=== PATIENT | female | born 1960 | race Caucasian/White ===

== ENCOUNTER 2022-08-26 08:39 | Day surgery (SDC) | payer MEDICARE, MEDICAID, SELFPAY ==
--- NOTE | 2022-08-26 | OP_ITS ---
OPERATION DATE: ??08/26/2022 ADDENDUM:? Please add to the end of the report:? Follow up colonoscopy should be in five years due to family history of colon cancer. ALEKSANDRA
[2022-08-26 08:59] LABS: Glucometer 201 mg/dL (74-106)
[2022-08-26 09:16] VITALS: BP 164/90; PULSE 85; RESP 16; TEMP 35.9; O2SAT 95; BMI 49.4
--- NOTE | 2022-08-26 09:24 | PC.NURSE ---
wears hearing aids
[2022-08-26] MEDS: LACTATED RINGER'S SOLUTION 1,000 ML 50 ML IV (09:30)
[2022-08-26 12:05] VITALS: BP 147/95; PULSE 77; RESP 16; TEMP 36.4; O2SAT 96
--- NOTE | 2022-08-26 12:06 | OP_ITS ---
OPERATION DATE: ??08/26/2022 PREOPERATIVE DIAGNOSIS:? Colorectal screening. POSTOPERATIVE DIAGNOSIS:? Sigmoid diverticulosis. PROCEDURE:? Colonoscopy to cecum. SURGEON:? Job Joyce M.D. ANESTHESIA: ?Monitored anesthesia care. ESTIMATED BLOOD LOSS:? Less than 1 mL. INDICATIONS AND CONSENT:? Patient is a 62-year-old female with a family history of colon cancer, presents for screening colonoscopy, last was in 2017.? Indications, risks, benefits, alternatives of proceeding with colonoscopy were explained extensively to the patient, including the risks of bleeding, colon perforation or anesthetic complications.? All of her questions were answered.? Informed consent was obtained. PROCEDURE:? Patient brought to the operating room, placed in the left lateral decubitus position.? Monitored anesthesia care was provided.? Rectal exam was performed which showed no masses or blood.? The scope was inserted into the anal canal.? Under direct visualization was advanced.? With the aid of abdominal compression, it was advanced to the cecum where cecal markings were clearly identified.? There was noted to be a good prep.? Upon withdrawal of the scope, mucosal surfaces were carefully examined.? There were no mass lesions or polyps.? No inflammatory changes or ulcerations.? There was moderate to severe sigmoid diverticulosis with redundancy and spasm of the colon.? The scope was retroflexed in the anal canal.? There were noted to be some prominent rectal veins.? No significant hemorrhoidal disease.? Scope was then withdrawn.? Patient tolerated procedure well, was sent to recovery room in good condition. CC:? Gianfranco Baker M.D. MTDRobert
[2022-08-26 12:20] VITALS: BP 155/88; PULSE 83; RESP 16; O2SAT 95
[2022-08-26 12:35] VITALS: BP 150/84; PULSE 84; RESP 16; O2SAT 96
== END 2022-08-26 12:45 | disposition home or self-care (01) ==
PROVIDERS: PCP Family Medicine; Visit Provider Surgery
PROC: (CPT 45378; principal; 2022-08-26 09:40)
DX: Z12.11 Encounter for screening for malignant neoplasm of colon (principal); K57.30 Diverticulosis of large intestine without perforation or abscess without bleeding; Z80.0 Family history of malignant neoplasm of digestive organs; Q43.8 Other specified congenital malformations of intestine; K58.9 Irritable bowel syndrome, unspecified; I87.8 Other specified disorders of veins; J44.9 Chronic obstructive pulmonary disease, unspecified; E11.22 Type 2 diabetes mellitus with diabetic chronic kidney disease; I12.9 Hypertensive chronic kidney disease with stage 1 through stage 4 chronic kidney disease, or unspecified chronic kidney disease; N18.9 Chronic kidney disease, unspecified; F32.A Depression, unspecified; H91.90 Unspecified hearing loss, unspecified ear; E78.5 Hyperlipidemia, unspecified; G47.33 Obstructive sleep apnea (adult) (pediatric); G62.9 Polyneuropathy, unspecified; Z87.891 Personal history of nicotine dependence; Z95.1 Presence of aortocoronary bypass graft; Z90.49 Acquired absence of other specified parts of digestive tract; Z90.710 Acquired absence of both cervix and uterus; Z79.82 Long term (current) use of aspirin; Z79.899 Other long term (current) drug therapy; Z79.4 Long term (current) use of insulin
CPT/HCPCS: 45378; 36415; 82948; J2704

== ENCOUNTER 2022-10-09 21:17 | Emergency (ER) | payer MEDICARE, MEDICAID, SELFPAY ==
[2022-10-09 21:22] VITALS: BP 158/93; PULSE 82; RESP 16; TEMP 36.7; O2SAT 95; BMI 34.7
--- NOTE | 2022-10-09 21:44 | CT_ITS ---
[address] [address] Patient Name: PATO HAN MRN: [id number] date: 1960 Sex: F Assigned Patient Location: ER Current Patient Location: .[facility] Accession/Order Number: [id number] Exam Date: 10/09/2022 21:56 Report Date: 10/09/2022 22:27 At the request of: INÉS SHULTZ Procedure: CT chest wo con EXAM: CT chest wo con TECHNIQUE: Axial CT images were obtained of the chest without intravenous contrast administration. Sagittal and coronal reformatted images were also obtained. Dose reduction techniques were achieved by using automated exposure control and/or adjustment of mA and/or kV according to patient size and/or use of iterative reconstruction technique. HISTORY: trauma COMPARISON: 07/28/2022 FINDINGS: Neck and Axilla: No lower neck or axillary lymphadenopathy. Mediastinum and Brigid: No hilar or mediastinal lymphadenopathy. The esophagus is grossly unremarkable without dilatation or gross mass lesion. Heart and Major Vessels: Coronary calcification. No pericardial effusion. The aorta and central pulmonary arteries are unremarkable for size. Lung Lowe: The lungs are clear of acute infiltrate or mass. Pleural Spaces: No significant pleural effusion. No pneumothorax. Upper Abdomen: No acute abnormality identified. Chest Wall: Moderate degenerative endplate changes in the mid to lower thoracic spine. Mild deformity of the right fifth rib anterior laterally could represent an acute fracture. Multiple old healed left rib fractures. Mild deformity of left sixth rib anteriorly questionable for an acute fracture. CT/CT chest wo con IMPRESSION: Question nonspecific fracture of the right fifth rib. Question undisplaced fracture of left sixth rib. No additional acute traumatic injury. Electronically authenticated by: MARIO FELDMAN Date: 10/09/2022 22:27
[2022-10-09] MEDS: KETOROLAC TROMETHAMINE 30 MG/ML VIAL 15 MG IM (22:30)
[2022-10-09] MEDS: TRAMADOL HCL 50 MG TABLET PO (23:37)
--- NOTE | 2022-10-09 23:56 | ED.GENADUL1 ---
HPI - General Adult General Chief complaint: Extremity Injury, Upper Stated complaint: FALL, UPPER EXTREMITY, CHEST PAIN Time Seen by Provider: 10/09/22 21:41 Source: patient Mode of arrival: walk-in History of Present Illness HPI narrative: The patient presenting with right-sided chest wall pain that started after she fell down few days ago and hit the right side of her chest wall with dog door, the patient mentioned that there was no dizziness no other injuries no head injury and she has been compliant for right-sided chest wall pain that comes whenever she take a deep breath or move her right arm No other complaints the patient mentioned that she have a old history of falling and she had at that time multiple rib fracture Related Data Home Medications Medication Instructions Recorded Confirmed Colace PRN constipation 08/17/22 aspirin 81 mg tablet,delayed 81 mg PO DAILY 08/17/22 08/17/22 release (Adult Aspirin Regimen) atorvastatin 80 mg tablet 80 mg PO DAILY 08/17/22 08/17/22 bupropion HCl 150 mg tablet,12 hr 150 mg PO DAILY 08/17/22 08/17/22 sustained-release (Wellbutrin SR) carvedilol 25 mg tablet (Coreg) 25 mg PO BID 08/17/22 08/17/22 duloxetine 60 mg capsule,delayed 60 mg PO DAILY 08/17/22 08/17/22 release (Cymbalta) gabapentin 400 mg capsule 400 mg PO TID 08/17/22 08/17/22 glimepiride 4 mg tablet 4 mg PO BID 08/17/22 08/17/22 insulin glargine 100 unit/mL 27 unit subcut BID 08/17/22 08/17/22 subcutaneous solution (Lantus U-100 Insulin) isosorbide mononitrate 30 mg 30 mg PO QAM 08/17/22 08/17/22 tablet,extended release 24 hr multivitamin with minerals-iron ml PO 08/17/22 fumarate 9 mg iron/15 mL oral liquid (Complete Multivitamin-Multimineral) sitagliptin phosphate 50 1 tab PO BID 08/17/22 08/17/22 mg-metformin 1,000 mg tablet (Janumet) amlodipine 5 mg tablet (Norvasc) 5 mg PO DAILY 08/26/22 08/26/22 Previous Rx's Medication Instructions Recorded meloxicam 15 mg tablet 15 mg PO DAILY PRN pain #10 tabs 10/09/22 tramadol 50 mg tablet 50 mg PO Q8H PRN pain 2 days #6 10/09/22 tabs Allergies Allergy/AdvReac Type Severity Reaction Status Date / Time No Known Drug Allergies Allergy Unverified 08/17/22 13:54 Review of Systems ROS Status of ROS 10 or more systems reviewed and unremarkable except as noted in history and below [facility] Medical History (Updated 10/09/22 @ 23:10 by Roseann Castano MD) Surgical History (Updated 08/17/22 @ 14:09 by Joana Wisdom, RN) Family History (Updated 08/17/22 @ 14:11 by Joana Wisdom, MYRNA) Brother Family history of hypertension Asthma Colon cancer Prostate cancer Father Family history of hypertension Family history of myocardial infarction Mother Family history of hypertension Asthma Social History (Updated 08/26/22 @ 09:07 by Sandy Nguyen) Within the past year, how often did you have a drink containing alcohol: never Score interpretation: A score less than 3 is consistent with normal alcohol consumption. Smoking status: Former smoker What tobacco products do you use: cigarettes Pack-years instructions: Please document either packs per day or cigarettes per day in order for pack years to calculate correctly. If using both packs per day and cigarettes per day, please make sure that they denote the same thing. If they differ, pack-years will calculate based on packs per day. Packs Per Day Cigarettes Per Day 1/4 of a pack 5 1/2 a pack 10 3/4 of a pack 15 1 pack 20 1.5 pack 30 2 packs 40 2.5 packs 50 3 packs 60 Packs per day: 1 Cigarettes per day: 20 Smoking quit date/years: >15 years ago Exam Narrative Exam Narrative: Nurses notes and vital signs reviewed and patient is not hypoxic. General: Well-appearing and in no apparent distress. Skin: Warm, dry, no pallor noted. No rash. Head: Normocephalic, atraumatic. Neck: Supple, non-tender. Eye: Pupils are equal, round and EOMI. No scleral icterus. Ears, Nose, Mouth, and Throat: TM are clear, no nasal mucosal hypertrophy. Oral mucosa is moist, no posterior oropharynx erythema, uvula is mid-line Cardiovascular: Regular Rate and Rhythm without murmur, gallop or rub. Respiratory: No accessory muscle use or respiratory distress. Lungs are clear to auscultation, no wheezing, rales or rhonchi Chest Wall: Tenderness upon palpation of the midaxillary line on the right side just below the armpit no ecchymosis Back: No midline thoracic or lumbar vertebral tenderness. No CVA tenderness Musculoskeletal: normal ROM, no calf or popliteal tenderness, no lower extremity edema/swelling GI: Abdomen is soft, non-distended. Normal bowel sounds. No masses appreciated. No tenderness to palpation. No rebound, guarding, or rigidity noted. Neurological: A&O x4. No cranial nerve dysfunction observed. No truncal ataxia. Moves all extremities. Sensation intact. Psychiatric: Cooperative and interactive. Normal mood and affect. Constitutional Vital Signs, click to edit/add: Last Vital Signs Temp 98.1 F 10/09/22 21:22 Pulse 82 10/09/22 21:22 Resp 16 10/09/22 21:22 BP 158/93 H 10/09/22 21:22 Pulse Ox 95 10/09/22 21:22 O2 Del Method Room Air 10/09/22 21:22 Course Vital Signs Vital signs: Vital Signs Temperature 98.1 F 10/09/22 21:22 Pulse Rate 82 10/09/22 21:22 Respiratory Rate 16 10/09/22 21:22 Blood Pressure 158/93 H 10/09/22 21:22 Pulse Oximetry 95 10/09/22 21:22 Oxygen Delivery Method Room Air 10/09/22 21:22 Temperature 98.1 F 10/09/22 21:22 Pulse Rate 82 10/09/22 21:22 Respiratory Rate 16 10/09/22 21:22 Blood Pressure 158/93 H 10/09/22 21:22 Pulse Oximetry 95 10/09/22 21:22 Oxygen Delivery Method Room Air 10/09/22 21:22 Medical Decision Making MDM Narrative Medical decision making narrative: CT of the chest wall shows that the patient have possible fourth rib fracture nondisplaced on the right side over the patient have history of fall and she had multiple old healing fractures The patient will be treated supportively with tramadol and Mobic She is also to use her incentive spirometer that she have at home and she was instructed about monitoring her symptoms for any fever or cough she is to come back to the ER The patient is to follow up with primary care physician in next 2-3 days or to return to the emergency department should any of the signs or symptoms worsen or new symptoms develop. The patient agrees with the following Diagnosis and Treatment plan and the patient will be discharged home. Discharge Plan Discharge Chief Complaint: Extremity Injury, Upper Clinical Impression: Closed rib fracture, Contusion of rib Patient Disposition: Home, Self-Care Time of Disposition Decision: 23:08 Condition: Good Mode of Transportation: Private Vehicle Prescriptions / Home Meds: New meloxicam 15 mg tablet 15 mg PO DAILY PRN (Reason: pain) Qty: 10 0RF tramadol 50 mg tablet 50 mg PO Q8H PRN (Reason: pain) 2 Days Qty: 6 0RF No Action glimepiride 4 mg tablet 4 mg PO BID isosorbide mononitrate 30 mg tablet extended release 24 hr 30 mg PO QAM aspirin [Adult Aspirin Regimen] 81 mg tablet,delayed release (DR/EC) 81 mg PO DAILY atorvastatin 80 mg tablet 80 mg PO DAILY carvedilol [Coreg] 25 mg tablet 25 mg PO BID Rx Instructions: must administer with a meal/food Colace PRN (Reason: constipation) duloxetine [Cymbalta] 60 mg capsule,delayed release(DR/EC) 60 mg PO DAILY gabapentin 400 mg capsule 400 mg PO TID Janumet 50-1,000 mg tablet 1 tab PO BID insulin glargine [Lantus U-100 Insulin] 100 unit/mL solution 27 unit subcut BID Complete Multivitamin-Mineral 9 mg iron/15 mL liquid PO bupropion HCl [Wellbutrin SR] 150 mg tablet sustained-release 12 hr 150 mg PO DAILY amlodipine [Norvasc] 5 mg tablet 5 mg PO DAILY Instructions: Rib Fracture (ED) Stand Alone Forms: Portal Instructions Referrals: MARIAM LAU [Primary Care Provider] - 1 week Discharge Date/Time: 10/09/22 23:47
== END 2022-10-09 23:47 | disposition home or self-care (01) ==
PROVIDERS: Emergency Provider Emergency Medicine; PCP Family Medicine
DX: S22.31XA Fracture of one rib, right side, initial encounter for closed fracture (principal); S20.211A Contusion of right front wall of thorax, initial encounter; Z79.82 Long term (current) use of aspirin; Z79.899 Other long term (current) drug therapy; Z79.4 Long term (current) use of insulin; Z87.891 Personal history of nicotine dependence; W19.XXXA Unspecified fall, initial encounter
CPT/HCPCS: 71250; 96372; 99284

== ENCOUNTER 2022-12-05 14:05 | Emergency (ER) | payer MEDICARE, MEDICAID, SELFPAY ==
[2022-12-05 14:09] VITALS: BP 143/75; PULSE 81; RESP 20; O2SAT 95; BMI 35.3
[2022-12-05 14:22] LABS: Glucometer 66 mg/dL (74-106)
--- NOTE | 2022-12-05 14:29 | ECG_ITS ---
[facility] Test Date: 2022-12-05 Pat Name: PATO HAN Department: Room: - Gender: Female Ct Scan Tech: : 1960 Requested By: MARIAM LAU Order Number: [id number] Reading MD: SHANICE SELLERS Measurements Intervals [place] Rate: 75 P: 43 [place]: 192 QRS: 53 QRSD: 80 T: 72 QT: 372 QTc: 400 Interpretive Statements 1100 Sinus rhythm 9110 normal ECG No previous ECG available for comparison Electronically Signed On 12-06-2022 18:57:47 EDT by SHANICE SELLERS
--- NOTE | 2022-12-05 14:30 | ED.GENADUL1 ---
HPI - General Adult General Chief complaint: Weakness Stated complaint: LOW BLOOD SUGAR/WEAKNESS Time Seen by Provider: 12/05/22 14:23 Source: patient and family Mode of arrival: Wheelchair History of Present Illness HPI narrative: 62-year-old female presents for low blood sugar. She was weak and nauseous. The patient and her family state that she could not is taking more of her medication and she supposed to because it's inappropriate filled syringe and her pills are in a bubble pack. No dysuria hematuria or fever. She was fine yesterday. Related Data Home Medications Medication Instructions Recorded Confirmed Colace PRN constipation 08/17/22 aspirin 81 mg tablet,delayed 81 mg PO DAILY 08/17/22 08/17/22 release (Adult Aspirin Regimen) atorvastatin 80 mg tablet 80 mg PO DAILY 08/17/22 08/17/22 bupropion HCl 150 mg tablet,12 hr 150 mg PO DAILY 08/17/22 08/17/22 sustained-release (Wellbutrin SR) carvedilol 25 mg tablet (Coreg) 25 mg PO BID 08/17/22 08/17/22 duloxetine 60 mg capsule,delayed 60 mg PO DAILY 08/17/22 08/17/22 release (Cymbalta) gabapentin 400 mg capsule 400 mg PO TID 08/17/22 08/17/22 glimepiride 4 mg tablet 4 mg PO BID 08/17/22 08/17/22 insulin glargine 100 unit/mL 27 unit subcut BID 08/17/22 08/17/22 subcutaneous solution (Lantus U-100 Insulin) isosorbide mononitrate 30 mg 30 mg PO QAM 08/17/22 08/17/22 tablet,extended release 24 hr multivitamin with minerals-iron ml PO 08/17/22 fumarate 9 mg iron/15 mL oral liquid (Complete Multivitamin-Multimineral) sitagliptin phosphate 50 1 tab PO BID 08/17/22 08/17/22 mg-metformin 1,000 mg tablet (Janumet) amlodipine 5 mg tablet (Norvasc) 5 mg PO DAILY 08/26/22 08/26/22 Previous Rx's Medication Instructions Recorded meloxicam 15 mg tablet 15 mg PO DAILY PRN pain #10 tabs 10/09/22 tramadol 50 mg tablet 50 mg PO Q8H PRN pain 2 days #6 10/09/22 tabs Allergies Allergy/AdvReac Type Severity Reaction Status Date / Time No Known Drug Allergies Allergy Unverified 08/17/22 13:54 Review of Systems ROS Narrative A ten point review of systems is negative except as noted above. [facility] Medical History (Updated 12/05/22 @ 16:50 by Julian Severino MD) Surgical History (Updated 08/17/22 @ 14:09 by Joana Wisdom, RN) Family History (Updated 08/17/22 @ 14:11 by Joana Wisdom RN) Brother Family history of hypertension Asthma Colon cancer Prostate cancer Father Family history of hypertension Family history of myocardial infarction Mother Family history of hypertension Asthma Social History (Updated 08/26/22 @ 09:07 by Sandy Nguyen) Within the past year, how often did you have a drink containing alcohol: never Score interpretation: A score less than 3 is consistent with normal alcohol consumption. Smoking status: Former smoker What tobacco products do you use: cigarettes Pack-years instructions: Please document either packs per day or cigarettes per day in order for pack years to calculate correctly. If using both packs per day and cigarettes per day, please make sure that they denote the same thing. If they differ, pack-years will calculate based on packs per day. Packs Per Day Cigarettes Per Day 1/4 of a pack 5 1/2 a pack 10 3/4 of a pack 15 1 pack 20 1.5 pack 30 2 packs 40 2.5 packs 50 3 packs 60 Packs per day: 1 Cigarettes per day: 20 Smoking quit date/years: >15 years ago Exam Narrative Exam Narrative: Nurses note and vital signs reviewed and patient is not hypoxic. General: The patient appears well and in no apparent distress. Patient is resting comfortably on cart. Skin: Warm, dry, no pallor noted. There is no rash noted. Head: Normocephalic, atraumatic Eye: Normal conjunctiva, no drainage Ears, Nose, Mouth, and Throat: oral mucosa is moist. Nares patent. Cardiovascular: Regular Rate and Rhythm Respiratory: Patient is in no distress, no accessory muscle use, lungs are clear to auscultation, no wheezing, rales or rhonchi Back: non-tender GI: soft and nontender Musculoskeletal: The patient has no evidence of calf tenderness, no pitting edema, symmetrical pulses noted bilaterally Neurological: A&O x4, normal speech Psychiatric: Cooperative Constitutional Vital Signs, click to edit/add: Last Vital Signs Pulse 81 12/05/22 14:09 Resp 20 12/05/22 14:09 BP 143/75 H 12/05/22 14:09 Pulse Ox 95 12/05/22 14:09 O2 Del Method Room Air 12/05/22 14:09 Course Vital Signs Vital signs: Vital Signs Pulse Rate 81 12/05/22 14:09 Respiratory Rate 20 12/05/22 14:09 Blood Pressure 143/75 H 12/05/22 14:09 Pulse Oximetry 95 12/05/22 14:09 Oxygen Delivery Method Room Air 12/05/22 14:09 Pulse Rate 81 12/05/22 14:09 Respiratory Rate 20 12/05/22 14:09 Blood Pressure 143/75 H 12/05/22 14:09 Pulse Oximetry 95 12/05/22 14:09 Oxygen Delivery Method Room Air 12/05/22 14:09 Medical Decision Making MDM Narrative Medical decision making narrative: the patient's blood sugar has normalized here and her workup is negative. She'll be discharged home. She has an appointment with her new physician in a few days and she'll keep that appointment. Treatment diagnosis and follow-up were discussed with the patient. Differential Diagnosis Differential Diagnosis: hypoglycemia, accidental overmedication Lab Data Lab results reviewed: Yes I reviewed the patient's lab results Labs: Lab Results 12/05/22 12/05/22 12/05/22 Range/Units 14:11 14:20 14:38 WBC 11.1 H (4.0-11.0) 10^3/uL RBC 4.67 (4.20-5.40) 10^6/uL Hgb 12.0 (12.0-16.0) g/dL Hct 37.5 (36.0-48.0) % MCV 80.3 L (81.0-99.0) fL MCH 25.7 L (26.7-34.0) pg MCHC 32.0 (29.9-35.2) g/dL RDW 14.5 (11.0-15.0) % Plt Count 285 (150-450) 10^3/uL MPV 8.6 L (9.5-13.5) fL Neut % (Auto) 58.8 (43.0-75.0) % Lymph % (Auto) 27.5 (20.5-60.0) % [place] % (Auto) 9.3 (1.7-12.0) % Eos % (Auto) 3.2 (0.9-7.0) % Baso % (Auto) 0.8 (0.2-2.0) % Neut # (Auto) 6.5 (1.4-6.5) 10^3/uL Lymph # (Auto) 3.1 (1.2-3.8) 10^3/uL [place] # (Auto) 1.0 H (0.3-0.8) 10^3/uL Eos # (Auto) 0.4 (0.0-0.7) 10^3/uL Baso # (Auto) 0.1 (0.0-0.1) 10^3/uL Abs Immat Gran (auto) 0.04 H (0.00-0.03) 10^3/uL Imm/Tot Granulo (auto) 0.4 (0.0-0.5) % Sodium 143 (136-145) mmol/L Potassium 3.9 (3.5-5.1) mmol/L Chloride 108 H (98-107) mmol/L Carbon Dioxide 25.5 (21.0-32.0) mmol/L Anion Gap 13.4 BUN 17.0 (7.0-18.0) mg/dL Creatinine 1.16 H (0.55-1.02) mg/dL Est GFR ( Amer) 57 L (>=60) Est GFR (Non-Af Amer) 47 L (>=60) BUN/Creatinine Ratio 14.7 Glucose 69 L (74-106) mg/dL Calcium 9.4 (8.5-10.1) mg/dL Urine Color Yellow (YELLOW) Urine Clarity Clear (CLEAR) Urine pH 5.5 (5.0-9.0) Ur Specific [place] >=1.030 A (1.005-1.025) Urine Protein 100 A (NEG/TRACE) mg/dL Urine Glucose (UA) 100 A (NEGATIVE) mg/dL Urine Ketones Trace A (NEGATIVE) mg/dL Urine Occult Blood Negative (NEGATIVE) Urine Nitrite Negative (NEGATIVE) Urine Bilirubin Negative (NEGATIVE) Urine Urobilinogen 0.2 (0.2-1.0) EU/dL Ur Leukocyte Esterase Negative (NEGATIVE) Urine RBC None seen (0-2) #/HPF Urine WBC None seen (NONE SEEN) #/HPF Ur Squamous Epith Cells Few A (NONE/RARE) #/LPF Urine Crystals Seen A (None Seen) #/HPF Calcium Oxalate Crystal Rare Urine Bacteria None seen (NONE SEEN) #/HPF Urine Casts Seen A (NONE SEEN) #/LPF Hyaline Casts Few Urine Mucus None seen (NONE SEEN) Ur Culture Indicated? No POC Glucose 66 L (74-106) mg/dL 12/05/22 Range/Units 14:46 WBC (4.0-11.0) 10^3/uL RBC (4.20-5.40) 10^6/uL Hgb (12.0-16.0) g/dL Hct (36.0-48.0) % MCV (81.0-99.0) fL MCH (26.7-34.0) pg MCHC (29.9-35.2) g/dL RDW (11.0-15.0) % Plt Count (150-450) 10^3/uL MPV (9.5-13.5) fL Neut % (Auto) (43.0-75.0) % Lymph % (Auto) (20.5-60.0) % [place] % (Auto) (1.7-12.0) % Eos % (Auto) (0.9-7.0) % Baso % (Auto) (0.2-2.0) % Neut # (Auto) (1.4-6.5) 10^3/uL Lymph # (Auto) (1.2-3.8) 10^3/uL [place] # (Auto) (0.3-0.8) 10^3/uL Eos # (Auto) (0.0-0.7) 10^3/uL Baso # (Auto) (0.0-0.1) 10^3/uL Abs Immat Gran (auto) (0.00-0.03) 10^3/uL Imm/Tot Granulo (auto) (0.0-0.5) % Sodium (136-145) mmol/L Potassium (3.5-5.1) mmol/L Chloride (98-107) mmol/L Carbon Dioxide (21.0-32.0) mmol/L Anion Gap BUN (7.0-18.0) mg/dL Creatinine (0.55-1.02) mg/dL Est GFR ( Amer) (>=60) Est GFR (Non-Af Amer) (>=60) BUN/Creatinine Ratio Glucose (74-106) mg/dL Calcium (8.5-10.1) mg/dL Urine Color (YELLOW) Urine Clarity (CLEAR) Urine pH (5.0-9.0) Ur Specific [place] (1.005-1.025) Urine Protein (NEG/TRACE) mg/dL Urine Glucose (UA) (NEGATIVE) mg/dL Urine Ketones (NEGATIVE) mg/dL Urine Occult Blood (NEGATIVE) Urine Nitrite (NEGATIVE) Urine Bilirubin (NEGATIVE) Urine Urobilinogen (0.2-1.0) EU/dL Ur Leukocyte Esterase (NEGATIVE) Urine RBC (0-2) #/HPF Urine WBC (NONE SEEN) #/HPF Ur Squamous Epith Cells (NONE/RARE) #/LPF Urine Crystals (None Seen) #/HPF Calcium Oxalate Crystal Urine Bacteria (NONE SEEN) #/HPF Urine Casts (NONE SEEN) #/LPF Hyaline Casts Urine Mucus (NONE SEEN) Ur Culture Indicated? POC Glucose 179 H (74-106) mg/dL ECG Data Attestation: I personally reviewed and interpreted this ECG as follows: (EKG on my interpretation shows normal sinus rhythm with rate of seventy-five and no acute changes) Discharge Plan Discharge Chief Complaint: Weakness Clinical Impression: Hypoglycemia associated with diabetes Patient Disposition: Home, Self-Care Time of Disposition Decision: 16:48 Condition: Good Mode of Transportation: Private Vehicle Prescriptions / Home Meds: No Action meloxicam 15 mg tablet 15 mg PO DAILY PRN (Reason: pain) Qty: 10 0RF tramadol 50 mg tablet 50 mg PO Q8H PRN (Reason: pain) 2 Days Qty: 6 0RF glimepiride 4 mg tablet 4 mg PO BID isosorbide mononitrate 30 mg tablet extended release 24 hr 30 mg PO QAM aspirin [Adult Aspirin Regimen] 81 mg tablet,delayed release (DR/EC) 81 mg PO DAILY atorvastatin 80 mg tablet 80 mg PO DAILY carvedilol [Coreg] 25 mg tablet 25 mg PO BID Rx Instructions: must administer with a meal/food Colace PRN (Reason: constipation) duloxetine [Cymbalta] 60 mg capsule,delayed release(DR/EC) 60 mg PO DAILY gabapentin 400 mg capsule 400 mg PO TID Janumet 50-1,000 mg tablet 1 tab PO BID insulin glargine [Lantus U-100 Insulin] 100 unit/mL solution 27 unit subcut BID Complete Multivitamin-Mineral 9 mg iron/15 mL liquid PO bupropion HCl [Wellbutrin SR] 150 mg tablet sustained-release 12 hr 150 mg PO DAILY amlodipine [Norvasc] 5 mg tablet 5 mg PO DAILY Instructions: Hypoglycemia in a Person with Diabetes (ED) Stand Alone Forms: Portal Instructions Referrals: MARIAM LAU [Primary Care Provider] - 1 week
--- NOTE | 2022-12-05 14:33 | PC.NURSE ---
pt took her BS this morning, it was 175. Took her usual 30 units of regular insulin. shortly after felt weak, dizzy and nauseous. checked BS on dexcom and was 53 -- pt did eat PB crackers and a burrito. BS 66 upon arrival to er
[2022-12-05 14:34] LABS: Basophils Absolute Auto 0.1 10^3/uL (0.0-0.1); Basophils Percent Auto 0.8 % (0.2-2.0); Eosinophils Absolute Auto 0.4 10^3/uL (0.0-0.7); Eosinophils Percent Auto 3.2 % (0.9-7.0); Hematocrit 37.5 % (36.0-48.0); Immature Granulocytes Abs Auto 0.04 10^3/uL (0.00-0.03); Immature Granulocytes Pct Auto 0.4 % (0.0-0.5); Lymphocytes Absolute Auto 3.1 10^3/uL (1.2-3.8); Lymphocytes Percent Auto 27.5 % (20.5-60.0); Mean Corpuscular Hemoglobin 25.7 pg (26.7-34.0); Mean Corpuscular Volume 80.3 fL (81.0-99.0); Mean Platelet Volume 8.6 fL (9.5-13.5); Monocytes Percent Auto 9.3 % (1.7-12.0); Neutrophils Absolute Auto 6.5 10^3/uL (1.4-6.5); Neutrophils Percent Auto 58.8 % (43.0-75.0); Platelet Count 285 10^3/uL (150-450); Red Blood Count 4.67 10^6/uL (4.20-5.40); Red Cell Distribution Width 14.5 % (11.0-15.0); White Blood Count 11.1 10^3/uL (4.0-11.0)
[2022-12-05 14:38] LABS: Anion Gap 13.4; BUN Creatinine Ratio 14.7; Calcium 9.4 mg/dL (8.5-10.1); Carbon Dioxide 25.5 mmol/L (21.0-32.0); Chloride 108 mmol/L (98-107); Estimated GFR (African America 57 (>=60); Estimated GFR (Non-African Ame 47 (>=60); Glucose 69 mg/dL (74-106); Potassium 3.9 mmol/L (3.5-5.1); Sodium 143 mmol/L (136-145)
[2022-12-05 14:54] LABS: Glucometer 179 mg/dL (74-106)
[2022-12-05] MEDS: ONDANSETRON PF 4 MG/2 ML VIAL IV (15:03)
[2022-12-05 16:37] LABS: Bilirubin Urine NEGATIVE (NEGATIVE); Blood Urine NEGATIVE (NEGATIVE); Clarity Urine CLEAR (CLEAR); Color Urine YELLOW (YELLOW); Glucose Urine UA 100 mg/dL (NEGATIVE); Ketones Urine TRACE mg/dL (NEGATIVE); Leukocyte Esterase Urine NEGATIVE (NEGATIVE); Nitrite Urine NEGATIVE (NEGATIVE); Protein Urine 100 mg/dL (NEG/TRACE); Specific Gravity Urine >=1.030 (1.005-1.025); Urobilinogen Urine 0.2 EU/dL (0.2-1.0); pH Urine 5.5 (5.0-9.0)
[2022-12-05 16:40] LABS: Bacteria Urine NONE SEEN #/HPF (NONE SEEN); Calcium Oxalate Crystals Urine RARE; Cast Seen? SEEN #/LPF (NONE SEEN); Crystals Seen? Seen #/HPF (None Seen); Hyaline Casts Urine FEW; Mucus Urine NONE SEEN (NONE SEEN); RBC Urine NONE SEEN #/HPF (0-2); Squamous Epithelial Cell Urine FEW #/LPF (NONE/RARE); WBC Urine NONE SEEN #/HPF (NONE SEEN)
[2022-12-05 16:41] LABS: Urine Culture Indicated NO
== END 2022-12-05 17:02 | disposition home or self-care (01) ==
PROVIDERS: Emergency Provider Emergency Medicine; PCP Family Medicine
DX: E11.649 Type 2 diabetes mellitus with hypoglycemia without coma (principal); Z87.891 Personal history of nicotine dependence; Z79.82 Long term (current) use of aspirin; Z79.899 Other long term (current) drug therapy; Z79.4 Long term (current) use of insulin
CPT/HCPCS: 36415; 80048; 81001; 85025; 93005; 96374; 99285

== ENCOUNTER 2023-02-11 11:14 | Outpatient (OUT) | payer MEDICARE, MEDICAID, SELFPAY ==
--- NOTE | 2023-02-11 11:16 | MM_ITS ---
Patient Name: PATO HAN MR#: [id number] : 1960 Exam Date: 02/11/2023 Ordering Doctor: DR. SUSANNAH CLEMENT . RADIOLOGY REPORT PROCEDURE: MM TOMOSYNTHESIS SCREENING BI COMPARISON: MG MAMM SCREEN 3D NELDA CAD, 10/10/2021. MG MAMM SCREEN 3D NELDA CAD, 10/07/2020. MG MAMM SCREEN NELDA W CAD, 04/10/2019. MG MAMM NELDA SCRN W CAD DIG, 04/01/2007. INDICATIONS: Screening Calculator Name NCI Breast Cancer Risk Assessment Tool 5 Year Breast Cancer Risk 1.40% Lifetime Breast Cancer Risk 5.80% Personal Breast Cancer No Personal Ovarian Cancer No Treatments None Family Cancers Grandmother-maternal with liver cancer at age 69; Grandmother-paternal with colon cancer at age 72; Aunt-maternal with breast cancer at age 50; Aunt-maternal with breast cancer at age 63; Uncle-maternal with colon cancer at age 59. LOCATION: [facility] BREAST COMPOSITION: Scattered areas fibroglandular density. FINDINGS: DIAGNOSTIC CATEGORY 1--NEGATIVE. RIGHT BREAST: No significant suspicious finding. No significant change has occurred. LEFT BREAST: No significant suspicious finding. No significant change has occurred. RECOMMENDATIONS: ROUTINE MAMMOGRAM AND CLINICAL EVALUATION IN 12 MONTHS. PLEASE NOTE: A NORMAL MAMMOGRAM DOES NOT EXCLUDE THE POSSIBILITY OF BREAST CANCER. A CLINICALLY SUSPICIOUS PALPABLE LUMP SHOULD BE BIOPSIED. Dictated by: Mauro Danielle M.D. on 02/12/2023 at 13:33 Approved by: Mauro Danielle M.D. on 02/12/2023 at 13:40
== END 2023-02-11 11:15 | disposition home or self-care (01) ==
LOC: MAMMO 11:14
PROVIDERS: PCP Family Medicine; Visit Provider Family Medicine
DX: Z12.31 Encounter for screening mammogram for malignant neoplasm of breast (principal); Z80.8 Family history of malignant neoplasm of other organs or systems; Z80.0 Family history of malignant neoplasm of digestive organs; Z80.3 Family history of malignant neoplasm of breast
CPT/HCPCS: 77063; 77067

== ENCOUNTER 2023-06-02 07:41 | Outpatient (OUT) | payer MEDICARE, MEDICAID, SELFPAY ==
--- OUTSIDE RECORDS SUMMARY | 2023-06-02 07:44 | XMS_ITS | CCD ---
Demographics Address [address] [place] [address] Preferred Language en Marital Status Voodoo Affiliation Unknown Race White Ethnic Group or Author Organization [facility] Care Team Providers Care Fisher Purse Seine Name Role Phone PHYSICIAN, DEFAULT Admitting Unavailable PHYSICIAN, DEFAULT Attending Unavailable James Live Admitting Unavailable ANDREI TSE Referring Unavailable NORTH BILLERICA, GIANFRANCO Primary Care Unavailable CATE RAMIRZE Attending Unavailable FELIPE HUGO Admitting Unavailable NORTH BILLERICA, GIANFRANCO Referring Unavailable SID, GIANFRANCO Primary Care Unavailable Karen Ruvalcaba Attending Unavailable NM Procedure Practitioner Unavailab le Bernardo, Karen Surgeon Unavailable NM Procedure Practitioner Unavailab le UNKNOWN, PROVIDER Surgeon Unavailable NM Procedure Practitioner Unavailab le OANH, WANG R Surgeon Unavailable NM Procedure Practitioner Unavailab PHILIPPE Infante Surgeon Unavailable RAJINDER MOHAMUD Admitting Unavailable POCATELLO, DR ART June Consulting Unavailable NORTH BILLERICA, DR BECERRA Primary Care Unavailable RAJINDER MOHAMUD Attending Unavailable RAJINDER MOHAMUD Consulting Unavailable IDALIA, DR LUIS Santa Admitting Unavailabl e SID, DR BECERRA Primary Care Unavailable IDALIA, DR LUIS Santa Attending Unavailabl e IDALIA, DR LUIS Santa Consulting Unavailabl e Paolo Reyna Consulting Unavailable UNLSAVITA Glass Consulting Unavailable NORTH BILLERICA, DR BECERRA Attending Unavailable NORTH BILLERICA, DR BECERRA Admitting Unavailable NORTH BILLERICA, DR BECERRA Consulting Unavailable NORTH BILLERICA, DR BECERRA Primary Care Unavailable ROMAN, DR ISI Barajas Consulting Unavailable NORTH BILLERICA, DR BECERRA Admitting Unavailable NORTH BILLERICA, DR BECERRA Attending Unavailable NORTH BILLERICA, DR BECERRA Consulting Unavailable NORTH BILLERICA, DR BECERRA Primary Care Unavailable NORTH BILLERICA, DR BECERRA Admitting Unavailable NORTH BILLERICA, DR BECERRA Attending Unavailable NORTH BILLERICA, DR BECERRA Consulting Unavailable NORTH BILLERICA, DR BECERRA Primary Care Unavailable MARTINE MCINTOSH Attending Unavailable Dandre Burger Primary Care Physician Gianfranco Lau MD Primary Care Provider Job MOORE Referring Unavailable Job MOORE Attending Unavailable Dandre Burger Attending Unavailable Dandre Burger Attending Unavailable Dandre Bugrer Attending Unavailable Dandre Burger Attending Unavailable Dandre Burger Attending Unavailable Dandre Burger Attending Unavailable Dandre Burger Attending Unavailable Dandre Burger Admitting Unavailable Dandre Burger Admitting Unavailable Dandre Burger Attending Unavailable Ivett Rios Admitting Unavailable Ivett Rios Attending Unavailable GIANFRANCO LAU P Referring Unavailable NILLJob R Attending Unavailable GIANFRANCO LAU Referring Unavailable NILLJob Attending Unavailable SEAN VALIENTE Attending Unavailable SEAN VALIENTE Attending Unavailable Allergies Allergy Classification Reported Allergen(s) Allergy Type Date of Onset Reaction(s) Facility (1 source) No Known Medication Allergies; Translations: [No Known Medication Allergies] Propensity to adverse reactions (disorder) [facility] Repository Medications Current Medications Medication Drug Class(es) Dates Sig (Normalized) Sig (Original) amLODIPine 5 mg oral tablet (3 sources) Dihydropyridine Calcium Channel Connor Start: 07-31-2022 take 1 tablet by mouth once daily amLODIPine 5 mg Tab 5 mg = 1 tab(s), Oral, Daily, Refills(s) 0 Start Date: 07/31/22 Status: Ordered aspirin 81 mg delayed release oral tablet (3 sources) Platelet Aggregation Inhibitor, Nonsteroidal Anti-inflammatory Drug Start: 07-31-2022 take 1 tablet by mouth once daily aspirin 81 mg Oral EC Tab 81 mg = 1 tab(s), Oral, Daily, Refills(s) 0 Start Date: 07/31/22 Status: Ordered atorvastatin 80 mg oral tablet (3 sources) HMG-CoA Reductase Inhibitor Start: 07-31-2022 take 1 tablet by mouth once daily atorvastatin 80 mg Tab 80 mg = 1 tab(s), Oral, Daily, Refills(s) 0 Start Date: 07/31/22 Status: Ordered 12 hr buPROPion hydrochloride 150 mg extended release oral tablet (3 sources) Aminoketone Start: 07-31-2022 take 1 tablet by mouth once daily Wellbutrin SR 150 mg Tab-ER 150 mg = 1 tab(s), Oral, Daily, Refills(s) 0 Start Date: 07/31/22 Status: Ordered carvedilol 25 mg oral tablet (3 sources) alpha-Adrenergic Connor, beta-Adrenergic Connor Start: 07-31-2022 carvedilol 25 mg Tab 37.5 mg = 1.5 tab(s), Oral, BID, Refills(s) 0 Start Date: 07/31/22 Status: Ordered Start: 07-31-2022 take 1 tablet by alejandro twice daily carvedilol 25 mg Tab 25 mg = 1 tab(s), Oral, BID, Refills(s) 0 Start Date: 07/31/22 Status: Ordered docusate sodium 100 mg oral capsule (3 sources) Start: 07-31-2022 take 1 capsule by mouth once daily as needed for constipation Colace 100 mg Cap 100 mg = 1 cap(s), Oral, Daily, PRN for constipation, Refills(s) 0 Start Date: 07/31/22 Status: Ordered 0.5 ml dulaglutide 3 mg/ml auto-injector (3 sources) GLP-1 Receptor Agonist Start: 04-21-2023 inject 1.5 mg by subcutaneous injection every week Trulicity Pen 1.5 mg/0.5 mL subcutaneous solution 1.5 mg, SubCutaneous, qWeek, # 12 EA, Refills(s) 0, Pharmacy: [facility] #[id number], 157.5, cm, 04/05/23 7:03:00 EST, Height/Length Dosing, 88.1, kg, 04/05/23 7:03:00 EST, Weight Dosing Start Date: 04/21/23 Status: Ordered Start: 03-22-2023 inject 0.75 mg by lizarraga bcutaneous injection every week Trulicity Pen 0.75 mg/0.5 mL subcutaneous solution See Instructions, inject 0.75 milligrams subcutaneously every week, # 2 mL, Refills(s) 0, Pharmacy: [facility] #[id number], 157.5, cm, 12/14/22 6:58:00 EDT, Height/Length Dosing, 88.4, kg, 12/14/22 6:58:00 EDT, Weight Dosing Start Date: 03/22/23 Status: Ordered Start: 12-14-2022 inject 0.75 mg by lizarraga bcutaneous injection every week Trulicity Pen 0.75 mg/0.5 mL subcutaneous solution 0.75 mg, SubCutaneous, qWeek, # 4 EA, Refills(s) 0, Pharmacy: [facility] #[id number], 157.5, cm, 12/14/22 6:58:00 EDT, Height/Length Dosing, 88.4, kg, 12/14/22 6:58:00 EDT, Weight Dosing Start Date: 12/14/22 Status: Ordered duloxetine 60 mg Cap-DR (3 sources) Start: 07-31-2022 take 1 capsule by mouth once daily duloxetine 60 mg Cap-DR = 1 cap(s), Oral, Daily, Refills(s) 0 Start Date: 07/31/22 Status: Ordered gabapentin 400 mg oral capsule (3 sources) Anti-epileptic Agent Start: 12-28-2022 take 1 capsule by mouth three times daily gabapentin 400 mg Cap 400 mg = 1 cap(s), Oral, TID, # 270 cap(s), Refills(s) 0, Pharmacy: [facility] #[id number], 157.5, cm, 12/14/22 6:58:00 EDT, Height/Length Dosing, 88.4, kg, 12/14/22 6:58:00 EDT, Weight Dosing Start Date: 12/28/22 Status: Ordered Start: 07-22-2022 take 1 capsule by [facility] three times daily gabapentin 400 mg Cap 400 mg = 1 cap(s), Oral, TID, Refills(s) 0 Start Date: 07/22/22 Status: Ordered glimepiride 4 mg oral tablet (3 sources) Sulfonylurea Start: 07-22-2022 take 1 tablet by mouth twice daily Amaryl 4 mg Tab 4 mg = 1 tab(s), Oral, BID, Refills(s) 0 Start Date: 07/22/22 Status: Ordered insulin glargine 100 unt/ml injectable solution (3 sources) Insulin Analog Start: 07-22-2022 inject 30 [IU] by subcutaneous injection twice daily Lantus 100 units/mL Injection-Insulin See Instructions, 30 unit(s) SubCutaneous BID, Refills(s) 0 Start Date: 07/22/22 Status: Ordered Start: 07-22-2022 inject 27 [IU] by lizarraga bcutaneous injection twice daily Lantus 100 units/mL Injection-Insulin 27 unit(s), SubCutaneous, BID, Refills(s) 0 Start Date: 07/22/22 Status: Ordered 24 hr isosorbide mononitrate 30 mg extended release oral tablet (3 sources) Nitrate Vasodilator Start: 12-14-2022 take 1 tablet by mouth once daily isosorbide mononitrate 30 mg ER Tab 30 mg = 1 tab(s), Oral, Daily, Refills(s) 0 Start Date: 12/14/22 Status: Ordered metFORMIN hydrochloride 1000 mg / SITagliptin 50 mg oral tablet (3 sources) Biguanide, Dipeptidyl Peptidase 4 Inhibitor Start: 07-22-2022 take 1 tablet by mouth twice daily Janumet 50 mg/1000 mg oral tablet 1 tab(s), Oral, BID, Refill(s) 0 Start Date: 07/22/22 Status: Ordered methylPREDNISolone 4 mg oral tablet (1 source) Corticosteroid Start: 12-14-2022 End: 12-20-2022 Medrol Dosepack 4 mg Tab = 1 packet(s), Oral, As Directed, as directed on package labeling, X 6 day(s), # 21 tab(s), Refills(s) 0, Pharmacy: [facility] #[id number], 157.5, cm, 12/14/22 6:58:00 EDT, Height/Length Dosing, 88.4, kg, 12/14/22 6:58:00 EDT, Weight Dosing Start Date: 12/14/22 Stop Date: 12/20/22 Status: Ordered Multi Vitamins oral tablet (3 sources) Start: 07-31-2022 take 1 tablet by mouth once daily Multi Vitamins oral tablet 1 tab(s), Oral, Daily, Refill(s) 0 Start Date: 07/31/22 Status: Ordered Problems Active Problems Problem Classification Problem Date Documented Date Episodic/Chronic Calculus of urinary tract (1 source) Personal history of urinary calculi; Translations: [PERSONAL HISTORY OF URINARY CALCULI] Onset: 04-25-2018 Episodic Cancer; other and unspecified primary (1 source) Personal history of malignant neoplasm of soft tissue; Translations: [PERSONAL HISTORY OF MALIGNANT NEOPLASM OF SOFT TISSUE] Onset: 04-25-2018 Episodic Cardiac dysrhythmias (1 source) Tachycardia, unspecified; Translations: [TACHYCARDIA, UNSPECIFIED] Onset: 04-25-2018 Episodic Chronic kidney disease (4 sources) Chronic kidney disease, unspecified; Translations: [Chronic kidney disease] Onset: 10-16-2021 07-22-2022 Chronic Chronic obstructive pulmonary disease and bronchiectasis (4 sources) Chronic obstructive pulmonary disease, unspecified; Translations: [Chronic obstructive lung disease] Onset: 04-25-2018 07-22-2022 Chronic Coagulation and hemorrhagic disorders (1 source) Thrombocytopenia, unspecified; Translations: [THROMBOCYTOPENIA, UNSPECIFIED] Onset: 04-25-2018 Chronic Coronary atherosclerosis and other heart disease (9 sources) Atherosclerotic heart disease of [place] coronary artery with unstable angina pectoris; Translations: [Preinfarction syndrome] Onset: 03-20-2018 Chronic Coronary atherosclerosis and other heart disease (2 sources) Presence of aortocoronary bypass graft; Translations: [Presence of aortocoronary bypass graft] Onset: 06-11-2022 Episodic Deficiency and other anemia (1 source) Iron deficiency anemia secondary to blood loss (chronic); Translations: [IRON DEFICIENCY ANEMIA SECONDARY TO BLOOD LOSS (CHRONIC)] Onset: 04-25-2018 Chronic Diabetes mellitus with complications (6 sources) Type 2 diabetes mellitus with diabetic chronic kidney disease; Translations: [Disorder of kidney due to diabetes mellitus] Onset: 10-10-2021 Chronic Diabetes mellitus with complications (1 source) Type 2 diabetes mellitus with diabetic polyneuropathy; Translations: [TYPE 2 DIABETES MELLITUS WITH DIABETIC POLYNEUROPATHY] Onset: 03-20-2018 Diabetes mellitus without complication (7 sources) Type 2 diabetes mellitus without complications; Translations: [Diabetes mellitus] Onset: 07-20-2022 Chronic Comment on above: linked DM with HLD p er outpatient CDI policy. Disorders of lipid metabolism (4 sources) Hyperlipidemia, unspecified; Translations: [Hyperlipidemia] Onset: 04-25-2018 07-22-2022 Chronic Essential hypertension (6 sources) Essential (primary) hypertension; Translations: [Essential hypertension] Onset: 03-20-2018 Chronic Fluid and electrolyte disorders (1 source) Acidosis; Translations: [ACIDOSIS] Onset: 03-20-2018 Episodic Headache; including migraine (2 sources) Headache 12-28-2022 Episodic Mood disorders (3 sources) Depressive disorder 07-22-2022 Chronic Noninfectious gastroenteritis (1 source) Noninfective gastroenteritis and colitis, unspecified; Translations: [NONINFECTIVE GASTROENTERITIS AND COLITIS, UNSPECIFIED] Onset: 03-20-2018 Episodic Nonspecific chest pain (5 sources) Chest pain, unspecified; Translations: [Other chest pain] Onset: 09-10-2021 Episodic Other aftercare (2 sources) jail (current) use of aspirin; Translations: [SENIOR CARE (CURRENT) USE OF ASPIRIN] Onset: 03-20-2018 Episodic Other aftercare (1 source) Other nursing home (current) drug therapy; Translations: [OTH MUTUAL FUND MANAGER CURRENT DRUG THERAPY] Onset: 07-29-2022 Episodic Other aftercare (1 source) computer terminal operator (current) use of insulin; Translations: [SENIOR CARE CURRENT USE OF INSULIN] Onset: 07-29-2022 Episodic Other aftercare (1 source) computer terminal operator (current) use of oral hypoglycemic drugs; Translations: [MUTUAL FUND MANAGER (CURRENT) USE OF ORAL HYPOGLYCEMIC DRUGS] Onset: 04-25-2018 Other ear and sense organ disorders (3 sources) Hearing loss 07-22-2022 Chronic Other ear and sense organ disorders (2 sources) Sensorineural hearing loss, bilateral; Translations: [Sensorineural hearing loss, bilateral] 04-21-2023 Chronic Other fractures (1 source) Multiple fractures of ribs, left side, subsequent encounter for fracture with routine healing; Translations: [MULTIPLE FX OF RIBS, LEFT SIDE, SUBS FOR FX W ROUTN HEAL] Onset: 03-20-2018 Episodic Other hematologic conditions (2 sources) Microcytosis 12-28-2022 Episodic Other lower respiratory disease (1 source) Hypoxemia; Translations: [HYPOXEMIA] Onset: 04-25-2018 Episodic Other nervous system disorders (3 sources) Polyneuropathy 07-22-2022 Chronic Other nutritional; endocrine; and metabolic disorders (3 sources) Body mass index 30+ - obesity 07-31-2022 Chronic Pneumonia (except that caused by tuberculosis or sexually transmitted disease) (1 source) Pneumonia, unspecified organism; Translations: [PNEUMONIA, UNSPECIFIED ORGANISM] Onset: 03-20-2018 Episodic Residual codes; unclassified (1 source) Obstructive sleep apnea (adult) (pediatric); Translations: [OBSTRUCTIVE SLEEP APNEA (ADULT) (PEDIATRIC)] Onset: 04-25-2018 Chronic Residual codes; unclassified (3 sources) Obstructive sleep apnea syndrome 07-22-2022 Chronic Residual codes; unclassified (1 source) Acquired absence of other specified parts of digestive tract; Translations: [ACQUIRED ABSENCE OF OTHER SPECIFIED PARTS OF DIGESTIVE TRACT] Onset: 04-25-2018 Episodic Residual codes; unclassified (1 source) Acquired absence of both cervix and uterus; Translations: [ACQUIRED ABSENCE OF BOTH CERVIX AND UTERUS] Onset: 04-25-2018 Episodic Residual codes; unclassified (1 source) Family history of ischemic heart disease and other diseases of the circulatory system; Translations: [FAMILY HX OF ISCHEM HEART DIS AND OTH DIS OF THE CIRC SYS] Onset: 04-25-2018 Episodic Residual codes; unclassified (3 sources) Family history of cancer of colon 07-31-2022 Episodic Retinal detachments; defects; vascular occlusion; and retinopathy (3 sources) 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 Septicemia (except in labor) (1 source) Sepsis Onset: 03-20-2018 Episodic Septicemia (except in labor) (3 sources) Sepsis, unspecified organism; Translations: [SEPSIS, UNSPECIFIED ORGANISM] Onset: 03-20-2018 Spondylosis; intervertebral disc disorders; other back problems (3 sources) Backache 12-14-2022 Episodic Substance-related disorders (6 sources) Nicotine dependence, cigarettes, uncomplicated; Translations: [Smoker] Onset: 04-25-2018 07-22-2022 Chronic Unclassified (3 sources) Patient encounter status 07-31-2022 Unclassified (2 sources) Long-term current use of insulin 12-24-2022 Comment on above: Current Medication L ist includes Lantus. added per outpatient CDI policy. Past or Other Problems Problem Classification Problem Date Documented Da te Episodic/Chronic Other screening for suspected conditions (not mental disorders or infectious disease) (1 source) Encounter for screening mammogram for malignant neoplasm of breast; Translations: [ENC SCR MAMMO MALIG NEOPLASM BREAST] Onset: 10-16-2021 Episodic Residual codes; unclassified (1 source) Family history of malignant neoplasm of breast; Translations: [FAMILY HX MALIG NEOPLASM OF BREAST] Onset: 10-16-2021 Episodic Residual codes; unclassified (1 source) Family history of malignant neoplasm of digestive organs; Translations: [FAM HX MALIG NEOPLASM DIGESTIV ORGN] Onset: 10-16-2021 Episodic Results Test Name Value Interpretation Reference Range Facil ity .Interpretation:on 4 HCV Ab IA Ql Comment Invalid Interpretation Code [facility] Comment on above: Result Comment: Not infected with HCV unless early or acute infection is suspected (which may be delayed in an immunocompromised individual), or other evidence exists to indicate HCV infection. Performed at: [facility] [id number] PhD Momarciakeenan Meyers Performed By: #### 2 [id number] ####[facility] [id number] [place] [address] HCV Antibody RFX to Quant PC Ian 05-07-2023 HCV IgG IA Ql Non-Reactive Invalid Interpretation Code Non Reactive [facility] Comment on above: Result Comment: Perf ormed at: [facility] [address] [place], [place] [id number] PhD Ana Meyers Performed By: #### 2 [id number] ####[facility] [id number] [place] [address] Family Medicine Office/Clini c Noteon 05-06-2023 Family Medicine Office/Clinic Note Chief Complaint Subsequent Medicare Wellness Visit Review of Systems PHQ Score Initial Depression Screen Score: 2 SCORE Physical Exam Vitals & Measurements HR: 77(Peripheral) BP: 142/90 SpO2: 97% HT: 160 cm HT: 63 in WT: 87.1 kg WT: 191.62 lb BMI: 34.02 Assessment/Plan 1. Annual visit for general adult medical examination with abnormal findings (Z00.01: Encounter for general adult medical examination with abnormal findings) The patient was given a customized and personalized print out of all the current AHRQ USPSTF?s recommendations for preventative services and all current CDC recommended immunizations, relevant risk recommendations and the following patient brochures were given. Reviewed Medicare preventative services checklist. CDC-Falls Prevention and home safety screening reviewed. Patient denies any falls in last 12 months, voices no worry about falling, exhibits no problems with sitting and standing. Pt voices understanding with keeping walk way area free of clutter to prevent tripping and/or falling. [place] Advance Directives reviewed, forms provided to patient. Patient denies any problems with ADL?s and Instrumental ADL?s. Cognitive screening completed with memory and clock face drawing. Immunization Record reviewed with the patient. COVID vaccines have been administered, immunization record is up to date. Allergies and medications reviewed and up to date. Patient denies concerns with taking medication as prescribed, reviewed OTC medications with patient, medication list up to date. Blood tests were reviewed: Discussed what tests need to be updated. Labs were ordered, will have completed prior to next PCP visit. Will have labs completed with [facility]. Colonoscopy up to date, due for repeat 08/27/2027. DEXA scan ordered. Mammogram up to date, 02/11/2023. Reviewed concerns with bladder control over past 6 months with no concerns. Reviewed pain symptoms with patient: patient denies pain symptoms Reviewed all outside providers that patient follows. Last visit summary notes available in chart and/or have been requested. Follow up scheduled, 07/05/2023 AWV has been scheduled, 05/05/2024 Abnormal findings with elevated BP, serial assessment completed and documented. Patient has POV 07/05/2023 instructed patient to monitor BP and bring log to POV. Educated patient on how to properly check BP. DASH diet reviewed, handout provided. HTN stoplight reviewed with BP goal to be <140/90. Reviewed different factors that can alter blood pressure readings. Education handout provided with s/s to monitor for and report to provider. 2. Other problems related to lifestyle (Z72.89: Other problems related to lifestyle) Information provided and discussed with CDC recommendation that everyone born from [birth year]30-5317 get tested for Hepatitis C. This is also referred to as baby boomers and are 5 times more likely to be at risk. Transmission of Hepatitis C was at its highest. Medicare does cover a once in a lifetime testing if a patient is non-symptomatic. Blood work has been ordered, will review results with PCP. 3. Ovarian failure (E28.39: Other primary ovarian failure) Reviewed recommended bone mineral density testing for women who are 65 years of age or older. Educational handout for Bone Health reviewed and provided to the patient during today's Medicare Wellness visit. Medicare recommends testing every 5 years if results are WNL and every 2 years if results shows low bone mass. This is a deterioration of bone structure and can increase the risk of a fracture with falls. Eating a well-balanced diet with plenty of Calcium and Vitamin D will help to protect your bones. Daily weight-bearing physical activity can help build strong bones, improve bone amounts, and may reduce the risk of weakening of bones (Osteoporosis) later in life. Dexa scan ordered, faxed to [facility]. 4. Coronary artery disease (I25.10: Atherosclerotic heart disease of ham[place] coronary artery without angina pectoris) Patient follows up with Disciplinary Hearing Officer, Dr. Mcintosh every 12 months. Last visit summary notes are available in chart and have been reviewed. Denies concerns with SOB, chest pain or tightness. Taking medications daily as directed. Reviewed Cardiac nutritional recommendations with handout provided. Patient voices understanding with signs and symptoms to monitor for and report to provider. 5. Depression (F32.A: Depression, unspecified) Patient taking Cymbalta daily, voices medication is effective. Follows up with PCP with medication management and symptom control. PHQ-9 risk assessment completed with negative findings. Total risk score 2. Patient denies any suicidal ideations at this time. Reviewed additional signs/symptoms to monitor for and report to provider. 6. Hearing loss (H91.90: Unspecified hearing loss, unspecified ear) Patient wears hearing aids, states effective. Follows with [facility]. 7. Type 2 diabetes mellitus with hyperlipidemia (E11.69: Type 2 diabetes mellitus (more content not included)... [facility] Comment on above: Result Comment: Elec tronically Signed By: Ivett Byrnes\.br\Date and Time Signed: 05/06/23 10:34 EST\.br\Electronically Co-Signed By: Asad Son\.br\Date and Time Co-Signed: 05/05/23 14:21 EST Physician Referralon 024 Physician Referral [id number]. 00TIFF [facility] Screenson 05-06-2023 Screens [id number] 20 [id number] 0TIFF [facility] Ambulatory Visit Summaryon 0 05-05-2023 Ambulatory Visit Summary PATO CORRAL :1960 Visit Date:05/05/2023 Ambulatory Visit Instructions Your Diagnosis Annual visit for general adult medical examination with abnormal findings Other problems related to lifestyle Ovarian failure Coronary artery disease Depression Hearing loss Type 2 diabetes mellitus with hyperlipidemia Class 1 obesity due to excess calories in adult BMI 34.0-34.9,adult Tests Performed BD Bone Density DEXA -- Results Pending -- Please visit your patient portal for your results or contact your primary care physician. Your Care Team Attending Physician - Dandre Burger MD. Primary Care Physician - Dandre Burger MD This Is Your Medications List amlodipine (amLODIPine 5 mg Tab) aspirin (aspirin 81 mg Oral EC Tab) atorvastatin (atorvastatin 80 mg Tab) buPROPion (Wellbutrin SR 150 mg Tab-ER) carvedilol (carvedilol 25 mg Tab) docusate (Colace 100 mg Cap) dulaglutide (Trulicity Pen 1.5 mg/0.5 mL subcutaneous solution) duloxetine (duloxetine 60 mg Cap-DR) gabapentin (gabapentin 400 mg Cap) glimepiride (Amaryl 4 mg Tab) insulin glargine (Lantus 100 units/mL Injection-Insulin) isosorbide mononitrate (isosorbide mononitrate 30 mg ER Tab) levothyroxine (levothyroxine 88 mcg (0.088 mg) Tab) metformin-sitagliptin (Janumet 50 mg/1000 mg oral tablet) multivitamin (Multi Vitamins oral tablet) Procedures Performed Colonoscopy (05/04/2016), CABG x 4 - Coronary artery bypass grafts x 4, Carpal tunnel release, section, section, section, Cholecystectomy, Excision of lipoma of back, Vaginal total hysterectomy. Discharge Vitals Heart Rate (Peripheral) 77 Blood Pressure 142/90 Height 63 in Height 160 cm Weight 191.62 lb Weight 87.1 kg BMI 34.02 What to do next Scheduled Follow-Up Appointments Wednesday 9:15 AM EDT With: Dandre Burger MD Where: [facility] Invalid Interpretation Code [address] [place] [address]- \.br\ Someone Will Contact You Regarding These Appointments\.br \ [facility] External Ambulatory Referral, Patient choice/referral by family/friend, Diabetic Education, patient wants to complete at [facility], 05/05/23 12:35:00 EST, Type 2 diabetes mellitus with hyperlipidemia [facility] Ambulatory Visit Summary ELLISPATO :1960 Visit Date:05/05/2023 Ambulatory Visit Instructions Your Diagnosis Annual visit for general adult medical examination with abnormal findings Other problems related to lifestyle Ovarian failure Coronary artery disease Depression Hearing loss Type 2 diabetes mellitus with hyperlipidemia Class 1 obesity due to excess calories in adult BMI 34.0-34.9,adult Your Care Team Attending Physician - Dandre Burger MD Primary Care Physician - aDndre Burger MD This Is Your Medications List amlodipine (amLODIPine 5 mg Tab) aspirin (aspirin 81 mg Oral EC Tab) atorvastatin (atorvastatin 80 mg Tab) buPROPion (Wellbutrin SR 150 mg Tab-ER) carvedilol (carvedilol 25 mg Tab) docusate (Colace 100 mg Cap) dulaglutide (Trulicity Pen 1.5 mg/0.5 mL subcutaneous solution) duloxetine (duloxetine 60 mg Cap-DR) gabapentin (gabapentin 400 mg Cap) glimepiride (Amaryl 4 mg Tab) insulin glargine (Lantus 100 units/mL Injection-Insulin) isosorbide mononitrate (isosorbide mononitrate 30 mg ER Tab) levothyroxine (levothyroxine 88 mcg (0.088 mg) Tab) metformin-sitagliptin (Janumet 50 mg/1000 mg oral tablet) multivitamin (Multi Vitamins oral tablet) Procedures Performed Colonoscopy (05/04/2016), CABG x 4 - Coronary artery bypass grafts x 4, Carpal tunnel release, section, section, section, Cholecystectomy, Excision of lipoma of back, Vaginal total hysterectomy. What to do next Scheduled Follow-Up Appointments Wednesday 9:15 AM EDT With: Dandre Burger MD Where: [facility] Patient Educationon 05-05-19 Patient Education Caregiving Fall Prevention in the Home, Adult Falls can cause injuries and affect people of all ages. There are many simple things that you can do to make your home safe and to help prevent falls. Ask for help when making these changes, if needed. What actions can I take to prevent falls? General instructions ? Use good lighting in all rooms. Replace any light bulbs that burn out, turn on lights if it is dark, and use night-lights. ? Place frequently used items in [id number] places. Lower the shelves around your home if necessary. ? Set up furniture so that there are clear paths around it. Avoid moving your furniture around. ? Remove throw rugs and other tripping hazards from the floor. ? Avoid walking on wet floors. ? Fix any uneven floor surfaces. ? Add color or contrast paint or tape to grab bars and handrails in your home. Place contrasting color strips on the first and last steps of staircases. ? When you use a stepladder, make sure that it is completely opened and that the sides and supports are firmly locked. Have someone hold the ladder while you are using it. Do not climb a closed stepladder. ? Know where your pets are when moving through your home. What can I do in the bathroom? ? Keep the floor dry. Immediately clean up any water that is on the floor. ? Remove soap buildup in the tub or shower regularly. ? Use nonskid mats or decals on the floor of the tub or shower. ? Attach bath mats securely with double-sided, nonslip rug tape. ? If you need to sit down while you are in the shower, use a plastic, nonslip stool. ? Install grab bars by the toilet and in the tub and shower. Do not use towel bars as grab bars. What can I do in the bedroom? ? Make sure that a bedside light is easy to reach. ? Do not use oversized bedding that reaches the floor. ? Have a firm chair that has side arms to use for getting dressed. What can I do in the kitchen? ? Clean up any spills right away. ? If you need to reach for something above you, use a sturdy step stool that has a grab bar. ? Keep electrical cables out of the way. ? Do not use floor albanian or wax that makes floors slippery. If you must use wax, make sure that it is non-skid floor wax. What can I do with my stairs? ? Do not leave any items on the stairs. ? Make sure that you have a light switch at the top and the bottom of the stairs. Have them installed if you do not have them. ? Make sure that there are handrails on both sides of the stairs. Fix handrails that are broken or loose. Make sure that handrails are as long as the staircases. ? Install non-slip stair treads on all stairs in your home. ? Avoid having throw rugs at the top or bottom of stairs, or secure the rugs with carpet tape to prevent them from moving. ? Choose a carpet design that does not hide the edge of steps on the stairs. ? Check any carpeting to make sure that it is firmly attached to the stairs. Fix any carpet that is loose or worn. What can I do on the outside of my home? ? Use bright outdoor lighting. ? Regularly repair the edges of walkways and driveways and fix any cracks. ? Remove high doorway thresholds. ? Trim any shrubbery on the main path into your home. ? Regularly check that handrails are securely fastened and in good repair. Both sides of all steps should have handrails. ? Install guardrails along the edges of any raised decks or porches. ? Clear walkways of debris and clutter, including tools and rocks. ? Have leaves, snow, and ice cleared regularly. ? Use sand or salt on walkways during winter months. ? In the garage, clean up any spills right away, including grease or oil spills. What other actions can I take? ? Wear closed-toe shoes that fit well and support your feet. Wear shoes that have rubber soles or low heels. ? Use mobility aids as needed, such as canes, walkers, scooters, and crutches. ? Review your medicines with your health care provider. Some medicines can cause dizziness or changes in blood pressure, which increase your risk of falling. Talk with your health care provider about other ways that you can decrease your risk of falls. This may include working with a physical therapist or process trainer to improve your strength, balance, and endurance. Where to find more information ? Centers for Disease Control and Prevention, [place]: www.cdc.gov ? National [place] on Aging: www.jeison.nih.gov Contact a health care provider if: ? You are afraid of falling at home. ? You feel weak, drowsy, or dizzy at home. ? You fall at home. Summary ? There are many simple things that you can do to make your home safe and to help prevent falls. ? Ways to make your home safe include removing tripping hazards and installing grab bars in the bathroom. ? Ask for help when making these changes in your home. This information is not intended to replace advice given to you by your health ca (more content not included)... [facility] Physician Orderon 04-19-2023 Physician Order [id number]#[id number] 0TIFF [facility] Pre-Certification Formon Pre-Certification Form [id number] 0TIFF [facility] Ambulatory Visit Summaryon 0 04-05-2023 Ambulatory Visit Summary PATO CORRLA :1960 Visit Date:04/05/2023 Ambulatory Visit Instructions Your Diagnosis Type 2 diabetes mellitus with hyperlipidemia Chronic obstructive pulmonary disease Long-term insulin use Hyperlipidemia, unspecified BMI 35.0-35.9,adult Class 1 obesity due to excess calories in adult Smoker Back pain Depression Cigarette nicotine dependence Your Care Team Attending Physician - Dandre Burger MD Primary Care Physician - Dandre Burger MD. This Is Your Medications List amlodipine (amLODIPine 5 mg Tab) aspirin (aspirin 81 mg Oral EC Tab) atorvastatin (atorvastatin 80 mg Tab) buPROPion (Wellbutrin SR 150 mg Tab-ER) carvedilol (carvedilol 25 mg Tab) docusate (Colace 100 mg Cap) dulaglutide (Trulicity Pen 0.75 mg/0.5 mL subcutaneous solution) duloxetine (duloxetine 60 mg Cap-DR) gabapentin (gabapentin 400 mg Cap) glimepiride (Amaryl 4 mg Tab) insulin glargine (Lantus 100 units/mL Injection-Insulin) isosorbide mononitrate (isosorbide mononitrate 30 mg ER Tab) metformin-sitagliptin (Janumet 50 mg/1000 mg oral tablet) multivitamin (Multi Vitamins oral tablet) Procedures Performed Colonoscopy (05/04/2016), CABG x 4 - Coronary artery bypass grafts x 4, Carpal tunnel release, section, section, section, Cholecystectomy, Excision of lipoma of back, Vaginal total hysterectomy. Discharge Vitals Temperature (Temporal Artery) 36.6 ?C Heart Rate (Peripheral) 74 Respiratory Rate 16 Blood Pressure 138/82 Height 157.5 cm Height 62 in Weight 88.1 kg Weight 193.82 lb BMI 35.52 What to do next Scheduled Follow-Up Appointments Wednesday 11:00 AM EST With: Where: [facility] Normal [address] [id number]- \.br\ You Need to Complete the Following\.br\ CT Chest, Low Dose Screening, 04/05/23, Routine, Order for future visit, Transport Mode: Ambulatory, Reason: Screening, Yes, Yes, Yes, 1, 30, Yes, 0, [id number], No, Cigarette nicotine dependence, pp_set_radiology _subspecialty, Not Required, [facility]\.br\ Medications\.br\ What How Much When Instructions\.br \ Unchanged amlodipine (amLODIPine 5 mg Tab) 1 Tablets By Mouth Every day\.br\ Unchanged aspirin (aspirin 81 mg Oral EC Tab) 1 Tablets By Mouth Every day\.br\ Unchanged atorvastatin (atorvastatin 80 mg Tab) 1 Tablets By Mouth Every day\.br\ Unchanged buPROPion (Wellbutrin SR 150 mg Tab-ER) 1 Tablets By Mouth Every day\.br\ Unchanged carvedilol (carvedilol 25 mg Tab) 1 Tablets By Mouth 2 times a day\.br\ Unchanged docusate (Colace 100 mg Cap) 1 Capsules By Mouth Every day as needed for for constipation\.br \ Unchanged dulaglutide (Trulicity Pen 0.75 mg/ 0.5 mL subcutaneous solution) See instructions inject 0.75 milligrams subcutaneously every week \.br\ Unchanged duloxetine (duloxetine 60 mg Cap-DR) 1 Capsules By Mouth Every day\.br\ Unchanged gabapentin (gabapentin 400 mg Cap) 1 Capsules By Mouth 3 times a day\.br\ Unchanged glimepiride (Amaryl 4 mg Tab) 1 Tablets By Mouth 2 times a day\.br\ Unchanged insulin glargine (Lantus 100 units/ mL Injection-Insuli n) See instructions 30 unit(s) SubCutaneous BID \.br\ Unchanged isosorbide mononitrate (isosorbide mononitrate 30 mg ER Tab) 1 Tablets By Mouth Every day\.br\ Unchanged metformin-sitagl iptin (Janumet 50 mg/ 1000 mg oral tablet) 1 Tablets By Mouth 2 times a day\.br\ Unchanged multivitamin (Multi Vitamins oral tablet) 1 Tablets By Mouth Every day\.br\ Allergies\.br\ No Known Medication Allergies\.br\ Problems\.br\ Ongoing - Any problem that you are currently receiving treatment for.\.br\ Back pain\.br\ BMI 36.0-36.9,adult\ .br\ Chronic obstructive pulmonary disease\.br\ Cigarette nicotine dependence\.br\ CKD (chronic kidney disease)\.br\ Coronary artery disease\.br\ Depression\.br\ Diabetic nephropathy\.br\ Essential hypertension\.br \ Family history of colon cancer\.br\ CHRISTENSEN (headache)\.br\ Hearing loss\.br\ Hyperlipidemia\. br\ Long-term insulin use\.br\ Microcytosis\.br \ KELLY (obstructive sleep apnea)\.br\ Polyneuropathy\. br\ Retinopathy\.br\ S/P CABG x 3\.br\ Screening for malignant neoplasm of colon\.br\ Smoker\.br\ Type 2 diabetes mellitus with hyperlipidemia\. br\ Patient Survey\.br\ You may receive a survey via text or e-mail asking about your office visit. Please share your experience with us by completing your survey. We appreciate your feedback and thank you for choosing us for your care.\.br\ Education Materials\.br\ BMI for Adults\.br\ What is BMI?\.br\ Body mass index (BMI) is a number that is calculated from a person's weight and height. BMI can help estimate how much of a person's weight is composed of fat. BMI does not measure body fat directly. Rather, it is an alternative to procedures that directly measure body fat, which can be difficult and expensive.\.br\ BMI can help identify people who may be at higher risk for certain medical problems.\.br\ What are BMI measurements used for?\.br\ BMI is used as a screening tool to identify possible weight problems. It helps determine whether a person is obese, overweight, a healthy weight, or underweight.\.br \ BMI is useful for:\.br\ ? \.br\ Identifying a weight problem that may be related to a medical condition or may increase the risk for medical problems.\.br\ ? \.br\ Promoting changes, such as changes in diet and exercise, to help reach a healthy weight. BMI screening can be repeated to see if these changes are working.\.br\ How is BMI calculated?\.br\ BMI involves measuring your weight in relation to your height. Both height and weight are measured, and the BMI is calculated from those numbers. This can be done either in Maltese ([place] or metric measurements. Note that charts and online BMI calculators are available to help you find your BMI quickly and easily without having to do these calculations yourself.\.br\ To calculate your BMI in Maltese ([place] measurements:\.b r\ \.br\ 1. \.br\ Measure your weight in pounds (lb).\.br\ 2. \.br\ Multiply the number of pounds by 703.\.br\ ? \.br\ For example, for a person who weighs 180 lb, multiply that number by 703, which equals 126,540.\.br\ 3. \.br\ Measure your height in inches. Then multiply that number by itself to get a measurement called inches squared. \.br\ ? \.br\ For example, for a person who is 70 inches tall, the inches squared measurement is 70 inches x 70 inches, which equals 4,900 inches squared.\.br\ 4. \.br\ Divide the total from step 2 (number of lb x 703) by the total from step 3 (inches squared): 126,540 ? 4,900 = 25.8. This is your BMI.\.br\ To calculate your BMI in metric measurements:\.b r\ 1. \.br\ Measure your weight in kilograms (kg).\.br\ 2. \.br\ Measure your height in meters (m). Then multiply that number by itself to get a measurement called meters squared. \.br\ ? \.br\ For example, for a person who is 1.75 m tall, the meters squared measurement is 1.75 m x 1.75 m, which is equal to 3.1 meters squared.\.br\ 3. \.br\ Divide the number of kilograms (your weight) by the meters squared number. In this example: 70 ? 3.1 = 22.6. This is your BMI.\.br\ What do the results mean?\.br\ BMI charts are used to identify whether you are underweight, normal weight, overweight, or obese. The following guidelines will be used:\.br\ ? \.br\ Underweight: BMI less than 18.5.\.br\ ? \.br\ Normal weight: BMI between 18.5 and 24.9.\.br\ ? \.br\ Overweight: BMI between 25 and 29.9.\.br\ ? \.br\ Obese: BMI of 30 or above.\.br\ Keep these notes in mind:\.br\ ? \.br\ Weight includes both fat and muscle, so someone with a muscular build, such as an athlete, may have a BMI that is higher than 24.9. In cases like these, BMI is not an accurate measure of body fat.\.br\ ? \.br\ To determine if excess body fat is the cause of a BMI of 25 or higher, further assessments may need to be done by a health care provider.\.br\ ? \.br\ BMI is usually interpreted in the same way for men and women.\.br\ Where to find more information\.br\ For more information about BMI, including tools to quickly calculate your BMI, go to these websites:\.br\ ? \.br\ Centers for Disease Control and Prevention: www.cdc.gov\.br\ ? \.br\ [place] [employer] Association: www.heart.org\.b r\ ? \.br\ National Heart, Lung, and Blood [place]: www.nhlbi.nih.go v\.br\ Summary\.br\ ? \.br\ Body mass index (BMI) is a number that is calculated from a person's weight and height.\.br\ ? \.br\ BMI may help estimate how much of a person's weight is composed of fat. BMI can help identify those who may be at higher risk for certain medical problems.\.br\ ? \.br\ BMI can be measured using Maltese measurements or metric measurements.\.b r\ ? \.br\ BMI charts are used to identify whether you are underweight, normal weight, overweight, or obese.\.br\ This information is not intended to replace advice given to you by your health care provider. Make sure you discuss any questions you have with your health care provider.\.br\ Document Revised: 11/22/2019 Document Reviewed: 09/29/2019 [employer] Patient Education ? 2022 [employer].br\ \.br\ [facility] CHEMISTRYOrdered By: Marcos Tse on 04-05-2023 HbA1c (Bld) [Mass fraction] 7.2 % High <=5.9% [facility] [employer] Family Medicine Office/Clini c Noteon 04-05-2023 Family Medicine Office/Clinic Note HPI Staff Pato is a 62 year old female presenting for 3 month follow up dm Do you have any of the following symptoms? Foot Exam: never Eye Exam: due, took her eye dr away from her due to insurance Last A1C: Hgb A1C %: 9 % High (12/14/22 07:42:00) Statin: atorvastatin 80mg flu: UTD 12/28/22 questions/concerns: none History of Present Illness The patient presents for evaluation of multiple medical concerns. Her blood sugars have been fluctuating. It was 129 this morning. It was 98 when she got up. It always goes up after her shower. Her blood sugars were 129, 98, 99, 120, 147, 154, 109, 124, 188, 72, 74, and 68. Her blood sugar will go up to 204. It depends on what she eats. Her blood sugars are usually low when she falls asleep in the chair during the day. She is on Trulicity. Her COPD is doing fine. She is not sure if she has it. She has no concerns with her depression. She deals with it along with her mother. Her mother is the source of her food problems. She is still smoking 6 to 8 cigarettes a day. She has been smoking for over 30 years. She has not had her lung cancer screening yet. Review of Systems PHQ Score Initial Depression Screen Score: 0 SCORE Physical Exam Vitals & Measurements T: 36.6 ?C(Temporal Artery) HR: 74(Peripheral) RR: 16 BP: 138/82 SpO2: 98% HT: 62 in HT: 157.5 cm WT: 88.1 kg WT: 193.82 lb BMI: 35.52 General: alert, no acute distress, Morbidly Obese ENMT: oral mucosa moist, Cardiovascular: regular rate and rhythm, normal peripheral perfusion Respiratory: Lungs CTA, respirations non labored Extremities: no deformity, no trauma Neurological: oriented x 4, LOC appropriate for age, CN II-XII intact, motor strength equal & normal bilaterally, speech normal Abdomen: Soft, Nontender, Non-distended, + Bs Assessment/Plan 1. Type 2 diabetes mellitus with hyperlipidemia (E11.69: Type 2 diabetes mellitus with other specified complication) - Will increase the trulicity. - Will check A1c today. - Follow up in 3 months Ordered: Body Mass Index (BMI) documented 3008F Current tobacco smoker 1034F Depression Screening Negative 3352F HgbA1c Influenza immunization administered or previously received 4274F Most recent diastolic blood pressure 80-89 mm Hg 3079F Systolic BP 130-139 mm Hg (Most Recent) 3075F 2. Chronic obstructive pulmonary disease (J44.9: Chronic obstructive pulmonary disease, unspecified) - Stable - No issues at all Ordered: Body Mass Index (BMI) documented 3008F Current tobacco smoker 1034F Depression Screening Negative 3352F HgbA1c Influenza immunization administered or previously received 4274F Most recent diastolic blood pressure 80-89 mm Hg 3079F Systolic BP 130-139 mm Hg (Most Recent) 3075F 3. Long-term insulin use (Z79.4: jail (current) use of insulin) - As per number 1 Ordered: Body Mass Index (BMI) documented 3008F Current tobacco smoker 1034F Depression Screening Negative 3352F HgbA1c Influenza immunization administered or previously received 4274F Most recent diastolic blood pressure 80-89 mm Hg 3079F Systolic BP 130-139 mm Hg (Most Recent) 3075F 4. Hyperlipidemia, unspecified (E78.5: Hyperlipidemia, unspecified) - Continue on a statin Ordered: Body Mass Index (BMI) documented 3008F Current tobacco smoker 1034F Depression Screening Negative 3352F HgbA1c Influenza immunization administered or previously received 4274F Most recent diastolic blood pressure 80-89 mm Hg 3079F Systolic BP 130-139 mm Hg (Most Recent) 3075F 5. BMI 35.0-35.9,adult (Z68.35: Body mass index [BMI] 35.0-35.9, adult) - BMI education given Ordered: Body Mass Index (BMI) documented 3008F Current tobacco smoker 1034F Depression Screening Negative 3352F HgbA1c Influenza immunization administered or previously received 4274F Most recent diastolic blood pressure 80-89 mm Hg 3079F Systolic BP 130-139 mm Hg (Most Recent) 3075F 6. Class 1 obesity due to excess calories in adult (E66.09: Other obesity due to excess calories) - Diet and exercise advised Ordered: Body Mass Index (BMI) documented 3008F Current tobacco smoker 1034F Depression Screening Negative 3352F HgbA1c Influenza immunization administered or previously received 4274F Most recent diastolic blood pressure 80-89 mm Hg 3079F Systolic BP 130-139 mm Hg (Most Recent) 3075F 7. Smoker (F17.200: Nicotine dependence, unspecified, uncomplicated) - Please stop smoking. - If you need help, please let us know. Ordered: Body Mass Index (BMI) documented 3008F Current tobacco smoker 1034F Depression Screening Negative 3352F HgbA1c Influenza immunization administered or previously received 4274F Most recent diastolic blood pressure 80-89 mm Hg 3079F Systolic BP 130-139 mm Hg (Most Recent) 3075F 8. Back pain (M54.9: Dorsalgia, unspecified) - Will refill the gabapentin Ordered: HgbA1c 9. Depression (F32.A: Depression, unspecified) - C (more content not included)... Normal [facility] Comment on above: Result Comment: Elec tronically Signed By: Tao GTZ, Dandre Taylor\.br\Date and Time Signed: 04/05/23 07:22 EST [id number] 04-05-2023 HbA1c (Bld) [Mass fraction] 7.2 % High <=5.9 [facility] Comment on above: Performed By: #### [id number] ####[facility] [id number] [place] [address] Insurance Correspondenceon 0 04-05-2023 Insurance Correspondence [id number] 0TIFF Normal [facility] Patient Educationon 04-05-19 Patient Education Nutrition BMI for Adults What is BMI? Body mass index (BMI) is a number that is calculated from a person's weight and height. BMI can help estimate how much of a person's weight is composed of fat. BMI does not measure body fat directly. Rather, it is an alternative to procedures that directly measure body fat, which can be difficult and expensive. BMI can help identify people who may be at higher risk for certain medical problems. What are BMI measurements used for? BMI is used as a screening tool to identify possible weight problems. It helps determine whether a person is obese, overweight, a healthy weight, or underweight. BMI is useful for: ? Identifying a weight problem that may be related to a medical condition or may increase the risk for medical problems. ? Promoting changes, such as changes in diet and exercise, to help reach a healthy weight. BMI screening can be repeated to see if these changes are working. How is BMI calculated? BMI involves measuring your weight in relation to your height. Both height and weight are measured, and the BMI is calculated from those numbers. This can be done either in [place]ese ([place] or metric measurements. Note that charts and online BMI calculators are available to help you find your BMI quickly and easily without having to do these calculations yourself. To calculate your BMI in M[place]ese ([place] measurements: 1. Measure your weight in pounds (lb). 2. Multiply the number of pounds by 703. ? For example, for a person who weighs 180 lb, multiply that number by 703, which equals 126,540. 3. Measure your height in inches. Then multiply that number by itself to get a measurement called inches squared. ? For example, for a person who is 70 inches tall, the inches squared measurement is 70 inches x 70 inches, which equals 4,900 inches squared. 4. Divide the total from step 2 (number of lb x 703) by the total from step 3 (inches squared): 126,540 ? 4,900 = 25.8. This is your BMI. To calculate your BMI in metric measurements: 1. Measure your weight in kilograms (kg). 2. Measure your height in meters (m). Then multiply that number by itself to get a measurement called meters squared. ? For example, for a person who is 1.75 m tall, the meters squared measurement is 1.75 m x 1.75 m, which is equal to 3.1 meters squared. 3. Divide the number of kilograms (your weight) by the meters squared number. In this example: 70 ? 3.1 = 22.6. This is your BMI. What do the results mean? BMI charts are used to identify whether you are underweight, normal weight, overweight, or obese. The following guidelines will be used: ? Underweight: BMI less than 18.5. ? Normal weight: BMI between 18.5 and 24.9. ? Overweight: BMI between 25 and 29.9. ? Obese: BMI of 30 or above. Keep these notes in mind: ? Weight includes both fat and muscle, so someone with a muscular build, such as an athlete, may have a BMI that is higher than 24.9. In cases like these, BMI is not an accurate measure of body fat. ? To determine if excess body fat is the cause of a BMI of 25 or higher, further assessments may need to be done by a health care provider. ? BMI is usually interpreted in the same way for men and women. Where to find more information For more information about BMI, including tools to quickly calculate your BMI, go to these websites: ? Centers for Disease Control and Prevention: www.cdc.gov ? [place] [employer]: www.heart.org ? National Heart, Lung, and Blood [place]: www.nhlbi.nih.gov Summary ? Body mass index (BMI) is a number that is calculated from a person's weight and height. ? BMI may help estimate how much of a person's weight is composed of fat. BMI can help identify those who may be at higher risk for certain medical problems. ? BMI can be measured using Maltese measurements or metric measurements. ? BMI charts are used to identify whether you are underweight, normal weight, overweight, or obese. This information is not intended to replace advice given to you by your health care provider. Make sure you discuss any questions you have with your health care provider. Document Revised: 11/22/2019 Document Reviewed: 09/29/2019 [employer] Patient Education ? 2022 [employer] [facility] Outside Mammographyon 2022 Outside Mammography [id number]#1.0 0TIFF [facility] Consent for Flu Vaccineon Consent for Flu Vaccine [id number]#1.0 0TIFF Normal [facility] Medication Consenton 023 Medication Consent [id number]#1.0 0TIFF Normal [facility] Transfer Inon 12-29-2022 Transfer In [id number]#1.0 0TIFF Normal [facility] Family Medicine Office/Clini c Noteon 12-28-2022 Family Medicine Office/Clinic Note HPI Staff Pato is a 62 year old female presenting for 2 week follow up labs some abnormal values Recent medrol dosepak for back pain flu: will take today questions/concerns: pain in top right side of head happening every day 5-8 pm same time, takes tylenol sometimes it goes away sometimes it doesn't Needs her gabapentin refilled, first time with you ( previous Dr Lau) have consent ready to sign Urine drug screen all negative History of Present Illness Patient presents for follow-up on lab work. Patient was found to be microcytosis and to have an elevated A1c. Patient brought in her Trulicity today to be shown how to do an injection. Patient's only other concern is a headache that she gets every day. Patient states she has been treating it with NSAIDs. No other concerns today. Physical Exam General: alert, no acute distress ENMT: oral mucosa moist, Cardiovascular: regular rate and rhythm, normal peripheral perfusion Respiratory: Lungs CTA, respirations non labored Extremities: no deformity, no trauma Neurological: oriented x 4, LOC appropriate for age, CN II-XII intact, motor strength equal & normal bilaterally, speech normal Abdomen: Soft, Nontender, Non-distended, + BS Assessment/Plan 1. Back pain (M54.9: Dorsalgia, unspecified) - Will refill the gabapentin - [facility] signed - Oarrs reviewed Ordered: influenza virus vaccine, inactivated, 0.5 mL, Injection, IntraMuscular, Once, Stop date 12/28/22 15:00:00 EDT, Routine, Start date 12/28/22 15:00:00 EDT Drug Screen POC 79257 2. Type 2 diabetes mellitus with hyperlipidemia (E11.69: Type 2 diabetes mellitus with other specified complication) - Start [facility] - Will follow up in 3 months - Precautions discussed in detail. Ordered: influenza virus vaccine, inactivated, 0.5 mL, Injection, IntraMuscular, Once, Stop date 12/28/22 15:00:00 EDT, Routine, Start date 12/28/22 15:00:00 EDT Drug Screen POC 93200 3. Hyperlipidemia (E78.5: Hyperlipidemia, unspecified) - Continue on a statin Ordered: influenza virus vaccine, inactivated, 0.5 mL, Injection, IntraMuscular, Once, Stop date 12/28/22 15:00:00 EDT, Routine, Start date 12/28/22 15:00:00 EDT Drug Screen POC 32517 4. Long-term insulin use (Z79.4: jail (current) use of insulin) - Continue insulin as discussed Ordered: influenza virus vaccine, inactivated, 0.5 mL, Injection, IntraMuscular, Once, Stop date 12/28/22 15:00:00 EDT, Routine, Start date 12/28/22 15:00:00 EDT Drug Screen POC 19445 5. BMI 35.0-35.9,adult (Z68.35: Body mass index [BMI] 35.0-35.9, adult) - BMI education given Ordered: influenza virus vaccine, inactivated, 0.5 mL, Injection, IntraMuscular, Once, Stop date 12/28/22 15:00:00 EDT, Routine, Start date 12/28/22 15:00:00 EDT Drug Screen POC 56571 6. Class 1 obesity due to excess calories in adult (E66.09: Other obesity due to excess calories) - Diet and exercise advised. 7. CHRISTENSEN (headache) (R51.9: Headache, unspecified) - Advised to stop motrin 8. 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 Admin Charge 29101 Follow-up No qualifying data available Problem List/Past Medical History Ongoing Back pain BMI 36.0-36.9,adult Chronic obstructive pulmonary disease CKD (chronic kidney disease) Coronary artery disease Depression Diabetic nephropathy Essential hypertension Family history of colon cancer CHRISTENSEN (headache) Hearing loss Hyperlipidemia Long-term insulin use Microcytosis KELLY (obstructive sleep apnea) Polyneuropathy Retinopathy S/P CABG x 3 Screening for malignant neoplasm of colon Smoker Type 2 diabetes mellitus with hyperlipidemia Historical No qualifying data Procedure/Surgical History Colonoscopy (05/04/2016), CABG x 4 - Coronary artery bypass grafts x 4, Carpal tunnel release, section, section, section, Cholecystectomy, Excision of lipoma of back, Vaginal total hysterectomy. Medications Amaryl 4 mg Tab, 4 mg= 1 tab(s), Oral, BID amLODIPine 5 mg Tab, 5 mg= 1 tab(s), Oral, Daily aspirin 81 mg Oral EC Tab, 81 mg= 1 tab(s), Oral, Daily atorvastatin 80 mg Tab, 80 mg= 1 tab(s), Oral, Daily carvedilol 25 mg Tab, 25 mg= 1 tab(s), Oral, BID Colace 100 mg Cap, 100 mg= 1 cap(s), Oral, Daily, PRN duloxetine 60 mg Cap-DR, 1 cap(s), Oral, Daily gabapentin 400 mg Cap, 400 mg= 1 cap(s), Oral, TID isosorbide mononitrate 30 mg ER Tab, 30 mg= 1 tab(s), Oral, Daily Janumet 50 mg/1000 mg oral tablet, 1 tab(s), Oral, BID Lantus 100 units/mL Injection-Insulin, 27 unit(s), SubCutaneous, BID Multi Vitamins oral tablet, 1 tab(s), Oral, Daily Trulicity Pen 0.75 mg/0.5 mL subcutaneous solution, 0.75 mg, SubCutaneous, qWeek Wellbutrin SR 150 mg Tab-ER, 150 mg= 1 tab(s), Oral, Daily Allergies No Known Medication Allergies Social Hist (more content not included)... Normal [facility] Comment on above: Result Comment: Elec tronically Signed By: Dandre Burger MD\.br\Date and Time Signed: 12/28/22 14:48 EDT Pre-Visit Planningon 023 Pre-Visit Planning - From: Krupa Olivera To: Dandre Burger MD; Sent: 12/24/2022 15:29:10 EDT Subject: Pre-Visit Planning Due Date/Time: 12/24/2022 15:29:00 EDT Caller Name: PATO CORRAL; Caller Number: H , Tx Dr. Burger. During a pre-visit planning chart review, I noted the following documentation in the medical record: Current Problem List: Depression, unspecified. Current Medication List: bupropion and duloxetine. PHQ-9 Score: =15 on 12/14/2022. Based on your medical judgment, can you please clarify which, if any, of the following conditions are present? I can update the Chronic Problem List with your response if you would like. Major Depressive Disorder, Single Episode ? Major depressive disorder, single episode, mild ? Major depressive disorder, single episode, moderate ? Major depressive disorder, single episode, severe without mention of psychotic behavior ? Major depressive disorder, single episode, severe specified as with psychotic behavior ? Major depressive disorder, single episode, in partial remission ? Major depressive disorder, single episode in full remission Major Depressive Disorder, Recurrent ? Major depressive disorder, recurrent, mild ? Major depressive disorder, recurrent, moderate ? Major depressive disorder, recurrent, severe without mention of psychotic behavior ? Major depressive disorder, recurrent, severe specified as with psychotic behavior ? Major depressive disorder, recurrent, in partial remission ? Major depressive disorder, recurrent, in full remission -Other (Please Specify): In responding to this request, please exercise your independent professional judgement. The fact that a question is asked does not imply that any particular answer is desired or expected. If you have any questions, please feel free to contact me at extension [phone]. Thank you! Krupa Olivera LPN From: Tao GTZ, Dandre Taylor To: Krupa Olivera; Sent: 12/28/2022 12:36:30 EDT Subject: RE: Pre-Visit Planning Caller Name: PATO CORRAL; Caller Number: H , Lets see how she is doing today. Normal [address] [place] [address] Ambulatory Visit Summaryon 1 Ambulatory Visit Summary PATO CORRAL :1960 Visit Date:12/14/2022 Ambulatory Visit Instructions Your Diagnosis CKD (chronic kidney disease) Chronic obstructive pulmonary disease Diabetes Essential hypertension Depression BMI 35.0-35.9,adult Class 1 obesity due to excess calories in adult Coronary artery disease S/P CABG x 3 Back pain Smoker Your Care Team Attending Physician - Dandre Burger MD Primary Care Physician - Dandre Burger MD This Is Your Medications List dulaglutide (Trulicity Pen 0.75 mg/0.5 mL subcutaneous solution) methylPREDNISolone (Medrol Dosepack 4 mg Tab) Contact prescribing physician if questions or concerns amlodipine (amLODIPine 5 mg Tab) aspirin (aspirin 81 mg Oral EC Tab) atorvastatin (atorvastatin 80 mg Tab) buPROPion (Wellbutrin SR 150 mg Tab-ER) carvedilol (carvedilol 25 mg Tab) docusate (Colace 100 mg Cap) duloxetine (duloxetine 60 mg Cap-DR) gabapentin (gabapentin 400 mg Cap) glimepiride (Amaryl 4 mg Tab) insulin glargine (Lantus 100 units/mL Injection-Insulin) isosorbide mononitrate (isosorbide mononitrate 30 mg ER Tab) metformin-sitagliptin (Janumet 50 mg/1000 mg oral tablet) multivitamin (Multi Vitamins oral tablet) Procedures Performed Colonoscopy (05/04/2016), CABG x 4 - Coronary artery bypass grafts x 4, Carpal tunnel release, section, section, section, Cholecystectomy, Excision of lipoma of back, Vaginal total hysterectomy. Discharge Vitals Temperature (Oral) 36.5 ?C Heart Rate (Peripheral) 86 Respiratory Rate 14 Blood Pressure 124/72 Height 157.48 cm Height 62 in Weight 88.4 kg Weight 194.48 lb BMI 35.65 What to do next Scheduled Follow-Up Appointments Wednesday 7:40 AM EDT With: Dandre Burger MD Where: [facility] Normal [facility] Auto Diffon 12-14-2022 Basophils/100 WBC (Bld) 0.6 % Normal 0.0-2.0 [facility] Comment on above: Order Comment: Order Added by Discern Expert. Performed By: #### 2 043238, 4159423, 3803000, 72159457, 7952743, 31703182, 085442568 ####[address] [place] [address] Basophils/Leukocyte s Auto (Bld) [Pure # fraction] 0.1 E9/L Normal 0.0-0.2 [facility] Comment on above: Order Comment: Order Added by Discern Expert. Performed By: #### 2 879793, 8609382, 9401116, 74768304, 2918642, 59700733, 049756916 ####[address] [place] [address] Eosinophils/100 WBC (Bld) 3.2 % Normal 0.0-8.0 [facility] Comment on above: Order Comment: Order Added by Discern Expert. Performed By: #### 2 846513, 7991545, 8082709, 19085854, 2371986, 65196107, 739048896 ####[address] [address] Eosinophils/Leukocy kaleb Auto (Bld) [Pure # fraction] 0.3 E9/L Normal 0.0-0.5 [facility] Comment on above: Order Comment: Order Added by Discern Expert. Performed By: #### 2 433679, 1740270, 7227717, 34332196, 6436187, 90089127, 032115004 ####[address] [address] Lymphocytes/100 WBC (Bld) 28.8 % Normal 14.0-50.0 [facility] Comment on above: Order Comment: Order Added by Discern Expert. Performed By: #### 2 697889, 5250140, 8027531, 37494312, 1482215, 70307420, 063384883 ####[address] [address] Lymphocytes/Leukocy kaleb Auto (Bld) [Pure # fraction] 2.8 E9/L Normal 1.0-4.0 [facility] Comment on above: Order Comment: Order Added by Discern Expert. Performed By: #### 2 826482, 2276956, 1059295, 09043492, 0925502, 84990434, 076217299 ####[address] [place] [address] Monocytes/100 WBC (Bld) 7.4 % Normal 4.0-14.0 [facility] Comment on above: Order Comment: Order Added by Discern Expert. Performed By: #### 2 911896, 1658229, 5903773, 97778362, 2510629, 93716474, 595997227 ####[address] [address] Monocytes/Leukocyte s Auto (Bld) [Pure # fraction] 0.7 E9/L Normal 0.2-1.0 [facility] Comment on above: Order Comment: Order Added by Discern Expert. Performed By: #### 2 223280, 7004213, 4728209, 65516921, 9273146, 38297381, 313980892 ####[address] [address] Neutrophils/100 WBC (Bld) 60.0 % Normal 36.0-75.0 [facility] Comment on above: Order Comment: Order Added by Discern Expert. Performed By: #### 2 607799, 1268559, 4131198, 57031818, 8161927, 85515922, 441304569 ####[address] [address] Neutrophils/Leukocy kaleb Auto (Bld) [Pure # fraction] 5.9 E9/L Normal 2.0-7.5 [facility] Comment on above: Order Comment: Order Added by Discern Expert. Performed By: #### 2 417720, 4758883, 2781632, 22293542, 0955657, 40642773, 436367368 ####[address] [address] CBC w/ Auto Diffon 3 Erythrocyte distribution width (RBC) [Ratio] 15.8 % High 10.9-14.2 [facility] Comment on above: Performed By: #### 2 446891, 1811717, 7354646, 31862272, 6215684, 60252094, 932999518 ####[facility] [address] [place] [address] Hematocrit (Bld) [Volume fraction] 37.6 % Normal 34.0-46.0 [facility] Comment on above: Performed By: #### 2 805449, 4769265, 8091353, 33939997, 9426530, 49413557, 505587175 ####[address] [address] Hemoglobin (Bld) [Mass/Vol] 12.1 g/dL Normal 12.0-16.0 [facility] Comment on above: Performed By: #### 2 536094, 4294456, 6807224, 04046460, 2276976, 50411416, 795772053 ####[address] [address] MCH (RBC) [Entitic mass] 25.7 pg Low 27.0-34.0 [facility] Comment on above: Performed By: #### 2 906746, 5646986, 8362563, 04874314, 7213069, 50662869, 541128330 ####[address] [address] MCHC (RBC) [Mass/Vol] 32.3 g/dL Normal 31.4-36.0 [facility] Comment on above: Performed By: #### 2 272225, 4634806, 0062296, 80243590, 0239924, 17359551, 042531304 ####[address] [address] MCV (RBC) [Entitic vol] 79.6 fL Low 80.0-100.0 [facility] Comment on above: Performed By: #### 2 064061, 8474711, 4396603, 20904494, 5130150, 17428927, 051425083 ####[address] [address] Platelet mean volume (Bld) [Entitic vol] 7.2 fL Normal 6.4-10.8 [facility] Comment on above: Performed By: #### 2 066083, 5044183, 8370637, 23215180, 3774875, 00300950, 193270494 ####[facility] [address] [place] [address] Platelets (Bld) [#/Vol] 281.0 E9/L Normal 150.0-500.0 [facility] Comment on above: Performed By: #### 2 579373, 7093021, 9958143, 80198648, 2390999, 27374548, 127508153 ####[facility] [address] [place] [address] RBC (Bld) [#/Vol] 4.7 E12/L Normal 4.3-5.9 [facility] Comment on above: Performed By: #### 2 358708, 6415258, 4050053, 05246630, 4145965, 66801452, 096643903 ####[facility] [address] [place] [address] WBC corrected for nucl RBC Auto (Bld) [#/Vol] 9.8 E9/L Normal 4.0-11.0 [facility] Comment on above: Performed By: #### 2 456278, 7428104, 9311762, 11895624, 4551778, 46839286, 279527335 ####[facility] [address] [place] [address] CHEMISTRYOrdered By: Edwin bundy on 12-14-2022 Albumin DL <= 20 mg/L (U) [Mass/Vol] 61.6 microgram/mL High 0.0 - 19.0 mcg/mL [facility] Albumin Elph (U) [Mass fraction] 86.6 mg/dL Invalid Interpretation Code [facility] Comment on above: Interpretive Data: T he reference range and other method performance specifications have not been established for this test; results should be integrated into the clinical context for interpretation. Creatinine (U) [Mass/Vol] 214.9 mg/dL Invalid Interpretation Code [facility] Comment on above: Interpretive Data: T he reference range and other method performance specifications have not been established for this test; results should be integrated into the clinical context for interpretation. U Prot/Creat Ratio 403.00 mg/gm Cr High 0.00 - 200.00 mg/gm Cr [facility] CHEMISTRYOrdered By: SYSTEM SYSTEM on 12-14-2022 Albumin [Mass/Vol] 3.6 g/dL Normal 3.3 - 5.0 gm/dL F [facility] Albumin/Globulin [Mass ratio] 1.0 {ratio} Low 1.1 - 2.2 [facility] ALP [Catalytic activity/Vol] 81 [iU]/d Normal 21 - 98 Int._Unit/L [facility] ALT No additional P-5'-P [Catalytic activity/Vol] 28 [iU]/d Normal 6 - 46 Int._Unit/L [facility] Anion gap [Moles/Vol] 11 mmol/L Normal 6 - 16 mEq/L [facility] AST [Catalytic activity/Vol] 25 [iU]/d Normal 5 - 43 Int._Unit/L [facility] Bilirubin [Mass/Vol] 0.3 mg/dL Normal 0.0 - 1.1 mg/dL [facility] Calcium [Mass/Vol] 9.2 mg/dL Normal 8.9 - 11.1 mg/dL [facility] Chloride [Moles/Vol] 110 mmol/L Normal 101 - 111 mmol/L [facility] Cholesterol [Mass/Vol] 96 mg/dL Low 120 - 200 mg/dL [facility] Cholesterol in HDL [Mass/Vol] 36 mg/dL Invalid Interpretation Code [facility] Comment on above: Interpretive Data: H DL > or equal to 60 mg/dL: Low cardiovascular risk HDL < 40 mg/dL : High cardiovascular risk Cholesterol in LDL [Mass/Vol] 30 mg/dL Normal <=129mg/dL [facility] Cholesterol in VLDL [Mass/Vol] 47 mg/dL High 7 - 40 mg/dL [facility] CO2 [Moles/Vol] 23 mmol/L Normal 21 - 31 mmol/L [facility] Creatinine [Mass/Vol] 1.4 mg/dL High 0.5 - 1.3 mg/dL [facility] GFR/1.73 sq M.predicted among non-blacks MDRD (S/P/Bld) [Vol rate/Area] 42 mL/min/1.73 m2 Low >=59mL/min/1.73 m2 [facility] Chem S Comment on above: Interpretive Data: C hronic kidney disease could be indicated at eGFR's of less than 60 mL/min/1.73m2. Kidney failure is indicated at less than 15 mL/min/1.73m2. Globulin (S) [Mass/Vol] 3.6 g/dL Normal 1.4 - 4.0 gm/dL [facility] Glucose [Mass/Vol] 167 mg/dL Normal 55 - 199 mg/dL [facility] Comment on above: Interpretive Data: I f this glucose result represents a fasting glucose, interpretation should refer to the following reference range: 55-99 mg/dL Potassium [Moles/Vol] 4.7 mmol/L Normal 3.5 - 5.3 mmol/L [facility] Protein [Mass/Vol] 7.2 g/dL Normal 6.0 - 7.8 gm/dL [facility] Remisol Sodium [Moles/Vol] 139 mmol/L Normal 135 - 145 mmol/L [facility] Triglyceride [Mass/Vol] 233 mg/dL High <=149mg/dL [facility] TSH Qn 3.07 m[IU]/L Normal 0.34 - 5.60 mcIU/mL [facility] Urea nitrogen [Mass/Vol] 22 mg/dL High 5 - 21 mg/dL [facility] Urea nitrogen/Creatinine [Mass ratio] 16 mg/mg Normal 10 - 20 [facility] CHEMISTRYOrdered By: Leigh Magana on 12-14-2022 HbA1c (Bld) [Mass fraction] 9.0 % High <=5.9% [facility] ChemAutoSS CMPon 12-14-2022 Albumin [Mass/Vol] 3.6 g/dL Normal 3.3-5.0 [facility] Comment on above: Performed By: #### 2 479258, 7208839, 7393692, 49546329, 2547849, 82671921, 268648231 ####[facility] [address] [place] [address] Albumin/Globulin (S) [Mass conc ratio] 1.0 Low 1.1-2.2 [facility] Comment on above: Performed By: #### 2 574140, 5085382, 6720288, 67144313, 8385291, 18616399, 569358673 ####[facility] [address] [place] [address] ALP [Catalytic activity/Vol] 81 Int._Unit/L Normal 21-98 [facility] Comment on above: Performed By: #### 2 684656, 9293085, 1803023, 19699877, 8779777, 18149236, 362368870 ####[facility] [address] [place] [address] ALT No additional P-5'-P [Catalytic activity/Vol] 28 Int._Unit/L Normal 6-46 [facility] Comment on above: Performed By: #### 2 165189, 6780437, 0932859, 35651105, 4100024, 43944908, 793033455 ####[facility] [address] [place] [address] Anion gap [Moles/Vol] 11 mmol/L Normal 6-16 [facility] Comment on above: Performed By: #### 2 013378, 0622290, 3585857, 71570079, 4509465, 30213861, 408396720 ####[facility] [address] [place] [address] AST [Catalytic activity/Vol] 25 Int._Unit/L Normal 5-43 [facility] Comment on above: Performed By: #### 2 147841, 9034264, 4993562, 10261670, 7605030, 97618080, 634631044 ####[facility] [address] [place] [address] Bilirubin [Mass/Vol] 0.3 mg/dL Normal 0.0-1.1 [facility] Comment on above: Performed By: #### 2 010081, 2167122, 8760051, 02658982, 8127258, 32115535, 474867301 ####[facility] [address] [place] [address] Calcium [Mass/Vol] 9.2 mg/dL Normal 8.9-11.1 [facility] Comment on above: Performed By: #### 2 018744, 7715834, 1480332, 26945668, 4760888, 93274152, 468036854 ####[facility] [address] [place] [address] Chloride [Moles/Vol] 110 mmol/L Normal 101-111 [facility] Comment on above: Performed By: #### 2 542938, 5521639, 8242836, 26915382, 4840943, 24203155, 909706986 ####[facility] [address] [place] [address] CO2 [Moles/Vol] 23 mmol/L Normal 21-31 [facility] Comment on above: Performed By: #### 2 801133, 2478569, 9574444, 18142031, 9954323, 07518860, 134251605 ####[facility] [address] [place] [address] Creatinine [Mass/Vol] 1.4 mg/dL High 0.5-1.3 [facility] Comment on above: Performed By: #### 2 606064, 1167670, 4976745, 70985623, 1749813, 51521665, 270996654 ####[facility] [address] [place] [address] Globulin (S) [Mass/Vol] 3.6 g/dL Normal 1.4-4.0 [facility] Comment on above: Performed By: #### 2 943875, 6980548, 5530108, 12797086, 3189040, 09841403, 576306276 ####[facility] [address] [place] [address] Glucose [Mass/Vol] 167 mg/dL Normal 55-199 [facility] Comment on above: Result Comment: If t his glucose result represents a fasting glucose, interpretation should refer to the following reference range: 55-99 mg/dL Performed By: #### 2 382205, 2781291, 5191258, 47307098, 2030000, 86327366, 518748177 ####[facility] [address] [place] [address] Potassium [Moles/Vol] 4.7 mmol/L Normal 3.5-5.3 [facility] Comment on above: Performed By: #### 2 268738, 1505000, 8681371, 74760580, 5090855, 07517969, 784421621 ####[facility] [address] [place] [address] Protein [Mass/Vol] 7.2 g/dL Normal 6.0-7.8 [facility] Comment on above: Performed By: #### 2 722859, 2164620, 7673725, 04855659, 2840888, 78780590, 360869214 ####[facility] [address] [place] [address] Sodium [Moles/Vol] 139 mmol/L Normal 135-145 [facility] Comment on above: Performed By: #### 2 395667, 8993363, 1759569, 74296127, 1164876, 49802491, 451391187 ####[facility] [address] [place] [address] Urea nitrogen [Mass/Vol] 22 mg/dL High 5-21 [facility] Comment on above: Performed By: #### 2 515008, 0924829, 6344935, 04359294, 3146639, 52844624, 986850143 ####[facility] [facility] [address] [place] [address] Urea nitrogen/Creatinine [Mass ratio] 16 No Units Normal 10-20 [facility] Comment on above: Performed By: #### 2 [id number], [id number], 8334058, [id number], 7457722, [id number], [id number] ####[facility] [address] [place] [address] Family Medicine Office/Clini c Noteon 12-14-2022 Family Medicine Office/Clinic Note HPI Staff Pato is a 62 year old female presenting to establish care Establish Care: History:CKD,COPD,DM,HT N,Depression Last provider: House Any recent labs: none Health Maintenance UTD: Colonoscopy: 08/26/22 normal Mammogram: due Pelvic/Pap: none for years covid: UTD flu: refused phq9-15 Acute: Current issues/complaints: lower back is hurting worried about a kidney stone, she's had in the past. no blood in her urine History of Present Illness Patient presents establish care with me today. Patient has a past medical history of chronic kidney disease uncontrolled type 2 diabetes hypertension depression coronary artery disease status post CABG x3. Patient's only complaint today is left lower back pain. Back pain is intermittent for the last 2 weeks. Progressively worsening. Hurts more from sitting to standing. No improvement with OTCs. Patient has had volatile blood sugars. Patient states recently she was in the hospital for blood sugar in the 50s. But patient can have blood sugars in the 300s. Patient has a diagnosis of COPD on the chart however patient states she has never been formally diagnosed. Patient has no shortness of breath today. Review of Systems PHQ Score Initial Depression Screen Score: 4 Detailed Depression Screen Score: 11 Total Depression Screen Score: 15 Physical Exam Vitals & Measurements T: 36.5 ?C(Oral) HR: 86(Peripheral) RR: 14 BP: 124/72 SpO2: 96% HT: 62 in HT: 157.48 cm WT: 88.4 kg WT: 194.48 lb BMI: 35.65 General: alert, no acute distress ENMT: oral mucosa moist, Cardiovascular: regular rate and rhythm, normal peripheral perfusion Respiratory: Lungs CTA, respirations non labored Extremities: no deformity, no trauma Neurological: oriented x 4, LOC appropriate for age, CN II-XII intact, motor strength equal & normal bilaterally, speech normal Abdomen: Soft, Nontender, Non-distended, + BS Back is point tender to palpation in the left lower lumbar region. Paraspinally. Assessment/Plan 1. CKD (chronic kidney disease) (N18.9: Chronic kidney disease, unspecified) At this time I am unsure which type of his CKD the patient has. Labs have been ordered. We will follow-up in 2 weeks. Ordered: methylPREDNISolone, = 1 packet(s), Oral, As Directed, as directed on package labeling, X 6 day(s), # 21 tab(s), Refills(s) 0, Pharmacy: [facility] #[id number], 157.5, cm, 12/14/22 6:58:00 EDT, Height/Length Dosing, 88.4, kg, 12/14/22 6:58:00 EDT, Weight Dosing Body Mass Index (BMI) documented 3008F CBC w/ Auto Diff Comprehensive Metabolic Panel Current tobacco smoker 1034F Depression Screening Positive 3354F HgbA1c Influenza immunization status assessed 1030F Lipid Panel Microalbumin Level Urine Most recent diastolic blood pressure <80 mm Hg 3078F Systolic BP <130 mm Hg (Most Recent) 3074F TSH With T4fr Reflex U Protein/Creat Ratio 2. Chronic obstructive pulmonary disease (J44.9: Chronic obstructive pulmonary disease, unspecified) Patient was diagnosed with COPD based on being short of breath during her CABG and history of smoking. We will do PFTs if the patient becomes short of breath again. Ordered: methylPREDNISolone, = 1 packet(s), Oral, As Directed, as directed on package labeling, X 6 day(s), # 21 tab(s), Refills(s) 0, Pharmacy: [facility] #[id number], 157.5, cm, 12/14/22 6:58:00 EDT, Height/Length Dosing, 88.4, kg, 12/14/22 6:58:00 EDT, Weight Dosing Body Mass Index (BMI) documented 3008F CBC w/ Auto Diff Comprehensive Metabolic Panel Current tobacco smoker 1034F Depression Screening Positive 3354F HgbA1c Influenza immunization status assessed 1030F Lipid Panel Microalbumin Level Urine Most recent diastolic blood pressure <80 mm Hg 3078F Systolic BP <130 mm Hg (Most Recent) 3074F TSH With T4fr Reflex U Protein/Creat Ratio 3. Diabetes (E11.9: Type 2 diabetes mellitus without complications) Last A1c patient reports is a 9. We will order lab work today. We will start Trulicity. Given the low on Lantus we will eventually drop the Lantus down while increasing Trulicity. But because we are using steroids for the back pain we will have the patient continue on Lantus 30 twice daily and keep us informed where she is at. Ordered: methylPREDNISolone, = 1 packet(s), Oral, As Directed, as directed on package labeling, X 6 day(s), # 21 tab(s), Refills(s) 0, Pharmacy: [facility] #[id number], 157.5, cm, 12/14/22 6:58:00 EDT, Height/Length Dosing, 88.4, kg, 12/14/22 6:58:00 EDT, Weight Dosing Body Mass Index (BMI) documented 3008F CBC w/ Auto Diff Comprehensive Metabolic Panel Current tobacco smoker 1034F Depression Screening Positive 3354F HgbA1c Influenza immunization status assessed 1030F Lipid Panel Microalbumin Level Urine Most recent diastolic blood pressure <80 mm Hg 3078F Systolic BP <130 mm Hg (Most Recent) 3074F TSH With T4fr Reflex U Protein/Creat Ratio 4. Essential hypertension (I10: Essential (primary) hypertension) At goal today. Continue on m (more content not included)... Normal [facility] Comment on above: Result Comment: Elec tronically Signed By: Tao GTZ, Dandre Taylor\.br\Date and Time Signed: 12/14/22 07:45 EDT HEMATOLOGYOrdered By: SYSTEM SYSTEM on 12-14-2022 Basophils/100 WBC (Bld) 0.6 % Normal 0.0 - 2.0 % [facility] HemeAutoSS Basophils/Leukocyte s Auto (Bld) [Pure # fraction] 0.1 E9/L Normal 0.0 - 0.2 E9/L [facility]eAutoSS Eosinophils/100 WBC (Bld) 3.2 % Normal 0.0 - 8.0 % [facility] HemeAutoSS Eosinophils/Leukocy kaleb Auto (Bld) [Pure # fraction] 0.3 E9/L Normal 0.0 - 0.5 E9/L [facility]eAutoSS Lymphocytes/100 WBC (Bld) 28.8 % Normal 14.0 - 50.0 % [facility] HemeAutoSS Lymphocytes/Leukocy kaleb Auto (Bld) [Pure # fraction] 2.8 E9/L Normal 1.0 - 4.0 E9/L [facility]eAutoSS Monocytes/100 WBC (Bld) 7.4 % Normal 4.0 - 14.0 % [facility] HemeAutoSS Monocytes/Leukocyte s Auto (Bld) [Pure # fraction] 0.7 E9/L Normal 0.2 - 1.0 E9/L [facility] HemeAutoSS Neutrophils/100 WBC (Bld) 60.0 % Normal 36.0 - 75.0 % [facility]eAutoSS Neutrophils/Leukocy kaleb Auto (Bld) [Pure # fraction] 5.9 E9/L Normal 2.0 - 7.5 E9/L [facility] HemeAutoSS HEMATOLOGYOrdered By: Lizbet Almeida on 12-14-2022 Erythrocyte distribution width (RBC) [Ratio] 15.8 % High 10.9 - 14.2 % [facility] Hematocrit (Bld) [Volume fraction] 37.6 % Normal 34.0 - 46.0 % [facility] Hemoglobin (Bld) [Mass/Vol] 12.1 g/dL Normal 12.0 - 16.0 gm/dL [facility] MCH (RBC) [Entitic mass] 25.7 pg Low 27.0 - 34.0 pg [facility] MCHC (RBC) [Mass/Vol] 32.3 g/dL Normal 31.4 - 36.0 gm/dL [facility] MCV (RBC) [Entitic vol] 79.6 fL Low 80.0 - 100.0 fL [facility] Platelet mean volume (Bld) [Entitic vol] 7.2 fL Normal 6.4 - 10.8 fL [facility] Platelets (Bld) [#/Vol] 281.0 E9/L Normal 150.0 - 500.0 E9/L [facility] RBC (Bld) [#/Vol] 4.7 E12/L Normal 4.3 - 5.9 E12/L [facility] WBC corrected for nucl RBC Auto (Bld) [#/Vol] 9.8 E9/L Normal 4.0 - 11.0 E9/L [facility] ZoqT1xhc 12-14-2022 HbA1c (Bld) [Mass fraction] 9.0 % High <=5.9 [facility] Comment on above: Performed By: #### 2 399160, 3004254, 8421470, 33694950, 0737585, 87650289, [id number] ####[facility] [address] [place] [address] Lipid Panelon 12-14-2022 Cholesterol [Mass/Vol] 96 mg/dL Low 120-200 [facility] Comment on above: Performed By: #### 2 872964, 6747775, 9239624, 03847463, 8548729, 76527661, [id number] ####[facility] [address] [place] [address] Cholesterol in HDL [Mass/Vol] 36 mg/dL Invalid Interpretation Code [facility] Comment on above: Result Comment: HDL > or equal to 60 mg/dL: Low cardiovascular risk HDL < 40 mg/dL : High cardiovascular risk Performed By: #### 2 640449, 0423556, 4066668, 29877901, 0563365, 75611492, [id number] ####[facility] [address] [place] [address] Cholesterol in LDL [Mass/Vol] 30 mg/dL Normal <=129 [facility] Comment on above: Performed By: #### 2 805766, 4954858, 7264361, 35043309, 8214804, 99967347, [id number] ####[facility] [address] [place] [address] Cholesterol in VLDL [Mass/Vol] 47 mg/dL High 7-40 [facility] Comment on above: Performed By: #### 2 208931, 5513004, 9756998, 90629010, 9028400, 75511247, 915349616 ####[facility] [address] [facility] [place] [address] Triglyceride [Mass/Vol] 233 mg/dL High <=149 [facility] Comment on above: Performed By: #### 2 822248, 5048239, 3611272, 52622363, 3611470, 05166733, [id number] ####[facility] [address] [place] [address] Patient Educationon 12-15-19 Patient Education Nutrition BMI for Adults What is BMI? Body mass index (BMI) is a number that is calculated from a person's weight and height. BMI can help estimate how much of a person's weight is composed of fat. BMI does not measure body fat directly. Rather, it is an alternative to procedures that directly measure body fat, which can be difficult and expensive. BMI can help identify people who may be at higher risk for certain medical problems. What are BMI measurements used for? BMI is used as a screening tool to identify possible weight problems. It helps determine whether a person is obese, overweight, a healthy weight, or underweight. BMI is useful for: ? Identifying a weight problem that may be related to a medical condition or may increase the risk for medical problems. ? Promoting changes, such as changes in diet and exercise, to help reach a healthy weight. BMI screening can be repeated to see if these changes are working. How is BMI calculated? BMI involves measuring your weight in relation to your height. Both height and weight are measured, and the BMI is calculated from those numbers. This can be done either in Maltese ([place] or metric measurements. Note that charts and online BMI calculators are available to help you find your BMI quickly and easily without having to do these calculations yourself. To calculate your BMI in Maltese ([place] measurements: 1. Measure your weight in pounds (lb). 2. Multiply the number of pounds by 703. ? For example, for a person who weighs 180 lb, multiply that number by 703, which equals 126,540. 3. Measure your height in inches. Then multiply that number by itself to get a measurement called inches squared. ? For example, for a person who is 70 inches tall, the inches squared measurement is 70 inches x 70 inches, which equals 4,900 inches squared. 4. Divide the total from step 2 (number of lb x 703) by the total from step 3 (inches squared): 126,540 ? 4,900 = 25.8. This is your BMI. To calculate your BMI in metric measurements: 1. Measure your weight in kilograms (kg). 2. Measure your height in meters (m). Then multiply that number by itself to get a measurement called meters squared. ? For example, for a person who is 1.75 m tall, the meters squared measurement is 1.75 m x 1.75 m, which is equal to 3.1 meters squared. 3. Divide the number of kilograms (your weight) by the meters squared number. In this example: 70 ? 3.1 = 22.6. This is your BMI. What do the results mean? BMI charts are used to identify whether you are underweight, normal weight, overweight, or obese. The following guidelines will be used: ? Underweight: BMI less than 18.5. ? Normal weight: BMI between 18.5 and 24.9. ? Overweight: BMI between 25 and 29.9. ? Obese: BMI of 30 or above. Keep these notes in mind: ? Weight includes both fat and muscle, so someone with a muscular build, such as an athlete, may have a BMI that is higher than 24.9. In cases like these, BMI is not an accurate measure of body fat. ? To determine if excess body fat is the cause of a BMI of 25 or higher, further assessments may need to be done by a health care provider. ? BMI is usually interpreted in the same way for men and women. Where to find more information For more information about BMI, including tools to quickly calculate your BMI, go to these websites: ? Centers for Disease Control and Prevention: www.cdc.gov ? [place] [employer]: www.heart.org ? National Heart, Lung, and Blood [place]: www.nhlbi.nih.gov Summary ? Body mass index (BMI) is a number that is calculated from a person's weight and height. ? BMI may help estimate how much of a person's weight is composed of fat. BMI can help identify those who may be at higher risk for certain medical problems. ? BMI can be measured using Maltese measurements or metric measurements. ? BMI charts are used to identify whether you are underweight, normal weight, overweight, or obese. This information is not intended to replace advice given to you by your health care provider. Make sure you discuss any questions you have with your health care provider. Document Revised: 11/22/2019 Document Reviewed: 09/29/2019 [employer] Patient Education ? 2022 [employer] Normal [facility] TSH With T4fr Reflexon 12-14 TSH Qn 3.07 m[IU]/L Normal 0.34-5.60 [facility] Comment on above: Performed By: #### 2 919795, 7898068, 8352032, 01235354, 2010165, 27564152, [id number] ####[facility] [address] [place] [address] U Microalbon 12-14-2022 Albumin DL <= 20 mg/L (U) [Mass/Vol] 61.6 microgram/mL High 0.0-19.0 [facility] Comment on above: Performed By: #### 1 3966084, [id number] ####[facility] [address] [place] [address] U Protein/Creat Ratioon Albumin Elph (U) [Mass fraction] 86.6 mg/dL Invalid Interpretation Code [facility] Comment on above: Result Comment: The reference range and other method performance specifications have not been established for this test; results should be integrated into the clinical context for interpretation. Performed By: #### 1 0040184, [id number] ####[address] [address] Creatinine (U) [Mass/Vol] 214.9 mg/dL Invalid Interpretation Code [facility] Comment on above: Result Comment: The reference range and other method performance specifications have not been established for this test; results should be integrated into the clinical context for interpretation. Performed By: #### 1 3096468, [id number] ####[address] [address] U Prot/Creat Ratio 403.00 mg/gm Cr High .00-200.00 [facility] Comment on above: Performed By: #### 1 2876608, [id number] ####[address] [address] eGFRon 12-14-2022 GFR/1.73 sq M.predicted among non-blacks MDRD (S/P/Bld) [Vol rate/Area] 42 mL/min/1.73 m2 Low >=59 [facility] Comment on above: Order Comment: Order added by Discern Expert. Result Comment: Detective Bureau Chief riley kidney disease could be indicated at eGFR's of less than 60 mL/min/1.73m2. Kidney failure is indicated at less than 15 mL/min/1.73m2. Performed By: #### 2 637307, 9122151, 7412626, 49243673, 0079932, 38654755, 896753567 ####[facility] [address] [place] [address] Auth for Release of Medical Recordson 12-03-2022 Auth for Release of Medical Records [id number]#1.0 0CD:127 Normal [facility] Office Visiton 09-29-2022 Follow-up visit [id number] Pato Corral 1960 F Date Provider Department Center 09/29/2022 Rae-MARTINE [facility]INTOS[facility] No family history on file Level of Service:59114 NM OFFICE/OUTPATIENT ESTABLISHED LOW MDM 20-29 MIN Reason for Visit and Comments: Follow-up [080910] - 1 YEAR FOLLOW UP Normal [facility] Operative Reporton Operative Report [id number] 0CD:127 Normal [facility] Outside Colonoscopyon 2022 Outside Colonoscopy [id number]#1.0 0CD:127 Normal [facility] Outside Colonoscopy [id number]#1.00 CD:127 Normal [facility] Reminderson 08-31-2022 Reminders - From: Tammi Mejia LPN To: GSN - Clinical; Sent: 08/31/2022 09:32:45 EDT Show up: 07/27/2027 07:00:00 EDT Subject: colonoscopy recall Due Date/Time: 08/27/2027 07:00:00 EDT Reminder/Recall Patient due for colonoscopy 08/27/2027 due to family history of colon cancer. Normal [facility] Lab Reportson 08-26-2022 Lab Reports [id number]#1. 00CD:127 Normal [facility] Consent for Procedure/Surger yon 08-03-2022 Consent for Procedure/Surgery [id number]#1.0 0CD:127 Normal [facility] Facesheeton 08-03-2022 Facesheet [id number]#1.0 0CD:127 Normal [facility] Ambulatory Visit Summaryon 0 07-31-2022 Ambulatory Visit Summary PATO CORRAL :1960 Visit Date:07/31/2022 Ambulatory Visit Instructions Your Diagnosis Screening for malignant neoplasm of colon Family history of colon cancer Your Care Team Attending Physician - Job MOORE MD Primary Care Physician - Gianfranco Lua DO Referring Physician - Gianfranco Lau DO This Is Your Medications List Contact prescribing physician if questions or concerns amlodipine (amLODIPine 5 mg Tab) aspirin (aspirin 81 mg Oral EC Tab) atorvastatin (atorvastatin 80 mg Tab) buPROPion (Wellbutrin SR 150 mg Tab-ER) carvedilol (carvedilol 25 mg Tab) clonazepam (ClonazePAM 0.5 mg Tab) docusate (Colace 100 mg Cap) donepezil (Aricept 5 mg Tab) duloxetine (duloxetine 60 mg Cap-DR) gabapentin (gabapentin 400 mg Cap) glimepiride (Amaryl 4 mg Tab) insulin glargine (Lantus 100 units/mL Injection-Insulin) metformin-sitagliptin (Janumet 50 mg/1000 mg oral tablet) multivitamin (Multi Vitamins oral tablet) Procedures Performed Colonoscopy (05/04/2016), CABG x 4 - Coronary artery bypass grafts x 4, Carpal tunnel release, section, section, section, Cholecystectomy, Excision of lipoma of back, Vaginal total hysterectomy. Discharge Vitals Heart Rate (Peripheral) 80 Respiratory Rate 16 Blood Pressure 128/84 Height 157.48 cm Height 62 in Weight 89.5 kg Weight 196.9 lb BMI 36.09 Medications What How Much When Instructions Unchanged amlodipine (amLODIPine 5 mg Tab) 1 Tablets By Mouth Every day Contact prescribing physician if questions or concerns Unchanged aspirin (aspirin 81 mg Oral EC Tab) 1 Tablets By Mouth Every day Contact prescribing physician if questions or concerns Unchanged atorvastatin (atorvastatin 80 mg Tab) 1 Tablets By Mouth Every day Contact prescribing physician if questions or concerns Unchanged buPROPion (Wellbutrin SR 150 mg Tab-ER) 1 Tablets By Mouth Every day Contact prescribing physician if questions or concerns Unchanged carvedilol (carvedilol 25 mg Tab) 1 Tablets By Mouth 2 times a day Contact prescribing physician if questions or concerns Unchanged clonazepam (ClonazePAM 0.5 mg Tab) 1 Tablets By Mouth Once a day (at bedtime) Contact prescribing physician if questions or concerns Unchanged docusate (Colace 100 mg Cap) 1 Capsules By Mouth Every day as needed for for constipation Contact prescribing physician if questions or concerns Unchanged donepezil (Aricept 5 mg Tab) 1 Tablets By Mouth 2 times a day Contact prescribing physician if questions or concerns Unchanged duloxetine (duloxetine 60 mg Cap-DR) 1 Capsules By Mouth Every day Contact prescribing physician if questions or concerns Unchanged gabapentin (gabapentin 400 mg Cap) 1 Capsules By Mouth 3 times a day Contact prescribing physician if questions or concerns Unchanged glimepiride (Amaryl 4 mg Tab) 1 Tablets By Mouth 2 times a day Contact prescribing physician if questions or concerns Unchanged insulin glargine (Lantus 100 units/ mL Injection-Insulin) 27 Units Subcutaneous 2 times a day Contact prescribing physician if questions or concerns Unchanged metformin-sitagliptin (Janumet 50 mg/ 1000 mg oral tablet) 1 Tablets By Mouth 2 times a day Contact prescribing physician if questions or concerns Unchanged multivitamin (Multi Vitamins oral tablet) 1 Tablets By Mouth Every day Contact prescribing physician if questions or concerns Allergies No Known Allergies No Known Medication Allergies Problems Ongoing - Any problem that you are currently receiving treatment for. BMI 36.0-36.9,adult Chronic obstructive pulmonary disease CKD (chronic kidney disease) Depression Diabetes Essential hypertension Family history of colon cancer Hearing loss Hyperlipidemia KELLY (obstructive sleep apnea) Polyneuropathy Retinopathy Screening for malignant neoplasm of colon Smoker Viola [facility] Pre-Certification Formon Pre-Certification Form [id number]. 00CD:127 Normal [facility] CBC AUTO DIFFon 07-28-2022 BASO # 0.1 103/ul Normal 0.0-0.1 [facility] Comment on above: Performed By: #### C BC ####[facility] [address] [place] [address]Dr. Tremayne Harrison Basophils/100 WBC (Bld) 0.6 % Normal 0.2-2.0 [facility] Comment on above: Performed By: #### C BC ####[facility] [address] [place], [place] [address]Dr. Tremayne Harrison EO # 0.3 103/ul Normal 0.0-0.7 [facility] Comment on above: Performed By: #### C BC ####[facility] [address] [place], [place] [address]Dr. Tremayne Harrison Eosinophils/100 WBC (Bld) 3.9 % Normal 0.9-7.0 [facility] Comment on above: Performed By: #### C BC ####[facility] [address] [place], [place] [address]Dr. Princessniki Harrison Erythrocyte distribution width (RBC) [Ratio] 14.6 % Normal 11.0-15.0 [facility] Comment on above: Performed By: #### C BC ####[facility] [address] [place] [address]Dr. Princessniki Hrarison Hematocrit (Bld) [Volume fraction] 38.8 % Normal 36.0-48.0 [facility] Comment on above: Performed By: #### C BC ####[facility] [address] [place] [address]Dr. Tremayne Harrison Hemoglobin (Bld) [Mass/Vol] 12.1 g/dL Normal 12.0-16.0 [facility] Comment on above: Performed By: #### C BC ####[facility] [address] [place], [place] [address]Dr. Tremayne Harrison IG # 0.02 10e3/ul Normal 0.00-0.03 [facility] Comment on above: Performed By: #### C BC ####[facility] [address] [place] [address]Dr. Tremayne Harrison IG % 0.2 % Normal 0.0-0.5 [facility] Comment on above: Performed By: #### C BC ####[facility] [address] [place] [address]Dr. Tremayne Harrison LYMPH # 2.8 103/ul Normal 1.2-3.8 [facility] Comment on above: Performed By: #### C BC ####[facility] [address] [place] [address]Dr. Tremayne Harrison Lymphocytes/100 WBC (Bld) 31.6 % Normal 20.5-60.0 [facility] Comment on above: Performed By: #### C BC ####[facility] [address] [place] [address]Dr. Tremayne Harrison MANUAL DIFF REQ NO Normal [facility] Comment on above: Performed By: #### C BC ####[facility] [address] [place] [address]Dr. Tremayne Harrison MCH (RBC) [Entitic mass] 25.2 pg Critically low 26.7-34.0 [facility] Comment on above: Performed By: #### C BC ####[facility] [address] [place] [address]Dr. Tremayne Harrison MCHC (RBC) [Mass/Vol] 31.2 g/dL Normal 29.9-35.2 [facility] Comment on above: Performed By: #### C BC ####[facility] [address] [place] [address]Dr. Tremayne Harrison MCV (RBC) [Entitic vol] 80.7 fL Critically low 81.0-99.0 [facility] Comment on above: Performed By: #### C BC ####[facility] [address] [place] [address]Dr. Tremayne Harrison MONO # 0.8 103/ul Normal 0.3-0.8 [facility] Comment on above: Performed By: #### C BC ####[facility] [address] [place] [address]Dr. Tremayne Harrison Monocytes/100 WBC (Bld) 8.5 % Normal 1.7-12.0 [facility] [facility] [place] Comment on above: Performed By: #### C BC ####[facility] [place] [id number] [id number]. Tremayne Harrison NEUT # 4.9 103/ul Normal 1.4-6.5 [facility] [place] Comment on above: Performed By: #### C BC ####[facility] [place] [id number] [id number]. Tremayne Harrison Neutrophils/100 WBC (Bld) 55.2 % Normal 43.0-75.0 [facility] [place] Comment on above: Performed By: #### C BC ####[facility] [place] [id number] [id number]. Tremayne Harrison Platelet mean volume (Bld) [Entitic vol] 8.5 fL Critically low 9.5-13.5 [facility] Comment on above: Performed By: #### C BC ####[facility] [place] [id number] [id number]. Tremayne Harrison PLT 273 103/ul Normal 150-450 [facility] [place] Comment on above: Performed By: #### C BC ####[facility] [place] [id number] [id number]. Tremayne Harrison RBC 4.81 106/ul Normal 4.20-5.40 [facility] [place] Comment on above: Performed By: #### C BC ####[facility] [place] [id number] [id number]. Tremayne Harrison WBC 8.8 103/ul Normal 4.0-11.0 [facility] [place] Comment on above: Performed By: #### C BC ####[facility] [place] [id number] [place], [place] [id number]. Tremayne Harrison CT CHEST W CONon 07-28-2022 CT CHEST W CON EXAMINATION: CT CHES T W CON HISTORY: Chest pain. COMPARISON: XR 07/28/2022, CT abdomen 05/24/2021. TECHNIQUE: Helical axial CT images of the chest were obtained without the administration of IV contrast. Dose reduction techniques were achieved by using automated exposure control and/or adjustment of mA and/or kV according to patient size and/or use of iterative reconstruction technique. FINDINGS: VASCULATURE: The main pulmonary artery is mildly dilated, 3 cm in diameter, suspicious for pulmonary hypertension. Mild atherosclerotic calcifications of the thoracic aorta are seen. HEART/PERICARDIUM: The heart is mildly enlarged. No pericardial effusion. Median sternotomy wires and mediastinal surgical clips consistent with CABG. MEDIASTINAL/HILAR LYMPH NODES: Within the limitations of lack of IV contrast, no lymphadenopathy are identified. ESOPHAGUS: Normal as visualized. PLEURAL CAVITY: No pleural effusion or pneumothorax. LUNGS/AIRWAYS: No areas of consolidation is seen. There are no suspicious nodule or mass. There are scarring in left upper right middle and bilateral lower lobes. Mild subpleural fibrosis is seen in bilateral posterior lower lobes. The central airways are patent. CHEST WALL/AXILLA/LOWER NECK: There are a few tiny low-attenuation areas in bilateral thyroid gland. VISUALIZED UPPER ABDOMEN: No acute abnormality. There is a subcentimeter peripherally enhancing lesion in the left anterior liver, too small to characterize and not visualized on previous studies. BONES: No acute process..There is accentuation of thoracic kyphosis and moderate to severe degenerative changes of mid lower thoracic spine with large bridging osteophytes. IMPRESSION: No CT evidence of pneumonia. Mild cardiomegaly. Mildly dilated main pulmonary artery, suspicious for pulmonary hypertension. Incidental tiny low-attenuation areas in bilateral thyroid gland, suspicious for nodules. Ultrasound of thyroid is recommended for further evaluation. A small peripherally enhancing lesion in left liver, too small to characterize, which is most likely a hemangioma. However, the lesion is not visualized on previous CT abdomen and CTA chest studies. Ultrasound of liver is recommended. Electronically authenticated by: [facility] Date: 2022-07-28 17:05 Normal [facility] D-DIMERon 07-28-2022 D-DIMER 0.37 mg/L FEU Normal <=0.59 [facility] Comment on above: Performed By: #### D DIM #### [facility] [place] [facility] [address] [address] [address] Treamyne Harrison D-DIMER COMMENTS SEE BELOW Normal [facility] Comment on above: Result Comment: Incr eases in D-Dimer concentration observed with thromboembolic events can be variable due to localization, size, and age of the thrombus. Therefore, a thromboembolic event cannot be diagnosed with certainty on the basis of the reference range. D-Dimers may also be elevated for a variety of disorders including: advanced age, , coronary disease, cancer, liver disease, infection, inflammation, hematoma, DIC, trauma, post-surgery, diabetes, thrombolytic or anticoagulant therapy, stress, and generalized hospitalization. Performed By: #### D DIM #### [facility] [place] [facility] [address] [place] [address] Dr. Tremayne Harrison PROF 14(COMP METB)on 023 Albumin [Mass/Vol] 3.2 g/dL Critically low 3.4-5.0 Th [facility] Comment on above: Performed By: #### C MP, HSTROPN #### [facility] [place] [facility] [address] [place] [address] Dr. Tremayne Harrison Albumin/Globulin [Mass ratio] 0.8 {ratio} Normal [facility] Comment on above: Performed By: #### C MP, HSTROPN #### [facility] [place] [facility] [address] [place] [address] Dr. Tremayne Harrison ALP [Catalytic activity/Vol] 98 U/L Normal 46-116 [facility] Comment on above: Performed By: #### C MP, HSTROPN #### [facility] [place] [facility] [address] [place] [address] Dr. Tremayne Harrison ALT [Catalytic activity/Vol] 38 U/L Normal 14-59 [facility] Comment on above: Performed By: #### C MP, HSTROPN #### [facility] [place] [facility] [address] [place] [address] Dr. Tremayne Harrison Anion gap [Moles/Vol] 12.2 mmol/L Normal [facility] Comment on above: Performed By: #### C MP, HSTROPN #### [facility] [place] [facility] [address] [place] [address] Dr. Tremayne Harrison AST [Catalytic activity/Vol] 19 U/L Normal 15-37 [facility] Comment on above: Performed By: #### C MP, HSTROPN #### [facility] [place] [facility] [address] [place] [address] Dr. Tremayne Harrison Bilirubin [Mass/Vol] 0.5 mg/dL Normal 0.2-1.0 [facility] Comment on above: Performed By: #### C MP, HSTROPN #### [facility] [place] [facility] [address] [place] [address] Dr. Tremayne Harrison Calcium [Mass/Vol] 9.6 mg/dL Normal 8.5-10.1 [facility] Comment on above: Performed By: #### C MP, HSTROPN #### [facility] [place] [facility] [address] [place] [address] Dr. Tremayne Harrison Chloride [Moles/Vol] 106 mmol/L Normal 98-107 [facility] Comment on above: Performed By: #### C MP, HSTROPN #### [facility] [place] [facility] [address] [place] [address] Dr. Tremyane Harrison CO2 [Moles/Vol] 27.5 mmol/L Normal 21.0-32.0 [facility] Comment on above: Performed By: #### C MP, HSTROPN #### [facility] [place] [facility] [address] [place] [address] Dr. Tremayne Harrison Creatinine [Mass/Vol] 1.15 mg/dL Critically high 0.55-1.02 [facility] Comment on above: Performed By: #### C MP, HSTROPN #### [facility] [place] [facility] [address] [place] [address] Dr. Tremayne Harrison EGFR-AF THAI 58 mL/min/1.73m2 Critically low >=60 [facility] [place] Comment on above: Performed By: #### C MP, HSTROPN #### [facility] [place] [facility] [address] [place] [address] Dr. Tremayne Harrison EGFR-NON AF THAI 48 mL/min/1.73m2 Critically low >=60 [facility] Comment on above: Performed By: #### C MP, HSTROPN #### [facility] [place] [facility] [address] [place] [address] Dr. Tremayne Harrison Globulin (S) [Mass/Vol] 4.1 g/dL Normal [facility] Comment on above: Performed By: #### C MP, HSTROPN #### [facility] [place] [facility] [address] [address] [address] Tremayne Harrison Glucose [Mass/Vol] 145 mg/dL Critically high 74-106 T [facility] Comment on above: Performed By: #### C MP, HSTROPN #### [facility] [place] [facility] [address] [place] [address] Dr. Tremayne Harrison Potassium [Moles/Vol] 4.7 mmol/L Normal 3.5-5.1 [facility] Comment on above: Performed By: #### C MP, HSTROPN #### [facility] [place] [facility] [address] [place] [address] Dr. Tremayne Harrison Protein [Mass/Vol] 7.3 g/dL Normal 6.4-8.2 [facility] Comment on above: Performed By: #### C MP, HSTROPN #### [facility] [place] [facility] [address] [place] [address] Dr. Tremayne Harrison Sodium [Moles/Vol] 141 mmol/L Normal 136-145 [facility] Comment on above: Performed By: #### C MP, HSTROPN #### [facility] [place] [facility] [address] [place] [address] Dr. Tremayne Harrison Urea nitrogen [Mass/Vol] 15.0 mg/dL Normal 7.0-18.0 [facility] Comment on above: Performed By: #### C MP, HSTROPN #### [facility] [place] [facility] [address] [place] [address] Dr. Tremayne Harrison Urea nitrogen/Creatinine [Mass ratio] 13.0 mg/mg Normal [facility] Comment on above: Performed By: #### C MP, HSTROPN #### [facility] [place] [facility] [address] [place] [address] Dr. Tremayne Harrison TROPONIN, HIGH SENSITIVITYon 07-28-2022 HSTROP 10.9 pg/mL Normal 4.0-51.3 The [facility] [place] Comment on above: Result Comment: CUT- OFF POINTS HAVE BEEN ESTABLISHED BASED ON THE FOURTH UNIVERSAL DEFINITIONS OF MYOCARDIAL INFARCTION. THE UPPER REFERENCE LIMIT (URL) OF TROPONIN, DEFINED THE 99TH PERCENTILE OF cTnI DISTRIBUTION IN A REFERENCE POPULATION, HAS BEEN CONFIRMED THE DECISION THRESHOLD FOR [place] DIAGNOSIS. Performed By: #### C VONDA ORTIZTROPJaron #### [facility] [place] [facility] [address] [address] [address] Tremayne Harrison XR CHEST 1 Von 07-28-2022 XR CHEST 1 V EXAM: XR CHEST 1 V a t 1436 hours HISTORY: CHEST PAIN, UNSPECIFIED COMPARISON: 07/28/2019 TECHNIQUE: AP upright portable chest x-ray FINDINGS: The heart is borderline enlarged. Multiple sternal wire sutures and mediastinal clips are present. No acute infiltrate, effusion or pneumothorax is identified. The osseous structures are grossly intact. IMPRESSION: Borderline cardiac enlargement without evidence of cardiac decompensation. No focal infiltrate is identified. The overall appearance of the chest is essentially unchanged. Electronically authenticated by: PAOLO REYNA Date: 2022-07-28 15:13 Normal [facility] [place] GLYCOHEMOGLOBIN A1Con 2022 ADA RECOMMENDATION SEE BELOW Normal [facility] Comment on above: Result Comment: ADA RECOMMENDED LIMIT 4.0 - 6.0 ADA THERAPEUTIC TARGET < 7.0 ACTION SUGGESTED > 7.0 Performed By: #### A 1C #### [facility] [place] [facility] [address] [place] [address] Dr. Tremayne Harrison Glucose [Mass/Vol] 177 mg/dL Normal [facility] Comment on above: Performed By: #### A 1C #### [facility] [place] [facility] [address] [address] [address] Tremayne Harrison HbA1c (Bld) [Mass fraction] 7.8 % Critically high 4.5-6.2 [facility] Comment on above: Performed By: #### A 1C #### [facility] [place] [facility] [address] [place] [address] Dr. Tremayne Harrison Provider Letteron 07-15-2022 Provider Letter July 15, 2022 [address] [place] [address] PATO CORRAL 1960 Dear Pato , We have been trying to reach you with no success. It is important that you return our call regarding your referral from Dr. Llanos upon receiving this letter. Also, at the time of your call, please provide us with your current information. Thank you for your prompt attention to this matter. Sincerely, General Surgery [phone] Normal [facility] Patient Correspondenceon Patient Correspondence [id number] 0CD:127 Normal [facility] Physician Referralon 023 Physician Referral [id number] CD:127 Normal [facility] GLYCOHEMOGLOBIN A1Con 2022 ADA RECOMMENDATION SEE BELOW Normal [facility] Comment on above: Result Comment: ADA RECOMMENDED LIMIT 4.0 - 6.0 ADA THERAPEUTIC TARGET < 7.0 ACTION SUGGESTED > 7.0 Performed By: #### A 1C #### [facility] [place] [facility] [address] [address] [address] Tremayne Harrison Glucose [Mass/Vol] 214 mg/dL Normal [facility] Comment on above: Performed By: #### A 1C #### [facility] [place] [facility] [address] [address] [address] Tremayne Harrison HbA1c (Bld) [Mass fraction] 9.1 % Critically high 4.5-6.2 [facility] Comment on above: Performed By: #### A 1C #### [facility] [place] [facility] [address] [address] [address] Tremayne Harrison GLYCOHEMOGLOBIN A1Con 2021 ADA RECOMMENDATION SEE BELOW Normal [facility] Comment on above: Result Comment: ADA RECOMMENDED LIMIT 4.0 - 6.0 ADA THERAPEUTIC TARGET < 7.0 ACTION SUGGESTED > 7.0 Performed By: #### A 1C #### [facility] [place] [facility] [address] [place] [address] Dr. Tremayne Harrison Glucose [Mass/Vol] 223 mg/dL Normal [facility] Comment on above: Performed By: #### A 1C #### [facility] [place] [facility] [address] [address] [address] Tremayne Harrison HbA1c (Bld) [Mass fraction] 9.4 % Critically high 4.5-6.2 [facility] Comment on above: Performed By: #### A 1C #### [facility] [place] [facility] [address] [address] [address] Tremayne Harrison MG MAMM SCREEN 3D NELDA CADon 10-10-2021 MG MAMM SCREEN 3D NELDA CAD Patient: PATO CORRAL Exam Date: 10/10/2021 : 1960 Gender:F Ordering : DR GIANFRANCO LAU DHiral Admission #: [id number] Family : Order #: [id number] CLICK HERE TO VIEW EXAM RADIOLOGY REPORT PROCEDURE: MAMMOGRAM SCREENING 3D BILATERAL CAD COMPARISON: MG MAMM SCREEN 3D NELDA CAD, 10/07/2020. MG MAMM SCREEN NELDA W CAD, 04/10/2019. INDICATIONS: Screening mammography Calculator Name NCI Breast Cancer Risk Assessment Tool 5 Year Breast Cancer Risk 1.40% Lifetime Breast Cancer Risk 6.00% Personal Breast Cancer No Personal Ovarian Cancer No Treatments None Family Cancers Grandmother-maternal with liver cancer at age 69; Grandmother-paternal with colon cancer at age 72; Aunt-maternal with breast cancer at age 50; Aunt-maternal with breast cancer at age 63; Uncle-maternal with colon cancer at age 59. LOCATION: The [facility] [place] BREAST COMPOSITION: Scattered areas fibroglandular density. FINDINGS: DIAGNOSTIC CATEGORY 1--NEGATIVE. RIGHT BREAST: No significant suspicious finding. No significant change has occurred. LEFT BREAST: No significant suspicious finding. No significant change has occurred. RECOMMENDATIONS: ROUTINE MAMMOGRAM AND CLINICAL EVALUATION IN 12 MONTHS. PLEASE NOTE: A NORMAL MAMMOGRAM DOES NOT EXCLUDE THE POSSIBILITY OF BREAST CANCER. A CLINICALLY SUSPICIOUS PALPABLE LUMP SHOULD BE BIOPSIED. Dictated by: Isi Danielle M.D. on 10/10/2021 at 11:12 Approved by: Isi Danielle M.D. on 10/10/2021 at 11:14 Normal [facility] [place] MICROALBUMIN, RAND URon 07-2 mALB 23.1 mg/L Normal <=30.0 [facility] [place] Comment on above: Performed By: #### M ALBR ####[facility] [place] [id number] [place], [place] [address]. Tremayne Harrison PROF 14(COMP METB)on 022 Albumin [Mass/Vol] 3.2 g/dL Critically low 3.4-5.0 Th e [facility] [place] Comment on above: Performed By: #### C MP #### [facility] [place] [facility] [address] [address] [address] Tremayne Harrison Albumin/Globulin [Mass ratio] 0.9 {ratio} Normal [facility] Comment on above: Performed By: #### C MP #### [facility] [place] [facility] [address] [address] [address] Tremayne Harrison ALP [Catalytic activity/Vol] 103 U/L Normal 46-116 [facility] Comment on above: Performed By: #### C MP #### [facility] [place] [facility] [address] [address] [address] Tremayne Harrison ALT [Catalytic activity/Vol] 36 U/L Normal 14-59 [facility] Comment on above: Performed By: #### C MP #### [facility] [place] [facility] [address] [address] [address] Tremayne Harrison Anion gap [Moles/Vol] 11.8 mmol/L Normal [facility] Comment on above: Performed By: #### C MP #### [facility] [place] [facility] [address] [address] [address] Tremayne Harrison AST [Catalytic activity/Vol] 18 U/L Normal 15-37 [facility] Comment on above: Performed By: #### C MP #### [facility] [place] [facility] [address] [address] [address] Tremayne Harrison Bilirubin [Mass/Vol] 0.3 mg/dL Normal 0.2-1.0 [facility] Comment on above: Performed By: #### C MP #### [facility] [place] [facility] [address] [address] [address] Tremayne Harrison Calcium [Mass/Vol] 8.7 mg/dL Normal 8.5-10.1 [facility] Comment on above: Performed By: #### C MP #### [facility] [place] [facility] [address] [address] [address] Tremayne Harrison Chloride [Moles/Vol] 106 mmol/L Normal 98-107 [facility] Comment on above: Performed By: #### C MP #### [facility] [place] [facility] [address] [address] [address] Tremayne Harrison CO2 [Moles/Vol] 25.6 mmol/L Normal 21.0-32.0 [facility] Comment on above: Performed By: #### C MP #### [facility] [place] [facility] [address] [address] [address] Tremayne Harrison Creatinine [Mass/Vol] 1.09 mg/dL Critically high 0.55-1.02 [facility] Comment on above: Performed By: #### C MP #### [facility] [place] [facility] [address] [address] [address] Tremayne Harrison EGFR-AF THAI >60 Normal >=60 [facility] Comment on above: Performed By: #### C MP #### [facility] [place] [facility] [address] [address] [address] Tremayne Harrison EGFR-NON AF THAI 51 mL/min/1.73m2 Critically low >=60 [facility] Comment on above: Performed By: #### C MP #### [facility] [place] [facility] [address] [address] [address] Treamyne Harrison Globulin (S) [Mass/Vol] 3.6 g/dL Normal [facility] Comment on above: Performed By: #### C MP #### [facility] [place] [facility] [address] [address] [address] Tremayne Harrison Glucose [Mass/Vol] 210 mg/dL Critically high 74-106 [facility] Comment on above: Performed By: #### C MP #### [facility] [place] [facility] [address] [address] [address] Tremayne Harrison Potassium [Moles/Vol] 4.4 mmol/L Normal 3.5-5.1 [facility] Comment on above: Performed By: #### C MP #### [facility] [place] [facility] [address] [address] [address] Tremayne Harrison Protein [Mass/Vol] 6.8 g/dL Normal 6.4-8.2 [facility] Comment on above: Performed By: #### C MP #### [facility] [place] [facility] [address] [address] [address] Tremayne Harrison Sodium [Moles/Vol] 139 mmol/L Normal 136-145 [facility] Comment on above: Performed By: #### C MP #### [facility] [place] [facility] [address] [address] [address] Tremayne Harrison Urea nitrogen [Mass/Vol] 15.0 mg/dL Normal 7.0-18.0 [facility] Comment on above: Performed By: #### C MP #### [facility] [place] [facility] [address] [place] [address] Dr. Tremayne Harrison Urea nitrogen/Creatinine [Mass ratio] 13.8 mg/mg Normal [facility] Comment on above: Performed By: #### C MP #### [facility] [place] [facility] [address] [place] [address] Dr. Tremayne Harrison CARDIAC STRESS TESTon 2021 CARDIAC STRESS TEST The [place], [place] NAME: PATO CORRAL DATE OF : MEDICAL REC#: [id number] INFORMATICS COORDINATOR: [address] [facility] DATE: 08/18/2021 09:35:00 CLIENT TECHNOLOGIES SPECIALIST DATE: 08/18/2021 19:00 DICTATING PHYSICIAN: MARTINE MCINTOSH DICTATION DATE: 08/18/2021 12:00 CARDIAC STRESS TEST Requesting Physician: Procedure Date:08/18/2021 LEXISCAN STRESS TEST WITH MYOCARDIAL PERFUSION IMAGING Informed consent was obtained. Vital signs were obtained. Baseline ECG was obtained. The patient had an intravenous line secured. Initially, the patient exercised on the treadmill for a total of 1.53 minutes into stage 1 of the Tom protocol. However, the test had to be switched to a Lexiscan stress test due to the patient's inability to continue exercising on the treadmill and lack of reaching target heart rate. The patient was placed back on the bed and ECG was obtained. Lexiscan 0.4 mg was infused intravenously. Serial electrocardiographic monitoring was performed. The patient then went on to obtain myocardial perfusion images performed. Baseline heart rate was 67 BPM with maximal heart rate of 100 BPM, representing 63% of the maximal age predicted heart rate. Resting blood pressure was 146/96 and the maximum blood pressure was 180/100. Baseline ECG showed sinus rhythm with no ischemic changes. ECG during treadmill exercise portion of the test showed sinus rhythm with occasional PACs and sinus tachycardia with no ischemic changes. EKG following infusion of Lexiscan showed sinus rhythm with no ischemic changes and occasional PVCs. IMPRESSION: 1. Negative combination treadmill (submaximal exercise) and Lexiscan stress test for stress induced ischemic ECG changes. 2. Uncontrolled resting hypertension. 3. Myocardial perfusion images will be reported separately. Electronically Authenticated and Edited by: Martine Mcintosh MD on 08/24/2021 10:13 AM EDT IFC Signed and Approved by: DR MARTINE MCINTOSH 08/24/2021 10:13:00 Normal [facility] NM STRESS/REST MULTIon 08-18 NM STRESS/REST MULTI Patient: PATO CORRAL Exam Date: 08/18/2021 : 1960 Gender:F Ordering : RAJINDER MOHAMUD Admission #: [id number] Family : Order #: [id number] CLICK HERE TO VIEW EXAM RADIOLOGY REPORT PROCEDURE: RADIONUCLIDE IMAGING STRESS/REST MULTI COMPARISON: None. INDICATIONS: Coronary atherosclerosis TECHNIQUE: Exam Description: Stress/Rest one day protocol gated SPECT Rest Imagin.1 mCi Tc-99m Cardiolite IV on 08/18/2021 Stress Imaging 30.4 mCi Tc-99m Cardiolite IV on 08/18/2021 Exercise Protocol: 0.4 mg Lexiscan given IV Heart Rate (bpm): Rest: 67 Max: 100 PMHR: 63 Blood Pressure: Rest: 146/96 Max: 180/100 Symptoms: Rest and peak stress ECG findings were normal and the exercise portion of the study was normal per attending physician Dr. Mcintosh . For more details please see separate cardiac stress test report. FINDINGS: QUALITY OF STUDY: PERFUSION DEFECT: LOCATION: Basal anterior. Mid-anterior. SIZE: Small (1-2 segments). SEVERITY: Mild. TYPE: Persistent. WALL MOTION: Normal. LV SIZE: Normal. 59 mL. TID / TCD: None; 0.7 LVEF: Normal. Calculated EF 71%. SUMMARY: Myocardial perfusion imaging study has ABNORMAL findings. CONCLUSION: 1. Fixed defect in the anterior wall likely representing breast attenuation artifact 2. No reversible ischemia 3. Normal exercise test Dictated by: Art Cross MD on 08/18/2021 at 14:34 Approved by: Art Cross MD on 08/18/2021 at 14:36 Normal [facility] [place] Pulmonary Functionon 019 Pulmonary Function MR #: [id number] [facility] PT. Name: Pato Corral Date: 04/25/2018 Date of : 1960 Patient Type: I Pulmonary Function INTERPRETATION INDICATION: This is a 57-year-old female with a BMI of 32.7, who has a 25-pack year history of smoking, is currently smoking, and a question of dyspnea after any exertion. This is for preop evaluation. LUNG MECHANICS: Spirometry: There is a normal FEV1, normal FVC, and normal ratio. Normal expiratory flow volume loop. MVV is exactly what is expected for the degree of obstruction noted above and is normal. LUNG VOLUMES: Body box technique: Total lung capacity is normal. RV is normal. Slow vital capacity is normal, as is inspiratory capacity. Overall, normal. Diffusing capacity of lung for carbon monoxide. DLCO is mildly reduced with a normal alveolar volume and normal correction. Arterial blood gas on room air, pH and pCO2 are both normal. Normal ventilation. Oxygenation is adequate, but there is roughly double expected for age AA gradient. OVERALL IMPRESSION: Normal spirometry and lung volumes, with isolated decrease in diffusion capacity to a mild degree. This may be related to body habitus/obesity, but may also be related to pulmonary vascular occlusive disease, pulmonary hypertension (for example from nocturnal hypoxia) or congestive heart failure. The patient's risk for surgery would be that she would have increased need for oxygen requirement postoperatively. If this is a thoracotomy, approximately 25% of the FEV1 and FVC would be expected to be reduced postoperatively for 6-8 weeks. This is before accounting for lobectomy or otherwise. Electronically Signed by: Tierra Corral M.D. 05/16/2018 12:59 P Tierra Corral M.D. [facility] Date Dict: 05/13/2018/05:50 P/Tierra Corral M.D. Date Trans: 05/14/2018 04:38 A/emily [id number] cc: Gianfranco Lau D.O. [facility] [id number] Normal [facility] POC GLUCOSE LABon 05-03-2018 Glucose mass conc 223 mg/dL High 70-100 [facility] Comment on above: Performed By: #### 5 0103 #### [facility] [address] [place] [address], [place] Glucose mass conc 261 mg/dL High 70-100 [facility] Comment on above: Order Comment: No: D o not add to previous draw Performed By: #### 5 0103 #### [facility] [address] [place] [address], [place] Glucose mass conc 162 mg/dL High 70-100 [facility] Comment on above: Performed By: #### 5 0103 #### [facility] [address] [place] [address], [place] BASIC METABOLIC PANELon 04-15 Calcium mass conc 8.0 mg/dL Low 8.6-10.3 [facility] Comment on above: Order Comment: No: D o not add to previous draw Performed By: #### 5 0103 #### [facility] [address] [place] [address], [place] Chloride molar conc 100 mmol/L Normal 98-107 [facility] Comment on above: Order Comment: No: D o not add to previous draw Performed By: #### 5 0103 #### [facility] [address] [place] [address], [place] CO2 molar conc 29 mmol/L Normal 21-31 [facility] Comment on above: Order Comment: No: D o not add to previous draw Performed By: #### 5 0103 #### [facility] [address] [place] [address], [facility] Creatinine mass conc 0.74 mg/dL Normal 0.60-1.20 [facility] Comment on above: Order Comment: No: D o not add to previous draw Performed By: #### 5 0103 #### [facility] [address] [place] [address], [place] GFR/1.73 sq M predicted among blacks MDRD vol rate/area (S/P/Bld) mL/min/{1.73_m2} Normal >60 [facility] Comment on above: Order Comment: No: D o not add to previous draw Performed By: #### 5 0103 #### [facility] [address] [place] [address], [facility] GFR/1.73 sq M predicted among non-blacks MDRD vol rate/area (S/P/Bld) mL/min/{1.73_m2} Normal >60 [facility] Comment on above: Order Comment: No: D o not add to previous draw Performed By: #### 5 0103 #### [facility] [address] [place] [address], [place] Glucose mass conc 157 mg/dL High 70-100 [facility] Comment on above: Order Comment: No: D o not add to previous draw Performed By: #### 5 0103 #### [facility] [address] [place] [address], [place] Potassium molar conc 3.6 mmol/L Normal 3.5-5.1 [facility] Comment on above: Order Comment: No: D o not add to previous draw Performed By: #### 5 0103 #### [facility] [address] [place] [address], [place] Sodium molar conc 135 mmol/L Low 136-145 [facility] Comment on above: Order Comment: No: D o not add to previous draw Performed By: #### 5 0103 #### [facility] [address] [place] [address], [facility] Urea nitrogen mass conc 15 mg/dL Normal 7-25 [facility] Comment on above: Order Comment: No: D o not add to previous draw Performed By: #### 5 0103 #### [facility] [address] [facility] [place] [address] CBC COMPLETE BLOOD COUNTon 0 - Erythrocyte distribution width Ratio (RBC) 15.1 % High 11.5-15.0 [facility] Comment on above: Order Comment: No: D o not add to previous draw Performed By: #### 5 0103 #### [facility] [address] [facility] Hematocrit Volume Fraction (Bld) 23.7 % Low 36.0-45.0 [facility] Comment on above: Order Comment: No: D o not add to previous draw Performed By: #### 5 0103 #### [facility] [address] [facility]. [address] Hemoglobin mass conc (Bld) 8.0 g/dL Low 12.0-15.0 [facility] Comment on above: Order Comment: No: D o not add to previous draw Performed By: #### 5 0103 #### [facility] [address] [facility] [place] [address], [facility] MCH Entitic mass (RBC) 27.6 pg Normal 27.0-33.0 [facility] Comment on above: Order Comment: No: D o not add to previous draw Performed By: #### 5 0103 #### [facility] [address] [place] [address], [facility] MCHC mass conc (RBC) 33.8 g/dL Normal 32.0-35.0 [facility] Comment on above: Order Comment: No: D o not add to previous draw Performed By: #### 5 0103 #### [facility] [address] [place] [address], [facility] MCV Entitic volume (RBC) 81.7 fL Low 82.0-98.0 [facility] Comment on above: Order Comment: No: D o not add to previous draw Performed By: #### 5 0103 #### [facility] [address] [place] [address], [facility] Nucleated RBC/100 WBC Ratio (Bld) 0 % Normal 0-0 [facility] Comment on above: Order Comment: No: D o not add to previous draw Performed By: #### 5 0103 #### [facility] [address] [place] [address], [facility] PLAT CNT 151 10*3/uL Normal 150-400 [facility] Comment on above: Order Comment: No: D o not add to previous draw Performed By: #### 5 0103 #### [facility] [address] [place] [address], [facility] RBC #/vol (Bld) 2.90 10*6/uL Low 3.80-5.00 [facility] Comment on above: Order Comment: No: D o not add to previous draw Performed By: #### 5 0103 #### [facility] [address] [place] [address], [facility] WBC #/vol (Bld) 10.78 10*3/uL High 4.00-10.60 [facility] Comment on above: Order Comment: No: D o not add to previous draw Performed By: #### 5 0103 #### [facility] [address] [place] [address], [facility] MAGNESIUM BLOODon 05-02-2018 Magnesium mass conc 1.6 mg/dL Low 1.9-2.7 [facility] Comment on above: Order Comment: No: D o not add to previous draw Performed By: #### 5 3 #### [facility] [address] [facility] [place] [address], [place] POC GLUCOSE LABon 05-02-2018 Glucose mass conc 172 mg/dL High 70-100 [facility] Comment on above: Performed By: #### 5 0103 #### [facility] [address] [facility] [place] [address], [place] Glucose mass conc 203 mg/dL High 70-100 [facility] Comment on above: Performed By: #### 5 0103 #### [facility] [address] [facility] [place] [address], [place] Glucose mass conc 216 mg/dL High 70-100 [facility] Comment on above: Performed By: #### 5 0103 #### [facility] [address] [facility] [place] [address], [facility] Glucose mass conc 160 mg/dL High 70-100 [facility] Comment on above: Performed By: #### 5 0103 #### [facility] [address] [facility] [place] [address], [place] Glucose mass conc 105 mg/dL High 70-100 [facility] Comment on above: Performed By: #### 5 0103 #### [facility] [address] [place] [address], [facility] PORTABLE CHEST 1 VIEWon 04-15 PORTABLE CHEST 1 VIEW [facility] Department of Radiology [address] [place] [id number] ======== Patient Name: PATO CORRAL : 1960 Sex: F Age: Race: White Pt. Location: [id number] Patient Status: I Ordered Date: 05/02/2018 5:00:00 AM Completed Date: 05/02/2018 06:43 AM Requesting Provider: KAREN RUVALCABA Attending Provider: KAREN RUVALCABA Report Copy To: Signs & Symptoms: Post CABG History: Patient history not available Comments: R/O Atelectasis Exam: PORTABLE CHEST 1 VIEW ======== PORTABLE CHEST 1 VIEW 05/02/2018 6:43 AM EST SIGNS AND SYMPTOMS: Post CABG TECHNOLOGIST COMMENTS: shortness of breath QUESTION FOR THE RADIOLOGIST: R/O Atelectasis PROTOCOL: AP(PA) view was obtained. COMPARISON: The way FINDINGS: Heart is enlarged accentuated by AP technique and poor respiratory effort once again. There is lingular atelectasis. Remaining lung leung are clear. IMPRESSION: Left lingular atelectasis, unchanged. Electronically signed by:Antwon Groves. Transcribed by: [email or web address], User Resident: Electronically Signed by: ANTWON GROVES @ 05/02/2018 06:59 AM Normal [facility] Comment on above: Order Comment: No: D o not add to previous draw BASIC METABOLIC PANELon 04-15 Calcium mass conc 8.0 mg/dL Low 8.6-10.3 [facility] Comment on above: Order Comment: No: D o not add to previous draw Performed By: #### 5 0103 #### [facility] [address] [place] [address], [place] Chloride molar conc 103 mmol/L Normal 98-107 [facility] Comment on above: Order Comment: No: D o not add to previous draw Performed By: #### 5 0103 #### [facility] [address] [place] [address], [place] CO2 molar conc 27 mmol/L Normal 21-31 [facility] Comment on above: Order Comment: No: D o not add to previous draw Performed By: #### 5 0103 #### [facility] [address] [place] [address], [facility] Creatinine mass conc 0.84 mg/dL Normal 0.60-1.20 [facility] Comment on above: Order Comment: No: D o not add to previous draw Performed By: #### 5 0103 #### [facility] [address] [place] [address], [facility] GFR/1.73 sq M predicted among blacks MDRD vol rate/area (S/P/Bld) mL/min/{1.73_m2} Normal >60 [facility] Comment on above: Order Comment: No: D o not add to previous draw Performed By: #### 5 0103 #### [facility] [address] [place] [address], [facility] GFR/1.73 sq M predicted among non-blacks MDRD vol rate/area (S/P/Bld) mL/min/{1.73_m2} Normal >60 [facility] Comment on above: Order Comment: No: D o not add to previous draw Performed By: #### 5 0103 #### [facility] [address] [place] [address], [facility] Glucose mass conc 159 mg/dL High 70-100 [facility] Comment on above: Order Comment: No: D o not add to previous draw Performed By: #### 5 0103 #### [facility] [address] [place] [address], [place] Potassium molar conc 4.2 mmol/L Normal 3.5-5.1 [facility] Comment on above: Order Comment: No: D o not add to previous draw Performed By: #### 5 0103 #### [facility] [address] [place] [address], [place] Sodium molar conc 135 mmol/L Low 136-145 [facility] Comment on above: Order Comment: No: D o not add to previous draw Performed By: #### 5 0103 #### [facility] [address] [place] [address], [facility] Urea nitrogen mass conc 18 mg/dL Normal 7-25 [facility] Comment on above: Order Comment: No: D o not add to previous draw Performed By: #### 5 0103 #### [facility] [address] [facility]. [address] CBC COMPLETE BLOOD COUNTon 0 - Erythrocyte distribution width Ratio (RBC) 15.4 % High 11.5-15.0 [facility] Comment on above: Order Comment: No: D o not add to previous draw Performed By: #### 5 0103 #### [facility] [address] [facility] [address] Hematocrit Volume Fraction (Bld) 21.5 % Low 36.0-45.0 [facility] Comment on above: Order Comment: No: D o not add to previous draw Performed By: #### 5 0103 #### [facility] [address] [facility] [place] [address], [facility] Hemoglobin mass conc (Bld) 7.1 g/dL Low 12.0-15.0 [facility] Comment on above: Order Comment: No: D o not add to previous draw Performed By: #### 5 0103 #### [facility] [address] [place] [address], [facility] MCH Entitic mass (RBC) 27.7 pg Normal 27.0-33.0 [facility] Comment on above: Order Comment: No: D o not add to previous draw Performed By: #### 5 0103 #### [facility] [address] [place] [address], [facility] MCHC mass conc (RBC) 33.0 g/dL Normal 32.0-35.0 [facility] Comment on above: Order Comment: No: D o not add to previous draw Performed By: #### 5 0103 #### [facility] [address] MCV Entitic volume (RBC) 84.0 fL Normal 82.0-98.0 [facility] Comment on above: Order Comment: No: D o not add to previous draw Performed By: #### 5 0103 #### [facility] [address] Nucleated RBC/100 WBC Ratio (Bld) 0 % Normal 0-0 [facility] Comment on above: Order Comment: No: D o not add to previous draw Performed By: #### 5 0103 #### [facility] [address] PLAT CNT 102 10*3/uL Low 150-400 [facility] Comment on above: Order Comment: No: D o not add to previous draw Performed By: #### 5 0103 #### [facility] [address] [facility]. [address] RBC #/vol (Bld) 2.56 10*6/uL Low 3.80-5.00 [facility] Comment on above: Order Comment: No: D o not add to previous draw Performed By: #### 5 0103 #### [facility] [address] [place] [address], [facility] WBC #/vol (Bld) 11.57 10*3/uL High 4.00-10.60 [facility] Comment on above: Order Comment: No: D o not add to previous draw Performed By: #### 5 0103 #### [facility] [address] [place] [address], [facility] HEMOGLOBINon 05-01-2018 Hemoglobin mass conc (Bld) 7.3 g/dL Low 12.0-15.0 [facility] Comment on above: Order Comment: No: D o not add to previous draw Performed By: #### 5 0103 #### [facility] [address] [place] [address], [facility] POC GLUCOSE LABon 05-01-2018 Glucose mass conc 253 mg/dL High 70-100 [facility] Comment on above: Performed By: #### 5 0103 #### [facility] [address] [place] [address], [facility] Glucose mass conc 180 mg/dL High 70-100 [facility] Comment on above: Performed By: #### 5 0103 #### [facility] [address] [place] [address], [facility] Glucose mass conc 238 mg/dL High 70-100 [facility] Comment on above: Performed By: #### 5 0103 #### [facility] [address] [place] [address], [facility] Glucose mass conc 161 mg/dL High 70-100 [facility] Comment on above: Performed By: #### 5 0103 #### [facility] [address] [place] [address], [facility] PORTABLE CHEST 1 VIEWon 04-15 PORTABLE CHEST 1 VIEW [facility] Department of Radiology [address] [place] [phone] ======== Patient Name: PATO CORRAL : 1960 Sex: F Age: Race: White Pt. Location: [id number] Patient Status: I Ordered Date: 05/01/2018 5:00:00 AM Completed Date: 05/01/2018 05:25 AM Requesting Provider: KAREN RUVALCABA Attending Provider: KAREN RUVALCABA Report Copy To: Signs & Symptoms: Post OP History: Patient history not available Comments: R/O Atelectasis Exam: PORTABLE CHEST 1 VIEW ======== PORTABLE CHEST 1 VIEW 05/01/2018 5:25 AM EST SIGNS AND SYMPTOMS: Post OP TECHNOLOGIST COMMENTS: shortness of breath , post op CABG QUESTION FOR THE RADIOLOGIST: R/O Atelectasis PROTOCOL: AP(PA) view was obtained. COMPARISON: Chest radiograph from earlier 2018, April 29, 2018. FINDINGS: Stable postsurgical changes to the chest. The cardiomediastinal silhouette is enlarged and unchanged. Perihilar pulmonary vascular congestion. No pleural effusion. No pneumothorax. Perihilar hazy opacities. Interval improvement of left lower lung aeration. IMPRESSION: Perihilar pulmonary opacities which may represent edema. Interval improvement of aeration of the left lower lung. Stable postsurgical changes to the chest. Approved by:Macario Patel on 05/01/2018 5:58 AM EST. I, Jerry Charles, have reviewed the images and report and concur with these findings. Electronically signed by:Jerry Charles. Transcribed by: [email or web address], User Resident: MACARIO PATEL Electronically Signed by: JERRY CHARLES @ 05/01/2018 01:37 PM I personally read this/these film(s) with this resident Normal [facility] Comment on above: Order Comment: No: D o not add to previous draw RBC'S 1 UNITon 05-01-2018 CROSSMATCH INTERP 1 COMP Normal [facility] Comment on above: Performed By: #### 5 0103 #### [facility] [address] [place] [address], [facility] Protein mass conc 685 g/dL Normal [facility] Comment on above: Performed By: #### 5 0103 #### [facility] [address] [place] [address], [facility] Protein mass conc PT Normal [facility] Comment on above: Result Comment: Resu lt changed by IF on 05/01/2018 10:28. The previous value was XM. Result changed by IF on 05/02/2018 00:30. The previous value was IS. Performed By: #### 5 0103 #### [facility] [address] [place] [address], [facility] UNIT ABO 1 O Normal [facility] Comment on above: Performed By: #### 5 0103 #### [facility] [address] [place] [address], [facility] UNIT ID 1 [id number] Normal [facility] Comment on above: Performed By: #### 5 0103 #### [facility] [address] [place] [address], [facility] UNIT RH 1 Positive Normal [facility] Comment on above: Performed By: #### 5 0103 #### [facility] [address] [place] [address], [facility] TYPE AND SCREENon 05-01-2018 ABO INTERPRETATION O Normal [facility] Comment on above: Performed By: #### 5 0103 #### [facility] [address] [place] [address], [facility] RH INTERPRETATION Positive Normal [facility] Comment on above: Performed By: #### 5 0103 #### [facility] [address] [place] [address], [facility] BASIC METABOLIC PANELon 04-15 Calcium mass conc 8.2 mg/dL Low 8.6-10.3 [facility] Comment on above: Order Comment: No: D o not add to previous draw Performed By: #### 5 0103 #### [facility] [address] [place] [address], [facility] Chloride molar conc 110 mmol/L High 98-107 [facility] Comment on above: Order Comment: No: D o not add to previous draw Performed By: #### 5 0103 #### [facility] [address] [place] [address], [facility] CO2 molar conc 26 mmol/L Normal 21-31 [facility] Comment on above: Order Comment: No: D o not add to previous draw Performed By: #### 5 0103 #### [facility] [address] [place] [address], [facility] Creatinine mass conc 0.76 mg/dL Normal 0.60-1.20 [facility] Comment on above: Order Comment: No: D o not add to previous draw Performed By: #### 5 0103 #### [facility] [address] [place] [address], [place] GFR/1.73 sq M predicted among blacks MDRD vol rate/area (S/P/Bld) mL/min/{1.73_m2} Normal >60 [facility] Comment on above: Order Comment: No: D o not add to previous draw Performed By: #### 5 0103 #### [facility] [address] [place] [address], [facility] GFR/1.73 sq M predicted among non-blacks MDRD vol rate/area (S/P/Bld) mL/min/{1.73_m2} Normal >60 [facility] Comment on above: Order Comment: No: D o not add to previous draw Performed By: #### 5 0103 #### [facility] [address] [place] [address], [place] Glucose mass conc 108 mg/dL High 70-100 [facility] Comment on above: Order Comment: No: D o not add to previous draw Performed By: #### 5 0103 #### [facility] [address] [place] [address], [place] Potassium molar conc 4.5 mmol/L Normal 3.5-5.1 [facility] Comment on above: Order Comment: No: D o not add to previous draw Performed By: #### 5 0103 #### [facility] [address] Sodium molar conc 140 mmol/L Normal 136-145 [facility] Comment on above: Order Comment: No: D o not add to previous draw Performed By: #### 5 0103 #### [facility] [address] [facility]. [address] Urea nitrogen mass conc 16 mg/dL Normal 7-25 [facility] Comment on above: Order Comment: No: D o not add to previous draw Performed By: #### 5 0103 #### [facility] [address] CBC COMPLETE BLOOD COUNTon 0 - Erythrocyte distribution width Ratio (RBC) 15.8 % High 11.5-15.0 [facility] [facility] Comment on above: Order Comment: No: D o not add to previous draw Performed By: #### 5 3 #### [facility] [address] [facility] Hematocrit Volume Fraction (Bld) 24.5 % Low 36.0-45.0 [facility] Comment on above: Order Comment: No: D o not add to previous draw Performed By: #### 5 0103 #### [facility] [address] [facility]. [address] Hemoglobin mass conc (Bld) 8.0 g/dL Low 12.0-15.0 [facility] Comment on above: Order Comment: No: D o not add to previous draw Performed By: #### 5 0103 #### [facility] [address] [place] [address], [facility] IMM PLATELET FRAC 1.6 % Normal 0.8-6.3 [facility] Comment on above: Order Comment: No: D o not add to previous draw Performed By: #### 5 0103 #### [facility] [address] MCH Entitic mass (RBC) 27.8 pg Normal 27.0-33.0 [facility] Comment on above: Order Comment: No: D o not add to previous draw Performed By: #### 5 0103 #### [facility] [address] [place] [address], [facility] MCHC mass conc (RBC) 32.7 g/dL Normal 32.0-35.0 [facility] Comment on above: Order Comment: No: D o not add to previous draw Performed By: #### 5 3 #### [facility] [address] MCV Entitic volume (RBC) 85.1 fL Normal 82.0-98.0 [facility] Comment on above: Order Comment: No: D o not add to previous draw Performed By: #### 5 3 #### [facility] [address] Nucleated RBC/100 WBC Ratio (Bld) 0 % Normal 0-0 [facility] Comment on above: Order Comment: No: D o not add to previous draw Performed By: #### 5 3 #### [facility] [address] [facility] [place] [address], [facility] PLAT CNT 98 10*3/uL Low 150-400 [facility] Comment on above: Order Comment: No: D o not add to previous draw Performed By: #### 5 3 #### [facility] [address] [address], [facility] RBC #/vol (Bld) 2.88 10*6/uL Low 3.80-5.00 [facility] Comment on above: Order Comment: No: D o not add to previous draw Performed By: #### 5 3 #### [facility] [address] [facility] [place] [address], [facility] WBC #/vol (Bld) 14.45 10*3/uL High 4.00-10.60 [facility] Comment on above: Order Comment: No: D o not add to previous draw Performed By: #### 5 0103 #### [facility] [address] [place] [address], [facility] MAGNESIUM BLOODon 04-30-2018 Magnesium mass conc 2.2 mg/dL Normal 1.9-2.7 [facility] Comment on above: Performed By: #### 5 0103 #### [facility] [address] [facility] [place] [address], [facility] POC GLUCOSE LABon 04-30-2018 Glucose mass conc 135 mg/dL High 70-100 [facility] Comment on above: Performed By: #### 5 0103 #### [facility] [address] [place] [address], [facility] Glucose mass conc 201 mg/dL High 70-100 [facility] Comment on above: Performed By: #### 5 0103 #### [facility] [address] [facility] [place] [address], [facility] Glucose mass conc 224 mg/dL High 70-100 [facility] Comment on above: Performed By: #### 5 0103 #### [facility] [address] [place] [address], [facility] Glucose mass conc 134 mg/dL High 70-100 [facility] Comment on above: Performed By: #### 5 0103 #### [facility] [address] [place] [address], [place] Glucose mass conc 113 mg/dL High 70-100 [facility] Comment on above: Performed By: #### 5 0103 #### [facility] [address] [place] [address], [facility] Glucose mass conc 96 mg/dL Normal 70-100 [facility] Comment on above: Performed By: #### 5 0103 #### [facility] [address] [facility] [place] [address], [facility] Glucose mass conc 111 mg/dL High 70-100 [facility] Comment on above: Performed By: #### 5 0103 #### [facility] [address] [facility] [place] [address], [facility] Glucose mass conc 114 mg/dL High 70-100 [facility] Comment on above: Performed By: #### 5 0103 #### [facility] [address] [facility] [place] [address], [facility] Glucose mass conc 137 mg/dL High 70-100 [facility] Comment on above: Performed By: #### 5 0103 #### [facility] [address] [place] [address], [facility] PORTABLE CHEST 1 VIEWon 04-15 PORTABLE CHEST 1 VIEW [facility] Department of Radiology [address] [place] [id number] ======== Patient Name: PATO CORRAL : 1960 Sex: F Age: Race: White Pt. Location: [id number] Patient Status: I Ordered Date: 04/30/2018 5:00:00 AM Completed Date: 04/30/2018 06:24 AM Requesting Provider: KAREN RUVALCABA Attending Provider: FELIPE HUGO Report Copy To: Signs & Symptoms: Post CABG History: Patient history not available Comments: R/O Atelectasis, cbc Exam: PORTABLE CHEST 1 VIEW ======== PORTABLE CHEST 1 VIEW 04/30/2018 6:24 AM EST SIGNS AND SYMPTOMS: Post CABG TECHNOLOGIST COMMENTS: Post CABG. pt. is SOB QUESTION FOR THE RADIOLOGIST: R/O Atelectasis, cbc PROTOCOL: AP(PA) view was obtained. COMPARISON: Chest radiograph April 29, 2018 FINDINGS: Cardiomediastinal silhouette appears slightly enlarged from prior study with increase in pulmonary vasculature. Trachea is midline. Sternotomy wires are intact. Interval removal of right-sided IJ Andover-Jen catheter. No significant change in positioning of bilateral chest tubes. Progression of left lower lobe airspace disease with trace bilateral pleural effusions no pneumothorax. IMPRESSION: * Progression of left lower lobe airspace disease, concerning for developing pneumonia and/or worsening atelectasis. Similar area in the right upper lobe/hilum which could represent worsening pulmonary vasculature or small pneumonia. * Cardiomediastinal silhouette appears slightly enlarged from prior study with increase in pulmonary vasculature. * Interval removal of right-sided Andover-Jen catheter from prior study. Approved by:Rudy Quiñones on 04/30/2018 1:14 PM EST. I, Jerry Charles, have reviewed the images and report and concur with these findings. Electronically signed by:Jerry Charles. Transcribed by: [email or web address], User Resident: RUDY [email or web address] Electronically Signed by: JERRY CHARLES @ 04/30/2018 01:32 PM I personally read this/these film(s) with this resident Normal [facility] Comment on above: Order Comment: No: D o not add to previous draw ARTERIAL BLOOD GAS WITH ICAo n 04-29-2018 BASE EXCESS -1 mmol/L Normal -2-2 [facility] Comment on above: Performed By: #### 5 0103 #### [facility] [address] [place] [address], [facility] [employer] [place] Normal [facility] Comment on above: Performed By: #### 5 0103 #### [facility] [address] [place] [address], [facility] HCO3 molar conc (Bld) 25 mmol/L Normal 23-27 [facility] Comment on above: Performed By: #### 5 0103 #### [facility] [address] [place] [address], [facility] IONIZED CALCIUM 1.23 mmol/L Normal 1.13-1.32 [facility] Comment on above: Performed By: #### 5 0103 #### [facility] [address] [place] [address], [facility] LPM 4.0 LPM Normal 0.5-20.0 [facility] Comment on above: Performed By: #### 5 0103 #### [facility] [address] [place] [address], [facility] Oxygen ppres (Bld) 85 mm[Hg] Normal 75-100 [facility] Comment on above: Performed By: #### 5 0103 #### [facility] [address] [place] [address], [facility] Oxygen saturation in Blood 96.2 % Normal 94.0-97.0 [facility] Comment on above: Performed By: #### 5 3 #### [facility] [address] [place] [address], [facility] PCO2 48 mmHg High 35-45 [facility] Comment on above: Performed By: #### 5 0103 #### [facility] [address] [place] [address], [place] pH (Bld) 7.33 [pH] Low 7.35-7.45 [facility] Comment on above: Performed By: #### 5 3 #### [facility] [address] [place] [address], [place] BASE EXCESS -2 mmol/L Normal -2-2 [facility] Comment on above: Performed By: #### 5 3 #### [facility] [address] [place] [address], [facility] [employer] MV Normal [facility] Comment on above: Performed By: #### 102 #### [facility] [address] [place] [address], [place] FIO2 40 % Normal 21-100 [facility] Comment on above: Performed By: #### 5 102 #### [facility] [address] [place] [address], [facility] HCO3 molar conc (Bld) 24 mmol/L Normal 23-27 [facility] Comment on above: Performed By: #### 102 #### [facility] [address] [place] [address], [facility] IONIZED CALCIUM 1.18 mmol/L Normal 1.13-1.32 [facility] Comment on above: Performed By: #### 102 #### [facility] [address] [place] [address], [place] MIN VOLUME 7.6 Normal [facility] Comment on above: Performed By: #### 102 #### [facility] [address] [place] [address], [facility] MODALITY SPONT Normal [facility] Comment on above: Performed By: #### 102 #### [facility] [address] [place] [address], [facility] Oxygen ppres (Bld) 95 mm[Hg] Normal 75-100 [facility] Comment on above: Performed By: #### 102 #### [facility] [address] [place] [address], [facility] Oxygen saturation in Blood 95.2 % Normal 94.0-97.0 [facility] Comment on above: Performed By: #### 102 #### [facility] [address] [place] [address], [facility] PCO2 44 mmHg Normal 35-45 [facility] Comment on above: Performed By: #### 5 0103 #### [facility] [address] [place] [address], [facility] PEEP 8.0 CMH20 Normal [facility] Comment on above: Performed By: #### 5 0103 #### [facility] [address] [place] [address], [place] pH (Bld) 7.34 [pH] Low 7.35-7.45 [facility] Comment on above: Performed By: #### 5 0103 #### [facility] [address] [place] [address], [facility] PRESSURE SUPPORT 10 Normal [facility] Comment on above: Performed By: #### 5 0103 #### [facility] [address] [place] [address], [facility] BASIC METABOLIC PANELon - Calcium mass conc 7.8 mg/dL Low 8.6-10.3 [facility] Comment on above: Order Comment: No: D o not add to previous draw Performed By: #### 5 0103 #### [facility] [address] [place] [address], [facility] Chloride molar conc 118 mmol/L High 98-107 [facility] Comment on above: Order Comment: No: D o not add to previous draw Performed By: #### 5 0103 #### [facility] [address] [place] [address], [facility] CO2 molar conc 26 mmol/L Normal 21-31 [facility] Comment on above: Order Comment: No: D o not add to previous draw Performed By: #### 5 0103 #### [facility] [address] [place] [address], [facility] Creatinine mass conc 0.92 mg/dL Normal 0.60-1.20 [facility] Comment on above: Order Comment: No: D o not add to previous draw Performed By: #### 5 0103 #### [facility] [address] [place] [address], [place] GFR/1.73 sq M predicted among blacks MDRD vol rate/area (S/P/Bld) mL/min/{1.73_m2} Normal >60 [facility] Comment on above: Order Comment: No: D o not add to previous draw Performed By: #### 5 0103 #### [facility] [address] [place] [address], [place] GFR/1.73 sq M predicted among non-blacks MDRD vol rate/area (S/P/Bld) mL/min/{1.73_m2} Normal >60 [facility] Comment on above: Order Comment: No: D o not add to previous draw Performed By: #### 5 0103 #### [facility] [address] [place] [address], [place] Glucose mass conc 101 mg/dL High 70-100 [facility] Comment on above: Order Comment: No: D o not add to previous draw Performed By: #### 5 0103 #### [facility] [address] [place] [address], [place] Potassium molar conc 4.1 mmol/L Normal 3.5-5.1 [facility] Comment on above: Order Comment: No: D o not add to previous draw Performed By: #### 5 0103 #### [facility] [address] [place] [address], [place] Sodium molar conc 149 mmol/L High 136-145 [facility] Comment on above: Order Comment: No: D o not add to previous draw Performed By: #### 5 0103 #### [facility] [address] [place] [address], [place] Urea nitrogen mass conc 19 mg/dL Normal 7-25 [facility] Comment on above: Order Comment: No: D o not add to previous draw Performed By: #### 5 0103 #### [facility] [address] [place] [address], [facility] CARDIAC MAGNESIUM BLOODon Magnesium mass conc 2.0 mg/dL Normal 1.9-2.7 [facility] Comment on above: Performed By: #### 5 0103 #### [facility] [address] [place] [address], [facility] CBC COMPLETE BLOOD COUNTon 0 04-29-2018 Erythrocyte distribution width Ratio (RBC) 15.6 % High 11.5-15.0 [facility] Comment on above: Order Comment: No: D o not add to previous draw Performed By: #### 5 0103 #### [facility] [address] Hematocrit Volume Fraction (Bld) 23.3 % Low 36.0-45.0 [facility] Comment on above: Order Comment: No: D o not add to previous draw Performed By: #### 5 0103 #### [facility] [address] Hemoglobin mass conc (Bld) 7.9 g/dL Low 12.0-15.0 [facility] Comment on above: Order Comment: No: D o not add to previous draw Performed By: #### 5 0103 #### [facility] [address] [place] [address], [facility] MCH Entitic mass (RBC) 27.4 pg Normal 27.0-33.0 [facility] Comment on above: Order Comment: No: D o not add to previous draw Performed By: #### 5 0103 #### [facility] [address] [place] [address], [facility] MCHC mass conc (RBC) 33.9 g/dL Normal 32.0-35.0 [facility] Comment on above: Order Comment: No: D o not add to previous draw Performed By: #### 5 0103 #### [facility] [address] [place] [address], [facility] MCV Entitic volume (RBC) 80.9 fL Low 82.0-98.0 [facility] Comment on above: Order Comment: No: D o not add to previous draw Performed By: #### 5 0103 #### [facility] [address] [place] [address], [facility] Nucleated RBC/100 WBC Ratio (Bld) 0 % Normal 0-0 [facility] Comment on above: Order Comment: No: D o not add to previous draw Performed By: #### 5 0103 #### [facility] [address] [facility] [place] [address], [facility] PLAT CNT 126 10*3/uL Low 150-400 [facility] Comment on above: Order Comment: No: D o not add to previous draw Performed By: #### 5 0103 #### [facility] [address] [facility] [place] [address], [facility] RBC #/vol (Bld) 2.88 10*6/uL Low 3.80-5.00 [facility] Comment on above: Order Comment: No: D o not add to previous draw Performed By: #### 5 0103 #### [facility] [address] [place] [address], [facility] WBC #/vol (Bld) 10.49 10*3/uL Normal 4.00-10.60 [facility] Comment on above: Order Comment: No: D o not add to previous draw Performed By: #### 5 0103 #### [facility] [address] [facility] [place] [address], [facility] COOXIMETRYon 04-29-2018 COHB 2 % Normal [facility] Comment on above: Performed By: #### 5 0103 #### [facility] [address] [place] [address], [facility] METHB 1 % Normal [facility] Comment on above: Performed By: #### 5 0103 #### [facility] [address] Oxygen saturation in Blood 58.9 % Low 60.0-80.0 [facility] Comment on above: Performed By: #### 5 0103 #### [facility] [address] [place] [address], [facility] THB 7.9 g/dL Low 12.0-15.0 [facility] Comment on above: Performed By: #### 5 0103 #### [facility] [address] HEMOGLOBINon 04-29-2018 Hemoglobin mass conc (Bld) 8.8 g/dL Low 12.0-15.0 [facility] Comment on above: Order Comment: No: D o not add to previous draw Performed By: #### 5 0103 #### [facility] [address] MAGNESIUM BLOODon 04-29-2018 Magnesium mass conc 2.3 mg/dL Normal 1.9-2.7 [facility] Comment on above: Performed By: #### 5 0103 #### [facility] [address] Operative Reporton 9 Operative Report MR#: [id number] I [facility] Pt. Name: Pato Corral Room #: [id number] Discharge Date: Birthdate: 1960 OPERATIVE REPORT DATE OF SURGERY: 04/28/2018 SURGEON: Karen Ruvalcaba MD ASSISTANTS: 1. Neeraj Jimenes MD, resident. 2. MICHELLE Hernandez. ANESTHESIOLOGIST: Dr. Miranda. ANESTHESIA: General anesthesia with single-lumen endotracheal tube. PREOPERATIVE DIAGNOSES: 1. Multivessel coronary artery disease. 2. Unstable angina. 3. Diabetes mellitus. 4. Hypertension. 5. Tobacco abuse. POSTOPERATIVE DIAGNOSES: 1. Multivessel coronary artery disease. 2. Unstable angina. 3. Diabetes mellitus. 4. Hypertension. 5. Tobacco abuse. OPERATIONS PERFORMED: 1. Sternotomy. 2. Endoscopic harvest of left greater saphenous vein and preparation for anastomosis. 3. Left internal thoracic artery takedown and preparation for anastomosis. 4. Establishment of temporary hypothermic extracorporeal circulation. 5. Blood cardioplegic arrest of the heart and protection of the myocardium. 6. Coronary artery bypass grafting x4 with grafting of the left internal thoracic artery to the distal left anterior descending coronary artery. 7. Saphenous vein graft into the 1st marginal branch of the circumflex coronary artery. 8. Saphenous vein graft into the posterior descending coronary artery. 9. Saphenous vein graft into the distal right coronary artery. 10. Closure of sternotomy. 11. A transesophageal echocardiogram performed by the anesthesia staff. INDICATION FOR OPERATION: This is a 57-year-old lady, who has been having intermittent chest pain on exertion. She had a stress test and during the stress test she developed chest pain. She subsequently had a cardiac catheterization performed and this showed 85% stenosis of the proximal right coronary artery, 95% stenosis of the posterior descending coronary artery, and 50% stenosis of the left main coronary artery, 90% stenosis of the proximal LAD, 50% stenosis of the circumflex coronary artery, and 99% stenosis of the obtuse marginal branch. She had an echocardiogram which showed ejection fraction of 60% with no significant valvular abnormalities. She was referred for consideration of myocardial revascularization but with coronary artery bypass grafting. The patient was evaluated and was found to be an acceptable candidate for CABG operation, and informed consent was obtained. COMPLICATIONS: None. DRAINS: Four 19-Chilean Jluis drains with 1 in the left pleural space, 1 in the right pleural space, and 2 in the mediastinum. 10F MARCELA drain to left thigh. PACING WIRES: 1 bipolar ventricular epicardial pacing wire, 1 right atrial pacing wire, and 1 ground wire. SPECIMENS: None. COMPLICATIONS: None. FINDINGS: There was preserved global systolic ventricular function. The left internal thoracic artery was of adequate size and caliber, and had a good flow. The left greater saphenous vein was slightly on the smaller size, but was satisfactory. The LAD was a 1.75 mm vessel and had areas of eccentric plaque. The marginal branch of the circumflex coronary artery was a 1.75 mm vessel and also had areas of eccentric plaque. The distal right coronary artery was a 2 mm vessel and had areas of eccentric plaque. The posterior descending coronary artery was a 1.25 mm vessel and had areas of eccentric plaque. The patient was easily from cardiopulmonary bypass. The intraoperative TRINIDAD at the conclusion of the procedure showed preserved global systolic ventricular function. OPERATIVE PROCEDURE: The patient was brought to the operating room, was placed on the operating table in supine position. Proper patient identification was performed. Monitoring lines including radial arterial line, right internal jugular Andover-Jen catheter, and Strickland catheter were placed. General anesthesia was induced by the Anesthesia staff with single-lumen endotracheal tube in place. Prophylactic intravenous antibiotic was administered. The patient was then prepped and draped in routine fashion. A time-out was observed. Endoscopic harvest of the left greater saphenous vein was then performed and the vein subsequently prepared for anastomosis. Simultaneously, a median sternotomy was performed. The left internal thoracic artery was then dissected off the left chest wall using cautery technique. Of note is that the left lung on its anterolateral aspect had adhesions, which was in a generalized distribution. 5000 units of heparin was then administered intravenously and after allowing adequate time for its circulation, the distal end of the mammary artery was then clamped and the mammary artery divided. The stump was ligated with silk suture. The mammary artery was of adequate size and caliber, and had a good flow. The pericardium was then incised longitudinally in the midline and a pericardial well was established. Full dose heparin was then administered intravenously. The ascending aorta was then cannulated and a dual stage venous cannula placed in the right atrium. Antegrade aortic cardioplegia cannula was also placed. After ensuring adequate ACT, cardiopulmonary bypass was then commenced. The ascending aorta was then cross clamped and cold blood cardioplegia was then administered antegrade achieving complete cardiac standstill. Throughout the procedure, intermittent aliquots of cardioplegia were administered both antegrade and down the vein grafts. The heart was then positioned and a 5 mm arteriotomy was then made in the 1st marginal branch of the circumflex coronary artery and 1st segment of the long saphenous vein was then constructed in an end-to-side fashion with running 7-0 Prolene suture. An aortotomy was then made on the ascending aorta with a 4 mm punch and the proximal anastomosis of the vein graft was then constructed with running 6-0 Prolene suture. The heart was then repositioned and a 5 mm arteriotomy was then made in the posterior descending coronary artery and the 2nd segment of the long saphenous vein was then constructed in an end-to-side fashion with running 7-0 Prolene suture. The heart was then repositioned and a 5 mm arteriotomy was then made in the distal right coronary artery and the 3rd segment of the long saphenous vein was then constructed in an end-to-side fashion with running 7-0 Prolene suture. An aortotomy was then made on the ascending aorta with a 4 mm punch and the proximal anastomosis of the vein graft to the distal right coronary artery was then constructed in an end-to-side fashion with running 6-0 Prolene suture. A longitudinal venotomy was then made on the vein graft to the distal right coronary artery and the proximal end of the vein graft to the PDA was then constructed in an end-to-side fashion to the venotomy on the vein graft to the distal right coronary artery. The heart was then repositioned. The left internal thoracic artery was then fashioned and tailored, and a 5 mm arteriotomy was then made in the distal LAD and the left internal thoracic artery was then constructed to the LAD in an end-to-side fashion with running 7-0 Prolene suture. The mammary pedicle was secured to the epicardium with interrupted 6-0 Prolene suture. Warm blood was then administered antegrade and the aortic cross-clamp was then removed. The vein grafts were de-aired and the heart was initially in fine ventricular fibrillation and the heart was defibrillated with 20 joules of energy with resumption of spontaneous cardiac action in sinus rhythm with rates in the low 70s per minute. Epicardial pacing wires were led from the right ventricle and from the right atrium and brought out and secured to the skin with silk suture. A ground wire was also placed. Atrioventricular pacing was then commenced at a rate of 80 per minute. Ventilation was then initiated and the patient was then weaned from cardiopulmonary bypass. Intraoperative TRINIDAD showed preserved global systolic ventricular function. All the cannulas and catheters were then removed. Hemostasis was checked and was secured. Four 19-Chilean Jluis drains were then brought into the field, 1 placed in the left pleural space, 1 in the right pleural space, and 2 in the mediastinum, and they were brought out through separate stab incisions and secured to the chest wall with silk sutures. The sternum was then closed with combination of interrupted and [id number] stainless steel wires. The soft tissues were then approximated in anatomic layers with absorbable sutures and the subcuticular absorbable sutures was then placed to close the skin. Sterile dressings were then applied in the leg incision. The left upper thigh vein harvest incision which had been extended for about 3 cm for hematoma evacuation and bleeding control was then explored, was irrigated out. Hemostasis was then checked and was secured, and a 10-Chilean Jluis drain was then placed in the thigh region of the subcutaneous tunnel, was then brought out through separate stab incisions and secured to the chest wall. The wounds in the left lower extremity at the sites of the saphenous vein harvest were then closed in layers with absorbable sutures. A Kerlix wrap as well as an Nestor wrap was then placed circumferentially on the left lower extremity. The patient was then transferred in stable condition on small doses of inotropes on ventilator support to the CICU. Instrument and sponge counts were correct x2. Electronically Signed by: Karen Ruvalcaba MD 05/08/2018 10:07 A Karen Ruvalcaba MD Date Dict: 04/28/2018/09:03 P/Karen Ruvalcaba MD Date Trans: 04/29/2018 05:36 A/emily [id number] cc: Gianfranco Lau D.O. [address] [facility] Nicolas bakari [facility] [address] Normal [facility] POC GLUCOSE LABon 04-29-2018 Glucose mass conc 129 mg/dL High 70-100 [facility] Comment on above: Performed By: #### 5 3 #### [facility] [address] [place] [address], [place] Glucose mass conc 190 mg/dL High 70-100 [facility] Comment on above: Performed By: #### 5 3 #### [facility] [address] [place] [address], [place] Glucose mass conc 107 mg/dL High 70-100 [facility] Comment on above: Performed By: #### 5 0103 #### [facility] [address] [place] [address], [place] Glucose mass conc 94 mg/dL Normal 70-100 [facility] Comment on above: Performed By: #### 5 0103 #### [facility] [address] [place] [address], [place] Glucose mass conc 143 mg/dL High 70-100 [facility] Comment on above: Performed By: #### 5 0103 #### [facility] [address] [place] [address], [place] Glucose mass conc 136 mg/dL High 70-100 [facility] Comment on above: Performed By: #### 0103 #### [facility] [address] [place] [address], [place] Glucose mass conc 182 mg/dL High 70-100 [facility] Comment on above: Performed By: #### 0103 #### [facility] [address] [place] [address], [place] Glucose mass conc 97 mg/dL Normal 70-100 [facility] Comment on above: Performed By: #### 5 0103 #### [facility] [address] [place] [address], [place] Glucose mass conc 110 mg/dL High 70-100 [facility] Comment on above: Performed By: #### 5 0103 #### [facility] [address] [place] [address], [place] Glucose mass conc 105 mg/dL High 70-100 [facility] Comment on above: Performed By: #### 5 0103 #### [facility] [address] [place] [address], [place] Glucose mass conc 122 mg/dL High 70-100 [facility] Comment on above: Performed By: #### 5 3 #### [facility] [address] [place] [address], [place] Glucose mass conc 141 mg/dL High 70-100 [facility] Comment on above: Performed By: #### 5 0103 #### [facility] [address] [place] [address], [facility] Glucose mass conc 165 mg/dL High 70-100 [facility] Comment on above: Performed By: #### 5 0103 #### [facility] [address] [place] [address], [facility] Glucose mass conc 189 mg/dL High 70-100 [facility] Comment on above: Performed By: #### 5 0103 #### [facility] [address] [place] [address], [facility] Glucose mass conc 173 mg/dL High 70-100 [facility] Comment on above: Performed By: #### 5 0103 #### [facility] [address] [place] [address], [facility] PORTABLE CHEST 1 VIEWon 04-15 PORTABLE CHEST 1 VIEW [facility] Department of Radiology [address] [place] [address] ======== Patient Name: PATO CORRAL : 1960 Sex: F Age: Race: White Pt. Location: [id number] Patient Status: I Ordered Date: 04/29/2018 5:00:00 AM Completed Date: 04/29/2018 05:48 AM Requesting Provider: KAREN RUVALCABA Attending Provider: FELIPE HUGO Report Copy To: Signs & Symptoms: Post CABG History: Patient history not available Comments: R/O Atelectasis Exam: PORTABLE CHEST 1 VIEW ======== PORTABLE CHEST 1 VIEW 04/29/2018 5:48 AM EST SIGNS AND SYMPTOMS: Post CABG TECHNOLOGIST COMMENTS: Post CABG 04/28/18 r/o atelectasis per ordering physician QUESTION FOR THE RADIOLOGIST: R/O Atelectasis PROTOCOL: AP(PA) view was obtained. COMPARISON: April 28, 2018. FINDINGS: There is present. For complication crowding of the pulmonary vessels. Interval removal ET and NG tube. Stable positioning of bilateral nasopharynx. Right-sided IJ [place]-Jen with the tip in the main pulmonary outflow tract. The trachea is midline and the cardiomediastinal silhouette is within normal limits. No pneumothorax or subdiaphragmatic free air. Left lower lobe airspace disease. IMPRESSION: * Low lung volumes with left lower lobe atelectasis. Cannot exclude developing pneumonia. * Stable positioning of lines and tubes. Approved by:Babs Gamez on 04/29/2018 8:19 AM EST. I, Jerry Charles, have reviewed the images and report and concur with these findings. Electronically signed by:Jerry Charles. Transcribed by: [email or web address], User Resident: [email or web address] Electronically Signed by: JERRY CHARLES @ 04/29/2018 03:04 PM I personally read this/these film(s) with this resident Normal [facility] Comment on above: Order Comment: No: D o not add to previous draw POTASSIUM BLOODon 04-29-2018 Potassium molar conc 3.9 mmol/L Normal 3.5-5.1 [facility] Comment on above: Order Comment: No: D o not add to previous draw Performed By: #### 5 0103 #### [facility] [address] [place] [address], [facility] PROTHROMBIN TIMEon 9 INR Coag RelTime (PPP) 1.30 {INR} High 0.91-1.16 [facility] Comment on above: Order Comment: No: D o not add to previous draw Result Comment: ACCC P RECOMMENDED INR FOR WARFARIN THERAPY ------ ------- CONDITION INR PROPHYLAXIS OF VENOUS THROMBOSIS 2-3 (HIGH-RISK SURGERY) TREATMENT OF VENOUS THROMBOSIS 2-3 TREATMENT OF PULMONARY EMBOLISM 2-3 PREVENTION OF SYSTEMIC EMBOLISM: 2-3 ACUTE MYOCARDIAL INFARCTION TISSUE HEART VALVES VALVULAR HEART DISEASE ATRIAL FIBRILLATION RECURRENT SYSTEMIC EMBOLISM MECHANICAL HEART VALVE 2.5-3.5 FROM: ORAL ANTICOAGULANTS. MECHANISM OF ACTION, CLINICAL EFFECTIVENESS, AND OPTIMAL THERAPEUTIC RANGE. CHEST 1995;108:231S-246S. Performed By: #### 5 0103 #### [facility] [address] Prothrombin time (PT) Coag time (PPP) 16.2 s High 12.3-14.8 [facility] Comment on above: Order Comment: No: D o not add to previous draw Result Comment: ALL RESULTS MUST BE INTERPRETED WITH RESPECT TO BLOOD DRAWING ARTIFACT OR DILUTION ERROR OF ANTICOAGULANT AT THE TIME OF SAMPLING. Performed By: #### 5 0103 #### [facility] [address] [place] [id number], [facility] ACTIVATED CLOTTING TIMEon ACTIVATED CLOTTING TIME 121 sec Normal 82-152 [facility] Comment on above: Performed By: #### 3 1018 #### [facility] [address] [place] [address], [place] ACTIVATED CLOTTING TIME 418 sec High 82-152 [facility] Comment on above: Performed By: #### 8 5499 #### [facility] [address] [place] [address], [place] ACTIVATED CLOTTING TIME 455 sec High 82-152 [facility] Comment on above: Performed By: #### 8 5499 #### [facility] [address] [place] [address], [place] ACTIVATED CLOTTING TIME 467 sec High 82-152 [facility] Comment on above: Performed By: #### 3 1488 #### [facility] [address] [place] [address], [place] ACTIVATED CLOTTING TIME 485 sec High 82-152 [facility] Comment on above: Performed By: #### 3 1488 #### [facility] [address] [place] [address], [place] ACTIVATED CLOTTING TIME 424 sec High 82-152 [facility] Comment on above: Performed By: #### 3 1488 #### [facility] [address] [place] [address], [place] ACTIVATED CLOTTING TIME 508 sec High 82-152 [facility] Comment on above: Performed By: #### 3 1488 #### [facility] [address] [place] [address], [place] ACTIVATED CLOTTING TIME 537 sec High 82-152 [facility] Comment on above: Performed By: #### 8 5123 #### [facility] [address] [place] [address], [place] ACTIVATED CLOTTING TIME 418 sec High 82-152 [facility] Comment on above: Performed By: #### 8 5123 #### [facility] [address] [place] [address], [place] ACTIVATED CLOTTING TIME 537 sec High 82-152 [facility] Comment on above: Performed By: #### 8 5123 #### [facility] [address] [place] [address], [place] ACTIVATED CLOTTING TIME 412 sec High 82-152 [facility] Comment on above: Performed By: #### 8 5123 #### [facility] [address] [place] [address], [facility] ACTIVATED CLOTTING TIME 473 sec High 82-152 [facility] Comment on above: Performed By: #### 8 5123 #### [facility] [address] [place] [address], [facility] ACTIVATED CLOTTING TIME 437 sec High 82-152 [facility] Comment on above: Performed By: #### 8 5123 #### [facility] [address] [place] [address], [facility] ACTIVATED CLOTTING TIME 126 sec Normal 82-152 [facility] Comment on above: Performed By: #### 3 1488 #### [facility] [address] [place] [address], [facility] APTTon 04-28-2018 aPTT Coag time (Bld) 36.9 s High 25.0-35.0 [facility] Comment on above: Result Comment: ALL RESULTS MUST BE INTERPRETED WITH RESPECT TO BLOOD DRAWING ARTIFACT OR DILUTION ERROR OF ANTICOAGULANT AT THE TIME OF SAMPLING. THE APTT SHOULD NOT BE USED TO MONITOR UNFRACTIONATED HEPARIN THERAPY, THIS LABORATORY NO LONGER HAS AN ESTABLISHED THERAPEUTIC RANGE BASED ON THE APTT. IT IS RECOMMENDED THAT THE [facility] - HEPARIN ASSAY (ANTI-XA ACTIVITY) BE USED FOR THIS PURPOSE. Performed By: #### 5 0103 #### [facility] [address] [place] [address], [facility] ARTERIAL BLOOD GAS W/COOXon 04-28-2018 BASE EXCESS -6 mmol/L Low -2-2 [facility] Comment on above: Performed By: #### 3 1018 #### [facility] [address] [facility] [place] [address], [facility] COHB 2 % High 0-1 [facility] Comment on above: Performed By: #### 3 1018 #### [facility] [address] [place] [address], [facility] DELIVERY SYSTEMS VENT Normal [facility] Comment on above: Performed By: #### 3 1018 #### [facility] [address] [place] [address], [facility] FIO2 50 % Normal 21-100 [facility] Comment on above: Performed By: #### 3 1018 #### [facility] [address] [place] [address], [facility] HCO3 molar conc (Bld) 21 mmol/L Low 23-27 [facility] Comment on above: Performed By: #### 3 1018 #### [facility] [address] [place] [address], [facility] METHB 0.6 % Normal 0.0-1.5 [facility] Comment on above: Performed By: #### 3 1018 #### [facility] [address] [place] [address], [facility] MIN VOLUME 7.0 Normal [facility] Comment on above: Performed By: #### 3 1018 #### [facility] [address] [place] [address], [facility] MODALITY SIMV Normal [facility] Comment on above: Performed By: #### 3 1018 #### [facility] [address] [place] [address], [facility] Oxygen ppres (Bld) 82 mm[Hg] Normal 75-100 [facility] Comment on above: Performed By: #### 3 1018 #### [facility] [address] [place] [address], [facility] Oxygen saturation in Blood 93.6 % Low 94.0-97.0 [facility] Comment on above: Performed By: #### 3 1018 #### [facility] [address] [place] [address], [facility] PCO2 48 mmHg High 35-45 [facility] Comment on above: Performed By: #### 3 1018 #### [facility] [address] [place] [address], [facility] PEEP 8.0 CMH20 Normal [facility] Comment on above: Performed By: #### 3 1018 #### [facility] [address] [place] [address], [place] pH (Bld) 7.25 [pH] Low 7.35-7.45 [facility] Comment on above: Performed By: #### 3 1018 #### [facility] [address] [place] [address], [facility] PRESSURE SUPPORT 5 Normal [facility] Comment on above: Performed By: #### 3 1018 #### [facility] [address] [place] [address], [facility] THB 12.0 g/dL Normal 12.0-15.0 [facility] Comment on above: Performed By: #### 3 1018 #### [facility] [address] [place] [address], [facility] TIDAL VOLUME (VT) CC 500 Normal [facility] Comment on above: Performed By: #### 3 1018 #### [facility] [address] [place] [address], [facility] ARTERIAL BLOOD GAS WITH ICAo n 04-28-2018 BASE EXCESS -2 mmol/L Normal -2-2 [facility] Comment on above: Performed By: #### 5 0103 #### [facility] [address] [place] [address], [facility] DELIVERY SYSTEMS MV Normal [facility] Comment on above: Performed By: #### 5 0103 #### [facility] [address] [place] [address], [place] FIO2 40 % Normal 21-100 [facility] Comment on above: Performed By: #### 5 0103 #### [facility] [address] [place] [address], [place] HCO3 molar conc (Bld) 24 mmol/L Normal 23-27 [facility] Comment on above: Performed By: #### 5 0103 #### [facility] [address] [facility] [place] [address], [facility] IONIZED CALCIUM 1.14 mmol/L Normal 1.13-1.32 [facility] Comment on above: Performed By: #### 5 0103 #### [facility] [address] [place] [address], [facility] MIN VOLUME 7.1 Normal [facility] Comment on above: Performed By: #### 5 3 #### [facility] [address] [place] [place] [address], [facility] MODALITY SIMV Normal [facility] Comment on above: Performed By: #### 3 #### [facility] [address] [facility] [place], [place] [id number] [place] [address] Oxygen ppres (Bld) 87 mm[Hg] Normal 75-100 [facility] Comment on above: Performed By: #### 5 3 #### [facility] [address] [facility]. [address] Oxygen saturation in Blood 94.8 % Normal 94.0-97.0 [facility] Comment on above: Performed By: #### 5 3 #### [facility] [address] [place] [place] [address], [facility] PCO2 44 mmHg Normal 35-45 [facility] Comment on above: Performed By: #### 3 #### [facility] [address] [place] [place] [address], [facility] PEEP 8.0 CMH20 Normal [facility] Comment on above: Performed By: #### 102 #### [facility] [address] [place] [address], [facility] PF RATIO 218 mmHg Normal 50-400 [facility] Comment on above: Performed By: #### 5 0103 #### [facility] [address] [place] [address], [facility] pH (Bld) 7.34 [pH] Low 7.35-7.45 [facility] Comment on above: Performed By: #### 5 0103 #### [facility] [address] [place] [address], [facility] PRESSURE SUPPORT 5 Normal [facility] Comment on above: Performed By: #### 5 0103 #### [facility] [address] [place] [address], [facility] TIDAL VOLUME (VT) CC 500 Normal [facility] Comment on above: Performed By: #### 5 0103 #### [facility] [address] [place] [address], [facility] BASE EXCESS -4 mmol/L Low -2-2 [facility] Comment on above: Order Comment: No: D o not add to previous draw Performed By: #### 5 0103 #### [facility] [address] [place] [address], [facility] DELIVERY SYSTEMS MV Normal [facility] Comment on above: Order Comment: No: D o not add to previous draw Performed By: #### 5 0103 #### [facility] [address] [place] [address], [facility] FIO2 50 % Normal 21-100 [facility] Comment on above: Order Comment: No: D o not add to previous draw Performed By: #### 5 0103 #### [facility] [address] [place] [address], [facility] HCO3 molar conc (Bld) 22 mmol/L Low 23-27 [facility] Comment on above: Order Comment: No: D o not add to previous draw Performed By: #### 5 0103 #### [facility] [address] [place] [address], [facility] IONIZED CALCIUM 1.15 mmol/L Normal 1.13-1.32 [facility] Comment on above: Order Comment: No: D o not add to previous draw Performed By: #### 5 0103 #### [facility] [address] [place] [address], [place] MIN VOLUME 7.1 Normal [facility] Comment on above: Order Comment: No: D o not add to previous draw Performed By: #### 5 0103 #### [facility] [address] [place] [address], [place] MODALITY SIMV Normal [facility] Comment on above: Order Comment: No: D o not add to previous draw Performed By: #### 5 0103 #### [facility] [address] [place] [address], [facility] Oxygen ppres (Bld) 107 mm[Hg] Critically high 75-100 T [facility] Comment on above: Order Comment: No: D o not add to previous draw Performed By: #### 5 0103 #### [facility] [address] [place] [address], [facility] Oxygen saturation in Blood 94.9 % Normal 94.0-97.0 [facility] Comment on above: Order Comment: No: D o not add to previous draw Performed By: #### 5 0103 #### [facility] [address] [place] [address], [place] PCO2 42 mmHg Normal 35-45 [facility] Comment on above: Order Comment: No: D o not add to previous draw Performed By: #### 5 0103 #### [facility] [address] [place] [address], [place] PEEP 8.0 CMH20 Normal [facility] Comment on above: Order Comment: No: D o not add to previous draw Performed By: #### 5 0103 #### [facility] [address] [place] [address], [facility] pH (Bld) 7.33 [pH] Low 7.35-7.45 [facility] Comment on above: Order Comment: No: D o not add to previous draw Performed By: #### 5 0103 #### [facility] [address] [place] [address], [place] PRESSURE SUPPORT 5 Normal [facility] Comment on above: Order Comment: No: D o not add to previous draw Performed By: #### 5 0103 #### [facility] [address] [place] [address], [facility] TIDAL VOLUME (VT) CC 500 Normal [facility] Comment on above: Order Comment: No: D o not add to previous draw Performed By: #### 5 0103 #### [facility] [address] [place] [address], [facility] BASIC METABOLIC PANELon 04-15 Calcium mass conc 8.0 mg/dL Low 8.6-10.3 [facility] Comment on above: Order Comment: No: D o not add to previous draw Performed By: #### 5 0103 #### [facility] [address] [place] [address], [facility] Creatinine mass conc 0.91 mg/dL Normal 0.60-1.20 [facility] Comment on above: Order Comment: No: D o not add to previous draw Performed By: #### 5 0103 #### [facility] [address] [place] [address], [place] Urea nitrogen mass conc 16 mg/dL Normal 7-25 [facility] Comment on above: Order Comment: No: D o not add to previous draw Performed By: #### 5 0103 #### [facility] [address] [place] [address], [place] Potassium molar conc 4.6 mmol/L Normal 3.5-4.9 [facility] Comment on above: Order Comment: No: D o not add to previous draw Performed By: #### 5 0103 #### [facility] [address] [place] [address], [place] Performed By: #### 3 1018 #### [facility] [address] [place] [address], [place] Performed By: #### 8 5499 #### [facility] [address] [place] [address], [place] Calcium mass conc 6.1 mg/dL Low 8.6-10.3 [facility] Comment on above: Order Comment: No: D o not add to previous draw Performed By: #### 3 1488 #### [facility] [address] [place] [address], [place] Chloride molar conc 114 mmol/L High 98-107 [facility] Comment on above: Order Comment: No: D o not add to previous draw Performed By: #### 5 0103 #### [facility] [address] [place] [address], [place] Performed By: #### 3 1488 #### [facility] [address] [place] [address], [place] CO2 molar conc 22 mmol/L Normal 21-31 [facility] Comment on above: Order Comment: No: D o not add to previous draw Performed By: #### 5 0103 #### [facility] [address] [place] [address], [place] Performed By: #### 3 1488 #### [facility] [address] [place] [address], [place] Creatinine mass conc 0.90 mg/dL Normal 0.60-1.20 [facility] Comment on above: Order Comment: No: D o not add to previous draw Performed By: #### 3 1488 #### [facility] [address] [place] [address], [place] GFR/1.73 sq M predicted among blacks MDRD vol rate/area (S/P/Bld) mL/min/{1.73_m2} Normal >60 [facility] Comment on above: Order Comment: No: D o not add to previous draw Performed By: #### 5 0103 #### [facility] [address] [place] [address], [place] Performed By: #### 3 1488 #### [facility] [address] [place] [address], [place] GFR/1.73 sq M predicted among non-blacks MDRD vol rate/area (S/P/Bld) mL/min/{1.73_m2} Normal >60 [facility] Comment on above: Order Comment: No: D o not add to previous draw Performed By: #### 5 0103 #### [facility] [address] [place] [address], [place] Performed By: #### 3 1488 #### [facility] [address] [place] [address], [place] Glucose mass conc 169 mg/dL High 70-100 [facility] Comment on above: Order Comment: No: D o not add to previous draw Performed By: #### 3 1488 #### [facility] [address] [place] [address], [place] Potassium molar conc 5.1 mmol/L Normal 3.5-5.1 [facility] Comment on above: Order Comment: No: D o not add to previous draw Performed By: #### 3 1488 #### [facility] [address] [place] [address], [place] Sodium molar conc 140 mmol/L Normal 136-145 [facility] Comment on above: Order Comment: No: D o not add to previous draw Performed By: #### 3 1488 #### [facility] [address] [place] [address], [place] Urea nitrogen mass conc 15 mg/dL Normal 7-25 [facility] Comment on above: Order Comment: No: D o not add to previous draw Performed By: #### 3 1488 #### [facility] [address] [place] [address], [facility] Sodium molar conc 141 mmol/L Normal 138-146 [facility] Comment on above: Order Comment: No: D o not add to previous draw Performed By: #### 5 0103 #### [facility] [address] [place] [address], [facility] Performed By: #### 8 5499 #### [facility] [address] [place] [address], [facility] Glucose mass conc 177 mg/dL High 70-105 [facility] Comment on above: Order Comment: No: D o not add to previous draw Performed By: #### 5 0103 #### [facility] [address] [place] [address], [facility] Performed By: #### 8 5499 #### [facility] [address] [place] [address], [facility] CBC COMPLETE BLOOD COUNTon 0 - Erythrocyte distribution width Ratio (RBC) 15.5 % High 11.5-15.0 [facility] Comment on above: Order Comment: on ar rival to CVUNo: Do not add to previous draw Performed By: #### 3 1018 #### [facility] [address] [place] [address], [facility] Hematocrit Volume Fraction (Bld) 37.3 % Normal 36.0-45.0 [facility] Comment on above: Order Comment: on ar rival to CVUNo: Do not add to previous draw Performed By: #### 3 1018 #### [facility] [address] [place] [address], [facility] Hemoglobin mass conc (Bld) 12.3 g/dL Normal 12.0-15.0 [facility] Comment on above: Order Comment: on ar rival to CVUNo: Do not add to previous draw Performed By: #### 3 1018 #### [facility] [address] MCH Entitic mass (RBC) 27.0 pg Normal 27.0-33.0 [facility] Comment on above: Order Comment: on ar rival to CVUNo: Do not add to previous draw Performed By: #### 3 1018 #### [facility] [address] MCHC mass conc (RBC) 33.0 g/dL Normal 32.0-35.0 [facility] Comment on above: Order Comment: on ar rival to CVUNo: Do not add to previous draw Performed By: #### 3 1018 #### [facility] [address] MCV Entitic volume (RBC) 82.0 fL Normal 82.0-98.0 [facility] Comment on above: Order Comment: on ar rival to CVUNo: Do not add to previous draw Performed By: #### 3 1018 #### [facility] [address] [place] [address], [facility] PLAT CNT 137 10*3/uL Low 150-400 [facility] Comment on above: Order Comment: on ar rival to CVUNo: Do not add to previous draw Performed By: #### 3 1018 #### [facility] [address] RBC #/vol (Bld) 4.55 10*6/uL Normal 3.80-5.00 [facility] Comment on above: Order Comment: on ar rival to CVUNo: Do not add to previous draw Performed By: #### 3 1018 #### [facility] [address] [place] [address], [facility] WBC #/vol (Bld) 16.06 10*3/uL High 4.00-10.60 [facility] Comment on above: Order Comment: on ar rival to CVUNo: Do not add to previous draw Performed By: #### 3 1018 #### [facility] [address] [place] [address], [facility] Erythrocyte distribution width Ratio (RBC) 15.8 % High 11.5-15.0 [facility] Comment on above: Performed By: #### 3 1018 #### [facility] [address] [place] [address], [facility] Hematocrit Volume Fraction (Bld) 26.4 % Low 36.0-45.0 [facility] Comment on above: Performed By: #### 3 1018 #### [facility] [address] [place] [address], [facility] Hemoglobin mass conc (Bld) 8.9 g/dL Low 12.0-15.0 [facility] Comment on above: Performed By: #### 3 1018 #### [facility] [address] [place] [address], [facility] MCH Entitic mass (RBC) 27.7 pg Normal 27.0-33.0 [facility] Comment on above: Performed By: #### 3 1018 #### [facility] [address] [place] [address], [facility] MCHC mass conc (RBC) 33.7 g/dL Normal 32.0-35.0 [facility] Comment on above: Performed By: #### 3 1018 #### [facility] [address] [place] [address], [facility] MCV Entitic volume (RBC) 82.2 fL Normal 82.0-98.0 [facility] Comment on above: Performed By: #### 3 1018 #### [facility] [address] [place] [address], [facility] Nucleated RBC/100 WBC Ratio (Bld) 0 % Normal 0-0 [facility] Comment on above: Order Comment: on ar rival to CVUNo: Do not add to previous draw Performed By: #### 3 1018 #### [facility] [address] [place] [place] [address], [facility] PLAT CNT 107 10*3/uL Low 150-400 [facility] Comment on above: Performed By: #### 3 1018 #### [facility] [address] [place] [address], [facility] RBC #/vol (Bld) 3.21 10*6/uL Low 3.80-5.00 [facility] Comment on above: Performed By: #### 3 1018 #### [facility] [address] [place] [id number], [facility] WBC #/vol (Bld) 12.82 10*3/uL High 4.00-10.60 [facility] Comment on above: Performed By: #### 3 1018 #### [facility] [address] [place] [address], [facility] MAGNESIUM BLOODon 04-28-2018 Magnesium mass conc 2.8 mg/dL High 1.9-2.7 [facility] Comment on above: Order Comment: No: D o not add to previous draw Performed By: #### 5 0103 #### [facility] [address] [place] [id number], [facility] Magnesium mass conc 3.1 mg/dL High 1.9-2.7 [facility] Comment on above: Performed By: #### 3 1488 #### [facility] [address] [place] [address], [facility] PERFUSION BLOOD PANELon 04-15 BASE EXCESS -6.0 mmol/L Low -2.0-3.0 [facility] Comment on above: Performed By: #### 3 1018 #### [facility] [address] [place] [id number], [facility] Glucose mass conc 141 mg/dL High 70-105 [facility] Comment on above: Performed By: #### 3 1018 #### [facility] [address] [place] [address], [facility] Hematocrit Volume Fraction (Bld) 31 % Low 38-51 [facility] Comment on above: Performed By: #### 3 1018 #### [facility] [address] [place] [address], [facility] Hemoglobin mass conc (Bld) 10.5 g/dL Low 12.0-17.0 [facility] Comment on above: Performed By: #### 3 1018 #### [facility] [address] [facility] [place] [address], [facility] IONIZED CALCIUM 1.10 mmol/L Low 1.12-1.32 [facility] Comment on above: Performed By: #### 3 1018 #### [facility] [address] [facility] [place] [address], [facility] Oxygen ppres (Bld) 194.0 mm[Hg] High 80.0-105.0 [facility] Comment on above: Performed By: #### 3 1018 #### [facility] [address] [facility] [place] [address], [facility] PCO2 38.8 mmHg Normal 35.0-45.0 [facility] Comment on above: Performed By: #### 3 1018 #### [facility] [address] [facility] [place] [address], [facility] pH (Bld) 7.32 [pH] Low 7.35-7.45 [facility] Comment on above: Performed By: #### 3 1018 #### [facility] [address] [place] [address], [facility] Potassium molar conc 4.3 mmol/L Normal 3.5-4.9 [facility] Comment on above: Performed By: #### 3 1018 #### [facility] [address] [place] [address], [facility] Sodium molar conc 144 mmol/L Normal 138-146 [facility] Comment on above: Performed By: #### 3 1018 #### [facility] [address] [place] [address], [facility] BASE EXCESS -15.0 mmol/L Low -2.0-3.0 [facility] Comment on above: Performed By: #### 3 1018 #### [facility] [address] [place] [address], [facility] Glucose mass conc 114 mg/dL High 70-105 [facility] Comment on above: Performed By: #### 3 1018 #### [facility] [address] [place] [address], [facility] Hematocrit Volume Fraction (Bld) 19 % Low 38-51 [facility] Comment on above: Performed By: #### 3 1018 #### [facility] [address] [place] [address], [facility] Hemoglobin mass conc (Bld) 6.5 g/dL Low 12.0-17.0 [facility] Comment on above: Performed By: #### 3 1018 #### [facility] [address] [place] [address], [facility] IONIZED CALCIUM 0.74 mmol/L Critically low 1.12-1.32 [facility] Comment on above: Performed By: #### 3 1018 #### [facility] [address] [place] [address], [facility] Oxygen ppres (Bld) 35.0 mm[Hg] Normal [facility] Comment on above: Performed By: #### 3 1018 #### [facility] [address] [place] [address], [facility] PCO2 23.7 mmHg Low 41.0-51.0 [facility] Comment on above: Performed By: #### 3 1018 #### [facility] [address] [place] [address], [facility] pH (Bld) 7.27 [pH] Low 7.31-7.41 [facility] Comment on above: Performed By: #### 3 1018 #### [facility] [address] [place] [address], [facility] Potassium molar conc 2.3 mmol/L Critically low 3.5-4.9 [facility] Comment on above: Performed By: #### 3 1018 #### [facility] [address] [place] [address], [facility] Sodium molar conc 151 mmol/L High 138-146 [facility] Comment on above: Performed By: #### 3 1018 #### [facility] [address] [place] [address], [facility] BASE EXCESS -5.0 mmol/L Low -2.0-3.0 [facility] Comment on above: Performed By: #### 3 1018 #### [facility] [address] [place] [address], [facility] Glucose mass conc 150 mg/dL High 70-105 [facility] Comment on above: Performed By: #### 3 1018 #### [facility] [address] [place] [address], [facility] Hematocrit Volume Fraction (Bld) 27 % Low 38-51 [facility] Comment on above: Performed By: #### 3 1018 #### [facility] [address] [place] [address], [facility] Hemoglobin mass conc (Bld) 9.2 g/dL Low 12.0-17.0 [facility] Comment on above: Performed By: #### 3 1018 #### [facility] [address] [place] [address], [facility] IONIZED CALCIUM 1.17 mmol/L Normal 1.12-1.32 [facility] Comment on above: Performed By: #### 3 1018 #### [facility] [address] [place] [address], [facility] Oxygen ppres (Bld) 25.0 mm[Hg] Normal [facility] Comment on above: Performed By: #### 3 1018 #### [facility] [address] [place] [address], [facility] PCO2 48.3 mmHg Normal 41.0-51.0 [facility] Comment on above: Performed By: #### 3 1018 #### [facility] [address] [facility] [place] [address], [facility] pH (Bld) 7.26 [pH] Low 7.31-7.41 [facility] Comment on above: Performed By: #### 3 1018 #### [facility] [address] [facility] [place] [address], [facility] Sodium molar conc 143 mmol/L Normal 138-146 [facility] Comment on above: Performed By: #### 3 1018 #### [facility] [address] [facility] [place] [address], [facility] BASE EXCESS -3.0 mmol/L Low -2.0-3.0 [facility] Comment on above: Performed By: #### 8 5499 #### [facility] [address] [place] [address], [facility] Glucose mass conc 151 mg/dL High 70-105 [facility] Comment on above: Performed By: #### 8 5499 #### [facility] [address] [facility] [place] [address], [facility] Hematocrit Volume Fraction (Bld) 22 % Low 38-51 [facility] Comment on above: Performed By: #### 8 5499 #### [facility] [address] [facility] [place] [address], [place] Hemoglobin mass conc (Bld) 7.5 g/dL Low 12.0-17.0 [facility] Comment on above: Performed By: #### 8 5499 #### [facility] [address] [facility] [place] [place] [address], [facility] IONIZED CALCIUM 1.22 mmol/L Normal 1.12-1.32 [facility] Comment on above: Performed By: #### 8 5499 #### [facility] [address] [place] [address], [facility] Oxygen ppres (Bld) 252.0 mm[Hg] High 80.0-105.0 [facility] Comment on above: Performed By: #### 8 5499 #### [facility] [address] [facility] [place] [address], [facility] PCO2 41.0 mmHg Normal 35.0-45.0 [facility] Comment on above: Performed By: #### 8 5499 #### [facility] [address] [facility] [place] [address], [facility] pH (Bld) 7.35 [pH] Normal 7.35-7.45 [facility] Comment on above: Performed By: #### 8 5499 #### [facility] [address] [facility] [place] [address], [facility] Potassium molar conc 4.5 mmol/L Normal 3.5-4.9 [facility] Comment on above: Performed By: #### 8 5499 #### [facility] [address] [place] [address], [facility] Sodium molar conc 143 mmol/L Normal 138-146 [facility] Comment on above: Performed By: #### 8 5499 #### [facility] [address] [place] [address], [facility] BASE EXCESS -4.0 mmol/L Low -2.0-3.0 [facility] Comment on above: Performed By: #### 3 1018 #### [facility] [address] [place] [address], [place] Glucose mass conc 144 mg/dL High 70-105 [facility] Comment on above: Performed By: #### 3 1018 #### [facility] [address] [place] [address], [place] Hematocrit Volume Fraction (Bld) 21 % Low 38-51 [facility] Comment on above: Performed By: #### 3 1018 #### [facility] [address] [place] [address], [facility] Hemoglobin mass conc (Bld) 7.1 g/dL Low 12.0-17.0 [facility] Comment on above: Performed By: #### 3 1018 #### [facility] [address] [place] [address], [place] IONIZED CALCIUM 1.24 mmol/L Normal 1.12-1.32 [facility] Comment on above: Performed By: #### 3 1018 #### [facility] [address] [place] [address], [facility] Oxygen ppres (Bld) 25.0 mm[Hg] Normal [facility] Comment on above: Performed By: #### 3 1018 #### [facility] [address] [place] [address], [place] PCO2 49.9 mmHg Normal 41.0-51.0 [facility] Comment on above: Performed By: #### 3 1018 #### [facility] [address] [place] [address], [place] pH (Bld) 7.26 [pH] Low 7.31-7.41 [facility] Comment on above: Performed By: #### 3 1018 #### [facility] [address] [place] [address], [place] Potassium molar conc 4.8 mmol/L Normal 3.5-4.9 [facility] Comment on above: Performed By: #### 3 1018 #### [facility] [address] [place] [address], [facility] Sodium molar conc 142 mmol/L Normal 138-146 [facility] Comment on above: Performed By: #### 3 1018 #### [facility] [address] [place] [address], [facility] BASE EXCESS -1.0 mmol/L Normal -2.0-3.0 [facility] Comment on above: Performed By: #### 3 1018 #### [facility] [address] [place] [address], [facility] Glucose mass conc 159 mg/dL High 70-105 [facility] Comment on above: Performed By: #### 3 1018 #### [facility] [address] [place], [place] [id number] [place] [address] Hematocrit Volume Fraction (Bld) 22 % Low 38-51 [facility] Comment on above: Performed By: #### 3 1018 #### [facility] [address] [place] [address], [facility] Hemoglobin mass conc (Bld) 7.5 g/dL Low 12.0-17.0 [facility] Comment on above: Performed By: #### 3 1018 #### [facility] [address] [place] [address], [facility] IONIZED CALCIUM 1.46 mmol/L High 1.12-1.32 [facility] Comment on above: Performed By: #### 3 1018 #### [facility] [address] [place] [address], [facility] Oxygen ppres (Bld) 419.0 mm[Hg] High 80.0-105.0 [facility] Comment on above: Performed By: #### 3 1018 #### [facility] [address] [place] [address], [place] PCO2 45.5 mmHg High 35.0-45.0 [facility] Comment on above: Performed By: #### 3 1018 #### [facility] [address] [place] [address], [facility] pH (Bld) 7.34 [pH] Low 7.35-7.45 [facility] Comment on above: Performed By: #### 3 1018 #### [facility] [address] [place] [address], [facility] Potassium molar conc 4.8 mmol/L Normal 3.5-4.9 [facility] Comment on above: Performed By: #### 3 1018 #### [facility] [address] [facility] [place] [address], [facility] Sodium molar conc 139 mmol/L Normal 138-146 [facility] Comment on above: Performed By: #### 3 1018 #### [facility] [address] [facility] [place] [address], [facility] BASE EXCESS 1.0 mmol/L Normal -2.0-3.0 [facility] Comment on above: Performed By: #### 8 5499 #### [facility] [address] [facility] [place] [address], [facility] Glucose mass conc 148 mg/dL High 70-105 [facility] Comment on above: Performed By: #### 8 [id number] #### [facility] [address] [facility]. [address] Hematocrit Volume Fraction (Bld) 20 % Low 38-51 [facility] Comment on above: Performed By: #### 8 5499 #### [facility] [address] [facility] [place] [address], [facility] Hemoglobin mass conc (Bld) 6.8 g/dL Low 12.0-17.0 [facility] Comment on above: Performed By: #### 8 5499 #### [facility] [address] [facility] [place] [address], [facility] IONIZED CALCIUM 0.92 mmol/L Low 1.12-1.32 [facility] Comment on above: Performed By: #### 8 5499 #### [facility] [address] [place] [address], [facility] Oxygen ppres (Bld) 451.0 mm[Hg] High 80.0-105.0 [facility] Comment on above: Performed By: #### 8 5499 #### [facility] [address] [facility] [place] [address], [facility] PCO2 40.7 mmHg Normal 35.0-45.0 [facility] Comment on above: Performed By: #### 8 5499 #### [facility] [address] [place] [address], [facility] pH (Bld) 7.41 [pH] Normal 7.35-7.45 [facility] Comment on above: Performed By: #### 8 5499 #### [facility] [address] [facility] [place] [address], [facility] Potassium molar conc 4.9 mmol/L Normal 3.5-4.9 [facility] Comment on above: Performed By: #### 8 5499 #### [facility] [address] [facility] [place] [address], [facility] Sodium molar conc 140 mmol/L Normal 138-146 [facility] Comment on above: Performed By: #### 8 5499 #### [facility] [address] [facility] [place] [address], [facility] BASE EXCESS -3.0 mmol/L Low -2.0-3.0 [facility] Comment on above: Performed By: #### 8 5499 #### [facility] [address] [place] [address], [facility] Glucose mass conc 174 mg/dL High 70-105 [facility] Comment on above: Performed By: #### 8 5499 #### [facility] [address] [place] [address], [facility] Hematocrit Volume Fraction (Bld) 23 % Low 38-51 [facility] Comment on above: Performed By: #### 8 5499 #### [facility] [address] [place] [address], [facility] Hemoglobin mass conc (Bld) 7.8 g/dL Low 12.0-17.0 [facility] Comment on above: Performed By: #### 8 5499 #### [facility] [address] [facility] [place] [address], [facility] IONIZED CALCIUM 0.99 mmol/L Low 1.12-1.32 [facility] Comment on above: Performed By: #### 8 5499 #### [facility] [address] [place], [place] [id number] [place] [address] Oxygen ppres (Bld) 533.0 mm[Hg] High 80.0-105.0 [facility] Comment on above: Performed By: #### 8 5499 #### [facility] [address] [facility] [place] [address], [facility] PCO2 48.6 mmHg High 35.0-45.0 [facility] Comment on above: Performed By: #### 8 5499 #### [facility] [address] [place] [address], [facility] pH (Bld) 7.29 [pH] Low 7.35-7.45 [facility] Comment on above: Performed By: #### 8 5499 #### [facility] [address] [place] [id number], [facility] Sodium molar conc 140 mmol/L Normal 138-146 [facility] Comment on above: Performed By: #### 8 5499 #### [facility] [address] [place] [address], [facility] BASE EXCESS -1.0 mmol/L Normal -2.0-3.0 [facility] Comment on above: Performed By: #### 8 5499 #### [facility] [address] Glucose mass conc 144 mg/dL High 70-105 [facility] Comment on above: Performed By: #### 8 5499 #### [facility] [address] Hematocrit Volume Fraction (Bld) 20 % Low 38-51 [facility] Comment on above: Performed By: #### 8 5499 #### [facility] [address] [facility]. [address] Hemoglobin mass conc (Bld) 6.8 g/dL Low 12.0-17.0 [facility] Comment on above: Performed By: #### 8 5499 #### [facility] [address] [facility]. [address] IONIZED CALCIUM 0.97 mmol/L Low 1.12-1.32 [facility] Comment on above: Performed By: #### 8 5499 #### [facility] [address] [facility]. [address] Oxygen ppres (Bld) 474.0 mm[Hg] High 80.0-105.0 [facility] Comment on above: Performed By: #### 8 5499 #### [facility] [address] [facility]. [address] PCO2 39.4 mmHg Normal 35.0-45.0 [facility] Comment on above: Performed By: #### 8 5499 #### [facility] [address] [facility]. [address] pH (Bld) 7.39 [pH] Normal 7.35-7.45 [facility] Comment on above: Performed By: #### 8 5499 #### [facility] [address] [place] [address], [facility] Potassium molar conc 5.0 mmol/L High 3.5-4.9 [facility] Comment on above: Performed By: #### 8 5499 #### [facility] [address] [place] [address], [facility] Sodium molar conc 138 mmol/L Normal 138-146 [facility] Comment on above: Performed By: #### 8 5499 #### [facility] [address] [facility] [place] [address], [facility] BASE EXCESS -1.0 mmol/L Normal -2.0-3.0 [facility] Comment on above: Performed By: #### 8 5499 #### [facility] [address] [facility] [place] [address], [facility] Glucose mass conc 151 mg/dL High 70-105 [facility] Comment on above: Performed By: #### 8 5499 #### [facility] [address] [facility] [place], [place] [id number] [place] [address] Hematocrit Volume Fraction (Bld) 20 % Low 38-51 [facility] Comment on above: Performed By: #### 8 5499 #### [facility] [address] [facility] [place] [address], [facility] Hemoglobin mass conc (Bld) 6.8 g/dL Low 12.0-17.0 [facility] Comment on above: Performed By: #### 8 5499 #### [facility] [address] [facility] [place] [address], [facility] IONIZED CALCIUM 1.05 mmol/L Low 1.12-1.32 [facility] Comment on above: Performed By: #### 8 5499 #### [facility] [address] [place] [address], [facility] Oxygen ppres (Bld) 480.0 mm[Hg] High 80.0-105.0 [facility] Comment on above: Performed By: #### 8 5499 #### [facility] [address] [place] [address], [facility] PCO2 43.9 mmHg Normal 35.0-45.0 [facility] Comment on above: Performed By: #### 8 5499 #### [facility] [address] [place] [address], [facility] pH (Bld) 7.36 [pH] Normal 7.35-7.45 [facility] Comment on above: Performed By: #### 8 5499 #### [facility] [address] [place] [address], [facility] Potassium molar conc 3.7 mmol/L Normal 3.5-4.9 [facility] Comment on above: Performed By: #### 8 5499 #### [facility] [address] [place] [address], [facility] BASE EXCESS -2.0 mmol/L Normal -2.0-3.0 [facility] Comment on above: Performed By: #### 8 5499 #### [facility] [address] [place] [address], [facility] Glucose mass conc 156 mg/dL High 70-105 [facility] Comment on above: Performed By: #### 8 5499 #### [facility] [address] [place] [address], [facility] Hematocrit Volume Fraction (Bld) 17 % Low 38-51 [facility] Comment on above: Performed By: #### 8 5499 #### [facility] [address] [place] [address], [facility] Hemoglobin mass conc (Bld) 5.8 g/dL Critically low 12.0-17.0 [facility] Comment on above: Performed By: #### 8 5499 #### [facility] [address] [place] [address], [facility] IONIZED CALCIUM 0.95 mmol/L Low 1.12-1.32 [facility] Comment on above: Performed By: #### 8 5499 #### [facility] [address] Oxygen ppres (Bld) 482.0 mm[Hg] High 80.0-105.0 [facility] Comment on above: Performed By: #### 8 5499 #### [facility] [address] [place] [place] [address], [facility] PCO2 42.4 mmHg Normal 35.0-45.0 [facility] Comment on above: Performed By: #### 8 5499 #### [facility] [address] [facility]. [address] pH (Bld) 7.35 [pH] Normal 7.35-7.45 [facility] Comment on above: Performed By: #### 8 5499 #### [facility] [address] [facility]. [address] Potassium molar conc 4.5 mmol/L Normal 3.5-4.9 [facility] Comment on above: Performed By: #### 8 5499 #### [facility] [address] [place] [place] [address], [facility] Sodium molar conc 139 mmol/L Normal 138-146 [facility] Comment on above: Performed By: #### 8 5499 #### [facility] [address] [facility]. [address] BASE EXCESS -6.0 mmol/L Low -2.0-3.0 [facility] Comment on above: Performed By: #### 8 5499 #### [facility] [address] [place] [place] [address], [facility] Glucose mass conc 181 mg/dL High 70-105 [facility] Comment on above: Performed By: #### 8 5499 #### [facility] [address] [facility] [place] [place] [address], [facility] Hematocrit Volume Fraction (Bld) 22 % Low 38-51 [facility] Comment on above: Performed By: #### 8 5499 #### [facility] [address] [place] [address], [facility] Hemoglobin mass conc (Bld) 7.5 g/dL Low 12.0-17.0 [facility] Comment on above: Performed By: #### 8 5499 #### [facility] [address] [place] [address], [facility] IONIZED CALCIUM 1.14 mmol/L Normal 1.12-1.32 [facility] Comment on above: Performed By: #### 8 5499 #### [facility] [address] [place] [address], [facility] Oxygen ppres (Bld) 31.0 mm[Hg] Normal [facility] Comment on above: Performed By: #### 8 5499 #### [facility] [address] [place] [address], [facility] PCO2 49.4 mmHg Normal 41.0-51.0 [facility] Comment on above: Performed By: #### 8 5499 #### [facility] [address] [place] [address], [facility] pH (Bld) 7.24 [pH] Low 7.31-7.41 [facility] Comment on above: Performed By: #### 8 5499 #### [facility] [address] [place] [address], [facility] Sodium molar conc 142 mmol/L Normal 138-146 [facility] Comment on above: Performed By: #### 8 5499 #### [facility] [address] [place] [address], [facility] BASE EXCESS -5.0 mmol/L Low -2.0-3.0 [facility] Comment on above: Performed By: #### 8 5499 #### [facility] [address] [place] [address], [facility] Hematocrit Volume Fraction (Bld) 23 % Low 38-51 [facility] Comment on above: Performed By: #### 8 5499 #### [facility] [address] [place] [address], [facility] Hemoglobin mass conc (Bld) 7.8 g/dL Low 12.0-17.0 [facility] Comment on above: Performed By: #### 8 5499 #### [facility] [address] [facility] [place] [address], [facility] IONIZED CALCIUM 1.14 mmol/L Normal 1.12-1.32 [facility] Comment on above: Performed By: #### 8 5499 #### [facility] [address] [place] [address], [facility] Oxygen ppres (Bld) 326.0 mm[Hg] High 80.0-105.0 [facility] Comment on above: Performed By: #### 8 5499 #### [facility] [address] [facility] [place] [address], [facility] PCO2 39.6 mmHg Normal 35.0-45.0 [facility] Comment on above: Performed By: #### 8 5499 #### [facility] [address] [place] [address], [facility] pH (Bld) 7.33 [pH] Low 7.35-7.45 [facility] Comment on above: Performed By: #### 8 5499 #### [facility] [address] [place] [id number], [facility] Potassium molar conc 4.7 mmol/L Normal 3.5-4.9 [facility] Comment on above: Performed By: #### 8 5499 #### [facility] [address] [place] [address], [facility] Sodium molar conc 140 mmol/L Normal 138-146 [facility] Comment on above: Performed By: #### 8 5499 #### [facility] [address] BASE EXCESS -4.0 mmol/L Low -2.0-3.0 [facility] Comment on above: Performed By: #### 3 1488 #### [facility] [address] [facility]. [address] Glucose mass conc 161 mg/dL High 70-105 [facility] Comment on above: Performed By: #### 3 1488 #### [facility] [address] Hematocrit Volume Fraction (Bld) 30 % Low 38-51 [facility] Comment on above: Performed By: #### 3 1488 #### [facility] [address] [facility]. [address] Hemoglobin mass conc (Bld) 10.2 g/dL Low 12.0-17.0 [facility] Comment on above: Performed By: #### 3 1488 #### [facility] [address] IONIZED CALCIUM 1.19 mmol/L Normal 1.12-1.32 [facility] Comment on above: Performed By: #### 3 1488 #### [facility] [address] Oxygen ppres (Bld) 250.0 mm[Hg] High 80.0-105.0 [facility] Comment on above: Performed By: #### 3 1488 #### [facility] [address] PCO2 47.1 mmHg High 35.0-45.0 [facility] Comment on above: Performed By: #### 3 1488 #### [facility] [address] [place] [address], [facility] pH (Bld) 7.29 [pH] Low 7.35-7.45 [facility] Comment on above: Performed By: #### 3 1488 #### [facility] [address] [place] [address], [facility] Potassium molar conc 4.5 mmol/L Normal 3.5-4.9 [facility] Comment on above: Performed By: #### 3 1488 #### [facility] [address] [place] [address], [facility] Sodium molar conc 139 mmol/L Normal 138-146 [facility] Comment on above: Performed By: #### 3 1488 #### [facility] [address] [place] [address], [facility] BASE EXCESS -4.0 mmol/L Low -2.0-3.0 [facility] Comment on above: Performed By: #### 8 5123 #### [facility] [address] [place] [address], [facility] Glucose mass conc 206 mg/dL High 70-105 [facility] Comment on above: Performed By: #### 8 5123 #### [facility] [address] [place] [address], [facility] Hematocrit Volume Fraction (Bld) 32 % Low 38-51 [facility] Comment on above: Performed By: #### 8 5123 #### [facility] [address] [place] [address], [facility] Hemoglobin mass conc (Bld) 10.9 g/dL Low 12.0-17.0 [facility] Comment on above: Performed By: #### 8 5123 #### [facility] [address] [place] [address], [facility] IONIZED CALCIUM 1.20 mmol/L Normal 1.12-1.32 [facility] Comment on above: Performed By: #### 8 5123 #### [facility] [address] [place] [address], [facility] Oxygen ppres (Bld) 108.0 mm[Hg] High 80.0-105.0 [facility] Comment on above: Performed By: #### 8 5123 #### [facility] [address] [place] [address], [place] PCO2 41.2 mmHg Normal 35.0-45.0 [facility] Comment on above: Performed By: #### 8 5123 #### [facility] [address] [place] [address], [facility] pH (Bld) 7.33 [pH] Low 7.35-7.45 [facility] Comment on above: Performed By: #### 8 5123 #### [facility] [address] [place] [address], [facility] Potassium molar conc 4.3 mmol/L Normal 3.5-4.9 [facility] Comment on above: Performed By: #### 8 5123 #### [facility] [address] [place] [address], [facility] Sodium molar conc 139 mmol/L Normal 138-146 [facility] Comment on above: Performed By: #### 8 5123 #### [facility] [address] [place] [address], [facility] POC GLUCOSE LABon 04-28-2018 Glucose mass conc 167 mg/dL High 70-100 [facility] Comment on above: Performed By: #### 5 0103 #### [facility] [address] [place] [address], [place] Glucose mass conc 161 mg/dL High 70-100 [facility] Comment on above: Performed By: #### 5 0103 #### [facility] [address] [place] [address], [place] Glucose mass conc 160 mg/dL High 70-100 [facility] Comment on above: Performed By: #### 3 1018 #### [facility] [address] [facility] [place], [place] [id number] [place] [address] Glucose mass conc 230 mg/dL High 70-100 [facility] Comment on above: Performed By: #### 3 6901, [address], [address] #### [facility] [address] [place], [place] [id number] [place] [address] PORTABLE CHEST 1 VIEWon 04-15 PORTABLE CHEST 1 VIEW [facility] Department of Radiology [address] [place] [id number] ======== Patient Name: PATO CORRAL : 1960 Sex: F Age: Race: White Pt. Location: [id number] Patient Status: I Ordered Date: 04/28/2018 6:15:00 PM Completed Date: 04/28/2018 07:52 PM Requesting Provider: KAREN RUVALCABA Attending Provider: FELIPE HUGO Report Copy To: Signs & Symptoms: Post OP History: Patient history not available Comments: Check Chest Tube Position Exam: PORTABLE CHEST 1 VIEW ======== PORTABLE CHEST 1 VIEW 04/28/2018 7:52 PM EST SIGNS AND SYMPTOMS: Post OP TECHNOLOGIST COMMENTS: Post op s/p Chest tube placement. QUESTION FOR THE RADIOLOGIST: Check Chest Tube Position PROTOCOL: AP(PA) view was obtained. COMPARISON: April 25, 2018 CXR. FINDINGS: The cardiomediastinal silhouette is unchanged. There is prominence of the central pulmonary vasculature and mild interstitial edema. 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 ET tube is 2.5 cm from the rosario, the head is likely flexed, in satisfactory position. NG tube with tip within the stomach, in satisfactory position. Right IJ approach [place]-Jen catheter with tip in the main pulmonary outflow tract. There are 2 mediastinal drains. There is a right-sided pleural drain with tip pointing towards the base. There is a left-sided chest tube with tip pointing towards the lung apex. There is a retrocardiac airspace opacity. Small left-sided pleural effusion. No pneumothorax. IMPRESSION: Left-sided chest tube with tip point towards the lung apex and right pleural drain with tip pointing towards the lung base, in satisfactory position. Mediastinal drains are noted. ET and NG tube in satisfactory position. Right IJ approach And[place]-Jen catheter with tip in the main pulmonary outflow tract. Retrocardiac airspace opacity which likely represents atelectasis however pneumonia is not excluded. Similar area just inferior to the right hilum which could represent atelectasis or small pneumonia small pneumonia Small left sided pleural effusion. Prominence of the central pulmonary vasculature and mild interstitial edema. Approved by:Chante Haines on 04/28/2018 10:21 PM EST. I, Jerry Charles, have reviewed the images and report and concur with these findings. Electronically signed by:Jerry Charles. Transcribed by: [email or web address], User Resident: CHANTE HAINES Electronically Signed by: JERRY CHARLES @ 04/29/2018 07:53 AM I personally read this/these film(s) with this resident Normal [facility] Comment on above: Order Comment: No: D o not add to previous draw PROTHROMBIN TIMEon 9 INR Coag RelTime (PPP) 1.37 {INR} High 0.91-1.16 [facility] Comment on above: Result Comment: ACCC P RECOMMENDED INR FOR WARFARIN THERAPY ------ ------- CONDITION INR PROPHYLAXIS OF VENOUS THROMBOSIS 2-3 (HIGH-RISK SURGERY) TREATMENT OF VENOUS THROMBOSIS 2-3 TREATMENT OF PULMONARY EMBOLISM 2-3 PREVENTION OF SYSTEMIC EMBOLISM: 2-3 ACUTE MYOCARDIAL INFARCTION TISSUE HEART VALVES VALVULAR HEART DISEASE ATRIAL FIBRILLATION RECURRENT SYSTEMIC EMBOLISM MECHANICAL HEART VALVE 2.5-3.5 FROM: ORAL ANTICOAGULANTS. MECHANISM OF ACTION, CLINICAL EFFECTIVENESS, AND OPTIMAL THERAPEUTIC RANGE. CHEST 1995;108:231S-246S. Performed By: #### 5 0103 #### [facility] [address] Prothrombin time (PT) Coag time (PPP) 16.9 s High 12.3-14.8 [facility] Comment on above: Result Comment: ALL RESULTS MUST BE INTERPRETED WITH RESPECT TO BLOOD DRAWING ARTIFACT OR DILUTION ERROR OF ANTICOAGULANT AT THE TIME OF SAMPLING. Performed By: #### 5 0103 #### [facility] [address] [place] [address], [facility] RBC'S 2 UNITSon 04-28-2018 CROSSMATCH INTERP 1 COMP Normal [facility] Comment on above: Performed By: #### 3 1488 #### [facility] [address] [facility] [place] [address], [facility] CROSSMATCH INTERP 2 COMP Normal [facility] Comment on above: Performed By: #### 3 1488 #### [facility] [address] [facility] [place] [address], [facility] Protein mass conc PT Normal [facility] Comment on above: Result Comment: Resu lt changed by IF on 04/29/2018 10:38. The previous value was XM. Result changed by IF on 04/30/2018 00:30. The previous value was IS. Performed By: #### 3 1488 #### [facility] [address] [place] [address], [facility] Protein mass conc 336 g/dL Normal [facility] Comment on above: Performed By: #### 3 1488 #### [facility] [address] [place] [address], [place] Protein mass conc RE Normal [facility] Comment on above: Result Comment: Resu lt changed by IF on 05/01/2018 07:28. The previous value was XM. Performed By: #### 3 1488 #### [facility] [address] [place] [address], [facility] UNIT ABO 1 O Normal [facility] Comment on above: Performed By: #### 3 1488 #### [facility] [address] [place] [address], [facility] UNIT ABO 2 O Normal [facility] Comment on above: Performed By: #### 3 1488 #### [facility] [address] [place] [address], [facility] UNIT ID 1 [id number] Normal [facility] Comment on above: Performed By: #### 3 1488 #### [facility] [address] [place] [address], [facility] UNIT ID 2 [id number] Normal [facility] Comment on above: Performed By: #### 3 1488 #### [facility] [address] [place] [address], [place] UNIT RH 1 Positive Normal [facility] Comment on above: Performed By: #### 3 1488 #### [facility] [address] [place] [address], [place] UNIT RH 2 Positive Normal [facility] Comment on above: Performed By: #### 3 1488 #### [facility] [address] [place] [address], [place] CROSSMATCH INTERP 1 COMP Normal [facility] Comment on above: Performed By: #### 8 5123 #### [facility] [address] [place] [address], [place] CROSSMATCH INTERP 2 COMP Normal [facility] Comment on above: Performed By: #### 8 5123 #### [facility] [address] [place] [address], [place] Protein mass conc 336 g/dL Normal [facility] Comment on above: Performed By: #### 8 5123 #### [facility] [address] [place] [address], [place] Protein mass conc PT Normal [facility] Comment on above: Result Comment: Resu lt changed by IF on 04/28/2018 15:02. The previous value was XM. Result changed by IF on 04/29/2018 00:30. The previous value was IS. Performed By: #### 8 5123 #### [facility] [address] [place] [address], [place] UNIT ABO 1 O Normal [facility] Comment on above: Performed By: #### 8 5123 #### [facility] [address] [place] [address], [place] UNIT ABO 2 O Normal [facility] Comment on above: Performed By: #### 8 5123 #### [facility] [address] [place] [address], [facility] UNIT ID 1 [id number] Normal [facility] Comment on above: Performed By: #### 8 5123 #### [facility] [address] [place] [address], [facility] UNIT ID 2 [id number] Normal [facility] Comment on above: Performed By: #### 8 5123 #### [facility] [address] [place] [address], [place] UNIT RH 1 Positive Normal [facility] Comment on above: Performed By: #### 8 5123 #### [facility] [address] [place] [address], [place] UNIT RH 2 Positive Normal [facility] Comment on above: Performed By: #### 8 5123 #### [facility] [address] [place] [address], [place] CROSSMATCH INTERP 1 COMP Normal [facility] Comment on above: Performed By: #### 8 5123 #### [facility] [address] [place] [address], [place] CROSSMATCH INTERP 2 COMP Normal [facility] Comment on above: Performed By: #### 8 5123 #### [facility] [address] [place] [address], [place] Protein mass conc 336 g/dL Normal [facility] Comment on above: Performed By: #### 8 5123 #### [facility] [address] [place] [address], [place] Protein mass conc PT Normal [facility] Comment on above: Result Comment: Resu lt changed by IF on 04/28/2018 13:08. The previous value was XM. Result changed by IF on 04/29/2018 00:30. The previous value was IS. Performed By: #### 8 5123 #### [facility] [address] [place] [address], [place] UNIT ABO 1 O Normal [facility] Comment on above: Performed By: #### 8 5123 #### [facility] [address] [place] [address], [place] UNIT ABO 2 O Normal [facility] Comment on above: Performed By: #### 8 5123 #### [facility] [address] [place] [address], [place] UNIT ID 1 [id number] Normal [facility] Comment on above: Performed By: #### 8 5123 #### [facility] [address] [place] [address], [facility] UNIT ID 2 [id number] Normal [facility] Comment on above: Performed By: #### 8 5123 #### [facility] [address] [place] [address], [facility] UNIT RH 1 Positive Normal [facility] Comment on above: Performed By: #### 8 5123 #### [facility] [address] [place] [address], [facility] UNIT RH 2 Positive Normal [facility] Comment on above: Performed By: #### 8 5123 #### [facility] [address] [place] [address], [facility] UFH HEPARIN ASSAYon 04-28-19 19 UNFRACTIONATED HEPARIN <0.10 Critically low 0.30-0.70 [facility] Comment on above: Result Comment: Radha roxaban and Apixaban will interfere with the anti Xa assay used to monitor UFH and LMWH. RESULTS CHECKED AND CALLED. ACCURATELY READ BACK BY BRADY JORDAN RN AT 07:41 Performed By: #### 8 5123 #### [facility] [address] [place] [address], [facility] ARTERIAL BLOOD GAS W/COOXon 04-27-2018 BASE EXCESS 0 mmol/L Normal -2-2 [facility] Comment on above: Performed By: #### 3 690, 85706, 80518 #### [facility] [address] [place] [address], [place] COHB 1 % Normal 0-1 [facility] Comment on above: Performed By: #### 3 690, 06899, 42491 #### [facility] [address] [place] [address], [place] DELIVERY SYSTEMS ROOM AIR Normal [facility] Comment on above: Performed By: #### 3 690, , 25451 #### [facility] [address] [place] [address], [facility] FIO2 21 % Normal 21-100 [facility] Comment on above: Performed By: #### 3 6900, , 66687 #### [facility] [address] [place] [address], [facility] HCO3 molar conc (Bld) 25 mmol/L Normal 23-27 [facility] Comment on above: Performed By: #### 3 6900, , 47860 #### [facility] [address] [place] [address], [facility] METHB 0.2 % Normal 0.0-1.5 [facility] Comment on above: Performed By: #### 3 6900, , 34065 #### [facility] [address] [place] [address], [facility] Oxygen ppres (Bld) 76 mm[Hg] Normal 75-100 [facility] Comment on above: Performed By: #### 3 6900, 37984, 91686 #### [facility] [address] [facility] [place] [address], [facility] Oxygen saturation in Blood 93.6 % Low 94.0-97.0 [facility] Comment on above: Performed By: #### 3 6900, 78920, 92620 #### [facility] [address] [place] [address], [facility] PCO2 41 mmHg Normal 35-45 [facility] Comment on above: Performed By: #### 3 6900, 48516, 64717 #### [facility] [address] [place] [address], [place] pH (Bld) 7.39 [pH] Normal 7.35-7.45 [facility] Comment on above: Performed By: #### 3 6900, 99178, 09667 #### [facility] [address] [place] [address], [facility] THB 13.8 g/dL Normal 12.0-15.0 [facility] Comment on above: Performed By: #### 3 690, 11099, 34741 #### [facility] [address] [place] [address], [place] BASIC METABOLIC PANELon 04-15 Calcium mass conc 8.7 mg/dL Normal 8.6-10.3 [facility] Comment on above: Order Comment: No: D o not add to previous draw Performed By: #### 3 690, 20256, 05819 #### [facility] [address] [place] [address], [place] Chloride molar conc 103 mmol/L Normal 98-107 [facility] Comment on above: Order Comment: No: D o not add to previous draw Performed By: #### 3 947, 92527, 81648 #### [facility] [address] [place] [address], [place] CO2 molar conc 26 mmol/L Normal 21-31 [facility] Comment on above: Order Comment: No: D o not add to previous draw Performed By: #### 3 943, 84643, 42343 #### [facility] [address] [place] [address], [place] Creatinine mass conc 0.65 mg/dL Normal 0.60-1.20 [facility] Comment on above: Order Comment: No: D o not add to previous draw Performed By: #### 3 690, 07662, 82432 #### [facility] [address] [place] [address], [place] GFR/1.73 sq M predicted among blacks MDRD vol rate/area (S/P/Bld) mL/min/{1.73_m2} Normal >60 [facility] Comment on above: Order Comment: No: D o not add to previous draw Performed By: #### 3 231, 02451, 10361 #### [facility] [address] [place] [address], [facility] GFR/1.73 sq M predicted among non-blacks MDRD vol rate/area (S/P/Bld) mL/min/{1.73_m2} Normal >60 [facility] Comment on above: Order Comment: No: D o not add to previous draw Performed By: #### 3 690, 36665, 20715 #### [facility] [address] [place] [address], [facility] Glucose mass conc 192 mg/dL High 70-100 [facility] Comment on above: Order Comment: No: D o not add to previous draw Performed By: #### 3 6900, , 81290 #### [facility] [address] [place] [address], [facility] Potassium molar conc 3.8 mmol/L Normal 3.5-5.1 [facility] Comment on above: Order Comment: No: D o not add to previous draw Performed By: #### 3 690, , 40592 #### [facility] [address] [place] [address], [facility] Sodium molar conc 135 mmol/L Low 136-145 [facility] Comment on above: Order Comment: No: D o not add to previous draw Performed By: #### 3 690, 88242, 25778 #### [facility] [address] [place] [address], [facility] Urea nitrogen mass conc 12 mg/dL Normal 7-25 [facility] Comment on above: Order Comment: No: D o not add to previous draw Performed By: #### 3 690, 72183, 69733 #### [facility] [address] [place] [address], [place] CBC COMPLETE BLOOD COUNTon 0 2- Erythrocyte distribution width Ratio (RBC) 14.0 % Normal 11.5-15.0 [facility] Comment on above: Order Comment: No: D o not add to previous draw Performed By: #### 3 690, 30565, 32980 #### [facility] [address] [place] [address], [facility] Hematocrit Volume Fraction (Bld) 35.3 % Low 36.0-45.0 [facility] Comment on above: Order Comment: No: D o not add to previous draw Performed By: #### 3 6900, 80316, 29937 #### [facility] [address] [place] [address], [facility] Hemoglobin mass conc (Bld) 11.4 g/dL Low 12.0-15.0 [facility] Comment on above: Order Comment: No: D o not add to previous draw Performed By: #### 3 690, 71785, 12715 #### [facility] [address] [place] [address], [facility] MCH Entitic mass (RBC) 25.4 pg Low 27.0-33.0 [facility] Comment on above: Order Comment: No: D o not add to previous draw Performed By: #### 3 6900, , 91074 #### [facility] [address] [place] [address], [facility] MCHC mass conc (RBC) 32.3 g/dL Normal 32.0-35.0 [facility] Comment on above: Order Comment: No: D o not add to previous draw Performed By: #### 3 6900, 13649, 44176 #### [facility] [address] [place] [address], [facility] MCV Entitic volume (RBC) 78.6 fL Low 82.0-98.0 [facility] Comment on above: Order Comment: No: D o not add to previous draw Performed By: #### 3 690, 06999, 22504 #### [facility] [address] [place] [address], [facility] Nucleated RBC/100 WBC Ratio (Bld) 0 % Normal 0-0 [facility] Comment on above: Order Comment: No: D o not add to previous draw Performed By: #### 3 6901, 87147, 11793 #### [facility] [address] [place] [address], [facility] PLAT CNT 280 10*3/uL Normal 150-400 [facility] Comment on above: Order Comment: No: D o not add to previous draw Performed By: #### 3 6901, 26876, 15536 #### [facility] [address] [place] [address], [facility] RBC #/vol (Bld) 4.49 10*6/uL Normal 3.80-5.00 [facility] Comment on above: Order Comment: No: D o not add to previous draw Performed By: #### 3 6901, 81236, 11128 #### [facility] [address] [facility] [place] [address], [facility] WBC #/vol (Bld) 7.38 10*3/uL Normal 4.00-10.60 [facility] Comment on above: Order Comment: No: D o not add to previous draw Performed By: #### 3 6901, 53333, 65906 #### [facility] [address] [facility] [address] Cardiovascular Lab Reporton 04-27-2018 Cardiovascular Lab Report [facility] Pato Kapoor MR #: [id number] Department of Physician: [facility] Dewayne Mcintosh M.D. Division of Service Date: 04/26/2018 Cardiology Birthdate: 1960 Adult Cardiovascular Room #: 3AB 531000 [facility] [address] [address] Cardiovascular Laboratory Report INDICATION: The patient is a 57-year-old woman, who is admitted with symptoms of unstable angina. A stress test yesterday showed apical maría elena-infarct ischemia. She was referred for cardiac catheterization. PROCEDURE: Bilateral selective coronary angiography from the right radial access. METHODS: Procedure was explained to the patient with the risks and benefits. She signed informed consent. She was brought to slabbing machine operator in a fasting state. The right wrist area was prepped and draped in the usual fashion. Tong's test was favorable. Using micropuncture technique, the right radial artery was accessed. A 6-Chilean x 11 cm Hydrophilic sheath was advanced. Verapamil was given through the sheath and heparin was administered intravenously. Bilateral selective coronary angiography was then performed using 6-Chilean JL3.5 and JR5 diagnostic catheters. Catheters were removed. Procedure was concluded. The access sheath was removed and a compression dressing applied for hemostasis. She tolerated the procedure well. She was transferred back to her room. TOTAL FLUORO TIME: 8.11 minutes. TOTAL AIR KERMA: 699 mGy. TOTAL CONTRAST VOLUME: 70 mL. HEMODYNAMICS: AO 155/84, mean 114. CORONARY ANGIOGRAPHY: 1. This is a right dominant circulation. 2. Left main. This arises from left coronary cusp. It bifurcates into left anterior descending and circumflex vessels. The left main has 50% ostial stenosis. 3. Left anterior descending. This has a 99% mid segment stenosis. A second diagonal branch is a small vessel, but have 90% ostial stenosis. 4. Circumflex vessel. This is nondominant, it has a 50% mid segment stenosis following which it gives rise to a very large obtuse marginal branch, which itself has a complex long 99% stenosis. 5. Right coronary artery. This arises from the right coronary cusp. It is a large and dominant vessel. It has 85% hazy proximal segment stenosis and distally there is 95% focal stenosis at the PDA branch. The PLV branch is free of disease. SUMMARY OF THE FINDINGS: Severe 3-vessel coronary artery disease. RECOMMENDATIONS: Given 3-vessel coronary artery disease and diabetes, it is recommended that this patient undergo bypass surgery. Electronically Signed by: Martine Mcintosh M.D. 05/01/2018 12:30 P Martine Mcintosh M.D. Date Dict: 04/26/2018/02:46 P/Martine Mcintosh M.D. Date Trans: 04/27/2018 07:59 A/mmo [id number] cc: Gianfranco Lau D.O. [facility] [address] Normal [facility] LIVER BATTERYon 04-27-2018 Albumin mass conc 3.4 g/dL Low 3.5-5.7 [facility] Comment on above: Order Comment: No: D o not add to previous draw Performed By: #### 3 6901, 77638, 34744 #### [facility] [address] [place] [address], [place] ALKALINE PHOSPH 103 IU/L Normal 34-104 [facility] Comment on above: Order Comment: No: D o not add to previous draw Performed By: #### 3 6901, 81353, 99421 #### [facility] [address] [place] [address], [place] ALT enzyme act/vol 9 U/L Normal 7-52 [facility] Comment on above: Order Comment: No: D o not add to previous draw Performed By: #### 3 6901, 29217, 54036 #### [facility] [address] [place] [address], [place] AST enzyme act/vol 9 U/L Low 13-39 [facility] Comment on above: Order Comment: No: D o not add to previous draw Performed By: #### 3 7601, 85696, 62024 #### [facility] [address] [place] [address], [place] Bilirubin mass conc 0.2 mg/dL Low 0.3-1.0 [facility] Comment on above: Order Comment: No: D o not add to previous draw Performed By: #### 3 3851, 03772, 84989 #### [facility] [address] [place] [address], [place] Bilirubin.direct mass conc 0.0 mg/dL Normal 0.0-0.2 [facility] Comment on above: Order Comment: No: D o not add to previous draw Performed By: #### 3 6901, 56802, 29896 #### [address] Protein mass conc 6.1 g/dL Normal 6.0-8.3 [facility] Comment on above: Order Comment: No: D o not add to previous draw Performed By: #### 3 6901, 27815, 66340 #### [facility] [address] MRI BRAIN W WO CONTRASTon MRI BRAIN W WO CONTRAST [facility] Department of Radiology [address] [place] [id number] ======== Patient Name: PATO CORRAL : 1960 Sex: F Age: Race: White Pt. Location: [id number] Patient Status: I Ordered Date: 04/27/2018 10:35:00 AM Completed Date: 04/27/2018 04:58 PM Requesting Provider: KAREN RUVALCABA Attending Provider: FELIPE HUGO Report Copy To: Signs & Symptoms: Headaches History: Patient history not available Comments: R/O Tumor, pre op cabg. CT rec MRI. cabg thur am Exam: MRI BRAIN W WO CONTRAST ======== MRI BRAIN W WO CONTRAST 04/27/2018 4:58 PM EST SIGN AND SYMPTOMS: Headaches TECHNOLOGIST COMMENTS: Hypoattenuating area on CT brain, daily headaches, memory loss, dizziness, HTN QUESTION FOR RADIOLOGIST: R/O Tumor, pre op cabg. CT rec MRI. CABG there is a morning. PROTOCOL: The following pulse sequences were utilized when imaging the brain: sagittal T1, diffusion weighted imaging, axial T2 FLAIR, axial T2 fat-sat, axial T1, axial GRE. Post contrast imaging in sagittal 3D and axial 3D. COMPARISON: None. FINDINGS: MR brain: Extra axial spaces: Age appropriate. Hemorrhage: Few small foci of susceptibility are seen within the left frontal lobe corresponding to the area of hypoattenuation on comparison CT. This suggests petechial hemorrhage possibly from remote lacunar infarct. Ventricular system: Within normal limits. Basal cisterns: Within normal limits and not effaced. Cerebral parenchyma: Extensive periventricular and subcortical white matter T2/flair hyperintensities are present bilaterally. There is no acute diffusion restriction. Small foci of T2 shine through are seen within the left frontal lobe near the vertex and within the splenium of the corpus callosum. Midline shift: None. Cerebellum: Small developmental venous anomaly noted in the right cerebellar hemisphere. Brainstem: Within normal limits. OTHER: Calvarium: Normal marrow signal. Vascular system: Left vertebral artery is not well seen. Diminutive caliber suspected. Otherwise large cerebral arteries including the basilar artery appear patent. Visualized Paranasal sinuses: Within normal limits. Visualized Orbits: Within normal limits. Visualized upper cervical spine: Within normal limits. Sella and skull base: Within normal limits. IMPRESSION: * No evidence of acute ischemic stroke or intracranial mass. Area of hypoattenuation within the left frontal lobe on comparison CT corresponds to an area of severe microvascular ischemic disease versus possible remote lacunar infarct. * Periventricular and subcortical white matter hyperintensities demonstrated bilaterally most likely representing severe chronic microvascular ischemic disease. However, there is an area of hyperintensity within the splenium of the corpus callosum which suggests the possibility of demyelinating disease. Approved by:Riaz Mohr on 04/27/2018 5:30 PM EST. I, Ruth Yen, have reviewed the images and report and concur with these findings. Electronically signed by:Ruth Yen. Transcribed by: [email or web address], User Resident: SHANICE MOHR Electronically Signed by: RUTH YEN @ 04/28/2018 03:26 PM I personally read this/these film(s) with this resident Normal [facility] Comment on above: Order Comment: No: D o not add to previous draw POC GLUCOSE LABon 04-27-2018 Glucose mass conc 294 mg/dL High 70-100 [facility] Comment on above: Performed By: #### 3 6901, 57902, 97395 #### [facility] [address] [place] [address], [place] Glucose mass conc 137 mg/dL High 70-100 [facility] Comment on above: Performed By: #### 3 6901, 96367, 29676 #### [facility] [address] [place] [address], [place] Glucose mass conc 172 mg/dL High 70-100 [facility] Comment on above: Performed By: #### 3 6901, 96392, 20132 #### [facility] [address] [place] [address], [facility] TYPE AND SCREENon 04-27-2018 ABO INTERPRETATION O Normal [facility] Comment on above: Performed By: #### 3 6901, 17974, 79177 #### [facility] [address] [place] [address], [facility] RH INTERPRETATION Positive Normal [facility] Comment on above: Performed By: #### 3 6901, 84057, 28252 #### [facility] [address] [place] [address], [facility] UFH HEPARIN ASSAYon 04-27-19 19 UNFRACTIONATED HEPARIN 0.15 IU/mL Critically low 0.30-0.70 [facility] Comment on above: Result Comment: Radha roxaban and Apixaban will interfere with the anti Xa assay used to monitor UFH and LMWH. RESULTS CHECKED AND CALLED. ACCURATELY READ BACK BY GRETTA EDWARDS RN AT 2238 Performed By: #### 3 6901, 61280, 16011 #### [facility] [address] [place] [address], [place] UNFRACTIONATED HEPARIN <0.10 Critically low 0.30-0.70 [facility] Comment on above: Result Comment: Pike roxaban and Apixaban will interfere with the anti Xa assay used to monitor UFH and LMWH. result calld to RODRIGO MCCLURE RN 1455 Performed By: #### 3 8038, 01088, 03559 #### [facility] [address] UNFRACTIONATED HEPARIN <0.10 Critically low 0.30-0.70 [facility] Comment on above: Result Comment: Radha roxaban and Apixaban will interfere with the anti Xa assay used to monitor UFH and LMWH. RESULTS CHECKED AND CALLED. ACCURATELY READ BACK BY MADALYN DAO RN AT 620 Performed By: #### 3 9917, 16068, 41894 #### [facility] [address] USV ARTERIAL DUPLEX CAROTID BILATERAL COMPLETEon 04-27-2018 USV ARTERIAL DUPLEX CAROTID BILATERAL COMPLETE [facility] Department of Radiology [address] [place], [place] [id number] ======== Patient Name: PATO CORRAL : 1960 Sex: F Age: Race: White Pt. Location: [id number] Patient Status: I Ordered Date: 04/27/2018 8:00:00 AM Completed Date: 04/27/2018 10:29 AM Requesting Provider: KAREN RUVALCABA Attending Provider: FELIPE HUGO Report Copy To: Signs & Symptoms: CERVICAL BRUIT History: Patient history not available Comments: R/O Stenosis Exam: USV ARTERIAL DUPLEX CAROTID BILATERAL COMPLETE ======== Final Bilateral Cerebrovascular Duplex Scan Patient: PATO CORRAL : 1960 Study Date: 04/27/2018 08:17:37 Referring Physician: KAREN RUVALCABA Burner Machine Operator: DIANA GARCIA RDMS Ordering Physician: KAREN RUVALCABA Primary Care Physician: GIANFRANCO LAU Patient Location: Inpatient Ordering Diagnosis: CERVICAL BRUIT Indications: CPT Code: 66789 Cerebrovascular Duplex Scan Technique: The carotid arteries, including common carotid, internal and external carotid artery were evaluated bilaterally. This was done using real-time imaging with velocity measurement, color Doppler, and spectral analysis.The vertebral arteries were evaluated bilaterally using color ultrasound and velocity measurement. Impression 1.Antegrade flow of both vertebral arteries. 2.Stenosis in the range of 0-15% in both internal carotid arteries. Reading Physician: SHIRA BENITES MD, RVT, RPVI Electronically signed on 04/30/2018 15:37:42. Patient: PATO CORRAL : 1960 Study Date: 04/27/2018 08:17:37 Page 2 of [address] [place] [id number] Noninvasive Vascular Laboratory Division of Vascular and Endovascular Surgery [facility] [phone] Clinical [phone] Transcribed by: [email or web address] Resident: Electronically Signed by: SHIRA BENITES @ 04/30/2018 03:37 PM Normal [facility] Comment on above: Order Comment: No: D o not add to previous draw USV VENOUS LOWER EXTREMITY M APPING BILATERALon 04-27-2018 USV VENOUS LOWER EXTREMITY MAPPING BILATERAL [facility] Department of Radiology [address] [place] [address] ======== Patient Name: PATO CORRAL : 1960 Sex: F Age: Race: White Pt. Location: [address] [place] [address] Patient Status: I Ordered Date: 04/27/2018 8:00:00 AM Completed Date: 04/27/2018 10:28 AM Requesting Provider: KAREN RUVALCABA Attending Provider: FELIPE HUGO Report Copy To: Signs & Symptoms: PERIPHERAL VASCULAR DISEASE History: Patient history not available Comments: R/O OBSTRUCTION, preop CABG Exam: USV VENOUS LOWER EXTREMITY MAPPING BILATERAL ======== Final Bilateral LE Saphenous Vein Mapping Patient: PATO CORRAL : 1960 Study Date: 04/27/2018 09:07:49 Referring Physician: KAREN RUVALCABA Burner Machine Operator: DIANA GARCIA RDMS Ordering Physician: KAREN RUVALCABA Primary Care Physician: GIANFRANCO LAU Patient Location: Inpatient Ordering Diagnosis: PERIPHERAL VASCULAR DISEASE Indications: CPT Code: 73497W LE Saphenous Vein Mapping Technique: The greater saphenous vein and small saphenous vein was evaluated in its entirety. It was examined for compressibility and measured in the transverse view. Findings Great Saphenous Vein R GSV (cm) Compressibility Character L GSV (cm) Compressibility Character Prox Thigh 0.4 0.5 Mid Thigh 0.2 0.3 Dist Thigh 0.3 0.3 Prox Calf 0.2 0.2 Mid Calf 0.2 0.2 Dist Calf 0.2 0.2 Length (cm) Appearance Small Saphenous Vein R SSV (cm) Character L SSV (cm) Character Prox Calf 0.5 0.2 Mid Calf 0.3 0.2 Dist Calf 0.2 0.2 Length (cm) Appearance Impression 1.measurments as in table Reading Physician: Sohail Tejeda Electronically signed on 04/30/2018 14:46:11. Patient: PATO CORRAL : 1960 Study Date: 04/27/2018 09:07:49 Page 2 of 2 [address] [place] [address] Noninvasive Vascular Laboratory Division of Vascular and Endovascular Surgery [facility] [phone] Clinical [phone] Transcribed by: InterfaceUser, Result Resident: Electronically Signed by: SOHAIL TEJEDA @ 04/30/2018 02:46 PM Normal [facility] Comment on above: Order Comment: No: D o not add to previous draw *MRSA/MSSA DNA NASALon 04-26 *MRSA/MSSA DNA NASAL Clinical Report: (D) Specimen: NASAL SWAB Collected: 04/26/2018 17:30 Status: Final Last Updated: 04/27/2018 15:27 MSSA DNA (Final) Negative MRSA DNA (Final) Negative Normal [facility] Comment on above: Performed By: #### 3 6901, 97838, 74379 #### [facility] [address] APTTon 04-26-2018 aPTT Coag time (Bld) 168.6 s Critically high 25.0-35.0 [facility] Comment on above: Order Comment: No: D o not add to previous draw Result Comment: ALL RESULTS MUST BE INTERPRETED WITH RESPECT TO BLOOD DRAWING ARTIFACT OR DILUTION ERROR OF ANTICOAGULANT AT THE TIME OF SAMPLING. THE APTT SHOULD NOT BE USED TO MONITOR UNFRACTIONATED HEPARIN THERAPY, THIS LABORATORY NO LONGER HAS AN ESTABLISHED THERAPEUTIC RANGE BASED ON THE APTT. IT IS RECOMMENDED THAT THE UFH - HEPARIN ASSAY (ANTI-XA ACTIVITY) BE USED FOR THIS PURPOSE. APTT RESULT REPEATED AND CONFIRMED RESULTS CHECKED AND CALLED. ACCURATELY READ BACK BY ANDREAS BERNARD RN at 16:26 CLINICAL SIGNIFICANCE OF THE PTT RESULT IS QUESTIONABLE IN THE PRESENCE OF HEPARIN. Performed By: #### 3 6900, 31158, 27232 #### [facility] [address] [place] [address], [facility] CBC COMPLETE BLOOD COUNTon 0 - Erythrocyte distribution width Ratio (RBC) 14.2 % Normal 11.5-15.0 [facility] Comment on above: Order Comment: No: D o not add to previous draw Performed By: #### 3 6900, , 65229 #### [facility] [address] [place] [address], [facility] Hematocrit Volume Fraction (Bld) 36.5 % Normal 36.0-45.0 [facility] Comment on above: Order Comment: No: D o not add to previous draw Performed By: #### 3 6900, , 39442 #### [facility] [address] [place] [address], [facility] Hemoglobin mass conc (Bld) 11.6 g/dL Low 12.0-15.0 [facility] Comment on above: Order Comment: No: D o not add to previous draw Performed By: #### 3 6900, , 36924 #### [facility] [address] [place] [address], [facility] MCH Entitic mass (RBC) 25.1 pg Low 27.0-33.0 [facility] Comment on above: Order Comment: No: D o not add to previous draw Performed By: #### 3 6900, 21830, 50908 #### [facility] [address] [place] [address], [facility] MCHC mass conc (RBC) 31.8 g/dL Low 32.0-35.0 [facility] Comment on above: Order Comment: No: D o not add to previous draw Performed By: #### 3 6900, , 17375 #### [facility] [address] [place] [address], [facility] MCV Entitic volume (RBC) 79.0 fL Low 82.0-98.0 [facility] Comment on above: Order Comment: No: D o not add to previous draw Performed By: #### 3 6901, 30690, 44397 #### [facility] [address] [place] [address], [facility] Nucleated RBC/100 WBC Ratio (Bld) 0 % Normal 0-0 [facility] Comment on above: Order Comment: No: D o not add to previous draw Performed By: #### 3 6901, 95081, 55776 #### [facility] [address] [place] [address], [facility] PLAT CNT 289 10*3/uL Normal 150-400 [facility] Comment on above: Order Comment: No: D o not add to previous draw Performed By: #### 3 6900, , 65801 #### [facility] [address] [place] [id number], [facility] RBC #/vol (Bld) 4.62 10*6/uL Normal 3.80-5.00 [facility] Comment on above: Order Comment: No: D o not add to previous draw Performed By: #### 3 6900, 18768, 79040 #### [facility] [address] [place] [address], [facility] WBC #/vol (Bld) 7.32 10*3/uL Normal 4.00-10.60 [facility] Comment on above: Order Comment: No: D o not add to previous draw Performed By: #### 3 6900, 16855, 99047 #### [facility] [address] [place] [address], [place] Erythrocyte distribution width Ratio (RBC) 14.4 % Normal 11.5-15.0 [facility] Comment on above: Order Comment: No: D o not add to previous draw Performed By: #### 3 6900, 88435, 49183 #### [facility] [address] Hematocrit Volume Fraction (Bld) 35.6 % Low 36.0-45.0 [facility] Comment on above: Order Comment: No: D o not add to previous draw Performed By: #### 3 6900, 98959, 37831 #### [facility] [address] [place] [id number], [facility] Hemoglobin mass conc (Bld) 11.7 g/dL Low 12.0-15.0 [facility] Comment on above: Order Comment: No: D o not add to previous draw Performed By: #### 3 6900, , 00073 #### [facility] [address] [place] [address], [facility] MCH Entitic mass (RBC) 25.7 pg Low 27.0-33.0 [facility] Comment on above: Order Comment: No: D o not add to previous draw Performed By: #### 3 6900, , 46120 #### [facility] [address] [place] [address], [facility] MCHC mass conc (RBC) 32.9 g/dL Normal 32.0-35.0 [facility] Comment on above: Order Comment: No: D o not add to previous draw Performed By: #### 3 6900, , 40772 #### [facility] [address] [place] [address], [facility] MCV Entitic volume (RBC) 78.1 fL Low 82.0-98.0 [facility] Comment on above: Order Comment: No: D o not add to previous draw Performed By: #### 3 6900, 34207, 22231 #### [facility] [address] [place] [address], [facility] Nucleated RBC/100 WBC Ratio (Bld) 0 % Normal 0-0 [facility] Comment on above: Order Comment: No: D o not add to previous draw Performed By: #### 3 6900, 30075, 44903 #### [facility] [address] [facility]. [address] PLAT CNT 284 10*3/uL Normal 150-400 [facility] Comment on above: Order Comment: No: D o not add to previous draw Performed By: #### 3 6901, 36116, 52337 #### [facility] [address] RBC #/vol (Bld) 4.56 10*6/uL Normal 3.80-5.00 [facility] Comment on above: Order Comment: No: D o not add to previous draw Performed By: #### 3 6901, 33052, 76753 #### [facility] [address] [facility]. [address] WBC #/vol (Bld) 7.95 10*3/uL Normal 4.00-10.60 [facility] Comment on above: Order Comment: No: D o not add to previous draw Performed By: #### 3 6901, 81471, 07313 #### [facility] [address] [facility]. [address] CHEST AND LATERALon 04-26-19 19 CHEST AND LATERAL [facility] Department of Radiology [address] [place], [place] [phone] ======== Patient Name: PATO CORRAL : 1960 Sex: F Age: Race: White Pt. Location: [id number] Patient Status: I Ordered Date: 04/25/2018 8:55:00 PM Completed Date: 04/25/2018 10:36 PM Requesting Provider: ART CEBALLOS Attending Provider: OANH, WANG R Report Copy To: Signs & Symptoms: Unstable Angina History: Patient history not available Comments: R/O Cardiomegaly, when patient is stable Exam: CHEST AND LATERAL ======== CHEST AND LATERAL 04/25/2018 10:36 PM EST SIGNS AND SYMPTOMS: Unstable Angina TECHNOLOGIST COMMENTS: Cardiomegaly, pre op line placement QUESTION FOR THE RADIOLOGIST: R/O Cardiomegaly, when patient is stable PROTOCOL: AP(PA) and Lateral views were obtained. COMPARISON: None FINDINGS: The heart mediastinum are unremarkable. Lungs are free of infiltrates or effusions. Poor respiratory effort. Degenerative changes dorsal spine. IMPRESSION: No evidence of cardiomegaly. Unremarkable chest. Electronically signed by:Antwon Groves. Transcribed by: [email or web address], User Resident: Electronically Signed by: ANTWON GROVES @ 04/26/2018 08:21 AM Normal [facility] Comment on above: Order Comment: R/O C ardiomegaly, when patient is stable CT BRAIN WO CONTRASTon 04-26 CT BRAIN WO CONTRAST [facility] Department of Radiology [address] [place] [phone] ======== Patient Name: PATO CORRAL : 1960 Sex: F Age: Race: White Pt. Location: [id number] Patient Status: I Ordered Date: 04/26/2018 5:25:00 PM Completed Date: 04/26/2018 07:04 PM Requesting Provider: KAREN RUVALCABA Attending Provider: FELIPE HUGO Report Copy To: Signs & Symptoms: Headache History: Patient history not available Comments: Other Exam: CT BRAIN WO CONTRAST ======== CT BRAIN WO CONTRAST 04/26/2018 7:04 PM EST SIGNS AND SYMPTOMS: Headache TECHNOLOGIST COMMENTS: Headache x3 months. QUESTION FOR THE RADIOLOGIST: Other PROTOCOL: Axial CT images of the head were obtained without IV contrast. TECHNIQUE:Multi-detect or CT axial slices of the brain were obtained without IV contrast. Helical,sagittal, coronal, and 3-D reconstructions were performed and viewed on a separate workstation. Appropriate CT dose lowering techniques were utilized. COMPARISON: None. FINDINGS: Nonspecific area of faint hypoattenuation in the subcortical white matter of the anterior left frontal lobe (series 4 image 112). There is no shift of the midline structures, acute intracranial bleeding, mass effects, or evidence of acute ischemia. The ventricular system is normal in size. The brainstem and the cerebellum are unremarkable. The visualized intraorbital contents, the visualized paranasal sinuses, and the infratemporal soft tissues show no acute abnormality. The osseous structures in the skull base and the calvarium show no abnormality. IMPRESSION: 1. No acute intracranial pathology. 2. Small nonspecific area of hypoattenuation in the subcortical white matter of the anterior left frontal lobe (series 4 image 112). Further evaluation with MRI brain recommended as small lesion/mass cannot be excluded. Approved by:Fern Joseph on 04/26/2018 7:25 PM EST. I, Ruth Yen, have reviewed the images and report and concur with these findings. Electronically signed by:Ruth Yen. Transcribed by: [id number], User Resident: FERN JOSEPH Electronically Signed by: RUTH YEN @ 04/27/2018 03:17 PM I personally read this/these film(s) with this resident Normal [facility] Comment on above: Order Comment: No: D o not add to previous draw LIPID PROFILEon 04-26-2018 Cholesterol in HDL mass conc 39 mg/dL Normal 23-92 [facility] Comment on above: Result Comment: Slig ht variation in normal range could be due to gender and/or age. HDL CHOLESTEROL REFERENCE RANGE: 20 years and older Cardiovascular Risk > or =60 mg/dL Desirable 40 TO 59 mg/dL Low Risk <40 mg/dL High Risk Performed By: #### 3 6901, 89476, 34948 #### [facility] [address] [place] [address], [facility] Cholesterol in LDL mass conc 54 mg/dL Normal 0-130 [facility] Comment on above: Result Comment: LDL IS A CALCULATION LDL IS ONLY VALID IF THE TRIG IS LESS THAN 400. Performed By: #### 3 6901, 18864, 90526 #### [facility] [address] [place] [address], [facility] Cholesterol mass conc 279 mg/dL High 120-200 [facility] Comment on above: Result Comment: CHOL ESTEROL REFERENCE RANGE: 20 YEARS AND OLDER CARDIOVASCULAR RISK Less than 200 mg/dl Low Risk 200 to 239 mg/dl Borderline Risk 240 mg/dl and greater High Risk Performed By: #### 3 6901, 33248, 87818 #### [facility] [address] [place] [address], [facility] Cholesterol.total/C holesterol in HDL mass ratio 7.2 {ratio} High .0-4.5 [facility] Comment on above: Performed By: #### 3 0111, 40653, 07675 #### [facility] [address] [place] [address], [place] NON-HDL CHOLESTEROL 240 mg/dL Normal [facility] Comment on above: Performed By: #### 3 6901, 44478, 50333 #### [facility] [address] [place] [address], [place] Triglyceride mass conc 928 mg/dL High 40-149 [facility] Comment on above: Result Comment: TRIG LYCERIDE REFERENCE RANGE: 20 YEARS AND OLDER CARDIOVASCULAR RISK LESS THAN 150 mg/dl LOW RISK 150 TO 199 mg/dl BORDERLINE RISK 200 mg/dl AND GREATER HIGH RISK Performed By: #### 3 6901, 55536, 46772 #### [facility] [address] [place] [address], [facility] VLDL CHOL 186 mg/dL High 0-40 [facility] Comment on above: Performed By: #### 3 6901, 16018, 21372 #### [facility] [address] [place] [address], [facility] POC GLUCOSE LABon 04-26-2018 Glucose mass conc 190 mg/dL High 70-100 [facility] Comment on above: Performed By: #### 3 6901, 21648, 71318 #### [facility] [address] [place] [address], [facility] Glucose mass conc 141 mg/dL High 70-100 [facility] Comment on above: Performed By: #### 3 6901, 91305, 10313 #### [facility] [address] [place] [address], [facility] Glucose mass conc 154 mg/dL High 70-100 [facility] Comment on above: Performed By: #### 3 6901, 73283, 41854 #### [facility] [address] [place] [address], [facility] Glucose mass conc 164 mg/dL High 70-100 [facility] Comment on above: Performed By: #### 3 6901, 31309, 92373 #### [facility] [address] [place] [address], [facility] PROTHROMBIN TIMEon 9 INR Coag RelTime (PPP) 1.01 {INR} Normal 0.91-1.16 [facility] Comment on above: Order Comment: No: D o not add to previous draw Result Comment: ACCC P RECOMMENDED INR FOR WARFARIN THERAPY ------ ------- CONDITION INR PROPHYLAXIS OF VENOUS THROMBOSIS 2-3 (HIGH-RISK SURGERY) TREATMENT OF VENOUS THROMBOSIS 2-3 TREATMENT OF PULMONARY EMBOLISM 2-3 PREVENTION OF SYSTEMIC EMBOLISM: 2-3 ACUTE MYOCARDIAL INFARCTION TISSUE HEART VALVES VALVULAR HEART DISEASE ATRIAL FIBRILLATION RECURRENT SYSTEMIC EMBOLISM MECHANICAL HEART VALVE 2.5-3.5 FROM: ORAL ANTICOAGULANTS. MECHANISM OF ACTION, CLINICAL EFFECTIVENESS, AND OPTIMAL THERAPEUTIC RANGE. CHEST 1995;108:231S-246S. Performed By: #### 3 6901, 33420, 28013 #### [facility] [address] [facility]. [address] Prothrombin time (PT) Coag time (PPP) 13.3 s Normal 12.3-14.8 [facility] Comment on above: Order Comment: No: D o not add to previous draw Result Comment: ALL RESULTS MUST BE INTERPRETED WITH RESPECT TO BLOOD DRAWING ARTIFACT OR DILUTION ERROR OF ANTICOAGULANT AT THE TIME OF SAMPLING. Performed By: #### 3 6901, 20508, 98164 #### [facility] [address] [place] [address], [facility] TROPONIN-Ion 04-26-2018 Troponin I.cardiac mass conc 0.01 ng/mL Normal 0.00-0.04 [facility] Comment on above: Order Comment: No: D o not add to previous draw Result Comment: REFE RENCE RANGES: 0.00 - 0.04 ng/ml NORMAL 0.05 - 0.50 ng/ml INDETERMINATE > 0.50 ng/ml CONSISTENT WITH AN M.I. Performed By: #### 3 6901, [id number], [id number] #### [facility] [address] [place] [address], [facility] Troponin I.cardiac mass conc 0.01 ng/mL Normal 0.00-0.04 [facility] Comment on above: Order Comment: No: D o not add to previous draw Result Comment: REFE RENCE RANGES: 0.00 - 0.04 ng/ml NORMAL 0.05 - 0.50 ng/ml INDETERMINATE > 0.50 ng/ml CONSISTENT WITH AN M.I. Performed By: #### 3 [id number], [id number], [id number] #### [facility] [address] [place] [address], [facility] UFH HEPARIN ASSAYon 04-26-19 19 UNFRACTIONATED HEPARIN <0.10 Critically low 0.30-0.70 [facility] Comment on above: Result Comment: Pike roxaban and Apixaban will interfere with the anti Xa assay used to monitor UFH and LMWH. RESULTS CHECKED AND CALLED. ACCURATELY READ BACK BY MADALYN HOLLIDAY RN AT 21:45 Performed By: #### 3 6901, [id number], [id number] #### [facility] [address] [facility] [place] [address], [facility] UNFRACTIONATED HEPARIN >1.00 Critically high 0.30-0.70 [facility] Comment on above: Order Comment: No: D o not add to previous draw Result Comment: Radha roxaban and Apixaban will interfere with the anti Xa assay used to monitor UFH and LMWH. UFH = 1.12 UFH added per protocol RESULTS CHECKED AND CALLED. ACCURATELY READ BACK BY ANDREAS BERNARD RN at 16:26 Performed By: #### 3 690, [id number], [id number] #### [facility] [address] [place] [address], [facility] UNFRACTIONATED HEPARIN 0.14 IU/mL Critically low 0.30-0.70 [facility] Comment on above: Result Comment: Radha roxaban and Apixaban will interfere with the anti Xa assay used to monitor UFH and LMWH. Results called. Accurately read back by ANDREAS BERNARD RN AT 0800 Performed By: #### 3 [id number], [id number], [id number] #### [facility] [address] [place] [address], [facility] APTTon 04-25-2018 aPTT Coag time (Bld) 26.8 s Normal 25.0-35.0 [facility] Comment on above: Order Comment: No: D o not add to previous draw Result Comment: ALL RESULTS MUST BE INTERPRETED WITH RESPECT TO BLOOD DRAWING ARTIFACT OR DILUTION ERROR OF ANTICOAGULANT AT THE TIME OF SAMPLING. THE APTT SHOULD NOT BE USED TO MONITOR UNFRACTIONATED HEPARIN THERAPY, THIS LABORATORY NO LONGER HAS AN ESTABLISHED THERAPEUTIC RANGE BASED ON THE APTT. IT IS RECOMMENDED THAT THE UFH - HEPARIN ASSAY (ANTI-XA ACTIVITY) BE USED FOR THIS PURPOSE. Performed By: #### 1 0054 #### [facility] [address] [place] [address], [facility] BASIC METABOLIC PANELon 04-15 Calcium mass conc 9.1 mg/dL Normal 8.6-10.3 [facility] Comment on above: Order Comment: No: D o not add to previous draw Performed By: #### 1 0054 #### [facility] [address] [place] [address], [facility] Chloride molar conc 100 mmol/L Normal 98-107 [facility] Comment on above: Order Comment: No: D o not add to previous draw Performed By: #### 1 0054 #### [facility] [address] [place] [address], [facility] CO2 molar conc 24 mmol/L Normal 21-31 [facility] Comment on above: Order Comment: No: D o not add to previous draw Performed By: #### 1 0054 #### [facility] [address] [place] [address], [facility] Creatinine mass conc 0.70 mg/dL Normal 0.60-1.20 [facility] Comment on above: Order Comment: No: D o not add to previous draw Performed By: #### 1 0054 #### [facility] [address] [place] [address], [facility] GFR/1.73 sq M predicted among blacks MDRD vol rate/area (S/P/Bld) mL/min/{1.73_m2} Normal >60 [facility] Comment on above: Order Comment: No: D o not add to previous draw Performed By: #### 1 0054 #### [facility] [address] [place] [address], [facility] GFR/1.73 sq M predicted among non-blacks MDRD vol rate/area (S/P/Bld) mL/min/{1.73_m2} Normal >60 [facility] Comment on above: Order Comment: No: D o not add to previous draw Performed By: #### 1 0054 #### [facility] [address] [place] [address], [facility] Glucose mass conc 157 mg/dL High 70-100 [facility] Comment on above: Order Comment: No: D o not add to previous draw Performed By: #### 1 0054 #### [facility] [address] [facility] [place] [address], [facility] Potassium molar conc 3.5 mmol/L Normal 3.5-5.1 [facility] Comment on above: Order Comment: No: D o not add to previous draw Performed By: #### 1 0054 #### [facility] [address] [place] [address], [facility] Sodium molar conc 134 mmol/L Low 136-145 [facility] Comment on above: Order Comment: No: D o not add to previous draw Performed By: #### 1 0054 #### [facility] [address] [place] [address], [facility] Urea nitrogen mass conc 10 mg/dL Normal 7-25 [facility] Comment on above: Order Comment: No: D o not add to previous draw Performed By: #### 1 0054 #### [facility] [address] [place] [address], [facility] CBC W/DIFFon 04-25-2018 ABS BASOPHILS 0.0 10*3/uL Normal 0.0-0.2 [facility] Comment on above: Performed By: #### 1 0054 #### [facility] [address] ABS IMM GRANS 0.0 10*3/uL Normal 0.0-0.2 [facility] Comment on above: Performed By: #### 1 0054 #### [facility] [address] ABS NEUTROPHILS 5.2 10*3/uL Normal 1.6-7.6 [facility] Comment on above: Performed By: #### 1 0054 #### [facility] [address] Basophils #/vol (Bld) 0.4 % Normal 0.0-1.0 [facility] Comment on above: Performed By: #### 1 0054 #### [facility] [address] Eosinophils #/vol (Bld) 0.4 10*3/uL Normal 0.0-0.5 [facility] Comment on above: Performed By: #### 1 0054 #### [facility] [address] Eosinophils/100 WBC (Bld) 3.7 % Normal 0.0-6.0 [facility] Comment on above: Performed By: #### 1 0054 #### [facility] [address] Erythrocyte distribution width Ratio (RBC) 14.4 % Normal 11.5-15.0 [facility] Comment on above: Performed By: #### 1 0054 #### [facility] [address] Hematocrit Volume Fraction (Bld) 35.9 % Low 36.0-45.0 [facility] Comment on above: Performed By: #### 1 0054 #### [facility] [address] Hemoglobin mass conc (Bld) 11.7 g/dL Low 12.0-15.0 [facility] Comment on above: Performed By: #### 1 0054 #### [facility] [address] IMMATURE GRANS 0.2 % Normal 0.0-1.0 [facility] Comment on above: Performed By: #### 1 0054 #### [facility] [address] Lymphocytes #/vol (Bld) 3.4 10*3/uL Normal 1.2-4.0 [facility] Comment on above: Performed By: #### 1 0054 #### [facility] [address] Lymphocytes/100 WBC (Bld) 35.1 % Normal 20.0-45.0 [facility] Comment on above: Performed By: #### 1 0054 #### [facility] [address] MCH Entitic mass (RBC) 25.2 pg Low 27.0-33.0 [facility] Comment on above: Performed By: #### 1 0054 #### [facility] [address] MCHC mass conc (RBC) 32.6 g/dL Normal 32.0-35.0 [facility] Comment on above: Performed By: #### 1 0054 #### [facility] [address] MCV Entitic volume (RBC) 77.4 fL Low 82.0-98.0 [facility] Comment on above: Performed By: #### 1 0054 #### [facility] [address] Monocytes #/vol (Bld) 0.8 10*3/uL Normal 0.1-1.0 [facility] Comment on above: Performed By: #### 1 0054 #### [facility] [address] [facility] [place] [address], [facility] MONOS 7.7 % Normal 5.0-12.0 [facility] Comment on above: Performed By: #### 1 0054 #### [facility] [address] [place] [address], [facility] Neutrophils/100 WBC (Bld) 52.9 % Normal 40.0-72.0 [facility] Comment on above: Performed By: #### 1 0054 #### [facility] [address] Nucleated RBC/100 WBC Ratio (Bld) 0 % Normal 0-0 [facility] Comment on above: Performed By: #### 1 0054 #### [facility] [address] [facility] [place] [address], [facility] PLAT CNT 277 10*3/uL Normal 150-400 [facility] Comment on above: Performed By: #### 1 0054 #### [facility] [address] [facility] [place] [address], [facility] RBC #/vol (Bld) 4.64 10*6/uL Normal 3.80-5.00 [facility] Comment on above: Performed By: #### 1 0054 #### [facility] [address] [place] [address], [facility] WBC #/vol (Bld) 9.81 10*3/uL Normal 4.00-10.60 [facility] Comment on above: Performed By: #### 1 0054 #### [facility] [address] MAGNESIUM BLOODon 04-25-2018 Magnesium mass conc 1.7 mg/dL Low 1.9-2.7 [facility] Comment on above: Order Comment: No: D o not add to previous draw Performed By: #### 1 0054 #### [facility] [address] [place] [address], [facility] POC GLUCOSE LABon 04-25-2018 Glucose mass conc 125 mg/dL High 70-100 [facility] Comment on above: Performed By: #### 3 6901, [id number], [id number] #### [facility] [address] [place] [address], [facility] PROTHROMBIN TIMEon 9 INR Coag RelTime (PPP) 0.95 {INR} Normal 0.91-1.16 [facility] Comment on above: Order Comment: No: D o not add to previous draw Result Comment: ACCC P RECOMMENDED INR FOR WARFARIN THERAPY ------ ------- CONDITION INR PROPHYLAXIS OF VENOUS THROMBOSIS 2-3 (HIGH-RISK SURGERY) TREATMENT OF VENOUS THROMBOSIS 2-3 TREATMENT OF PULMONARY EMBOLISM 2-3 PREVENTION OF SYSTEMIC EMBOLISM: 2-3 ACUTE MYOCARDIAL INFARCTION TISSUE HEART VALVES VALVULAR HEART DISEASE ATRIAL FIBRILLATION RECURRENT SYSTEMIC EMBOLISM MECHANICAL HEART VALVE 2.5-3.5 FROM: ORAL ANTICOAGULANTS. MECHANISM OF ACTION, CLINICAL EFFECTIVENESS, AND OPTIMAL THERAPEUTIC RANGE. CHEST 1995;108:[id number]. Performed By: #### 1 0054 #### [facility] [address] [place] [address], [facility] Prothrombin time (PT) Coag time (PPP) 12.7 s Normal 12.3-14.8 [facility] Comment on above: Order Comment: No: D o not add to previous draw Result Comment: ALL RESULTS MUST BE INTERPRETED WITH RESPECT TO BLOOD DRAWING ARTIFACT OR DILUTION ERROR OF ANTICOAGULANT AT THE TIME OF SAMPLING. Performed By: #### 1 0054 #### [facility] [address] [facility] [place] [address] TROPONIN-Ion 04-25-2018 Troponin I.cardiac mass conc 0.01 ng/mL Normal 0.00-0.04 [facility] Comment on above: Order Comment: No: D o not add to previous draw Result Comment: REFE RENCE RANGES: 0.00 - 0.04 ng/ml NORMAL 0.05 - 0.50 ng/ml INDETERMINATE > 0.50 ng/ml CONSISTENT WITH AN M.I. Performed By: #### 1 0054 #### [facility] [address] TSH3 WITH REFLEXon 9 T4 free mass conc 0.63 ng/dL Low 0.71-1.85 [facility] Comment on above: Performed By: #### 1 0054 #### [facility] [address] [facility]. [address] TSH 3RD GENERATION 0.85 uIU/mL Normal 0.34-5.60 [facility] Comment on above: Performed By: #### 1 0054 #### [facility] [address] [facility]. [address] POC GLUCOSE LABon 03-22-2018 Glucose mass conc 193 mg/dL High 70-100 [facility] Comment on above: Performed By: #### 1 0054 #### [facility] [address] [facility]. [address] Glucose mass conc 174 mg/dL High 70-100 [facility] Comment on above: Performed By: #### 1 0054 #### [facility] [address] [facility] [place] [address], [facility] CBC W/DIFFon 03-21-2018 ABS BASOPHILS 0.0 10*3/uL Normal 0.0-0.2 [facility] Comment on above: Order Comment: No: D o not add to previous draw Performed By: #### 5 0103 #### [facility] [address] [facility]. [address] ABS IMM GRANS 0.0 10*3/uL Normal 0.0-0.2 [facility] Comment on above: Order Comment: No: D o not add to previous draw Performed By: #### 5 0103 #### [facility] [address] ABS NEUTROPHILS 2.6 10*3/uL Normal 1.6-7.6 [facility] Comment on above: Order Comment: No: D o not add to previous draw Performed By: #### 5 0103 #### [facility] [address] [facility]. [address] Basophils #/vol (Bld) 0.4 % Normal 0.0-1.0 [facility] Comment on above: Order Comment: No: D o not add to previous draw Performed By: #### 5 0103 #### [facility] [address] [place] [place] [address], [facility] Eosinophils #/vol (Bld) 0.3 10*3/uL Normal 0.0-0.5 [facility] Comment on above: Order Comment: No: D o not add to previous draw Performed By: #### 5 0103 #### [facility] [address] [place] [address], [facility] Eosinophils/100 WBC (Bld) 5.2 % Normal 0.0-6.0 [facility] Comment on above: Order Comment: No: D o not add to previous draw Performed By: #### 5 0103 #### [facility] [address] Erythrocyte distribution width Ratio (RBC) 13.8 % Normal 11.5-15.0 [facility] Comment on above: Order Comment: No: D o not add to previous draw Performed By: #### 5 0103 #### [facility] [address] [facility] [place] [address], [facility] Hematocrit Volume Fraction (Bld) 36.1 % Normal 36.0-45.0 [facility] Comment on above: Order Comment: No: D o not add to previous draw Performed By: #### 5 0103 #### [facility] [address] [facility] [address] Hemoglobin mass conc (Bld) 11.5 g/dL Low 12.0-15.0 [facility] Comment on above: Order Comment: No: D o not add to previous draw Performed By: #### 5 0103 #### [facility] [address] [facility]. [address] IMMATURE GRANS 0.4 % Normal 0.0-1.0 [facility] Comment on above: Order Comment: No: D o not add to previous draw Performed By: #### 5 0103 #### [facility] [address] [facility]. [address] Lymphocytes #/vol (Bld) 1.6 10*3/uL Normal 1.2-4.0 [facility] Comment on above: Order Comment: No: D o not add to previous draw Performed By: #### 5 0103 #### [facility] [address] [facility]. [address] Lymphocytes/100 WBC (Bld) 31.6 % Normal 20.0-45.0 [facility] Comment on above: Order Comment: No: D o not add to previous draw Performed By: #### 5 0103 #### [facility] [address] [place] [address], [facility] MCH Entitic mass (RBC) 25.7 pg Low 27.0-33.0 [facility] Comment on above: Order Comment: No: D o not add to previous draw Performed By: #### 5 0103 #### [facility] [address] MCHC mass conc (RBC) 31.9 g/dL Low 32.0-35.0 [facility] Comment on above: Order Comment: No: D o not add to previous draw Performed By: #### 5 0103 #### [facility] [address] MCV Entitic volume (RBC) 80.6 fL Low 82.0-98.0 [facility] Comment on above: Order Comment: No: D o not add to previous draw Performed By: #### 5 3 #### [facility] [address] Monocytes #/vol (Bld) 0.5 10*3/uL Normal 0.1-1.0 [facility] Comment on above: Order Comment: No: D o not add to previous draw Performed By: #### 5 3 #### [facility] [address] [facility]. [address] MONOS 9.3 % Normal 5.0-12.0 [facility] Comment on above: Order Comment: No: D o not add to previous draw Performed By: #### 5 0103 #### [facility] [address] [facility] [address] Neutrophils/100 WBC (Bld) 53.1 % Normal 40.0-72.0 [facility] Comment on above: Order Comment: No: D o not add to previous draw Performed By: #### 5 3 #### [facility] [address] [facility]. [address] Nucleated RBC/100 WBC Ratio (Bld) 0 % Normal 0-0 [facility] Comment on above: Order Comment: No: D o not add to previous draw Performed By: #### 5 0103 #### [facility] [address] [place] [address], [facility] PLAT CNT 204 10*3/uL Normal 150-400 [facility] Comment on above: Order Comment: No: D o not add to previous draw Performed By: #### 5 0103 #### [facility] [address] [place] [address], [facility] RBC #/vol (Bld) 4.48 10*6/uL Normal 3.80-5.00 [facility] Comment on above: Order Comment: No: D o not add to previous draw Performed By: #### 5 0103 #### [facility] [address] [place] [address], [facility] WBC #/vol (Bld) 4.97 10*3/uL Normal 4.00-10.60 [facility] Comment on above: Order Comment: No: D o not add to previous draw Performed By: #### 5 0103 #### [facility] [address] [place] [address], [facility] HEMOGLOBIN A1Con 03-21-2018 Hemoglobin A1c/Hemoglobin.tota l mass fraction (Bld) 6.8 % High 4.0-6.0 [facility] Comment on above: Order Comment: No: D o not add to previous draw Performed By: #### 5 3 #### [facility] [address] [place] [address], [facility] Hemoglobin A1c/Hemoglobin.tota l mass fraction (Bld) 148 mg/dL High 70-126 [facility] Comment on above: Order Comment: No: D o not add to previous draw Performed By: #### 5 0103 #### [facility] [address] [place] [address], [facility] MAGNESIUM BLOODon 03-21-2018 Magnesium mass conc 1.8 mg/dL Low 1.9-2.7 [facility] Comment on above: Performed By: #### 5 3 #### [facility] [address] [place] [address], [facility] POC GLUCOSE LABon 03-21-2018 Glucose mass conc 186 mg/dL High 70-100 [facility] Comment on above: Performed By: #### 1 0054 #### [facility] [address] [place] [address], [facility] Glucose mass conc 129 mg/dL High 70-100 [facility] Comment on above: Performed By: #### 5 0103 #### [facility] [address] [place] [address], [facility] Glucose mass conc 179 mg/dL High 70-100 [facility] Comment on above: Performed By: #### 5 0103 #### [facility] [address] [place] [address], [facility] Glucose mass conc 159 mg/dL High 70-100 [facility] Comment on above: Performed By: #### 5 0103 #### [facility] [address] [facility] [place] [address], [facility] TROPONIN-Ion 03-21-2018 Troponin I.cardiac mass conc 0.02 ng/mL Normal 0.00-0.04 [facility] Comment on above: Order Comment: No: D o not add to previous draw Result Comment: REFE RENCE RANGES: 0.00 - 0.04 ng/ml NORMAL 0.05 - 0.50 ng/ml INDETERMINATE > 0.50 ng/ml CONSISTENT WITH AN M.I. Performed By: #### 5 0103 #### [facility] [address] [place] [address], [facility] *BLOOD CULTUREon 03-20-2018 Bacteria identified Cx Nom (Bld) Clinical Report: (D) Specimen: BLOOD CULTURE Collected: 03/20/2018 11:20 Status: Final Last Updated: 03/26/2018 06:07 (1) x2 CULT RES (Final) No Growth Day 5 Normal [facility] Comment on above: Order Comment: No: D o not add to previous draw Performed By: #### 5 0103 #### [facility] [address] *RAPID FLU AANDB BY ISABEL Sosa 03-20-2018 *RAPID FLU AANDB BY MOLECULAR Clinical Report: (D) Specimen: NASAL SWAB Collected: 03/20/2018 16:00 Status: Final Last Updated: 03/20/2018 16:52 FLUA RNA (Final) Negative FLUB RNA (Final) Negative Normal [facility] Comment on above: Performed By: #### 3 1018 #### [facility] [address] BNP (B-TYPE NATRIURETIC PEPT ALICE)on 03-20-2018 Natriuretic peptide B mass conc (Bld) 40 pg/mL Normal 0-100 [facility] Comment on above: Order Comment: No: D o not add to previous draw Result Comment: Give n the appropriate clinical setting a BNP result of >100 pg/mL indicates congestive heart failure. Performed By: #### 8 [id number] #### [facility] [address] CBC W/DIFFon 03-20-2018 ABS BASOPHILS 0.0 10*3/uL Normal 0.0-0.2 [facility] Comment on above: Order Comment: No: D o not add to previous draw Performed By: #### 5 0103 #### [facility] [address] ABS IMM GRANS 0.1 10*3/uL Normal 0.0-0.2 [facility] Comment on above: Order Comment: No: D o not add to previous draw Performed By: #### 5 0103 #### [facility] [address] ABS NEUTROPHILS 5.7 10*3/uL Normal 1.6-7.6 [facility] Comment on above: Order Comment: No: D o not add to previous draw Performed By: #### 5 0103 #### [facility] [address] [place] [address], [facility] Basophils #/vol (Bld) 0.3 % Normal 0.0-1.0 [facility] Comment on above: Order Comment: No: D o not add to previous draw Performed By: #### 5 0103 #### [facility] [address] [place] [address], [facility] Eosinophils #/vol (Bld) 0.1 10*3/uL Normal 0.0-0.5 [facility] System Comment on above: Order Comment: No: D o not add to previous draw Performed By: #### 5 0103 #### [facility] [address] [place] [address], [facility] Eosinophils/100 WBC (Bld) 1.4 % Normal 0.0-6.0 [facility] Comment on above: Order Comment: No: D o not add to previous draw Performed By: #### 5 0103 #### [facility] [address] Erythrocyte distribution width Ratio (RBC) 14.0 % Normal 11.5-15.0 [facility] Comment on above: Order Comment: No: D o not add to previous draw Performed By: #### 5 0103 #### [facility] [address] [place] [address], [facility] Hematocrit Volume Fraction (Bld) 36.4 % Normal 36.0-45.0 [facility] Comment on above: Order Comment: No: D o not add to previous draw Performed By: #### 5 0103 #### [facility] [address] [place] [address], [facility] Hemoglobin mass conc (Bld) 11.6 g/dL Low 12.0-15.0 [facility] Comment on above: Order Comment: No: D o not add to previous draw Performed By: #### 5 0103 #### [facility] [address] IMMATURE GRANS 0.7 % Normal 0.0-1.0 [facility] Comment on above: Order Comment: No: D o not add to previous draw Performed By: #### 5 0103 #### [facility] [address] [place] [address], [facility] Lymphocytes #/vol (Bld) 1.1 10*3/uL Low 1.2-4.0 [facility] Comment on above: Order Comment: No: D o not add to previous draw Performed By: #### 5 0103 #### [facility] [address] [place] [address], [facility] Lymphocytes/100 WBC (Bld) 14.5 % Low 20.0-45.0 [facility] Comment on above: Order Comment: No: D o not add to previous draw Performed By: #### 5 0103 #### [facility] [address] [facility] [address] MCH Entitic mass (RBC) 25.7 pg Low 27.0-33.0 [facility] Comment on above: Order Comment: No: D o not add to previous draw Performed By: #### 5 0103 #### [facility] [address] [facility] [address] MCHC mass conc (RBC) 31.9 g/dL Low 32.0-35.0 [facility] Comment on above: Order Comment: No: D o not add to previous draw Performed By: #### 5 0103 #### [facility] [address] [place] [address], [facility] MCV Entitic volume (RBC) 80.5 fL Low 82.0-98.0 [facility] Comment on above: Order Comment: No: D o not add to previous draw Performed By: #### 5 0103 #### [facility] [address] [place] [address], [facility] Monocytes #/vol (Bld) 0.4 10*3/uL Normal 0.1-1.0 [facility] Comment on above: Order Comment: No: D o not add to previous draw Performed By: #### 5 0103 #### [facility] [address] [place] [address], [facility] MONOS 5.0 % Normal 5.0-12.0 [facility] Comment on above: Order Comment: No: D o not add to previous draw Performed By: #### 5 0103 #### [facility] [address] [place] [address], [facility] Neutrophils/100 WBC (Bld) 78.1 % High 40.0-72.0 [facility] Comment on above: Order Comment: No: D o not add to previous draw Performed By: #### 5 0103 #### [facility] [address] [place] [address], [facility] Nucleated RBC/100 WBC Ratio (Bld) 0 % Normal 0-0 [facility] Comment on above: Order Comment: No: D o not add to previous draw Performed By: #### 5 0103 #### [facility] [address] [facility] [place] [address], [facility] PLAT CNT 230 10*3/uL Normal 150-400 [facility] Comment on above: Order Comment: No: D o not add to previous draw Performed By: #### 5 0103 #### [facility] [address] [place] [address], [facility] RBC #/vol (Bld) 4.52 10*6/uL Normal 3.80-5.00 [facility] Comment on above: Order Comment: No: D o not add to previous draw Performed By: #### 5 0103 #### [facility] [address] [place] [address], [facility] WBC #/vol (Bld) 7.25 10*3/uL Normal 4.00-10.60 [facility] Comment on above: Order Comment: No: D o not add to previous draw Performed By: #### 5 0103 #### [facility] [address] [place] [address], [facility] COMP METABOLIC PANELon 03-20 Albumin mass conc 3.4 g/dL Low 3.5-5.7 [facility] Comment on above: Order Comment: No: D o not add to previous draw Performed By: #### 3 6901, [id number], 01386 #### [facility] [address] [place] [address], [facility] ALKALINE PHOSPH 72 IU/L Normal 34-104 [facility] Comment on above: Order Comment: No: D o not add to previous draw Performed By: #### 3 6901, 68900, 02996 #### [facility] [address] [place] [address], [place] ALT enzyme act/vol 13 U/L Normal 7-52 [facility] Comment on above: Order Comment: No: D o not add to previous draw Performed By: #### 3 6901, 31729, 12615 #### [facility] [address] [place] [address], [facility] AST enzyme act/vol 10 U/L Low 13-39 [facility] Comment on above: Order Comment: No: D o not add to previous draw Performed By: #### 3 6901, 15998, 42194 #### [facility] [address] [place] [address], [facility] Bilirubin mass conc 0.2 mg/dL Low 0.3-1.0 [facility] Comment on above: Order Comment: No: D o not add to previous draw Performed By: #### 3 6901, 28188, 53919 #### [facility] [address] [place] [address], [place] Calcium mass conc 8.4 mg/dL Low 8.6-10.3 [facility] Comment on above: Order Comment: No: D o not add to previous draw Performed By: #### 3 6901, 76503, 97679 #### [facility] [address] [place] [address], [place] Chloride molar conc 102 mmol/L Normal 98-107 [facility] Comment on above: Order Comment: No: D o not add to previous draw Performed By: #### 3 6901, 62456, 50155 #### [facility] [address] [place] [address], [place] CO2 molar conc 23 mmol/L Normal 21-31 [facility] Comment on above: Order Comment: No: D o not add to previous draw Performed By: #### 3 6901, 65538, 72152 #### [facility] [address] [place] [address], [place] Creatinine mass conc 0.83 mg/dL Normal 0.60-1.20 [facility] Comment on above: Order Comment: No: D o not add to previous draw Performed By: #### 3 690, 15725, 76438 #### [facility] [address] [place] [address], [place] GFR/1.73 sq M predicted among blacks MDRD vol rate/area (S/P/Bld) mL/min/{1.73_m2} Normal >60 [facility] Comment on above: Order Comment: No: D o not add to previous draw Performed By: #### 3 690, 95296, 49581 #### [facility] [address] [place] [address], [place] GFR/1.73 sq M predicted among non-blacks MDRD vol rate/area (S/P/Bld) mL/min/{1.73_m2} Normal >60 [facility] Comment on above: Order Comment: No: D o not add to previous draw Performed By: #### 3 6901, 08275, 27002 #### [facility] [address] [place] [address], [place] Glucose mass conc 144 mg/dL High 70-100 [facility] Comment on above: Order Comment: No: D o not add to previous draw Performed By: #### 3 6901, 54853, 39004 #### [facility] [address] [place] [address], [place] Potassium molar conc 3.7 mmol/L Normal 3.5-5.1 [facility] Comment on above: Order Comment: No: D o not add to previous draw Performed By: #### 3 690, 67434, 77702 #### [facility] [address] [place] [address], [place] Protein mass conc 6.2 g/dL Normal 6.0-8.3 [facility] Comment on above: Order Comment: No: D o not add to previous draw Performed By: #### 3 690, , 87636 #### [facility] [address] [place] [address], [place] Sodium molar conc 135 mmol/L Low 136-145 [facility] Comment on above: Order Comment: No: D o not add to previous draw Performed By: #### 3 690, 08282, 46119 #### [facility] [address] [place] [address], [place] Urea nitrogen mass conc 17 mg/dL Normal 7-25 [facility] Comment on above: Order Comment: No: D o not add to previous draw Performed By: #### 3 690, 87813, 02499 #### [facility] [address] [place] [address], [place] LACTATE BLOODon 03-20-2018 Lactate molar conc 1.3 mmol/L Normal 0.5-2.2 [facility] Comment on above: Order Comment: No: D o not add to previous draw Performed By: #### 1 0054 #### [facility] [address] [place] [address], [place] LIPASE BLOODon 03-20-2018 Lipase enzyme act/vol 18 Units/L Normal 11-82 [facility] Comment on above: Performed By: #### 3 6901, 80177, 53155 #### [facility] [address] [place] [address], [facility] POC GLUCOSE LABon 03-20-2018 Glucose mass conc 219 mg/dL High 70-100 [facility] Comment on above: Performed By: #### 5 0103 #### [facility] [address] [place] [address], [facility] Glucose mass conc 128 mg/dL High 70-100 [facility] Comment on above: Performed By: #### 8 5499 #### [facility] [address] [facility] [place] [address], [facility] Glucose mass conc 165 mg/dL High 70-100 [facility] Comment on above: Performed By: #### 8 5499 #### [facility] [address] [facility] [address] PROCALCITONINon 03-20-2018 Protein mass conc 0.44 ng/mL High 0.00-0.10 [facility] Comment on above: Order Comment: No: D o not add to previous draw Result Comment: Susp ected Lower Respiratory Tract Infection: 0.1-0.25ng/mL- Low likelihood for bacterial infection;Antibiotics discouraged.* >0.25ng/mL- Increased likelihood bacterial infection;Antibiotics encouraged. Suspected Sepsis: Strongly consider initiating antibiotics in all unstable patients. 0.1-0.5ng/mL- Low likelihood for sepsis; Antibiotics discouraged.* >0.5ng/mL- Increased likelihood sepsis; Antibiotics encouraged. >2.0ng/mL- High risk of sepsis/septic shock; Antibiotics strongly encouraged. *Recommend retesting PCT within 6-12hours if clinically indicated and initial PCT<0.5ng/mL Performed By: #### 3 1488 #### [facility] [address] TROPONIN-Ion 03-20-2018 Troponin I.cardiac mass conc 0.02 ng/mL Normal 0.00-0.04 [facility] Comment on above: Order Comment: No: D o not add to previous draw Result Comment: REFE RENCE RANGES: 0.00 - 0.04 ng/ml NORMAL 0.05 - 0.50 ng/ml INDETERMINATE > 0.50 ng/ml CONSISTENT WITH AN M.I. Performed By: #### 5 0103 #### [facility] [address] Troponin I.cardiac mass conc 0.03 ng/mL Normal 0.00-0.04 [facility] Comment on above: Order Comment: No: D o not add to previous draw Result Comment: REFE RENCE RANGES: 0.00 - 0.04 ng/ml NORMAL 0.05 - 0.50 ng/ml INDETERMINATE > 0.50 ng/ml CONSISTENT WITH AN M.I. Performed By: #### 3 6901, 54061, 88170 #### [facility] [address] Vital Signs Date Time Vital Sign Value Performing Clinician Gurpreet stubbs 04-28-2018 23:33-0500 Respiratory rate 14 /min DEFAULT PHYSICIAN [facility] Comment on above: Performed By: #### 5 0103 #### [facility] [address] [facility]. [address] 04-28-2018 22:19-0500 Respiratory rate 14 /min DEFAULT PHYSICIAN [facility] Comment on above: Order Comment: No: D o not add to previous draw Performed By: #### 5 0103 #### [facility] [address] 04-28-2018 20:34-0500 Respiratory rate 12 /min DEFAULT PHYSICIAN [facility] Comment on above: Performed By: #### 3 1018 #### [facility] [address] [place] [address], [facility] Encounters Encounter Date Encounter Type Care Provider Facility Start: 05-05-2024 ambulatory Dandre Burger Facility :[facility] [place] Start: 07-05-2023 ambulatory Dandre Burger Facility :[facility] [place] Start: 05-19-2023 End: 05-19-2023 ambulatory SEAN ROCCO Not Available Start: 05-05-2023 End: 05-06-2023 ambulatory Ivett L Gabriel Facility:[facility] Start: 05-05-2023 End: 05-05-2023 Lab Drop off Ivett L Gabriel [facility] Start: 04-21-2023 End: 04-21-2023 ambulatory SEAN ROCCO Not Available Start: 04-21-2023 End: 04-21-2023 Patient encounter procedure [facility] - Lalita Hyde [facility] Comment on above: Sensorineural hearin g loss (SNHL) of both ears (Primary Dx) Start: 04-05-2023 End: 04-06-2023 ambulatory Dandre Burger Facility:[facility] Start: 04-05-2023 End: 04-05-2023 Lab Drop off Dandre Burger [facility] Start: 03-31-2023 End: 03-31-2023 ambulatory SEAN ROCCO Not Available Start: 02-10-2023 End: 02-10-2023 ambulatory SEAN A ROCCO Not Available Start: 02-10-2023 End: 02-10-2023 ambulatory SEAN A ROCCO Not Available Start: 12-30-2022 ambulatory Job MOORE Facility:[facility] [place] Start: 12-28-2022 End: 12-29-2022 ambulatory Dandre Burger Facility:[facility] [place] Start: 12-14-2022 End: 12-15-2022 ambulatory Dandre Burger Facility:[facility] Start: 12-14-2022 End: 12-14-2022 Lab Drop off Dandre TasneemMariia Tao [facility] Start: 09-29-2022 End: 09-29-2022 ambulatory [facility] Start: 08-26-2022 End: 08-27-2022 ambulatory Job MOORE Facility:CD:[id number] Start: 07-31-2022 End: 08-01-2022 ambulatory GIANFRANCO LAU Facility:[facility] Start: 07-28-2022 End: 07-28-[address] LUIS FRIEDMAN Facility:[facility] Start: 07-20-2022 End: 07-21-[address] GIANFRANCO LAU Facility:[facility] Start: 07-07-2022 ambulatory GIANFRANCO LAU Facilit y:[facility] Start: 04-20-2022 End: 04-21-[address] GIANFRANCO LAU Facility:[facility] Start: 10-10-2021 End: 10-11-[address] GIANFRANCO LAU Facility:[facility] Start: 08-18-2021 End: 08-19-2021 ambulatory RAJINDER MOHAMUD Facility:[facility] Start: 04-25-2018 End: 05-03-2018 Evaluation and management of inpatient WANG R OANH Facility:[facility] Start: 03-20-2018 End: 03-22-2018 Evaluation and management of inpatient James Ud Din Facility:[facility] Start: 01-19-2018 End: 01-20-2018 Patient encounter procedure DEFAULT PHYSICIAN Facility:[facility] Procedures Date Procedure Procedure Detail Performing Clinician Start: 05-01-2018 Antibody screen DEFAULT PHYSICIAN Comment on above: Performed By: #### 5 0103 #### [place] [address] Start: 04-28-2018 BYPASS 1 COR ART FRO M THOR ART, OPEN APPROACH KAREN AZIE Start: 04-28-2018 BYPASS 3 COR ART FRO M AORTA WITH AUTOL VN, OPEN APPROACH KAREN AZIE Start: 04-28-2018 EXCISION OF LEFT SAP HENOUS VEIN, PERC ENDO APPROACH KAREN AZIE Start: 04-28-2018 INSERTION OF MONITOR DEV INTO PULM TRUNK, PERC APPROACH PHILIPPE Lafleur RUTH Start: 04-28-2018 Performance of Cardi ac Output, Continuous KAREN AZIE Start: 04-28-2018 TRANSFUSE NONAUT RED BLOOD CELLS IN PERIPH VEIN, PERC PHILIPPE MIRANDA Start: 04-28-2018 ULTRASONOGRAPHY OF H EART WITH AORTA, TRANSESOPHAGEAL PHILIPPE MIRANDA Start: 04-27-2018 Antibody screen DEFAULT PHYSICIAN Comment on above: Performed By: #### 3 6901, 00616, 98487 #### [facility] [address] [facility] [place] [address], [facility] Start: 04-27-2018 MONITORING OF ARTERI AL SATURATION, PERIPHERAL, PERC APPROACH FELIPE HUGO Start: 04-26-2018 FLUOROSCOPY OF MULTI PLE CORONARY ARTERIES USING OTH CONTRAST MARTINE MCINTOSH Start: 05-04-2016 Colonoscopy Dandre smith section Dandre Burger Cholecystectomy Dandre Burger Coronary artery bypa ss grafts x 4 Dandre Burger Decompression of med carlito nerve Dandre Burger Excision of lipoma of back S onofre Burger History of coronary artery bypass grafting S/P CABG x 3 Dandre Burger Total hysterectomy v ia vaginal approach Dandre Burger Plan of Treatment Date Care Activity Detail Author Start: 05-05-2023 End: 05-05-2023 Patient encounter procedure 05/05/2023 8:30 AM EST Office Visit [facility] [address] [place] [address] [facility] Immunizations Immunization Date Immunization Notes Care Provider Chay frederick 12-28-2022 influenza, injectabl e, quadrivalent, preservative free Dandre Burger [facility] 10-21-2021 zoster vaccine recombinant [facility] 05-29-2021 zoster vaccine recombinant Dandre Burger [facility] NEGATED: Highlighted row has not occurred!12-14-2022 influenza virus vaccine, unspecified formulation Dandre Burger [facility] Payers Date Payer Category Payer Medicare [facility] [employer] [facility] [employer] [id number] 2022-Present [address] [place] [address] [id number] 2022 Medicare [id number] 2021 Medicaid MEDICAID [facility] [id number] 2021-Present [phone] [address] [place] [address] Medicaid [id number] 1959 Medicaid [id number] 1959 Unknown [id number] 1958 Unknown [id number] 2.16.840.1.037142.3.579.2.647 1958 Unknown [id number] 2.16.840.1.451475.3.579.2.647 1958 Unknown [id number] 2.16.840.1.932347.3.579.2.647 1958 Unknown [id number] 2.16.840.1.559829.3.579.2.593 1958 Unknown [id number] 2.16.840.1.467940.3.579.2.593 1958 Unknown [id number] 2.16.840.1.005739.3.579.2.593 1958 Unknown [id number] 2.16.840.1.250925.3.579.2.593 1958 Unknown [id number] 2.16.840.1.387824.3.579.2.593 1958 Unknown [id number] 2.16.840.1.811279.3.579.2.72 1958 Unknown [id number] 2.16.840.1.319545.3.579.2.72 1958 Unknown [id number] 2.16.840.1.279883.3.579.2.72 1958 Unknown [id number] 2..840.1.462666.3.579.2.72 1958 Unknown [id number] 2.16.840.1.509667.3.579.2.72 1958 Unknown [id number] 2.16.840.1.333113.3.579.272 1958 Unknown [id number] 2.16.840.1.432760.3.579.2.72 1958 Unknown [id number] 2.16.840.1.610026.3.579.2.72 1958 Unknown [id number] 2.16.840.1.226673.3.579.2.72 1958 Unknown [id number] 2.16.840.1.026571.3.579.2.72 1958 Unknown [id number] 2.16.840.1.453825.3.579.2.72 1958 Unknown [id number] 2.16.840.1.808387.3.579.2.72 1958 Unknown [id number] 2.16.840.1.060882.3.579.2.1259 1958 Unknown [id number] 2.16.840.1.693784.3.579.2.1259 1958 Unknown [id number] 2.16.840.1.574310.3.579.2.1259 1958 Unknown [id number] 2.16.840.1.732833.3.579.2.1259 1958 Unknown [id number] 2.16.840.1.172654.3.579.2.9 Unknown [id number] Unknown Social History Date Type Detail Facility Start: 12-14-2022 End: 04-05-2023 Tobacco smoking status Heavy tobacco smoker (finding) [facility] Tobacco smoking status Never [facility] Comment on above: Patient quit 03/2023 Sex Assigned At Female [facility] Tobacco smoking status NHIS Tobacco smoking consumption unknown [facility] Start: 1960 Sex Assigned At Not on file [facility] Start: 05-05-2023 Tobacco smoking status Ex-smoker (finding) [facility] Comment on above: Patient quit 03/2023 History of Present illness Narrative 04-21-2023 Lalita Hyde MA - 04/21/2023 9:30 AM EST Note Date & Type Note Facility 04-21-2023 History of Presen t illness Narrative Patient was in today for a follow up on new hearing aids. Patient arrived not wearing the aids. She states that the left aid is not comfortable and she is not hearing well. Patient has decided she would like to return the heairng aids and get MO hearing aids which she has had in the past. Patient would like to proceed with [employer] [place] R hearing aids in color P7. Patient was scheduled in two weeks to be fit with the MO hearing aids. documented in this encounter [facility] Healthcare Progress note 09-29-2022 Note Date & Type Note Facility 09-29-2022 Note [facility] Subjective Pato Corral is a 62 y.o. year old female patient being seen for Follow-up (1 YEAR FOLLOW UP ) Patient Active Problem List Diagnosis History of renal calculi History of coronary artery bypass surgery Essential hypertension Diabetes mellitus (CMS/HCC) Coronary atherosclerosis Abnormal finding on MRI of brain BMI 36.0-36.9,adult Chronic obstructive pulmonary disease (CMS/HCC) Depression CKD (chronic kidney disease) Facial bones, closed fracture (CMS/HCC) Family history of colon cancer Hearing loss Hyperlipidemia Neuropathic pain KELLY (obstructive sleep apnea) Polyneuropathy Retinopathy Screening for malignant neoplasm of colon Smoker No family history on file. Social History Tobacco Use Smoking status: Former Types: Cigarettes Smokeless tobacco: Never AMI Anaya is seen in follow up. She is a 62-year-old woman, who was admitted with symptoms of unstable angina in 04/2018. A stress test showed apical maría elena-infarct ischemia. She was referred for cardiac catheterization that showed severe 3 vessel disease. She underwent bypass surgery on 04/28/2018. Her ventricular and valvular functions were normal. I stopped Plavix 3 month post surgery. I increased carvedilol to 25 mg bid and cut back amlodipine to 5 mg daily. In July 2022 she presented to the emergency room at the [facility] with chest pain. Work-up was negative for cardiac etiology. She has been doing well. No angina. No dizziness. No leg swelling. Review of Systems Constitutional: Positive for malaise/fatigue. Eyes: Positive for blurred vision and double vision. Musculoskeletal: Positive for arthritis, joint pain, joint swelling, muscle cramps and muscle weakness. Neurological: Positive for excessive daytime sleepiness, focal weakness, headaches and weakness. All other systems reviewed and are negative. Objective Visit Vitals BP 108/67 (BP Location: Left arm, Patient Position: Sitting, BP Cuff Size: Large adult) Pulse 83 Ht 1.575 m (5' 2 ) Wt 88.3 kg (194 lb 9.6 oz) SpO2 97% BMI 35.59 kg/m??? Smoking Status Former BSA 1.97 m??? Physical Exam Constitutional: Appearance: She is well-developed. She is obese. She is not ill-appearing. HENT: Head: Normocephalic and atraumatic. Nose: Nose normal. Eyes: General: No scleral icterus. Pupils: Pupils are equal, round, and reactive to light. Neck: Thyroid: No thyromegaly. Vascular: No JVD. Cardiovascular: Rate and Rhythm: Normal rate and regular rhythm. Pulses: Radial pulses are 2+ on the right side and 2+ on the left side. Heart sounds: Normal heart sounds. No murmur heard. No friction rub. No gallop. Pulmonary: Effort: Pulmonary effort is normal. No respiratory distress. Breath sounds: Normal breath sounds. No wheezing or rales. Chest: Chest wall: No tenderness. Abdominal: General: Bowel sounds are normal. There is no distension. Palpations: Abdomen is soft. Tenderness: There is no abdominal tenderness. Musculoskeletal: General: No swelling. Cervical back: Neck supple. Skin: General: Skin is warm and dry. Neurological: General: No focal deficit present. Mental Status: She is alert and oriented to person, place, and time. Psychiatric: Mood and Affect: Mood normal. Behavior: Behavior is cooperative. Judgment: Judgment normal. Allergies No Known Allergies Medications Current Outpatient Medications: amLODIPine (Norvasc) 5 mg tablet, Take 5 mg by mouth., Disp: , Rfl: aspirin 81 mg EC tablet, Take 81 mg by mouth., Disp: , Rfl: atorvastatin (Lipitor) 80 mg tablet, Take 80 mg by mouth in the morning., Disp: , Rfl: buPROPion SR (Wellbutrin SR) 150 mg 12 hr tablet, Take 150 mg by mouth in the morning., Disp: , Rfl: carvedilol (Coreg) 25 mg tablet, take 1 and 1/2 tablets by mouth twice a day, Disp: 270 tablet, Rfl: 2 DULoxetine (Cymbalta) [address] capsule, Take 60 mg by mouth in the morning., Disp: , Rfl: gabapentin (Neurontin) 400 mg capsule, Take 400 mg by mouth in the morning, at noon, and at bedtime., Disp: , Rfl: glimepiride (Amaryl) 4 mg tablet, Take 4 mg by mouth in the morning and at bedtime., Disp: , Rfl: isosorbide mononitrate ER (Imdur) 30 mg 24 hr tablet, take 1 tablet by mouth once daily, Disp: 90 tablet, Rfl: 0 Janumet 50-1,000 mg tablet, Take 1 tablet by mouth in the morning and at bedtime., Disp: , Rfl: Lantus Solostar U-100 Insulin 100 unit/mL (3 mL) pen, Inject 100 mL under the skin in the morning and at bedtime., Disp: , Rfl: Recent Labs blood testing 07/28/2022: Hemoglobin 12.1, Platelets 273, potassium 4.7, BUN 15, creatinine 1.15, LFTs normal, at bedtime troponin normal 10.9, D-dimer 0.37 normal. Blood testing 07/25/2021: Chol 115, HDL 42, TG 237, LDL 26. Blood testing 07/28/2019: Hemoglobin 12.3, BUN 12, creatinine 1.05, potassium 4.0 Imaging and other tests ECG 07/28/2032: Normal sinus rhyt (more content not included)... [facility] Clinical Note 07-31-2022 Note Date & Type Note Facility 07-31-2022 Note Chief Complaint consultation for screening colonoscopy HPI Staff 62 year old female presents on consultation from Dr. Lau for screening colonoscopy. Denies abdominal or rectal pain. No rectal bleeding or change in bowel habits. Has chronic constipation. Denies nausea or vomiting. Denies unexplained weight loss. Last colonoscopy completed 04/2016, normal. Brother with history of colon cancer, diagnosed age 62. History of Present Illness 62 yo female with h/o CAD, s/p CABG x 4 three years ago; DMII, htn, hyperlipidemia, KELLY, COPD, CKD, referred for colorectal screening; denies change in bms, has had chronic constipation; no blood in stools; no abdominal complaints; on baby asa daily, no NSAID use, no SBE prophylaxis; abdominal operations significant for x 3, cholecystectomy and vaginal hysterectomy, last colonoscopy 2016, with diverticulosis; fmhx of colon cancer in patient's brother, dx at age 60; no fmhx of IBD; former smoker, quit recently. Review of Systems PHQ Score Initial Depression Screen Score: 0 ROS - Provider Constitutional: no fever, no sweats, no weight loss. Eyes: no glasses, no blurred vision, no visual loss. ENMT: no dentures, no hoarseness, no swallowing difficulties, no hearing loss, no ear infection(s), no nose bleeds. Cardiovascular: normal blood pressure, no chest pain, regular heartbeat, no heart murmur. Respiratory: no shortness of breath, no cough, no asthma, no wheezing. Gastrointestinal: no nausea, no vomiting, no diarrhea, no constipation, no blood in stool, no change in bowel habits, no abdominal pain, no hepatitis. Genitourinary: no kidney stones, no urine infection, no dysuria. Musculoskeletal: no pain, no weakness. Skin: no changing moles, no rash, no skin lumps. Neurologic: no seizures, no epilepsy, no headache. Psychiatric: no emotional or psychiatric problem. Heme/Lymph: no bleeding problems, no anemia, no blood clots, no transfusions. Allergy/Immunologic: no swollen lymph nodes/glands, no IV drug abuse. Other: Additional ROS info: Except as noted in the above Review of Systems and in the History of Present Illness, all other systems have been reviewed and are negative or noncontributory. Physical Exam Vitals & Measurements HR: 80(Peripheral) RR: 16 BP: 128/84 HT: 62 in HT: 157.48 cm WT: 89.5 kg WT: 196.9 lb BMI: 36.09 HEENT: normal conjunctiva, sclera clear, no scleral icterus, EOM intact, PERRLA, oral mucosa moist without lesions. Neck: trachea midline, no mass, symmetric, no thyromegaly or nodules, no adenopathy Respiratory: lungs CTA, respirations non labored. Cardiovascular: regular rate and rhythm, no murmur, no pedal edema or varicosities. Gastrointestinal: obese, soft, non distended, no tenderness, no masses, no palpable hernias, diastasis recti no, no hepatosplenomegaly; normal bs Lymphatic: no cervical adenopathy, no supraclavicular adenopathy Musculoskeletal: normal gait, digits and nails without infection, nodes, cyanosis, clubbing. Skin: no rashes, no lesions, no ulcers, no subcutaneous nodules, induration. Psychiatric/Neuro: oriented to time, place, person, judgement normal, affect appropriate for age, insight intact, no focal deficits. Tests: labs reviewed, x-rays reviewed, review of old records completed, Discussed surgical options, risks, and possible complications with patient. Assessment/Plan 1. Screening for malignant neoplasm of colon (Z12.11: Encounter for screening for malignant neoplasm of colon) plan colonoscopy under anesthesia, informed consent obtained. 2. Family history of colon cancer (Z80.0: Family history of malignant neoplasm of digestive organs) see # 1 Follow-up No qualifying data available Problem List/Past Medical History Ongoing BMI 36.0-36.9,adult Chronic obstructive pulmonary disease CKD (chronic kidney disease) Depression Diabetes Essential hypertension Family history of colon cancer Hearing loss Hyperlipidemia KELLY (obstructive sleep apnea) Polyneuropathy Retinopathy Screening for malignant neoplasm of colon Smoker Historical No qualifying data Procedure/Surgical History Colonoscopy (05/04/2016), CABG x 4 - Coronary artery bypass grafts x 4, Carpal tunnel release, section, section, section, Cholecystectomy, Excision of lipoma of back, Vaginal total hysterectomy. Medications Amaryl 4 mg Tab, 4 mg= 1 tab(s), Oral, BID amLODIPine 5 mg Tab, 5 mg= 1 tab(s), Oral, Daily Aricept 5 mg Tab, 5 mg= 1 tab(s), Oral, BID aspirin 81 mg Oral EC Tab, 81 mg= 1 tab(s), Oral, Daily atorvastatin 80 mg Tab, 80 mg= 1 tab(s), Oral, Daily carvedilol 25 mg Tab, 25 mg= 1 tab(s), Oral, BID ClonazePAM 0.5 mg Tab, 0.5 mg= 1 tab(s), Oral, Once a day (at bedtime) Colace 100 mg Cap, 100 mg= 1 cap(s), Oral, Daily, PRN duloxetine 60 mg Cap-DR, 1 cap(s), Oral, Daily gabapentin 400 mg Cap, 400 mg= 1 cap(s), Oral, TID Janumet 50 mg/1000 mg oral tablet, 1 tab(s), Oral, BID Lantus (more content not included)... [facility] Comment on above: Result Comment: Elec tronically Signed By: OSCAR GTZ, Job Tripathi\Date and Time Signed: 07/31/22 14:54 EDT Evaluation + Plan note Note Date & Type Note Facility Evaluation + Plan note Future Appointments Appointment Date:12/28/2022 07:40:00 AM Scheduled Provider:Dandre Burger MD Location:[facility] Appointment Type:[facility] Evaluation + Plan note Radiology Note Date & Type Note Facility Evaluation + Plan note Future Appointments Appointment Date:04/12/2023 10:00:00 AM Scheduled [facility]: [facility] Type:CT Chest, Low Dose Screening (FT) Appointment Date:05/05/2023 11:00:00 AM Scheduled Provider: Location:[facility] Appointment Type: Medicare Wellness Subsequent Appointment Date:07/05/2023 09:15:00 AM Scheduled Provider:Dandre Burger MD [facility] Appoint[facility] Type: Open Future Scheduled TestsCT Chest, Low Dose Screening 04/12/23 [facility] Evaluation + Plan note Note Date & Type Note Facility Evaluation + Plan note Future Appointments Appointment Date:07/05/2023 09:15:00 AM Scheduled Provider:Dandre Burger MD [facility] App[facility] Type: Open Appointment Date:05/05/2024 11:00:00 AM Scheduled Provider: Location:[facility] Appointment Type: Medicare Wellness Subsequent Diagnostic Tests PendingHCV Antibody RFX to Quant PCR 05/05/23 [facility] Evaluation note Note Date & Type Note Facility Evaluation note Diagnosis Sensorineural hearing loss (SNHL) of both ears- Primary documented in this encounter [facility] Hospital course Narrative Note Date & Type Note Facility Hospital course Narrative No data available for this section [facility] Hospital Discharge instructions Note Date & Type Note Facility Hospital Discharge instructions No data available for this section [facility] Progress note Note Date & Type Note Facility Progress note No data available for this section [facility] Summary Purpose Family History No Family History Records FoundNo Family History Records FoundNo Family History Records Found No data available for this section No data available for this section No data available for this section No Family History Records FoundNo Family History Records Found Advance Directives No Advanced Directives Records FoundNo Advanced Directives Records FoundNo Advanced Directives Records FoundNo Advanced Directives Records FoundNo Advanced Directives Records Found Hospital Course Note MR#: [id number] [facility] Pt. Name: Pato Corral Admitted: 03/20/2018 Discharged: 03/22/2018 Date of : 1960 Physician: Cate Ramirez MD DISCHARGE SUMMARY FINAL DIAGNOSIS: Sepsis secondary to colitis. HOSPITAL COURSE: The patient was admitted with sepsis. CT scan of her abdomen was performed which showed colitis. She was placed on IV antibiotics with Zosyn. The patient's abdominal symptoms improved. GI evaluated the patient and due to the severe abdominal pain and the patient's resistance colonoscopy, it was decided by GI to have a followup colonoscopy as an outpatient. Due to her symptoms improving with IV antibiotics, the patient was discharged home with p.o. antibiotics for 7 days. The patient's secondary diagnoses include diabetes, coronary artery disease. DISCHARGE MEDICATIONS: Amlodipine 10 mg p.o. daily, aspirin 81 mg p.o. daily, vitamin B12 as directed, lisinopril 20 mg daily, meloxicam 15 mg daily, oxcarbazepine 600 mg 2 times (more content not included)... Note MR#: [id number] [facility] Pt. Name: Pato Corral Admitted: 04/25/2018 Discharged: 05/03/2018 Date of : 1960 Physician: Karen Ruvalcaba MD DISCHARGE SUMMARY PRINCIPAL DIAGNOSES: 1. Multivessel coronary artery disease. 2. Unstable angina. SECONDARY DIAGNOSES: 1. Diabetes mellitus. 2. Hypertension. 3. Tobacco abuse. PROCEDURES PERFORMED: Right coronary artery bypass grafting x4 with grafting of left internal thoracic artery to left anterior descending coronary artery, saphenous vein graft to 1st marginal branch of circumflex coronary artery, saphenous vein graft to posterior descending coronary artery, saphenous vein graft to distal right coronary artery performed on April 28, 2018. HOSPITAL COURSE: This is a 57-year-old lady, who had been having intermittent chest pain on exertion. She had a stress test which was abnormal. She subsequently had a cardiac catheterization performed which showed multivessel coronary artery disease. She had 2D (more content not included)... Additional Source Comments INFORMATION SOURCE (unrecogn ized section and content) DATE CREATED AUTHOR 05/17/2018 [facility] DATE CREATED AUTHOR AUTHOR'S ORGANIZ ATION 07/29/2022 [facility] DATE CREATED AUTHOR AUTHOR'S ORGANIZ ATION 09/30/2022 [facility] DATE CREATED AUTHOR AUTHOR'S ORGANIZ ATION 05/12/2023 [facility] DATE CREATED AUTHOR AUTHOR'S ORGANIZ ATION 05/20/2023 [facility] Patient Care team informatio n (unrecognized section and content) [facility] Relationship Specialty Start Date End Date Gianfranco Lau MD [address] [id number] PCP - General Family Medicine 09/08/22 Reason for Visit (unrecogniz ed section and content) Reason Comments Hearing Aid Check FOR RECORDS PERTAINING TO PATIENTS WHO ARE OR HAVE BEEN ENROLLED IN A CHEMICAL DEPENDENCY/SUBSTANCEABUSE PROGRAM, SOME INFORMATION MAY BE OMITTED. This clinical summary was aggregated from multiple sources. Caution should be exercised in using it in the provision of clinical care. This summary normalizes information from multiple sources, and as a consequence, information in this document may materially change the coding, format and clinical context of patient data. In addition, data may be omitted in some cases. CLINICAL DECISIONS SHOULD BE BASED ON THE PRIMARY CLINICAL RECORDS. [facility]. provides no warranty or guarantee of the accuracy or completeness of information in this document.
--- NOTE | 2023-06-02 07:47 | XR_ITS ---
The [address] [address] Patient Name: PATO HAN MRN: [id number] date: 1960 Sex: F Assigned Patient Location: [facility] Current Patient Location: [facility] Accession/Order Number: [id number] Exam Date: 06/02/2023 07:58 Report Date: 06/02/2023 11:03 At the request of: SUSANNAH CLEMENT Procedure: XR DEXA axial skeleton EXAMINATION: XR DEXA axial skeleton, 06/02/2023 7:58 AM EDT HISTORY: Primary Ovarian Failure Z00.01 COMPARISON: 2016. TECHNIQUE: Dual-energy X-ray absorptiometry (DEXA) bone density study performed for the axial skeleton. HISTORY: Primary Ovarian Failure Z00.01 FINDINGS: Bone mineral density AP spine L2-L4 is 1.221 g/sq cm. T score 0.2. WHO classification: Normal. This is artifactually elevated secondary to degenerative spondylosis The lowest bone mineral densities the left femoral neck measuring 0.667 g/sq cm. T score -2.7. WHO classification: Osteoporosis XR/XR DEXA axial skeleton IMPRESSION: Osteoporosis. High fracture risk Electronically authenticated by: ART MCNEILL Date: 06/02/2023 11:03
== END 2023-06-02 07:42 | disposition home or self-care (01) ==
LOC: RAD 07:41
PROVIDERS: PCP Family Medicine; Visit Provider Family Medicine
DX: Z00.01 Encounter for general adult medical examination with abnormal findings (principal); E28.39 Other primary ovarian failure; M81.0 Age-related osteoporosis without current pathological fracture
CPT/HCPCS: 77080

== ENCOUNTER 2023-06-17 09:38 | Outpatient (OUT) | payer MEDICARE, MEDICAID, SELFPAY ==
--- NOTE | 2023-06-17 09:41 | CT_ITS ---
[address] [address] Patient Name: PATO HAN MRN: [id number] date: 1960 Sex: F Assigned Patient Location: CT Current Patient Location: CT Accession/Order Number: [id number] Exam Date: 06/17/2023 09:50 Report Date: 06/17/2023 13:07 At the request of: SUSANNAH CLEMENT Procedure: CT lung screening low-dose EXAMINATION: CT lung screening low-dose HISTORY: nicotine dependence F17.210 COMPARISON: CT chest 10/01/2022, 07/28/2022, 04/06/2018 TECHNIQUE: Axial, Coronal, and Sagittal images were created without the administration of IV contrast material. Dose reduction techniques were achieved by using automated exposure control and/or adjustment of mA and/or kV according to patient size and/or use of iterative reconstruction technique. FINDINGS: LUNGS: 3 mm thick pleural plaque 10 mm in diameter adjacent the right major fissure at its superior extent. Lungs otherwise clear. No significant interstitial changes or bronchiectasis. PLEURA: No mass, effusion, or pneumothorax. VASCULATURE: No abnormality. MICHAEL: No mass or pathologic adenopathy. MEDIASTINUM: No mass or pathologic adenopathy. CARDIAC: Atherosclerotic coronary artery disease. No pericardial effusion. AORTA: No aneurysm or dissection. CHEST WALL: No mass or axillary adenopathy BONES: No bone lesion or fracture. LIMITED ABDOMEN: Stable, chronic 9 mm rim calcified splenic artery aneurysm. Limited images of the upper abdomen. OTHER: Negative. CT/CT lung screening low-dose IMPRESSION: 1. Lung-RADS 2- Benign Appearance or Behavior. Nodules with a very low likelihood of becoming a clinically active cancer due to size or lack of growth. Follow-up CT Chest in 1 year. 2. Nonspecific 10 mm diameter pleural plaque at the superior margin of the right major fissure which is unchanged over the past 11 months and is not overtly suspicious; I suspect scarring. Electronically authenticated by: ISI OWENS Date: 06/17/2023 13:07
--- OUTSIDE RECORDS SUMMARY | 2023-06-17 09:47 | XMS_ITS | CCD ---
Author Organization [facility] Care Team Providers Care Tumbling And Rolling Supervisor Name Role Phone PHYSICIAN, DEFAULT Admitting Unavailable PHYSICIAN, DEFAULT Attending Unavailable James Live Admitting Unavailable ANDREI TSE Referring Unavailable HOUSE, GIANFRANCO Primary Care Unavailable CATE RAMIREZ Attending Unavailable FELIPE HUGO Admitting Unavailable HOUSE, GIANFRANCO Referring Unavailable HOUSE, GIANFRANCO Primary Care Unavailable Bernardo, Karen Attending Unavailable ME Procedure Practitioner Unavailab le Bernardo, Karen Surgeon Unavailable ME Procedure Practitioner Unavailab le UNKNOWN, PROVIDER Surgeon Unavailable ME Procedure Practitioner Unavailab le OANH, WANG R Surgeon Unavailable ME Procedure Practitioner Unavailab PHILIPPE Infante Surgeon Unavailable RAJINDER MOHAMUD Admitting Unavailable MUSCOTAH, DR ART June Consulting Unavailable NUNEZ, DR BECERRA Primary Care Unavailable RAJINDER MOHAMUD Attending Unavailable RAJINDER MOHAMUD Consulting Unavailable IDALIA, DR LUIS Santa Admitting Unavailabl e NUNEZ, DR BECERRA Primary Care Unavailable IDALIA, DR LUIS Santa Attending Unavailabl e IDALIA, DR LUIS Santa Consulting Unavailabl e Nefcy, Paolo Consulting Unavailable UNLU, SAVITA Consulting Unavailable NUNEZ, DR BECERRA Attending Unavailable NUNEZ, DR BECERRA Admitting Unavailable NUNEZ, DR BECERRA Consulting Unavailable NUNEZ, DR BECERRA Primary Care Unavailable ROMAN, DR ISI Barajas Consulting Unavailable NUNEZ, DR BECERRA Admitting Unavailable NUNEZ, DR BECERRA Attending Unavailable NUNEZ, DR BECERRA Consulting Unavailable NUNEZ, DR BECERRA Primary Care Unavailable NUNEZ, DR BECERRA Admitting Unavailable NUNEZ, DR BECERRA Attending Unavailable NUNEZ, DR BECERRA Consulting Unavailable NUNEZ, DR BECERRA Primary Care Unavailable MARTINE MCINTOSH Attending Unavailable Dandre Burger Primary Care Physician Gianfranco Lau MD Primary Care Provider SEAN VALIENTE Attending Unavailable SEAN VALIENTE Attending Unavailable Job MOORE Referring Unavailable Job MOORE Attending Unavailable MD Dandre Burger Attending MD Dandre Meadows Attending Unavailable MD Dandre Burger Attending Unavailable MD Dandre Burger Attending Unavailable MD Dandre Burger Attending Unavailable MD Dandre Burger Attending Unavailable MD Dandre Burger Admitting Unavailable MD Dandre Burger Attending Unavailable MD Dandre Burger Admitting Unavailable MD Dandre Burger Attending Unavailable Gabriel, CORE LAYING MACHINE OPERATOR Ivett L Admitting Unavailable Gabriel CORE LAYING MACHINE OPERATORDilcia Root L Attending Unavailable GIANFRANCO LAU Referring Unavailable Job MOORE Attending Unavailable GIANFRANCO LAU Referring Unavailable Job MOORE Attending Unavailable Allergies Allergy Classification Reported Allergen(s) Allergy Type Date of Onset Reaction(s) Facility (1 source) No Known Medication Allergies; Translations: [No Known Medication Allergies] Propensity to adverse reactions (disorder) [facility] Repository Medications Current Medications Medication Drug [...] (3 sources) alpha-Adrenergic Connor, beta-Adrenergic Connor Start: 05-19-2023 carvedilol 25 mg Tab 37.5 mg = 1.5 tab(s), Oral, BID, Refills(s) 0 Start Date: 07/31/22 Status: Ordered Start: 07-31-2022 take 1 tablet by alejandro th twice daily carvedilol 25 mg Tab 25 [...] qWeek, # 12 EA, Refills(s) 0, Pharmacy: [facility] #[id number], 157.5, cm, 04/05/23 7:03:00 EST, Height/Length Dosing, 88.1, kg, 04/05/23 7:03:00 EST, Weight Dosing Start Date: 04/21/23 Status: Ordered Start: 03-22-2023 inject 0.75 mg by lizarraga bcutaneous injection every week Trulicity Pen 0.75 mg/0.5 mL subcutaneous solution See Instructions, inject 0.75 milligrams subcutaneously every week, # 2 mL, Refills(s) 0, Pharmacy: [facility] #[id number], 157.5, cm, 12/14/22 6:58:00 EDT, Height/Length Dosing, 88.4, kg, 12/14/22 6:58:00 EDT, Weight Dosing Start Date: 03/22/23 Status: Ordered Start: 12-14-2022 inject 0.75 mg by lizarraga bcutaneous injection every week Trulicity Pen 0.75 mg/0.5 mL subcutaneous solution 0.75 mg, SubCutaneous, qWeek, # 4 EA, Refills(s) 0, Pharmacy: [facility] #[id number], 157.5, cm, 12/14/22 6:58:00 EDT, Height/Length Dosing, [...] TID, # 270 cap(s), Refills(s) 0, Pharmacy: [facility] #[id number], 157.5, cm, 12/14/22 6:58:00 EDT, Height/Length Dosing, 88.4, kg, 12/14/22 6:58:00 EDT, Weight Dosing Start Date: 12/28/22 Status: Ordered Start: 07-22-2022 take 1 capsule by [facility] three times daily gabapentin 400 mg Cap [...] 21 tab(s), Refills(s) 0, Pharmacy: [facility] #[id number], 157.5, cm, 12/14/22 6:58:00 EDT, Height/Length Dosing, [...] disease (9 sources) Atherosclerotic heart disease of [place] coronary artery with unstable angina pectoris; Translations: [...] Onset: 09-10-2021 Episodic Other aftercare (2 sources) 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; Translations: [SENIOR TECHNICAL PROGRAM MANAGER (CURRENT) USE OF ASPIRIN] Onset: 03-20-2018 Episodic Other aftercare (1 source) Other skilled nursing (current) drug therapy; Translations: [OTH SENIOR TECHNICAL PROGRAM MANAGER CURRENT DRUG THERAPY] Onset: 07-29-2022 Episodic Other aftercare (1 source) 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 operator (current) use of insulin; Translations: [NURSING HOME CURRENT USE OF INSULIN] Onset: 07-29-2022 Episodic Other aftercare (1 source) [facility] (current) use of oral hypoglycemic drugs; Translations: [NURSING HOME (CURRENT) USE OF ORAL HYPOGLYCEMIC DRUGS] Onset: [...] Name Value Interpretation Reference Range Facil ity Dexa Scanson 06-08-2023 Dexa Scans [id number]#1.0 0TIFF Normal [facility] Dexa Scanson 06-03-2023 Dexa Scans [id number] 30 [id number]#1.0 0TIFF Normal [facility] .Interpretation:on HCV Ab IA Ql Comment Invalid Interpretation Code [facility] Comment on above: Result Comment: Not infected with HCV unless early or acute infection is suspected (which may be delayed in an immunocompromised individual), or other evidence exists to indicate HCV infection. Performed at: [facility] [address] [id number] PhD Ana Meyers Performed By: #### 2 [id number] ####[facility] [address] [place] [address] HCV Antibody RFX to Quant PC Ian 05-07-2023 HCV IgG IA Ql Non-Reactive Invalid Interpretation Code Non Reactive [facility] Comment on above: Result Comment: Perf ormed at: [facility] [address] [id number] PhD Ana Meyers Performed By: #### 2 [id number], [id number] ####[facility] [address] [place] [address] Family Medicine Office/Clini c Noteon 05-06-2023 Family [...] of clutter to prevent tripping and/or falling. [place] Advance Directives reviewed, forms provided to patient. [...] PCP visit. Will have labs completed with [facility]. Colonoscopy up to date, due for repeat [...] with CDC recommendation that everyone born from [birth year]322[birth year]61 get tested for Hepatitis C. This is [...] in life. Dexa scan ordered, faxed to [facility]. 4. Coronary artery disease (I25.10: Atherosclerotic heart disease of [place] coronary artery without angina pectoris) Patient follows up with Drop Hammer Set Up Operator, Dr. Mcintosh every 12 months. Last visit [...] 2 diabetes mellitus (more content not included)... Normal [facility] Comment on above: Result Comment: Elec tronically Signed By: Ivett Byrnes\.br\Date and Time Signed: 05/06/23 10:34 EST\.br\Electronically Co-Signed By: Asad Son.br\Date and Time Co-Signed: 05/05/23 14:21 EST Physician Referralon 024 Physician Referral [id number]#1. 00TIFF [facility] Screenson 05-06-2023 Screens [id number]#1.0 0TIFF [facility] Ambulatory Visit Summaryon 0 05-05-2023 Ambulatory Visit Summary PATO CORRAL:1960 Visit Date:05/05/2023 Ambulatory Visit Instructions Your Diagnosis [...] AM EDT With: Dandre Burger MD Where: [facility] Invalid Interpretation Code [address] [place] [address]- \.br\ Someone Will Contact You Regarding These Appointments\.br \ [facility] External Ambulatory Referral, Patient choice/referral by family/friend, Diabetic Education, patient wants to complete at [facility], 05/05/23 12:35:00 EST, Type 2 diabetes mellitus with hyperlipidemia [facility] Ambulatory Visit Summary PATO CORRAL :1960 Visit [...] AM EDT With: Dandre Burger MD Where: [facility] Family Medicine [place] Normal [facility] Patient Educationon 05-05-19 Patient Education Caregiving Fall [...] night-lights. ? Place frequently used items in xkny-sl-exhdz places. Lower the shelves around your home [...] the way. ? Do not use floor swazi or wax that makes floors slippery. If [...] include working with a physical therapist or sports athletic trainer to improve your strength, balance, and endurance. Where to find more information ? Centers for Disease Control and Prevention, STEAD[place]: www.cdc.gov ? National Vida on Aging: www.jeison.nih.gov Contact a health care [...] your health ca (more content not included)... [facility] Physician Orderon 04-19-2023 Physician Order [id number]#1.0 0TIFF [facility] Pre-Certification Formon Pre-Certification Form [id number]#1.0 0TIFF [facility] Ambulatory Visit Summaryon 0 04-05-2023 Ambulatory Visit Summary PATO CORRAL :1960 Visit Date:04/05/2023 Ambulatory Visit Instructions Your [...] Appointments Wednesday 11:00 AM EST With: Where: [facility] Normal [address] [id number] \.br\ You Need to Complete the Following\.br\ CT Chest, Low Dose Screening, 04/05/23, Routine, Order for future visit, Transport Mode: Ambulatory, Reason: Screening, Yes, Yes, Yes, 1, 30, Yes, 0, [id number], No, Cigarette nicotine dependence, pp_set_radiology _subspecialty, Not Required, [facility]\.br\ Medications\.br\ What How Much When Instructions\.br \ [...] numbers. This can be done either in [place] (U.S[place] or metric measurements. Note that charts and online BMI calculators are available to help you find your BMI quickly and easily without having to do these calculations yourself.\.br\ To calculate your BMI in [place] (U.S.) measurements:\.b r\ \.br\ 1. \.br\ Measure [...] Disease Control and Prevention: www.cdc.gov\.br\ ? \.br\ [place] Heart Association: www.heart.org\.b r\ ? \.br\ National Heart, Lung, and Blood Vida: www.nhlbi.nih.go v\.br\ Summary\.br\ ? \.br\ Body mass index (BMI) is a number that is calculated from a person's weight and height.\.br\ ? \.br\ BMI may help estimate how much of a person's weight is composed of fat. BMI can help identify those who may be at higher risk for certain medical problems.\.br\ ? \.br\ BMI can be measured using Hungarian measurements or metric measurements.\.b r\ ? \.br\ BMI charts are used to identify whether you are underweight, normal weight, overweight, or obese.\.br\ This information is not intended to replace advice given to you by your health care provider. Make sure you discuss any questions you have with your health care provider.\.br\ Document Revised: 11/22/2019 Document Reviewed: 09/29/2019 [employer] Patient Education ? 2022 [employer].br\ \.br\ [facility] CHEMISTRYOrdered By: Marcos Tse on 04-05-2023 HbA1c (Bld) [Mass fraction] 7.2 % High <=5.9% [facility] ChemAutoSS Family Medicine Office/Clini c Noteon 04-05-2023 [...] Recent) 3075F 3. 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 Normal [facility] Comment on above: Result Comment: Elec tronically Signed By: Tao GTZ, Dandre Solano.br\Date and Time Signed: 04/05/23 07:22 EST [id number] 04-05-2023 HbA1c (Bld) [Mass fraction] 7.2 % High <=5.9 [facility] Comment on above: Performed By: #### 7 [id number] #### [facility] Laboratory [address] [place] [address] Insurance Correspondenceon 0 04-05-2023 Insurance Correspondence [id number]#1.0 0TIFF Viola Vanessa [facility] Patient Educationon 04-05-19 24 Patient Education Nutrition BMI for Adults What [...] numbers. This can be done either in Hungarian (U.S.) or metric measurements. Note that charts and online BMI calculators are available to help you find your BMI quickly and easily without having to do these calculations yourself. To calculate your BMI in [place] (U.S.) measurements: 1. Measure your weight in [...] for Disease Control and Prevention: www.cdc.gov ? [place] Heart Association: www.heart.org ? National Heart, Lung, and Blood Vida: www.nhlbi.nih.gov Summary ? Body mass index (BMI) is a number that is calculated from a person's weight and height. ? BMI may help estimate how much of a person's weight is composed of fat. BMI can help identify those who may be at higher risk for certain medical problems. ? BMI can be measured using Hungarian measurements or metric measurements. ? BMI charts are used to identify whether you are underweight, normal weight, overweight, or obese. This information is not intended to replace advice given to you by your health care provider. Make sure you discuss any questions you have with your health care provider. Document Revised: 11/22/2019 Document Reviewed: 09/29/2019 [employer] Patient Education ? 2022 [employer]. Normal [facility] Outside Mammographyon 2022 Outside Mammography [id number]#1.0 0TIFF Normal [facility] Consent for Flu Vaccineon Consent for Flu Vaccine [id number]#1.0 0TIFF Normal [facility] Medication Consenton 023 Medication Consent [id number]#1.0 0TIFF [facility] Transfer Inon 12-29-2022 Transfer In [id number]#1.0 0TIFF Normal [facility] Family Medicine Office/Clini c Noteon 12-28-2022 [...] unspecified) - Will refill the gabapentin - [facility] signed - Oarrs reviewed Ordered: influenza virus vaccine, inactivated, 0.5 mL, Injection, IntraMuscular, Once, Stop date 12/28/22 15:00:00 EDT, Routine, Start date 12/28/22 15:00:00 EDT Drug Screen POC 55325 2. Type 2 diabetes mellitus with hyperlipidemia (E11.69: Type 2 diabetes mellitus with other specified complication) - [facility] - Will follow up in 3 months - Precautions discussed in detail. Ordered: influenza virus vaccine, inactivated, 0.5 mL, Injection, IntraMuscular, Once, Stop date 12/28/22 15:00:00 EDT, Routine, Start date 12/28/22 15:00:00 EDT Drug Screen POC 73013 3. Hyperlipidemia (E78.5: Hyperlipidemia, unspecified) - Continue on a statin Ordered: influenza virus vaccine, inactivated, 0.5 mL, Injection, IntraMuscular, Once, Stop date 12/28/22 15:00:00 EDT, Routine, Start date 12/28/22 15:00:00 EDT Drug Screen POC 89027 4. Long-term insulin use (Z79.4: [facility] (current) use of insulin) - Continue insulin as discussed Ordered: influenza virus vaccine, inactivated, 0.5 mL, Injection, IntraMuscular, Once, Stop date 12/28/22 15:00:00 EDT, Routine, Start date 12/28/22 15:00:00 EDT Drug Screen POC 06093 5. BMI 35.0-35.9,adult (Z68.35: Body mass index [BMI] 35.0-35.9, adult) - BMI education given Ordered: influenza virus vaccine, inactivated, 0.5 mL, Injection, IntraMuscular, Once, Stop date 12/28/22 15:00:00 EDT, Routine, Start date 12/28/22 15:00:00 EDT Drug Screen POC 90103 6. Class 1 obesity due to excess [...] Flu sot given Ordered: FIRST VACCINE w/o Blood Bank Laboratory Technician Admin Charge 44518 Follow-up No qualifying data available Problem List/Past [...] Social Hist (more content not included)... Normal [facility] Comment on above: Result Comment: Elec tronically Signed By: Tao GTZ, Dandre Solano.br\Date and Time Signed: 12/28/22 14:48 EDT Pre-Visit Planningon 023 Pre-Visit Planning - From: Krupa Olivera To: Dandre Burger MD; Sent: 12/24/2022 15:29:10 EDT Subject: Pre-Visit Planning Due Date/Time: 12/24/2022 15:29:00 EDT Caller Name: PATO CORRAL; Caller Number: , Miquel Wa Dr. Burger. During a pre-visit planning chart [...] feel free to contact me at extension [phone]. Thank you! Krupa Olivera LPN From: Dandre Burger MD To: Krupa Olivera; Sent: 12/28/2022 12:36:30 EDT Subject: RE: Pre-Visit Planning Caller Name: PATO CORRAL; Caller Number: Hailey , M Lets see how she is doing today. Normal [address] [place] [address] Ambulatory Visit Summaryon 1 Ambulatory Visit Summary [...] AM EDT With: Dandre Burger MD Where: [facility] Auto Diffon 12-14-2022 Basophils/100 WBC (Bld) 0.6 % Normal 0.0-2.0 [facility] Comment on above: Order Comment: Order Added by Discern Expert. Performed By: #### 2 [id number], [id number], 8348042, 7852154, [id number], 80531749, 7622834 #### [facility] [address] [place] [address]872 Basophils/Leukocyte s Auto (Bld) [Pure # fraction] 0.1 E9/L Normal 0.0-0.2 [facility] Comment on above: Order Comment: Order Added by Discern Expert. Performed By: #### 2 574418, [id number], 7231621, 3897264, 883290897, 06163503, 5140538 #### [facility] [address] [place] [address] Eosinophils/100 WBC (Bld) 3.2 % Normal 0.0-8.0 [facility] Comment on above: Order Comment: Order Added by Discern Expert. Performed By: #### 2 013339, 31937303, 2940198, 4973650, 535812076, 33179935, 0372777 #### [facility] [address] [place] [address]442 Eosinophils/Leukocy kaleb Auto (Bld) [Pure # fraction] 0.3 E9/L Normal 0.0-0.5 [facility] Comment on above: Order Comment: Order Added by Discern Expert. Performed By: #### 2 310729, 31287350, 8182444, 9833710, 507034750, 36342941, 3142497 #### [facility] [address] [place] [address] 97489 Lymphocytes/100 WBC (Bld) 28.8 % Normal 14.0-50.0 [facility] Comment on above: Order Comment: Order Added by Danilo Expert. Performed By: #### 2 016347, 15910425, 8745558, 1384924, 192459496, 90583276, 4180336 #### [facility] Laboratory [address] [place] [address] Lymphocytes/Leukocy kaleb Auto (Bld) [Pure # fraction] 2.8 E9/L Normal 1.0-4.0 [facility] Comment on above: Order Comment: Order Added by Discern Expert. Performed By: #### 2 428880, 26358705, 3627848, 8910573, 457221008, 21047064, 4743128 #### [facility] [address] [place] [address] 61348 Monocytes/100 WBC (Bld) 7.4 % Normal 4.0-14.0 [facility] Comment on above: Order Comment: Order Added by Discern Expert. Performed By: #### 2 920357, 99292063, 6394599, 5249218, 490692551, 56765960, 1655387 #### [facility] [address] [place] [address] 22850 Monocytes/Leukocyte s Auto (Bld) [Pure # fraction] 0.7 E9/L Normal 0.2-1.0 [facility] Comment on above: Order Comment: Order Added by Discern Expert. Performed By: #### 2 086682, 52034722, 7986202, 0338820, 724689940, 07900568, 6479162 #### [facility] [address] [place] [address] 96733 Neutrophils/100 WBC (Bld) 60.0 % Normal 36.0-75.0 [facility] Comment on above: Order Comment: Order Added by Discern Expert. Performed By: #### 2 177178, 98474542, 1627557, 9565698, 527375586, 22513697, 6472681 #### [facility] [address] [place] [address]5900 Neutrophils/Leukocy kaleb Auto (Bld) [Pure # fraction] 5.9 E9/L Normal 2.0-7.5 [facility] Comment on above: Order Comment: Order Added by Discern Expert. Performed By: #### 2 704758, 56727202, 9546001, 1323997, 032200597, 44918100, 0305569 #### [facility] [address] [place] [address] 49953 CBC w/ Auto Diffon 3 Erythrocyte distribution width (RBC) [Ratio] 15.8 % High 10.9-14.2 [facility] Comment on above: Performed By: #### 2 106349, 46362399, 6739614, 7141957, 378301575, 68358890, 6532077 #### [facility] [address] [place] [address] Hematocrit (Bld) [Volume fraction] 37.6 % Normal 34.0-46.0 [facility] Comment on above: Performed By: #### 2 116272, 77065032, 6809445, 6155951, 185599820, 61510955, 9032386 #### [facility] [address] [place] [address] Hemoglobin (Bld) [Mass/Vol] 12.1 g/dL Normal 12.0-16.0 [facility] Comment on above: Performed By: #### 2 233350, 54290445, 2235664, 8034209, 624536624, 14880750, 6839549 #### [facility] [address] [place] [address] 48767 MCH (RBC) [Entitic mass] 25.7 pg Low 27.0-34.0 [facility] Comment on above: Performed By: #### 2 497118, 70635163, 7719828, 4344703, 758295649, 74708535, 4348930 #### [facility] [address] [place] [address] MCHC (RBC) [Mass/Vol] 32.3 g/dL Normal 31.4-36.0 [facility] Comment on above: Performed By: #### 2 334823, 45606093, 7584947, 0832885, 700849802, 83240927, 4858656 #### [facility] [address] [place] [address] MCV (RBC) [Entitic vol] 79.6 fL Low 80.0-100.0 [facility] Comment on above: Performed By: #### 2 581904, 90293110, 2217520, 3704973, 614649594, 59743278, 2946784 #### [facility] [address] [place] [address] Platelet mean volume (Bld) [Entitic vol] 7.2 fL Normal 6.4-10.8 [facility] Comment on above: Performed By: #### 2 240647, 95093937, 5453283, 5858107, 540325513, 86690291, 7569758 #### [facility] [address] [place] [address] 47611 Platelets (Bld) [#/Vol] 281.0 E9/L Normal 150.0-500.0 [facility] Comment on above: Performed By: #### 2 274055, 68101523, 3814483, 5967131, 574758328, 29926245, 7086041 #### [facility] [address] [place] [address] 32063 RBC (Bld) [#/Vol] 4.7 E12/L Normal 4.3-5.9 [facility] Comment on above: Performed By: #### 2 590524, 43639601, 3040737, 3435496, 096592327, 71188746, 0252889 #### [facility] [address] [place] [address] 82193 WBC corrected for nucl RBC Auto (Bld) [#/Vol] 9.8 E9/L Normal 4.0-11.0 [facility] Comment on above: Performed By: #### 2 729806, 41865193, 9774880, 6929532, 077933557, 93732858, 5195781 #### [facility] [address] [place] [address] CHEMISTRYOrdered By: Edwin bundy on 12-14-2022 Albumin [...] g/dL Normal 3.3 - 5.0 gm/dL F C Remisol Albumin/Globulin [Mass ratio] 1.0 {ratio} Low [...] 47 mg/dL High 7 - 40 mg/dL FT Remisol CO2 [Moles/Vol] 23 mmol/L Normal 21 - 31 mmol/L [facility] Remisol Creatinine [Mass/Vol] 1.4 mg/dL High 0.5 - 1.3 mg/dL [facility] Remisol GFR/1.73 sq M.predicted among non-blacks MDRD (S/P/Bld) [Vol rate/Area] 42 mL/min/1.73 m2 Low >=59mL/min/1.73 m2 [facility] Comment on above: Interpretive Data: C hronic kidney disease could be indicated at eGFR's of less than 60 mL/min/1.73m2. Kidney failure is indicated at less than 15 mL/min/1.73m2. Globulin (S) [Mass/Vol] 3.6 g/dL Normal 1.4 - 4.0 gm/dL FT Remisol Glucose [Mass/Vol] 167 mg/dL Normal 55 - 199 mg/dL [facility] Comment on above: Interpretive Data: I f this glucose result represents a fasting glucose, interpretation should refer to the following reference range: 55-99 mg/dL Potassium [Moles/Vol] 4.7 mmol/L Normal 3.5 - 5.3 mmol/L [facility] Protein [Mass/Vol] 7.2 g/dL Normal 6.0 - 7.8 gm/dL [facility] Sodium [Moles/Vol] 139 mmol/L Normal 135 - 145 mmol/L [facility] Triglyceride [Mass/Vol] 233 mg/dL High <=149mg/dL [facility] TSH Qn 3.07 m[IU]/L Normal 0.34 - 5.60 mcIU/mL [facility] Urea nitrogen [Mass/Vol] 22 mg/dL High 5 - 21 mg/dL [facility] Urea nitrogen/Creatinine [Mass ratio] 16 mg/mg Normal 10 - 20 [facility] CHEMISTRYOrdered By: Leigh Magana on 12-14-2022 HbA1c (Bld) [Mass fraction] 9.0 % High <=5.9% [facility] ChemAutoSS CMPon 12-14-2022 Albumin [Mass/Vol] 3.6 g/dL Normal 3.3-5.0 [facility] Comment on above: Performed By: #### 2 336858, 17680491, 8750102, 0687035, 779493295, 06185529, 4500006 ####[facility] [address] [place] [address] Albumin/Globulin (S) [Mass conc ratio] 1.0 Low 1.1-2.2 [facility] Comment on above: Performed By: #### 2 691233, 10258180, 8048263, 4323368, 494089123, 47014701, 1552768 ####[facility] [address] [place] [address] ALP [Catalytic activity/Vol] 81 Int._Unit/L Normal 21-98 [facility] Comment on above: Performed By: #### 2 753974, 04089885, 9845891, 5091235, 585131906, 15868581, 4856301 ####[facility] [address] [place] [address] ALT No additional P-5'-P [Catalytic activity/Vol] 28 Int._Unit/L Normal 6-46 [facility] Comment on above: Performed By: #### 2 308640, 09226453, 0543216, 1455200, 624090114, 26951525, 6613512 ####[facility] [address] [facility] [address] Anion gap [Moles/Vol] 11 mmol/L Normal 6-16 [facility] Comment on above: Performed By: #### 2 558004, 39398014, 2651657, 0557151, 729714747, 07929924, 0518869 ####[facility] [address] [place] [address] AST [Catalytic activity/Vol] 25 Int._Unit/L Normal 5-43 [facility] Comment on above: Performed By: #### 2 701009, 92607895, 9999154, 7631154, 673278301, 12636950, 7350969 ####[facility] [address] [place] [address] Bilirubin [Mass/Vol] 0.3 mg/dL Normal 0.0-1.1 [facility] Comment on above: Performed By: #### 2 029261, 00905600, 8465508, 1417979, 133638885, 61736375, 7577832 ####[facility] [address] [place] [address] Calcium [Mass/Vol] 9.2 mg/dL Normal 8.9-11.1 [facility] Comment on above: Performed By: #### 2 267274, 47164881, 2754036, 0471298, 452738142, 09563359, 5692426 ####[facility] [address] [place] [address] Chloride [Moles/Vol] 110 mmol/L Normal 101-111 [facility] Comment on above: Performed By: #### 2 562371, 59071681, 0815100, 9296549, 594856765, 44524801, 9478249 ####[facility] [address] [place] [address] CO2 [Moles/Vol] 23 mmol/L Normal 21-31 [facility] Comment on above: Performed By: #### 2 957796, 84248969, 6473430, 7864155, 355582984, 66686072, 4511784 ####[facility] [address] [place] [address] Creatinine [Mass/Vol] 1.4 mg/dL High 0.5-1.3 [facility] Comment on above: Performed By: #### 2 211455, 37538217, 8639591, 4108485, 106709825, 01843117, 8947728 ####[facility] [address] [place] [address] Globulin (S) [Mass/Vol] 3.6 g/dL Normal 1.4-4.0 [facility] Comment on above: Performed By: #### 2 351335, 03591317, 9896420, 0569873, 988816699, 41744279, 7276551 ####[facility] [address] [place] [address] Glucose [Mass/Vol] 167 mg/dL Normal 55-199 [facility] Comment on above: Result Comment: If t his glucose result represents a fasting glucose, interpretation should refer to the following reference range: 55-99 mg/dL Performed By: #### 2 360351, 18837001, 4116403, 2504547, 284271165, 91157758, 0312362 ####[facility] [address] [place] [address] Potassium [Moles/Vol] 4.7 mmol/L Normal 3.5-5.3 [facility] Comment on above: Performed By: #### 2 622270, 47988300, 3833316, 1065560, 541507384, 88656457, 6715459 ####[facility] [address] [place] [address] Protein [Mass/Vol] 7.2 g/dL Normal 6.0-7.8 [facility] Comment on above: Performed By: #### 2 772937, 26575526, 2120786, 0903453, 189116800, 78285245, 2846177 ####[facility] [address] [place] [address] Sodium [Moles/Vol] 139 mmol/L Normal 135-145 [facility] Comment on above: Performed By: #### 2 860440, 84640179, 9499510, 8323152, 820661202, 85400499, 7913243 ####[facility] [address] [place] [address] Urea nitrogen [Mass/Vol] 22 mg/dL High 5-21 [facility] Comment on above: Performed By: #### 2 884856, 19106429, 3792439, 5164368, 811741627, 16282233, 3409416 ####[facility] [address] [place] [address] Urea nitrogen/Creatinine [Mass ratio] 16 No Units Normal 10-20 [facility] Comment on above: Performed By: #### 2 160196, 06094020, 2651398, 8254994, 275603832, 51478550, 4681200 ####[facility] [address] [place] [address] Family Medicine Office/Clini c Noteon 12-14-2022 Family Medicine Office/Clinic Note HPI Staff Pato is a 62 year old female presenting to establish care Establish Care: History:CKD,COPD,DM,HT N,Depression Last provider: Samuel Any recent labs: none Health Maintenance UTD: [...] day(s), # 21 tab(s), Refills(s) 0, Pharmacy: [facility] #[id number], 157.5, cm, 12/14/22 6:58:00 EDT, Height/Length Dosing, [...] day(s), # 21 tab(s), Refills(s) 0, Pharmacy: [facility] #[id number], 157.5, cm, 12/14/22 6:58:00 EDT, Height/Length Dosing, [...] day(s), # 21 tab(s), Refills(s) 0, Pharmacy: [facility] #[id number], 157.5, cm, 12/14/22 6:58:00 EDT, Height/Length Dosing, [...] on m (more content not included)... Normal [facility] Comment on above: Result Comment: Elec [...] 7.4 % Normal 4.0 - 14.0 % [facility] HemeAutoSS Monocytes/Leukocyte s Auto (Bld) [Pure # fraction] 0.7 E9/L Normal 0.2 - 1.0 E9/L [facility] HemeAutoSS Neutrophils/100 WBC (Bld) 60.0 % Normal 36.0 - 75.0 % [facility] HemeAutoSS Neutrophils/Leukocy kaleb Auto (Bld) [Pure # fraction] 5.9 E9/L Normal 2.0 - 7.5 E9/L [facility] HemeAutoSS HEMATOLOGYOrdered By: Lizbet Almeida on 12-14-2022 Erythrocyte distribution width (RBC) [Ratio] 15.8 % High 10.9 - 14.2 % [facility] HemeAutoSS Hematocrit (Bld) [Volume fraction] 37.6 % Normal 34.0 - 46.0 % [facility] HemeAutoSS Hemoglobin (Bld) [Mass/Vol] 12.1 g/dL Normal 12.0 - 16.0 gm/dL [facility] HemeAutoSS MCH (RBC) [Entitic mass] 25.7 pg Low 27.0 - 34.0 pg [facility] HemeAutoSS MCHC (RBC) [Mass/Vol] 32.3 g/dL Normal 31.4 - 36.0 gm/dL [facility] HemeAutoSS MCV (RBC) [Entitic vol] 79.6 fL Low 80.0 - 100.0 fL [facility] HemeAutoSS Platelet mean volume (Bld) [Entitic vol] 7.2 fL Normal 6.4 - 10.8 fL [facility] HemeAutoSS Platelets (Bld) [#/Vol] 281.0 E9/L Normal 150.0 - 500.0 E9/L [facility] HemeAutoSS RBC (Bld) [#/Vol] 4.7 E12/L Normal 4.3 - 5.9 E12/L [facility] HemeAutoSS WBC corrected for nucl RBC Auto (Bld) [#/Vol] 9.8 E9/L Normal 4.0 - 11.0 E9/L [facility] HemeAuto[facility] ImuO4ccm 12-14-2022 HbA1c (Bld) [Mass fraction] 9.0 % High <=5.9 [facility] Comment on above: Performed By: #### 2 829292, 87890574, 1719216, 5138849, 700205207, 16651228, 7345769 ####[facility] [address] [place] [address] Lipid Panelon 12-14-2022 Cholesterol [Mass/Vol] 96 mg/dL Low 120-200 [facility] Comment on above: Performed By: #### 2 806335, 28179234, 7278085, 2508473, 991664174, 04439630, 5643637 ####[facility] [address] [place] [address] Cholesterol in HDL [Mass/Vol] 36 mg/dL Invalid Interpretation Code [facility] Comment on above: Result Comment: HDL > or equal to 60 mg/dL: Low cardiovascular risk HDL < 40 mg/dL : High cardiovascular risk Performed By: #### 2 386792, 61440268, 1105315, 0984520, 306545106, 78192931, 3034949 ####[facility] [address] [place] [address] Cholesterol in LDL [Mass/Vol] 30 mg/dL Normal <=129 [facility] Comment on above: Performed By: #### 2 349944, 60125054, 5951073, 8177565, 772763710, 71710227, 0899469 ####[facility] [address] [place] [address] Cholesterol in VLDL [Mass/Vol] 47 mg/dL High 7-40 [facility] Comment on above: Performed By: #### 2 263145, 63115849, 4101454, 4560026, 284426322, 33391364, 4193575 ####[facility] [address] [place] [address] Triglyceride [Mass/Vol] 233 mg/dL High <=149 [facility] Comment on above: Performed By: #### 2 024645, 92099617, 2113706, 5683901, 812476896, 75486446, 3833526 ####[facility] [address] [place] [address] Patient Educationon 12-15-19 Patient Education Nutrition BMI [...] numbers. This can be done either in [place] ([place] or metric measurements. Note that charts and online BMI calculators are available to help you find your BMI quickly and easily without having to do these calculations yourself. To calculate your BMI in [place] ([place] measurements: 1. Measure your weight in [...] for Disease Control and Prevention: www.cdc.gov ? [place] Heart Association: www.heart.org ? National Heart, Lung, and Blood Vida: www.nhlbi.nih.gov Summary ? Body mass index (BMI) is a number that is calculated from a person's weight and height. ? BMI may help estimate how much of a person's weight is composed of fat. BMI can help identify those who may be at higher risk for certain medical problems. ? BMI can be measured using Hungarian measurements or metric measurements. ? BMI charts are used to identify whether you are underweight, normal weight, overweight, or obese. This information is not intended to replace advice given to you by your health care provider. Make sure you discuss any questions you have with your health care provider. Document Revised: 11/22/2019 Document Reviewed: 09/29/2019 [employer] Patient Education ? 2022 [employer] Normal [facility] TSH With T4fr Reflexon 12-14 TSH Qn 3.07 m[IU]/L Normal 0.34-5.60 [facility] Comment on above: Performed By: #### 2 362997, 35386515, 4067169, 9976063, 836843919, 84867500, 3115184 ####[facility] [address] [place] [address] U Microalbon 12-14-2022 Albumin DL <= 20 mg/L (U) [Mass/Vol] 61.6 microgram/mL High 0.0-19.0 [facility] Comment on above: Performed By: #### 1 5990285, 6830000574 ####[facility] [address] [place] [address] U Protein/Creat Ratioon Albumin Elph (U) [Mass fraction] 86.6 mg/dL Invalid Interpretation Code [facility] Comment on above: Result Comment: The reference range and other method performance specifications have not been established for this test; results should be integrated into the clinical context for interpretation. Performed By: #### 1 3438567, [id number] ####[facility] [address] [place] [address] Creatinine (U) [Mass/Vol] 214.9 mg/dL Invalid Interpretation Code [facility] Comment on above: Result Comment: The reference range and other method performance specifications have not been established for this test; results should be integrated into the clinical context for interpretation. Performed By: #### 1 8089499, [id number] ####[facility] [address] [place] [employer] [place] [address] U Prot/Creat Ratio 403.00 mg/gm Cr High .00-200.00 F [facility] Comment on above: Performed By: #### 1 4748483, [id number] ####[facility] [address] [place] [address] eGFRon 12-14-2022 GFR/1.73 sq M.predicted among non-blacks MDRD (S/P/Bld) [Vol rate/Area] 42 mL/min/1.73 m2 Low >=59 [facility] Comment on above: Order Comment: Order added by Discern Expert. Result Comment: [facility] Nurse Staff riley kidney disease could be indicated at eGFR's of less than 60 mL/min/1.73m2. Kidney failure is indicated at less than 15 mL/min/1.73m2. Performed By: #### 2 289811, 03219994, 7784039, 3967344, 092440873, 72166854, 1253284 ####[facility] [address] [place] [address] Auth for Release of Medical Recordson 12-03-2022 Auth for Release of Medical Records [id number]#1.0 0CD:127 Normal [facility] Office Visiton 09-29-2022 Follow-up visit [id number] Pato Corral 1960 F Date Provider Department Sims 09/29/2022 MARTINE ASTUDILLO [facility] No family history on file Level of Service:60134 ME OFFICE/OUTPATIENT ESTABLISHED LOW MDM 20-29 MIN Reason for Visit and Comments: Follow-up [007559] - 1 YEAR FOLLOW UP Normal [facility] Operative Reporton 3 Operative Report [id number]#1.0 0CD:127 Normal [facility] Outside Colonoscopyon 2022 Outside Colonoscopy [id number]#1.0 0CD:127 Normal [facility] Outside Colonoscopy [id number]#1.00 CD:127 Normal [facility] Reminderson 08-31-2022 Reminders - From: Tammi Mejia LPN To: N - Clinical; Sent: 08/31/2022 09:32:45 EDT Show up: 07/27/2027 07:00:00 EDT Subject: colonoscopy recall Due Date/Time: 08/27/2027 07:00:00 EDT Reminder/Recall Patient due for colonoscopy 08/27/2027 due to family history of colon cancer. Normal [facility] Lab Reportson 08-26-2022 Lab Reports [id number]#1. 00CD:127 Normal [facility] Consent for Procedure/Surger yon 08-03-2022 Consent for Procedure/Surgery [id number]#1.0 0CD:127 Normal [facility] Facesheeton 08-03-2022 Facesheet [id number]#1.0 0CD:127 Normal [facility] Ambulatory Visit Summaryon 0 07-31-2022 Ambulatory Visit Summary PATO CORRAL :1960 Visit Date:07/31/2022 Ambulatory Visit Instructions Your Diagnosis Screening for malignant neoplasm of colon Family history of colon cancer Your Care Team Attending Physician - Job MOORE MD Primary Care Physician - Gianfranco Lau DO Referring Physician - Gianfranco Lau DO [...] insulin glargine (Lantus 100 units/mL Injection-Insulin) metformin-sitagliptin (Marumet 50 mg/1000 mg oral tablet) multivitamin (Multi [...] Screening for malignant neoplasm of colon Smoker Normal [facility] Pre-Certification Formon Pre-Certification Form [id number]#1. 00CD:127 Normal [facility] CBC AUTO DIFFon 07-28-2022 BASO # 0.1 103/ul Normal 0.0-0.1 [facility] Comment on above: Performed By: #### C BC ####[facility] [address] [place], [place] [address]DrMariia Harrison Basophils/100 WBC (Bld) 0.6 % Normal 0.2-2.0 [facility] Comment on above: Performed By: #### C BC ####[facility] [address] [place], [place] [address]DrMariia Harrison EO # 0.3 103/ul Normal 0.0-0.7 [facility] Comment on above: Performed By: #### C BC ####[facility] [address] [place], [place] [address]DrMariia Harrison Eosinophils/100 WBC (Bld) 3.9 % Normal 0.9-7.0 [facility] Comment on above: Performed By: #### C BC ####[facility] [address] [place], [place] [address]DrMariia Harrison Erythrocyte distribution width (RBC) [Ratio] 14.6 % Normal 11.0-15.0 [facility] Comment on above: Performed By: #### C BC ####[facility] [address] [place], [place] [address]DrMariia Harrison Hematocrit (Bld) [Volume fraction] 38.8 % Normal 36.0-48.0 [facility] Comment on above: Performed By: #### C BC ####[facility] [address] [place], [place] [address]Dr. Tremayne Harrison Hemoglobin (Bld) [Mass/Vol] 12.1 g/dL Normal 12.0-16.0 [facility] Comment on above: Performed By: #### C BC ####[facility] [address] [place] [address]DrMariia Harrison IG # 0.02 10e3/ul Normal 0.00-0.03 [facility] Comment on above: Performed By: #### C BC ####[facility] [address] [place], [place] [address]Dr. Tremayne Harrison IG % 0.2 % Normal 0.0-0.5 [facility] Comment on above: Performed By: #### C BC ####[facility] [address] [place], [place] [address]DrMariia Harrison LYMPH # 2.8 103/ul Normal 1.2-3.8 [facility] Comment on above: Performed By: #### C BC ####[facility] [address] [place], [place] [address]DrMariia Harrison Lymphocytes/100 WBC (Bld) 31.6 % Normal 20.5-60.0 [facility] Comment on above: Performed By: #### C BC ####[facility] [address] [place], [place] [address]DrMariia Harrison MANUAL DIFF REQ NO Normal [facility] Comment on above: Performed By: #### C BC ####[facility] [address] [place], [place] [address]DrMariia Harrison MCH (RBC) [Entitic mass] 25.2 pg Critically low 26.7-34.0 [facility] Comment on above: Performed By: #### C BC ####[facility] [address] [place], [place] [address]DrMariia Harrison MCHC (RBC) [Mass/Vol] 31.2 g/dL Normal 29.9-35.2 [facility] Comment on above: Performed By: #### C BC ####[facility] [address] [place], [place] [address]DrMariia Harrison MCV (RBC) [Entitic vol] 80.7 fL Critically low 81.0-99.0 [facility] Comment on above: Performed By: #### C BC ####[facility] [address] [place], [place] [address]DrMariia Tremayne Harrison MONO # 0.8 103/ul Normal 0.3-0.8 [facility] Comment on above: Performed By: #### C BC ####[facility] [address] [place], [place] [address]DrMariia Tremayne Hunter Monocytes/100 WBC (Bld) 8.5 % Normal 1.7-12.0 [facility] Comment on above: Performed By: #### C BC ####[facility] [address] [place], [place] [address]DrMariia Tremayne Harrison NEUT # 4.9 103/ul Normal 1.4-6.5 [facility] Comment on above: Performed By: #### C BC ####[facility] [address] [place], [place] [address]DrMariia Tremayne Hunter Neutrophils/100 WBC (Bld) 55.2 % Normal 43.0-75.0 [facility] Comment on above: Performed By: #### C BC ####[facility] [address] [place], [place] [address]DrMariia Tremayne Hunter Platelet mean volume (Bld) [Entitic vol] 8.5 fL Critically low 9.5-13.5 [facility] Comment on above: Performed By: #### C BC ####[facility] [address] [place], [place] [address]DrMariia Tremayne Hunter PLT 273 103/ul Normal 150-450 [facility] Comment on above: Performed By: #### C BC ####[facility] [address] [place], [place] [address]DrMariia Sánchezniki Hunter RBC 4.81 106/ul Normal 4.20-5.40 [facility] Comment on above: Performed By: #### C BC ####[facility] [address] [place], [place] [address]DrMariia Sánchezniki Harrison WBC 8.8 103/ul Normal 4.0-11.0 [facility] Comment on above: Performed By: #### C ####[facility] [address] [place], [place] [address] CHEST W CONon 07-28-2022 [...] of liver is recommended. Electronically authenticated by: SAVITA UNLU Date: 2022-07-28 17:05 Normal [facility] D-DIMERon 07-28-2022 D-DIMER 0.37 mg/L FEU Normal <=0.59 [facility] Comment on above: Performed By: #### D DIM #### [facility] [address] [place] [address] Dr. Tremayne Harrison D-DIMER COMMENTS SEE BELOW Normal [facility] Comment on above: Result Comment: Incr eases [...] hospitalization. Performed By: #### D DIM #### [facility] [address] [place] [address] Dr. Tremayne Harrison PROF 14(COMP METB)on 023 Albumin [Mass/Vol] 3.2 g/dL Critically low 3.4-5.0 [facility] Comment on above: Performed By: #### C DIANA HSTROPN #### [facility] [address] [place] [address] Dr. Tremayne Harrison Albumin/Globulin [Mass ratio] 0.8 {ratio} Normal [facility] Comment on above: Performed By: #### C DIANA HSTROPN #### [facility] [address] [place] [address] Dr. Tremayne Harrison ALP [Catalytic activity/Vol] 98 U/L Normal 46-116 [facility] Comment on above: Performed By: #### C DIANA HSTROPN #### [facility] [address] [place] [address] Dr. Tremayne Harrison ALT [Catalytic activity/Vol] 38 U/L Normal 14-59 [facility] Comment on above: Performed By: #### C DIANA HSTROPN #### [facility] [address] [address] [address] Tremayne Harrison Anion gap [Moles/Vol] 12.2 mmol/L Normal [facility] Comment on above: Performed By: #### C MP, HSTROPN #### [facility] [address] [place] [address] Dr. Tremayne Harrison AST [Catalytic activity/Vol] 19 U/L Normal 15-37 [facility] Comment on above: Performed By: #### C MP, HSTROPN #### [facility] [address] [place] [address] Dr. Tremayne Harrison Bilirubin [Mass/Vol] 0.5 mg/dL Normal 0.2-1.0 [facility] Comment on above: Performed By: #### C MP, HSTROPN #### [facility] [address] [place] [address] Dr. Tremayne Harrison Calcium [Mass/Vol] 9.6 mg/dL Normal 8.5-10.1 [facility] Comment on above: Performed By: #### C MP, HSTROPN #### [facility] [address] [place] [address] Dr. Tremayne Harrison Chloride [Moles/Vol] 106 mmol/L Normal 98-107 [facility] Comment on above: Performed By: #### C MP, HSTROPN #### [facility] [address] [place] [address] Dr. Tremayne Harrison CO2 [Moles/Vol] 27.5 mmol/L Normal 21.0-32.0 [facility] Comment on above: Performed By: #### C MP, HSTROPN #### [facility] [address] [place] [address] Dr. Tremayne Harrison Creatinine [Mass/Vol] 1.15 mg/dL Critically high 0.55-1.02 [facility] Comment on above: Performed By: #### C MP, HSTROPN #### [facility] [address] [place] [address] Dr. Tremayne Harrison EGFR-AF BAHRAINI 58 mL/min/1.73m2 Critically low >=60 [facility] Comment on above: Performed By: #### C MP, HSTROPN #### [facility] [address] [address] [address] Tremayne Harrison EGFR-NON AF BAHRAINI 48 mL/min/1.73m2 Critically low >=60 [facility] Comment on above: Performed By: #### C MP, HSTROPN #### [facility] [address] [address] [address] Tremayne Harrison Globulin (S) [Mass/Vol] 4.1 g/dL Normal [facility] Comment on above: Performed By: #### C MP, HSTROPN #### [facility] [address] [address] [address] Tremayne Harrison Glucose [Mass/Vol] 145 mg/dL Critically high 74-106 T [facility] Comment on above: Performed By: #### C MP, HSTROPN #### [facility] [address] [place] [address] Dr. Tremayne Harrison Potassium [Moles/Vol] 4.7 mmol/L Normal 3.5-5.1 [facility] Comment on above: Performed By: #### C MP, HSTROPN #### [facility] [address] [place] [address] Dr. Tremayne Harrison Protein [Mass/Vol] 7.3 g/dL Normal 6.4-8.2 [facility] Comment on above: Performed By: #### C MP, HSTROPN #### [facility] [address] [address] [address] Tremayne Harrison Sodium [Moles/Vol] 141 mmol/L Normal 136-145 [facility] Comment on above: Performed By: #### C MP, HSTROPN #### [facility] [address] [place] [address] Dr. Tremayne Harrison Urea nitrogen [Mass/Vol] 15.0 mg/dL Normal 7.0-18.0 [facility] Comment on above: Performed By: #### C MP, HSTROPN #### [facility] [address] [place] [address] Dr. Tremayne Harrison Urea nitrogen/Creatinine [Mass ratio] 13.0 mg/mg Normal [facility] Comment on above: Performed By: #### C DIANA HSTROPN #### [facility] [address] [address] [address] Tremayne Harrison TROPONIN, HIGH SENSITIVITYon 07-28-2022 HSTROP 10.9 pg/mL Normal 4.0-51.3 [facility] Comment on above: Result Comment: CUT- OFF POINTS HAVE BEEN ESTABLISHED BASED ON THE FOURTH UNIVERSAL DEFINITIONS OF MYOCARDIAL INFARCTION. THE UPPER REFERENCE LIMIT (URL) OF TROPONIN, DEFINED THE 99TH PERCENTILE OF cTnI DISTRIBUTION IN A REFERENCE POPULATION, HAS BEEN CONFIRMED THE DECISION THRESHOLD FOR [place] DIAGNOSIS. Performed By: #### C DIANA HSTROPN #### [facility] [address] [address] [address] Tremayne Harrison XR CHEST 1 Von [...] is essentially unchanged. Electronically authenticated by: PAOLO PHAM Date: 2022-07-28 15:13 Normal [facility] GLYCOHEMOGLOBIN A1Con 2022 ADA RECOMMENDATION SEE BELOW Normal [facility] Comment on above: Result Comment: ADA RECOMMENDED LIMIT 4.0 - 6.0 ADA THERAPEUTIC TARGET < 7.0 ACTION SUGGESTED > 7.0 Performed By: #### A 1C #### [facility] [address] [address] [address] Tremayne Harrison Glucose [Mass/Vol] 177 mg/dL Normal [facility] Comment on above: Performed By: #### A 1C #### [facility] [address] [address] [address] Tremayne Harrison HbA1c (Bld) [Mass fraction] 7.8 % Critically high 4.5-6.2 [facility] Comment on above: Performed By: #### A 1C #### [facility] [address] [address] [address] Tremayne Harrison Provider Letteron 07-15-2022 Provider Letter July 15, 2022 [address] [place] [address] PATO CORRAL 1960 Dear Pato , We have been trying to reach you with no success. It is important that you return our call regarding your referral from Dr. Llanos upon receiving this letter. Also, at the time of your call, please provide us with your current information. Thank you for your prompt attention to this matter. Sincerely, General Surgery [phone] Normal [facility] Patient Correspondenceon Patient Correspondence [id number] 0CD:127 Normal [facility] Physician Referralon 023 Physician Referral [id number] CD:127 Normal [facility] GLYCOHEMOGLOBIN A1Con 2022 ADA RECOMMENDATION SEE BELOW Normal [facility] Comment on above: Result Comment: ADA RECOMMENDED LIMIT 4.0 - 6.0 ADA THERAPEUTIC TARGET < 7.0 ACTION SUGGESTED > 7.0 Performed By: #### A 1C #### [facility] [address] [address] [address] Tremayne Harrison Glucose [Mass/Vol] 214 mg/dL Normal [facility] Comment on above: Performed By: #### A 1C #### [facility] [address] [address] [address] Tremayne Harrison HbA1c (Bld) [Mass fraction] 9.1 % Critically high 4.5-6.2 [facility] Comment on above: Performed By: #### A 1C #### [facility] [address] [address] [address] Tremayne Harrison GLYCOHEMOGLOBIN A1Con 2021 ADA RECOMMENDATION SEE BELOW Normal [facility] Comment on above: Result Comment: ADA RECOMMENDED LIMIT 4.0 - 6.0 ADA THERAPEUTIC TARGET < 7.0 ACTION SUGGESTED > 7.0 Performed By: #### A 1C #### [facility] [address] [address] [address] Tremayne Harrison Glucose [Mass/Vol] 223 mg/dL Normal [facility] Comment on above: Performed By: #### A 1C #### [facility] [address] [address] [address] Tremayne Harrison HbA1c (Bld) [Mass fraction] 9.4 % Critically high 4.5-6.2 [facility] Comment on above: Performed By: #### A 1C #### [facility] [address] [address] [address] Tremayne Harrison MG MAMM SCREEN 3D NELDA CADon 10-10-2021 MG MAMM SCREEN 3D NELDA CAD Patient: PATO CORRAL Exam Date: 10/10/2021 : 1960 Gender:F Ordering : DR GIANFRANCO LAU D.O. Admission #: [id number] Family : Order #: [id number] CLICK HERE TO VIEW EXAM RADIOLOGY REPORT [...] colon cancer at age 57. LOCATION: [facility] BREAST COMPOSITION: Scattered areas fibroglandular density. FINDINGS: [...] Danielle M.D. on 10/10/2021 at 11:14 Normal [facility] MICROALBUMIN, RAND URon - mALB 23.1 mg/L Normal <=30.0 [facility] Comment on above: Performed By: #### M ALBR ####[facility] [address] [address] Tremayne Harrison PROF 14(COMP METB)on 022 Albumin [Mass/Vol] 3.2 g/dL Critically low 3.4-5.0 Th e [facility] Comment on above: Performed By: #### C MP #### [facility] [address] [place] [address] Dr. Tremayne Harrison Albumin/Globulin [Mass ratio] 0.9 {ratio} Normal [facility] Comment on above: Performed By: #### C MP #### [facility] [address] [place] [address] Dr. Tremayne Harrison ALP [Catalytic activity/Vol] 103 U/L Normal 46-116 [facility] Comment on above: Performed By: #### C MP #### [facility] [address] [address] [address] Tremayne Harrison ALT [Catalytic activity/Vol] 36 U/L Normal 14-59 [facility] Comment on above: Performed By: #### C MP #### [facility] [address] [place] [address] Dr. Tremayne Harrison Anion gap [Moles/Vol] 11.8 mmol/L Normal [facility] Comment on above: Performed By: #### C MP #### [facility] [address] [address] [address] Tremayne Harrison AST [Catalytic activity/Vol] 18 U/L Normal 15-37 [facility] Comment on above: Performed By: #### C MP #### [facility] [address] [place] [address] Dr. Tremayne Harrison Bilirubin [Mass/Vol] 0.3 mg/dL Normal 0.2-1.0 [facility] Comment on above: Performed By: #### C MP #### [facility] [address] [address] [address] Tremayne Harrison Calcium [Mass/Vol] 8.7 mg/dL Normal 8.5-10.1 [facility] Comment on above: Performed By: #### C MP #### [facility] [address] [address] [address] Tremayne Harrison Chloride [Moles/Vol] 106 mmol/L Normal 98-107 [facility] Comment on above: Performed By: #### C MP #### [facility] [address] [address] [address] Tremayne Harrison CO2 [Moles/Vol] 25.6 mmol/L Normal 21.0-32.0 [facility] Comment on above: Performed By: #### C MP #### [facility] [address] [place] [address] Dr. Tremayne Harrison Creatinine [Mass/Vol] 1.09 mg/dL Critically high 0.55-1.02 [facility] Comment on above: Performed By: #### C MP #### [facility] [address] [place] [address] Dr. Tremayne Harrison EGFR-AF BAHRAINI >60 Normal >=60 [facility] Comment on above: Performed By: #### C MP #### [facility] [address] [address] [address] Tremayne Harrison EGFR-NON AF BAHRAINI 51 mL/min/1.73m2 Critically low >=60 [facility] Comment on above: Performed By: #### C MP #### [facility] [address] [place] [address] Dr. Tremayne Harrison Globulin (S) [Mass/Vol] 3.6 g/dL Normal [facility] Comment on above: Performed By: #### C MP #### [facility] [address] [place] [address] Dr. Tremayne Harrison Glucose [Mass/Vol] 210 mg/dL Critically high 74-106 T [facility] Comment on above: Performed By: #### C MP #### [facility] [id number] Tremayne Harrison Potassium [Moles/Vol] 4.4 mmol/L Normal 3.5-5.1 [facility] Comment on above: Performed By: #### C MP #### [facility] [id number] Tremayne Harrison Protein [Mass/Vol] 6.8 g/dL Normal 6.4-8.2 [facility] Comment on above: Performed By: #### C MP #### [facility] [address] [address] [address] Tremayne Harrison Sodium [Moles/Vol] 139 mmol/L Normal 136-145 [facility] Comment on above: Performed By: #### C MP #### [facility] [address] [address] [address] Tremayne Harrison Urea nitrogen [Mass/Vol] 15.0 mg/dL Normal 7.0-18.0 [facility] Comment on above: Performed By: #### C MP #### [facility] [address] [place], [place] [address] Dr. Tremayne Harrison Urea nitrogen/Creatinine [Mass ratio] 13.8 mg/mg Normal [facility] Comment on above: Performed By: #### C MP #### [facility] [address] [place], [place] [address] Dr. Tremayne Harrison CARDIAC STRESS TESTon 2021 CARDIAC STRESS TEST The [place], [place] NAME: PATO CORRAL DATE OF : MEDICAL REC#: [id number] YARD CLEANER: [address] [facility], TRANSADMIT DATE: 08/18/2021 09:35:00 TELLER COORDINATOR DATE: 08/18/2021 19:00 DICTATING PHYSICIAN: MARTINE MCINTOSH [...] by: DR MARTINE MCINTOSH 08/24/2021 10:13:00 Normal [facility] NM STRESS/REST MULTIon 08-18 NM STRESS/REST MULTI Patient: PATO CORRAL Exam Date: 08/18/2021 : 1960 Gender:F Ordering : RAJINDER MOHAMUD Admission #: [id number] Family : Order #: [id number] CLICK HERE TO VIEW EXAM RADIOLOGY REPORT [...] MD on 08/18/2021 at 14:36 Normal [facility] Pulmonary Functionon 03-02-2 019 Pulmonary Function MR #: [id number] [facility] PT. Name: Pato Corral Date: 04/25/2018 Date [...] Corral M.D. Date Trans: 05/14/2018 04:38 A/emily [id number] cc: Gianfranco Lau D.O. [address] [place] [id number] Normal The [facility] POC GLUCOSE LABon 05-03-2018 Glucose mass conc 223 mg/dL High 70-100 The [facility] Comment on above: Performed By: #### 5 0103 #### [facility] [address] [facility] [address], [facility] Glucose mass conc 261 mg/dL High 70-100 The [facility] Comment on above: Order Comment: No: D o not add to previous draw Performed By: #### 5 0103 #### [facility] [address] [facility] [place] [address], [facility] Glucose mass conc 162 mg/dL High 70-100 The [facility] Comment on above: Performed By: #### 5 0103 #### [facility] [address] [facility] [address], [facility] BASIC METABOLIC PANELon 04-15 Calcium mass conc 8.0 mg/dL Low 8.6-10.3 The [facility] Comment on above: Order Comment: No: D o not add to previous draw Performed By: #### 5 0103 #### [facility] [address] [place] [address], [place] Chloride molar conc 100 mmol/L Normal 98-107 The [facility] Comment on above: Order Comment: No: D o not add to previous draw Performed By: #### 5 0103 #### [facility] [address] [place] [address], [place] CO2 molar conc 29 mmol/L Normal 21-31 The [facility] Comment on above: Order Comment: No: D o not add to previous draw Performed By: #### 5 0103 #### [facility] [address] [place] [address], [place] Creatinine mass conc 0.74 mg/dL Normal 0.60-1.20 [facility] Comment on above: Order Comment: No: D o not add to previous draw Performed By: #### 5 0103 #### [facility] [address] [place] [address], [place] GFR/1.73 sq M predicted among blacks MDRD vol rate/area (S/P/Bld) mL/min/{1.73_m2} Normal >60 The [facility] Comment on above: Order Comment: No: D o not add to previous draw Performed By: #### 5 0103 #### [facility] [address] [place] [address], [place] GFR/1.73 sq M predicted among non-blacks MDRD vol rate/area (S/P/Bld) mL/min/{1.73_m2} Normal >60 The [facility] Comment on above: Order Comment: No: D o not add to previous draw Performed By: #### 5 0103 #### [facility] [address] [place] [address], [place] Glucose mass conc 157 mg/dL High 70-100 The [facility] Comment on above: Order Comment: No: D o not add to previous draw Performed By: #### 5 0103 #### [facility] [address] [place] [address], [facility] Potassium molar conc 3.6 mmol/L Normal 3.5-5.1 [facility] Comment on above: Order Comment: No: D o not add to previous draw Performed By: #### 5 0103 #### [facility] [address] [place] [address], [facility] Sodium molar conc 135 mmol/L Low 136-145 The [facility] Comment on above: Order Comment: No: D o not add to previous draw Performed By: #### 5 0103 #### [facility] [address] [place] [address], [facility] Urea nitrogen mass conc 15 mg/dL Normal 7-25 The [facility] Comment on above: Order Comment: No: D o not add to previous draw Performed By: #### 5 0103 #### [facility] [address] CBC COMPLETE BLOOD COUNTon 0 - Erythrocyte distribution width Ratio (RBC) 15.1 % High 11.5-15.0 The [facility] Comment on above: Order Comment: No: D o not add to previous draw Performed By: #### 5 0103 #### [facility] [address] [place] [address], [facility] Hematocrit Volume Fraction (Bld) 23.7 % Low 36.0-45.0 The [facility] Comment on above: Order Comment: No: D o not add to previous draw Performed By: #### 5 0103 #### [facility] [address] [place] [address], [facility] Hemoglobin mass conc (Bld) 8.0 g/dL Low 12.0-15.0 The [facility] Comment on above: Order Comment: No: D o not add to previous draw Performed By: #### 5 0103 #### [facility] [address] [place] [address], [facility] MCH Entitic mass (RBC) 27.6 pg Normal 27.0-33.0 The [facility] Comment on above: Order Comment: No: D o not add to previous draw Performed By: #### 5 0103 #### [facility] [address] MCHC mass conc (RBC) 33.8 g/dL Normal 32.0-35.0 The [facility] Comment on above: Order Comment: No: D o not add to previous draw Performed By: #### 5 0103 #### [facility] [address] MCV Entitic volume (RBC) 81.7 fL Low 82.0-98.0 The [facility] Comment on above: Order Comment: No: D o not add to previous draw Performed By: #### 5 0103 #### [facility] [address] Nucleated RBC/100 WBC Ratio (Bld) 0 % Normal 0-0 The [facility] Comment on above: Order Comment: No: D o not add to previous draw Performed By: #### 5 0103 #### [facility] [address] [place] [address], [facility] PLAT CNT 151 10*3/uL Normal 150-400 The [facility] Comment on above: Order Comment: No: D o not add to previous draw Performed By: #### 5 0103 #### [facility] [address] RBC #/vol (Bld) 2.90 10*6/uL Low 3.80-5.00 The [facility] Comment on above: Order Comment: No: D o not add to previous draw Performed By: #### 5 0103 #### [facility] [address] [place] [address], [facility] WBC #/vol (Bld) 10.78 10*3/uL High 4.00-10.60 The [facility] Comment on above: Order Comment: No: D o not add to previous draw Performed By: #### 5 0103 #### [facility] [address] [address], [facility] MAGNESIUM BLOODon 05-02-2018 Magnesium mass conc 1.6 mg/dL Low 1.9-2.7 The [facility] Comment on above: Order Comment: No: D o not add to previous draw Performed By: #### 5 0103 #### [facility] [address] [facility] [address], [facility] POC GLUCOSE LABon 05-02-2018 Glucose mass conc 172 mg/dL High 70-100 The [facility] Comment on above: Performed By: #### 5 0103 #### [facility] [address] [facility] [place] [address], [facility] Glucose mass conc 203 mg/dL High 70-100 The [facility] Comment on above: Performed By: #### 5 0103 #### [facility] [address] [facility] [address], [facility] Glucose mass conc 216 mg/dL High 70-100 The [facility] Comment on above: Performed By: #### 5 0103 #### [facility] [address] [facility] [place] [place] [address], [place] Glucose mass conc 160 mg/dL High 70-100 The [facility] Comment on above: Performed By: #### 5 0103 #### [facility] [address] [facility] [address], [place] Glucose mass conc 105 mg/dL High 70-100 The [facility] Comment on above: Performed By: #### 5 0103 #### [facility] [address] [facility] [place] [address], [facility] PORTABLE CHEST 1 VIEWon 04-15 PORTABLE CHEST 1 VIEW [facility] Department of Radiology [address] [place] [address] ======== Patient Name: PATO CORRAL : 1960 Sex: F Age: Race: White Pt. Location: [address] [place] [address] Patient Status: I Ordered Date: 05/02/2018 5:00:00 [...] unchanged. Electronically signed by:Antwon Groves. Transcribed by: [email or web address], User Resident: Electronically Signed by: ANTWON GROVES @ 05/02/2018 06:59 AM Normal The [facility] Comment on above: Order Comment: No: D o not add to previous draw BASIC METABOLIC PANELon 04-15 Calcium mass conc 8.0 mg/dL Low 8.6-10.3 The [facility] Comment on above: Order Comment: No: D o not add to previous draw Performed By: #### 5 0103 #### [facility] [address] [place] [address], [place] Chloride molar conc 103 mmol/L Normal 98-107 The [facility] Comment on above: Order Comment: No: D o not add to previous draw Performed By: #### 5 0103 #### [facility] [address] [place] [address], [place] CO2 molar conc 27 mmol/L Normal 21-31 The [facility] Comment on above: Order Comment: No: D o not add to previous draw Performed By: #### 5 0103 #### [facility] [address] [place] [address], [place] Creatinine mass conc 0.84 mg/dL Normal 0.60-1.20 The [facility] Comment on above: Order Comment: No: D o not add to previous draw Performed By: #### 5 3 #### [facility] [address] [place] [address], [place] GFR/1.73 sq M predicted among blacks MDRD vol rate/area (S/P/Bld) mL/min/{1.73_m2} Normal >60 The [facility] Comment on above: Order Comment: No: D o not add to previous draw Performed By: #### 5 3 #### [facility] [address] [place] [address], [place] GFR/1.73 sq M predicted among non-blacks MDRD vol rate/area (S/P/Bld) mL/min/{1.73_m2} Normal >60 The [facility] Comment on above: Order Comment: No: D o not add to previous draw Performed By: #### 5 0103 #### [facility] [address] [place] [address], [place] Glucose mass conc 159 mg/dL High 70-100 The [facility] Comment on above: Order Comment: No: D o not add to previous draw Performed By: #### 5 0103 #### [facility] [address] [place] [address], [facility] Potassium molar conc 4.2 mmol/L Normal 3.5-5.1 The [facility] Comment on above: Order Comment: No: D o not add to previous draw Performed By: #### 5 0103 #### [facility] [address] [place] [address], [facility] Sodium molar conc 135 mmol/L Low 136-145 The [facility] Comment on above: Order Comment: No: D o not add to previous draw Performed By: #### 5 0103 #### [facility] [address] [place] [address], [facility] Urea nitrogen mass conc 18 mg/dL Normal 7-25 The [facility] Comment on above: Order Comment: No: D o not add to previous draw Performed By: #### 5 3 #### [facility] [address] [place] [address], [facility] CBC COMPLETE BLOOD COUNTon 0 - Erythrocyte distribution width Ratio (RBC) 15.4 % High 11.5-15.0 The [facility] Comment on above: Order Comment: No: D o not add to previous draw Performed By: #### 5 0103 #### [facility] [address] [place] [address], [facility] Hematocrit Volume Fraction (Bld) 21.5 % Low 36.0-45.0 The [facility] Comment on above: Order Comment: No: D o not add to previous draw Performed By: #### 5 0103 #### [facility] [address] [place] [address], [facility] Hemoglobin mass conc (Bld) 7.1 g/dL Low 12.0-15.0 The [facility] Comment on above: Order Comment: No: D o not add to previous draw Performed By: #### 5 0103 #### [facility] [address] [place] [address], [facility] MCH Entitic mass (RBC) 27.7 pg Normal 27.0-33.0 The [facility] Comment on above: Order Comment: No: D o not add to previous draw Performed By: #### 5 0103 #### [facility] [address] MCHC mass conc (RBC) 33.0 g/dL Normal 32.0-35.0 The [facility] Comment on above: Order Comment: No: D o not add to previous draw Performed By: #### 5 0103 #### [facility] [address] MCV Entitic volume (RBC) 84.0 fL Normal 82.0-98.0 The [facility] Comment on above: Order Comment: No: D o not add to previous draw Performed By: #### 5 0103 #### [facility] [address] [facility] [address] Nucleated RBC/100 WBC Ratio (Bld) 0 % Normal 0-0 The [facility] Comment on above: Order Comment: No: D o not add to previous draw Performed By: #### 5 0103 #### [facility] [address] [facility] [place] [address], [facility] PLAT CNT 102 10*3/uL Low 150-400 The [facility] Comment on above: Order Comment: No: D o not add to previous draw Performed By: #### 5 0103 #### [facility] [address] [facility] [place] [address], [facility] RBC #/vol (Bld) 2.56 10*6/uL Low 3.80-5.00 [facility] Comment on above: Order Comment: No: D o not add to previous draw Performed By: #### 5 0103 #### [facility] [address] [place] [address], [facility] WBC #/vol (Bld) 11.57 10*3/uL High 4.00-10.60 [facility] Comment on above: Order Comment: No: D o not add to previous draw Performed By: #### 5 0103 #### [facility] [address] [place] [address], [facility] HEMOGLOBINon 05-01-2018 Hemoglobin mass conc (Bld) 7.3 g/dL Low 12.0-15.0 [facility] Comment on above: Order Comment: No: D o not add to previous draw Performed By: #### 5 0103 #### [facility] [address] [place] [address], [facility] POC GLUCOSE LABon 05-01-2018 Glucose mass conc 253 mg/dL High 70-100 [facility] Comment on above: Performed By: #### 5 0103 #### [facility] [address] [facility] [place] [address], [place] Glucose mass conc 180 mg/dL High 70-100 [facility] Comment on above: Performed By: #### 5 0103 #### [facility] [address] [facility] [place] [address], [facility] Glucose mass conc 238 mg/dL High 70-100 [facility] Comment on above: Performed By: #### 5 0103 #### [facility] [address] [place] [address], [place] Glucose mass conc 161 mg/dL High 70-100 [facility] Comment on above: Performed By: #### 5 0103 #### [facility] [address] [place] [address], [facility] PORTABLE CHEST 1 VIEWon 04-15 PORTABLE CHEST 1 VIEW [facility] Department of Radiology [address] [place] [id number] ======== Patient Name: PATO CORRAL : 1960 Sex: F Age: Race: White Pt. Location: [id number] Patient Status: I Ordered Date: 05/01/2018 5:00:00 [...] findings. Electronically signed by:Jerry Charles. Transcribed by: [email or web address], User Resident: MACARIO PATEL Electronically Signed by: JERRY CHARLES @ 05/01/2018 01:37 PM I personally read this/these film(s) with this resident Normal [facility] Comment on above: Order Comment: No: D o not add to previous draw RBC'S 1 UNITon 05-01-2018 CROSSMATCH INTERP 1 COMP Normal [facility] Comment on above: Performed By: #### 5 0103 #### [facility] [address] [place] [address], [facility] Protein mass conc 685 g/dL Normal [facility] Comment on above: Performed By: #### 5 0103 #### [facility] [address] [place] [address], [facility] Protein mass conc PT Normal [facility] Comment on above: Result Comment: Resu lt changed by IF on 05/01/2018 10:28. The previous value was XM. Result changed by IF on 05/02/2018 00:30. The previous value was IS. Performed By: #### 5 0103 #### [facility] [address] [place] [address], [facility] UNIT ABO 1 O Normal [facility] Comment on above: Performed By: #### 5 0103 #### [facility] [address] [place] [address], [facility] UNIT ID 1 [id number] Normal [facility] Comment on above: Performed By: #### 5 0103 #### [facility] [address] [facility] [place] [address], [facility] UNIT RH 1 Positive Normal [facility] Comment on above: Performed By: #### 5 0103 #### [facility] [address] [place] [address], [place] TYPE AND SCREENon 05-01-2018 ABO INTERPRETATION O Normal [facility] Comment on above: Performed By: #### 5 0103 #### [facility] [address] [place] [address], [place] RH INTERPRETATION Positive Normal [facility] Comment on above: Performed By: #### 5 0103 #### [facility] [address] [place] [address], [facility] BASIC METABOLIC PANELon - Calcium mass conc 8.2 mg/dL Low 8.6-10.3 [facility] Comment on above: Order Comment: No: D o not add to previous draw Performed By: #### 5 0103 #### [facility] [address] [place] [address], [place] Chloride molar conc 110 mmol/L High 98-107 [facility] Comment on above: Order Comment: No: D o not add to previous draw Performed By: #### 5 0103 #### [facility] [address] [place] [address], [place] CO2 molar conc 26 mmol/L Normal 21-31 [facility] Comment on above: Order Comment: No: D o not add to previous draw Performed By: #### 5 0103 #### [facility] [address] [place] [address], [place] Creatinine mass conc 0.76 mg/dL Normal 0.60-1.20 [facility] Comment on above: Order Comment: No: D o not add to previous draw Performed By: #### 5 0103 #### [facility] [address] [place] [address], [place] GFR/1.73 sq M predicted among blacks MDRD vol rate/area (S/P/Bld) mL/min/{1.73_m2} Normal >60 [facility] Comment on above: Order Comment: No: D o not add to previous draw Performed By: #### 5 0103 #### [facility] [address] [place] [address], [place] GFR/1.73 sq M predicted among non-blacks MDRD vol rate/area (S/P/Bld) mL/min/{1.73_m2} Normal >60 [facility] Comment on above: Order Comment: No: D o not add to previous draw Performed By: #### 5 0103 #### [facility] [address] [place] [address], [facility] Glucose mass conc 108 mg/dL High 70-100 [facility] Comment on above: Order Comment: No: D o not add to previous draw Performed By: #### 5 0103 #### [facility] [address] [place] [address], [facility] Potassium molar conc 4.5 mmol/L Normal 3.5-5.1 [facility] Comment on above: Order Comment: No: D o not add to previous draw Performed By: #### 5 0103 #### [facility] [address] [place] [address], [facility] Sodium molar conc 140 mmol/L Normal 136-145 [facility] Comment on above: Order Comment: No: D o not add to previous draw Performed By: #### 5 0103 #### [facility] [address] [place] [address], [facility] Urea nitrogen mass conc 16 mg/dL Normal 7-25 [facility] Comment on above: Order Comment: No: D o not add to previous draw Performed By: #### 5 0103 #### [facility] [address] [place] [address], [facility] CBC COMPLETE BLOOD COUNTon 0 2-16 Erythrocyte distribution width Ratio (RBC) 15.8 % High 11.5-15.0 [facility] Comment on above: Order Comment: No: D o not add to previous draw Performed By: #### 5 0103 #### [facility] [address] [place] [address], [facility] Hematocrit Volume Fraction (Bld) 24.5 % Low 36.0-45.0 [facility] Comment on above: Order Comment: No: D o not add to previous draw Performed By: #### 5 0103 #### [facility] [address] [place] [address], [facility] Hemoglobin mass conc (Bld) 8.0 g/dL Low 12.0-15.0 [facility] Comment on above: Order Comment: No: D o not add to previous draw Performed By: #### 5 0103 #### [facility] [address] [facility] [place] [address], [facility] IMM PLATELET FRAC 1.6 % Normal 0.8-6.3 [facility] Comment on above: Order Comment: No: D o not add to previous draw Performed By: #### 5 0103 #### [facility] [address] [place] [address], [facility] MCH Entitic mass (RBC) 27.8 pg Normal 27.0-33.0 [facility] Comment on above: Order Comment: No: D o not add to previous draw Performed By: #### 5 0103 #### [facility] [address] [facility] [place] [address], [facility] MCHC mass conc (RBC) 32.7 g/dL Normal 32.0-35.0 [facility] Comment on above: Order Comment: No: D o not add to previous draw Performed By: #### 5 0103 #### [facility] [address] [facility] [place] [address], [facility] MCV Entitic volume (RBC) 85.1 fL Normal 82.0-98.0 [facility] Comment on above: Order Comment: No: D o not add to previous draw Performed By: #### 5 0103 #### [facility] [address] [facility] [place] [address], [facility] Nucleated RBC/100 WBC Ratio (Bld) 0 % Normal 0-0 [facility] Comment on above: Order Comment: No: D o not add to previous draw Performed By: #### 5 0103 #### [facility] [address] [place] [address], [facility] PLAT CNT 98 10*3/uL Low 150-400 [facility] Comment on above: Order Comment: No: D o not add to previous draw Performed By: #### 5 0103 #### [facility] [address] [place] [address], [facility] RBC #/vol (Bld) 2.88 10*6/uL Low 3.80-5.00 [facility] Comment on above: Order Comment: No: D o not add to previous draw Performed By: #### 5 0103 #### [facility] [address] [place] [address], [place] WBC #/vol (Bld) 14.45 10*3/uL High 4.00-10.60 [facility] Comment on above: Order Comment: No: D o not add to previous draw Performed By: #### 5 0103 #### [facility] [address] [place] [address], [place] MAGNESIUM BLOODon 04-30-2018 Magnesium mass conc 2.2 mg/dL Normal 1.9-2.7 [facility] Comment on above: Performed By: #### 5 3 #### [facility] [address] [place] [address], [place] POC GLUCOSE LABon 04-30-2018 Glucose mass conc 135 mg/dL High 70-100 [facility] Comment on above: Performed By: #### 102 #### [facility] [address] [place] [address], [place] Glucose mass conc 201 mg/dL High 70-100 [facility] Comment on above: Performed By: #### 3 #### [facility] [address] [place] [address], [place] Glucose mass conc 224 mg/dL High 70-100 [facility] Comment on above: Performed By: #### 5 3 #### [facility] [address] [place] [address], [place] Glucose mass conc 134 mg/dL High 70-100 [facility] Comment on above: Performed By: #### 5 0103 #### [facility] [address] [place] [address], [place] Glucose mass conc 113 mg/dL High 70-100 [facility] Comment on above: Performed By: #### 5 0103 #### [facility] [address] [place] [address], [place] Glucose mass conc 96 mg/dL Normal 70-100 [facility] Comment on above: Performed By: #### 5 0103 #### [facility] [address] [place] [address], [place] Glucose mass conc 111 mg/dL High 70-100 [facility] Comment on above: Performed By: #### 5 0103 #### [facility] [address] [place] [address], [place] Glucose mass conc 114 mg/dL High 70-100 [facility] Comment on above: Performed By: #### 5 0103 #### [facility] [address] [place] [address], [place] Glucose mass conc 137 mg/dL High 70-100 [facility] Comment on above: Performed By: #### 5 0103 #### [facility] [address] [place] [address], [place] PORTABLE CHEST 1 VIEWon 04-15 PORTABLE CHEST 1 VIEW [facility] Department of Radiology [address] [place] [id number] ======== Patient Name: PATO CORRAL : 1960 Sex: F Age: Race: White Pt. Location: [id number] Patient Status: I Ordered Date: 04/30/2018 5:00:00 [...] are intact. Interval removal of right-sided IJ Pitts-Jen catheter. No significant change in positioning of [...] pulmonary vasculature. * Interval removal of right-sided Pitts-Jen catheter from prior study. Approved by:Rudy Quiñones on 04/30/2018 1:14 PM EST. I, Jerry Charles, have reviewed the images and report and concur with these findings. Electronically signed by:Jerry Charles. Transcribed by: [email or web address], User Resident: RUDY [email or web address] Electronically Signed by: JERRY CHARLES @ 04/30/2018 01:32 PM I personally read this/these film(s) with this resident Normal [facility] Comment on above: Order Comment: No: D o not add to previous draw ARTERIAL BLOOD GAS WITH ICAo n 0215-2019 BASE EXCESS -1 mmol/L Normal -2-2 [facility] Comment on above: Performed By: #### 5 0103 #### [facility] [address] [employer] [place] Normal [facility] Comment on above: Performed By: #### 5 0103 #### [facility] [address] [place] [address], [facility] HCO3 molar conc (Bld) 25 mmol/L Normal 23-27 [facility] Comment on above: Performed By: #### 5 3 #### [facility] [address] [facility]. [address] IONIZED CALCIUM 1.23 mmol/L Normal 1.13-1.32 [facility] Comment on above: Performed By: #### 5 3 #### [facility] [address] [facility]. [address] LPM 4.0 LPM Normal 0.5-20.0 [facility] Comment on above: Performed By: #### 5 3 #### [facility] [address] [facility]. [address] Oxygen ppres (Bld) 85 mm[Hg] Normal 75-100 [facility] Comment on above: Performed By: #### 5 3 #### [facility] [address] [facility]. [address] Oxygen saturation in Blood 96.2 % Normal 94.0-97.0 [facility] Comment on above: Performed By: #### 5 3 #### [facility] [address] [facility] [place] [address], [facility] PCO2 48 mmHg High 35-45 [facility] Comment on above: Performed By: #### 5 3 #### [facility] [address] pH (Bld) 7.33 [pH] Low 7.35-7.45 [facility] Comment on above: Performed By: #### 5 0103 #### [facility] [address] BASE EXCESS -2 mmol/L Normal -2-2 [facility] Comment on above: Performed By: #### 5 0103 #### [facility] [address] [facility]. [address] DELIVERY SYSTEMS MV Normal [facility] Comment on above: Performed By: #### 5 0103 #### [facility] [address] [facility] [place] [address], [facility] FIO2 40 % Normal 21-100 [facility] Comment on above: Performed By: #### 3 #### [facility] [address] [facility]. [address] HCO3 molar conc (Bld) 24 mmol/L Normal 23-27 [facility] Comment on above: Performed By: #### 5 3 #### [facility] [address] [facility]. [address] IONIZED CALCIUM 1.18 mmol/L Normal 1.13-1.32 [facility] Comment on above: Performed By: #### 5 3 #### [facility] [address] [facility]. [address] MIN VOLUME 7.6 Normal [facility] Comment on above: Performed By: #### 3 #### [facility] [address] [facility] [place] [address], [facility] MODALITY SPONT Normal [facility] Comment on above: Performed By: #### 3 #### [facility] [address] [facility]. [address] Oxygen ppres (Bld) 95 mm[Hg] Normal 75-100 [facility] Comment on above: Performed By: #### 5 0103 #### [facility] [address] [place] [address], [place] Oxygen saturation in Blood 95.2 % Normal 94.0-97.0 [facility] Comment on above: Performed By: #### 5 0103 #### [facility] [address] [place] [address], [place] PCO2 44 mmHg Normal 35-45 [facility] Comment on above: Performed By: #### 5 0103 #### [facility] [address] [place] [address], [place] PEEP 8.0 CMH20 Normal [facility] Comment on above: Performed By: #### 5 0103 #### [facility] [address] [place] [address], [place] pH (Bld) 7.34 [pH] Low 7.35-7.45 [facility] Comment on above: Performed By: #### 5 0103 #### [facility] [address] [place] [address], [place] PRESSURE SUPPORT 10 Normal [facility] Comment on above: Performed By: #### 5 3 #### [facility] [address] [place] [address], [place] BASIC METABOLIC PANELon - Calcium mass conc 7.8 mg/dL Low 8.6-10.3 [facility] Comment on above: Order Comment: No: D o not add to previous draw Performed By: #### 5 0103 #### [facility] [address] [place] [address], [place] Chloride molar conc 118 mmol/L High 98-107 [facility] Comment on above: Order Comment: No: D o not add to previous draw Performed By: #### 5 3 #### [facility] [address] [place] [address], [place] CO2 molar conc 26 mmol/L Normal 21-31 [facility] Comment on above: Order Comment: No: D o not add to previous draw Performed By: #### 5 0103 #### [facility] [address] [place] [address], [facility] Creatinine mass conc 0.92 mg/dL Normal 0.60-1.20 [facility] Comment on above: Order Comment: No: D o not add to previous draw Performed By: #### 5 0103 #### [facility] [address] [place] [address], [facility] GFR/1.73 sq M predicted among blacks MDRD vol rate/area (S/P/Bld) mL/min/{1.73_m2} Normal >60 [facility] Comment on above: Order Comment: No: D o not add to previous draw Performed By: #### 5 0103 #### [facility] [address] [place] [address], [facility] GFR/1.73 sq M predicted among non-blacks MDRD vol rate/area (S/P/Bld) mL/min/{1.73_m2} Normal >60 [facility] Comment on above: Order Comment: No: D o not add to previous draw Performed By: #### 5 0103 #### [facility] [address] [place] [address], [facility] Glucose mass conc 101 mg/dL High 70-100 [facility] Comment on above: Order Comment: No: D o not add to previous draw Performed By: #### 5 0103 #### [facility] [address] [place] [address], [place] Potassium molar conc 4.1 mmol/L Normal 3.5-5.1 [facility] Comment on above: Order Comment: No: D o not add to previous draw Performed By: #### 5 0103 #### [facility] [address] [place] [address], [place] Sodium molar conc 149 mmol/L High 136-145 [facility] Comment on above: Order Comment: No: D o not add to previous draw Performed By: #### 5 0103 #### [facility] [address] [place] [address], [facility] Urea nitrogen mass conc 19 mg/dL Normal 7-25 [facility] Comment on above: Order Comment: No: D o not add to previous draw Performed By: #### 5 0103 #### [facility] [address] [place] [address], [facility] CARDIAC MAGNESIUM BLOODon Magnesium mass conc 2.0 mg/dL Normal 1.9-2.7 [facility] Comment on above: Performed By: #### 5 0103 #### [facility] [address] [facility] [place] [place] [address] CBC COMPLETE BLOOD COUNTon 0 04-29-2018 Erythrocyte distribution width Ratio (RBC) 15.6 % High 11.5-15.0 [facility] Comment on above: Order Comment: No: D o not add to previous draw Performed By: #### 5 0103 #### [facility] [address] [facility] [place] [address], [facility] Hematocrit Volume Fraction (Bld) 23.3 % Low 36.0-45.0 [facility] Comment on above: Order Comment: No: D o not add to previous draw Performed By: #### 5 0103 #### [facility] [address] [facility] [address], [facility] Hemoglobin mass conc (Bld) 7.9 g/dL Low 12.0-15.0 [facility] Comment on above: Order Comment: No: D o not add to previous draw Performed By: #### 5 0103 #### [facility] [address] [place] [address], [facility] MCH Entitic mass (RBC) 27.4 pg Normal 27.0-33.0 [facility] Comment on above: Order Comment: No: D o not add to previous draw Performed By: #### 5 0103 #### [facility] [address] MCHC mass conc (RBC) 33.9 g/dL Normal 32.0-35.0 [facility] Comment on above: Order Comment: No: D o not add to previous draw Performed By: #### 5 0103 #### [facility] [address] [facility] [address] MCV Entitic volume (RBC) 80.9 fL Low 82.0-98.0 [facility] Comment on above: Order Comment: No: D o not add to previous draw Performed By: #### 5 0103 #### [facility] [address] Nucleated RBC/100 WBC Ratio (Bld) 0 % Normal 0-0 [facility] Comment on above: Order Comment: No: D o not add to previous draw Performed By: #### 5 0103 #### [facility] [address] [facility] [place] [address], [facility] PLAT CNT 126 10*3/uL Low 150-400 [facility] Comment on above: Order Comment: No: D o not add to previous draw Performed By: #### 5 0103 #### [facility] [address] [facility] [place] [address], [facility] RBC #/vol (Bld) 2.88 10*6/uL Low 3.80-5.00 [facility] Comment on above: Order Comment: No: D o not add to previous draw Performed By: #### 5 0103 #### [facility] [address] [facility] [place] [address], [facility] WBC #/vol (Bld) 10.49 10*3/uL Normal 4.00-10.60 [facility] Comment on above: Order Comment: No: D o not add to previous draw Performed By: #### 5 0103 #### [facility] [address] [place] [address], [facility] COOXIMETRYon 04-29-2018 COHB 2 % Normal [facility] Comment on above: Performed By: #### 5 0103 #### [facility] [address] [place] [address], [place] METHB 1 % Normal [facility] Comment on above: Performed By: #### 5 0103 #### [facility] [address] [place] [address], [facility] Oxygen saturation in Blood 58.9 % Low 60.0-80.0 [facility] Comment on above: Performed By: #### 5 0103 #### [facility] [address] [place] [address], [facility] THB 7.9 g/dL Low 12.0-15.0 [facility] Comment on above: Performed By: #### 5 0103 #### [facility] [address] [place] [address], [facility] HEMOGLOBINon 04-29-2018 Hemoglobin mass conc (Bld) 8.8 g/dL Low 12.0-15.0 [facility] Comment on above: Order Comment: No: D o not add to previous draw Performed By: #### 5 0103 #### [facility] [address] [place] [address], [facility] MAGNESIUM BLOODon 04-29-2018 Magnesium mass conc 2.3 mg/dL Normal 1.9-2.7 [facility] Comment on above: Performed By: #### 5 0103 #### [facility] [address] [place] [address], [facility] Operative Reporton 9 Operative Report MR#: [id number] I [facility] Pt. Name: Pato Corral Walton Room #: [id number] Discharge Date: Birthdate: 1960 OPERATIVE REPORT DATE [...] consent was obtained. COMPLICATIONS: None. DRAINS: Four 19-[place]gr[place] Jluis drains with 1 in the left [...] including radial arterial line, right internal jugular Pitts-Jen catheter, and Strickland catheter were placed. General [...] Hemostasis was checked and was secured. Four 19-[place] Jluis drains were then brought into the field, 1 placed in the left pleural space, 1 in the right pleural space, and 2 in the mediastinum, and they were brought out through separate stab incisions and secured to the chest wall with silk sutures. The sternum was then closed with combination of interrupted and xorhia-mm-ilovk stainless steel wires. The soft tissues were [...] then checked and was secured, and a 10-[place] Jluis drain was then placed in the [...] Ruvalcaba MD Date Trans: 04/29/2018 05:36 A/emily [id number] cc: Gianfranco Lau D.O. [address] [place] [address] Normal [facility] POC GLUCOSE LABon 04-29-2018 Glucose mass conc 129 mg/dL High 70-100 [facility] Comment on above: Performed By: #### 5 0103 #### [facility] [address] [place] [address], [place] Glucose mass conc 190 mg/dL High 70-100 [facility] Comment on above: Performed By: #### 5 0103 #### [facility] [address] [place] [address], [place] Glucose mass conc 107 mg/dL High 70-100 [facility] Comment on above: Performed By: #### 5 0103 #### [facility] [address] [place] [address], [place] Glucose mass conc 94 mg/dL Normal 70-100 [facility] Comment on above: Performed By: #### 5 0103 #### [facility] [address] [place] [address], [place] Glucose mass conc 143 mg/dL High 70-100 [facility] Comment on above: Performed By: #### 5 0103 #### [facility] [address] [place] [address], [place] Glucose mass conc 136 mg/dL High 70-100 [facility] Comment on above: Performed By: #### 5 0103 #### [facility] [address] [place] [address], [place] Glucose mass conc 182 mg/dL High 70-100 [facility] Comment on above: Performed By: #### 5 0103 #### [facility] [address] [place] [address], [place] Glucose mass conc 97 mg/dL Normal 70-100 [facility] Comment on above: Performed By: #### 5 0103 #### [facility] [address] [place] [address], [place] Glucose mass conc 110 mg/dL High 70-100 [facility] Comment on above: Performed By: #### 5 0103 #### [facility] [address] [place] [address], [place] Glucose mass conc 105 mg/dL High 70-100 [facility] Comment on above: Performed By: #### 5 0103 #### [facility] [address] [place] [address], [facility] Glucose mass conc 122 mg/dL High 70-100 [facility] Comment on above: Performed By: #### 5 0103 #### [facility] [address] [place] [address], [place] Glucose mass conc 141 mg/dL High 70-100 [facility] Comment on above: Performed By: #### 5 0103 #### [facility] [address] [place] [address], [place] Glucose mass conc 165 mg/dL High 70-100 [facility] Comment on above: Performed By: #### 5 0103 #### [facility] [address] [facility] [place] [place] [address], [facility] Glucose mass conc 189 mg/dL High 70-100 [facility] Comment on above: Performed By: #### 5 0103 #### [facility] [address] [place] [address], [place] Glucose mass conc 173 mg/dL High 70-100 [facility] Comment on above: Performed By: #### 5 0103 #### [facility] [address] [facility] [address], [facility] PORTABLE CHEST 1 VIEWon 04-15 PORTABLE CHEST 1 VIEW [facility] Department of Radiology [address] [place] [address] ======== Patient Name: PATO CORRAL : 1960 Sex: F Age: Race: White Pt. Location: [id number] Patient Status: I Ordered Date: 04/29/2018 5:00:00 [...] Stable positioning of bilateral nasopharynx. Right-sided IJ Pitts-Jen with the tip in the main pulmonary [...] findings. Electronically signed by:Jerry Charles. Transcribed by: [email or web address], User Resident: [email or web address] Electronically Signed by: JERRY CHARLES @ 04/29/2018 03:04 PM I personally read this/these film(s) with this resident Normal [facility] Comment on above: Order Comment: No: D o not add to previous draw POTASSIUM BLOODon 04-29-2018 Potassium molar conc 3.9 mmol/L Normal 3.5-5.1 [facility] Comment on above: Order Comment: No: D o not add to previous draw Performed By: #### 5 0103 #### [facility] [address] PROTHROMBIN TIMEon 9 INR Coag RelTime (PPP) 1.30 {INR} High 0.91-1.16 [facility] Comment on above: Order Comment: No: [...] 1995;108:[id number]. Performed By: #### 5 0103 #### [facility] [address] Prothrombin time (PT) Coag time (PPP) 16.2 s High 12.3-14.8 [facility] Comment on above: Order Comment: No: D o not add to previous draw Result Comment: ALL RESULTS MUST BE INTERPRETED WITH RESPECT TO BLOOD DRAWING ARTIFACT OR DILUTION ERROR OF ANTICOAGULANT AT THE TIME OF SAMPLING. Performed By: #### 5 0103 #### [facility] [address] [facility] [address] ACTIVATED CLOTTING TIMEon ACTIVATED CLOTTING TIME 121 sec Normal 82-152 [facility] Comment on above: Performed By: #### 3 1018 #### [facility] [address] [place] [address], [place] ACTIVATED CLOTTING TIME 418 sec High 82-152 [facility] Comment on above: Performed By: #### 8 5499 #### [facility] [address] [place] [address], [place] ACTIVATED CLOTTING TIME 455 sec High 82-152 [facility] Comment on above: Performed By: #### 8 5499 #### [facility] [address] [place] [address], [place] ACTIVATED CLOTTING TIME 467 sec High 82-152 [facility] Comment on above: Performed By: #### 3 1488 #### [facility] [address] [place] [address], [place] ACTIVATED CLOTTING TIME 485 sec High 82-152 [facility] Comment on above: Performed By: #### 3 1488 #### [facility] [address] [place] [address], [place] ACTIVATED CLOTTING TIME 424 sec High 82-152 [facility] Comment on above: Performed By: #### 3 1488 #### [facility] [address] [place] [address], [place] ACTIVATED CLOTTING TIME 508 sec High 82-152 [facility] Comment on above: Performed By: #### 3 1488 #### [facility] [address] [place] [address], [place] ACTIVATED CLOTTING TIME 537 sec High 82-152 [facility] Comment on above: Performed By: #### 8 5123 #### [facility] [address] [place] [address], [place] ACTIVATED CLOTTING TIME 418 sec High 82-152 [facility] Comment on above: Performed By: #### 8 5123 #### [facility] [address] [place] [address], [facility] ACTIVATED CLOTTING TIME 537 sec High 82-152 [facility] Comment on above: Performed By: #### 8 5123 #### [facility] [address] [place] [address], [place] ACTIVATED CLOTTING TIME 412 sec High 82-152 [facility] Comment on above: Performed By: #### 8 5123 #### [facility] [address] [place] [address], [facility] ACTIVATED CLOTTING TIME 473 sec High 82-152 [facility] Comment on above: Performed By: #### 8 5123 #### [facility] [address] [place] [address], [facility] ACTIVATED CLOTTING TIME 437 sec High 82-152 [facility] Comment on above: Performed By: #### 8 5123 #### [facility] [address] [place] [address], [facility] ACTIVATED CLOTTING TIME 126 sec Normal 82-152 [facility] Comment on above: Performed By: #### 3 1488 #### [facility] [address] [place] [address], [facility] APTTon 04-28-2018 aPTT Coag time (Bld) 36.9 s High 25.0-35.0 [facility] Comment on above: Result Comment: ALL RESULTS [...] PURPOSE. Performed By: #### 5 0103 #### [facility] [address] [place] [address], [facility] ARTERIAL BLOOD GAS W/COOXon 04-28-2018 BASE EXCESS -6 mmol/L Low -2-2 [facility] Comment on above: Performed By: #### 3 1018 #### [facility] [address] [place] [address], [facility] COHB 2 % High 0-1 [facility] Comment on above: Performed By: #### 3 1018 #### [facility] [address] [place] [address], [facility] DELIVERY SYSTEM[employer] VENT Normal [facility] Comment on above: Performed By: #### 3 1018 #### [facility] [address] [place] [address], [facility] FIO2 50 % Normal 21-100 [facility] Comment on above: Performed By: #### 3 1018 #### [facility] [address] [place] [address], [facility] HCO3 molar conc (Bld) 21 mmol/L Low 23-27 [facility] Comment on above: Performed By: #### 3 1018 #### [facility] [address] [place] [address], [facility] METHB 0.6 % Normal 0.0-1.5 [facility] Comment on above: Performed By: #### 3 1018 #### [facility] [address] [place] [address], [facility] MIN VOLUME 7.0 Normal [facility] Comment on above: Performed By: #### 3 1018 #### [facility] [address] [place] [address], [facility] MODALITY SIMV Normal [facility] Comment on above: Performed By: #### 3 1018 #### [facility] [address] [place] [address], [facility] Oxygen ppres (Bld) 82 mm[Hg] Normal 75-100 [facility] Comment on above: Performed By: #### 3 1018 #### [facility] [address] [place] [address], [facility] Oxygen saturation in Blood 93.6 % Low 94.0-97.0 [facility] Comment on above: Performed By: #### 3 1018 #### [facility] [address] [place] [address], [facility] PCO2 48 mmHg High 35-45 [facility] Comment on above: Performed By: #### 3 1018 #### [facility] [address] [facility] [place] [address], [facility] PEEP 8.0 CMH20 Normal [facility] Comment on above: Performed By: #### 3 1018 #### [facility] [address] [facility] [address], [facility] pH (Bld) 7.25 [pH] Low 7.35-7.45 [facility] Comment on above: Performed By: #### 3 1018 #### [facility] [address] [facility] [place] [address], [facility] PRESSURE SUPPORT 5 Normal [facility] Comment on above: Performed By: #### 3 1018 #### [facility] [address] [facility]. [address] THB 12.0 g/dL Normal 12.0-15.0 [facility] Comment on above: Performed By: #### 3 1018 #### [facility] [address] [facility] [place], [place] [id number] [place] [address] TIDAL VOLUME (VT) CC 500 Normal [facility] Comment on above: Performed By: #### 3 1018 #### [facility] [address] [facility] [place] [address], [facility] ARTERIAL BLOOD GAS WITH ICAo n 04-28-2018 BASE EXCESS -2 mmol/L Normal -2-2 [facility] Comment on above: Performed By: #### 5 0103 #### [facility] [address] [facility] [place] [id number], [facility] [employer] MV Normal [facility] Comment on above: Performed By: #### 5 0103 #### [facility] [address] [place] [address], [facility] FIO2 40 % Normal 21-100 [facility] Comment on above: Performed By: #### 5 0103 #### [facility] [address] [place] [address], [facility] HCO3 molar conc (Bld) 24 mmol/L Normal 23-27 [facility] Comment on above: Performed By: #### 5 0103 #### [facility] [address] [place] [address], [facility] IONIZED CALCIUM 1.14 mmol/L Normal 1.13-1.32 [facility] Comment on above: Performed By: #### 5 0103 #### [facility] [address] [place] [address], [facility] MIN VOLUME 7.1 Normal [facility] Comment on above: Performed By: #### 5 0103 #### [facility] [address] [place] [address], [facility] MODALITY SIMV Normal [facility] Comment on above: Performed By: #### 5 0103 #### [facility] [address] [place] [address], [facility] Oxygen ppres (Bld) 87 mm[Hg] Normal 75-100 [facility] Comment on above: Performed By: #### 5 0103 #### [facility] [address] [place] [address], [facility] Oxygen saturation in Blood 94.8 % Normal 94.0-97.0 [facility] Comment on above: Performed By: #### 5 0103 #### [facility] [address] [place] [address], [facility] PCO2 44 mmHg Normal 35-45 [facility] Comment on above: Performed By: #### 5 3 #### [facility] [address] [place] [address], [place] PEEP 8.0 CMH20 Normal [facility] Comment on above: Performed By: #### 5 3 #### [facility] [address] [place] [address], [place] PF RATIO 218 mmHg Normal 50-400 [facility] Comment on above: Performed By: #### 5 3 #### [facility] [address] [place] [address], [place] pH (Bld) 7.34 [pH] Low 7.35-7.45 [facility] Comment on above: Performed By: #### 102 #### [facility] [address] [place] [address], [place] PRESSURE SUPPORT 5 Normal [facility] Comment on above: Performed By: #### 3 #### [facility] [address] [place] [address], [place] TIDAL VOLUME (VT) CC 500 Normal [facility] Comment on above: Performed By: #### 3 #### [facility] [address] [place] [address], [place] BASE EXCESS -4 mmol/L Low -2-2 [facility] Comment on above: Order Comment: No: D o not add to previous draw Performed By: #### 3 #### [facility] [address] [place] [address], [place] DEL[employer]ERY SYSTEMS MV Normal [facility] Comment on above: Order Comment: No: D o not add to previous draw Performed By: #### 5 3 #### [facility] [address] [place] [address], [place] FIO2 50 % Normal 21-100 [facility] Comment on above: Order Comment: No: D o not add to previous draw Performed By: #### 5 0103 #### [facility] [address] [place] [address], [place] HCO3 molar conc (Bld) 22 mmol/L Low 23-27 [facility] Comment on above: Order Comment: No: D o not add to previous draw Performed By: #### 5 0103 #### [facility] [address] [place] [address], [place] IONIZED CALCIUM 1.15 mmol/L Normal 1.13-1.32 [facility] Comment on above: Order Comment: No: D o not add to previous draw Performed By: #### 5 0103 #### [facility] [address] [place] [address], [place] MIN VOLUME 7.1 Normal [facility] Comment on above: Order Comment: No: D o not add to previous draw Performed By: #### 5 0103 #### [facility] [address] [place] [address], [place] MODALITY SIMV Normal [facility] Comment on above: Order Comment: No: D o not add to previous draw Performed By: #### 5 0103 #### [facility] [address] [place] [address], [place] Oxygen ppres (Bld) 107 mm[Hg] Critically high 75-100 [facility] Comment on above: Order Comment: No: D o not add to previous draw Performed By: #### 5 0103 #### [facility] [address] [place] [address], [place] Oxygen saturation in Blood 94.9 % Normal 94.0-97.0 [facility] Comment on above: Order Comment: No: D o not add to previous draw Performed By: #### 5 3 #### [facility] [address] [place] [address], [place] PCO2 42 mmHg Normal 35-45 [facility] Comment on above: Order Comment: No: D o not add to previous draw Performed By: #### 5 0103 #### [facility] [address] [place] [address], [facility] PEEP 8.0 CMH20 Normal [facility] Comment on above: Order Comment: No: D o not add to previous draw Performed By: #### 5 0103 #### [facility] [address] [place] [address], [facility] pH (Bld) 7.33 [pH] Low 7.35-7.45 [facility] Comment on above: Order Comment: No: D o not add to previous draw Performed By: #### 5 0103 #### [facility] [address] [place] [address], [facility] PRESSURE SUPPORT 5 Normal [facility] Comment on above: Order Comment: No: D o not add to previous draw Performed By: #### 5 0103 #### [facility] [address] [place] [address], [facility] TIDAL VOLUME (VT) CC 500 Normal [facility] Comment on above: Order Comment: No: D o not add to previous draw Performed By: #### 5 0103 #### [facility] [address] [place] [address], [facility] BASIC METABOLIC PANELon 04-15 Calcium mass conc 8.0 mg/dL Low 8.6-10.3 [facility] Comment on above: Order Comment: No: D o not add to previous draw Performed By: #### 5 0103 #### [facility] [address] [place] [address], [facility] Creatinine mass conc 0.91 mg/dL Normal 0.60-1.20 [facility] Comment on above: Order Comment: No: D o not add to previous draw Performed By: #### 5 0103 #### [facility] [address] [place] [address], [facility] Urea nitrogen mass conc 16 mg/dL Normal 7-25 [facility] Comment on above: Order Comment: No: D o not add to previous draw Performed By: #### 5 0103 #### [facility] [address] [place] [address], [place] Potassium molar conc 4.6 mmol/L Normal 3.5-4.9 [facility] Comment on above: Order Comment: No: D o not add to previous draw Performed By: #### 5 0103 #### [facility] [address] [place] [address], [place] Performed By: #### 3 1018 #### [facility] [address] [place] [address], [place] Performed By: #### 8 5499 #### [facility] [address] [place] [address], [place] Calcium mass conc 6.1 mg/dL Low 8.6-10.3 [facility] Comment on above: Order Comment: No: D o not add to previous draw Performed By: #### 3 1488 #### [facility] [address] [place] [address], [place] Chloride molar conc 114 mmol/L High 98-107 [facility] Comment on above: Order Comment: No: D o not add to previous draw Performed By: #### 5 0103 #### [facility] [address] [place] [address], [place] Performed By: #### 3 1488 #### [facility] [address] [place] [address], [place] CO2 molar conc 22 mmol/L Normal 21-31 [facility] Comment on above: Order Comment: No: D o not add to previous draw Performed By: #### 5 0103 #### [facility] [address] [place] [address], [place] Performed By: #### 3 1488 #### [facility] [address] [place] [id number], [facility] Creatinine mass conc 0.90 mg/dL Normal 0.60-1.20 [facility] Comment on above: Order Comment: No: D o not add to previous draw Performed By: #### 3 1488 #### [facility] [address] [place] [address], [facility] GFR/1.73 sq M predicted among blacks MDRD vol rate/area (S/P/Bld) mL/min/{1.73_m2} Normal >60 [facility] Comment on above: Order Comment: No: D o not add to previous draw Performed By: #### 5 0103 #### [facility] [address] [place] [address], [facility] Performed By: #### 3 1488 #### [facility] [address] [place] [address], [facility] GFR/1.73 sq M predicted among non-blacks MDRD vol rate/area (S/P/Bld) mL/min/{1.73_m2} Normal >60 [facility] Comment on above: Order Comment: No: D o not add to previous draw Performed By: #### 5 0103 #### [facility] [address] [place] [address], [facility] Performed By: #### 3 1488 #### [facility] [address] [place] [address], [facility] Glucose mass conc 169 mg/dL High 70-100 [facility] Comment on above: Order Comment: No: D o not add to previous draw Performed By: #### 3 1488 #### [facility] [address] [place] [id number], [facility] Potassium molar conc 5.1 mmol/L Normal 3.5-5.1 [facility] Comment on above: Order Comment: No: D o not add to previous draw Performed By: #### 3 1488 #### [facility] [address] [place] [address], [place] Sodium molar conc 140 mmol/L Normal 136-145 [facility] Comment on above: Order Comment: No: D o not add to previous draw Performed By: #### 3 1488 #### [facility] [address] [place] [address], [place] Urea nitrogen mass conc 15 mg/dL Normal 7-25 [facility] Comment on above: Order Comment: No: D o not add to previous draw Performed By: #### 3 1488 #### [facility] [address] [place] [address], [place] Sodium molar conc 141 mmol/L Normal 138-146 [facility] Comment on above: Order Comment: No: D o not add to previous draw Performed By: #### 5 0103 #### [facility] [address] [place] [address], [facility] Performed By: #### 8 5499 #### [facility] [address] [place] [address], [place] Glucose mass conc 177 mg/dL High 70-105 [facility] Comment on above: Order Comment: No: D o not add to previous draw Performed By: #### 5 0103 #### [facility] [address] [place] [address], [facility] Performed By: #### 8 5499 #### [facility] [address] [place] [address], [place] CBC COMPLETE BLOOD COUNTon 0 - Erythrocyte distribution width Ratio (RBC) 15.5 % High 11.5-15.0 [facility] Comment on above: Order Comment: on ar rival to CVUNo: Do not add to previous draw Performed By: #### 3 1018 #### [facility] [address] [place] [address], [place] Hematocrit Volume Fraction (Bld) 37.3 % Normal 36.0-45.0 [facility] Comment on above: Order Comment: on ar rival to CVUNo: Do not add to previous draw Performed By: #### 3 1018 #### [facility] [address] [place] [address], [facility] Hemoglobin mass conc (Bld) 12.3 g/dL Normal 12.0-15.0 [facility] Comment on above: Order Comment: on ar rival to CVUNo: Do not add to previous draw Performed By: #### 3 1018 #### [facility] [address] [place] [address], [facility] MCH Entitic mass (RBC) 27.0 pg Normal 27.0-33.0 [facility] Comment on above: Order Comment: on ar rival to CVUNo: Do not add to previous draw Performed By: #### 3 1018 #### [facility] [address] [place] [address], [facility] MCHC mass conc (RBC) 33.0 g/dL Normal 32.0-35.0 [facility] Comment on above: Order Comment: on ar rival to CVUNo: Do not add to previous draw Performed By: #### 3 1018 #### [facility] [address] [place] [address], [facility] MCV Entitic volume (RBC) 82.0 fL Normal 82.0-98.0 [facility] Comment on above: Order Comment: on ar rival to CVUNo: Do not add to previous draw Performed By: #### 3 1018 #### [facility] [address] [place] [id number], [facility] PLAT CNT 137 10*3/uL Low 150-400 [facility] Comment on above: Order Comment: on ar rival to CVUNo: Do not add to previous draw Performed By: #### 3 1018 #### [facility] [address] [place] [id number], [facility] RBC #/vol (Bld) 4.55 10*6/uL Normal 3.80-5.00 [facility] Comment on above: Order Comment: on ar rival to CVUNo: Do not add to previous draw Performed By: #### 3 1018 #### [facility] [address] WBC #/vol (Bld) 16.06 10*3/uL High 4.00-10.60 [facility] Comment on above: Order Comment: on ar rival to CVUNo: Do not add to previous draw Performed By: #### 3 1018 #### [facility] [address] Erythrocyte distribution width Ratio (RBC) 15.8 % High 11.5-15.0 [facility] Comment on above: Performed By: #### 3 1018 #### [facility] [address] Hematocrit Volume Fraction (Bld) 26.4 % Low 36.0-45.0 [facility] Comment on above: Performed By: #### 3 1018 #### [facility] [address] Hemoglobin mass conc (Bld) 8.9 g/dL Low 12.0-15.0 [facility] Comment on above: Performed By: #### 3 1018 #### [facility] [address] MCH Entitic mass (RBC) 27.7 pg Normal 27.0-33.0 [facility] Comment on above: Performed By: #### 3 1018 #### [facility] [address] MCHC mass conc (RBC) 33.7 g/dL Normal 32.0-35.0 [facility] Comment on above: Performed By: #### 3 1018 #### [facility] [address] [place] [address], [facility] MCV Entitic volume (RBC) 82.2 fL Normal 82.0-98.0 [facility] Comment on above: Performed By: #### 3 1018 #### [facility] [address] [place] [address], [facility] Nucleated RBC/100 WBC Ratio (Bld) 0 % Normal 0-0 [facility] Comment on above: Order Comment: on ar rival to CVUNo: Do not add to previous draw Performed By: #### 3 1018 #### [facility] [address] [place] [address], [facility] PLAT CNT 107 10*3/uL Low 150-400 [facility] Comment on above: Performed By: #### 3 1018 #### [facility] [address] [place] [address], [facility] RBC #/vol (Bld) 3.21 10*6/uL Low 3.80-5.00 [facility] Comment on above: Performed By: #### 3 1018 #### [facility] [address] [place] [address], [facility] WBC #/vol (Bld) 12.82 10*3/uL High 4.00-10.60 [facility] Comment on above: Performed By: #### 3 1018 #### [facility] [address] [place] [address], [facility] MAGNESIUM BLOODon 04-28-2018 Magnesium mass conc 2.8 mg/dL High 1.9-2.7 [facility] Comment on above: Order Comment: No: D o not add to previous draw Performed By: #### 5 0103 #### [facility] [address] [place] [address], [facility] Magnesium mass conc 3.1 mg/dL High 1.9-2.7 [facility] Comment on above: Performed By: #### 3 1488 #### [facility] [address] [place] [address], [facility] PERFUSION BLOOD PANELon 04-15 BASE EXCESS -6.0 mmol/L Low -2.0-3.0 [facility] Comment on above: Performed By: #### 3 1018 #### [facility] [address] [place] [address], [facility] Glucose mass conc 141 mg/dL High 70-105 [facility] Comment on above: Performed By: #### 3 1018 #### [facility] [address] [place] [address], [facility] Hematocrit Volume Fraction (Bld) 31 % Low 38-51 [facility] Comment on above: Performed By: #### 3 1018 #### [facility] [address] [place] [address], [facility] Hemoglobin mass conc (Bld) 10.5 g/dL Low 12.0-17.0 [facility] Comment on above: Performed By: #### 3 1018 #### [facility] [address] [place] [address], [facility] IONIZED CALCIUM 1.10 mmol/L Low 1.12-1.32 [facility] Comment on above: Performed By: #### 3 1018 #### [facility] [address] [place] [address], [facility] Oxygen ppres (Bld) 194.0 mm[Hg] High 80.0-105.0 [facility] Comment on above: Performed By: #### 3 1018 #### [facility] [address] [place] [address], [facility] PCO2 38.8 mmHg Normal 35.0-45.0 [facility] Comment on above: Performed By: #### 3 1018 #### [facility] [address] [place] [address], [facility] pH (Bld) 7.32 [pH] Low 7.35-7.45 [facility] Comment on above: Performed By: #### 3 1018 #### [facility] [address] [place] [address], [facility] Potassium molar conc 4.3 mmol/L Normal 3.5-4.9 [facility] Comment on above: Performed By: #### 3 1018 #### [facility] [address] [facility]. [address] Sodium molar conc 144 mmol/L Normal 138-146 [facility] Comment on above: Performed By: #### 3 1018 #### [facility] [address] [facility]. [address] BASE EXCESS -15.0 mmol/L Low -2.0-3.0 [facility] Comment on above: Performed By: #### 3 1018 #### [facility] [address] [facility]. [address] Glucose mass conc 114 mg/dL High 70-105 [facility] Comment on above: Performed By: #### 3 1018 #### [facility] [address] Hematocrit Volume Fraction (Bld) 19 % Low 38-51 [facility] Comment on above: Performed By: #### 3 1018 #### [facility] [address] [facility]. [address] Hemoglobin mass conc (Bld) 6.5 g/dL Low 12.0-17.0 [facility] Comment on above: Performed By: #### 3 1018 #### [facility] [address] [facility]. [address] IONIZED CALCIUM 0.74 mmol/L Critically low 1.12-1.32 [facility] Comment on above: Performed By: #### 3 1018 #### [facility] [address] [place] [address], [facility] Oxygen ppres (Bld) 35.0 mm[Hg] Normal [facility] Comment on above: Performed By: #### 3 1018 #### [facility] [address] [place] [address], [facility] PCO2 23.7 mmHg Low 41.0-51.0 [facility] Comment on above: Performed By: #### 3 1018 #### [facility] [address] [place] [address], [facility] pH (Bld) 7.27 [pH] Low 7.31-7.41 [facility] Comment on above: Performed By: #### 3 1018 #### [facility] [address] [place] [address], [facility] Potassium molar conc 2.3 mmol/L Critically low 3.5-4.9 [facility] Comment on above: Performed By: #### 3 1018 #### [facility] [address] [place] [address], [facility] Sodium molar conc 151 mmol/L High 138-146 [facility] Comment on above: Performed By: #### 3 1018 #### [facility] [address] [place] [address], [facility] BASE EXCESS -5.0 mmol/L Low -2.0-3.0 [facility] Comment on above: Performed By: #### 3 1018 #### [facility] [address] [place] [address], [facility] Glucose mass conc 150 mg/dL High 70-105 [facility] Comment on above: Performed By: #### 3 1018 #### [facility] [address] [place] [address], [facility] Hematocrit Volume Fraction (Bld) 27 % Low 38-51 [facility] Comment on above: Performed By: #### 3 1018 #### [facility] [address] [place] [address], [facility] Hemoglobin mass conc (Bld) 9.2 g/dL Low 12.0-17.0 [facility] Comment on above: Performed By: #### 3 1018 #### [facility] [address] [place] [address], [facility] IONIZED CALCIUM 1.17 mmol/L Normal 1.12-1.32 [facility] Comment on above: Performed By: #### 3 1018 #### [facility] [address] [place] [address], [facility] Oxygen ppres (Bld) 25.0 mm[Hg] Normal [facility] Comment on above: Performed By: #### 3 1018 #### [facility] [address] [place] [address], [facility] PCO2 48.3 mmHg Normal 41.0-51.0 [facility] Comment on above: Performed By: #### 3 1018 #### [facility] [address] [place] [address], [facility] pH (Bld) 7.26 [pH] Low 7.31-7.41 [facility] Comment on above: Performed By: #### 3 1018 #### [facility] [address] [place] [address], [facility] Sodium molar conc 143 mmol/L Normal 138-146 [facility] Comment on above: Performed By: #### 3 1018 #### [facility] [address] [place] [address], [facility] BASE EXCESS -3.0 mmol/L Low -2.0-3.0 [facility] Comment on above: Performed By: #### 8 5499 #### [facility] [address] [place] [address], [facility] Glucose mass conc 151 mg/dL High 70-105 [facility] Comment on above: Performed By: #### 8 5499 #### [facility] [address] [place] [address], [facility] Hematocrit Volume Fraction (Bld) 22 % Low 38-51 [facility] Comment on above: Performed By: #### 8 5499 #### [facility] [address] [place] [address], [facility] Hemoglobin mass conc (Bld) 7.5 g/dL Low 12.0-17.0 [facility] Comment on above: Performed By: #### 8 5499 #### [facility] [address] [place] [address], [facility] IONIZED CALCIUM 1.22 mmol/L Normal 1.12-1.32 [facility] Comment on above: Performed By: #### 8 5499 #### [facility] [address] [place] [address], [facility] Oxygen ppres (Bld) 252.0 mm[Hg] High 80.0-105.0 [facility] Comment on above: Performed By: #### 8 5499 #### [facility] [address] [place] [address], [facility] PCO2 41.0 mmHg Normal 35.0-45.0 [facility] Comment on above: Performed By: #### 8 5499 #### [facility] [address] [place] [address], [facility] pH (Bld) 7.35 [pH] Normal 7.35-7.45 [facility] Comment on above: Performed By: #### 8 5499 #### [facility] [address] [place] [address], [facility] Potassium molar conc 4.5 mmol/L Normal 3.5-4.9 [facility] Comment on above: Performed By: #### 8 5499 #### [facility] [address] Sodium molar conc 143 mmol/L Normal 138-146 [facility] Comment on above: Performed By: #### 8 5499 #### [facility] [address] [facility]. [address] BASE EXCESS -4.0 mmol/L Low -2.0-3.0 [facility] Comment on above: Performed By: #### 3 1018 #### [facility] [address] [facility]. [address] Glucose mass conc 144 mg/dL High 70-105 [facility] Comment on above: Performed By: #### 3 1018 #### [facility] [address] [facility]. [address] Hematocrit Volume Fraction (Bld) 21 % Low 38-51 [facility] Comment on above: Performed By: #### 3 1018 #### [facility] [address] [facility]. [address] Hemoglobin mass conc (Bld) 7.1 g/dL Low 12.0-17.0 [facility] Comment on above: Performed By: #### 3 1018 #### [facility] [address] [facility]. [address] IONIZED CALCIUM 1.24 mmol/L Normal 1.12-1.32 [facility] Comment on above: Performed By: #### 3 1018 #### [facility] [address] [facility]. [address] Oxygen ppres (Bld) 25.0 mm[Hg] Normal [facility] Comment on above: Performed By: #### 3 1018 #### [facility] [address] [facility] [place] [address], [facility] PCO2 49.9 mmHg Normal 41.0-51.0 [facility] Comment on above: Performed By: #### 3 1018 #### [facility] [address] [facility] [place] [address], [facility] pH (Bld) 7.26 [pH] Low 7.31-7.41 [facility] Comment on above: Performed By: #### 3 1018 #### [facility] [address] [place] [address], [facility] Potassium molar conc 4.8 mmol/L Normal 3.5-4.9 [facility] Comment on above: Performed By: #### 3 1018 #### [facility] [address] [place] [address], [facility] Sodium molar conc 142 mmol/L Normal 138-146 [facility] Comment on above: Performed By: #### 3 1018 #### [facility] [address] [place] [address], [facility] BASE EXCESS -1.0 mmol/L Normal -2.0-3.0 [facility] Comment on above: Performed By: #### 3 1018 #### [facility] [address] [place] [address], [facility] Glucose mass conc 159 mg/dL High 70-105 [facility] Comment on above: Performed By: #### 3 1018 #### [facility] [address] [place] [address], [facility] Hematocrit Volume Fraction (Bld) 22 % Low 38-51 [facility] Comment on above: Performed By: #### 3 1018 #### [facility] [address] [place] [address], [facility] Hemoglobin mass conc (Bld) 7.5 g/dL Low 12.0-17.0 [facility] Comment on above: Performed By: #### 3 1018 #### [facility] [address] [place] [address], [place] IONIZED CALCIUM 1.46 mmol/L High 1.12-1.32 [facility] Comment on above: Performed By: #### 3 1018 #### [facility] [address] [place] [address], [facility] Oxygen ppres (Bld) 419.0 mm[Hg] High 80.0-105.0 [facility] Comment on above: Performed By: #### 3 1018 #### [facility] [address] [place] [address], [facility] PCO2 45.5 mmHg High 35.0-45.0 [facility] Comment on above: Performed By: #### 3 1018 #### [facility] [address] [place] [address], [facility] pH (Bld) 7.34 [pH] Low 7.35-7.45 [facility] Comment on above: Performed By: #### 3 1018 #### [facility] [address] [place] [address], [facility] Potassium molar conc 4.8 mmol/L Normal 3.5-4.9 [facility] Comment on above: Performed By: #### 3 1018 #### [facility] [address] [place] [address], [facility] Sodium molar conc 139 mmol/L Normal 138-146 [facility] Comment on above: Performed By: #### 3 1018 #### [facility] [address] [place] [address], [facility] BASE EXCESS 1.0 mmol/L Normal -2.0-3.0 [facility] Comment on above: Performed By: #### 8 5499 #### [facility] [address] [place] [address], [facility] Glucose mass conc 148 mg/dL High 70-105 [facility] Comment on above: Performed By: #### 8 5499 #### [facility] [address] [place] [address], [facility] Hematocrit Volume Fraction (Bld) 20 % Low 38-51 [facility] Comment on above: Performed By: #### 8 5499 #### [facility] [address] [facility]. [address] Hemoglobin mass conc (Bld) 6.8 g/dL Low 12.0-17.0 [facility] Comment on above: Performed By: #### 8 5499 #### [facility] [address] [facility]. [address] IONIZED CALCIUM 0.92 mmol/L Low 1.12-1.32 [facility] Comment on above: Performed By: #### 8 5499 #### [facility] [address] Oxygen ppres (Bld) 451.0 mm[Hg] High 80.0-105.0 [facility] Comment on above: Performed By: #### 8 5499 #### [facility] [address] PCO2 40.7 mmHg Normal 35.0-45.0 [facility] Comment on above: Performed By: #### 8 5499 #### [facility] [address] pH (Bld) 7.41 [pH] Normal 7.35-7.45 [facility] Comment on above: Performed By: #### 8 5499 #### [facility] [address] Potassium molar conc 4.9 mmol/L Normal 3.5-4.9 [facility] Comment on above: Performed By: #### 8 5499 #### [facility] [address] [place] [address], [facility] Sodium molar conc 140 mmol/L Normal 138-146 [facility] Comment on above: Performed By: #### 8 5499 #### [facility] [address] [facility]. [place] [id number], [facility] BASE EXCESS -3.0 mmol/L Low -2.0-3.0 [facility] Comment on above: Performed By: #### 8 5499 #### [facility] [address] [place] [address], [facility] Glucose mass conc 174 mg/dL High 70-105 [facility] Comment on above: Performed By: #### 8 5499 #### [facility] [address] [facility] [place] [address], [facility] Hematocrit Volume Fraction (Bld) 23 % Low 38-51 [facility] Comment on above: Performed By: #### 8 5499 #### [facility] [address] [facility] [place] [place] [address], [facility] Hemoglobin mass conc (Bld) 7.8 g/dL Low 12.0-17.0 [facility] Comment on above: Performed By: #### 8 5499 #### [facility] [address] [facility] [place] [address], [facility] IONIZED CALCIUM 0.99 mmol/L Low 1.12-1.32 [facility] Comment on above: Performed By: #### 8 5499 #### [facility] [address] [place] [address], [facility] Oxygen ppres (Bld) 533.0 mm[Hg] High 80.0-105.0 [facility] Comment on above: Performed By: #### 8 5499 #### [facility] [address] [facility] [place] [address], [facility] PCO2 48.6 mmHg High 35.0-45.0 [facility] Comment on above: Performed By: #### 8 5499 #### [facility] [address] [place] [address], [facility] pH (Bld) 7.29 [pH] Low 7.35-7.45 [facility] Comment on above: Performed By: #### 8 5499 #### [facility] [address] [place] [address], [facility] Sodium molar conc 140 mmol/L Normal 138-146 [facility] Comment on above: Performed By: #### 8 5499 #### [facility] [address] [place] [address], [facility] BASE EXCESS -1.0 mmol/L Normal -2.0-3.0 [facility] Comment on above: Performed By: #### 8 5499 #### [facility] [address] [place] [address], [facility] Glucose mass conc 144 mg/dL High 70-105 [facility] Comment on above: Performed By: #### 8 5499 #### [facility] [address] [place] [address], [facility] Hematocrit Volume Fraction (Bld) 20 % Low 38-51 [facility] Comment on above: Performed By: #### 8 5499 #### [facility] [address] [place] [address], [facility] Hemoglobin mass conc (Bld) 6.8 g/dL Low 12.0-17.0 [facility] Comment on above: Performed By: #### 8 5499 #### [facility] [address] [place] [address], [facility] IONIZED CALCIUM 0.97 mmol/L Low 1.12-1.32 [facility] Comment on above: Performed By: #### 8 5499 #### [facility] [address] [place] [address], [facility] Oxygen ppres (Bld) 474.0 mm[Hg] High 80.0-105.0 [facility] Comment on above: Performed By: #### 8 5499 #### [facility] [address] [place] [address], [facility] PCO2 39.4 mmHg Normal 35.0-45.0 [facility] Comment on above: Performed By: #### 8 5499 #### [facility] [address] [place] [address], [facility] pH (Bld) 7.39 [pH] Normal 7.35-7.45 [facility] Comment on above: Performed By: #### 8 5499 #### [facility] [address] [place] [address], [facility] Potassium molar conc 5.0 mmol/L High 3.5-4.9 [facility] Comment on above: Performed By: #### 8 [id number] #### [facility] [address] [facility] [place] [address], [facility] Sodium molar conc 138 mmol/L Normal 138-146 [facility] Comment on above: Performed By: #### 8 [id number] #### [facility] [address] BASE EXCESS -1.0 mmol/L Normal -2.0-3.0 [facility] Comment on above: Performed By: #### 8 [id number] #### [facility] [address] [facility]. [address] Glucose mass conc 151 mg/dL High 70-105 [facility] Comment on above: Performed By: #### 8 5499 #### [facility] [address] Hematocrit Volume Fraction (Bld) 20 % Low 38-51 [facility] Comment on above: Performed By: #### 8 [id number] #### [facility] [address] [facility] [place] [address], [facility] Hemoglobin mass conc (Bld) 6.8 g/dL Low 12.0-17.0 [facility] Comment on above: Performed By: #### 8 5499 #### [facility] [address] [facility] [place] [address], [facility] IONIZED CALCIUM 1.05 mmol/L Low 1.12-1.32 [facility] Comment on above: Performed By: #### 8 [id number] #### [facility] [address] [place] [address], [facility] Oxygen ppres (Bld) 480.0 mm[Hg] High 80.0-105.0 [facility] Comment on above: Performed By: #### 8 [id number] #### [facility] [address] [place] [address], [facility] PCO2 43.9 mmHg Normal 35.0-45.0 [facility] Comment on above: Performed By: #### 8 [id number] #### [facility] [address] [place] [address], [facility] pH (Bld) 7.36 [pH] Normal 7.35-7.45 [facility] Comment on above: Performed By: #### 8 [id number] #### [facility] [address] [place] [address], [facility] Potassium molar conc 3.7 mmol/L Normal 3.5-4.9 [facility] Comment on above: Performed By: #### 8 [id number] #### [facility] [address] [place] [address], [facility] BASE EXCESS -2.0 mmol/L Normal -2.0-3.0 [facility] Comment on above: Performed By: #### 8 [id number] #### [facility] [address] [place] [address], [facility] Glucose mass conc 156 mg/dL High 70-105 [facility] Comment on above: Performed By: #### 8 [id number] #### [facility] [address] [place] [address], [facility] Hematocrit Volume Fraction (Bld) 17 % Low 38-51 [facility] Comment on above: Performed By: #### 8 [id number] #### [facility] [address] [place] [address], [facility] Hemoglobin mass conc (Bld) 5.8 g/dL Critically low 12.0-17.0 [facility] Comment on above: Performed By: #### [id number] #### [facility] [address] [place] [address], [facility] IONIZED CALCIUM 0.95 mmol/L Low 1.12-1.32 [facility] Comment on above: Performed By: #### [id number] #### [facility] [address] [facility] [facility] [place] [address], [facility] Oxygen ppres (Bld) 482.0 mm[Hg] High 80.0-105.0 [facility] Comment on above: Performed By: #### [id number] #### [facility] [address] [facility] [address], [facility] PCO2 42.4 mmHg Normal 35.0-45.0 [facility] Comment on above: Performed By: #### [id number] #### [facility] [address] [facility] [place] [address], [facility] pH (Bld) 7.35 [pH] Normal 7.35-7.45 [facility] Comment on above: Performed By: #### [id number] #### [facility] [address] [facility] [place] [address], [facility] Potassium molar conc 4.5 mmol/L Normal 3.5-4.9 [facility] Comment on above: Performed By: #### [id number] #### [facility] [address] [facility] [place] [address], [facility] Sodium molar conc 139 mmol/L Normal 138-146 [facility] Comment on above: Performed By: #### [id number] #### [facility] [address] [place] [address], [facility] BASE EXCESS -6.0 mmol/L Low -2.0-3.0 [facility] Comment on above: Performed By: #### [id number] #### [facility] [address] Glucose mass conc 181 mg/dL High 70-105 [facility] Comment on above: Performed By: #### [id number] #### [facility] [address] [facility]. [address] Hematocrit Volume Fraction (Bld) 22 % Low 38-51 [facility] Comment on above: Performed By: #### 8 5499 #### [facility] [address] Hemoglobin mass conc (Bld) 7.5 g/dL Low 12.0-17.0 [facility] Comment on above: Performed By: #### 8 5499 #### [facility] [address] IONIZED CALCIUM 1.14 mmol/L Normal 1.12-1.32 [facility] Comment on above: Performed By: #### 8 5499 #### [facility] [address] Oxygen ppres (Bld) 31.0 mm[Hg] Normal [facility] Comment on above: Performed By: #### 8 5499 #### [facility] [address] PCO2 49.4 mmHg Normal 41.0-51.0 [facility] Comment on above: Performed By: #### 8 5499 #### [facility] [address] [facility] [place] [address], [facility] pH (Bld) 7.24 [pH] Low 7.31-7.41 [facility] Comment on above: Performed By: #### 8 5499 #### [facility] [address] [place] [address], [facility] Sodium molar conc 142 mmol/L Normal 138-146 [facility] Comment on above: Performed By: #### 8 5499 #### [facility] [address] [place] [address], [facility] BASE EXCESS -5.0 mmol/L Low -2.0-3.0 [facility] Comment on above: Performed By: #### 8 5499 #### [facility] [address] [place] [address], [facility] Hematocrit Volume Fraction (Bld) 23 % Low 38-51 [facility] Comment on above: Performed By: #### 8 5499 #### [facility] [address] [place] [address], [facility] Hemoglobin mass conc (Bld) 7.8 g/dL Low 12.0-17.0 [facility] Comment on above: Performed By: #### 8 5499 #### [facility] [address] [place] [address], [facility] IONIZED CALCIUM 1.14 mmol/L Normal 1.12-1.32 [facility] Comment on above: Performed By: #### 8 5499 #### [facility] [address] [place] [address], [facility] Oxygen ppres (Bld) 326.0 mm[Hg] High 80.0-105.0 [facility] Comment on above: Performed By: #### 8 5499 #### [facility] [address] [place] [address], [facility] PCO2 39.6 mmHg Normal 35.0-45.0 [facility] Comment on above: Performed By: #### 8 5499 #### [facility] [address] [place] [address], [facility] pH (Bld) 7.33 [pH] Low 7.35-7.45 [facility] Comment on above: Performed By: #### 8 5499 #### [facility] [address] [place] [address], [facility] Potassium molar conc 4.7 mmol/L Normal 3.5-4.9 [facility] Comment on above: Performed By: #### 8 5499 #### [facility] [address] [place] [address], [facility] Sodium molar conc 140 mmol/L Normal 138-146 [facility] Comment on above: Performed By: #### 8 5499 #### [facility] [address] [place] [address], [facility] BASE EXCESS -4.0 mmol/L Low -2.0-3.0 [facility] Comment on above: Performed By: #### 3 1488 #### [facility] [address] [place] [address], [facility] Glucose mass conc 161 mg/dL High 70-105 [facility] Comment on above: Performed By: #### 3 1488 #### [facility] [address] [place] [address], [facility] Hematocrit Volume Fraction (Bld) 30 % Low 38-51 [facility] Comment on above: Performed By: #### 3 1488 #### [facility] [address] [place] [address], [facility] Hemoglobin mass conc (Bld) 10.2 g/dL Low 12.0-17.0 [facility] Comment on above: Performed By: #### 3 1488 #### [facility] [address] [place] [address], [facility] IONIZED CALCIUM 1.19 mmol/L Normal 1.12-1.32 [facility] Comment on above: Performed By: #### 3 1488 #### [facility] [address] [place] [address], [facility] Oxygen ppres (Bld) 250.0 mm[Hg] High 80.0-105.0 [facility] Comment on above: Performed By: #### 3 1488 #### [facility] [address] [place] [address], [facility] PCO2 47.1 mmHg High 35.0-45.0 [facility] Comment on above: Performed By: #### 3 1488 #### [facility] [address] [facility] [place] [address], [facility] pH (Bld) 7.29 [pH] Low 7.35-7.45 [facility] Comment on above: Performed By: #### 3 1488 #### [facility] [address] [facility] [place] [address], [facility] Potassium molar conc 4.5 mmol/L Normal 3.5-4.9 [facility] Comment on above: Performed By: #### 3 1488 #### [facility] [address] [facility] [place] [address], [facility] Sodium molar conc 139 mmol/L Normal 138-146 [facility] Comment on above: Performed By: #### 3 1488 #### [facility] [address] [facility] [place] [address], [facility] BASE EXCESS -4.0 mmol/L Low -2.0-3.0 [facility] Comment on above: Performed By: #### 8 5123 #### [facility] [address] [facility] [place] [address], [facility] Glucose mass conc 206 mg/dL High 70-105 [facility] Comment on above: Performed By: #### 8 5123 #### [facility] [address] [facility] [place] [address], [facility] Hematocrit Volume Fraction (Bld) 32 % Low 38-51 [facility] Comment on above: Performed By: #### 8 5123 #### [facility] [address] [facility] [place] [address], [facility] Hemoglobin mass conc (Bld) 10.9 g/dL Low 12.0-17.0 [facility] Comment on above: Performed By: #### 8 5123 #### [facility] [address] [place] [address], [facility] IONIZED CALCIUM 1.20 mmol/L Normal 1.12-1.32 [facility] Comment on above: Performed By: #### 8 5123 #### [facility] [address] [place] [address], [facility] Oxygen ppres (Bld) 108.0 mm[Hg] High 80.0-105.0 [facility] Comment on above: Performed By: #### 8 5123 #### [facility] [address] [place] [address], [facility] PCO2 41.2 mmHg Normal 35.0-45.0 [facility] Comment on above: Performed By: #### 8 5123 #### [facility] [address] [place] [address], [facility] pH (Bld) 7.33 [pH] Low 7.35-7.45 [facility] Comment on above: Performed By: #### 8 5123 #### [facility] [address] [place] [address], [facility] Potassium molar conc 4.3 mmol/L Normal 3.5-4.9 [facility] Comment on above: Performed By: #### 8 5123 #### [facility] [address] [place] [address], [facility] Sodium molar conc 139 mmol/L Normal 138-146 [facility] Comment on above: Performed By: #### 8 5123 #### [facility] [address] [place] [address], [facility] POC GLUCOSE LABon 04-28-2018 Glucose mass conc 167 mg/dL High 70-100 [facility] Comment on above: Performed By: #### 5 0103 #### [facility] [address] [facility] [place] [address], [place] Glucose mass conc 161 mg/dL High 70-100 [facility] Comment on above: Performed By: #### 5 0103 #### [facility] [address] [facility] [place] [address], [place] Glucose mass conc 160 mg/dL High 70-100 [facility] Comment on above: Performed By: #### 3 1018 #### [facility] [address] [facility] [place] [address], [place] Glucose mass conc 230 mg/dL High 70-100 [facility] Comment on above: Performed By: #### 3 6901, 42724, 73568 #### [facility] [address] [facility] [place] [address], [place] PORTABLE CHEST 1 VIEWon 04-15 PORTABLE CHEST 1 VIEW [facility] Department of Radiology [address] [place] [id number] ======== Patient Name: PATO CORRAL : 1960 Sex: F Age: Race: White Pt. Location: [id number] Patient Status: I Ordered Date: 04/28/2018 6:15:00 [...] stomach, in satisfactory position. Right IJ approach Pitts-Jen catheter with tip in the main pulmonary [...] tube in satisfactory position. Right IJ approach Pitts-Jen catheter with tip in the main pulmonary [...] findings. Electronically signed by:Jerry Charles. Transcribed by: [email or web address], User Resident: CHANTE HAINES Electronically Signed by: JERRY CHARLES @ 04/29/2018 07:53 AM I personally read this/these film(s) with this resident Normal [facility] Comment on above: Order Comment: No: D o not add to previous draw PROTHROMBIN TIMEon 9 INR Coag RelTime (PPP) 1.37 {INR} High 0.91-1.16 [facility] Comment on above: [...] 1995;108:231S-246S. Performed By: #### 5 0103 #### [facility] [address] Prothrombin time (PT) Coag time (PPP) 16.9 s High 12.3-14.8 [facility] Comment on above: Result Comment: ALL RESULTS MUST BE INTERPRETED WITH RESPECT TO BLOOD DRAWING ARTIFACT OR DILUTION ERROR OF ANTICOAGULANT AT THE TIME OF SAMPLING. Performed By: #### 5 0103 #### [facility] [address] [place] [address], [facility] RBC'S 2 UNITSon 04-28-2018 CROSSMATCH INTERP 1 COMP Normal [facility] Comment on above: Performed By: #### 3 1488 #### [facility] [address] [place] [address], [facility] CROSSMATCH INTERP 2 COMP Normal [facility] Comment on above: Performed By: #### 3 5268 #### [facility] [address] [place] [address], [place] Protein mass conc PT Normal [facility] Comment on above: Result Comment: Resu lt changed by IF on 04/29/2018 10:38. The previous value was XM. Result changed by IF on 04/30/2018 00:30. The previous value was IS. Performed By: #### 3 1488 #### [facility] [address] [place] [address], [place] Protein mass conc 336 g/dL Normal [facility] Comment on above: Performed By: #### 3 1488 #### [facility] [address] [place] [address], [place] Protein mass conc RE Normal [facility] Comment on above: Result Comment: Resu lt changed by IF on 05/01/2018 07:28. The previous value was XM. Performed By: #### 3 1488 #### [facility] [address] [place] [address], [place] UNIT ABO 1 O Normal [facility] Comment on above: Performed By: #### 3 1488 #### [facility] [address] [place] [address], [place] UNIT ABO 2 O Normal [facility] Comment on above: Performed By: #### 3 1488 #### [facility] [address] [place] [address], [facility] UNIT ID 1 [id number] Normal [facility] Comment on above: Performed By: #### 3 1488 #### [facility] [address] [place] [address], [place] UNIT ID 2 [id number] Normal [facility] Comment on above: Performed By: #### 3 1488 #### [facility] [address] [place] [address], [place] UNIT RH 1 Positive Normal [facility] Comment on above: Performed By: #### 3 1488 #### [facility] [address] [place] [address], [place] UNIT RH 2 Positive Normal [facility] Comment on above: Performed By: #### 3 1488 #### [facility] [address] [place] [address], [place] CROSSMATCH INTERP 1 COMP Normal [facility] Comment on above: Performed By: #### 8 5123 #### [facility] [address] [place] [address], [place] CROSSMATCH INTERP 2 COMP Normal [facility] Comment on above: Performed By: #### 8 5123 #### [facility] [address] [place] [address], [place] Protein mass conc 336 g/dL Normal [facility] Comment on above: Performed By: #### 8 5123 #### [facility] [address] [place] [address], [place] Protein mass conc PT Normal [facility] Comment on above: Result Comment: Resu lt changed by IF on 04/28/2018 15:02. The previous value was XM. Result changed by IF on 04/29/2018 00:30. The previous value was IS. Performed By: #### 8 5123 #### [facility] [address] [place] [address], [place] UNIT ABO 1 O Normal [facility] Comment on above: Performed By: #### 8 5123 #### [facility] [address] [place] [address], [place] UNIT ABO 2 O Normal [facility] Comment on above: Performed By: #### 8 5123 #### [facility] [address] [place] [address], [place] UNIT ID 1 [id number] Normal [facility] Comment on above: Performed By: #### 8 5123 #### [facility] [address] [place] [address], [facility] UNIT ID 2 [id number] Normal [facility] Comment on above: Performed By: #### 8 5123 #### [facility] [address] [place] [address], [facility] UNIT RH 1 Positive Normal [facility] Comment on above: Performed By: #### 8 5123 #### [facility] [address] [place] [address], [place] UNIT RH 2 Positive Normal [facility] Comment on above: Performed By: #### 8 5123 #### [facility] [address] [place] [address], [place] CROSSMATCH INTERP 1 COMP Normal [facility] Comment on above: Performed By: #### 8 5123 #### [facility] [address] [place] [address], [place] CROSSMATCH INTERP 2 COMP Normal [facility] Comment on above: Performed By: #### 8 5123 #### [facility] [address] [place] [address], [place] Protein mass conc 336 g/dL Normal [facility] Comment on above: Performed By: #### 8 5123 #### [facility] [address] [place] [address], [place] Protein mass conc PT Normal [facility] Comment on above: Result Comment: Resu lt changed by IF on 04/28/2018 13:08. The previous value was XM. Result changed by IF on 04/29/2018 00:30. The previous value was IS. Performed By: #### 8 5123 #### [facility] [address] [place] [address], [place] UNIT ABO 1 O Normal [facility] Comment on above: Performed By: #### 8 5123 #### [facility] [address] [place] [address], [facility] UNIT ABO 2 O Normal [facility] Comment on above: Performed By: #### 8 5123 #### [facility] [address] UNIT ID 1 [id number] Normal [facility] Comment on above: Performed By: #### 8 5123 #### [facility] [address] UNIT ID 2 [id number] Normal [facility] Comment on above: Performed By: #### 8 5123 #### [facility] [address] UNIT RH 1 Positive Normal [facility] Comment on above: Performed By: #### 8 5123 #### [facility] [address] UNIT RH 2 Positive Normal [facility] Comment on above: Performed By: #### 8 5123 #### [facility] [address] UFH HEPARIN ASSAYon 04-28-19 19 UNFRACTIONATED HEPARIN <0.10 Critically low 0.30-0.70 [facility] Comment on above: Result Comment: Radha roxaban and Apixaban will interfere with the anti Xa assay used to monitor UFH and LMWH. RESULTS CHECKED AND CALLED. ACCURATELY READ BACK BY BRADY JORDAN RN AT 07:41 Performed By: #### 8 5123 #### [facility] [address] [place] [address], [facility] ARTERIAL BLOOD GAS W/COOXon 04-27-2018 BASE EXCESS 0 mmol/L Normal -2-2 [facility] Comment on above: Performed By: #### 3 6901, 54685, 15187 #### [facility] [address] [place] [address], [place] COHB 1 % Normal 0-1 [facility] Comment on above: Performed By: #### 3 535, 49818, 29624 #### [facility] [address] [place] [address], [place] DELIVERY SYSTEMS ROOM AIR Normal [facility] Comment on above: Performed By: #### 3 6900, 03341, 30382 #### [facility] [address] [place] [address], [place] FIO2 21 % Normal 21-100 [facility] Comment on above: Performed By: #### 3 6900, , 92731 #### [facility] [address] [place] [address], [place] HCO3 molar conc (Bld) 25 mmol/L Normal 23-27 [facility] Comment on above: Performed By: #### 3 6900, 50733, 67100 #### [facility] [address] [place] [address], [place] METHB 0.2 % Normal 0.0-1.5 [facility] Comment on above: Performed By: #### 3 6900, 50630, 74002 #### [facility] [address] [place] [address], [place] Oxygen ppres (Bld) 76 mm[Hg] Normal 75-100 [facility] Comment on above: Performed By: #### 3 441, 62310, 27171 #### [facility] [address] [place] [address], [place] Oxygen saturation in Blood 93.6 % Low 94.0-97.0 [facility] Comment on above: Performed By: #### 3 551, 46354, 11498 #### [facility] [address] [place] [address], [place] PCO2 41 mmHg Normal 35-45 [facility] Comment on above: Performed By: #### 3 6901, 15452, 24014 #### [facility] [address] [place] [address], [facility] pH (Bld) 7.39 [pH] Normal 7.35-7.45 [facility] Comment on above: Performed By: #### 3 6901, 98380, 61729 #### [facility] [address] [place] [address], [facility] THB 13.8 g/dL Normal 12.0-15.0 [facility] Comment on above: Performed By: #### 3 6901, 21808, 97250 #### [facility] [address] [place] [address], [facility] BASIC METABOLIC PANELon - Calcium mass conc 8.7 mg/dL Normal 8.6-10.3 [facility] Comment on above: Order Comment: No: D o not add to previous draw Performed By: #### 3 690, 09259, 02880 #### [facility] [address] [place] [address], [facility] Chloride molar conc 103 mmol/L Normal 98-107 [facility] Comment on above: Order Comment: No: D o not add to previous draw Performed By: #### 3 690, 70942, 70406 #### [facility] [address] [place] [address], [facility] CO2 molar conc 26 mmol/L Normal 21-31 [facility] Comment on above: Order Comment: No: D o not add to previous draw Performed By: #### 3 6901, 40411, 08769 #### [facility] [address] [place] [address], [facility] Creatinine mass conc 0.65 mg/dL Normal 0.60-1.20 [facility] Comment on above: Order Comment: No: D o not add to previous draw Performed By: #### 3 690, 77028, 60550 #### [facility] [address] [place] [address], [place] GFR/1.73 sq M predicted among blacks MDRD vol rate/area (S/P/Bld) mL/min/{1.73_m2} Normal >60 [facility] Comment on above: Order Comment: No: D o not add to previous draw Performed By: #### 3 6900, 71595, 64826 #### [facility] [address] [place] [address], [place] GFR/1.73 sq M predicted among non-blacks MDRD vol rate/area (S/P/Bld) mL/min/{1.73_m2} Normal >60 [facility] Comment on above: Order Comment: No: D o not add to previous draw Performed By: #### 3 6900, , 76732 #### [facility] [address] [place] [address], [place] Glucose mass conc 192 mg/dL High 70-100 [facility] Comment on above: Order Comment: No: D o not add to previous draw Performed By: #### 3 6900, 76719, 71628 #### [facility] [address] [place] [address], [place] Potassium molar conc 3.8 mmol/L Normal 3.5-5.1 [facility] Comment on above: Order Comment: No: D o not add to previous draw Performed By: #### 3 6900, 43334, 57467 #### [facility] [address] [place] [address], [place] Sodium molar conc 135 mmol/L Low 136-145 [facility] Comment on above: Order Comment: No: D o not add to previous draw Performed By: #### 3 6900, 13372, 86377 #### [facility] [address] [place] [address], [place] Urea nitrogen mass conc 12 mg/dL Normal 7-25 [facility] Comment on above: Order Comment: No: D o not add to previous draw Performed By: #### 3 6901, 10914, 70854 #### [facility] [address] [place] [address], [facility] CBC COMPLETE BLOOD COUNTon 0 04-27-2018 Erythrocyte distribution width Ratio (RBC) 14.0 % Normal 11.5-15.0 [facility] Comment on above: Order Comment: No: D o not add to previous draw Performed By: #### 3 6901, 95080, 75190 #### [facility] [address] [place] [address], [facility] Hematocrit Volume Fraction (Bld) 35.3 % Low 36.0-45.0 [facility] Comment on above: Order Comment: No: D o not add to previous draw Performed By: #### 3 6901, 81640, 22421 #### [facility] [address] [place] [address], [facility] Hemoglobin mass conc (Bld) 11.4 g/dL Low 12.0-15.0 [facility] Comment on above: Order Comment: No: D o not add to previous draw Performed By: #### 3 6900, 86567, 48362 #### [facility] [address] [place] [address], [place] MCH Entitic mass (RBC) 25.4 pg Low 27.0-33.0 [facility] Comment on above: Order Comment: No: D o not add to previous draw Performed By: #### 3 6901, 14468, 84225 #### [facility] [address] [place] [address], [place] MCHC mass conc (RBC) 32.3 g/dL Normal 32.0-35.0 [facility] Comment on above: Order Comment: No: D o not add to previous draw Performed By: #### 3 690, 82377, 61292 #### [facility] [address] [place] [address], [place] MCV Entitic volume (RBC) 78.6 fL Low 82.0-98.0 [facility] Comment on above: Order Comment: No: D o not add to previous draw Performed By: #### 3 6901, 29220, 26005 #### [facility] [address] Nucleated RBC/100 WBC Ratio (Bld) 0 % Normal 0-0 [facility] Comment on above: Order Comment: No: D o not add to previous draw Performed By: #### 3 6901, 00150, 91746 #### [facility] [address] [place] [address], [facility] PLAT CNT 280 10*3/uL Normal 150-400 [facility] Comment on above: Order Comment: No: D o not add to previous draw Performed By: #### 3 690, 05975, 14127 #### [facility] [address] [place] [address], [facility] RBC #/vol (Bld) 4.49 10*6/uL Normal 3.80-5.00 [facility] Comment on above: Order Comment: No: D o not add to previous draw Performed By: #### 3 6901, 22396, 68858 #### [facility] [address] [place] [address], [facility] WBC #/vol (Bld) 7.38 10*3/uL Normal 4.00-10.60 [facility] Comment on above: Order Comment: No: D o not add to previous draw Performed By: #### 3 690, 56664, 99182 #### [facility] [address] Cardiovascular Lab Reporton 04-27-2018 Cardiovascular Lab Report [facility] MR #: [id number] Department of Physician: Martine Roberto Dewayne Mcintsoh M.D. Division of Service Date: 04/26/2018 Cardiology Birthdate: 1960 Adult Cardiovascular Room #: 3AB [id number] [facility] [address] [place] [address] Cardiovascular Laboratory Report INDICATION: The patient is a 57-year-old woman, who is admitted with symptoms of unstable angina. A stress test yesterday showed apical maría elena-infarct ischemia. She was referred for cardiac catheterization. PROCEDURE: Bilateral selective coronary angiography from the right radial access. METHODS: Procedure was explained to the patient with the risks and benefits. She signed informed consent. 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 The right wrist area was prepped and draped in the usual fashion. Tong's test was favorable. Using micropuncture technique, the right radial artery was accessed. A 6-Montenegrin x 11 cm Hydrophilic sheath was advanced. Verapamil was given through the sheath and heparin was administered intravenously. Bilateral selective coronary angiography was then performed using 6-Montenegrin JL3.5 and JR5 diagnostic catheters. Catheters were [...] P/Martine Mcintosh M.D. Date Trans: 04/27/2018 07:59 A/emily [id number] cc: Gianfranco Lau D.O. [address] [facility] [address] Normal [facility] LIVER BATTERYon 04-27-2018 Albumin mass conc 3.4 g/dL Low 3.5-5.7 [facility] Comment on above: Order Comment: No: D o not add to previous draw Performed By: #### 3 6901, 41983, 27964 #### [facility] [address] [place] [address], [place] ALKALINE PHOSPH 103 IU/L Normal 34-104 [facility] Comment on above: Order Comment: No: D o not add to previous draw Performed By: #### 3 4151, 22746, 50870 #### [facility] [address] [place] [address], [place] ALT enzyme act/vol 9 U/L Normal 7-52 [facility] Comment on above: Order Comment: No: D o not add to previous draw Performed By: #### 3 6901, 81011, 36020 #### [facility] [address] [place] [address], [place] AST enzyme act/vol 9 U/L Low 13-39 [facility] Comment on above: Order Comment: No: D o not add to previous draw Performed By: #### 3 6901, 96885, 21833 #### [facility] [address] [place] [address], [place] Bilirubin mass conc 0.2 mg/dL Low 0.3-1.0 [facility] Comment on above: Order Comment: No: D o not add to previous draw Performed By: #### 3 6901, 53208, 46857 #### [facility] [address] [place] [address], [facility] Bilirubin.direct mass conc 0.0 mg/dL Normal 0.0-0.2 [facility] Comment on above: Order Comment: No: D o not add to previous draw Performed By: #### 3 6901, 75394, 13301 #### [facility] [address] [place] [address], [facility] Protein mass conc 6.1 g/dL Normal 6.0-8.3 [facility] Comment on above: Order Comment: No: D o not add to previous draw Performed By: #### 3 6901, 38602, 20682 #### [facility] [address] [place], [place] [id number] [place] [address] MRI BRAIN W WO CONTRASTon MRI BRAIN W WO CONTRAST [facility] Department of Radiology [address] [place] [phone] ======== Patient Name: PATO CORRAL : 1960 Sex: F Age: Race: White Pt. Location: [id number] Patient Status: I Ordered Date: 04/27/2018 10:35:00 [...] findings. Electronically signed by:Ruth Yen. Transcribed by: [email or web address], User Resident: SHANICE MOHR Electronically Signed by: RUTH YEN @ 04/28/2018 03:26 PM I personally read this/these film(s) with this resident Normal [facility] Comment on above: Order Comment: No: D o not add to previous draw POC GLUCOSE LABon 04-27-2018 Glucose mass conc 294 mg/dL High 70-100 [facility] Comment on above: Performed By: #### 3 6901, 98282, 88815 #### [facility] [address] [place] [address], [place] Glucose mass conc 137 mg/dL High 70-100 [facility] Comment on above: Performed By: #### 3 6901, 25345, 37026 #### [facility] [address] [place] [address], [place] Glucose mass conc 172 mg/dL High 70-100 [facility] Comment on above: Performed By: #### 3 6901, 75330, 69774 #### [facility] [address] [place] [address], [place] TYPE AND SCREENon 04-27-2018 ABO INTERPRETATION O Normal [facility] Comment on above: Performed By: #### 3 6901, 05747, 46462 #### [facility] [address] [place] [address], [place] RH INTERPRETATION Positive Normal [facility] Comment on above: Performed By: #### 3 6901, 67749, 45426 #### [facility] [address] [place] [address], [place] UFH HEPARIN ASSAYon 04-27-19 19 UNFRACTIONATED HEPARIN 0.15 IU/mL Critically low 0.30-0.70 [facility] Comment on above: Result Comment: Radha roxaban and Apixaban will interfere with the anti Xa assay used to monitor UFH and LMWH. RESULTS CHECKED AND CALLED. ACCURATELY READ BACK BY GRETTA EDWARDS RN AT 2238 Performed By: #### 3 0121, 56196, 79210 #### [facility] [address] [place] [address], [facility] UNFRACTIONATED HEPARIN <0.10 Critically low 0.30-0.70 [facility] Comment on above: Result Comment: [place] roxaban and Apixaban will interfere with the anti Xa assay used to monitor UFH and LMWH. result calld to RODRIGO MCCLURE RN 1455 Performed By: #### 3 8831, 45912, 85859 #### [facility] [address] [facility] [address], [facility] UNFRACTIONATED HEPARIN <0.10 Critically low 0.30-0.70 [facility] Comment on above: Result Comment: [place] roxaban and Apixaban will interfere with the anti Xa assay used to monitor UFH and LMWH. RESULTS CHECKED AND CALLED. ACCURATELY READ BACK BY MADALYN DAO RN AT 620 Performed By: #### 3 3991, 99452, 38246 #### [facility] [address] [place] [address], [facility] USV ARTERIAL DUPLEX CAROTID BILATERAL COMPLETEon 04-27-2018 USV ARTERIAL DUPLEX CAROTID BILATERAL COMPLETE [facility] Department of Radiology [address] [place] [phone] ======== Patient Name: PATO CORRAL : 1960 Sex: F Age: Race: White Pt. Location: [address] [place] [address] Patient Status: I Ordered Date: 04/27/2018 8:00:00 AM Completed Date: 04/27/2018 10:29 AM Requesting Provider: KAREN RUVALCABA Attending Provider: FEILPE HUGO Report Copy To: Signs & Symptoms: CERVICAL BRUIT History: Patient history not available Comments: R/O Stenosis Exam: USV ARTERIAL DUPLEX CAROTID BILATERAL COMPLETE ======== Final Bilateral Cerebrovascular Duplex Scan Patient: PATO CORRAL : 1960 Study Date: 04/27/2018 08:17:37 Referring Physician: KAREN RUVALCABA Ribbon Hanking Machine Operator: DIANA GARCIA RDMS Ordering Physician: KAREN RUVALCABA Primary Care Physician: GIANFRANCO LAU Patient Location: Inpatient Ordering Diagnosis: CERVICAL BRUIT Indications: CPT Code: 20615 Cerebrovascular Duplex Scan Technique: The carotid arteries, [...] Date: 04/27/2018 08:17:37 Page 2 of 2 [place] [address] Noninvasive Vascular Laboratory Division of Vascular and Endovascular Surgery [facility] [phone] Clinical [phone] Transcribed by: InterfaceUserClarisse Resident: Electronically Signed by: SHIRA BENITES @ 04/30/2018 03:37 PM Normal [facility] Comment on above: Order Comment: No: D o not add to previous draw USV VENOUS LOWER EXTREMITY M APPING BILATERALon 04-27-2018 USV VENOUS LOWER EXTREMITY MAPPING BILATERAL [facility] Department of Radiology [address] [place] [phone] ======== Patient Name: PATO CORRAL : 1960 Sex: F Age: Race: White Pt. Location: [id number] Patient Status: I Ordered Date: 04/27/2018 8:00:00 AM Completed Date: 04/27/2018 10:28 AM Requesting Provider: KAREN RUVALCABA Attending Provider: FELIPE HUGO R Report Copy To: Signs & Symptoms: PERIPHERAL VASCULAR DISEASE History: Patient history not available Comments: R/O OBSTRUCTION, preop CABG Exam: USV VENOUS LOWER EXTREMITY MAPPING BILATERAL ======== Final Bilateral LE Saphenous Vein Mapping Patient: PATO CORRAL : 1960 Study Date: 04/27/2018 09:07:49 Referring Physician: KAREN RUVALCABA Ribbon Hanking Machine Operator: DIANA GARCIA RDMS Ordering Physician: KAREN RUVALCABA Primary Care Physician: GIANFRANCO LAU Patient Location: Inpatient Ordering Diagnosis: PERIPHERAL VASCULAR DISEASE Indications: CPT Code: 13855E LE Saphenous Vein Mapping Technique: The greater [...] Page 2 of 2 [address] [place] [address] Noninvasive Vascular Laboratory Division of Vascular and Endovascular Surgery [facility] [phone] Clinical [phone] Transcribed by: InterfaceUser, Result Resident: Electronically Signed by: SOHAIL TEJEDA @ 04/30/2018 02:46 PM Normal [facility] Comment on above: Order Comment: No: D o not add to previous draw *MRSA/MSSA DNA NASALon 04-26 *MRSA/MSSA DNA NASAL Clinical Report: (D) Specimen: NASAL SWAB Collected: 04/26/2018 17:30 Status: Final Last Updated: 04/27/2018 15:27 MSSA DNA (Final) Negative MRSA DNA (Final) Negative Normal [facility] Comment on above: Performed By: #### 3 6901, 16608, 45962 #### [facility] [address] [place] [address], [facility] APTTon 04-26-2018 aPTT Coag time (Bld) 168.6 s Critically high 25.0-35.0 [facility] Comment on above: Order Comment: No: [...] PRESENCE OF HEPARIN. Performed By: #### 3 131, 79258, 01870 #### [facility] [address] CBC COMPLETE BLOOD COUNTon - Erythrocyte distribution width Ratio (RBC) 14.2 % Normal 11.5-15.0 [facility] Comment on above: Order Comment: No: D o not add to previous draw Performed By: #### 3 690, 97729, 89852 #### [facility] [address] Hematocrit Volume Fraction (Bld) 36.5 % Normal 36.0-45.0 [facility] Comment on above: Order Comment: No: D o not add to previous draw Performed By: #### 3 079, 78020, 67183 #### [facility] [address] [place] [address], [facility] Hemoglobin mass conc (Bld) 11.6 g/dL Low 12.0-15.0 [facility] Comment on above: Order Comment: No: D o not add to previous draw Performed By: #### 3 690, 11353, 92374 #### [facility] [address] [place] [address], [facility] MCH Entitic mass (RBC) 25.1 pg Low 27.0-33.0 [facility] Comment on above: Order Comment: No: D o not add to previous draw Performed By: #### 3 015, 22931, 20909 #### [facility] [address] MCHC mass conc (RBC) 31.8 g/dL Low 32.0-35.0 [facility] Comment on above: Order Comment: No: D o not add to previous draw Performed By: #### 3 690, 04037, 74421 #### [facility] [address] [place] [address], [facility] MCV Entitic volume (RBC) 79.0 fL Low 82.0-98.0 [facility] Comment on above: Order Comment: No: D o not add to previous draw Performed By: #### 3 6900, 78729, 49702 #### [facility] [address] [place] [address], [facility] Nucleated RBC/100 WBC Ratio (Bld) 0 % Normal 0-0 [facility] Comment on above: Order Comment: No: D o not add to previous draw Performed By: #### 3 6900, , 55090 #### [facility] [address] [place] [address], [facility] PLAT CNT 289 10*3/uL Normal 150-400 [facility] Comment on above: Order Comment: No: D o not add to previous draw Performed By: #### 3 6900, 42649, 98435 #### [facility] [address] [place] [address], [facility] RBC #/vol (Bld) 4.62 10*6/uL Normal 3.80-5.00 [facility] Comment on above: Order Comment: No: D o not add to previous draw Performed By: #### 3 6900, 30704, 86200 #### [facility] [address] [facility] [place] [address], [facility] WBC #/vol (Bld) 7.32 10*3/uL Normal 4.00-10.60 [facility] Comment on above: Order Comment: No: D o not add to previous draw Performed By: #### 3 6900, 14388, 08779 #### [facility] [address] [place] [address], [facility] Erythrocyte distribution width Ratio (RBC) 14.4 % Normal 11.5-15.0 [facility] Comment on above: Order Comment: No: D o not add to previous draw Performed By: #### 3 690, 36094, 41740 #### [facility] [address] [place] [address], [facility] Hematocrit Volume Fraction (Bld) 35.6 % Low 36.0-45.0 [facility] Comment on above: Order Comment: No: D o not add to previous draw Performed By: #### 3 6900, , 20045 #### [facility] [address] [place] [address], [facility] Hemoglobin mass conc (Bld) 11.7 g/dL Low 12.0-15.0 [facility] Comment on above: Order Comment: No: D o not add to previous draw Performed By: #### 3 6900, , 47162 #### [facility] [address] [place] [address], [facility] MCH Entitic mass (RBC) 25.7 pg Low 27.0-33.0 [facility] Comment on above: Order Comment: No: D o not add to previous draw Performed By: #### 3 6900, , 39954 #### [facility] [address] [place] [address], [facility] MCHC mass conc (RBC) 32.9 g/dL Normal 32.0-35.0 [facility] Comment on above: Order Comment: No: D o not add to previous draw Performed By: #### 3 6900, 28569, 09676 #### [facility] [address] [place] [address], [facility] MCV Entitic volume (RBC) 78.1 fL Low 82.0-98.0 [facility] Comment on above: Order Comment: No: D o not add to previous draw Performed By: #### 3 6901, 13493, 11529 #### [facility] [address] [facility] [address] Nucleated RBC/100 WBC Ratio (Bld) 0 % Normal 0-0 [facility] Comment on above: Order Comment: No: D o not add to previous draw Performed By: #### 3 6901, 18785, 66281 #### [facility] [address] [facility] [place] [place] [address], [facility] PLAT CNT 284 10*3/uL Normal 150-400 [facility] Comment on above: Order Comment: No: D o not add to previous draw Performed By: #### 3 6901, 89136, 74924 #### [facility] [address] RBC #/vol (Bld) 4.56 10*6/uL Normal 3.80-5.00 [facility] Comment on above: Order Comment: No: D o not add to previous draw Performed By: #### 3 6901, 08626, 31580 #### [facility] [address] [facility] [place] [address], [facility] WBC #/vol (Bld) 7.95 10*3/uL Normal 4.00-10.60 [facility] Comment on above: Order Comment: No: D o not add to previous draw Performed By: #### 3 6901, 77015, 64671 #### [facility] [address] CHEST AND LATERALon 04-26-19 19 CHEST AND LATERAL [facility] Department of Radiology [address] [place] [phone] ======== Patient Name: PATO CORRAL : 1960 Sex: F Age: Race: White Pt. Location: [id number] Patient Status: I Ordered Date: 04/25/2018 8:55:00 PM Completed Date: 04/25/2018 10:36 PM Requesting Provider: ART CEBALLOS Attending Provider: FELIPE HUGO Report Copy To: Signs & Symptoms: Unstable [...] chest. Electronically signed by:Antwon Groves. Transcribed by: [email or web address], User Resident: Electronically Signed by: ANTWON GROVES @ 04/26/2018 08:21 AM Normal [facility] Comment on above: Order Comment: R/O C ardiomegaly, when patient is stable CT BRAIN WO CONTRASTon 04-26 CT BRAIN WO CONTRAST [facility] Department of Radiology [address] [place] [phone] ======== Patient Name: PATO CORRAL : 1960 Sex: F Age: Race: White Pt. Location: [id number] Patient Status: I Ordered Date: 04/26/2018 5:25:00 [...] findings. Electronically signed by:Ruth Yen. Transcribed by: [email or web address], User Resident: FERN JOSEPH Electronically Signed by: RUTH YEN @ 04/27/2018 03:17 PM I personally read this/these film(s) with this resident Normal [facility] Comment on above: Order Comment: No: D o not add to previous draw LIPID PROFILEon 04-26-2018 Cholesterol in HDL mass conc 39 mg/dL Normal 23-92 [facility] Comment on above: Result Comment: Slig ht variation in normal range could be due to gender and/or age. HDL CHOLESTEROL REFERENCE RANGE: 20 years and older Cardiovascular Risk > or =60 mg/dL Desirable 40 TO 59 mg/dL Low Risk <40 mg/dL High Risk Performed By: #### 3 6901, 29151, 09336 #### [facility] [address] [place] [address], [place] Cholesterol in LDL mass conc 54 mg/dL Normal 0-130 [facility] Comment on above: Result Comment: LDL IS A CALCULATION LDL IS ONLY VALID IF THE TRIG IS LESS THAN 400. Performed By: #### 3 6901, 15404, 17517 #### [facility] [address] [place] [address], [place] Cholesterol mass conc 279 mg/dL High 120-200 [facility] Comment on above: Result Comment: CHOL ESTEROL REFERENCE RANGE: 20 YEARS AND OLDER CARDIOVASCULAR RISK Less than 200 mg/dl Low Risk 200 to 239 mg/dl Borderline Risk 240 mg/dl and greater High Risk Performed By: #### 3 6901, 48664, 40331 #### [facility] [address] [place] [address], [place] Cholesterol.total/C holesterol in HDL mass ratio 7.2 {ratio} High .0-4.5 [facility] Comment on above: Performed By: #### 3 6901, 16106, 32218 #### [facility] [address] [place] [address], [place] NON-HDL CHOLESTEROL 240 mg/dL Normal [facility] Comment on above: Performed By: #### 3 6901, 27650, 02853 #### [facility] [address] [place] [address], [facility] Triglyceride mass conc 928 mg/dL High 40-149 [facility] Comment on above: Result Comment: TRIG LYCERIDE REFERENCE RANGE: 20 YEARS AND OLDER CARDIOVASCULAR RISK LESS THAN 150 mg/dl LOW RISK 150 TO 199 mg/dl BORDERLINE RISK 200 mg/dl AND GREATER HIGH RISK Performed By: #### 3 6901, 68343, 33545 #### [facility] [address] [place] [address], [place] VLDL CHOL 186 mg/dL High 0-40 [facility] Comment on above: Performed By: #### 3 6901, 26160, 43140 #### [facility] [address] [place] [address], [facility] POC GLUCOSE LABon 04-26-2018 Glucose mass conc 190 mg/dL High 70-100 [facility] Comment on above: Performed By: #### 3 6901, 85288, 63319 #### [facility] [address] [place] [address], [facility] Glucose mass conc 141 mg/dL High 70-100 [facility] Comment on above: Performed By: #### 3 6901, 45431, 99544 #### [facility] [address] [place] [address], [place] Glucose mass conc 154 mg/dL High 70-100 [facility] Comment on above: Performed By: #### 3 6901, 96521, 76325 #### [facility] [address] [place] [address], [place] Glucose mass conc 164 mg/dL High 70-100 [facility] Comment on above: Performed By: #### 3 6901, 16258, 04009 #### [facility] [address] [place] [address], [place] PROTHROMBIN TIMEon 9 INR Coag RelTime (PPP) 1.01 {INR} Normal 0.91-1.16 [facility] Comment on above: Order Comment: No: [...] CHEST 1995;108:231S-246S. Performed By: #### 3 6901, 81150, 64434 #### [facility] [address] Prothrombin time (PT) Coag time (PPP) 13.3 s Normal 12.3-14.8 [facility] Comment on above: Order Comment: No: D o not add to previous draw Result Comment: ALL RESULTS MUST BE INTERPRETED WITH RESPECT TO BLOOD DRAWING ARTIFACT OR DILUTION ERROR OF ANTICOAGULANT AT THE TIME OF SAMPLING. Performed By: #### 3 6901, 01905, 95331 #### [facility] [address] TROPONIN-Ion 04-26-2018 Troponin I.cardiac mass conc 0.01 ng/mL Normal 0.00-0.04 [facility] Comment on above: Order Comment: No: D o not add to previous draw Result Comment: REFE RENCE RANGES: 0.00 - 0.04 ng/ml NORMAL 0.05 - 0.50 ng/ml INDETERMINATE > 0.50 ng/ml CONSISTENT WITH AN M.I. Performed By: #### 3 826, 79606, 16475 #### [facility] [address] [place] [address], [facility] Troponin I.cardiac mass conc 0.01 ng/mL Normal 0.00-0.04 [facility] Comment on above: Order Comment: No: D o not add to previous draw Result Comment: REFE RENCE RANGES: 0.00 - 0.04 ng/ml NORMAL 0.05 - 0.50 ng/ml INDETERMINATE > 0.50 ng/ml CONSISTENT WITH AN M.I. Performed By: #### 3 632, 30967, 24771 #### [facility] [address] [facility] [place] [address], [facility] UFH HEPARIN ASSAYon 04-26-19 19 UNFRACTIONATED HEPARIN <0.10 Critically low 0.30-0.70 [facility] Comment on above: Result Comment: Radha roxaban and Apixaban will interfere with the anti Xa assay used to monitor UFH and LMWH. RESULTS CHECKED AND CALLED. ACCURATELY READ BACK BY MADALYN HOLLIDAY RN AT 21:45 Performed By: #### 3 6263, 39693, 79968 #### [facility] [address] [facility] [place] [address], [facility] UNFRACTIONATED HEPARIN >1.00 Critically high 0.30-0.70 [facility] Comment on above: Order Comment: No: D o not add to previous draw Result Comment: Radha roxaban and Apixaban will interfere with the anti Xa assay used to monitor UFH and LMWH. UFH = 1.12 UFH added per protocol RESULTS CHECKED AND CALLED. ACCURATELY READ BACK BY ANDREAS BERNARD RN at 16:26 Performed By: #### 3 5007, 49265, 84075 #### [facility] [address] [place] [address], [facility] UNFRACTIONATED HEPARIN 0.14 IU/mL Critically low 0.30-0.70 [facility] Comment on above: Result Comment: Radha roxaban and Apixaban will interfere with the anti Xa assay used to monitor UFH and LMWH. Results called. Accurately read back by ANDREAS BERNARD RN AT 0800 Performed By: #### 3 6901, 38141, 52468 #### [facility] [address] [place] [address], [facility] APTTon 04-25-2018 aPTT Coag time (Bld) 26.8 s Normal 25.0-35.0 [facility] Comment on above: Order Comment: No: [...] PURPOSE. Performed By: #### 1 0054 #### [facility] [address] [place] [address], [facility] BASIC METABOLIC PANELon 04-15 Calcium mass conc 9.1 mg/dL Normal 8.6-10.3 [facility] Comment on above: Order Comment: No: D o not add to previous draw Performed By: #### 1 0054 #### [facility] [address] [place] [address], [facility] Chloride molar conc 100 mmol/L Normal 98-107 [facility] Comment on above: Order Comment: No: D o not add to previous draw Performed By: #### 1 0054 #### [facility] [address] [place] [address], [facility] CO2 molar conc 24 mmol/L Normal 21-31 [facility] Comment on above: Order Comment: No: D o not add to previous draw Performed By: #### 1 0054 #### [facility] [address] [place] [id number], [facility] Creatinine mass conc 0.70 mg/dL Normal 0.60-1.20 [facility] Comment on above: Order Comment: No: D o not add to previous draw Performed By: #### 1 0054 #### [facility] [address] [place] [address], [place] GFR/1.73 sq M predicted among blacks MDRD vol rate/area (S/P/Bld) mL/min/{1.73_m2} Normal >60 [facility] Comment on above: Order Comment: No: D o not add to previous draw Performed By: #### 1 0054 #### [facility] [address] [place] [address], [facility] GFR/1.73 sq M predicted among non-blacks MDRD vol rate/area (S/P/Bld) mL/min/{1.73_m2} Normal >60 [facility] Comment on above: Order Comment: No: D o not add to previous draw Performed By: #### 1 0054 #### [facility] [address] [place] [address], [facility] Glucose mass conc 157 mg/dL High 70-100 [facility] Comment on above: Order Comment: No: D o not add to previous draw Performed By: #### 1 0054 #### [facility] [address] [place] [address], [place] Potassium molar conc 3.5 mmol/L Normal 3.5-5.1 [facility] Comment on above: Order Comment: No: D o not add to previous draw Performed By: #### 1 0054 #### [facility] [address] [place] [address], [place] Sodium molar conc 134 mmol/L Low 136-145 [facility] Comment on above: Order Comment: No: D o not add to previous draw Performed By: #### 1 0054 #### [facility] [address] [place] [address], [place] Urea nitrogen mass conc 10 mg/dL Normal 7-25 [facility] Comment on above: Order Comment: No: D o not add to previous draw Performed By: #### 1 0054 #### [facility] [address] CBC W/DIFFon 04-25-2018 ABS BASOPHILS 0.0 10*3/uL Normal 0.0-0.2 [facility] Comment on above: Performed By: #### 1 0054 #### [facility] [address] [facility]. [address] ABS IMM GRANS 0.0 10*3/uL Normal 0.0-0.2 [facility] Comment on above: Performed By: #### 1 0054 #### [facility] [address] ABS NEUTROPHILS 5.2 10*3/uL Normal 1.6-7.6 [facility] Comment on above: Performed By: #### 1 0054 #### [facility] [address] Basophils #/vol (Bld) 0.4 % Normal 0.0-1.0 [facility] Comment on above: Performed By: #### 1 0054 #### [facility] [address] [facility]. [address] Eosinophils #/vol (Bld) 0.4 10*3/uL Normal 0.0-0.5 [facility] Comment on above: Performed By: #### 1 0054 #### [facility] [address] [place] [address], [facility] Eosinophils/100 WBC (Bld) 3.7 % Normal 0.0-6.0 [facility] Comment on above: Performed By: #### 1 0054 #### [facility] [address] Erythrocyte distribution width Ratio (RBC) 14.4 % Normal 11.5-15.0 [facility] Comment on above: Performed By: #### 1 0054 #### [facility] [address] [facility]. [address] Hematocrit Volume Fraction (Bld) 35.9 % Low 36.0-45.0 [facility] Comment on above: Performed By: #### 1 0054 #### [facility] [address] Hemoglobin mass conc (Bld) 11.7 g/dL Low 12.0-15.0 [facility] Comment on above: Performed By: #### 1 0054 #### [facility] [address] IMMATURE GRANS 0.2 % Normal 0.0-1.0 [facility] Comment on above: Performed By: #### 1 0054 #### [facility] [address] Lymphocytes #/vol (Bld) 3.4 10*3/uL Normal 1.2-4.0 [facility] Comment on above: Performed By: #### 1 0054 #### [facility] [address] Lymphocytes/100 WBC (Bld) 35.1 % Normal 20.0-45.0 [facility] Comment on above: Performed By: #### 1 0054 #### [facility] [address] MCH Entitic mass (RBC) 25.2 pg Low 27.0-33.0 [facility] Comment on above: Performed By: #### 1 0054 #### [facility] [address] [place] [address], [facility] MCHC mass conc (RBC) 32.6 g/dL Normal 32.0-35.0 [facility] Comment on above: Performed By: #### 1 0054 #### [facility] [address] MCV Entitic volume (RBC) 77.4 fL Low 82.0-98.0 [facility] Comment on above: Performed By: #### 1 0054 #### [facility] [address] Monocytes #/vol (Bld) 0.8 10*3/uL Normal 0.1-1.0 [facility] Comment on above: Performed By: #### 1 0054 #### [facility] [address] MONOS 7.7 % Normal 5.0-12.0 [facility] Comment on above: Performed By: #### 1 0054 #### [facility] [address] Neutrophils/100 WBC (Bld) 52.9 % Normal 40.0-72.0 [facility] Comment on above: Performed By: #### 1 0054 #### [facility] [address] Nucleated RBC/100 WBC Ratio (Bld) 0 % Normal 0-0 [facility] Comment on above: Performed By: #### 1 0054 #### [facility] [address] PLAT CNT 277 10*3/uL Normal 150-400 [facility] Comment on above: Performed By: #### 1 0054 #### [facility] [address] RBC #/vol (Bld) 4.64 10*6/uL Normal 3.80-5.00 [facility] Comment on above: Performed By: #### 1 0054 #### [facility] [address] WBC #/vol (Bld) 9.81 10*3/uL Normal 4.00-10.60 [facility] Comment on above: Performed By: #### 1 0054 #### [facility] [address] MAGNESIUM BLOODon 04-25-2018 Magnesium mass conc 1.7 mg/dL Low 1.9-2.7 [facility] Comment on above: Order Comment: No: D o not add to previous draw Performed By: #### 1 0054 #### [facility] [address] POC GLUCOSE LABon 04-25-2018 Glucose mass conc 125 mg/dL High 70-100 [facility] Comment on above: Performed By: #### 3 6901, 16987, 25290 #### [facility] [address] PROTHROMBIN TIMEon 9 INR Coag RelTime (PPP) 0.95 {INR} Normal 0.91-1.16 [facility] Comment on above: Order Comment: No: [...] 1995;108:[id number]. Performed By: #### 1 0054 #### [facility] [address] [facility]. [address] Prothrombin time (PT) Coag time (PPP) 12.7 s Normal 12.3-14.8 [facility] Comment on above: Order Comment: No: D o not add to previous draw Result Comment: ALL RESULTS MUST BE INTERPRETED WITH RESPECT TO BLOOD DRAWING ARTIFACT OR DILUTION ERROR OF ANTICOAGULANT AT THE TIME OF SAMPLING. Performed By: #### 1 0054 #### [facility] [address] TROPONIN-Ion 04-25-2018 Troponin I.cardiac mass conc 0.01 ng/mL Normal 0.00-0.04 [facility] Comment on above: Order Comment: No: D o not add to previous draw Result Comment: REFE RENCE RANGES: 0.00 - 0.04 ng/ml NORMAL 0.05 - 0.50 ng/ml INDETERMINATE > 0.50 ng/ml CONSISTENT WITH AN M.I. Performed By: #### 1 0054 #### [facility] [address] TSH3 WITH REFLEXon 9 T4 free mass conc 0.63 ng/dL Low 0.71-1.85 [facility] Comment on above: Performed By: #### 1 0054 #### [facility] [address] TSH 3RD GENERATION 0.85 uIU/mL Normal 0.34-5.60 [facility] Comment on above: Performed By: #### 1 0054 #### [facility] [address] POC GLUCOSE LABon 03-22-2018 Glucose mass conc 193 mg/dL High 70-100 [facility] Comment on above: Performed By: #### 1 0054 #### [facility] [address] [facility]. [address] Glucose mass conc 174 mg/dL High 70-100 [facility] Comment on above: Performed By: #### 1 0054 #### [facility] [address] [facility]. [address] CBC W/DIFFon 03-21-2018 ABS BASOPHILS 0.0 10*3/uL Normal 0.0-0.2 [facility] Comment on above: Order Comment: No: D o not add to previous draw Performed By: #### 5 0103 #### [facility] [address] ABS IMM GRANS 0.0 10*3/uL Normal 0.0-0.2 [facility] Comment on above: Order Comment: No: D o not add to previous draw Performed By: #### 5 0103 #### [facility] [address] ABS NEUTROPHILS 2.6 10*3/uL Normal 1.6-7.6 [facility] Comment on above: Order Comment: No: D o not add to previous draw Performed By: #### 5 0103 #### [facility] [address] [facility]. [address] Basophils #/vol (Bld) 0.4 % Normal 0.0-1.0 [facility] Comment on above: Order Comment: No: D o not add to previous draw Performed By: #### 5 0103 #### [facility] [address] [facility]. [address] Eosinophils #/vol (Bld) 0.3 10*3/uL Normal 0.0-0.5 [facility] Comment on above: Order Comment: No: D o not add to previous draw Performed By: #### 5 0103 #### [facility] [address] [facility] [place] [address], [facility] Eosinophils/100 WBC (Bld) 5.2 % Normal 0.0-6.0 [facility] Comment on above: Order Comment: No: D o not add to previous draw Performed By: #### 5 0103 #### [facility] [address] [place] [address], [facility] Erythrocyte distribution width Ratio (RBC) 13.8 % Normal 11.5-15.0 [facility] Comment on above: Order Comment: No: D o not add to previous draw Performed By: #### 5 0103 #### [facility] [address] [place] [address], [facility] Hematocrit Volume Fraction (Bld) 36.1 % Normal 36.0-45.0 [facility] Comment on above: Order Comment: No: D o not add to previous draw Performed By: #### 5 0103 #### [facility] [address] Hemoglobin mass conc (Bld) 11.5 g/dL Low 12.0-15.0 [facility] Comment on above: Order Comment: No: D o not add to previous draw Performed By: #### 5 0103 #### [facility] [address] [place] [address], [facility] IMMATURE GRANS 0.4 % Normal 0.0-1.0 [facility] Comment on above: Order Comment: No: D o not add to previous draw Performed By: #### 5 0103 #### [facility] [address] [place] [address], [facility] Lymphocytes #/vol (Bld) 1.6 10*3/uL Normal 1.2-4.0 [facility] Comment on above: Order Comment: No: D o not add to previous draw Performed By: #### 5 0103 #### [facility] [address] [place] [address], [facility] Lymphocytes/100 WBC (Bld) 31.6 % Normal 20.0-45.0 [facility] Comment on above: Order Comment: No: D o not add to previous draw Performed By: #### 5 0103 #### [facility] [address] [facility] [address] MCH Entitic mass (RBC) 25.7 pg Low 27.0-33.0 [facility] Comment on above: Order Comment: No: D o not add to previous draw Performed By: #### 5 0103 #### [facility] [address] [facility] MCHC mass conc (RBC) 31.9 g/dL Low 32.0-35.0 [facility] Comment on above: Order Comment: No: D o not add to previous draw Performed By: #### 5 0103 #### [facility] [address] MCV Entitic volume (RBC) 80.6 fL Low 82.0-98.0 [facility] Comment on above: Order Comment: No: D o not add to previous draw Performed By: #### 5 0103 #### [facility] [address] Monocytes #/vol (Bld) 0.5 10*3/uL Normal 0.1-1.0 [facility] Comment on above: Order Comment: No: D o not add to previous draw Performed By: #### 5 0103 #### [facility] [address] MONOS 9.3 % Normal 5.0-12.0 [facility] Comment on above: Order Comment: No: D o not add to previous draw Performed By: #### 5 0103 #### [facility] [address] Neutrophils/100 WBC (Bld) 53.1 % Normal 40.0-72.0 [facility] Comment on above: Order Comment: No: D o not add to previous draw Performed By: #### 5 0103 #### [facility] [address] [place] [address], [facility] Nucleated RBC/100 WBC Ratio (Bld) 0 % Normal 0-0 [facility] Comment on above: Order Comment: No: D o not add to previous draw Performed By: #### 5 0103 #### [facility] [address] [place] [address], [facility] PLAT CNT 204 10*3/uL Normal 150-400 [facility] Comment on above: Order Comment: No: D o not add to previous draw Performed By: #### 5 0103 #### [facility] [address] [place] [address], [facility] RBC #/vol (Bld) 4.48 10*6/uL Normal 3.80-5.00 [facility] Comment on above: Order Comment: No: D o not add to previous draw Performed By: #### 5 0103 #### [facility] [address] [place] [address], [facility] WBC #/vol (Bld) 4.97 10*3/uL Normal 4.00-10.60 [facility] Comment on above: Order Comment: No: D o not add to previous draw Performed By: #### 5 0103 #### [facility] [address] [place] [address], [facility] HEMOGLOBIN A1Con 03-21-2018 Hemoglobin A1c/Hemoglobin.tota l mass fraction (Bld) 6.8 % High 4.0-6.0 [facility] Comment on above: Order Comment: No: D o not add to previous draw Performed By: #### 5 0103 #### [facility] [address] [place] [address], [facility] Hemoglobin A1c/Hemoglobin.tota l mass fraction (Bld) 148 mg/dL High 70-126 [facility] Comment on above: Order Comment: No: D o not add to previous draw Performed By: #### 5 0103 #### [facility] [address] [place] [address], [facility] MAGNESIUM BLOODon 03-21-2018 Magnesium mass conc 1.8 mg/dL Low 1.9-2.7 [facility] Comment on above: Performed By: #### 5 0103 #### [facility] [address] [place] [address], [facility] POC GLUCOSE LABon 03-21-2018 Glucose mass conc 186 mg/dL High 70-100 [facility] Comment on above: Performed By: #### 1 0054 #### [facility] [address] Glucose mass conc 129 mg/dL High 70-100 [facility] Comment on above: Performed By: #### 5 0103 #### [facility] [address] Glucose mass conc 179 mg/dL High 70-100 [facility] Comment on above: Performed By: #### 5 0103 #### [facility] [address] Glucose mass conc 159 mg/dL High 70-100 [facility] Comment on above: Performed By: #### 5 0103 #### [facility] [address] TROPONIN-Ion 03-21-2018 Troponin I.cardiac mass conc 0.02 ng/mL Normal 0.00-0.04 [facility] Comment on above: Order Comment: No: D o not add to previous draw Result Comment: REFE RENCE RANGES: 0.00 - 0.04 ng/ml NORMAL 0.05 - 0.50 ng/ml INDETERMINATE > 0.50 ng/ml CONSISTENT WITH AN M.I. Performed By: #### 5 0103 #### [facility] [address] *BLOOD CULTUREon 03-20-2018 Bacteria identified Cx Nom (Bld) Clinical Report: (D) Specimen: BLOOD CULTURE Collected: 03/20/2018 11:20 Status: Final Last Updated: 03/26/2018 06:07 (1) x2 CULT RES (Final) No Growth Day 5 Normal [facility] Comment on above: Order Comment: No: D o not add to previous draw Performed By: #### 5 0103 #### [facility] [address] *RAPID FLU AANDB BY MOLECULA Ian 03-20-2018 *RAPID FLU AANDB BY MOLECULAR Clinical Report: (D) Specimen: NASAL SWAB Collected: 03/20/2018 16:00 Status: Final Last Updated: 03/20/2018 16:52 FLUA RNA (Final) Negative FLUB RNA (Final) Negative Normal [facility] Comment on above: Performed By: #### 3 1018 #### [facility] [address] BNP (B-TYPE NATRIURETIC PEPT ALICE)on 03-20-2018 Natriuretic peptide B mass conc (Bld) 40 pg/mL Normal 0-100 [facility] Comment on above: Order Comment: No: D o not add to previous draw Result Comment: Give n the appropriate clinical setting a BNP result of >100 pg/mL indicates congestive heart failure. Performed By: #### 8 [id number] #### [facility] [address] CBC W/DIFFon 03-20-2018 ABS BASOPHILS 0.0 10*3/uL Normal 0.0-0.2 [facility] Comment on above: Order Comment: No: D o not add to previous draw Performed By: #### 5 0103 #### [facility] [address] ABS IMM GRANS 0.1 10*3/uL Normal 0.0-0.2 [facility] Comment on above: Order Comment: No: D o not add to previous draw Performed By: #### 5 0103 #### [facility] [address] [place] [id number], [facility] ABS NEUTROPHILS 5.7 10*3/uL Normal 1.6-7.6 [facility] Comment on above: Order Comment: No: D o not add to previous draw Performed By: #### 5 0103 #### [facility] [address] [place] [address], [facility] Basophils #/vol (Bld) 0.3 % Normal 0.0-1.0 [facility] Comment on above: Order Comment: No: D o not add to previous draw Performed By: #### 5 0103 #### [facility] [address] [place] [id number], [facility] Eosinophils #/vol (Bld) 0.1 10*3/uL Normal 0.0-0.5 [facility] Comment on above: Order Comment: No: D o not add to previous draw Performed By: #### 5 0103 #### [facility] [address] [place] [id number], [facility] Eosinophils/100 WBC (Bld) 1.4 % Normal 0.0-6.0 [facility] Comment on above: Order Comment: No: D o not add to previous draw Performed By: #### 5 0103 #### [facility] [address] [place] [address], [facility] Erythrocyte distribution width Ratio (RBC) 14.0 % Normal 11.5-15.0 [facility] Comment on above: Order Comment: No: D o not add to previous draw Performed By: #### 5 0103 #### [facility] [address] [place] [id number], [facility] Hematocrit Volume Fraction (Bld) 36.4 % Normal 36.0-45.0 [facility] Comment on above: Order Comment: No: D o not add to previous draw Performed By: #### 5 0103 #### [facility] [address] [facility] [address], [facility] Hemoglobin mass conc (Bld) 11.6 g/dL Low 12.0-15.0 [facility] Comment on above: Order Comment: No: D o not add to previous draw Performed By: #### 5 0103 #### [facility] [address] [place] [address], [facility] IMMATURE GRANS 0.7 % Normal 0.0-1.0 [facility] Comment on above: Order Comment: No: D o not add to previous draw Performed By: #### 5 0103 #### [facility] [address] [facility] [place] [address], [facility] Lymphocytes #/vol (Bld) 1.1 10*3/uL Low 1.2-4.0 [facility] Comment on above: Order Comment: No: D o not add to previous draw Performed By: #### 5 0103 #### [facility] [address] [facility] [place] [address], [facility] Lymphocytes/100 WBC (Bld) 14.5 % Low 20.0-45.0 [facility] Comment on above: Order Comment: No: D o not add to previous draw Performed By: #### 5 0103 #### [facility] [address] [facility] [place] [address], [facility] MCH Entitic mass (RBC) 25.7 pg Low 27.0-33.0 [facility] Comment on above: Order Comment: No: D o not add to previous draw Performed By: #### 5 0103 #### [facility] [address] [facility] [place] [address], [facility] MCHC mass conc (RBC) 31.9 g/dL Low 32.0-35.0 [facility] Comment on above: Order Comment: No: D o not add to previous draw Performed By: #### 5 0103 #### [facility] [address] MCV Entitic volume (RBC) 80.5 fL Low 82.0-98.0 [facility] Comment on above: Order Comment: No: D o not add to previous draw Performed By: #### 5 0103 #### [facility] [address] [place] [id number], [facility] Monocytes #/vol (Bld) 0.4 10*3/uL Normal 0.1-1.0 [facility] Comment on above: Order Comment: No: D o not add to previous draw Performed By: #### 5 0103 #### [facility] [address] [facility] [place] [address], [facility] MONOS 5.0 % Normal 5.0-12.0 [facility] Comment on above: Order Comment: No: D o not add to previous draw Performed By: #### 5 3 #### [facility] [address] [facility] [place] [address], [facility] Neutrophils/100 WBC (Bld) 78.1 % High 40.0-72.0 [facility] Comment on above: Order Comment: No: D o not add to previous draw Performed By: #### 5 0103 #### [facility] [address] [facility] [place] [address], [facility] Nucleated RBC/100 WBC Ratio (Bld) 0 % Normal 0-0 [facility] Comment on above: Order Comment: No: D o not add to previous draw Performed By: #### 5 0103 #### [facility] [address] [facility] [place] [address], [facility] PLAT CNT 230 10*3/uL Normal 150-400 [facility] Comment on above: Order Comment: No: D o not add to previous draw Performed By: #### 5 3 #### [facility] [address] [place] [id number], [facility] RBC #/vol (Bld) 4.52 10*6/uL Normal 3.80-5.00 [facility] Comment on above: Order Comment: No: D o not add to previous draw Performed By: #### 5 0103 #### [facility] [address] [place] [address], [facility] WBC #/vol (Bld) 7.25 10*3/uL Normal 4.00-10.60 [facility] Comment on above: Order Comment: No: D o not add to previous draw Performed By: #### 5 0103 #### [facility] [address] [place] [address], [facility] COMP METABOLIC PANELon 03-20 Albumin mass conc 3.4 g/dL Low 3.5-5.7 [facility] Comment on above: Order Comment: No: D o not add to previous draw Performed By: #### 3 6901, 91617, 92018 #### [facility] [address] [place] [address], [facility] ALKALINE PHOSPH 72 IU/L Normal 34-104 [facility] Comment on above: Order Comment: No: D o not add to previous draw Performed By: #### 3 6901, 85113, 21473 #### [facility] [address] [place] [address], [facility] ALT enzyme act/vol 13 U/L Normal 7-52 [facility] Comment on above: Order Comment: No: D o not add to previous draw Performed By: #### 3 6901, 81384, 20462 #### [facility] [address] [place] [address], [place] AST enzyme act/vol 10 U/L Low 13-39 [facility] Comment on above: Order Comment: No: D o not add to previous draw Performed By: #### 3 6901, 84339, 52387 #### [facility] [address] [place] [address], [facility] Bilirubin mass conc 0.2 mg/dL Low 0.3-1.0 [facility] Comment on above: Order Comment: No: D o not add to previous draw Performed By: #### 3 6901, 88272, 81939 #### [facility] [address] [place] [address], [place] Calcium mass conc 8.4 mg/dL Low 8.6-10.3 [facility] Comment on above: Order Comment: No: D o not add to previous draw Performed By: #### 3 6901, 32577, 10406 #### [facility] [address] [place] [address], [place] Chloride molar conc 102 mmol/L Normal 98-107 [facility] Comment on above: Order Comment: No: D o not add to previous draw Performed By: #### 3 6901, 96566, 89021 #### [facility] [address] [place] [address], [place] CO2 molar conc 23 mmol/L Normal 21-31 [facility] Comment on above: Order Comment: No: D o not add to previous draw Performed By: #### 3 6901, 56110, 88034 #### [facility] [address] [place] [address], [place] Creatinine mass conc 0.83 mg/dL Normal 0.60-1.20 [facility] Comment on above: Order Comment: No: D o not add to previous draw Performed By: #### 3 3781, 88386, 41835 #### [facility] [address] [place] [address], [place] GFR/1.73 sq M predicted among blacks MDRD vol rate/area (S/P/Bld) mL/min/{1.73_m2} Normal >60 [facility] Comment on above: Order Comment: No: D o not add to previous draw Performed By: #### 3 6901, 27289, 12412 #### [facility] [address] [place] [address], [place] GFR/1.73 sq M predicted among non-blacks MDRD vol rate/area (S/P/Bld) mL/min/{1.73_m2} Normal >60 [facility] Comment on above: Order Comment: No: D o not add to previous draw Performed By: #### 3 6901, 29417, 94952 #### [facility] [address] [place] [address], [place] Glucose mass conc 144 mg/dL High 70-100 [facility] Comment on above: Order Comment: No: D o not add to previous draw Performed By: #### 3 [id number], [id number] #### [facility] [address] [place] [address], [place] Potassium molar conc 3.7 mmol/L Normal 3.5-5.1 [facility] Comment on above: Order Comment: No: D o not add to previous draw Performed By: #### 3 [id number], [id number], [id number] #### [facility] [address] [place] [address], [place] Protein mass conc 6.2 g/dL Normal 6.0-8.3 [facility] Comment on above: Order Comment: No: D o not add to previous draw Performed By: #### 3 [id number], [id number], [id number] #### [facility] [address] [place] [address], [place] Sodium molar conc 135 mmol/L Low 136-145 [facility] Comment on above: Order Comment: No: D o not add to previous draw Performed By: #### 3 [id number], [id number], [id number] #### [facility] [address] [place] [address], [place] Urea nitrogen mass conc 17 mg/dL Normal 7-25 [facility] Comment on above: Order Comment: No: D o not add to previous draw Performed By: #### 3 [id number], [id number], [id number] #### [facility] [address] [place] [address], [facility] LACTATE BLOODon 03-20-2018 Lactate molar conc 1.3 mmol/L Normal 0.5-2.2 [facility] Comment on above: Order Comment: No: D o not add to previous draw Performed By: #### 1 0054 #### [facility] [address] [place] [address], [facility] LIPASE BLOODon 03-20-2018 Lipase enzyme act/vol 18 Units/L Normal 11-82 [facility] Comment on above: Performed By: #### 3 [id number], [id number], [id number] #### [facility] [address] POC GLUCOSE LABon 03-20-2018 Glucose mass conc 219 mg/dL High 70-100 [facility] Comment on above: Performed By: #### 5 0103 #### [facility] [address] [place] [address], [facility] Glucose mass conc 128 mg/dL High 70-100 [facility] Comment on above: Performed By: #### 8 [id number] #### [facility] [address] [place] [address], [facility] Glucose mass conc 165 mg/dL High 70-100 [facility] Comment on above: Performed By: #### 8 [id number] #### [facility] [address] [facility] [address] PROCALCITONINon 03-20-2018 Protein mass conc 0.44 ng/mL High 0.00-0.10 [facility] Comment on above: Order Comment: No: [...] PCT<0.5ng/mL Performed By: #### 3 1488 #### [facility] [address] [place] [address], [facility] TROPONIN-Ion 03-20-2018 Troponin I.cardiac mass conc 0.02 ng/mL Normal 0.00-0.04 [facility] Comment on above: Order Comment: No: D o not add to previous draw Result Comment: REFE RENCE RANGES: 0.00 - 0.04 ng/ml NORMAL 0.05 - 0.50 ng/ml INDETERMINATE > 0.50 ng/ml CONSISTENT WITH AN M.I. Performed By: #### 5 0103 #### [facility] [address] [place] [address], [facility] Troponin I.cardiac mass conc 0.03 ng/mL Normal 0.00-0.04 [facility] Comment on above: Order Comment: No: D o not add to previous draw Result Comment: REFE RENCE RANGES: 0.00 - 0.04 ng/ml NORMAL 0.05 - 0.50 ng/ml INDETERMINATE > 0.50 ng/ml CONSISTENT WITH AN M.I. Performed By: #### 3 6901, [id number], 05246 #### [facility] [address] [place] [address], [facility] Vital Signs Date Time Vital Sign Value Performing Clinician Faci lity 04-28-2018 23:33-0500 Respiratory rate 14 /min DEFAULT PHYSICIAN [facility] Comment on above: Performed By: #### 5 0103 #### [facility] [address] [place] [address], [facility] 04-28-2018 22:19-0500 Respiratory rate 14 /min DEFAULT PHYSICIAN [facility] Comment on above: Order Comment: No: D o not add to previous draw Performed By: #### 5 0103 #### [facility] [address] [place] [address], [facility] 04-28-2018 20:34-0500 Respiratory rate 12 /min DEFAULT PHYSICIAN [facility] Comment on above: Performed By: #### 3 1018 #### [facility] 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 Ivett Rios [place] [place]: 05-05-2023 End: 05-05-2023 Lab Drop off Ivett Rios [facility] Start: 04-21-2023 End: 04-21-2023 ambulatory SEAN VALIENTE Not Available Start: 04-21-2023 End: 04-21-2023 Patient encounter procedure [facility] - Lalita Hyde [facility] Comment on above: Sensorineural hearin g loss (SNHL) of both ears (Primary Dx) Start: 04-05-2023 End: 04-06-2023 ambulatory MD Dandre Burger [place] [place]: 04-05-2023 End: 04-05-2023 Lab Drop off Dandre Burger [facility] Start: 03-31-2023 End: 03-31-2023 ambulatory SEAN VALIENTE Not Available Start: 02-10-2023 End: 02-10-2023 ambulatory SEAN VALIENTE Not Available Start: 02-10-2023 End: 02-10-2023 ambulatory SEAN VALIENTE Not Available Start: 12-30-2022 ambulatory Job MOORE Facility:[facility] Aub[place] Start: 12-28-2022 End: 12-29-2022 ambulatory MD Dandre Burger Facility:[facility] [place] Start: 12-14-2022 End: 12-15-2022 ambulatory MD Dandre Burger [place] Start: 12-14-2022 End: 12-14-2022 Lab Drop off Dandre Burger [facility] Start: 09-29-2022 End: 09-29-2022 ambulatory [facility] Start: 08-26-2022 End: 08-27-2022 ambulatory Job MOORE Facility:CD:[id number] Start: 07-31-2022 End: 08-01-2022 ambulatory GIANFRANCO LAU Facility:[facility] Start: 07-28-2022 End: 07-28-[address] LUIS FRIEDMAN Facility:[facility] Start: 07-20-2022 End: 07-21-[address] GIANFRANCO LAU Facility:[facility] Start: 07-07-2022 ambulatory GIANFRANCO LAU Facilit y:ASHLEE Burgos Start: 04-20-2022 End: 04-21-[address] GIANFRANCO LAU Facility:[facility] Start: 10-10-2021 End: 10-11-[address] GIANFRANCO LAU Facility:[facility] Start: 08-18-2021 End: 08-19-2021 ambulatory RAJINDER MOHAMUD Facility:[facility] Start: 04-25-2018 End: 05-03-2018 Evaluation and management of inpatient FELIPE HUGO Facility:[facility] Start: 03-20-2018 End: 03-22-2018 Evaluation and management of inpatient James Ud Din Facility:[facility] Start: 01-19-2018 End: 01-20-2018 Patient encounter procedure DEFAULT PHYSICIAN Facility:[facility] Procedures Date Procedure Procedure Detail Performing Clinician Start: 05-01-2018 Antibody screen DEFAULT PHYSICIAN Comment on above: Performed By: #### 5 [id number] #### [facility] [address] [place] [address], [facility] Start: 04-28-2018 BYPASS 1 COR ART FRO M THOR ART, OPEN APPROACH KAREN AZIE Start: 04-28-2018 BYPASS 3 COR ART FRO M AORTA WITH AUTOL VN, OPEN APPROACH KAREN AZIE Start: 04-28-2018 EXCISION OF LEFT SAP HENOUS VEIN, PERC ENDO APPROACH KAREN AZIE Start: 04-28-2018 INSERTION OF MONITOR DEV INTO PULM TRUNK, PERC APPROACH PHILIPPE MIRANDA Start: 04-28-2018 Performance of Cardi ac Output, Continuous KAREN AZIE Start: 04-28-2018 TRANSFUSE NONAUT RED BLOOD CELLS IN PERIPH VEIN, PERC PHILIPPE MIRANDA Start: 04-28-2018 ULTRASONOGRAPHY OF H EART WITH AORTA, TRANSESOPHAGEAL PHILIPPE MIRANDA Start: 04-27-2018 Antibody screen DEFAULT PHYSICIAN Comment on above: Performed By: #### 3 [id number], [id number], [id number] #### [facility] [address] [place] [address], [facility] Start: 04-27-2018 MONITORING OF ARTERI AL SATURATION, [...] CI AUD [address] [place] [address] [facility] Immunizations Immunization Date Immunization Notes Care Provider Fa cili 12-28-2022 influenza, injectabl e, quadrivalent, preservative free Dandre Burger [facility] 10-21-2021 zoster vaccine recombinant Dandre Burger [facility] [employer] 05-29-2021 zoster vaccine [facility] NE[facility]ATED: Highlighted row has not occurred!12-14-2022 influenza virus vaccine, unspecified formulation Dandre Burger [facility] [employer] Payers Date Payer Category Payer Medicare ANTH MEDICARE ADVANTAGE [facility] MEDICARE ADVANTAGE [id number] 2022-Present [address] [place] [address] [id number] 2022 Medicare [id number] 2021 Medicaid MEDICAID [facility] [id number] 2021-Present [phone] [address] [place] [address] Medicaid [id number] 1959 Medicaid [id number] 1959 Unknown [id number] 1958 Unknown [id number] 2.16.840.1.599540.3.579.2.647 1958 Unknown [id number] 2.16.840.1.757540.3.579.2.647 1958 Unknown [id number] 2.16.840.1.951912.3.579.2.647 1958 Unknown [id number] 2.16.840.1.256061.3.579.2.593 1958 Unknown [id number] 2.16.840.1.168050.3.579.2.593 1958 Unknown [id number] 2.16.840.1.440118.3.579.2.593 1958 Unknown [id number] 2.16.840.1.627102.3.579.2.593 1958 Unknown [id number] 2.16.840.1.640633.3.579.2.593 1958 Unknown [id number] 2.16.840.1.440245.3.579.2.1259 1958 Unknown [id number] 2.16.840.1.643860.3.579.2.1259 1958 Unknown [id number] 2.16.840.1.108204.3.579.2.1259 1958 Unknown [id number] 2.16.840.1.842398.3.579.2.1259 1958 Unknown [id number] 2.16.840.1.437855.3.579.2.1259 1958 Unknown [id number] 2.16.840.1.952666.3.579.2.727 1958 Unknown [id number] 2.16.840.1.224851.3.579.2.727 1958 Unknown [id number] 2.16.840.1.147929.3.579.2.727 1958 Unknown [id number] 2.16.840.1.189848.3.579.2.727 1958 Unknown [id number] 2.16.840.1.679563.3.579.2.72 1958 Unknown [id number] 2.16.840.1.261025.3.579.2. 1958 Unknown [id number] 2.16.840.1.956739.3.579.2.72 1958 Unknown [id number] 2.16.840.1.236249.3.579.2.72 1958 Unknown [id number] 2.16.840.1.707879.3.579.2. 1958 Unknown [id number] 2.16.840.1.784636.3.579.2. 1958 Unknown [id number] 2.16.840.1.101824.3.579.2 1958 Unknown [id number] 2.16.840.1.284606.3.579.2 Unknown [id number] Unknown Social History Date Type Detail Facility Start: 12-14-2022 End: 04-05-2023 Tobacco smoking status Heavy tobacco smoker (finding) [facility] Tobacco smoking status Never [facility] Comment on above: Patient quit 03/2023 Sex Assigned At Female [facility] Tobacco smoking status NHIS Tobacco smoking consumption unknown [facility] Start: 1960 Sex Assigned At Not on file [facility] Start: 05-05-2023 Tobacco smoking status Ex-smoker (finding) [facility] Comment on above: Patient quit 03/2023 [...] to return the heairng aids and get KENN hearing aids which she has had in the past. Patient would like to proceed with Phonak KENN R hearing aids in color P7. Patient was scheduled in two weeks to be fit with the KENN hearing aids. documented in this encounter [facility] Progress note 09-29-2022 Note Date & Type Note Facility 09-29-2022 Note [place] [facility] Subjective Pato Corral is a 62 [...] presented to the emergency room at the [facility] with chest pain. Work-up was negative for [...] Normal sinus rhyt (more content not included)... [facility] Clinical Note 07-31-2022 Note Date & Type Note Facility 07-31-2022 Note Chief Complaint consultation for screening colonoscopy [facility] Staff 62 year old female presents on [...] Oral, BID Lantus (more content not included)... [facility] Comment on above: Result Comment: Elec tronically Signed By: OSCAR TGZ, Job Tripathi\Date and Time Signed: 07/31/22 14:54 EDT Evaluation + Plan note Note Date & Type Note Facility Evaluation + Plan note Future Appointments Appointment Date:12/28/2022 07:40:00 AM Scheduled Provider:Dandre Burger MD Location:[facility] Appointment Type: Open [facility] Evaluation + Plan note Radiology Note Date & Type Note Facility Evaluation + Plan note Future Appointments Appointment Date:04/12/2023 10:00:00 AM Scheduled Provider: Location:.[facility] Appointment Type:CT Chest, Low Dose Screening () Appointment Date:05/05/2023 11:00:00 AM Scheduled Provider: Location:[facility] Appointment Type: Medicare Wellness Subsequent Appointment Date:07/05/2023 09:15:00 AM Scheduled Provider:Dandre Burger MD Location:[facility] Appointment Type: Open Future Scheduled TestsCT Chest, Low Dose Screening 04/12/23 [facility] Evaluation + Plan note Note Date & Type Note Facility Evaluation + Plan note Future Appointments Appointment Date:07/05/2023 09:15:00 AM Scheduled Provider:Dandre Burger MD Location:[facility] Appointment Type: Open Appointment Date:05/05/2024 11:00:00 AM Scheduled Provider: Location:[facility] Appointment Type:FM Medicare Wellness Subsequent Diagnostic Tests PendingHCV Antibody RFX to Quant PCR 05/05/23 [facility] Evaluation note Note Date & Type Note Facility Evaluation note Diagnosis Sensorineural hearing loss (SNHL) of both ears- Primary documented in this encounter [facility] Hospital course Narrative Note Date & Type Note Facility Hospital course Narrative No data available for this section [facility] Hospital Discharge instructions Note Date & Type Note Facility Hospital Discharge instructions No data available for this section [facility] Progress note Note Date & Type Note Facility Progress note No data available for this section [facility] Summary Purpose Family History No Family History [...] Records Found Hospital Course Note MR#: [id number] [facility] Pt. Name: Pato Corral Admitted: 03/20/2018 [...] (more content not included)... Note MR#: [id number] [facility] Pt. Name: Pato Corral Admitted: 04/25/2018 Discharged: [...] and content) DATE CREATED AUTHOR 05/17/2018 [facility] DATE CREATED AUTHOR AUTHOR'S ORGANIZ ATION 07/29/2022 [facility] DATE CREATED AUTHOR AUTHOR'S ORGANIZ ATION 09/30/2022 [facility] DATE CREATED AUTHOR AUTHOR'S ORGANIZ ATION 05/20/2023 [facility] DATE CREATED AUTHOR AUTHOR'S ORGANIZ ATION 06/09/2023 [facility] Patient Care team informatio n (unrecognized section and content) [employer]umbling [employer] Supervisor Relationship Specialty Start Date End Date Gianfranco Lau MD [address] [place] [address] PCP - General Family Medicine 09/08/22 Reason [...] BE BASED ON THE PRIMARY CLINICAL RECORDS. [employer] [facility]. provides no warranty or guarantee of the accuracy or completeness of information in this document.
== END 2023-06-17 09:39 | disposition home or self-care (01) ==
LOC: CT 09:38
PROVIDERS: PCP Family Medicine; Visit Provider Family Medicine
DX: F17.210 Nicotine dependence, cigarettes, uncomplicated (principal)
CPT/HCPCS: 71271

== ENCOUNTER 2023-07-28 13:46 | Outpatient (OUT) | payer MEDICARE, MEDICAID, SELFPAY | END 2023-07-28 13:47 | disposition home or self-care (01) | LOC: MN 13:48 | PROVIDERS: PCP Family Medicine | DX: E11.8 Type 2 diabetes mellitus with unspecified complications (principal); Z71.3 Dietary counseling and surveillance | CPT/HCPCS: G0108 ==

== ENCOUNTER 2024-10-02 15:09 | Outpatient (RCR) | payer MEDICARE, MEDICAID, SELFPAY | END 2024-12-01 11:41 | disposition home or self-care (01) | LOC: PT 15:09 | PROVIDERS: PCP Family Medicine; Visit Provider Family Medicine | DX: M54.50 Low back pain, unspecified (principal) | CPT/HCPCS: 97035; 97110; 97140; 97161 ==

== ENCOUNTER 2024-11-29 06:45 | Outpatient (OUT) | payer MEDICARE, MEDICAID, SELFPAY ==
--- OUTSIDE RECORDS SUMMARY | 2024-11-29 06:48 | XMS_ITS | CCD ---
Author Organization [facility] Care Team Providers Care Hand Almond Blancher Name Role Phone PHYSICIAN, DEFAULT Admitting Unavailable PHYSICIAN, DEFAULT Attending Unavailable James Ud Calos Admitting Unavailable ANDREI TSE Referring Unavailable HOUSE, GIANFRANCO Primary Care Unavailable CATE RAMIREZ Attending Unavailable FELIPE HUGO Admitting Unavailable HOUSE, GIANFRANCO Referring Unavailable HOUSE, GIANFRANCO Primary Care Unavailable Karen Ruvalcaba Attending Unavailable ID Procedure Practitioner Unavailab max Ruvalcaba, Karen Surgeon Unavailable ID Procedure Practitioner Unavailab le UNKNOWN, PROVIDER Surgeon Unavailable ID Procedure Practitioner Unavailab FELIPE Reed Surgeon Unavailable ID Procedure Practitioner Unavailab PHILIPPE Infante Surgeon Unavailable RAJINDER MOHAMUD Admitting Unavailable AURORA, DR ART June Consulting Unavailable BOWIE, DR BECERRA Primary Care Unavailable RAJINDER MOHAMUD Attending Unavailable RAJINDER MOHAMUD Consulting Unavailable IDALIA, DR LUIS Santa Admitting Unavailabl e BOWIE, DR BECERRA Primary Care Unavailable IDALIA, DR LUIS Santa Attending Unavailabl e IDALIA, DR LUIS Santa Consulting Unavailabl e Nefcy, Paolo Consulting Unavailable UNLU, SAVITA Consulting Unavailable BOWIE, DR BECERRA Attending Unavailable BOWIE, DR BECERRA Admitting Unavailable BOWIE, DR BECERRA Consulting Unavailable BOWIE, DR BECERRA Primary Care Unavailable ROMAN, DR ISI Barajas Consulting Unavailable BOWIE, DR BECERRA Admitting Unavailable BOWIE, DR BECERRA Attending Unavailable BOWIE, DR BECERRA Consulting Unavailable BOWIE, DR BECERRA Primary Care Unavailable BOWIE, DR BECERRA Admitting Unavailable BOWIE, DR BECERRA Attending Unavailable BOWIE, DR BECERRA Consulting Unavailable BOWIE, DR BECERRA Primary Care Unavailable Dandre Burger Primary Care Physician [phone] Gianfranco Lau MD Primary Care Provider SEAN VALIENTE Attending Unavailable SEAN VALIENTE Attending Unavailable Dandre Burger Attending Unavailable Dandre Burger Attending Unavailable Dandre Burger Attending Unavailable Dandre Burger Admitting Unavailable Dandre Burger Attending Unavailable Dandre Burger Attending Unavailable Dandre Burger Attending Unavailable JANET HERNÁNDEZ Attending Unavailable Dandre Burger Attending Unavailable Dandre Burger Attending Unavailable Dandre Burger Attending Unavailable Dandre Burger Admitting Unavailable Dandre Burger Attending Unavailable Dandre Burger Attending Unavailable Dandre Burger Admitting Unavailable Dandre Burger Attending Unavailable BETTY, JANET A Attending Unavailable MD Dandre Burger Attending Unavailable BETTY, JANET A Attending Unavailable BETTY, JANET A Attending Unavailable MD Dandre Burger Referring Unavailable MD Dandre Burger Admitting MD Dandre Meadows Attending Unavailable MD Dandre Burger Admitting Unavailable MD Dandre Burger Attending Unavailable MD Dandre Burger Referring Unavailable BETTY, JANET A Admitting Unavailable BETTY JANET A Attending MD Dandre Meadows Admitting Unavailable MD Dandre Burger Attending Unavailable RAJINDER MOHAMUD Attending Unavailable Allergies Allergy Classification Reported Allergen(s) Allergy Type Date of Onset Reaction(s) Facility (3 sources) No Known Medication Allergies; Translations: [No Known Medication Allergies] Propensity to adverse reactions (disorder) [facility] Repository Medications Current Medications Medication Drug Class(es) Dates Sig (Normalized) Sig (Original) alendronic acid 70 mg oral tablet (3 sources) Bisphosphonate Start: 08-08-2024 alendronate 70 mg Tab See Instructions, TAKE 1 TABLET BY MOUTH ONCE WEEKLY ON AN EMPTY STOMACH BEFORE BREAKFAST. REMAIN UPRIGHT FOR 30 MINUTES AND TAKE WITH 8 OUNCES OF WATER, # 12 tab(s), Refills(s) 0, Pharmacy: [facility] [id number], 161.5, cm, 06/29/24 7:50:00 EDT, Height/Length Dosing, 78.4, kg, 06/29/24 7:50:00 EDT, Weight Dosing Start Date: 08/08/24 Status: Ordered Quantity: 12.0 Unit: tab(s) Repeat number: 1 Start: 05-11-2024 Fosamax 70 mg Tab 70 mg = 1 tab(s), Oral, q7day, # 12 tab(s), Refills(s) 0, Pharmacy: [facility] [id number], 161.5, cm, 05/11/24 8:32:00 EST, Height/Length Dosing, 79.8, kg, 05/11/24 8:32:00 EST, Weight Dosing Start Date: 05/11/24 Status: Ordered Quantity: 12.0 Unit: tab(s) Repeat number: 1 Indication: Age-related osteoporosis without current pathological fracture amLODIPine 5 mg oral tablet (3 sources) Dihydropyridine Calcium Channel Connor Start: 07-31-2022 take 1 tablet by mouth once daily amLODIPine 5 mg Tab 5 mg = 1 tab(s), Oral, Daily, Refills(s) 0 Start Date: 07/31/22 Status: Ordered aspirin 81 mg delayed release oral tablet (8 sources) Platelet Aggregation Inhibitor, Nonsteroidal Anti-inflammatory Drug Start: 07-31-2022 take 1 tablet by mouth once daily aspirin 81 mg Oral EC Tab 81 mg = 1 tab(s), Oral, Daily, Refills(s) 0 Start Date: 07/31/22 Status: Ordered Repeat number: 1 atorvastatin 80 mg oral tablet (8 sources) HMG-CoA Reductase Inhibitor Start: 12-28-2023 take 1 tablet by mouth once daily atorvastatin 80 mg Tab 80 mg = 1 tab(s), Oral, Daily, # 90 tab(s), Refills(s) 3, Pharmacy: [facility] [id number], 160, cm, 10/04/23 8:29:00 EDT, Height/Length Dosing, 83, kg, 10/04/23 8:29:00 EDT, Weight Dosing Start Date: 12/28/23 Status: Ordered Quantity: 90.0 Unit: tab(s) Repeat number: 4 Start: 07-31-2022 take 1 tablet by alejandro th once daily atorvastatin 80 mg Tab 80 mg = 1 tab(s), Oral, Daily, Refills(s) 0 Start Date: 07/31/22 Status: Ordered 12 hr buPROPion hydrochloride 150 mg extended release oral tablet (8 sources) Aminoketone Start: 02-21-2024 take 1 tablet by mouth once daily Wellbutrin SR 150 mg Tab-ER 150 mg = 1 tab(s), Oral, Daily, # 90 tab(s), Refills(s) 1, Pharmacy: [facility] [id number], 160, cm, 01/04/24 7:21:00 EDT, Height/Length Dosing, 78.7, kg, 01/04/24 7:21:00 EDT, Weight Dosing Start Date: 02/21/24 Status: Ordered Quantity: 90.0 Unit: tab(s) Repeat number: 2 Start: 07-05-2023 take 1 tablet by alejandro th once daily Wellbutrin SR 150 mg Tab-ER 150 mg = 1 tab(s), Oral, Daily, # 90 tab(s), Refills(s) 1, [id number], 160, cm, 07/05/23 9:08:00 EDT, Height/Length Dosing, 87.5, kg, 07/05/23 9:08:00 EDT, Weight Dosing Start Date: 07/05/23 Status: Ordered Start: 07-31-2022 take 1 tablet by alejandro th once daily Wellbutrin SR 150 mg Tab-ER 150 mg = 1 tab(s), Oral, Daily, Refills(s) 0 Start Date: 07/31/22 Status: Ordered carvedilol 25 mg oral tablet (8 sources) alpha-Adrenergic Connor, beta-Adrenergic Connor Start: 06-26-2024 carvedilol 25 mg Tab See Instructions, TAKE 1 AND 1/2 TABLETS BY MOUTH TWO TIMES A DAY, # 270 tab(s), Refills(s) 0, Pharmacy: [facility] [id number], 161.5, cm, 05/11/24 8:32:00 EST, Height/Length Dosing, 79.8, kg, 05/11/24 8:32:00 EST, Weight Dosing Start Date: 06/26/24 Status: Ordered Quantity: 270.0 Unit: tab(s) Repeat number: 1 Start: 03-27-2024 carvedilol 25 mg Tab See Instructions, TAKE 1 AND 1/2 TABLETS BY MOUTH TWO TIMES A DAY, # 270 tab(s), Refills(s) 0, Pharmacy: [facility] [id number], 160, cm, 01/04/24 7:21:00 EDT, Height/Length Dosing, 78.7, kg, 01/04/24 7:21:00 EDT, Weight Dosing Start Date: 03/27/24 Status: Ordered Quantity: 270.0 Unit: tab(s) Repeat number: 1 Start: 12-28-2023 take 5.5 tablets by mouth twice daily carvedilol 25 mg Tab See Instructions, 1&1/2 orally twice a day, # 270 tab(s), Refills(s) 0, Pharmacy: [facility] [id number], 160, cm, 10/04/23 8:29:00 EDT, Height/Length Dosing, 83, kg, 10/04/23 8:29:00 EDT, Weight Dosing Start Date: 12/28/23 Status: Ordered Start: 07-31-2022 carvedilol 25 mg Tab 37.5 mg = 1.5 tab(s), Oral, BID, Refills(s) 0 Start Date: 07/31/22 Status: Ordered Start: 07-31-2022 take 1 tablet by alejandro th twice daily carvedilol 25 mg Tab 25 mg = 1 tab(s), Oral, BID, Refills(s) 0 Start Date: 07/31/22 Status: Ordered docusate sodium 100 mg oral capsule (8 sources) Start: 07-31-2022 take 1 capsule by mouth once daily as needed for constipation Colace 100 mg Cap 100 mg = 1 cap(s), Oral, Daily, PRN for constipation, Refills(s) 0 Start Date: 07/31/22 Status: Ordered Repeat number: 1 0.5 ML dulaglutide 9 MG/ML Auto-Injector [Trulicity] (8 sources) GLP-1 Receptor Agonist Start: 07-19-2024 inject 4.5 mg by subcutaneous injection every week Trulicity Pen 4.5 mg/0.5 mL subcutaneous solution 4.5 mg, SubCutaneous, qWeek, # 4 EA, Refills(s) 1, Pharmacy: [facility] [id number], 161.5, cm, 06/29/24 7:50:00 EDT, Height/Length Dosing, 78.4, kg, 06/29/24 7:50:00 EDT, Weight Dosing Start Date: 07/19/24 Status: Ordered Quantity: 4.0 Unit: EA Repeat number: 2 Start: 05-18-2024 inject 4.5 mg by sub cutaneous injection every week Trulicity Pen 4.5 mg/0.5 mL subcutaneous solution 4.5 mg, SubCutaneous, qWeek, # 4 EA, Refills(s) 1, Pharmacy: [facility] [id number], 161.5, cm, 05/11/24 8:32:00 EST, Height/Length Dosing, 79.8, kg, 05/11/24 8:32:00 EST, Weight Dosing Start Date: 05/18/24 Status: Ordered Quantity: 4.0 Unit: EA Repeat number: 2 Start: 04-06-2024 inject 4.5 mg by sub cutaneous injection every week Trulicity Pen 4.5 mg/0.5 mL subcutaneous solution 4.5 mg, SubCutaneous, qWeek, # 4 EA, Refills(s) 0, Pharmacy: [facility] [id number], 160, cm, 04/06/24 8:31:00 EST, Height/Length Dosing, 78.8, kg, 04/06/24 8:31:00 EST, Weight Dosing Start Date: 04/06/24 Status: Ordered Start: 10-04-2023 inject 3 mg by subcu taneous injection every week Trulicity Pen 3 mg/0.5 mL subcutaneous solution 3 mg, SubCutaneous, qWeek, # 12 EA, Refills(s) 0, Pharmacy: [facility] [id number], 160, cm, 10/04/23 8:29:00 EDT, Height/Length Dosing, 83, kg, 10/04/23 8:29:00 EDT, Weight Dosing Start Date: 10/04/23 Status: Ordered Start: 04-21-2023 inject 1.5 mg by sub cutaneous injection every week Trulicity Pen 1.5 mg/0.5 mL subcutaneous solution 1.5 mg, SubCutaneous, qWeek, # 12 EA, Refills(s) 0, Pharmacy: [facility] #[id number], 157.5, cm, 04/05/23 7:03:00 EST, Height/Length Dosing, 88.1, kg, 04/05/23 7:03:00 EST, Weight Dosing Start Date: 04/21/23 Status: Ordered Start: 03-22-2023 inject 0.75 mg by lizarraga bcutaneous injection every week Trulicity Pen 0.75 mg/0.5 mL subcutaneous solution See Instructions, inject 0.75 milligrams subcutaneously every week, # 2 mL, Refills(s) 0, Pharmacy: [facility] #[id number], 157.5, cm, 12/14/22 6:58:00 EDT, Height/Length Dosing, 88.4, kg, 12/14/22 6:58:00 EDT, Weight Dosing Start Date: 03/22/23 Status: Ordered Start: 12-14-2022 inject 0.75 mg by lizarraga bcutaneous injection every week Trulicity Pen 0.75 mg/0.5 mL subcutaneous solution 0.75 mg, SubCutaneous, qWeek, # 4 EA, Refills(s) 0, Pharmacy: [facility] #[id number], 157.5, cm, 12/14/22 6:58:00 EDT, Height/Length Dosing, 88.4, kg, 12/14/22 6:58:00 EDT, Weight Dosing Start Date: 12/14/22 Status: Ordered DULoxetine 60 mg delayed release oral capsule (5 sources) Serotonin and Norepinephrine Reuptake Inhibitor Start: 08-21-2024 take 1 capsule by mouth once daily duloxetine 60 mg oral delayed release capsule See Instructions, TAKE 1 CAPSULE BY MOUTH DAILY, # 90 cap(s), Refills(s) 0, Pharmacy: [facility] [id number], 161.5, cm, 06/29/24 7:50:00 EDT, Height/Length Dosing, 78.4, kg, 06/29/24 7:50:00 EDT, Weight Dosing Start Date: 08/21/24 Status: Ordered Quantity: 90.0 Unit: cap(s) Repeat number: 1 Start: 02-21-2024 take 1 capsule by [facility] once daily Cymbalta 60 mg oral delayed release capsule 60 mg = 1 cap(s), Oral, Daily, # 90 cap(s), Refills(s) 1, [facility] [id number], 160, cm, 01/04/24 7:21:00 EDT, Height/Length Dosing, 78.7, kg, 01/04/24 7:21:00 EDT, Weight Dosing Start Date: 02/21/24 Status: Ordered Quantity: 90.0 Unit: cap(s) Repeat number: 2 Start: 07-05-2023 take 1 capsule by [facility] once daily Cymbalta 60 mg oral delayed release capsule 60 mg = 1 cap(s), Oral, Daily, # 90 cap(s), Refills(s) 1, Pharmacy: [facility] [id number], 160, cm, 07/05/23 9:08:00 EDT, Height/Length Dosing, 87.5, kg, 07/05/23 9:08:00 EDT, Weight Dosing Start Date: 07/05/23 Status: Ordered duloxetine 60 mg Cap-DR (3 sources) Start: 07-31-2022 take 1 capsule by mouth once daily duloxetine 60 mg Cap-DR = 1 cap(s), Oral, Daily, Refills(s) 0 Start Date: 07/31/22 Status: Ordered FreeStyle Kailey 2 Sensor (5 sources) Start: 03-22-2024 FreeStyle Libr e 2 Sensor FreeStyle Kailey 2 Sensor, See Instructions, 6 EA, 5, Apply new sensor to upper back arm q 14days, [facility] [id number], Supply, 160, cm, 01/04/24 7:21:00 EDT, Height/Length Dosing, 78.7, kg, 01/04/24 7:21:00 EDT, Weight Dosing Start Date: 03/22/24 Status: Ordered Quantity: 6.0 Unit: EA Repeat number: 6 Start: 03-22-2024 FreeStyle Libr e 2 Sensor FreeStyle Kailey 2 Sensor, See Instructions, 6 EA, 5, Apply new sensor to upper back arm q 14days, [facility] [id number], Supply, 160, cm, 01/04/24 7:21:00 EDT, Height/Length Dosing, 78.7, kg, 01/04/24 7:21:00 EDT, Weight Dosing Start Date: 03/22/24 Status: Ordered Start: 09-23-2023 FreeStyle Libr e 2 Sensor FreeStyle Kailey 2 Sensor, See Instructions, 6 EA, 11, Apply new sensor to upper back arm q 14days, [facility] [id number], Supply, 160, cm, 09/13/23 7:24:00 EDT, Height/Length Dosing, 86, kg, 09/13/23 7:24:00 EDT, Weight Dosing Start Date: 09/23/23 Status: Ordered gabapentin 400 mg oral capsule (8 sources) Anti-epileptic Agent Start: 08-21-2024 take 1 capsule by mouth three times daily gabapentin 400 mg Cap See Instructions, TAKE 1 CAPSULE BY MOUTH 3 TIMES A DAY, # 270 cap(s), Refills(s) 0, Pharmacy: [facility] [id number], 161.5, cm, 06/29/24 7:50:00 EDT, Height/Length Dosing, 78.4, kg, 06/29/24 7:50:00 EDT, Weight Dosing Start Date: 08/21/24 Status: Ordered Quantity: 270.0 Unit: cap(s) Repeat number: 1 Start: 04-06-2024 take 1 capsule by [facility] three times daily gabapentin 400 mg Cap 400 mg = 1 cap(s), Oral, TID, # 270 cap(s), Refills(s) 0, Pharmacy: [facility] [id number], 160, cm, 04/06/24 8:31:00 EST, Height/Length Dosing, 78.8, kg, 04/06/24 8:31:00 EST, Weight Dosing Start Date: 04/06/24 Status: Ordered Quantity: 270.0 Unit: cap(s) Repeat number: 1 Start: 01-04-2024 take 1 capsule by [facility] three times daily gabapentin 400 mg Cap 400 mg = 1 cap(s), Oral, TID, # 270 cap(s), Refills(s) 0, Pharmacy: [facility] [id number], 160, cm, 01/04/24 7:21:00 EDT, Height/Length Dosing, 78.7, kg, 01/04/24 7:21:00 EDT, Weight Dosing Start Date: 01/04/24 Status: Ordered Start: 12-28-2022 take 1 capsule by [facility] three times daily gabapentin 400 mg Cap 400 mg = 1 cap(s), Oral, TID, # 270 cap(s), Refills(s) 0, Pharmacy: [facility] #[id number], 157.5, cm, 12/14/22 6:58:00 EDT, Height/Length Dosing, 88.4, kg, 12/14/22 6:58:00 EDT, Weight Dosing Start Date: 12/28/22 Status: Ordered Start: 07-22-2022 take 1 capsule by [facility] three times daily gabapentin 400 mg Cap 400 mg = 1 cap(s), Oral, TID, Refills(s) 0 Start Date: 07/22/22 Status: Ordered glimepiride 4 mg oral tablet (3 sources) Sulfonylurea Start: 07-22-2022 take 1 tablet by mouth twice daily Amaryl 4 mg Tab 4 mg = 1 tab(s), Oral, BID, Refills(s) 0 Start Date: 07/22/22 Status: Ordered 3 ml insulin glargine 100 unt/ml pen injector (8 sources) Insulin Analog Start: 03-22-2024 Basaglar KwikP en 100 units/mL subcutaneous solution See Instructions, inject 15 units subcutaneously twice a day, # 54 mL, Refills(s) 1, Pharmacy: [facility] [id number], 160, cm, 01/04/24 7:21:00 EDT, Height/Length Dosing, 78.7, kg, 01/04/24 7:21:00 EDT, Weight Dosing Start Date: 03/22/24 Status: Ordered Quantity: 54.0 Unit: mL Repeat number: 2 Start: 09-15-2023 Basaglar KwikP en 100 units/mL subcutaneous solution See Instructions, inject 15 units subcutaneously twice a day, # 54 mL, Refills(s) 0, Pharmacy: [facility] #[id number], 160, cm, 09/13/23 7:24:00 EDT, Height/Length Dosing, 86, kg, 09/13/23 7:24:00 EDT, Weight Dosing Start Date: 09/15/23 Status: Ordered Start: 07-22-2022 inject 30 [IU] by lizarraga bcutaneous injection twice daily [...] Refills(s) 0 Start Date: 12/14/22 Status: Ordered lisinopril 2.5 mg oral tablet (4 sources) Angiotensin Converting Enzyme Inhibitor Start: 04-10-2024 take 1 tablet by mouth once daily lisinopril 2.5 mg Tab See Instructions, TAKE 1 TABLET BY MOUTH DAILY, # 90 tab(s), Refills(s) 0, Pharmacy: [facility] [id number], 160, cm, 04/06/24 8:31:00 EST, Height/Length Dosing, 78.8, kg, 04/06/24 8:31:00 EST, Weight Dosing Start Date: 04/10/24 Status: Ordered Quantity: 90.0 Unit: tab(s) Repeat number: 1 Start: 03-27-2024 take 1 tablet by alejandro th once daily lisinopril 2.5 mg Tab See Instructions, TAKE 1 TABLET BY MOUTH DAILY, # 90 tab(s), Refills(s) 0, Pharmacy: [facility] [id number], 160, cm, 01/04/24 7:21:00 EDT, Height/Length Dosing, 78.7, kg, 01/04/24 7:21:00 EDT, Weight Dosing Start Date: 03/27/24 Status: Ordered metFORMIN hydrochloride 1000 mg / SITagliptin 50 mg oral tablet (8 sources) Biguanide, Dipeptidyl Peptidase 4 Inhibitor Start: 04-10-2024 take 1 tablet by mouth twice daily Janumet 50 mg/1000 mg oral tablet 1 tab(s), Oral, BID, 180 tab(s), Refill(s) 1, [facility] [id number], 160, cm, 04/06/24 8:31:00 EST, Height/Length Dosing, 78.8, kg, 04/06/24 8:31:00 EST, Weight Dosing Start Date: 04/10/24 Status: Ordered Quantity: 180.0 Unit: tab(s) Repeat number: 2 Start: 07-05-2023 Janumet 50 mg/ 1000 mg oral tablet 1 tab(s), Oral, BID, 180 tab(s), Refill(s) 1, [facility] #[id number], 160, cm, 07/05/23 9:08:00 EDT, Height/Length Dosing, 87.5, kg, 07/05/23 9:08:00 EDT, Weight Dosing Start Date: 07/05/23 Status: Ordered Start: 07-22-2022 take 1 tablet by alejandro th twice daily Janumet 50 mg/1000 mg oral tablet 1 tab(s), Oral, BID, Refill(s) 0 Start Date: 07/22/22 Status: Ordered methylPREDNISolone 4 mg oral tablet (1 source) Corticosteroid Start: 12-14-2022 End: 12-20-2022 Medrol Dosepack 4 mg Tab = 1 packet(s), Oral, As Directed, as directed on package labeling, X 6 day(s), # 21 tab(s), Refills(s) 0, Pharmacy: [facility] #[id number], 157.5, cm, 12/14/22 6:58:00 EDT, Height/Length Dosing, 88.4, kg, 12/14/22 6:58:00 EDT, Weight Dosing Start Date: 12/14/22 Stop Date: 12/20/22 Status: Ordered Multi Vitamins oral tablet (8 sources) Start: 07-31-2022 take 1 tablet by mouth once daily Multi Vitamins oral tablet 1 tab(s), Oral, Daily, Refill(s) 0 Start Date: 07/31/22 Status: Ordered Repeat number: 1 Start: 07-31-2022 take 1 tablet by alejandro once daily Multi Vitamins oral tablet 1 tab(s), Oral, Daily, Refill(s) 0 Start Date: 07/31/22 Status: Ordered traMADol hydrochloride 50 mg oral tablet (1 source) Opioid Agonist Start: 08-31-2024 take 1-2 tablets by mouth every eight hours as needed for pain traMADOL 50 mg Tab 1-2 tabs, Oral, q8hr, PRN Pain, # 24 tab(s), Refills(s) 0, Pharmacy: [facility] [id number], 161.5, cm, 08/31/24 11:23:00 EDT, Height/Length Dosing, 78.9, kg, 08/31/24 11:23:00 EDT, Weight Dosing Start Date: 08/31/24 Status: Ordered Quantity: 24.0 Unit: tab(s) Repeat number: 1 Indications: Low back pain, unspecified; Problems Active Problems Problem Classification Problem Date [...] UNSPECIFIED] Onset: 04-25-2018 Episodic Chronic kidney disease (20 sources) Chronic kidney disease, unspecified; Translations: [Chronic kidney disease] Onset: 10-16-2021 07-22-2022 Chronic Comment on above: linked HTN with CKD per OP CDI policy. Chronic obstructive pulmonary disease and bronchiectasis (9 sources) Chronic obstructive pulmonary disease, unspecified; Translations: [Chronic obstructive lung disease] Onset: 04-25-2018 07-22-2022 Chronic Coagulation and hemorrhagic disorders (1 source) Thrombocytopenia, unspecified; Translations: [THROMBOCYTOPENIA, UNSPECIFIED] Onset: 04-25-2018 Chronic Coronary atherosclerosis and other heart disease (14 sources) Atherosclerotic heart disease of [place] coronary artery with unstable angina pectoris; Translations: [Preinfarction syndrome] Onset: 03-20-2018 12-14-2022 Chronic Coronary atherosclerosis and other heart disease (2 sources) Presence of aortocoronary bypass graft; Translations: [Presence of aortocoronary bypass graft] Onset: 06-11-2022 Episodic Deficiency and other anemia (1 source) Iron deficiency anemia secondary to blood loss (chronic); Translations: [IRON DEFICIENCY ANEMIA SECONDARY TO BLOOD LOSS (CHRONIC)] Onset: 04-25-2018 Chronic Diabetes mellitus with complications (11 sources) Type 2 diabetes mellitus with diabetic chronic kidney disease; Translations: [Disorder of kidney due to diabetes mellitus] Onset: 10-10-2021 Chronic Diabetes mellitus with complications (1 source) Type 2 diabetes mellitus with diabetic polyneuropathy; Translations: [TYPE 2 DIABETES MELLITUS WITH DIABETIC POLYNEUROPATHY] Onset: 03-20-2018 Diabetes mellitus without complication (17 sources) Type 2 diabetes mellitus without complications; Translations: [Diabetes mellitus] Onset: 07-20-2022 Chronic Comment on above: linked DM with HLD p er outpatient CDI policy. linked DM with CKD p er OP CDI policy. Disorders of lipid metabolism (9 sources) Hyperlipidemia, unspecified; Translations: [Hyperlipidemia] Onset: 04-25-2018 07-22-2022 Chronic Essential hypertension (11 sources) Essential (primary) hypertension; Translations: [Essential hypertension] Onset: 03-20-2018 07-22-2022 Chronic Fluid and electrolyte disorders (1 source) Acidosis; Translations: [ACIDOSIS] Onset: 03-20-2018 Episodic Headache; including migraine (7 sources) Headache 12-28-2022 Episodic Mood disorders (13 sources) Depressive disorder; Translations: [Moderate major depression, single episode] 07-22-2022 Chronic Comment on above: added per 09/30/2021 query response. Noninfectious gastroenteritis (1 source) Noninfective gastroenteritis and colitis, unspecified; Translations: [NONINFECTIVE GASTROENTERITIS AND COLITIS, UNSPECIFIED] Onset: 03-20-2018 Episodic Nonspecific chest pain (5 sources) Chest pain, unspecified; Translations: [Other chest pain] Onset: 09-10-2021 Episodic Osteoporosis (3 sources) Osteoporosis 05-11-2024 Chronic Other aftercare (2 sources) buttermaker continuous churn (current) use of aspirin; Translations: [LONG-TERM (CURRENT) USE OF ASPIRIN] Onset: 03-20-2018 Episodic Other aftercare (1 source) Other mcc (current) drug therapy; Translations: [OTH CRUDE OIL TREATER CURRENT DRUG THERAPY] Onset: 07-29-2022 Episodic Other aftercare (1 source) buttermaker continuous churn (current) use of insulin; Translations: [LONG-TERM CURRENT USE OF INSULIN] Onset: 07-29-2022 Episodic Other aftercare (1 source) buttermaker continuous churn (current) use of oral hypoglycemic drugs; Translations: [LONG-TERM (CURRENT) USE OF ORAL HYPOGLYCEMIC DRUGS] Onset: 04-25-2018 Other ear and sense organ disorders (8 sources) Hearing loss 07-22-2022 Chronic Other ear and sense organ disorders (2 sources) Sensorineural hearing loss, bilateral; Translations: [Sensorineural hearing loss, bilateral] 04-21-2023 Chronic Other fractures (1 source) Multiple fractures of ribs, left side, subsequent encounter for fracture with routine healing; Translations: [MULTIPLE FX OF RIBS, LEFT SIDE, SUBS FOR FX W ROUTN HEAL] Onset: 03-20-2018 Episodic Other hematologic conditions (7 sources) Microcytosis 12-28-2022 Episodic Other lower respiratory disease (1 source) Hypoxemia; Translations: [HYPOXEMIA] Onset: 04-25-2018 Episodic Other nervous system disorders (8 sources) Polyneuropathy 07-22-2022 Chronic Other nutritional; endocrine; and metabolic disorders (11 sources) Body mass index 30+ - obesity 07-31-2022 Chronic Other upper respiratory infections (5 sources) Posterior rhinorrhea 07-05-2023 Episodic Pneumonia (except that caused by tuberculosis or sexually transmitted disease) (1 source) Pneumonia, unspecified organism; Translations: [PNEUMONIA, UNSPECIFIED ORGANISM] Onset: 03-20-2018 Episodic Residual codes; unclassified (1 source) Obstructive sleep apnea (adult) (pediatric); Translations: [OBSTRUCTIVE SLEEP APNEA (ADULT) (PEDIATRIC)] Onset: 04-25-2018 Chronic Residual codes; unclassified (8 sources) Obstructive sleep apnea syndrome 07-22-2022 Chronic [...] SYS] Onset: 04-25-2018 Episodic Residual codes; unclassified (8 sources) Family history of cancer of colon 07-31-2022 Episodic Residual codes; unclassified (3 sources) Smokes tobacco daily 05-11-2024 Episodic Retinal detachments; defects; vascular occlusion; and retinopathy (8 sources) 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 Screening and history of mental health and substance abuse codes (1 source) Ex-smoker 06-29-2024 Episodic Septicemia (except in labor) (1 source) Sepsis Onset: 03-20-2018 Episodic Septicemia (except in labor) (3 sources) Sepsis, unspecified organism; Translations: [SEPSIS, UNSPECIFIED ORGANISM] Onset: 03-20-2018 Spondylosis; intervertebral disc disorders; other back problems (8 sources) Backache 12-14-2022 Episodic Substance-related disorders (11 sources) Nicotine dependence, cigarettes, uncomplicated; Translations: [Smoker] Onset: 04-25-2018 07-22-2022 Chronic Unclassified (13 sources) Patient encounter status 07-31-2022 Unclassified (7 sources) Long-term current use of insulin 12-24-2022 [...] Name Value Interpretation Reference Range Facil ity Office Visiton 11-02-2024 Follow-up visit [id number] Pato [place] 1960 F Date Provider Department Center 11/02/2024 RAJINDER ALVAREZ CARD [facility] Family History Problem Relation Age of Onset Coronary artery disease Father Family Status - Relation Status Age at Mother Alive Father Level of Service:09019 ID OFFICE/OUTPATIENT ESTABLISHED MOD MDM 30 MIN Reason for Visit and Comments: Coronary Artery Disease [187] Hypertension [339492] Hyperlipidemia [182] Normal [facility] Ambulatory Visit Summaryon 0 09-28-2024 Ambulatory Visit Summary Ambulatory Visit Summary PATO CORRAL :1960 Visit Date:09/28/2024 Ambulatory Visit Instructions Your Diagnosis Type 2 diabetes mellitus with stage 3 chronic kidney disease Chronic obstructive pulmonary disease Benign hypertension with chronic kidney disease, stage III Diabetic nephropathy Chronic kidney disease, stage 3 unspecified Your Care Team Attending Physician - JANET HERNÁNDEZ CNP Primary Care Physician - Dandre Burger MD This Is Your Medications List Misc Prescription (FreeStyle Kailey 2 Sensor) Misc Prescription (Misc DME Prescription) alendronate (alendronate 70 mg Tab) aspirin (aspirin 81 mg Oral EC Tab) atorvastatin (atorvastatin 80 mg Tab) buPROPion (Wellbutrin SR 150 mg Tab-ER) carvedilol (carvedilol 25 mg Tab) docusate (Colace 100 mg Cap) dulaglutide (Trulicity Pen 4.5 mg/0.5 mL subcutaneous solution) duloxetine (duloxetine 60 mg oral delayed release capsule) gabapentin (gabapentin 400 mg Cap) insulin glargine (Basaglar KwikPen 100 units/mL subcutaneous solution) lisinopril (lisinopril 2.5 mg Tab) metformin-sitagliptin (Janumet 50 mg/1000 mg oral tablet) multivitamin (Multi Vitamins oral tablet) tramadol (traMADOL 50 mg Tab) Procedures Performed Colonoscopy (05/04/2016), CABG x 4 - Coronary artery bypass grafts x 4, Carpal tunnel release, section, section, section, Cholecystectomy, Excision of lipoma of back, Vaginal total hysterectomy. Discharge Vitals Temperature (Oral) 36.5 ???C Heart Rate (Peripheral) 90 Respiratory Rate 18 Blood Pressure 142/88 Height 161.5 cm Height 64 in Weight 78.3 kg Weight 172.622 lb BMI 30.02 What to do next Scheduled Follow-Up Appointments 2025 8:40 AM EST With: JANET HERNÁNDEZ CNP Where: [place] [id number] 8:00 AM EST With: Where: [address] [phone]- You Need to Schedule the Following Appointments Follow Up with JANET HERNÁNDEZ CNP, FAM When: Within 6 months Comments: Diabetes Where: [address] [place] [phone] Business (1) Medications What How Much When Why Instructions Unchanged alendronate (alendronate 70 mg Tab) See instructions TAKE 1 TABLET BY MOUTH ONCE WEEKLY ON AN EMPTY STOMACH BEFORE BREAKFAST. REMAIN UPRIGHT FOR 30 MINUTES AND TAKE WITH 8 OUNCES OF WATER Unchanged aspirin (aspirin 81 mg Oral EC Tab) 1 Tablets By Mouth Every day Unchanged atorvastatin (atorvastatin 80 mg Tab) 1 Tablets By Mouth Every day Unchanged buPROPion (Wellbutrin SR 150 mg Tab-ER) 1 Tablets By Mouth Every day Unchanged carvedilol (carvedilol 25 mg Tab) See instructions TAKE 1 AND 1/ 2 TABLETS BY MOUTH TWO TIMES A DAY Unchanged docusate (Colace 100 mg Cap) 1 Capsules By Mouth Every day as needed for for constipation Unchanged dulaglutide (Trulicity Pen 4.5 mg/ 0.5 mL subcutaneous solution) 4.5 Milligram Subcutaneous Every week Unchanged duloxetine (duloxetine 60 mg oral delayed release capsule) See instructions TAKE 1 CAPSULE BY MOUTH DAILY Unchanged gabapentin (gabapentin 400 mg Cap) See instructions TAKE 1 CAPSULE BY MOUTH 3 TIMES A DAY Unchanged insulin glargine (Basaglar KwikPen 100 units/ mL subcutaneous solution) See instructions inject 15 units subcutaneously twice a day Unchanged lisinopril (lisinopril 2.5 mg Tab) See instructions TAKE 1 TABLET BY MOUTH DAILY Unchanged metformin-sitagliptin (Janumet 50 mg/ 1000 mg oral tablet) 1 Tablets By Mouth 2 times a day Unchanged Misc Prescription (FreeStyle Kailey 2 Sensor) See instructions Apply new sensor to upper back arm q 14days Unchanged Misc Prescription (Misc DME Prescription) See instructions Droplet 32G x 1/ 4 needles. Use to inject insulin sub q twice a day E11.69 Unchanged multivitamin (Multi Vitamins oral tablet) 1 Tablets By Mouth Every day Unchanged tramadol (traMADOL 50 mg Tab) 1-2 tabs By Mouth Every 8 hours as needed for Pain Lumbar pain Allergies No Known Medication Allergies Problems Ongoing - Any problem that you are currently receiving treatment for. Back pain Benign hypertension with chronic kidney disease, stage III BMI 30.0-30.9,adult Chronic obstructive pulmonary disease Cigarette nicotine dependence Coronary artery disease Current every day smoker Diabetic nephropathy Essential hypertension Family history of colon cancer Former smoker Hearing loss Hyperlipidemia Kidney disease, chronic, stage III (moderate, EGFR 30-59 ml/min) Long-term insulin use Major depressive disorder, single episode, moderate Obesity (BMI 30-39.9) KELLY (obstructive sleep apnea) Osteoporosis Polyneuropathy Post-nasal drip Retinopathy S/P CABG x 3 Screening for breast cancer Scree (more content not included)... Normal [facility] Family Medicine Office/Clini c Noteon 09-28-2024 Family Medicine Office/Clinic Note Family Medicine Office/Clinic Note Chief Complaint 3m Diabetic Check up The patient presents for a follow-up on diabetes management and medication refills. [facility] Staff Pt presents today for 3m follow up. Patient is here for follow up on Diabetes. How often are you checking your blood sugars? _ What are your average readings? _145 Paresthesias, Ulcerations or sores? no Lisinopril, aspirin, statin therapy? Yes Lisinopril therapy. Foot Exam: 07/05/23 Eye Exam: 08/2023 Does have upcoming appt in November A1c: Hgb A1C %: 7.3 % High (04/06/24 09:29:00) Hgb A1c POC: 6.1 % High (06/29/24 08:12:00) Chol: 117 mg/dL Low (01/04/24 08:01:00) HDL: 36 mg/dL (01/04/24 08:01:00) LDL Direct: 47 mg/dL (01/04/24 08:01:00) Tri mg/dL High (01/04/24 08:01:00) VLDL: 53 mg/dL High (01/04/24 08:01:00) Patient is here for follow up on hypertension. How often are you checking your blood pressure? _no What are your average readings? _ Yearly BMP: _01/04/24 Hx of CKD & hyperlipidemia as well. Follows cardiology for CAD. Seen mid August for back pain. Tx'd with Toradol inj & Tramadol #24. XR Spine 09/04/24. Showed inflammation & arthritis. Pt was to be referred to PT. Has appt on Wednesday. Does not need refills at this time. History of Present Illness 64-year-old female presenting with a follow-up for diabetes management. Her last hemoglobin A1c was 6.1, indicating good control of her diabetes, and she is currently on Trulicity for management. She reports neuropathy symptoms, with her last two toes frequently falling asleep, and experiences soreness in her feet attributed to neuropathy. She has consulted a balloon maker in the past and received dietary recommendations, although she misplaced the written plan. The patient has a history of hypertension and chronic obstructive pulmonary disease (COPD). She is scheduled to start physical therapy for back pain, which has been delayed. She has been taking Tylenol Arthritis intermittently for pain management, particularly during rainy weather, and is aware of the potential impact on her kidneys. Review of Systems PHQ Score Initial Depression Screen Score: 0 SCORE - Neurological: Reports neuropathy with toes falling asleep, soreness in feet - Musculoskeletal: Reports back pain, uses Tylenol Arthritis for pain management - Respiratory: Denies dyspnea, cough, or wheezing Physical Exam Vitals & Measurements T: 36.5 ???C(Oral) HR: 90(Peripheral) RR: 18 BP: 144/82 SpO2: 99% HT: 64 in HT: 161.5 cm WT: 172.622 lb WT: 78.3 kg BMI: 30.02 General: alert, no acute distress Cardiovascular: regular rate and rhythm, normal peripheral perfusion Respiratory: Lungs CTA, respirations non labored Extremities: no deformity, no trauma Foot: Normal sensation, pedal pulses palpable Neurological: oriented x 4, LOC appropriate for age speech normal Diabetic Foot Exam Decreased Monofilament Sensation Foot: Left - Normal, Right - Normal Bunions/Foot Deformity: Left - Normal, Right - Normal Abnormal Pulse Foot: Left - Normal, Right - Normal Skin Lesions Foot: Left - Normal, Right - Normal Vibratory Sensation Foot: Left - Normal, Right - Normal Foot Exam Result: Normal foot exam Assessment/Plan 1. Type 2 diabetes mellitus with stage 3 chronic kidney disease (E11.22: Type 2 diabetes mellitus with diabetic chronic kidney disease) - Stable - Controlled - Continue current diabetes management with Trulickaiser, Lantus, & Janumet monitor A1c levels regularly - No refills need at today's visit - Consider dietary modifications and increased physical activity as tolerated. - f/u in 6 months 2. Chronic obstructive pulmonary disease (J44.9: Chronic obstructive pulmonary disease, unspecified) - Continue current COPD management, monitor respiratory status. - Pulse ox 99% today in the office - F/U in 6 months 3. Benign hypertension with chronic kidney disease, stage III (I12.9: Hypertensive chronic kidney disease with stage 1 through stage 4 chronic kidney disease, or unspecified chronic kidney disease) - Continue monitoring blood pressure, adjust antihypertensive therapy as needed. 4. Diabetic nephropathy (E11.21: Type 2 diabetes mellitus with diabetic nephropathy) - Monitor neuropathy symptoms, consider referral to podiatry for foot care. Orders: 1126F Pain severity quantified; no pain present Body Mass Index (BMI) documented 3008F Current tobacco non-user 1036F Diabetic Foot Exam Functional status assessed 1170F HBA1C <7.0 Most Recent Level 3044F Medication list documented in medical record 1159F Most recent LDL-C < 100 mg/Dl 3048F Review of all meds by a prescribing practitioner or clinical pharmacist documented in EHR 1160F Follow-up With When Contact Information JANET HERNÁNDEZ CNP, GEOVANNA Within 6 months [address] [place] [phone] Business (1) Additional Instructions: Diabetes Patient Education Chronic Kidney Disease, Ad (more content not included)... Normal [facility] Comment on above: Result Comment: Elec tronically Signed By: JANET HERNÁNDEZ CNP\.br\Date and Time Signed: 09/28/24 10:56 EDT XR Spine Lumbosacral Minimum 4 Viewson 09-05-2024 XR Spine Lumbosacral Minimum 4 Views Exam Date/Time: 09/04/2024 08:50 EDT Reason for Exam: M54.50 low back pain, unspecified;Pain, Non Traumatic Report IMPRESSION: NO ACUTE OSSEOUS ABNORMALITY. MILD DEGENERATIVE CHANGES. EXAMINATION: XR Spine Lumbosacral Minimum 4 Views TECHNIQUE: AP, lateral, bilateral oblique views of the lumbar spine and AP and lateral coned down view of the lumbosacral junction HISTORY: Low back pain COMPARISONS: None available. FINDINGS: Lumbar spine alignment is within normal limits. Lumbar vertebral body heights are maintained. Intervertebral disc heights are preserved. Facet arthropathy of the lower lumbar spine. Minimal multilevel degenerative endplate spurring. No acute fracture. No spondylolysis or spondylolisthesis. Multiple round heterogenous calcifications project over the pelvis and are likely phleboliths however if there is concern for urinary tract calculi, CT of the abdomen and pelvis without contrast is recommended to further evaluate. Atherosclerotic calcification of the abdominal aorta. Ordering Provider: JANET HERNÁNDEZ FINAL REPORT Dictated: 09/05/2024 9:57 am Julio César Castrejon DO Signed (Electronic Signature): 09/05/2024 9:57 am Signed by: Julio César Castrejon DO Transcribed by: VILLA Technologist: JENNIFER [facility] Family Medicine Office/Clini c Noteon 08-31-2024 Family Medicine Office/Clinic Note Family Medicine Office/Clinic Note Chief Complaint bad kidney pain The patient presents with severe lumbar pain and associated kidney pain. HPI Staff Pato is a 64 year old female presenting for bad kidney pain Onset: about a month ago, increasingly worse Characteristics: stabbing, burning Relieved by: Associated Symptoms:_ Wants right ear looked at Having issues with incontinence History of Present Illness 64 year old patient of Dr. Burger presents today for an acute visit for kidney pain she reports the pain to be in her lumbar area and the pain began approximately one month ago and has been severe, rated as 10/10 at times, causing significant distress and impacting daily activities. The pain is described as burning and is exacerbated by certain movements, such as bending and twisting. The patient reports episodes of incontinence, raising concerns about potential nerve involvement due to spinal compression. The kidney pain was initially suspected to be related to a urinary tract infection, but tests showed no nitrites or leukocytes, indicating no infection. The pain is now attributed to lumbar issues rather than renal causes. The patient has a history of diabetes mellitus, which is poorly controlled, with morning blood glucose levels often elevated due to stress and pain. Proteinuria was noted, suggesting possible diabetic nephropathy. The patient is a former smoker, which may contribute to her overall health status. Review of Systems PHQ Score Initial Depression Screen Score: 0 SCORE - Musculoskeletal: Reports severe lumbar pain, rated 10/10, exacerbated by movement. - Genitourinary: Denies urgency, burning with urination; reports incontinence episodes. - Endocrine: Reports elevated morning blood glucose levels. Physical Exam Vitals & Measurements HR: 84(Peripheral) BP: 164/92 SpO2: 97% HT: 161.5 cm HT: 64 in WT: 78.9 kg WT: 173.945 lb BMI: 30.25 General: alert, no acute distress Skin: warm, dry Head: no trauma, normocephalic EAR: RIght ear clear Neck: Trachea midline, no adenopathy, no tenderness Eye: normal conjunctiva, sclera clear Cardiovascular: regular rate and rhythm, normal peripheral perfusion Respiratory: Lungs CTA, respirations non labored Gastrointestinal: no CV tenderness Musculoskeletal: Lumbar spine examination revealed pain upon certain movements, including bending and twisting, with specific maneuvers causing increased discomfort. Back: No tenderness, Normal ROM, Normal alignment. Neurological: oriented x 4, LOC appropriate for age speech normal Assessment/Plan 1. Lumbar pain (M54.50: Low back pain, unspecified) - Plan includes ordering a lumbar spine x-ray to assess for disc compression. - Administered Toradol injection for pain management. - Prescribed tramadol 50 mg for short-term pain relief, to be taken every 8 hours as needed. - Medication Agreement & UDS completed today in the office - OARRS reviewed and found to be appropriate - Awaiting Xray results Ordered: tramadol, 1-2 tabs, Oral, q8hr, PRN Pain, # 24 tab(s), Refills(s) 0, [id number], 161.5, cm, 08/31/24 11:23:00 EDT, Height/Length Dosing, 78.9, kg, 08/31/24 11:23:00 EDT, Weight Dosing XR Spine Lumbosacral Minimum 4 Views 2. Kidney pain (N23: Unspecified renal colic) - Kidney pain is suspected to be related to lumbar issues rather than renal causes. Ordered: ketorolac, 60 mg = 2 mL, Injection, IntraMuscular, Once, Stop date 08/31/24 11:44:00 EDT, Routine, Start date 08/31/24 11:44:00 EDT, 08/31/24 11:44:00 EDT 1125F Pain severity quantified; pain present Current tobacco non-user 1036F Medication list documented in medical record 1159F Most recent diastolic blood pressure >=90 mm Hg 3080F Most recent systolic blood pressure >= 140 mm Hg 3077F Urnls Dip Stick Auto w/o Microscopy POC 33526 3. Former smoker (Z87.891: Personal history of nicotine dependence) - Encouraged to continue as a non-smoker 4. BMI 30.0-30.9,adult (Z68.30: Body mass index [BMI] 30.0-30.9, adult) The standard range for ages 18 and older is >=18.5 and < 25 kg/m2. Your BMI today was above this range, this falls in the overweight to obese category and there are medical benefits to weight loss. We can offer counselling, referral, and/or medical support in addressing this problem. Your BMI and weight management will be followed at subsequent visits. Follow-up With When Contact Information Dandre Burger Within 2 to 4 weeks [address] [place] [address] Business (2) Additional Instructions: Lumbar pain Patient Education Chronic Back Pain, [id number] Problem List/Past Medical History Ongoing Back pain Benign hypertension with chronic kidney disease, stage III BMI 30.0-30.9,adult Chronic obstructive pulmonary disease Cigarette nicotine dependence Coronary artery disease Current every day smoker Diabetic nephropathy Essential hypertension Family history of colo (more content not included)... Normal [facility] Comment on above: Result Comment: Elec tronically Signed By: JANET HERNÁNDEZ CNP\.br\Date and Time Signed: 08/31/24 12:05 EDT Ambulatory Visit Summaryon 0 06-29-2024 Ambulatory Visit Summary Ambulatory Visit Summary PATO CORRAL :1960 Visit Date:06/29/2024 Ambulatory Visit Instructions Your Diagnosis Back pain Benign hypertension with chronic kidney disease, stage III Chronic obstructive pulmonary disease Coronary artery disease Diabetic nephropathy Essential hypertension Type 2 diabetes mellitus with hyperlipidemia Polyneuropathy BMI 30.0-30.9,adult Obesity (BMI 30-39.9) Former smoker Age-related osteoporosis without current pathological fracture Chronic kidney disease, stage 3 unspecified Hyperlipidemia, unspecified Your Care Team Attending Physician - Dnadre Burger MD Primary Care Physician - Dandre Burger MD This Is Your Medications List Contact prescribing physician if questions or concerns Misc Prescription (FreeStyle Kailey 2 Sensor) Misc Prescription (Misc DME Prescription) alendronate (Fosamax 70 mg Tab) aspirin (aspirin 81 mg Oral EC Tab) atorvastatin (atorvastatin 80 mg Tab) buPROPion (Wellbutrin SR 150 mg Tab-ER) carvedilol (carvedilol 25 mg Tab) docusate (Colace 100 mg Cap) dulaglutide (Trulicity Pen 4.5 mg/0.5 mL subcutaneous solution) duloxetine (Cymbalta 60 mg oral delayed release capsule) gabapentin (gabapentin 400 mg Cap) insulin glargine (Basaglar KwikPen 100 units/mL subcutaneous solution) lisinopril (lisinopril 2.5 mg Tab) metformin-sitagliptin (Janumet 50 mg/1000 mg oral tablet) multivitamin (Multi Vitamins oral tablet) Procedures Performed Colonoscopy (05/04/2016), CABG x 4 - Coronary artery bypass grafts x 4, Carpal tunnel release, section, section, section, Cholecystectomy, Excision of lipoma of back, Vaginal total hysterectomy. Discharge Vitals Temperature (Tympanic) 36.8 ???C Heart Rate (Peripheral) 84 Respiratory Rate 20 Blood Pressure 128/82 Height 161.5 cm Height 64 in Weight 78.4 kg Weight 172.842 lb BMI 30.06 What to do next Scheduled Follow-Up Appointments 2024 7:40 AM EDT With: Tao GTZ, Dandre Taylor Where: [address] [id number] 8:00 AM EST With: Where: [address] [id number]- Medications What How Much When Why Instructions Unchanged alendronate (Fosamax 70 mg Tab) 1 Tablets By Mouth Every 7 days Osteoporosis Contact prescribing physician if questions or concerns [...] concerns Unchanged carvedilol (carvedilol 25 mg Tab) See instructions TAKE 1 AND 1/ 2 TABLETS BY MOUTH TWO TIMES A DAY Contact prescribing physician if questions or concerns Unchanged docusate (Colace 100 mg Cap) 1 Capsules By Mouth Every day as needed for for constipation Contact prescribing physician if questions or concerns Unchanged dulaglutide (Trulicity Pen 4.5 mg/ 0.5 mL subcutaneous solution) 4.5 Milligram Subcutaneous Every week Contact prescribing physician if questions or concerns Unchanged duloxetine (Cymbalta 60 mg oral delayed release capsule) 1 Capsules By Mouth Every day Contact prescribing physician if questions or concerns Unchanged gabapentin (gabapentin 400 mg Cap) 1 Capsules By Mouth 3 times a day Contact prescribing physician if questions or concerns Unchanged insulin glargine (Basaglar KwikPen 100 units/ mL subcutaneous solution) See instructions inject 15 units subcutaneously twice a day Contact prescribing physician if questions or concerns Unchanged lisinopril (lisinopril 2.5 mg Tab) See instructions TAKE 1 TABLET BY MOUTH DAILY Contact prescribing physician if questions or concerns Unchanged metformin-sitagliptin (Janumet 50 mg/ 1000 mg oral tablet) 1 Tablets By Mouth 2 times a day Contact prescribing physician if questions or concerns Unchanged Misc Prescription (FreeStyle Kailey 2 Sensor) See instructions Apply new sensor to upper back arm q 14days Contact prescribing physician if questions or concerns Unchanged Misc Prescription (Misc DME Prescription) See instructions Droplet 32G x 1/ 4 needles. Use to inject insulin sub q twice a day Contact prescribing physician if questions or concerns Unchanged multivitamin (Multi Vitamins oral tablet) 1 Tablets By Mouth Every day Contact prescribing physician if questions or concerns Allergies No Known Medication Allergies Problems Ongoing - Any problem that you are currently receiving treatment for. Back pain Benign hypertension with chronic kidney disease, stage III BMI 30.0-30.9,adult (more content not included)... Normal [facility] Family Medicine Office/Clini c Noteon 06-29-2024 Family Medicine Office/Clinic Note Family Medicine Office/Clinic Note Chief Complaint 3m follow up - Patient presents for follow-up of chronic conditions, including hypertension, diabetes mellitus, and recent complaints of back pain. HPI Staff 3m follow up Trulicity increased to 4.5mg wkly @ [facility]. Patient is here for follow up on Diabetes. How often are you checking your blood sugars? _ yes What are your average readings? _120-140 Paresthesias, Ulcerations or sores? no Lisinopril, aspirin, statin therapy? Yes Foot Exam: 01/04/24 Eye Exam: 02/2024 Last A1c: Hgb A1C %: 7.3 % High (04/06/24 09:29:00) Hgb A1c POC: 6.3 % (07/05/23 10:51:00) LDCT 06/21/24 NEG Mammogram 06/01/24 Questions/Concerns: No refills. No concerns. History of Present Illness - The patient is a 63-year-old female presenting with follow-up for chronic conditions including hypertension, diabetes mellitus, and recent back pain concerns. - Hypertensive chronic kidney disease. Regular follow-up management. No new hypertension issues reported. - Coronary artery disease under annual monitoring with associate director data & analytics. No angina or shortness of breath. - Back pain: Recent occurrence, details of symptoms were not elaborated. - Diabetes management: Blood glucose monitoring with a recent morning glucose of 176 mg/dL. Advised to target blood glucose levels between 145-165 mg/dL. - Osteoporosis medication adherence challenge. Alendronate prescription, adherence issues noted. - Former smoker. Quit smoking one month ago from three packs per day to cessation. - COPD misclassification identified. No symptoms or inhaler use reported. - Encourage adherence to diabetes management with correct fasting glucose levels. - Monitor kidney disease progression. - Reinforce adherence to osteoporosis medication regimen. - Acknowledged successful smoking cessation which reduces risk factors for cardiovascular and pulmonary disease. - Regular cardiac monitoring for coronary artery disease. Review of Systems PHQ Score Initial Depression Screen Score: 0 SCORE Physical Exam Vitals & Measurements T: 36.8 ???C(Tympanic) HR: 84(Peripheral) RR: 20 BP: 128/82 SpO2: 99% HT: 161.5 cm HT: 64 in WT: 78.4 kg WT: 172.842 lb BMI: 30.06 General: alert, no acute distress ENMT: oral mucosa moist Cardiovascular: Regular rate and rhythm, normal peripheral perfusion Respiratory: Lungs clear to auscultation, respirations non labored Extremities: no deformity, no trauma Neurological: oriented x 4, level of consciousness appropriate for age, CN II-XII intact, motor strength equal & normal bilaterally, speech normal Abdomen: Soft, Non-tender, Non-distended, + Bowel sounds Assessment/Plan 1. Back pain (M54.9: Dorsalgia, unspecified) - Monitor symptoms. - Follow-up if persistent. 2. Benign hypertension with chronic kidney disease, stage III (I12.9: Hypertensive chronic kidney disease with stage 1 through stage 4 chronic kidney disease, or unspecified chronic kidney disease) - Continuation of current antihypertensive regimen. - Renal function monitoring. 3. Chronic obstructive pulmonary disease (J44.9: Chronic obstructive pulmonary disease, unspecified) - Pt states she does not have this. - We will remove - Does have diminished breath sounds 4. Coronary artery disease (I25.10: Atherosclerotic heart disease of [place] coronary artery without angina pectoris) - Continue annual associate director data & analytics reviews. - Monitor cardiac medications. 5. Diabetic nephropathy (E11.21: Type 2 diabetes mellitus with diabetic nephropathy) - Will recheck at one year labs 6. Essential hypertension (I10: Essential (primary) hypertension) - Well controlled on meds. 7. Type 2 diabetes mellitus with hyperlipidemia (E11.69: Type 2 diabetes mellitus with other specified complication) - Blood glucose targets encouraged. - Lifestyle modifications reinforced. Ordered: A1c POC 03040 Body Mass Index (BMI) documented 3008F Current tobacco non-user 1036F Depression Screening Negative 3352F Diabetic Foot Exam 2028F Discharge medications reconciled with current medications in outpatient record 1111F HBA1C 7.0 to <8.0 Most Recent Level 3051F Influenza immunization status assessed 1030F Medication list documented in medical record 1159F Most recent diastolic blood pressure 80-89 mm Hg 3079F Most recent LDL-C < 100 mg/Dl 3048F Patient screen for fall risk: no falls in last year or 1 fall with no injury in last year 1101F Review of all meds by a prescribing practitioner or clinical pharmacist documented in EHR 1160F Screening mammography documented and reviewed 3014F Systolic BP <130 mm Hg (Most Recent) 3074F 8. Polyneuropathy (G62.9: Polyneuropathy, unspecified) - Stable 9. BMI 30.0-30.9,adult (Z68.30: Body mass index [BMI] 30.0-30.9, adult) - Regular BMI monitoring. - Discuss weight management benefits. 10. Obesity (BMI 30-39.9) (E66.9: Obesity, unspecified) - Diet and exercise advised. (more content not included)... Normal [facility] Comment on above: Result Comment: Elec tronically Signed By: Tao GTZ, Dandre Solano.jose\Date and Time Signed: 06/29/24 08:[address] Chest, Low Dose Screening on 06-21-2024 CT Chest, Low Dose Screening Exam Date/Time: 06/21/2024 16:57 EDT Reason for Exam: Screening;F17.200 Report IMPRESSION: Lung RADS category 1: Negative. No nodules and/or definitely benign nodules. Continue annual screening with screening CT chest in [address] IMAGING OF THE CHEST WITHOUT INTRAVENOUS CONTRAST MEDIUM. HISTORY: Tobacco use. TECHNICAL FACTORS: Low dose CT imaging of the chest was obtained and formatted as 2.5 mm contiguous axial images from the thoracic inlet through the adrenal glands. Sagittal and coronal reconstructions obtained during postprocessing. Intravenous contrast medium: None. Comparison: None FINDINGS: Right lung: No nodules, masses, consolidation, pleural effusion, pneumothorax. Left lung: No nodules, masses, consolidation, pleural effusion, pneumothorax. Mild scarring left lung base. Lymph nodes: No hilar, mediastinal, or axillary lymph node enlargement. Thoracic aorta: Normal in course and caliber. Cardiac: Median sternotomy. Cardiac size normal. No pericardial effusion. Coronary artery calcification identified. Upper abdomen:Limited imaging upper abdomen shows no gross anomaly. Musculoskeletal:No osteoblastic, and no osteolytic lesions. All CT scans at this facility use dose modulation, iterative reconstruction, and/or weight based dosing when appropriate to reduce radiation dose to as low as reasonably achievable. Report Ordering Provider: Dandre Burger FINAL REPORT Dictated: 06/21/2024 5:07 pm Diony Herrera MD Signed (Electronic Signature): 06/21/2024 5:07 pm Signed by: Diony Herrera MD Transcribed by: VILLA Technologist: NICKIE Rod [facility] [place] Mamm Screen w/CAD if perf and 3D [place] 06-02-2024 MA Mamm Screen w/CAD if perf and 3D [place] Exam Date/Time: 06/01/2024 12:02 EDT Reason for Exam: Z12.31;Screening Report IMPRESSION: BIRADS 1 NEGATIVE, NORMAL INTERVAL FOLLOW-UP. CLINICAL HISTORY: Screening. COMPARISON: Prior from 2022. RESULT: Digital mammography and 3D tomosynthesis of bilateral breasts was performed. Category B - There are scattered areas of fibroglandular density. There is no suspicious mass, asymmetry, architectural distortion, or calcification. Vascular calcifications: Absent. CAD analysis was performed and used in the interpretation. Dense Breast: No Follow-up: 12 MONTH RECALL. Board Certified Radiologists. Accredited by the ACR and FDA. MAMMOGRAPHY IS VERY IMPORTANT TO YOUR HEALTH. THE [place] [employer] GUIDELINES RECOMMEND THAT WOMEN 40 YEARS OF AGE AND OLDER SHOULD HAVE A MAMMOGRAM EVERY YEAR. A REMINDER LETTER WILL BE SENT AT THE APPROPRIATE TIME. THIS FACILITY UTILIZES A REMINDER SYSTEM TO ENSURE ALL PATIENTS RECEIVE REMINDER NOTIFICATIONS AT THE APPROPRIATE TIME BASED ON THE RECOMMENDATIONS OF THIS EXAM. THIS INCLUDES REMINDERS FOR ROUTINE SCREENING MAMMOGRAMS, DIAGNOSTIC MAMMOGRAMS IN WHICH THE PATIENT IS ASKED TO RETURN FOR ADDITIONAL VIEWS, OR OTHER BREAST IMAGING INTERVENTIONS WHEN APPROPRIATE. THE PATIENT WILL BE PLACED IN THE APPROPRIATE REMINDER SYSTEM INCLUDING A REMINDER AT THE APPROPRIATE TIME FOR ANY PENDING ADDITIONAL VIEWS. Report Ordering Provider: Dandre Burger FINAL REPORT Dictated: 06/02/2024 10:35 am Tristen Castañeda MD Signed (Electronic Signature): 06/02/2024 10:35 am Signed by: Tristen Castañeda MD Transcribed by: VILLA Technologist: BUCK Assessment: BI-RADS Category 1-Negative Recommendation: Normal interval follow-up Normal [facility] Ambulatory Visit Summaryon 0 05-11-2024 Ambulatory Visit Summary Ambulatory Visit Summary PATO CORRAL :1960 Visit Date:05/11/2024 Ambulatory Visit Instructions Your Diagnosis Encounter for Medicare annual examination with abnormal findings Breast cancer screening by mammogram Diabetic nephropathy Chronic obstructive pulmonary disease Kidney disease, chronic, stage III (moderate, EGFR 30-59 ml/min), Chronic kidney disease, stage 3 unspecified Long-term insulin use Major depressive disorder, single episode, moderate Type 2 diabetes mellitus with hyperlipidemia Type 2 diabetes mellitus with stage 3 chronic kidney disease Current every day smoker Essential hypertension Hyperlipidemia, Hyperlipidemia, unspecified Advanced directives, counseling/discussion Obesity due to excess calories Your Care Team Attending Physician - Dandre Burger MD Primary Care Physician - Dandre Burger MD. This Is Your Medications List Misc Prescription (FreeStyle Kailey 2 Sensor) Misc Prescription (Misc DME Prescription) aspirin (aspirin 81 mg Oral EC Tab) atorvastatin (atorvastatin 80 mg Tab) buPROPion (Wellbutrin SR 150 mg Tab-ER) carvedilol (carvedilol 25 mg Tab) docusate (Colace 100 mg Cap) dulaglutide (Trulicity Pen 4.5 mg/0.5 mL subcutaneous solution) duloxetine (Cymbalta 60 mg oral delayed release capsule) gabapentin (gabapentin 400 mg Cap) insulin glargine (Basaglar KwikPen 100 units/mL subcutaneous solution) lisinopril (lisinopril 2.5 mg Tab) metformin-sitagliptin (Janumet 50 mg/1000 mg oral tablet) multivitamin (Multi Vitamins oral tablet) Procedures Performed Colonoscopy (05/04/2016), CABG x 4 - Coronary artery bypass grafts x 4, Carpal tunnel release, section, section, section, Cholecystectomy, Excision of lipoma of back, Vaginal total hysterectomy. Discharge Vitals Heart Rate (Peripheral) 62 Blood Pressure 140/70 Height 64 in Height 161.5 cm Weight 175.929 lb Weight 79.8 kg BMI 30.6 What to do next Scheduled Follow-Up Appointments 2024 12:15 PM EST With: Where: [facility] 2024 8:15 AM EDT With: Tao GTZ, Dandre Taylor Where: [address] [id number]- [id number] 8:00 AM EST With: Where: [address] [address]- You Need to Complete the Following CT Chest, Low Dose Screening, 05/11/24, Routine, Order for future visit, Transport Mode: Ambulatory, Reason: Screening, Yes, Yes, Yes, 1, 35, Yes, 0, [id number], No, No, Yes, Current every day smoker, last LDCT 06/17/2023 at [facility]. [facility] are pushing images to [facility]. Please schedule aft... [place] Mamm Screen w/CAD if perf and 3D [place], 05/18/24, Routine, Order for Future Visit, Transport Mode: Ambulatory, Reason: Screening, Reason: Z12.31, No, No, No, Breast cancer screening by mammogram, pp_set_radiology_subsp ecialty, Required & Missing, [facility] Medications What How Much When Instructions Unchanged aspirin (aspirin 81 mg Oral EC Tab) 1 Tablets By Mouth Every day Unchanged atorvastatin (atorvastatin 80 mg Tab) 1 Tablets By Mouth Every day Unchanged buPROPion (Wellbutrin SR 150 mg Tab-ER) 1 Tablets By Mouth Every day Unchanged carvedilol (carvedilol 25 mg Tab) See instructions TAKE 1 AND 1/ 2 TABLETS BY MOUTH TWO TIMES A DAY Unchanged docusate (Colace 100 mg Cap) 1 Capsules By Mouth Every day as needed for for constipation Unchanged dulaglutide (Trulicity Pen 4.5 mg/ 0.5 mL subcutaneous solution) 4.5 Milligram Subcutaneous Every week Unchanged duloxetine (Cymbalta 60 mg oral delayed release capsule) 1 Capsules By Mouth Every day Unchanged gabapentin (gabapentin 400 mg Cap) 1 Capsules By Mouth 3 times a day Unchanged insulin glargine (Basaglar KwikPen 100 units/ mL subcutaneous solution) See instructions inject 15 units subcutaneously twice a day Unchanged lisinopril (lisinopril 2.5 mg Tab) See instructions TAKE 1 TABLET BY MOUTH DAILY Unchanged metformin-sitagliptin (Janumet 50 mg/ 1000 mg oral tablet) 1 Tablets By Mouth 2 times a day Unchanged Misc Prescription (FreeStyle Kailey 2 Sensor) See instructions Apply new sensor to upper back arm q 14days Unchanged Misc Prescription (Misc DME Prescription) See instructions Droplet 32G x 1/ 4 needles. Use to inject insulin sub q twice a day Unchanged multivitamin (Multi Vitamins oral tablet) 1 Tablets By Mouth Every day Allergies No Known Medication Allergies Problems Ongoing - Any problem that you are currently receiving treatment for. Back pain Benign hypertension with chronic kidney disease, stage III BMI 30.0-30.9,adult BMI 36.0-36.9,adult Chronic obstructive pulmonary disease Cigarette nicotine dependence Coronary artery disease Current every day smoker Diabetic nephropathy Essential hypertension Family history of colon ca (more content not included)... Normal [facility] Family Medicine Office/Clini c Noteon 05-11-2024 Family Medicine Office/Clinic Note Family Medicine Office/Clinic Note Chief Complaint Subsequent Medicare Wellness Physical Exam Vitals & Measurements HR: 62(Peripheral) BP: 140/70 SpO2: 93% HT: 161.5 cm HT: 64 in WT: 79.8 kg WT: 175.929 lb BMI: 30.6 Procedure I was in the office and available for consultation and to provide direct supervision at the time of this visit. I have provided supervision of the care team and have reviewed this chart and office note and agree with the plan of care. Assessment/Plan 1. Encounter for Medicare annual examination with abnormal findings (Z00.01: Encounter for general adult medical examination with abnormal findings) The patient was given a customized and personalized print out of all the current AHRQ USPSTF???s recommendations for preventative services and all current CDC recommended immunizations, relevant risk recommendations and the following patient brochures were given. Reviewed Medicare Prevention Services checklist. [facility] Prevention and home safety screening reviewed. Patient denies any falls in last 12 months, voices no worry about falling. Exhibits no problems with sitting, standing or ambulation. Patient aware with keeping walk way area free of clutter to prevent tripping and/or falling. [place] Advance Directives reviewed. See #13. Patient denies any problems with ADL???s and Instrumental ADL???s. Cognitive screening completed with memory and clock face drawing. No deficits noted. Immunization record reviewed, discussed Shingrix vaccine have been previously administered. 2 COVID vaccines have been administered, with 1 Booster received. Allergies and medications reviewed and up to date. No concerns with taking medication as prescribed. Reviewed OTC medications, medication list up to date. Blood tests were reviewed: UTD. No concerns with bowel/ bladder. Colonoscopy last completed 08/26/[address] Joyce. Repeat 2027. Reviewed pain symptoms: Patient denies pain. Reviewed all outside providers that patient follows. Last visit summary notes available in chart and/or have been requested. Patient declines any signs or symptoms of depression at this time. 8 minutes spent with screening and documentation. PHQ2 screening score 2. Patient denies alcohol use. 8 minutes spent with screening and documentation. Audit score 0. Follow up scheduled with PCP, 06/29/2024 AWV has been scheduled, 05/14/2025 Abnormal findings with elevated BP Medicare provides yearly screening for alcohol and depression concerns. This is completed during our Medicare wellness visit for those who do not have a current diagnosis of depression or concerns with alcohol use. I spent a total of 17 minutes on this date of service which included preparing to see the patient, face to face patient care, completing clinical documentation, obtaining and/or reviewing separately obtained history, counseling and educating the patient with handouts. Explanations were provided with reviewing questionnaires. AUDIT risk assessment screening completed, risk score 0 with patient denying concerns with use. Completed PHQ-2 risk assessment for depression with risk score 2, negative findings. Patient has been reminded to notify the provider if there would be a change or concerns with symptoms with fear, unable to sleep, worrying too much or feeling down and/or sad with lost of interest with daily activities. Will continue to monitor with screening yearly during Medicare wellness visits. 2. Breast cancer screening by mammogram (Z12.31: Encounter for screening mammogram for malignant neoplasm of breast) Recommended mammogram screening discussed with patient during today's Medicare Wellness visit. Patient reminded with the importance of continued Breast Self-Awareness at home. Easy to read demonstration on how to perform a self breast exam: What to look for and feel for was reviewed and provided to patient. Mammogram ordered and has been scheduled with [facility] 05/18/2024. Pt has been advised no deodorant, sprays or lotions. Patient previously has had mammograms at [facility], images have been requested to be pushed to [facility]. 3. Diabetic nephropathy (E11.21: Type 2 diabetes mellitus with diabetic nephropathy) Patient follows pcp for medication and symptom management. 4. Chronic obstructive pulmonary disease (J44.9: Chronic obstructive pulmonary disease, unspecified) Patient denies SOB. Patient follows pcp as directed. Encouraged to remain active, reviewed Pulmonary nutritional recommendations handout during visit. Will continue to monitor for changes and/or concerns with office visits. Pulse ox today was 93%. 5. Kidney disease, chronic, stage III (moderate, EGFR 30-59 ml/min), (N18.30: Chronic kidney disease, stage 3 unspecified)Chronic kidney disease, stage 3 unspecified Reviewed health kidney nutritional handout with importance of preventing strain on the kidneys. Monitor sodium intake daily, educational handout reviewed and provided to assist the patient with a better understanding which types of fo (more content not included)... Normal [facility] Comment on above: Result Comment: Elec tronically Signed By: JANET HERNÁNDEZ CNP\.br\Date and Time Signed: 05/11/24 10:34 EST\.br\Electronically Co-Signed By: Radha Claros\.br\Date and Time Co-Signed: 05/11/24 10:12 EST Ambulatory Visit Summaryon 0 04-06-2024 Ambulatory Visit Summary Ambulatory Visit Summary ELLISMONALISASA Aleman :1960 Visit Date:04/06/2024 Ambulatory Visit Instructions Your Diagnosis Chronic obstructive pulmonary disease Diabetic nephropathy Kidney disease, chronic, stage III (moderate, EGFR 30-59 ml/min) Type 2 diabetes mellitus with hyperlipidemia Long-term insulin use Major depressive disorder, single episode, moderate Smoker BMI 30.0-30.9,adult Exogenous obesity Hyperlipidemia, unspecified Your Care Team Attending Physician - Dandre Burger MD Primary Care Physician - Dandre Burger MD This Is Your Medications List dulaglutide (Trulicity Pen 4.5 mg/0.5 mL subcutaneous solution) gabapentin (gabapentin 400 mg Cap) Contact prescribing physician if questions or concerns Misc Prescription (FreeStyle Kailey 2 Sensor) Misc Prescription (Misc DME Prescription) aspirin (aspirin 81 mg Oral EC Tab) atorvastatin (atorvastatin 80 mg Tab) buPROPion (Wellbutrin SR 150 mg Tab-ER) carvedilol (carvedilol 25 mg Tab) docusate (Colace 100 mg Cap) duloxetine (Cymbalta 60 mg oral delayed release capsule) insulin glargine (Basaglar KwikPen 100 units/mL subcutaneous solution) lisinopril (lisinopril 2.5 mg Tab) metformin-sitagliptin (Janumet 50 mg/1000 mg oral tablet) multivitamin (Multi Vitamins oral tablet) Procedures Performed Colonoscopy (05/04/2016), CABG x 4 - Coronary artery bypass grafts x 4, Carpal tunnel release, section, section, section, Cholecystectomy, Excision of lipoma of back, Vaginal total hysterectomy. Discharge Vitals Temperature (Oral) 36.3 ???C Heart Rate (Peripheral) 85 Respiratory Rate 18 Blood Pressure 138/82 Height 160.0 cm Height 63 in Weight 78.8 kg Weight 173.724 lb BMI 30.78 What to do next Scheduled Follow-Up Appointments 2024 8:00 AM EST With: Where: [place] [id number] 2024 8:15 AM EDT With: Dandre Burger MD Where: [address] [address]- You Need to Complete the Following HgbA1c, Blood, Routine collect, 04/06/24, Order for future visit, Lab Collect, Chronic obstructive pulmonary disease Diabetic nephropathy Kidney disease, chronic, stage III (moderate, EGFR 30-59 ml/min) Type 2 diabetes mellitus with hyperlipidemia Eliezer... Medications What How Much When Instructions Changed dulaglutide (Trulicity Pen 4.5 mg/ 0.5 mL subcutaneous solution) 4.5 Milligram Subcutaneous Every week Pickup at [facility] [id number] Unchanged gabapentin (gabapentin 400 mg Cap) 1 Capsules By Mouth 3 times a day Pickup at [facility] [id number] Unchanged aspirin (aspirin 81 mg Oral EC [...] concerns Unchanged carvedilol (carvedilol 25 mg Tab) See instructions TAKE 1 AND 1/ 2 TABLETS BY MOUTH TWO TIMES A DAY Contact prescribing physician if questions or concerns Unchanged docusate (Colace 100 mg Cap) 1 Capsules By Mouth Every day as needed for for constipation Contact prescribing physician if questions or concerns Unchanged duloxetine (Cymbalta 60 mg oral delayed release capsule) 1 Capsules By Mouth Every day Contact prescribing physician if questions or concerns Unchanged insulin glargine (Basaglar KwikPen 100 units/ mL subcutaneous solution) See instructions inject 15 units subcutaneously twice a day Contact prescribing physician if questions or concerns Unchanged lisinopril (lisinopril 2.5 mg Tab) See instructions TAKE 1 TABLET BY MOUTH DAILY Contact prescribing physician if questions or concerns Unchanged metformin-sitagliptin (Janumet 50 mg/ 1000 mg oral tablet) 1 Tablets By Mouth 2 times a day Contact prescribing physician if questions or concerns Unchanged Misc Prescription (FreeStyle Kailey 2 Sensor) See instructions Apply new sensor to upper back arm q 14days Contact prescribing physician if questions or concerns Unchanged Misc Prescription (Misc DME Prescription) See instructions Droplet 32G x 1/ 4 needles. Use to inject insulin sub q twice a day Contact prescribing physician if questions or concerns Unchanged multivitamin (Multi Vitamins oral tablet) 1 Tablets By Mouth Every day Contact prescribing physician if questions or concerns Pharmacy Information [facility] [id number]: [address] [place], [place] [phone] Allergies No Known Medication Allergies Problems Ongoing - Any problem that you are currently receiving treatment for. Back pain Benign hypertension (more content not included)... Normal [facility] CHEMISTRYOrdered By: Marcos Ramirez on 04-06-2024 HbA1c (Bld) [Mass fraction] 7.3 % High <=5.9% [facility] Chem[employer] Family Medicine Office/Clini c Noteon 04-06-2024 Family Medicine Office/Clinic Note Family Medicine Office/Clinic Note Chief Complaint Concern about lack of weight loss over three months. HPI Staff Pato is a 63 year old presenting with 3 month f/u Do you have any of the following symptoms? Foot Exam: JUVE Eye Exam: February 2024 Last A1C 7.2 % (04/05/23) A1C POC 6.3 % (07/05/23) Statin: Atorvastatin 80 mg Needed- Gabapentin this is the only one for sure History of Present Illness The patient is a 63-year-old female presenting with concerns about weight management and diabetes follow-up. She is currently diagnosed with Type 2 diabetes mellitus with hyperlipidemia, exogenous obesity, and major depressive disorder. Despite efforts, the patient reports no weight loss in the past three months, citing holiday disruptions and difficulty adhering to dietary guidelines. Her A1c was last recorded at 7.3 but is anticipated to be higher at this visit. Management efforts have included the use of Trulicity and Basaglar for diabetes control, alongside gabapentin for polyneuropathy, which the patient notes is effective. The patient is a smoker and has been attempting weight loss without success, contributing to self-reported depressive symptoms. The conversation also reveals a stable but not significantly improved depressive state over the last few months. Discussions noted the absence of renal function results necessary for diabetic nephropathy monitoring. The patient has chronic kidney disease, stage 3, and acknowledges reliance on family support for adherence to health recommendations. - Discussion of weight management strategies, including dietary aspects of carbohydrate, protein, and sugar intake. - Addressing smoking status, including encouragement for cessation. - Review of diabetes management and suggestions for potential Trulicity dosage increase. - Monitoring of blood pressure was noted, with current readings at goal. Review of Systems PHQ Score Initial Depression Screen Score: 0 SCORE - Psychiatric: Reports feelings of sadness related to weight management efforts. - General: Denies recent weight loss. Physical Exam Vitals & Measurements T: 36.3 ???C(Oral) HR: 85(Peripheral) RR: 18 BP: 138/82 SpO2: 98% HT: 63 in HT: 160.0 cm WT: 78.8 kg WT: 173.724 lb BMI: 30.78 General: alert, no acute distress ENMT: oral mucosa moist Cardiovascular: Regular rate and rhythm, normal peripheral perfusion Respiratory: Lungs clear to auscultation, respirations non labored Extremities: no deformity, no trauma Neurological: oriented x 4, level of consciousness appropriate for age, CN II-XII intact, motor strength equal & normal bilaterally, speech normal Abdomen: Soft, Non-tender, Non-distended, + Bowel sounds Assessment/Plan 1. Chronic obstructive pulmonary disease (J44.9: Chronic obstructive pulmonary disease, unspecified) Stable. NO SOB today. Continue on meds as before. Ordered: HgbA1c 2. Diabetic nephropathy (E11.21: Type 2 diabetes mellitus with diabetic nephropathy) Ensure renal function monitoring continues. Await lab results for comprehensive renal evaluation and adjust diabetes management accordingly. Ordered: HgbA1c 3. Kidney disease, chronic, stage III (moderate, EGFR 30-59 ml/min) (N18.30: Chronic kidney disease, stage 3 unspecified) Monitor kidney function through regular testing and consider medication review to manage renal health. Ordered: HgbA1c 4. Type 2 diabetes mellitus with hyperlipidemia (E11.69: Type 2 diabetes mellitus with other specified complication) Continue long-term insulin therapy with Basaglar and consider increasing Trulicity to aid in glucose control and weight management. Obtain A1c levels and review results for adjustments. Ordered: HgbA1c 5. Long-term insulin use (Z79.4: buttermaker continuous churn (current) use of insulin) Continue on Basaglar. Ordered: HgbA1c 6. Major depressive disorder, single episode, moderate (F32.1: Major depressive disorder, single episode, moderate) Monitor depression symptoms and encourage counseling. Discuss with the patient the potential benefits of therapy to improve mood and support weight management efforts. Ordered: HgbA1c 7. Smoker (F17.200: Nicotine dependence, unspecified, uncomplicated) Continue to encourage smoking cessation with follow-up on smoking habits and support strategies for cessation. Ordered: HgbA1c 8. BMI 30.0-30.9,adult (Z68.30: Body mass index [BMI] 30.0-30.9, adult) BMI education added. Ordered: HgbA1c 9. Exogenous obesity (E66.09: Other obesity due to excess calories) Discuss dietary adjustments including carbohydrate, protein, and sugar intakes. Consider advising on an exercise program, with follow-up dietary counseling recommended. Ordered: HgbA1c Hyperlipidemia, unspecified (E78.5: Hyperlipidemia, unspecified) Continue on statin. Orders: dulaglutide, 4.5 mg, SubCutaneous, qWeek, # 4 EA, Refills(s) 0, [id number], 160, cm, 04/06/24 8:31:00 EST, Height/Lengt (more content not included)... Normal [facility] Comment on above: Result Comment: Elec tronically Signed By: Dandre Burger MD\.br\Date and Time Signed: 04/06/24 08:48 EST [id number] 04-06-2024 HbA1c (Bld) [Mass fraction] 7.3 % High <=5.9 [facility] Comment on above: Performed By: #### [id number] #### [facility] Laboratory [address] [place] [address] Ambulatory Visit Summaryon 1 Ambulatory Visit Summary Ambulatory Visit Summary PATO CORRAL :1960 Visit Date:01/04/2024 Ambulatory Visit Instructions Your Diagnosis Type 2 diabetes mellitus with stage 3 chronic kidney disease Exogenous obesity Essential hypertension Obstructive sleep apnea (adult) (pediatric) Chronic kidney disease, stage 3 unspecified Encounter for immunization BMI 30.0-30.9,adult Former smoker Your Care Team Attending Physician - Dandre Burger MD Primary Care Physician - Dandre Burger MD This Is Your Medications List Misc Prescription (Misc DME Prescription) gabapentin (gabapentin 400 mg Cap) Contact prescribing physician if questions or concerns Misc Prescription (FreeStyle Kailey 2 Sensor) aspirin (aspirin 81 mg Oral EC Tab) atorvastatin (atorvastatin 80 mg Tab) buPROPion (Wellbutrin SR 150 mg Tab-ER) carvedilol (carvedilol 25 mg Tab) docusate (Colace 100 mg Cap) dulaglutide (Trulicity Pen 3 mg/0.5 mL subcutaneous solution) duloxetine (Cymbalta 60 mg oral delayed release capsule) insulin glargine (Basaglar KwikPen 100 units/mL subcutaneous solution) metformin-sitagliptin (Janumet 50 mg/1000 mg oral tablet) multivitamin (Multi Vitamins oral tablet) Procedures Performed Colonoscopy (05/04/2016), CABG x 4 - Coronary artery bypass grafts x 4, Carpal tunnel release, section, section, section, Cholecystectomy, Excision of lipoma of back, Vaginal total hysterectomy. Discharge Vitals Temperature (Oral) 36.8 ?C Heart Rate (Peripheral) 88 Respiratory Rate 16 Blood Pressure 116/78 Height 160 cm Height 63 in Weight 78.7 kg Weight 173.14 lb BMI 30.74 What to do next Scheduled Follow-Up Appointments Wednesday 7:15 AM EST With: Tao GTZ, Dandre Taylor Where: [address] [id number] 2024 8:00 AM EST With: Where: [address] [id number]- Medications What How Much When Instructions Unchanged gabapentin (gabapentin 400 mg Cap) 1 Capsules By Mouth 3 times a day Pickup at [facility] [id number] Unchanged Misc Prescription (Misc DME Prescription) See instructions Droplet 32G x 1/ 4 needles. Use to inject insulin sub q twice a day Pickup at [facility] [id number] Unchanged aspirin (aspirin 81 mg Oral EC [...] concerns Unchanged carvedilol (carvedilol 25 mg Tab) See instructions 1&1/ 2 orally twice a day Contact prescribing physician if questions or concerns Unchanged docusate (Colace 100 mg Cap) 1 Capsules By Mouth Every day as needed for for constipation Contact prescribing physician if questions or concerns Unchanged dulaglutide (Trulicity Pen 3 mg/ 0.5 mL subcutaneous solution) 3 Milligram Subcutaneous Every week Contact prescribing physician if questions or concerns Unchanged duloxetine (Cymbalta 60 mg oral delayed release capsule) 1 Capsules By Mouth Every day Contact prescribing physician if questions or concerns Unchanged insulin glargine (Basaglar KwikPen 100 units/ mL subcutaneous solution) See instructions inject 15 units subcutaneously twice a day Contact prescribing physician if questions or concerns Unchanged metformin-sitagliptin (Janumet 50 mg/ 1000 mg oral tablet) 1 Tablets By Mouth 2 times a day Contact prescribing physician if questions or concerns Unchanged Misc Prescription (FreeStyle Kailey 2 Sensor) See instructions Apply new sensor to upper back arm q 14days Contact prescribing physician if questions or concerns Unchanged multivitamin (Multi Vitamins oral tablet) 1 Tablets By Mouth Every day Contact prescribing physician if questions or concerns Pharmacy Information [facility] [id number]: [address], [place] [phone] Medications and Immunizations Administered Given Fluzone High-Dose PF Prefilled Syringe , 0.5 mL, IntraMuscular. For: Type 2 diabetes mellitus with stage 3 chronic kidney disease influenza virus vaccine, inactivated, IntraMuscular Allergies No Known Medication Allergies Problems Ongoing - Any problem that you are currently receiving treatment for. Back pain Benign hypertension with chronic kidney disease, stage III BMI 36.0-36.9,adult Chronic obstructive pulmonary disease Cigarette nicotine dependence Coronary artery disease Diabetic nephropathy Essential hypertension Family history of colon cancer CHRISTENSEN (headache) Hearing loss Hyperlipidemia Kidney disease, chronic, stage III (moderate, EGFR (more content not included)... Normal [facility] CHEMISTRYOrdered By: SYSTEM SYSTEM on 01-04-2024 Albumin DL <= 20 mg/L (U) [Mass/Vol] 19.0 mg/dL High 0.0 - 1.9 mg/dL Remisol Chem Albumin [Mass/Vol] 4.1 g/dL Normal 3.3 - 5.0 gm/dL R emisol Chem Albumin/Globulin [Mass ratio] 1.5 {ratio} Normal 1.1 - 2.2 Remisol Chem ALP [Catalytic activity/Vol] 71 [iU]/d Normal 21 - 98 Int._Unit/L Remisol Chem ALT No additional P-5'-P [Catalytic activity/Vol] 19 [iU]/d Normal 6 - 46 Int._Unit/L Remisol Chem Anion gap [Moles/Vol] 12 mmol/L Normal 6 - 16 mEq/L Remisol Chem AST [Catalytic activity/Vol] 17 [iU]/d Normal 5 - 43 Int._Unit/L Remisol Chem Bilirubin [Mass/Vol] 0.5 mg/dL Normal 0.0 - 1.1 mg/dL Remisol Chem Calcium [Mass/Vol] 9.9 mg/dL Normal 8.9 - 11.1 mg/dL Remisol Chem Chloride [Moles/Vol] 106 mmol/L Normal 101 - 111 mmol/L Remisol Chem Cholesterol [Mass/Vol] 117 mg/dL Low 120 - 200 mg/dL Remisol Chem Cholesterol in HDL [Mass/Vol] 36 mg/dL Invalid Interpretation Code Remisol Chem Comment on above: Result Comment: '>= 60 LOW RISK' '<= 40 HIGH RISK' Cholesterol in LDL [Mass/Vol] 47 mg/dL Normal <=129mg/dL Remisol Chem Cholesterol in VLDL [Mass/Vol] 53 mg/dL High 7 - 40 mg/dL Remisol Chem CO2 [Moles/Vol] 27 mmol/L Normal 21 - 31 mmol/L Remis ol Chem Creatinine [Mass/Vol] 1.3 mg/dL Normal 0.5 - 1.3 mg/dL Remisol Chem eGFR 45 mL/min/1.73 m2 Low >=59mL/min /1.73 m2 Remisol Chem Globulin (S) [Mass/Vol] 2.7 g/dL Normal 1.4 - 4.0 gm/dL Remisol Chem Glucose [Mass/Vol] 137 mg/dL Normal 55 - 199 mg/dL Re misol Chem Potassium [Moles/Vol] 4.6 mmol/L Normal 3.5 - 5.3 mmol/L Remisol Chem Protein [Mass/Vol] 6.8 g/dL Normal 6.0 - 7.8 gm/dL R emisol Chem Sodium [Moles/Vol] 140 mmol/L Normal 135 - 145 mmol/L Remisol Chem Triglyceride [Mass/Vol] 266 mg/dL High <=149mg/dL Remisol Chem Urea nitrogen [Mass/Vol] 21 mg/dL Normal 5 - 21 mg/dL Remisol Chem Urea nitrogen/Creatinine [Mass ratio] 16 mg/mg Normal 10 - 20 Remisol Chem CHEMISTRYOrdered By: Marcos Ramirez on 01-04-2024 HbA1c (Bld) [Mass fraction] 7.3 % High <=5.9% [facility] ChemAutoSS Family Medicine Office/Clini c Noteon 10-22-2024 Family Medicine Office/Clinic Note Family Medicine Office/Clinic Note [facility] Staff Pato is a 63 year old female presenting for 3 month follow up DM, weight Do you have any of the following symptoms? Foot Exam: UTD Eye Exam: UTD Last A1C: Hgb A1C %: 7.2 % High (04/05/23 07:29:00) Hgb A1c POC: 6.3 % (07/05/23 10:51:00) Statin: atorvastatin 80mg Last Weight: 182.6 Todays weight: 173. questions/concerns: She did't know she had Stage 3 kidney disease and asks will it get better or how to keep it from worsening, insurance told her she needs to have her kidneys checked needs her pen needles refilled. History of Present Illness The patient is a 63-year-old female presenting with multiple chronic conditions, primarily for management and follow-up. She has a history of Type 2 Diabetes Mellitus, currently complicated by Stage 3 Chronic Kidney Disease. The patient is on long-acting insulin, with adjustments recently made to her regimen from 30 units to 15 units twice daily. Concerns were raised about weight gain potentially associated with her insulin therapy. Her blood glucose levels will be assessed today for further therapy adjustments. Concurrently, she has a diagnosis of Essential Hypertension, which has been stable on current medication. The patient reports being a former smoker, with a history of nicotine dependence spanning approximately three to four decades. Her sleep apnea was addressed previously by a neurologist, who advised discontinuation of CPAP therapy based on updated assessments and chart reviews indicating no current necessity. Regarding her weight, the patient expresses dissatisfaction despite incidental obesity, which she attributes partly to dietary factors. Past interventions and advice on diet have been offered, with mixed adherence. Depression appears well-managed, with the patient reporting stable mood without current exacerbations. Review of Systems PHQ Score Initial Depression Screen Score: 2 SCORE Physical Exam Vitals & Measurements T: 36.8 ?C(Oral) HR: 88(Peripheral) RR: 16 BP: 116/78 SpO2: 96% HT: 63 in HT: 160 cm WT: 78.7 kg WT: 173.14 lb BMI: 30.74 General: alert, no acute distress ENMT: oral mucosa moist Cardiovascular: Regular rate and rhythm, normal peripheral perfusion Respiratory: Lungs clear to auscultation, respirations non labored Extremities: no deformity, no trauma Neurological: oriented x 4, level of consciousness appropriate for age, CN II-XII intact, motor strength equal & normal bilaterally, speech normal Abdomen: Soft, Non-tender, Non-distended, + Bowel sounds Assessment/Plan 1. Type 2 diabetes mellitus with stage 3 chronic kidney disease (E11.22: Type 2 diabetes mellitus with diabetic chronic kidney disease) Evaluate current insulin regimen with potential dosage reduction if glucose levels demonstrate stability or hypoglycemia risk. Well control in June. Ordered: influenza virus vaccine, inactivated, 0.5 mL, Susp-Inj, IntraMuscular, Once, Stop date 01/04/24 8:00:00 EDT, Routine, Start date 01/04/24 8:00:00 EDT Body Mass Index (BMI) documented 3008F CBC w/ Auto Diff Comprehensive Metabolic Panel Current tobacco non-user 1036F Depression Screening Negative 3352F HgbA1c Influenza immunization administered or previously received 4274F Lipid Panel Microalbumin Level Urine Most recent diastolic blood pressure <80 mm Hg 3078F Patient screen for fall risk: no falls in last year or 1 fall with no injury in last year 1101F Systolic BP <130 mm Hg (Most Recent) 3074F 2. Exogenous obesity (E66.09: Other obesity due to excess calories) Continued emphasis on dietary management and lifestyle interventions. Evaluate nutritional knowledge gaps and consider providing additional dietary education resources as needed. Ordered: influenza virus vaccine, inactivated, 0.5 mL, Susp-Inj, IntraMuscular, Once, Stop date 01/04/24 8:00:00 EDT, Routine, Start date 01/04/24 8:00:00 EDT Body Mass Index (BMI) documented 3008F CBC w/ Auto Diff Comprehensive Metabolic Panel Current tobacco non-user 1036F Depression Screening Negative 3352F HgbA1c Influenza immunization administered or previously received 4274F Lipid Panel Microalbumin Level Urine Most recent diastolic blood pressure <80 mm Hg 3078F Patient screen for fall risk: no falls in last year or 1 fall with no injury in last year 1101F Systolic BP <130 mm Hg (Most Recent) 3074F 3. Essential hypertension (I10: Essential (primary) hypertension) Maintain current antihypertensive regimen, as blood pressure readings remain within goal range. Monitor closely for any potential renal implications. Ordered: influenza virus vaccine, inactivated, 0.5 mL, Susp-Inj, IntraMuscular, Once, Stop date 01/04/24 8:00:00 EDT, Routine, Start date 01/04/24 8:00:00 EDT Body Mass Index (BMI) documented 3008F CBC w/ Auto Diff Comprehensive Metabolic Panel Current tobacco non-user 1036F Depression Screening Negative 3352F HgbA1c Influenza immunization administer (more content not included)... Normal [facility] Comment on above: Result Comment: Elec tronically Signed By: Tao GTZ, Dandre Solano.br\Date and Time Signed: 01/04/24 07:43 EDT HEMATOLOGYOrdered By: SYSTEM SYSTEM on 01-04-2024 Basophils/100 WBC (Bld) 0.5 % Normal 0.0 - 2.0 % Remisol Heme Basophils/Leukocyte s Auto (Bld) [Pure # fraction] 0.1 E9/L Normal 0.0 - 0.2 E9/L Remisol Heme Eosinophils (Bld) [#/Vol] 0.5 E9/L Normal 0.0 - 0.5 E9/L Remisol Heme Eosinophils/100 WBC (Bld) 4.2 % Normal 0.0 - 8.0 % Remisol Heme Erythrocyte distribution width (RBC) [Ratio] 17.0 % High 10.9 - 14.2 % Remisol Heme Hematocrit (Bld) [Volume fraction] 37.0 % Normal 34.0 - 46.0 % Remisol Heme Hemoglobin (Bld) [Mass/Vol] 12.2 g/dL Normal 12.0 - 16.0 gm/dL Remisol Heme Lymphocytes (Bld) [#/Vol] 2.7 E9/L Normal 1.0 - 4.0 E9/L Remisol Heme Lymphocytes/100 WBC (Bld) 23.7 % Normal 14.0 - 50.0 % Remisol Heme MCH (RBC) [Entitic mass] 26.1 pg Low 27.0 - 34.0 pg Remisol Heme MCHC (RBC) [Mass/Vol] 33.0 g/dL Normal 31.4 - 36.0 gm/dL Remisol Heme MCV (RBC) [Entitic vol] 79.3 fL Low 80.0 - 100.0 fL Remisol Heme Monocytes (Bld) [#/Vol] 0.8 E9/L Normal 0.2 - 1.0 E9/L Remisol Heme Monocytes/100 WBC (Bld) 7.1 % Normal 4.0 - 14.0 % Remisol Heme Neutrophils (Bld) [#/Vol] 7.4 E9/L Normal 2.0 - 7.5 E9/L Remisol Heme Neutrophils/100 WBC (Bld) 64.5 % Normal 36.0 - 75.0 % Remisol Heme Platelet mean volume (Bld) [Entitic vol] 7.5 fL Normal 6.4 - 10.8 fL Remisol Heme Platelets (Bld) [#/Vol] 285.0 E9/L Normal 150.0 - 500.0 E9/L Remisol Heme RBC (Bld) [#/Vol] 4.7 E12/L Normal 4.3 - 5.9 E12/L Re misol Heme WBC corrected for nucl RBC Auto (Bld) [#/Vol] 11.5 E9/L High 4.0 - 11.0 E9/L Remisol Heme [id number] 01-04-2024 HbA1c (Bld) [Mass fraction] 7.3 % High <=5.9 [facility] Comment on above: Performed By: #### 7 [id number] #### [facility] Laboratory [address] [place] [address] Family Medicine Office/Clini c Noteon 10-05-2023 Family Medicine Office/Clinic Note Family Medicine Office/Clinic Note HPI Staff Pato is a 63 year old female presenting for 3 month follow up DM JUVE increased trulicity to help with weight loss Down 7# Do you have any of the following symptoms? Foot Exam: UTD Eye Exam: Just done UTD Last A1C: Hgb A1C %: 7.2 % High (04/05/23 07:29:00) Hgb A1c POC: 6.3 % (07/05/23 10:51:00) Statin: atorvastatin 80mg questions/concerns: History of Present Illness Doing well. Loosing weight. Average BS is 117. Monitoring diet and exercise. Feels great. Review of Systems PHQ Score Initial Depression Screen Score: 0 SCORE Physical Exam Vitals & Measurements T: 36.7 ?C(Oral) HR: 76(Peripheral) RR: 16 BP: 120/78 SpO2: 95% HT: 63 in HT: 160 cm WT: 83 kg WT: 182.6 lb BMI: 32.42 General: alert, no acute distress ENMT: oral mucosa moist, Cardiovascular: regular rate and rhythm, normal peripheral perfusion Respiratory: Lungs CTA, respirations non labored Extremities: no deformity, no trauma Neurological: oriented x 4, LOC appropriate for age, CN II-XII intact, motor strength equal & normal bilaterally, speech normal Abdomen: Soft, Nontender, Non-distended, + BS Assessment/Plan 1. Type 2 diabetes mellitus with hyperlipidemia (E11.69: Type 2 diabetes mellitus with other specified complication) Doing well with diet and weight loss. - Continue trulicity 2. Hyperlipidemia (E78.5: Hyperlipidemia, unspecified) Statin 3. Benign hypertension with chronic kidney disease, stage III (I12.9: Hypertensive chronic kidney disease with stage 1 through stage 4 chronic kidney disease, or unspecified chronic kidney disease) At goal. 4. Kidney disease, chronic, stage III (moderate, EGFR 30-59 ml/min) (N18.30: Chronic kidney disease, stage 3 unspecified) Recheck in 3 months 5. Type 2 diabetes mellitus with stage 3 chronic kidney disease (E11.22: Type 2 diabetes mellitus with diabetic chronic kidney disease) Well controlled. - Recheck a1c in 3 months 6. Major depressive disorder, single episode, moderate (F32.1: Major depressive disorder, single episode, moderate) Now in remission. Orders: dulaglutide, 3 mg, SubCutaneous, qWeek, # 12 EA, Refills(s) 0, Pharmacy: [facility] [id number], 160, cm, 10/04/23 8:29:00 EDT, Height/Length Dosing, 83, kg, 10/04/23 8:29:00 EDT, Weight Dosing Follow-up No qualifying data available Problem List/Past Medical History Ongoing Back pain Benign hypertension with chronic kidney disease, stage III BMI 36.0-36.9,adult Chronic obstructive pulmonary disease Cigarette nicotine dependence Coronary artery disease Diabetic nephropathy Essential hypertension Family history of colon cancer CHRISTENSEN (headache) Hearing loss Hyperlipidemia Kidney disease, chronic, stage III (moderate, EGFR 30-59 ml/min) Long-term insulin use Major depressive disorder, single episode, moderate Microcytosis KELLY (obstructive sleep apnea) Polyneuropathy Post-nasal drip Retinopathy S/P CABG x 3 Screening for breast cancer Screening for malignant neoplasm of colon Type 2 diabetes mellitus with hyperlipidemia Type 2 diabetes mellitus with stage 3 chronic kidney disease Historical CKD (chronic kidney disease) Depression Procedure/Surgical History Colonoscopy (05/04/2016), CABG x 4 - Coronary artery bypass grafts x 4, Carpal tunnel release, section, section, section, Cholecystectomy, Excision of lipoma of back, Vaginal total hysterectomy. Medications aspirin 81 mg Oral EC Tab, 81 mg= 1 tab(s), Oral, Daily atorvastatin 80 mg Tab, 80 mg= 1 tab(s), Oral, Daily, 1 refills Basaglar KwikPen 100 units/mL subcutaneous solution, See Instructions carvedilol 25 mg Tab, See Instructions Colace 100 mg Cap, 100 mg= 1 cap(s), Oral, Daily, PRN Cymbalta 60 mg oral delayed release capsule, 60 mg= 1 cap(s), Oral, Daily, 1 refills FreeStyle Kailey 2 Sensor, See Instructions, 11 refills gabapentin 400 mg Cap, 400 mg= 1 cap(s), Oral, TID Janumet 50 mg/1000 mg oral tablet, 1 tab(s), Oral, BID, 1 refills Misc DME Prescription, See Instructions, 3 refills Multi Vitamins oral tablet, 1 tab(s), Oral, Daily Trulicity Pen 3 mg/0.5 mL subcutaneous solution, 3 mg, SubCutaneous, qWeek Wellbutrin SR 150 mg Tab-ER, 150 mg= 1 tab(s), Oral, Daily, 1 refills Allergies No Known Medication Allergies Social History Alcohol - Denies Alcohol Use, 07/31/2022 Household alcohol concerns: No., 05/05/2023 Substance Abuse - Denies Substance Abuse, 07/31/2022 Tobacco Former smoker, quit more than 30 days ago Tobacco Use:. Never Smokeless Tobacco Use:. Cigarettes, Started age 28.0 Years. Stopped age 62 Years. Household tobacco concerns: No. Yes, 10/04/2023 Family History Asthma: Father. Cardiac arrest: Father. Hypertension: Mother, Father and Brother. Primary malignant neoplasm of colon: Brother. Immunizations Vaccine Date Status Comments influenza virus vaccine, inactivated 12/28/2022 Given influenza virus (more content not included)... Normal [facility] Comment on above: Result Comment: Elec tronically Signed By: Tao GTZ, Dandre E.\.br\Date and Time Signed: 10/05/23 08:21 EDT Pre-Visit Planningon 024 Pre-Visit Planning Pre-Visit Planning From: Krupa Olivera To: Dandre Burger MD; Sent: 10/01/2023 14:28:53 EDT Subject: Pre-Visit Planning Due Date/Time: 10/01/2023 14:28:00 EDT Caller Name: PATO CORRAL; Caller Number: Hailey , Miquel Ma Dr. Burger. During a pre-visit planning chart review, I noted the following documentation in the medical record: Current Problem List: Depression, unspecified. Current Medication List: bupropion and duloxetine. 09/13/2023 Office Visit Note: PHQ-9 Score =16. Depression (F32.A: Depression, unspecified) - Elevated today. Likely due to her mom. Discussed options to help. Based on your medical judgment, can you [...] feel free to contact me at extension [phone]. Thank you! Krupa Olivera LPN From: Dandre Burger MD To: Krupa Olivera; Sent: 10/03/2023 12:30:22 EDT Subject: RE: Pre-Visit Planning Caller Name: PATO CORRAL; Caller Number: Hailey , Miquel Major depressive disorder, single episode, moderate. Please add Normal [address] [facility] Interdisciplinary Note - Soc ial Workeron 09-27-2023 Interdisciplinary Note - Road Patcher Interdisciplinary Note - Road Patcher Consult for positive depression screen received. SW made a tc to patient and left a message for her with SW's contact information should she wish to discuss concerns and/or needed resources. SW will remain available. Normal [facility] Ambulatory Visit Summaryon 0 09-13-2023 Ambulatory Visit Summary Ambulatory Visit Summary PATO CORRAL :1960 Visit Date:09/13/2023 Ambulatory Visit Instructions Your Diagnosis Depression BMI 33.0-33.9,adult Class 1 obesity due to excess calories in adult Former smoker Kidney disease, chronic, stage III (moderate, EGFR 30-59 ml/min) Type 2 diabetes mellitus with hyperlipidemia Essential hypertension Hyperlipidemia, unspecified Your Care Team Attending Physician - Dandre Burger MD. Primary Care Physician - Dandre Burger MD. This Is Your Medications List dulaglutide (Trulicity Pen 3 mg/0.5 mL subcutaneous solution) Contact prescribing physician if questions or concerns Misc Prescription (FreeStyle Kailey 2 Sensor) amlodipine (amLODIPine 5 mg Tab) aspirin (aspirin 81 mg Oral EC Tab) atorvastatin (atorvastatin 80 mg Tab) buPROPion (Wellbutrin SR 150 mg Tab-ER) carvedilol (carvedilol 25 mg Tab) clobetasol topical (Clobetasol (Eqv-Temovate E) 0.05% topical cream) docusate (Colace 100 mg Cap) duloxetine (Cymbalta 60 mg oral delayed release capsule) gabapentin (gabapentin 400 mg Cap) insulin glargine (Basaglar KwikPen 100 units/mL subcutaneous solution) metformin-sitagliptin (Janumet 50 mg/1000 mg oral tablet) multivitamin (Multi Vitamins oral tablet) Procedures Performed Colonoscopy (05/04/2016), CABG x 4 - Coronary artery bypass grafts x 4, Carpal tunnel release, section, section, section, Cholecystectomy, Excision of lipoma of back, Vaginal total hysterectomy. Discharge Vitals Temperature (Oral) 36.4 ?C Heart Rate (Peripheral) 86 Respiratory Rate 16 Blood Pressure 122/70 Height 160 cm Height 63 in Weight 86.0 kg Weight 189.2 lb BMI 33.59 What to do next Scheduled Follow-Up Appointments Wednesday 8:30 AM EDT With: Tao GTZ, Dandre Taylor Where: [facility] [place] Normal [address] [id number] \.br\ Medications\.br\ What How Much When Why Instructions\.br \ Changed dulaglutide (Trulicity Pen 3 mg/ 0.5 mL subcutaneous solution) 3 Milligram Subcutaneous Every week Pickup at [facility] [id number]\.br\ Unchanged amlodipine (amLODIPine 5 mg Tab) 1 Tablets By Mouth Every day Contact prescribing physician if questions or concerns \.br\ Unchanged aspirin (aspirin 81 mg Oral EC Tab) 1 Tablets By Mouth Every day Contact prescribing physician if questions or concerns \.br\ Unchanged atorvastatin (atorvastatin 80 mg Tab) 1 Tablets By Mouth Every day Contact prescribing physician if questions or concerns \.br\ Unchanged buPROPion (Wellbutrin SR 150 mg Tab-ER) 1 Tablets By Mouth Every day Contact prescribing physician if questions or concerns \.br\ Unchanged carvedilol (carvedilol 25 mg Tab) See instructions 1&1/ 2 orally twice a day Contact prescribing physician if questions or concerns \.br\ Unchanged clobetasol topical (Clobetasol (Eqv-Temovate E) 0.05% topical cream) 1 Application Topical 2 times a day Papular rash Contact prescribing physician if questions or concerns \.br\ Unchanged docusate (Colace 100 mg Cap) 1 Capsules By Mouth Every day as needed for for constipation Contact prescribing physician if questions or concerns \.br\ Unchanged duloxetine (Cymbalta 60 mg oral delayed release capsule) 1 Capsules By Mouth Every day Contact prescribing physician if questions or concerns \.br\ Unchanged gabapentin (gabapentin 400 mg Cap) 1 Capsules By Mouth 3 times a day Contact prescribing physician if questions or concerns \.br\ Unchanged insulin glargine (Basaglar KwikPen 100 units/ mL subcutaneous solution) See instructions inject 30 units subcutaneously twice a day Contact prescribing physician if questions or concerns \.br\ Unchanged metformin-sitagl iptin (Janumet 50 mg/ 1000 mg oral tablet) 1 Tablets By Mouth 2 times a day Contact prescribing physician if questions or concerns \.br\ Unchanged Misc Prescription (FreeStyle Kailey 2 Sensor) See instructions Apply new sensor to upper back arm q 14days Contact prescribing physician if questions or concerns \.br\ Unchanged multivitamin (Multi Vitamins oral tablet) 1 Tablets By Mouth Every day Contact prescribing physician if questions or concerns \.br\ Pharmacy Information\.br\ [facility] [id number]: [address], [place] [id number] [phone]\.br\ Allergies\.br\ No Known Medication Allergies\.br\ Problems\.br\ Ongoing - Any problem that you are currently receiving treatment for.\.br\ Back pain\.br\ BMI 36.0-36.9,adult\ .br\ Chronic obstructive pulmonary disease\.br\ Cigarette nicotine dependence\.br\ Coronary artery disease\.br\ Depression\.br\ Diabetic nephropathy\.br\ Essential hypertension\.br \ Family history of colon cancer\.br\ CHRISTENSEN (headache)\.br\ Hearing loss\.br\ Hyperlipidemia\. br\ Kidney disease, chronic, stage III (moderate, EGFR 30-59 ml/min)\.br\ Long-term insulin use\.br\ Microcytosis\.br \ KELLY (obstructive sleep apnea)\.br\ Polyneuropathy\. br\ Post-nasal drip\.br\ Retinopathy\.br\ S/P CABG x 3\.br\ Screening for breast cancer\.br\ Screening for malignant neoplasm of colon\.br\ Type 2 diabetes mellitus with hyperlipidemia\. br\ Historical - Any problem that you are no longer receiving treatment for.\.br\ CKD (chronic kidney disease)\.br\ Patient Survey\.br\ You may receive a survey via text or e-mail asking about your office visit. Please share your experience with us by completing your survey. We appreciate your feedback and thank you for choosing us for your care.\.br\ \.br\ [facility] Family Medicine Office/Clini c Noteon 09-13-2023 Family Medicine Office/Clinic Note Family Medicine Office/Clinic Note HPI Staff Pato is a 63 year old female presenting to discuss weight loss Would like to be rxed something to help with weight loss questions/concerns: needs the pen needles refilled for her insulin phq:4 phq9: 14 History of Present Illness - Pt here to discuss weight loss. - BS have been a little low - Pt is stating she is barely eating. - No other issues. Review of Systems PHQ Score Initial Depression Screen Score: 4 SCORE Detailed Depression Screen Score: 12 Total Depression Screen Score: 16 Physical Exam Vitals & Measurements T: 36.4 ?C(Oral) HR: 86(Peripheral) RR: 16 BP: 122/70 SpO2: 98% HT: 63 in HT: 160 cm WT: 86.0 kg WT: 189.2 lb BMI: 33.59 General: alert, no acute distress ENMT: oral mucosa moist, Cardiovascular: normal peripheral perfusion Respiratory: respirations non labored Extremities: no deformity, no trauma Neurological: oriented x 4, LOC appropriate for age, CN II-XII intact, motor strength equal & normal bilaterally, speech normal Assessment/Plan 1. Depression (F32.A: Depression, unspecified) - Elevated today - Likely due to her mom - Discussed options to help 2. Essential hypertension (I10: Essential (primary) hypertension) - At goal today. - No issues at this time. 3. Type 2 diabetes mellitus with hyperlipidemia (E11.69: Type 2 diabetes mellitus with other specified complication) - Will stop glimiperide - Watch BS - Increase Trulicity to help with weight loss. - May need to decrease the Long acting insulin 4. Kidney disease, chronic, stage III (moderate, EGFR 30-59 ml/min) (N18.30: Chronic kidney disease, stage 3 unspecified) - Stable 5. BMI 33.0-33.9,adult (Z68.33: Body mass index [BMI] 33.0-33.9, adult) - BMI education discussed Ordered: Body Mass Index (BMI) documented 3008F Current tobacco non-user 1036F Depression Screening Negative 3352F Influenza immunization administered or previously received 4274F Most recent diastolic blood pressure <80 mm Hg 3078F Patient screen for fall risk: no falls in last year or 1 fall with no injury in last year 1101F Systolic BP <130 mm Hg (Most Recent) 3074F 6. Class 1 obesity due to excess calories in adult (E66.09: Other obesity due to excess calories) - Diet and exercise advised Ordered: Body Mass Index (BMI) documented 3008F Current tobacco non-user 1036F Depression Screening Negative 3352F Influenza immunization administered or previously received 4274F Most recent diastolic blood pressure <80 mm Hg 3078F Patient screen for fall risk: no falls in last year or 1 fall with no injury in last year 1101F Systolic BP <130 mm Hg (Most Recent) 3074F 7. Former smoker (Z87.891: Personal history of nicotine dependence) - Please continue to not smoke Ordered: Body Mass Index (BMI) documented 3008F Current tobacco non-user 1036F Depression Screening Negative 3352F Influenza immunization administered or previously received 4274F Most recent diastolic blood pressure <80 mm Hg 3078F Patient screen for fall risk: no falls in last year or 1 fall with no injury in last year 1101F Systolic BP <130 mm Hg (Most Recent) 3074F Hyperlipidemia, unspecified (E78.5: Hyperlipidemia, unspecified) Orders: dulaglutide, 3 mg, SubCutaneous, qWeek, # 12 EA, Refills(s) 1, [facility] [id number], 160, cm, 09/13/23 7:24:00 EDT, Height/Length Dosing, 86, kg, 09/13/23 7:24:00 EDT, Weight Dosing Follow-up No qualifying data available Patient Education BMI for Adults Problem List/Past Medical History Ongoing Back pain BMI 36.0-36.9,adult Chronic obstructive pulmonary disease Cigarette nicotine dependence Coronary artery disease Depression Diabetic nephropathy Essential hypertension Family history of colon cancer CHRISTENSEN (headache) Hearing loss Hyperlipidemia Kidney disease, chronic, stage III (moderate, EGFR 30-59 ml/min) Long-term insulin use Microcytosis KELLY (obstructive sleep apnea) Polyneuropathy Post-nasal drip Retinopathy S/P CABG x 3 Screening for breast cancer Screening for malignant neoplasm of colon Type 2 diabetes mellitus with hyperlipidemia Historical CKD (chronic kidney disease) Procedure/Surgical History Colonoscopy (05/04/2016), CABG x 4 - Coronary artery bypass grafts x 4, Carpal tunnel release, section, section, section, Cholecystectomy, Excision of lipoma of back, Vaginal total hysterectomy. Medications amLODIPine 5 mg Tab, 5 mg= 1 tab(s), Oral, Daily aspirin 81 mg Oral EC Tab, 81 mg= 1 tab(s), Oral, Daily atorvastatin 80 mg Tab, 80 mg= 1 tab(s), Oral, Daily, 1 refills Basaglar KwikPen 100 units/mL subcutaneous solution, See Instructions carvedilol 25 mg Tab, See Instructions Clobetasol (Eqv-Temovate E) 0.05% topical cream, 1 mayuri, Topical, BID, 1 refills Colace 100 mg Cap, 100 mg= 1 cap(s), Oral, Daily, PRN Cymbalta 60 mg oral delayed release capsule, 60 mg= (more content not included)... Normal [facility] Comment on above: Result Comment: Elec tronically Signed By: Dandre Burger MD\.br\Date and Time Signed: 09/13/23 07:54 EDT Ambulatory Visit Summaryon 0 08-27-2023 Ambulatory Visit Summary PATO [place] Love :1960 Visit Date:08/27/2023 Ambulatory Visit Instructions Your Diagnosis Papular rash BMI 33.0-33.9,adult Former smoker Your Care Team Attending Physician - JANET HERNÁNDEZ CNP Primary Care Physician - Dandre Burger MD This Is Your Medications List [facility] Prescription (FreeStyle Kailey 2 Sensor) amlodipine (amLODIPine 5 mg Tab) aspirin (aspirin 81 mg Oral EC Tab) atorvastatin (atorvastatin 80 mg Tab) buPROPion (Wellbutrin SR 150 mg Tab-ER) carvedilol (carvedilol 25 mg Tab) clobetasol topical (Clobetasol (Eqv-Temovate E) 0.05% topical cream) docusate (Colace 100 mg Cap) dulaglutide (Trulicity Pen 1.5 mg/0.5 mL subcutaneous solution) duloxetine (Cymbalta 60 mg oral delayed release capsule) gabapentin (gabapentin 400 mg Cap) glimepiride (Amaryl 4 mg Tab) insulin glargine (Basaglar KwikPen 100 units/mL subcutaneous solution) isosorbide mononitrate (isosorbide mononitrate 30 mg ER Tab) metformin-sitagliptin (Marumet 50 mg/1000 mg oral tablet) multivitamin (Multi Vitamins oral tablet) Procedures Performed Colonoscopy (05/04/2016), CABG x 4 - Coronary artery bypass grafts x 4, Carpal tunnel release, section, section, section, Cholecystectomy, Excision of lipoma of back, Vaginal total hysterectomy. Discharge Vitals Heart Rate (Peripheral) 80 Respiratory Rate 18 Blood Pressure 130/78 Height 160.0 cm Height 63 in Weight 85.3 kg Weight 187.66 lb BMI 33.32 What to do next Scheduled Follow-Up Appointments Wednesday 8:30 AM EDT With: Tao GTZ, Dandre Taylor Where: [address] \.br\ Medications\.br\ What How Much When Why Instructions\.br \ New clobetasol topical (Clobetasol (Eqv-Temovate E) 0.05% topical cream) 1 Application Topical 2 times a day Papular rash Refills: 1 Pickup at [facility] #[id number]\.br\ Unchanged amlodipine (amLODIPine 5 mg Tab) 1 Tablets By Mouth Every day\.br\ Unchanged aspirin (aspirin 81 mg Oral EC Tab) 1 Tablets By Mouth Every day\.br\ Unchanged atorvastatin (atorvastatin 80 mg Tab) 1 Tablets By Mouth Every day\.br\ Unchanged buPROPion (Wellbutrin SR 150 mg Tab-ER) 1 Tablets By Mouth Every day\.br\ Unchanged carvedilol (carvedilol 25 mg Tab) 1.5 Tablets By Mouth 2 times a day\.br\ Unchanged docusate (Colace 100 mg Cap) 1 Capsules By Mouth Every day as needed for for constipation\.br \ Unchanged dulaglutide (Trulicity Pen 1.5 mg/ 0.5 mL subcutaneous solution) 1.5 Milligram Subcutaneous Every week\.br\ Unchanged duloxetine (Cymbalta 60 mg oral delayed release capsule) 1 Capsules By Mouth Every day\.br\ Unchanged gabapentin (gabapentin 400 mg Cap) 1 Capsules By Mouth 3 times a day\.br\ Unchanged glimepiride (Amaryl 4 mg Tab) 1 Tablets By Mouth 2 times a day\.br\ Unchanged insulin glargine (Basaglar KwikPen 100 units/ mL subcutaneous solution) See instructions inject 30 units subcutaneously twice a day \.br\ Unchanged isosorbide mononitrate (isosorbide mononitrate 30 mg ER Tab) 1 Tablets By Mouth Every day\.br\ Unchanged metformin-sitagl iptin (Janumet 50 mg/ 1000 mg oral tablet) 1 Tablets By Mouth 2 times a day\.br\ Unchanged Misc Prescription (FreeStyle Kailey 2 Sensor) See instructions Apply new sensor to upper back arm q 14days \.br\ Unchanged multivitamin (Multi Vitamins oral tablet) 1 Tablets By Mouth Every day\.br\ Pharmacy Information\.br\ [facility] #[id number]: [address], [place] [id number] [phone]\.br\ Allergies\.br\ No Known Medication Allergies\.br\ Problems\.br\ Ongoing - Any problem that you are currently receiving treatment for.\.br\ Back pain\.br\ BMI 36.0-36.9,adult\ .br\ Chronic obstructive pulmonary disease\.br\ Cigarette nicotine dependence\.br\ Coronary artery disease\.br\ Depression\.br\ Diabetic nephropathy\.br\ Essential hypertension\.br \ Family history of colon cancer\.br\ CHRISTENSEN (headache)\.br\ Hearing loss\.br\ Hyperlipidemia\. br\ Kidney disease, chronic, stage III (moderate, EGFR 30-59 ml/min)\.br\ Long-term insulin use\.br\ Microcytosis\.br \ KELLY (obstructive sleep apnea)\.br\ Polyneuropathy\. br\ Post-nasal drip\.br\ Retinopathy\.br\ S/P CABG x 3\.br\ Screening for breast cancer\.br\ Screening for malignant neoplasm of colon\.br\ Type 2 diabetes mellitus with hyperlipidemia\. br\ Historical - Any problem that you are no longer receiving treatment for.\.br\ CKD (chronic kidney disease)\.br\ Patient Survey\.br\ You may receive a survey via text or e-mail asking about your office visit. Please share your experience with us by completing your survey. We appreciate your feedback and thank you for choosing us for your care.\.br\ \.br\ [facility] Family Medicine Office/Clini c Noteon 08-27-2023 Family Medicine Office/Clinic Note HPI Staff Pato is a 63 year old female presenting for acute visit Onset: Intermittent 3 months Location: scattered around neck Description: small Rash symptoms: painful, pressure OTC: Neosporin/ bag balm Pt states has tried squeezing them, tried to rebeka it open nothing has come out. Pt would like to see if she could take wegovy to help with weight loss. History of Present Illness 63 year old patient of Dr. Burger presents today with her daughter for an acute visit. Patient reports she has painful spots on her neck off and on for 3 months. She is particularly concerned about one spot at the base of her neck. She reports she has tried to rebeka the papule and she has squeezed the area but has not had any drainage or pus from the area. She denies a fever and reports the areas are sometimes tender. She has tried neosporin & bag balm with no improvement. Review of Systems PHQ Score Initial Depression Screen Score: 0 SCORE Constitutional: no fever, no chills, no sweats, no weakness Skin: no Jaundice, no rash, no lesions, nopetechiae ENMT: no ear pain, no sore throat, no congestion, no hoarseness Respiratory: no shortness of breath, no cough, no orthopnea, no wheezing Cardiovascular: no chest pain, no palpitations, no edema Musculoskeletal: no back pain, no trauma Neurologic: no headache, no dizziness, no numbness, no weakness Psychiatric: no sleeping problems, no irritability, no mood swings/depression. Additional ROS info: Except as noted in the above Review of Systems and in the History of Present Illness all other systems have been reviewed and are negative or noncontributory. Physical Exam Vitals & Measurements HR: 80(Peripheral) RR: 18 BP: 130/78 HT: 63 in HT: 160.0 cm WT: 85.3 kg WT: 187.66 lb BMI: 33.32 General: alert, no acute distress Skin: Posterior neck below hairline- small,open papule- no redness or drainage, mild tenderness with palpation, small papule on right neck- no erythema or drainage, non-tender. Cardiovascular: regular rate and rhythm, normal peripheral perfusion Respiratory: Lungs CTA, respirations non labored Extremities: no deformity, no trauma Neurological: oriented x 4, LOC appropriate for age speech normal Assessment/Plan 1. Papular rash (R21: Rash and other nonspecific skin eruption) Apply clobetasol topical to the papule at the base of her posterior neck, and the papule on the right side of her neck f/u with pcp if no improvement in 3-5 days Ordered: clobetasol topical, 1 mayuri, Topical, BID, 15 gm, Refill(s) 1, [facility] #[id number], 160, cm, 08/27/23 9:43:00 EDT, Height/Length Dosing, 85.3, kg, 08/27/23 9:43:00 EDT, Weight Dosing 2. BMI 33.0-33.9,adult (Z68.33: Body mass index [BMI] 33.0-33.9, adult) The standard range for ages 18 and older is >=18.5 and < 25 kg/m2. Your BMI today was above this range, this falls in the overweight to obese category and there are medical benefits to weight loss. We can offer counselling, referral, and/or medical support in addressing this problem. Your BMI and weight management will be followed at subsequent visits. Encouraged patient to discuss Wegovy with pcp at her appointment in September 2023 3. Former smoker (Z87.891: Personal history of nicotine dependence) Encouraged to continue as a non-smoker Follow-up No qualifying data available Problem List/Past Medical History Ongoing Back pain BMI 36.0-36.9,adult Chronic obstructive pulmonary disease Cigarette nicotine dependence Coronary artery disease Depression Diabetic nephropathy Essential hypertension Family history of colon cancer CHRISTENSEN (headache) Hearing loss Hyperlipidemia Kidney disease, chronic, stage III (moderate, EGFR 30-59 ml/min) Long-term insulin use Microcytosis KELLY (obstructive sleep apnea) Polyneuropathy Post-nasal drip Retinopathy S/P CABG x 3 Screening for breast cancer Screening for malignant neoplasm of colon Type 2 diabetes mellitus with hyperlipidemia Historical CKD (chronic kidney disease) Procedure/Surgical History Colonoscopy (05/04/2016), CABG x 4 [...] mg Tab, 80 mg= 1 tab(s), Oral, Daily, 1 refills Basaglar KwikPen 100 units/mL subcutaneous solution, See Instructions carvedilol 25 mg Tab, 37.5 mg= 1.5 tab(s), Oral, BID Clobetasol (Eqv-Temovate E) 0.05% topical cream, 1 mayuri, Topical, BID, 1 refills Colace 100 mg Cap, 100 mg= 1 cap(s), Oral, Daily, PRN Cymbalta 60 mg oral delayed release capsule, 60 mg= 1 cap(s), Oral, Daily, 1 refills FreeStyle Kailey 2 Sensor, See Instructions, 11 refills gabapentin 400 mg Cap, 400 mg= 1 cap(s), Oral, TID isosorbide mon (more content not included)... Normal [facility] Comment on above: Result Comment: Elec tronically Signed By: JANET HERNÁNDEZ CNP\.br\Date and Time Signed: 08/27/23 15:10 EDT Pre-Visit Planningon 024 Pre-Visit Planning - From: Krupa Olivera To: JANET HERNÁNDEZ CNP; Sent: 08/26/2023 12:59:06 EDT Subject: Pre-Visit Planning Due Date/Time: 08/26/2023 12:59:00 EDT Caller Name: PATO [place]; Caller Number: , Александр Man. During a pre-visit planning chart review, I noted the following documentation in the medical record: Current Problem List: Depression, unspecified. Current Medication List: bupropion and duloxetine. PHQ-9 Score: =2 on 05/05/2023 and =15 on 12/14/2022. 07/05/2023 Office Visit Note: Depression (F32.A: Depression, unspecified) - Well controlled today. Continue as before. Based on your medical judgment, can you [...] feel free to contact me at extension [phone]. Thank you! Krupa Olivera LPN From: JANET HERNÁNDEZ CNP To: Krupa Olivera; Sent: 08/27/2023 10:25:44 EDT Subject: RE: Pre-Visit Planning Caller Name: PATO [place]; Caller Number: H , M Please have the patient's pcp address at her next appointment. I saw her for an acute visit only Normal [address] [place] [address] Pre-Visit Planning - From: Krupa Olivera To: JANET HERNÁNDEZ CNP; Sent: 08/26/2023 13:07:11 EDT Subject: Pre-Visit Planning Due Date/Time: 08/26/2023 13:07:00 EDT Caller Name: PATO [place]; Caller Number: H , M Александр Man. During a pre-visit planning chart review, I noted the following documentation in the medical record: Current Problem List: Chronic kidney disease, unspecified. 12/14/2022 Office Visit Note: CKD (chronic kidney disease) (N18.9: Chronic kidney disease, unspecified) At this time I am unsure which type of his CKD the patient has. Labs have been ordered. We will follow-up in 2 weeks. Glomerular filtration rate (GFR): =42 on 12/14/2022. Based on your medical judgment, can you please clarify which, if any, of the following conditions are present? I can update the problem list with your specified response if you would like. -Chronic Kidney Disease Stage 3b (GFR 30-44) -Other (please specify): -Unable to determine In responding to this request, please exercise your independent professional judgment. The fact that a question is asked does not imply that any particular answer is desired or expected. If you have any questions, please feel free to contact me at extension [phone]. Thank you! Krupa Olivera LPN From: JANET HERNÁNDEZ CNP To: Krupa Olivera; Sent: 08/27/2023 10:25:31 EDT Subject: RE: Pre-Visit Planning Caller Name: PATO CORRAL; Caller Number: , Miquel Please have the patient's pcp address at her next appointment. I saw her for an acute visit only Normal [address] [place] [address] Ambulatory Visit Summaryon 0 07-05-2023 Ambulatory Visit Summary PATO CORRAL :1960 Visit Date:07/05/2023 Ambulatory Visit Instructions Your Diagnosis Type 2 diabetes mellitus with hyperlipidemia Essential hypertension Hyperlipidemia S/P CABG x 3 Long-term insulin use Depression Chronic obstructive pulmonary disease Post-nasal drip Screening for breast cancer Smoker Former smoker BMI 34.0-34.9,adult Class 1 obesity due to excess calories in adult Tests Performed MA Mamm Screen w/CAD if perf and 3D [place] -- Results Pending -- Please visit your patient portal for your results or contact your primary care physician. Your Care Team Attending Physician - Dandre Burger MD Primary Care Physician - Dandre Burger MD This Is Your Medications List buPROPion (Wellbutrin SR 150 mg Tab-ER) duloxetine (Cymbalta 60 mg oral delayed release capsule) gabapentin (gabapentin 400 mg Cap) metformin-sitagliptin (Janumet 50 mg/1000 mg oral tablet) Contact prescribing physician if questions or concerns Misc Prescription (FreeStyle Kailey 2 Sensor) amlodipine (amLODIPine 5 mg Tab) aspirin (aspirin 81 mg Oral EC Tab) atorvastatin (atorvastatin 80 mg Tab) carvedilol (carvedilol 25 mg Tab) docusate (Colace 100 mg Cap) dulaglutide (Trulicity Pen 1.5 mg/0.5 mL subcutaneous solution) glimepiride (Amaryl 4 mg Tab) insulin glargine (Basaglar KwikPen 100 units/mL subcutaneous solution) isosorbide mononitrate (isosorbide mononitrate 30 mg ER Tab) multivitamin (Multi Vitamins oral tablet) [Image Removed: STOP]Stop taking these medications insulin glargine (Basaglar KwikPen 100 units/mL subcutaneous solution) Procedures Performed Colonoscopy (05/04/2016), CABG x 4 - Coronary artery bypass grafts x 4, Carpal tunnel release, section, section, section, Cholecystectomy, Excision of lipoma of back, Vaginal total hysterectomy. Discharge Vitals Temperature (Temporal Artery) 36.2 ?C Heart Rate (Peripheral) 92 Respiratory Rate 18 Blood Pressure 138/80 Height 160 cm Height 63 in Weight 87.5 kg Weight 192.5 lb BMI 34.18 What to do next Scheduled Follow-Up Appointments Wednesday 8:00 AM EDT With: Tao GTZ, Dandre Taylor Where: [facility] [place] Normal [address] [place] [phone] \.br\ Medications\.br\ What How Much When Instructions\.br \ Changed buPROPion (Wellbutrin SR 150 mg Tab-ER) 1 Tablets By Mouth Every day Pickup at [facility] #[id number]\.br\ Changed duloxetine (Cymbalta 60 mg oral delayed release capsule) 1 Capsules By Mouth Every day Pickup at [facility] #[id number]\.br\ Unchanged gabapentin (gabapentin 400 mg Cap) 1 Capsules By Mouth 3 times a day Pickup at [facility] #[id number]\.br\ Unchanged metformin-sitagl iptin (Janumet 50 mg/ 1000 mg oral tablet) 1 Tablets By Mouth 2 times a day Pickup at [facility] #[id number]\.br\ Unchanged amlodipine (amLODIPine 5 mg Tab) 1 Tablets By Mouth Every day Contact prescribing physician if questions or concerns \.br\ Unchanged aspirin (aspirin 81 mg Oral EC Tab) 1 Tablets By Mouth Every day Contact prescribing physician if questions or concerns \.br\ Unchanged atorvastatin (atorvastatin 80 mg Tab) 1 Tablets By Mouth Every day Contact prescribing physician if questions or concerns \.br\ Unchanged carvedilol (carvedilol 25 mg Tab) 1.5 Tablets By Mouth 2 times a day Contact prescribing physician if questions or concerns \.br\ Unchanged docusate (Colace 100 mg Cap) 1 Capsules By Mouth Every day as needed for for constipation Contact prescribing physician if questions or concerns \.br\ Unchanged dulaglutide (Trulicity Pen 1.5 mg/ 0.5 mL subcutaneous solution) 1.5 Milligram Subcutaneous Every week Contact prescribing physician if questions or concerns \.br\ Unchanged glimepiride (Amaryl 4 mg Tab) 1 Tablets By Mouth 2 times a day Contact prescribing physician if questions or concerns \.br\ Unchanged insulin glargine (Basaglar KwikPen 100 units/ mL subcutaneous solution) See instructions inject 30 units subcutaneously twice a day Contact prescribing physician if questions or concerns \.br\ Unchanged isosorbide mononitrate (isosorbide mononitrate 30 mg ER Tab) 1 Tablets By Mouth Every day Contact prescribing physician if questions or concerns \.br\ Unchanged Misc Prescription (FreeStyle Kailey 2 Sensor) See instructions Apply new sensor to upper back arm q 14days Contact prescribing physician if questions or concerns \.br\ Unchanged multivitamin (Multi Vitamins oral tablet) 1 Tablets By Mouth Every day Contact prescribing physician if questions or concerns \.br\ Pharmacy Information\.br\ [facility] #[id number]: [address], [place] [id number] [phone]\.br\ \.br\ What How Much When Comments\.br\ Stop Taking insulin glargine (Basaglar KwikPen 100 units/ mL subcutaneous solution) See instructions inject 30 units subcutaneously twice a day \.br\ Allergies\.br\ No Known Medication Allergies\.br\ Problems\.br\ Ongoing [...] \ KELLY (obstructive sleep apnea)\.br\ Polyneuropathy\. br\ Post-nasal drip\.br\ Retinopathy\.br\ S/P CABG x 3\.br\ Screening for breast cancer\.br\ Screening for malignant neoplasm of colon\.br\ Smoker\.br\ Type 2 diabetes mellitus with hyperlipidemia\. br\ Patient Survey\.br\ You may receive a survey via text or e-mail asking about your office visit. Please share your experience with us by completing your survey. We appreciate your feedback and thank you for choosing us for your care.\.br\ \.br\ [facility] Family Medicine Office/Clini c Noteon 07-05-2023 Family Medicine Office/Clinic Note HPI Staff Pato is a 62 year old female presenting for 3 month follow up DM Do you have any of the following symptoms? Foot Exam: none Eye Exam: over due needs to find an eye dr Last A1C: Hgb A1C %: 7.2 % High (04/05/23 07:29:00) Statin: atorvastatin 80mg questions/concerns: woke up with a very sore throat, couldn't see if red or any white spots, says her tongue is in the way and feels her tongue is swollen History of Present Illness - Here for follow up. - NO issues. - LDCT stable. - See staff HPI. Review of Systems PHQ Score Initial Depression Screen Score: 2 SCORE Physical Exam Vitals & Measurements T: 36.2 ?C(Temporal Artery) HR: 92(Peripheral) RR: 18 BP: 138/80 SpO2: 98% HT: 63 in HT: 160 cm WT: 87.5 kg WT: 192.5 lb BMI: 34.18 General: alert, no acute distress ENMT: oral mucosa moist, Cardiovascular: regular rate and rhythm, normal peripheral perfusion Respiratory: Lungs CTA, respirations non labored Extremities: no deformity, no trauma Neurological: oriented x 4, LOC appropriate for age, CN II-XII intact, motor strength equal & normal bilaterally, speech normal Abdomen: Soft, Nontender, Non-distended, + BS Diabetic Foot Exam Decreased Monofilament Sensation Foot: Left - Normal, Right - Normal Bunions/Foot Deformity: Left - Abnormal, Right - Abnormal Abnormal Pulse Foot: Left - Abnormal, Right - Abnormal Skin Lesions Foot: Left - Normal, Right - Normal Foot Exam Result: Abnormal foot exam Foot Exam Findings: Callouses notedPulses were not felt. Assessment/Plan 1. Type 2 diabetes mellitus with hyperlipidemia (E11.69: Type 2 diabetes mellitus with other specified complication) - Will do an A1c today. - Adjust meds as needed Ordered: Body Mass Index (BMI) documented 3008F Current tobacco non-user 1036F Depression Screening Negative 3352F Influenza immunization administered or previously received 4274F Most recent diastolic blood pressure 80-89 mm Hg 3079F Patient screen for fall risk: no falls in last year or 1 fall with no injury in last year 1101F Systolic BP 130-139 mm Hg (Most Recent) 3075F 2. Essential hypertension (I10: Essential (primary) hypertension) - At goal today. - No issues. - Takes meds regularly. Ordered: Body Mass Index (BMI) documented 3008F Current tobacco non-user 1036F Depression Screening Negative 3352F Influenza immunization administered or previously received 4274F Most recent diastolic blood pressure 80-89 mm Hg 3079F Patient screen for fall risk: no falls in last year or 1 fall with no injury in last year 1101F Systolic BP 130-139 mm Hg (Most Recent) 3075F 3. Hyperlipidemia (E78.5: Hyperlipidemia, unspecified) - Statin as before Ordered: Body Mass Index (BMI) documented 3008F Current tobacco non-user 1036F Depression Screening Negative 3352F Influenza immunization administered or previously received 4274F Most recent diastolic blood pressure 80-89 mm Hg 3079F Patient screen for fall risk: no falls in last year or 1 fall with no injury in last year 1101F Systolic BP 130-139 mm Hg (Most Recent) 3075F 4. S/P CABG x 3 (Z95.1: Presence of aortocoronary bypass graft) - No CP today. - Seeing cardiology Ordered: Body Mass Index (BMI) documented 3008F Current tobacco non-user 1036F Depression Screening Negative 3352F Influenza immunization administered or previously received 4274F Most recent diastolic blood pressure 80-89 mm Hg 3079F Patient screen for fall risk: no falls in last year or 1 fall with no injury in last year 1101F Systolic BP 130-139 mm Hg (Most Recent) 3075F 5. Long-term insulin use (Z79.4: buttermaker continuous churn (current) use of insulin) - Basaglar - No issues. Ordered: Body Mass Index (BMI) documented 3008F Current tobacco non-user 1036F Depression Screening Negative 3352F Influenza immunization administered or previously received 4274F Most recent diastolic blood pressure 80-89 mm Hg 3079F Patient screen for fall risk: no falls in last year or 1 fall with no injury in last year 1101F Systolic BP 130-139 mm Hg (Most Recent) 3075F 6. Depression (F32.A: Depression, unspecified) - Well controlled today. - Continue as before Ordered: Body Mass Index (BMI) documented 3008F Current tobacco non-user 1036F Depression Screening Negative 3352F Influenza immunization administered or previously received 4274F Most recent diastolic blood pressure 80-89 mm Hg 3079F Patient screen for fall risk: no falls in last year or 1 fall with no injury in last year 1101F Systolic BP 130-139 mm Hg (Most Recent) 3075F 7. Chronic obstructive pulmonary disease (J44.9: Chronic obstructive pulmonary disease, unspecified) - NO SOB today. - Take meds as before. Ordered: Body Mass Index (BMI) documented 3008F Current tobacco non-user 1036F Depression Screening Negative 3352F Influenza immunization administered or previously received 4274F Most recent diastolic blood pressure 80-89 mm Hg 307 (more content not included)... Normal [facility] Comment on above: Result Comment: Elec tronically Signed By: Tao GTZ, Dandre Solano.br\Date and Time Signed: 07/05/23 09:30 EDT RAD - CT Reporton 07-01-2023 [address] - CT Report [id number]#1.0 0TIFF Normal [facility] Pre-Certification Formon Pre-Certification Form [id number]#1. 00TIFF Normal [facility] Dexa Scanson 06-08-2023 Dexa Scans [id number]#1.0 0TIFF Normal [facility] Dexa Scanson 06-03-2023 Dexa Scans [id number] 30 [id number]#1.0 0TIFF Normal [facility] CHEMISTRYOrdered By: Marcos Tse on 04-05-2023 HbA1c (Bld) [Mass fraction] 7.2 % High <=5.9% [facility] ChemAutoSS CHEMISTRYOrdered By: Edwin bundy on 12-14-2022 Albumin DL <= 20 mg/L (U) [Mass/Vol] 61.6 microgram/mL High 0.0 - 19.0 mcg/mL [facility] Remisol Albumin Elph (U) [Mass fraction] 86.6 mg/dL Invalid Interpretation Code [facility] Remisol Comment on above: Interpretive Data: T he reference range and other method performance specifications have not been established for this test; results should be integrated into the clinical context for interpretation. Creatinine (U) [Mass/Vol] 214.9 mg/dL Invalid Interpretation Code [facility] Remisol Comment on above: Interpretive Data: T he reference range and other method performance specifications have not been established for this test; results should be integrated into the clinical context for interpretation. U Prot/Creat Ratio 403.00 mg/gm Cr High 0.00 - 200.00 mg/gm Cr [facility] Remisol CHEMISTRYOrdered By: SYSTEM SYSTEM on 12-14-2022 Albumin [Mass/Vol] 3.6 g/dL Normal 3.3 - 5.0 gm/dL [facility] Remisol Albumin/Globulin [Mass ratio] 1.0 {ratio} Low 1.1 - 2.2 [facility] Remisol ALP [Catalytic activity/Vol] 81 [iU]/d Normal 21 - 98 Int._Unit/L [facility] Remisol ALT No additional P-5'-P [Catalytic activity/Vol] [...] rate/Area] 42 mL/min/1.73 m2 Low >=59mL/min/1.73 m2 [facility] Comment on above: Interpretive Data: C hronic kidney disease could be indicated at eGFR's of less than 60 mL/min/1.73m2. Kidney failure is indicated at less than 15 mL/min/1.73m2. Globulin (S) [Mass/Vol] 3.6 g/dL Normal 1.4 - 4.0 gm/dL [facility] Remisol Glucose [Mass/Vol] 167 mg/dL Normal 55 - 199 mg/dL [facility] Remisol Comment on above: Interpretive Data: I f this glucose result represents a fasting glucose, interpretation should refer to the following reference range: 55-99 mg/dL Potassium [Moles/Vol] 4.7 mmol/L Normal 3.5 - 5.3 mmol/L [facility] Remisol Protein [Mass/Vol] 7.2 g/dL Normal 6.0 - 7.8 gm/dL [facility] Remisol Sodium [Moles/Vol] 139 mmol/L Normal 135 - 145 mmol/L [facility]isol Triglyceride [Mass/Vol] 233 mg/dL High <=149mg/dL [facility] Remisol TSH Qn 3.07 m[IU]/L Normal 0.34 - 5.60 mcIU/mL [facility] Urea nitrogen [Mass/Vol] 22 mg/dL High 5 - 21 mg/dL [facility] Remisol Urea nitrogen/Creatinine [Mass ratio] 16 mg/mg Normal 10 - 20 [facility] Remisol CHEMISTRYOrdered By: Leigh Magana on 12-14-2022 HbA1c (Bld) [Mass fraction] 9.0 % High <=5.9% [facility] ChemAutoSS HEMATOLOGYOrdered By: Green Plug SYSTEM on 12-14-2022 Basophils/100 WBC (Bld) 0.6 [...] Normal 4.0 - 11.0 E9/L [facility] HemeAutoSS CBC AUTO DIFFon 07-28-2022 BASO # 0.1 103/ul Normal 0.0-0.1 [facility] Comment on above: Performed By: #### C BC ####[facility] [address] [place], [place] [address]HwMariia Tremayne Harrison Basophils/100 WBC (Bld) 0.6 % Normal 0.2-2.0 [facility] Comment on above: Performed By: #### C BC ####[facility] [address] [place] [id number]. Tremayne Harrison EO # 0.3 103/ul Normal 0.0-0.7 [facility] Comment on above: Performed By: #### C BC ####[facility] [address] [place] [id number]. Tremayne Harrison Eosinophils/100 WBC (Bld) 3.9 % Normal 0.9-7.0 [facility] Comment on above: Performed By: #### C BC ####[facility] [address] [place], [place] [address]Dr. Tremayne Harrison Erythrocyte distribution width (RBC) [Ratio] 14.6 % Normal 11.0-15.0 [facility] Comment on above: Performed By: #### C BC ####[facility] [address] [place], [place] [address]Dr. Tremayne Harrison Hematocrit (Bld) [Volume fraction] 38.8 % Normal 36.0-48.0 [facility] Comment on above: Performed By: #### C BC ####[facility] [address] [place], [place] [address]Dr. Tremayne Harrison Hemoglobin (Bld) [Mass/Vol] 12.1 g/dL Normal 12.0-16.0 [facility] Comment on above: Performed By: #### C BC ####[facility] [address] [place], [place] [address]Dr. Tremayne Harrison IG # 0.02 10e3/ul Normal 0.00-0.03 [facility] Comment on above: Performed By: #### C BC ####[facility] [address] [place], [place] [address]Dr. Tremayne Harrison IG % 0.2 % Normal 0.0-0.5 [facility] Comment on above: Performed By: #### C BC ####[facility] [address] [place], [place] [address]Dr. Tremayne Harrison LYMPH # 2.8 103/ul Normal 1.2-3.8 [facility] Comment on above: Performed By: #### C BC ####[facility] [address] [place] [id number]. Tremayne Hunter Lymphocytes/100 WBC (Bld) 31.6 % Normal 20.5-60.0 [facility] Comment on above: Performed By: #### C BC ####[facility] [address] [place] [id number]. Princessniki Harrison MANUAL DIFF REQ NO Normal [facility] Comment on above: Performed By: #### C BC ####[facility] [address] [place] [id number]. Princessniki Harrison MCH (RBC) [Entitic mass] 25.2 pg Critically low 26.7-34.0 [facility] Comment on above: Performed By: #### C BC ####[facility] [address] [place] [address]Dr. Tremayne Hunter MCHC (RBC) [Mass/Vol] 31.2 g/dL Normal 29.9-35.2 [facility] Comment on above: Performed By: #### C BC ####[facility] [address] [place] [address]Dr. Tremayne Hunter MCV (RBC) [Entitic vol] 80.7 fL Critically low 81.0-99.0 [facility] Comment on above: Performed By: #### C BC ####[facility] [address] [place] [address]Dr. Princessniki Hunter MONO # 0.8 103/ul Normal 0.3-0.8 [facility] Comment on above: Performed By: #### C BC ####[facility] [address] [place] [id number]. Princessniki Harrison Monocytes/100 WBC (Bld) 8.5 % Normal 1.7-12.0 [facility] Comment on above: Performed By: #### C BC ####[facility] [address] [place], [place] [address]Dr. Tremayne Harrison NEUT # 4.9 103/ul Normal 1.4-6.5 [facility] Comment on above: Performed By: #### C BC ####[facility] [address] [place], [place] [address]Xs. Tremayne Harrison Neutrophils/100 WBC (Bld) 55.2 % Normal 43.0-75.0 [facility] Comment on above: Performed By: #### C BC ####[facility] [address] [place], [place] [address]Qr. Tremayne Harrison Platelet mean volume (Bld) [Entitic vol] 8.5 fL Critically low 9.5-13.5 [facility] Comment on above: Performed By: #### C BC ####[facility] [address] [place], [place] [address]Cu. Tremayne Harrison PLT 273 103/ul Normal 150-450 [facility] Comment on above: Performed By: #### C BC ####[facility] [address] [place] [id number]. Tremayne Harrison RBC 4.81 106/ul Normal 4.20-5.40 [facility] Comment on above: Performed By: #### C BC ####[facility] [address] [place], [place] [address]Pp. Tremayne Harrison WBC 8.8 103/ul Normal 4.0-11.0 [facility] Comment on above: Performed By: #### C BC ####[facility] [address] [place] [id number]. Tremayne Harrison CT CHEST W CONon 07-28-2022 [...] by: SAVITA UNLU Date: 2022-07-28 17:05 Normal [facility] D-DIMERon 07-28-2022 D-DIMER 0.37 mg/L FEU Normal <=0.59 [facility] Comment on above: Performed By: #### D DIM #### [facility] [address] [place], [place] [address] Dr. Tremayne Harrison D-DIMER COMMENTS SEE BELOW Normal [facility] Comment on above: Result Comment: Incr eases [...] hospitalization. Performed By: #### D DIM #### [facility] [address] [place] [address] [address] Tremayne Harrison PROF 14(COMP METB)on 023 Albumin [Mass/Vol] 3.2 g/dL Critically low 3.4-5.0 [facility] Comment on above: Performed By: #### C MP, HSTROPN #### [facility] [address] [place] [address] [address] Tremayne Harrison Albumin/Globulin [Mass ratio] 0.8 {ratio} Normal [facility] Comment on above: Performed By: #### C MP, HSTROPN #### [facility] [address] [place] [address] [address] Tremayne Harrison ALP [Catalytic activity/Vol] 98 U/L Normal 46-116 [facility] Comment on above: Performed By: #### C MP, HSTROPN #### [facility] [address] [place] [address] [address] Tremayne Harrison ALT [Catalytic activity/Vol] 38 U/L Normal 14-59 [facility] Comment on above: Performed By: #### C MP, HSTROPN #### [facility] [address] [place] [address] [address] Tremayne Harrison Anion gap [Moles/Vol] 12.2 mmol/L Normal [facility] Comment on above: Performed By: #### C MP, HSTROPN #### [facility] [address] [place] [address] [address] Tremayne Harrison AST [Catalytic activity/Vol] 19 U/L Normal 15-37 [facility] Comment on above: Performed By: #### C MP, HSTROPN #### [facility] [address] [place] [address] [address] Tremayne Harrison Bilirubin [Mass/Vol] 0.5 mg/dL Normal 0.2-1.0 [facility] Comment on above: Performed By: #### C MP, HSTROPN #### [facility] [address] [place] [address] [address] Tremayne Harrison Calcium [Mass/Vol] 9.6 mg/dL Normal 8.5-10.1 [facility] Comment on above: Performed By: #### C MP, HSTROPN #### [facility] [address] [place] [address] [address] Tremayne Harrison Chloride [Moles/Vol] 106 mmol/L Normal 98-107 [facility] Comment on above: Performed By: #### C MP, HSTROPN #### [facility] [address] [place] [address] [address] Tremayne Harrison CO2 [Moles/Vol] 27.5 mmol/L Normal 21.0-32.0 [facility] Comment on above: Performed By: #### C MP, HSTROPN #### [facility] [address] [place] [address] Dr. Tremayne Harrison Creatinine [Mass/Vol] 1.15 mg/dL Critically high 0.55-1.02 [facility] Comment on above: Performed By: #### C DIANA, HSTROPN #### [facility] [address] [place] [address] Dr. Tremayne Harrison EGFR-AF MALDIVIAN 58 mL/min/1.73m2 Critically low >=60 [facility] Comment on above: Performed By: #### C DIANA, HSTROPN #### [facility] [address] [place] [address] Dr. Tremayne Harrison EGFR-NON AF MALDIVIAN 48 mL/min/1.73m2 Critically low >=60 [facility] Comment on above: Performed By: #### C MP, HSTROPN #### [facility] [address] [place] [address] Dr. Tremayne Harrison Globulin (S) [Mass/Vol] 4.1 g/dL Normal [facility] Comment on above: Performed By: #### C MP, HSTROPN #### [facility] [address] [place] [address] Dr. Tremayne Harrison Glucose [Mass/Vol] 145 mg/dL Critically high 74-106 [facility] Comment on above: Performed By: #### C MP, HSTROPN #### [facility] [address] [place] [address] Dr. Tremayne Harrison Potassium [Moles/Vol] 4.7 mmol/L Normal 3.5-5.1 [facility] Comment on above: Performed By: #### C DIANA, HSTROPN #### [facility] [address] [place] [address] Dr. Tremayne Harrison Protein [Mass/Vol] 7.3 g/dL Normal 6.4-8.2 [facility] Comment on above: Performed By: #### C MP, HSTROPN #### [facility] [address] [place] [address] [address] Tremayne Harrison Sodium [Moles/Vol] 141 mmol/L Normal 136-145 [facility] Comment on above: Performed By: #### C DIANA, HSTROPN #### [facility] [address] [place] [address] Dr. Tremayne Harrison Urea nitrogen [Mass/Vol] 15.0 mg/dL Normal 7.0-18.0 [facility] Comment on above: Performed By: #### C MP, HSTROPN #### [facility] [address] [place] [address] Dr. Tremayne Harrison Urea nitrogen/Creatinine [Mass ratio] 13.0 mg/mg Normal [facility] Comment on above: Performed By: #### C MP, HSTROPN #### [facility] [address] [place] [address] Dr. Tremayne Harrison TROPONIN, HIGH SENSITIVITYon 07-28-2022 HSTROP 10.9 pg/mL Normal 4.0-51.3 [facility] Comment on above: Result Comment: CUT- OFF POINTS HAVE BEEN ESTABLISHED BASED ON THE FOURTH UNIVERSAL DEFINITIONS OF MYOCARDIAL INFARCTION. THE UPPER REFERENCE LIMIT (URL) OF TROPONIN, DEFINED THE 99TH PERCENTILE OF cTnI DISTRIBUTION IN A REFERENCE POPULATION, HAS BEEN CONFIRMED THE DECISION THRESHOLD FOR AL DIAGNOSIS. Performed By: #### C MP, HSTROPN #### [facility] [address] [place] [address] Dr. Tremayne Harrison XR CHEST 1 Von [...] PAOLO PHAM Date: 2022-07-28 15:13 Normal [facility] GLYCOHEMOGLOBIN A1Con 2022 ADA RECOMMENDATION SEE BELOW Normal [facility] Comment on above: Result Comment: ADA RECOMMENDED LIMIT 4.0 - 6.0 ADA THERAPEUTIC TARGET < 7.0 ACTION SUGGESTED > 7.0 Performed By: #### A 1C #### [facility] [address] [place] [address] Dr. Tremayne Harrison Glucose [Mass/Vol] 177 mg/dL Normal [facility] Comment on above: Performed By: #### A 1C #### [facility] [address] [place] [address] Dr. Tremayne Harrison HbA1c (Bld) [Mass fraction] 7.8 % Critically high 4.5-6.2 [facility] Comment on above: Performed By: #### A 1C #### [facility] [address] [place] [address] Dr. Tremayne Harrison GLYCOHEMOGLOBIN A1Con 2022 ADA RECOMMENDATION SEE BELOW Normal [facility] Comment on above: Result Comment: ADA RECOMMENDED LIMIT 4.0 - 6.0 ADA THERAPEUTIC TARGET < 7.0 ACTION SUGGESTED > 7.0 Performed By: #### A 1C #### [facility] [address] [address] [address] Tremayne Harrison Glucose [Mass/Vol] 214 mg/dL Normal [facility] Comment on above: Performed By: #### A 1C #### [facility] [address] [place] [address] Dr. Tremayne Harrison HbA1c (Bld) [Mass fraction] 9.1 % Critically high 4.5-6.2 [facility] Comment on above: Performed By: #### A 1C #### [facility] [address] [address] [address] Tremayne Harrison GLYCOHEMOGLOBIN A1Con 2021 ADA RECOMMENDATION SEE BELOW Normal [facility] Comment on above: Result Comment: ADA RECOMMENDED LIMIT 4.0 - 6.0 ADA THERAPEUTIC TARGET < 7.0 ACTION SUGGESTED > 7.0 Performed By: #### A 1C #### [facility] [address] [address] [address] Tremayne Harrison Glucose [Mass/Vol] 223 mg/dL Normal [facility] Comment on above: Performed By: #### A 1C #### [facility] [address] [address] [address] Tremayne Harrison HbA1c (Bld) [Mass fraction] 9.4 % Critically high 4.5-6.2 [facility] Comment on above: Performed By: #### A 1C #### [facility] [address] [address] [address] Tremayne Harrison MG MAMM SCREEN 3D ISRAEL CADon 10-10-2021 MG MAMM SCREEN 3D ISRAEL CAD Patient: PATO CORRAL Exam Date: 10/10/2021 : 1960 Gender:F Ordering : DR GIANFRANCO LAU D.O. Admission #: [id number] Family : Order #: [id number] CLICK HERE TO VIEW EXAM RADIOLOGY REPORT PROCEDURE: MAMMOGRAM SCREENING 3D BILATERAL CAD COMPARISON: MG MAMM SCREEN 3D ISRAEL CAD, 10/07/2020. MG MAMM SCREEN ISRAEL W CAD, 04/10/2019. INDICATIONS: Screening mammography Calculator [...] colon cancer at age 57. LOCATION: [facility] BREAST COMPOSITION: Scattered areas fibroglandular density. FINDINGS: [...] Danielle M.D. on 10/10/2021 at 11:14 Normal [facility] MICROALBUMIN, RAND URon 09-13 mALB 23.1 mg/L Normal <=30.0 [facility] Comment on above: Performed By: #### M ALBR ####[facility] [address] [address]Dr. Tremayne Harrison PROF 14(COMP METB)on 022 Albumin [Mass/Vol] 3.2 g/dL Critically low 3.4-5.0 Th e [facility] Comment on above: Performed By: #### C MP #### [facility] [address] [place] [address] Dr. Tremayne Harrison Albumin/Globulin [Mass ratio] 0.9 {ratio} Normal [facility] Comment on above: Performed By: #### C MP #### [facility] [address] [address] [address] Tremayne Harrison ALP [Catalytic activity/Vol] 103 U/L Normal 46-116 [facility] Comment on above: Performed By: #### C MP #### [facility] [address] [address] [address] Tremayne Harrison ALT [Catalytic activity/Vol] 36 U/L Normal 14-59 [facility] Comment on above: Performed By: #### C MP #### [facility] [address] [place] [address] Dr. Tremayne Harrison Anion gap [Moles/Vol] 11.8 mmol/L Normal [facility] Comment on above: Performed By: #### C MP #### [facility] [address] [address] [address] Tremayne Harrison AST [Catalytic activity/Vol] 18 U/L Normal 15-37 [facility] Comment on above: Performed By: #### C MP #### [facility] [address] [address] [address] Tremayne Harrison Bilirubin [Mass/Vol] 0.3 mg/dL Normal 0.2-1.0 [facility] Comment on above: Performed By: #### C MP #### [facility] [address] [address] [address] Tremayne Harrison Calcium [Mass/Vol] 8.7 mg/dL Normal 8.5-10.1 [facility] Comment on above: Performed By: #### C MP #### [facility] [address] [address] [address] Tremayne Harrison Chloride [Moles/Vol] 106 mmol/L Normal 98-107 [facility] Comment on above: Performed By: #### C MP #### [facility] [address] [address] [address] Tremayne Harrison CO2 [Moles/Vol] 25.6 mmol/L Normal 21.0-32.0 [facility] Comment on above: Performed By: #### C MP #### [facility] [address] [address] [address] Tremayne Harrison Creatinine [Mass/Vol] 1.09 mg/dL Critically high 0.55-1.02 [facility] Comment on above: Performed By: #### C MP #### [facility] [address] [address] [address] Tremayne Harrison EGFR-AF MALDIVIAN >60 Normal >=60 [facility] Comment on above: Performed By: #### C MP #### [facility] [address] [address] [address] Tremayne Harrison EGFR-NON AF MALDIVIAN 51 mL/min/1.73m2 Critically low >=60 [facility] Comment on above: Performed By: #### C MP #### [facility] [address] [address] [address] Tremayne Harrison Globulin (S) [Mass/Vol] 3.6 g/dL Normal [facility] Comment on above: Performed By: #### C MP #### [facility] [address] [address] [address] Tremayne Harrison Glucose [Mass/Vol] 210 mg/dL Critically high 74-106 [facility] Comment on above: Performed By: #### C MP #### [facility] [address] [place], [place] [address] Dr. Tremayne Harrison Potassium [Moles/Vol] 4.4 mmol/L Normal 3.5-5.1 [facility] Comment on above: Performed By: #### C MP #### [facility] [address] [address] [address] Tremayne Harrison Protein [Mass/Vol] 6.8 g/dL Normal 6.4-8.2 [facility] Comment on above: Performed By: #### C MP #### [facility] [address] [address] [address] Tremayne Harrison Sodium [Moles/Vol] 139 mmol/L Normal 136-145 [facility] Comment on above: Performed By: #### C MP #### [facility] [address] [address] [address] Tremayne Harrison Urea nitrogen [Mass/Vol] 15.0 mg/dL Normal 7.0-18.0 [facility] Comment on above: Performed By: #### C MP #### [facility] [address] [address] [address] Tremayne Harrison Urea nitrogen/Creatinine [Mass ratio] 13.8 mg/mg Normal [facility] Comment on above: Performed By: #### C MP #### [facility] [id number] Tremayne Harrison CARDIAC STRESS TESTon 2021 CARDIAC STRESS TEST The [place], [place] NAME: PATO CORRAL DATE OF : MEDICAL REC#: [id number] FINANCIAL WELLNESS COACH: [address] [facility], TRANSADMIT DATE: 08/18/2021 09:35:00 INCINERATOR OPERATOR DATE: 08/18/2021 19:00 DICTATING PHYSICIAN: MARTINE MCINTOSH [...] by: DR MARTINE MCINTOSH 08/24/2021 10:13:00 Normal [facility] NM STRESS/REST MULTIon 08-18 NM STRESS/REST MULTI Patient: PATO CORRAL Exam Date: 08/18/2021 : 1960 Gender:F Ordering : RAJINDER MOHAMUD Admission #: [id number] Family : Order #: [id number] CLICK HERE TO VIEW EXAM RADIOLOGY REPORT [...] MD on 08/18/2021 at 14:36 Normal [facility] Pulmonary Functionon 03-02-2 019 Pulmonary Function MR #: [id number] [facility] PT. Name: Pato Corral Date: [...] Corral M.D. Date Trans: 05/14/2018 04:38 A/emily [id number] cc: Gianfranco Lau D.O. [address] [place] [id number] Normal [facility] POC GLUCOSE LABon 05-03-2018 Glucose mass conc 223 mg/dL High 70-100 [facility] Comment on above: Performed By: #### 5 0103 #### [facility] [address] [place] [address], [place] Glucose mass conc 261 mg/dL High 70-100 [facility] Comment on above: Order Comment: No: D o not add to previous draw Performed By: #### 5 0103 #### [facility] [address] [place] [address], [place] Glucose mass conc 162 mg/dL High 70-100 [facility] Comment on above: Performed By: #### 5 0103 #### [facility] [address] [place] [address], [place] BASIC METABOLIC PANELon 04-15 Calcium mass conc 8.0 mg/dL Low 8.6-10.3 [facility] Comment on above: Order Comment: No: D o not add to previous draw Performed By: #### 5 0103 #### [facility] [address] [place] [address], [place] Chloride molar conc 100 mmol/L Normal 98-107 [facility] Comment on above: Order Comment: No: D o not add to previous draw Performed By: #### 5 0103 #### [facility] [address] [place] [address], [place] CO2 molar conc 29 mmol/L Normal 21-31 [facility] Comment on above: Order Comment: No: D o not add to previous draw Performed By: #### 5 0103 #### [facility] [address] [place] [address], [place] Creatinine mass conc 0.74 mg/dL Normal 0.60-1.20 [facility] Comment on above: Order Comment: No: D o not add to previous draw Performed By: #### 5 0103 #### [facility] [address] [place] [address], [place] GFR/1.73 sq M predicted among blacks MDRD vol rate/area (S/P/Bld) mL/min/{1.73_m2} Normal >60 [facility] Comment on above: Order Comment: No: D o not add to previous draw Performed By: #### 5 0103 #### [facility] [address] [place] [address], [place] GFR/1.73 sq M predicted among non-blacks MDRD vol rate/area (S/P/Bld) mL/min/{1.73_m2} Normal >60 [facility] Comment on above: Order Comment: No: D o not add to previous draw Performed By: #### 5 0103 #### [facility] [address] [place] [address], [place] Glucose mass conc 157 mg/dL High 70-100 [facility] Comment on above: Order Comment: No: D o not add to previous draw Performed By: #### 5 0103 #### [facility] [address] [place] [address], [facility] Potassium molar conc 3.6 mmol/L Normal 3.5-5.1 [facility] Comment on above: Order Comment: No: D o not add to previous draw Performed By: #### 5 0103 #### [facility] [address] [place] [address], [facility] Sodium molar conc 135 mmol/L Low 136-145 [facility] Comment on above: Order Comment: No: D o not add to previous draw Performed By: #### 5 0103 #### [facility] [address] [place] [address], [facility] Urea nitrogen mass conc 15 mg/dL Normal 7-25 [facility] Comment on above: Order Comment: No: D o not add to previous draw Performed By: #### 5 0103 #### [facility] [address] [place] [address], [facility] CBC COMPLETE BLOOD COUNTon 0 - Erythrocyte distribution width Ratio (RBC) 15.1 % High 11.5-15.0 [facility] Comment on above: Order Comment: No: D o not add to previous draw Performed By: #### 5 3 #### [facility] [address] [place] [address], [facility] Hematocrit Volume Fraction (Bld) 23.7 % Low 36.0-45.0 [facility] Comment on above: Order Comment: No: D o not add to previous draw Performed By: #### 5 0103 #### [facility] [address] [place] [address], [facility] Hemoglobin mass conc (Bld) 8.0 g/dL Low 12.0-15.0 [facility] Comment on above: Order Comment: No: D o not add to previous draw Performed By: #### 5 0103 #### [facility] [address] MCH Entitic mass (RBC) 27.6 pg Normal 27.0-33.0 [facility] Comment on above: Order Comment: No: D o not add to previous draw Performed By: #### 5 0103 #### [facility] [address] [place] [address], [facility] MCHC mass conc (RBC) 33.8 g/dL Normal 32.0-35.0 [facility] Comment on above: Order Comment: No: D o not add to previous draw Performed By: #### 5 0103 #### [facility] [address] [place] [address], [facility] MCV Entitic volume (RBC) 81.7 fL Low 82.0-98.0 [facility] Comment on above: Order Comment: No: D o not add to previous draw Performed By: #### 5 0103 #### [facility] [address] [place] [address], [facility] Nucleated RBC/100 WBC Ratio (Bld) 0 % Normal 0-0 [facility] Comment on above: Order Comment: No: D o not add to previous draw Performed By: #### 5 0103 #### [facility] [address] [place] [id number], [facility] PLAT CNT 151 10*3/uL Normal 150-400 [facility] Comment on above: Order Comment: No: D o not add to previous draw Performed By: #### 5 0103 #### [facility] [address] [place] [id number], [facility] RBC #/vol (Bld) 2.90 10*6/uL Low 3.80-5.00 [facility] Comment on above: Order Comment: No: D o not add to previous draw Performed By: #### 5 0103 #### [facility] [address] WBC #/vol (Bld) 10.78 10*3/uL High 4.00-10.60 [facility] Comment on above: Order Comment: No: D o not add to previous draw Performed By: #### 5 0103 #### [facility] [address] [place] [address], [facility] MAGNESIUM BLOODon 05-02-2018 Magnesium mass conc 1.6 mg/dL Low 1.9-2.7 [facility] Comment on above: Order Comment: No: D o not add to previous draw Performed By: #### 5 0103 #### [facility] [address] [place] [address], [facility] POC GLUCOSE LABon 05-02-2018 Glucose mass conc 172 mg/dL High 70-100 [facility] Comment on above: Performed By: #### 5 0103 #### [facility] [address] [place] [address], [facility] Glucose mass conc 203 mg/dL High 70-100 [facility] Comment on above: Performed By: #### 5 0103 #### [facility] [address] [place] [address], [facility] Glucose mass conc 216 mg/dL High 70-100 [facility] Comment on above: Performed By: #### 5 0103 #### [facility] [address] [place] [address], [facility] Glucose mass conc 160 mg/dL High 70-100 [facility] Comment on above: Performed By: #### 5 0103 #### [facility] [address] [place] [address], [facility] Glucose mass conc 105 mg/dL High 70-100 [facility] Comment on above: Performed By: #### 5 0103 #### [facility] [address] [place] [address], [facility] PORTABLE CHEST 1 VIEWon 04-15 PORTABLE CHEST 1 VIEW [facility] Department of Radiology [address] [place] [id number] ======== Patient Name: PATO CORRAL : 1960 Sex: F Age: Race: White Pt. Location: [address] [place] [address] Patient Status: I Ordered Date: 05/02/2018 5:00:00 [...] unchanged. Electronically signed by:Antwon Groves. Transcribed by: [id number], User Resident: Electronically Signed by: ANTWON GROVES @ 05/02/2018 06:59 AM Normal [facility] Comment on above: Order Comment: No: D o not add to previous draw BASIC METABOLIC PANELon 04-15 Calcium mass conc 8.0 mg/dL Low 8.6-10.3 [facility] Comment on above: Order Comment: No: D o not add to previous draw Performed By: #### 5 0103 #### [facility] [address] [place] [address], [place] Chloride molar conc 103 mmol/L Normal 98-107 [facility] Comment on above: Order Comment: No: D o not add to previous draw Performed By: #### 5 0103 #### [facility] [address] [place] [address], [place] CO2 molar conc 27 mmol/L Normal 21-31 [facility] Comment on above: Order Comment: No: D o not add to previous draw Performed By: #### 5 0103 #### [facility] [address] [place] [address], [place] Creatinine mass conc 0.84 mg/dL Normal 0.60-1.20 [facility] Comment on above: Order Comment: No: D o not add to previous draw Performed By: #### 5 0103 #### [facility] [address] [place] [address], [place] GFR/1.73 sq M predicted among blacks MDRD vol rate/area (S/P/Bld) mL/min/{1.73_m2} Normal >60 [facility] Comment on above: Order Comment: No: D o not add to previous draw Performed By: #### 5 0103 #### [facility] [address] [place] [address], [place] GFR/1.73 sq M predicted among non-blacks MDRD vol rate/area (S/P/Bld) mL/min/{1.73_m2} Normal >60 [facility] Comment on above: Order Comment: No: D o not add to previous draw Performed By: #### 5 0103 #### [facility] [address] [place] [address], [place] Glucose mass conc 159 mg/dL High 70-100 [facility] Comment on above: Order Comment: No: D o not add to previous draw Performed By: #### 5 0103 #### [facility] [address] [place] [address], [facility] Potassium molar conc 4.2 mmol/L Normal 3.5-5.1 [facility] Comment on above: Order Comment: No: D o not add to previous draw Performed By: #### 5 0103 #### [facility] [address] [place] [address], [facility] Sodium molar conc 135 mmol/L Low 136-145 [facility] Comment on above: Order Comment: No: D o not add to previous draw Performed By: #### 5 0103 #### [facility] [address] [place] [address], [facility] Urea nitrogen mass conc 18 mg/dL Normal 7-25 [facility] Comment on above: Order Comment: No: D o not add to previous draw Performed By: #### 5 0103 #### [facility] [address] [place] [address], [facility] CBC COMPLETE BLOOD COUNTon 0 - Erythrocyte distribution width Ratio (RBC) 15.4 % High 11.5-15.0 [facility] Comment on above: Order Comment: No: D o not add to previous draw Performed By: #### 5 0103 #### [facility] [address] [place] [address], [facility] Hematocrit Volume Fraction (Bld) 21.5 % Low 36.0-45.0 [facility] Comment on above: Order Comment: No: D o not add to previous draw Performed By: #### 5 0103 #### [facility] [address] [place] [address], [facility] Hemoglobin mass conc (Bld) 7.1 g/dL Low 12.0-15.0 [facility] Comment on above: Order Comment: No: D o not add to previous draw Performed By: #### 5 0103 #### [facility] [address] MCH Entitic mass (RBC) 27.7 pg Normal 27.0-33.0 [facility] Comment on above: Order Comment: No: D o not add to previous draw Performed By: #### 5 0103 #### [facility] [address] MCHC mass conc (RBC) 33.0 g/dL Normal 32.0-35.0 [facility] Comment on above: Order Comment: No: D o not add to previous draw Performed By: #### 5 3 #### [facility] [address] MCV Entitic volume (RBC) 84.0 fL Normal 82.0-98.0 [facility] Comment on above: Order Comment: No: D o not add to previous draw Performed By: #### 5 3 #### [facility] [address] [facility] [address] Nucleated RBC/100 WBC Ratio (Bld) 0 % Normal 0-0 [facility] Comment on above: Order Comment: No: D o not add to previous draw Performed By: #### 5 3 #### [facility] [address] [facility] [address] PLAT CNT 102 10*3/uL Low 150-400 [facility] Comment on above: Order Comment: No: D o not add to previous draw Performed By: #### 5 3 #### [facility] [address] [place] [address], [facility] RBC #/vol (Bld) 2.56 10*6/uL Low 3.80-5.00 [facility] Comment on above: Order Comment: No: D o not add to previous draw Performed By: #### 5 3 #### [facility] [address] WBC #/vol (Bld) 11.57 10*3/uL High 4.00-10.60 [facility] Comment on above: Order Comment: No: D o not add to previous draw Performed By: #### 5 0103 #### [facility] [address] [place] [address], [facility] HEMOGLOBINon 05-01-2018 Hemoglobin mass conc (Bld) 7.3 g/dL Low 12.0-15.0 [facility] Comment on above: Order Comment: No: D o not add to previous draw Performed By: #### 5 0103 #### [address] POC GLUCOSE LABon 05-01-2018 Glucose mass conc 253 mg/dL High 70-100 [facility] Comment on above: Performed By: #### 5 0103 #### [address] Glucose mass conc 180 mg/dL High 70-100 [facility] Comment on above: Performed By: #### 5 0103 #### [place] [address], [facility] Glucose mass conc 238 mg/dL High 70-100 [facility] Comment on above: Performed By: #### 5 0103 #### [place] [address], [facility] Glucose mass conc 161 mg/dL High 70-100 [facility] Comment on above: Performed By: #### 5 0103 #### [address] [address], [facility] PORTABLE CHEST 1 VIEWon 04-15 PORTABLE CHEST 1 VIEW [facility] Department of Radiology [address] [place] [address] ======== Patient Name: PATO CORRAL : 1960 Sex: F Age: Race: White Pt. Location: [address] [place] [address] Patient Status: I Ordered Date: 05/01/2018 5:00:00 [...] view was obtained. COMPARISON: Chest radiograph from 2018, April 29, 2018. FINDINGS: Stable postsurgical [...] findings. Electronically signed by:Jerry Charles. Transcribed by: [email or web address], User Resident: MACARIO PATEL Electronically Signed by: JERRY CHARLES @ 05/01/2018 01:37 PM I personally read this/these film(s) with this resident Normal [facility] Comment on above: Order Comment: No: D o not add to previous draw RBC'S 1 UNITon 05-01-2018 CROSSMATCH INTERP 1 COMP Normal [facility] Comment on above: Performed By: #### 5 0103 #### [facility] [address] [place] [address], [facility] Protein mass conc 685 g/dL Normal [facility] Comment on above: Performed By: #### 5 0103 #### [facility] [address] [place] [address], [facility] Protein mass conc PT Normal [facility] Comment on above: Result Comment: Resu lt changed by IF on 05/01/2018 10:28. The previous value was XM. Result changed by IF on 05/02/2018 00:30. The previous value was IS. Performed By: #### 5 0103 #### [facility] [address] [place] [address], [facility] UNIT ABO 1 O Normal [facility] Comment on above: Performed By: #### 5 0103 #### [facility] [address] [place] [address], [facility] UNIT ID 1 [id number] Normal [facility] Comment on above: Performed By: #### 5 0103 #### [facility] [address] [place] [address], [facility] UNIT RH 1 Positive Normal [facility] Comment on above: Performed By: #### 5 0103 #### [facility] [address] [place] [address], [place] TYPE AND SCREENon 05-01-2018 ABO INTERPRETATION O Normal [facility] Comment on above: Performed By: #### 5 0103 #### [facility] [address] [place] [address], [place] RH INTERPRETATION Positive Normal [facility] Comment on above: Performed By: #### 5 0103 #### [facility] [address] [place] [address], [facility] BASIC METABOLIC PANELon 04-15 Calcium mass conc 8.2 mg/dL Low 8.6-10.3 [facility] Comment on above: Order Comment: No: D o not add to previous draw Performed By: #### 5 0103 #### [facility] [address] [place] [address], [place] Chloride molar conc 110 mmol/L High 98-107 [facility] Comment on above: Order Comment: No: D o not add to previous draw Performed By: #### 5 0103 #### [facility] [address] [place] [address], [place] CO2 molar conc 26 mmol/L Normal 21-31 [facility] Comment on above: Order Comment: No: D o not add to previous draw Performed By: #### 5 0103 #### [facility] [address] [place] [address], [place] Creatinine mass conc 0.76 mg/dL Normal 0.60-1.20 [facility] Comment on above: Order Comment: No: D o not add to previous draw Performed By: #### 5 0103 #### [facility] [address] [place] [address], [place] GFR/1.73 sq M predicted among blacks MDRD vol rate/area (S/P/Bld) mL/min/{1.73_m2} Normal >60 [facility] Comment on above: Order Comment: No: D o not add to previous draw Performed By: #### 5 0103 #### [facility] [address] [place] [address], [place] GFR/1.73 sq M predicted among non-blacks MDRD vol rate/area (S/P/Bld) mL/min/{1.73_m2} Normal >60 [facility] Comment on above: Order Comment: No: D o not add to previous draw Performed By: #### 5 0103 #### [facility] [address] [place] [address], [facility] Glucose mass conc 108 mg/dL High 70-100 [facility] Comment on above: Order Comment: No: D o not add to previous draw Performed By: #### 5 0103 #### [facility] [address] [place] [address], [facility] Potassium molar conc 4.5 mmol/L Normal 3.5-5.1 [facility] Comment on above: Order Comment: No: D o not add to previous draw Performed By: #### 5 0103 #### [facility] [address] [place] [address], [facility] Sodium molar conc 140 mmol/L Normal 136-145 [facility] Comment on above: Order Comment: No: D o not add to previous draw Performed By: #### 5 0103 #### [facility] [address] [place] [address], [facility] Urea nitrogen mass conc 16 mg/dL Normal 7-25 [facility] Comment on above: Order Comment: No: D o not add to previous draw Performed By: #### 5 0103 #### [facility] [address] [place] [address], [facility] CBC COMPLETE BLOOD COUNTon 0 - Erythrocyte distribution width Ratio (RBC) 15.8 % High 11.5-15.0 [facility] Comment on above: Order Comment: No: D o not add to previous draw Performed By: #### 5 0103 #### [facility] [address] [place] [address], [facility] Hematocrit Volume Fraction (Bld) 24.5 % Low 36.0-45.0 [facility] Comment on above: Order Comment: No: D o not add to previous draw Performed By: #### 5 0103 #### [facility] [address] [place] [address], [facility] Hemoglobin mass conc (Bld) 8.0 g/dL Low 12.0-15.0 [facility] Comment on above: Order Comment: No: D o not add to previous draw Performed By: #### 5 0103 #### [facility] [address] [place] [address], [facility] IMM PLATELET FRAC 1.6 % Normal 0.8-6.3 [facility] Comment on above: Order Comment: No: D o not add to previous draw Performed By: #### 5 0103 #### [facility] [address] [place] [address], [facility] MCH Entitic mass (RBC) 27.8 pg Normal 27.0-33.0 [facility] Comment on above: Order Comment: No: D o not add to previous draw Performed By: #### 5 0103 #### [facility] [address] [place] [address], [facility] MCHC mass conc (RBC) 32.7 g/dL Normal 32.0-35.0 [facility] Comment on above: Order Comment: No: D o not add to previous draw Performed By: #### 5 0103 #### [facility] [address] [place] [id number], [facility] MCV Entitic volume (RBC) 85.1 fL Normal 82.0-98.0 [facility] Comment on above: Order Comment: No: D o not add to previous draw Performed By: #### 5 0103 #### [facility] [address] [place] [address], [facility] Nucleated RBC/100 WBC Ratio (Bld) 0 % Normal 0-0 [facility] Comment on above: Order Comment: No: D o not add to previous draw Performed By: #### 5 0103 #### [facility] [address] [place] [address], [facility] PLAT CNT 98 10*3/uL Low 150-400 [facility] Comment on above: Order Comment: No: D o not add to previous draw Performed By: #### 5 0103 #### [facility] [address] [place] [address], [facility] RBC #/vol (Bld) 2.88 10*6/uL Low 3.80-5.00 [facility] Comment on above: Order Comment: No: D o not add to previous draw Performed By: #### 5 0103 #### [facility] [address] [facility] [place] [place] [address], [facility] WBC #/vol (Bld) 14.45 10*3/uL High 4.00-10.60 [facility] Comment on above: Order Comment: No: D o not add to previous draw Performed By: #### 5 102 #### [facility] [address] [facility]. [address] MAGNESIUM BLOODon 04-30-2018 Magnesium mass conc 2.2 mg/dL Normal 1.9-2.7 [facility] Comment on above: Performed By: #### 5 3 #### [facility] [address] [facility]. [address] POC GLUCOSE LABon 04-30-2018 Glucose mass conc 135 mg/dL High 70-100 [facility] Comment on above: Performed By: #### 5 3 #### [facility] [address] [facility] [address], [facility] Glucose mass conc 201 mg/dL High 70-100 [facility] Comment on above: Performed By: #### 5 3 #### [facility] [address] [facility] [address], [facility] Glucose mass conc 224 mg/dL High 70-100 [facility] Comment on above: Performed By: #### 5 3 #### [facility] [address] [facility] [address], [facility] Glucose mass conc 134 mg/dL High 70-100 [facility] Comment on above: Performed By: #### 5 0103 #### [facility] [address] [place] [address], [facility] Glucose mass conc 113 mg/dL High 70-100 [facility] Comment on above: Performed By: #### 5 0103 #### [facility] [address] [place] [address], [facility] Glucose mass conc 96 mg/dL Normal 70-100 [facility] Comment on above: Performed By: #### 5 0103 #### [facility] [address] [place] [address], [facility] Glucose mass conc 111 mg/dL High 70-100 [facility] Comment on above: Performed By: #### 5 0103 #### [facility] [address] [facility] [place] [address], [facility] Glucose mass conc 114 mg/dL High 70-100 [facility] Comment on above: Performed By: #### 5 0103 #### [facility] [address] [place] [address], [facility] Glucose mass conc 137 mg/dL High 70-100 [facility] Comment on above: Performed By: #### 5 0103 #### [facility] [address] [facility] [place] [place] [address], [facility] PORTABLE CHEST 1 VIEWon 04-15 PORTABLE CHEST 1 VIEW [facility] Department of Radiology [address] [place] [address] ======== Patient Name: PATO CORRAL ANTWON : 1960 Sex: F Age: Race: White Pt. Location: [id number] Patient Status: I Ordered Date: 04/30/2018 5:00:00 [...] are intact. Interval removal of right-sided IJ Houston-Jen catheter. No significant change in positioning of [...] pulmonary vasculature. * Interval removal of right-sided Houston-Jen catheter from prior study. Approved by:Rudy Quiñones on 04/30/2018 1:14 PM EST. I, Jerry Charles, have reviewed the images and report and concur with these findings. Electronically signed by:Jerry Charles. Transcribed by: [email or web address], User Resident: [email or web address] Electronically Signed by: JERRY CHARLES @ 04/30/2018 01:32 PM I personally read this/these film(s) with this resident Normal [facility] Comment on above: Order Comment: No: D o not add to previous draw ARTERIAL BLOOD GAS WITH ICAo n 04-29-2018 BASE EXCESS -1 mmol/L Normal -2-2 [facility] Comment on above: Performed By: #### 5 0103 #### [facility] [address] [place] [address], [facility] [employer] [place] Normal [facility] Comment on above: Performed By: #### 5 0103 #### [facility] [address] [place] [address], [facility] HCO3 molar conc (Bld) 25 mmol/L Normal 23-27 [facility] Comment on above: Performed By: #### 5 0103 #### [facility] [address] [place] [address], [facility] IONIZED CALCIUM 1.23 mmol/L Normal 1.13-1.32 [facility] Comment on above: Performed By: #### 5 0103 #### [facility] [address] [place] [address], [facility] LPM 4.0 LPM Normal 0.5-20.0 [facility] Comment on above: Performed By: #### 5 0103 #### [facility] [address] [place] [address], [facility] Oxygen ppres (Bld) 85 mm[Hg] Normal 75-100 [facility] Comment on above: Performed By: #### 5 0103 #### [facility] [address] [place] [address], [facility] Oxygen saturation in Blood 96.2 % Normal 94.0-97.0 [facility] Comment on above: Performed By: #### 5 0103 #### [facility] [address] [place] [address], [facility] PCO2 48 mmHg High 35-45 [facility] Comment on above: Performed By: #### 3 #### [facility] [address] [place] [address], [facility] pH (Bld) 7.33 [pH] Low 7.35-7.45 [facility] Comment on above: Performed By: #### 102 #### [facility] [address] [place] [address], [facility] BASE EXCESS -2 mmol/L Normal -2-2 [facility] Comment on above: Performed By: #### 102 #### [facility] [address] [place] [address], [facility] MV Normal [facility] Comment on above: Performed By: #### 102 #### [facility] [address] [place] [address], [facility] FIO2 40 % Normal 21-100 [facility] Comment on above: Performed By: #### 102 #### [facility] [address] [place] [address], [facility] HCO3 molar conc (Bld) 24 mmol/L Normal 23-27 [facility] Comment on above: Performed By: #### 102 #### [facility] [address] [place] [address], [facility] IONIZED CALCIUM 1.18 mmol/L Normal 1.13-1.32 [facility] Comment on above: Performed By: #### 3 #### [facility] [address] [place] [address], [facility] MIN VOLUME 7.6 Normal [facility] Comment on above: Performed By: #### 3 #### [facility] [address] [place] [address], [place] MODALITY SPONT Normal [facility] Comment on above: Performed By: #### 102 #### [facility] [address] [place] [address], [facility] Oxygen ppres (Bld) 95 mm[Hg] Normal 75-100 [facility] Comment on above: Performed By: #### 5 0103 #### [facility] [address] [place] [address], [place] Oxygen saturation in Blood 95.2 % Normal 94.0-97.0 [facility] Comment on above: Performed By: #### 5 0103 #### [facility] [address] [place] [address], [place] PCO2 44 mmHg Normal 35-45 [facility] Comment on above: Performed By: #### 5 0103 #### [facility] [address] [place] [address], [place] PEEP 8.0 CMH20 Normal [facility] Comment on above: Performed By: #### 5 0103 #### [facility] [address] [facility] [place] [address], [facility] pH (Bld) 7.34 [pH] Low 7.35-7.45 [facility] Comment on above: Performed By: #### 5 0103 #### [facility] [address] [facility] [place] [address], [facility] PRESSURE SUPPORT 10 Normal [facility] Comment on above: Performed By: #### 5 0103 #### [facility] [address] [facility] [place] [address], [facility] BASIC METABOLIC PANELon 04-15 Calcium mass conc 7.8 mg/dL Low 8.6-10.3 [facility] Comment on above: Order Comment: No: D o not add to previous draw Performed By: #### 5 0103 #### [facility] [address] [place] [address], [place] Chloride molar conc 118 mmol/L High 98-107 [facility] Comment on above: Order Comment: No: D o not add to previous draw Performed By: #### 5 0103 #### [facility] [address] [place] [address], [place] CO2 molar conc 26 mmol/L Normal 21-31 [facility] Comment on above: Order Comment: No: D o not add to previous draw Performed By: #### 5 0103 #### [facility] [address] [place] [address], [place] Creatinine mass conc 0.92 mg/dL Normal 0.60-1.20 [facility] Comment on above: Order Comment: No: D o not add to previous draw Performed By: #### 5 0103 #### [facility] [address] [place] [address], [place] GFR/1.73 sq M predicted among blacks MDRD vol rate/area (S/P/Bld) mL/min/{1.73_m2} Normal >60 [facility] Comment on above: Order Comment: No: D o not add to previous draw Performed By: #### 5 0103 #### [facility] [address] [place] [address], [place] GFR/1.73 sq M predicted among non-blacks MDRD vol rate/area (S/P/Bld) mL/min/{1.73_m2} Normal >60 [facility] Comment on above: Order Comment: No: D o not add to previous draw Performed By: #### 5 0103 #### [facility] [address] [place] [address], [place] Glucose mass conc 101 mg/dL High 70-100 [facility] Comment on above: Order Comment: No: D o not add to previous draw Performed By: #### 5 0103 #### [facility] [address] [place] [address], [place] Potassium molar conc 4.1 mmol/L Normal 3.5-5.1 [facility] Comment on above: Order Comment: No: D o not add to previous draw Performed By: #### 5 0103 #### [facility] [address] [place] [address], [facility] Sodium molar conc 149 mmol/L High 136-145 [facility] Comment on above: Order Comment: No: D o not add to previous draw Performed By: #### 5 0103 #### [facility] [address] [place] [address], [facility] Urea nitrogen mass conc 19 mg/dL Normal 7-25 [facility] Comment on above: Order Comment: No: D o not add to previous draw Performed By: #### 5 0103 #### [facility] [address] [place] [address], [facility] CARDIAC MAGNESIUM BLOODon Magnesium mass conc 2.0 mg/dL Normal 1.9-2.7 [facility] Comment on above: Performed By: #### 5 0103 #### [facility] [address] [place] [address], [facility] CBC COMPLETE BLOOD COUNTon 0 04-29-2018 Erythrocyte distribution width Ratio (RBC) 15.6 % High 11.5-15.0 [facility] Comment on above: Order Comment: No: D o not add to previous draw Performed By: #### 5 0103 #### [facility] [address] [place] [address], [facility] Hematocrit Volume Fraction (Bld) 23.3 % Low 36.0-45.0 [facility] Comment on above: Order Comment: No: D o not add to previous draw Performed By: #### 5 0103 #### [facility] [address] [place] [address], [facility] Hemoglobin mass conc (Bld) 7.9 g/dL Low 12.0-15.0 [facility] Comment on above: Order Comment: No: D o not add to previous draw Performed By: #### 5 0103 #### [facility] [address] MCH Entitic mass (RBC) 27.4 pg Normal 27.0-33.0 [facility] Comment on above: Order Comment: No: D o not add to previous draw Performed By: #### 5 0103 #### [facility] [address] [place] [id number], [facility] MCHC mass conc (RBC) 33.9 g/dL Normal 32.0-35.0 [facility] Comment on above: Order Comment: No: D o not add to previous draw Performed By: #### 5 3 #### [facility] [address] [facility] [address], [facility] MCV Entitic volume (RBC) 80.9 fL Low 82.0-98.0 [facility] Comment on above: Order Comment: No: D o not add to previous draw Performed By: #### 5 3 #### [facility] [address] [facility]. [address] Nucleated RBC/100 WBC Ratio (Bld) 0 % Normal 0-0 [facility] Comment on above: Order Comment: No: D o not add to previous draw Performed By: #### 5 0103 #### [facility] [address] [place] [address], [facility] PLAT CNT 126 10*3/uL Low 150-400 [facility] Comment on above: Order Comment: No: D o not add to previous draw Performed By: #### 5 0103 #### [facility] [address] [facility] [address], [facility] RBC #/vol (Bld) 2.88 10*6/uL Low 3.80-5.00 [facility] Comment on above: Order Comment: No: D o not add to previous draw Performed By: #### 5 3 #### [facility] [address] [place] [address], [facility] WBC #/vol (Bld) 10.49 10*3/uL Normal 4.00-10.60 [facility] Comment on above: Order Comment: No: D o not add to previous draw Performed By: #### 5 0103 #### [facility] [address] [place] [address], [facility] COOXIMETRYon 04-29-2018 COHB 2 % Normal [facility] Comment on above: Performed By: #### 5 0103 #### [facility] [address] [place] [address], [facility] METHB 1 % Normal [facility] Comment on above: Performed By: #### 5 0103 #### [facility] [address] [place] [address], [facility] Oxygen saturation in Blood 58.9 % Low 60.0-80.0 [facility] Comment on above: Performed By: #### 5 0103 #### [facility] [address] [place] [address], [facility] THB 7.9 g/dL Low 12.0-15.0 [facility] Comment on above: Performed By: #### 5 0103 #### [facility] [address] [place] [address], [facility] HEMOGLOBINon 04-29-2018 Hemoglobin mass conc (Bld) 8.8 g/dL Low 12.0-15.0 [facility] Comment on above: Order Comment: No: D o not add to previous draw Performed By: #### 5 0103 #### [facility] [address] [place] [address], [facility] MAGNESIUM BLOODon 04-29-2018 Magnesium mass conc 2.3 mg/dL Normal 1.9-2.7 [facility] Comment on above: Performed By: #### 5 0103 #### [facility] [address] [place] [address], [facility] Operative Reporton 9 Operative Report MR#: [id number] I [facility] Pt. Name: Pato Corral Room #: [id number] Discharge Date: Birthdate: 1960 OPERATIVE REPORT DATE [...] consent was obtained. COMPLICATIONS: None. DRAINS: Four 19-Maldivian Jluis drains with 1 in the left [...] including radial arterial line, right internal jugular Houston-Jen catheter, and Strickland catheter were placed. General [...] Hemostasis was checked and was secured. Four 19-Maldivian Jluis drains were then brought into the field, 1 placed in the left pleural space, 1 in the right pleural space, and 2 in the mediastinum, and they were brought out through separate stab incisions and secured to the chest wall with silk sutures. The sternum was then closed with combination of interrupted and [id number] stainless steel wires. The soft tissues were [...] then checked and was secured, and a 10-Maldivian Jluis drain was then placed in the [...] Ruvalcaba MD Date Trans: 04/29/2018 05:36 A/emily [id number] cc: Gianfranco Lau D.O. [address] [facility] [address] Normal [facility] POC GLUCOSE LABon 04-29-2018 Glucose mass conc 129 mg/dL High 70-100 [facility] Comment on above: Performed By: #### 5 0103 #### [facility] [address] [place] [address], [place] Glucose mass conc 190 mg/dL High 70-100 [facility] Comment on above: Performed By: #### 5 0103 #### [facility] [address] [place] [address], [place] Glucose mass conc 107 mg/dL High 70-100 [facility] Comment on above: Performed By: #### 5 0103 #### [facility] [address] [place] [address], [place] Glucose mass conc 94 mg/dL Normal 70-100 [facility] Comment on above: Performed By: #### 3 #### [facility] [address] [place] [address], [place] Glucose mass conc 143 mg/dL High 70-100 [facility] Comment on above: Performed By: #### 0103 #### [facility] [address] [place] [address], [place] Glucose mass conc 136 mg/dL High 70-100 [facility] Comment on above: Performed By: #### 3 #### [facility] [address] [place] [address], [place] Glucose mass conc 182 mg/dL High 70-100 [facility] Comment on above: Performed By: #### 5 0103 #### [facility] [address] [place] [address], [place] Glucose mass conc 97 mg/dL Normal 70-100 [facility] Comment on above: Performed By: #### 5 0103 #### [facility] [address] [place] [address], [place] Glucose mass conc 110 mg/dL High 70-100 [facility] Comment on above: Performed By: #### 5 0103 #### [facility] [facility] [address] [place] [address], [place] Glucose mass conc 105 mg/dL High 70-100 [facility] Comment on above: Performed By: #### 5 0103 #### [facility] [address] [place] [address], [place] Glucose mass conc 122 mg/dL High 70-100 [facility] Comment on above: Performed By: #### 5 0103 #### [facility] [address] [place] [address], [place] Glucose mass conc 141 mg/dL High 70-100 [facility] Comment on above: Performed By: #### 5 0103 #### [facility] [address] [place] [address], [place] Glucose mass conc 165 mg/dL High 70-100 [facility] Comment on above: Performed By: #### 5 0103 #### [facility] [address] [place] [address], [place] Glucose mass conc 189 mg/dL High 70-100 [facility] Comment on above: Performed By: #### 5 0103 #### [facility] [address] [place] [address], [place] Glucose mass conc 173 mg/dL High 70-100 [facility] Comment on above: Performed By: #### 5 0103 #### [facility] [address] [place] [address], [place] PORTABLE CHEST 1 VIEWon 04-15 PORTABLE CHEST 1 VIEW [facility] Department of Radiology [address] [place] [id number] ======== Patient Name: PATO CORRAL : 1960 Sex: F Age: Race: White Pt. Location: [id number] Patient Status: I Ordered Date: 04/29/2018 5:00:00 [...] Stable positioning of bilateral nasopharynx. Right-sided IJ Houston-Jen with the tip in the main pulmonary [...] findings. Electronically signed by:Jerry Charles. Transcribed by: [email or web address], User Resident: [email or web address] Electronically Signed by: JERRY CHARLES @ 04/29/2018 03:04 PM I personally read this/these film(s) with this resident Normal [facility] Comment on above: Order Comment: No: D o not add to previous draw POTASSIUM BLOODon 04-29-2018 Potassium molar conc 3.9 mmol/L Normal 3.5-5.1 [facility] Comment on above: Order Comment: No: D o not add to previous draw Performed By: #### 5 0103 #### [facility] [address] [place] [address], [facility] PROTHROMBIN TIMEon 9 INR Coag RelTime (PPP) 1.30 {INR} High 0.91-1.16 [facility] Comment on above: Order Comment: [...] 1995;[id number]. Performed By: #### 5 0103 #### [facility] [address] Prothrombin time (PT) Coag time (PPP) 16.2 s High 12.3-14.8 [facility] Comment on above: Order Comment: No: D o not add to previous draw Result Comment: ALL RESULTS MUST BE INTERPRETED WITH RESPECT TO BLOOD DRAWING ARTIFACT OR DILUTION ERROR OF ANTICOAGULANT AT THE TIME OF SAMPLING. Performed By: #### 5 0103 #### [facility] [address] [place] [address], [place] ACTIVATED CLOTTING TIMEon ACTIVATED CLOTTING TIME 121 sec Normal 82-152 [facility] Comment on above: Performed By: #### 3 1018 #### [facility] [address] [place] [address], [place] ACTIVATED CLOTTING TIME 418 sec High 82-152 [facility] Comment on above: Performed By: #### 8 5499 #### [facility] [address] [place] [address], [place] ACTIVATED CLOTTING TIME 455 sec High 82-152 [facility] Comment on above: Performed By: #### 8 5499 #### [facility] [address] [place] [address], [place] ACTIVATED CLOTTING TIME 467 sec High 82-152 [facility] Comment on above: Performed By: #### 3 1488 #### [facility] [address] [place] [address], [place] ACTIVATED CLOTTING TIME 485 sec High 82-152 [facility] Comment on above: Performed By: #### 3 1488 #### [facility] [address] [place] [address], [place] ACTIVATED CLOTTING TIME 424 sec High 82-152 [facility] Comment on above: Performed By: #### 3 1488 #### [facility] [address] [place] [address], [place] ACTIVATED CLOTTING TIME 508 sec High 82-152 [facility] Comment on above: Performed By: #### 3 1488 #### [facility] [address] [place] [address], [place] ACTIVATED CLOTTING TIME 537 sec High 82-152 [facility] Comment on above: Performed By: #### 8 5123 #### [facility] [address] [place] [address], [facility] ACTIVATED CLOTTING TIME 418 sec High 82-152 [facility] Comment on above: Performed By: #### 8 5123 #### [facility] [address] [place] [address], [facility] ACTIVATED CLOTTING TIME 537 sec High 82-152 [facility] Comment on above: Performed By: #### 8 5123 #### [facility] [address] [place] [address], [facility] ACTIVATED CLOTTING TIME 412 sec High 82-152 [facility] Comment on above: Performed By: #### 8 5123 #### [facility] [address] [place] [address], [facility] ACTIVATED CLOTTING TIME 473 sec High 82-152 [facility] Comment on above: Performed By: #### 8 5123 #### [facility] [address] [place] [address], [facility] ACTIVATED CLOTTING TIME 437 sec High 82-152 [facility] Comment on above: Performed By: #### 8 5123 #### [facility] [address] [place] [address], [facility] ACTIVATED CLOTTING TIME 126 sec Normal 82-152 [facility] Comment on above: Performed By: #### 3 1488 #### [facility] [address] APTTon 04-28-2018 aPTT Coag time (Bld) 36.9 s High 25.0-35.0 [facility] Comment on above: Result Comment: [...] PURPOSE. Performed By: #### 5 0103 #### [facility] [address] [facility]. [address] ARTERIAL BLOOD GAS W/COOXon 04-28-2018 BASE EXCESS -6 mmol/L Low -2-2 [facility] Comment on above: Performed By: #### 3 1018 #### [facility] [address] [facility]. [address] COHB 2 % High 0-1 [facility] Comment on above: Performed By: #### 3 1018 #### [facility] [address] [facility]. [address] DELIVERY SYSTEMS VENT Normal [facility] Comment on above: Performed By: #### 3 1018 #### [facility] [address] [facility]. [address] FIO2 50 % Normal 21-100 [facility] Comment on above: Performed By: #### 3 1018 #### [facility] [address] [facility]. [address] HCO3 molar conc (Bld) 21 mmol/L Low 23-27 [facility] Comment on above: Performed By: #### 3 1018 #### [facility] [address] [facility]. [address] METHB 0.6 % Normal 0.0-1.5 [facility] Comment on above: Performed By: #### 3 1018 #### [facility] [address] [facility] [address], [facility] MIN VOLUME 7.0 Normal [facility] Comment on above: Performed By: #### 3 1018 #### [facility] [address] [facility] [address], [facility] MODALITY SIMV Normal [facility] Comment on above: Performed By: #### 3 1018 #### [facility] [address] [facility]. [address] Oxygen ppres (Bld) 82 mm[Hg] Normal 75-100 [facility] Comment on above: Performed By: #### 3 1018 #### [facility] [address] [place] [address], [facility] Oxygen saturation in Blood 93.6 % Low 94.0-97.0 [facility] Comment on above: Performed By: #### 3 1018 #### [facility] [address] [place] [address], [facility] PCO2 48 mmHg High 35-45 [facility] Comment on above: Performed By: #### 3 1018 #### [facility] [address] [place] [address], [facility] PEEP 8.0 CMH20 Normal [facility] Comment on above: Performed By: #### 3 1018 #### [facility] [address] [place] [address], [facility] pH (Bld) 7.25 [pH] Low 7.35-7.45 [facility] Comment on above: Performed By: #### 3 1018 #### [facility] [address] [place] [address], [facility] PRESSURE SUPPORT 5 Normal [facility] Comment on above: Performed By: #### 3 1018 #### [facility] [address] [place] [address], [facility] THB 12.0 g/dL Normal 12.0-15.0 [facility] Comment on above: Performed By: #### 3 1018 #### [facility] [address] [place] [address], [facility] TIDAL VOLUME (VT) CC 500 Normal [facility] Comment on above: Performed By: #### 3 1018 #### [facility] [address] [place] [address], [facility] ARTERIAL BLOOD GAS WITH ICAo n 04-28-2018 BASE EXCESS -2 mmol/L Normal -2-2 [facility] Comment on above: Performed By: #### 102 #### [facility] [address] [place] [address], [facility] DELIVERY SYSTEMS MV Normal [facility] Comment on above: Performed By: #### 3 #### [facility] [address] [place] [address], [place] FIO2 40 % Normal 21-100 [facility] Comment on above: Performed By: #### 102 #### [facility] [address] [place] [address], [place] HCO3 molar conc (Bld) 24 mmol/L Normal 23-27 [facility] Comment on above: Performed By: #### 102 #### [facility] [address] [place] [address], [place] IONIZED CALCIUM 1.14 mmol/L Normal 1.13-1.32 [facility] Comment on above: Performed By: #### 102 #### [facility] [address] [place] [address], [place] MIN VOLUME 7.1 Normal [facility] Comment on above: Performed By: #### 102 #### [facility] [address] [place] [address], [place] MODALITY SIMV Normal [facility] Comment on above: Performed By: #### 3 #### [facility] [address] [place] [address], [place] Oxygen ppres (Bld) 87 mm[Hg] Normal 75-100 [facility] Comment on above: Performed By: #### 102 #### [facility] [address] [place] [address], [place] Oxygen saturation in Blood 94.8 % Normal 94.0-97.0 [facility] Comment on above: Performed By: #### 5 0103 #### [facility] [address] [place] [address], [facility] PCO2 44 mmHg Normal 35-45 [facility] Comment on above: Performed By: #### 5 102 #### [facility] [address] [place] [address], [facility] PEEP 8.0 CMH20 Normal [facility] Comment on above: Performed By: #### 5 102 #### [facility] [address] [place] [address], [facility] PF RATIO 218 mmHg Normal 50-400 [facility] Comment on above: Performed By: #### 5 102 #### [facility] [address] [facility] [place] [address], [facility] pH (Bld) 7.34 [pH] Low 7.35-7.45 [facility] Comment on above: Performed By: #### 102 #### [facility] [address] [facility] [place] [address], [facility] PRESSURE SUPPORT 5 Normal [facility] Comment on above: Performed By: #### 5 102 #### [facility] [address] [facility] [place] [address], [facility] TIDAL VOLUME (VT) CC 500 Normal [facility] Comment on above: Performed By: #### 5 102 #### [facility] [address] [facility] [place] [address], [facility] BASE EXCESS -4 mmol/L Low -2-2 [facility] Comment on above: Order Comment: No: D o not add to previous draw Performed By: #### 5 3 #### [facility] [address] [place] [address], [facility] DELIVERY SYSTEMS MV Normal [facility] Comment on above: Order Comment: No: D o not add to previous draw Performed By: #### 5 102 #### [facility] [address] [place] [address], [facility] FIO2 50 % Normal 21-100 [facility] Comment on above: Order Comment: No: D o not add to previous draw Performed By: #### 5 0103 #### [facility] [address] [place] [address], [facility] HCO3 molar conc (Bld) 22 mmol/L Low 23-27 [facility] Comment on above: Order Comment: No: D o not add to previous draw Performed By: #### 5 0103 #### [facility] [address] [place] [address], [facility] IONIZED CALCIUM 1.15 mmol/L Normal 1.13-1.32 [facility] Comment on above: Order Comment: No: D o not add to previous draw Performed By: #### 5 0103 #### [facility] [address] [place] [address], [facility] MIN VOLUME 7.1 Normal [facility] Comment on above: Order Comment: No: D o not add to previous draw Performed By: #### 5 3 #### [facility] [address] [place] [address], [facility] MODALITY SIMV Normal [facility] Comment on above: Order Comment: No: D o not add to previous draw Performed By: #### 5 0103 #### [facility] [address] [place] [address], [facility] Oxygen ppres (Bld) 107 mm[Hg] Critically high 75-100 [facility] Comment on above: Order Comment: No: D o not add to previous draw Performed By: #### 5 3 #### [facility] [address] [place] [address], [facility] Oxygen saturation in Blood 94.9 % Normal 94.0-97.0 [facility] Comment on above: Order Comment: No: D o not add to previous draw Performed By: #### 5 0103 #### [facility] [address] [place] [address], [facility] PCO2 42 mmHg Normal 35-45 [facility] Comment on above: Order Comment: No: D o not add to previous draw Performed By: #### 5 0103 #### [facility] [address] [place] [address], [facility] PEEP 8.0 CMH20 Normal [facility] Comment on above: Order Comment: No: D o not add to previous draw Performed By: #### 5 0103 #### [facility] [address] [place] [address], [facility] pH (Bld) 7.33 [pH] Low 7.35-7.45 [facility] Comment on above: Order Comment: No: D o not add to previous draw Performed By: #### 5 0103 #### [facility] [address] [place] [address], [facility] PRESSURE SUPPORT 5 Normal [facility] Comment on above: Order Comment: No: D o not add to previous draw Performed By: #### 5 0103 #### [facility] [address] [place] [address], [facility] TIDAL VOLUME (VT) CC 500 Normal [facility] Comment on above: Order Comment: No: D o not add to previous draw Performed By: #### 5 0103 #### [facility] [address] [place] [address], [facility] BASIC METABOLIC PANELon 04-15 Calcium mass conc 8.0 mg/dL Low 8.6-10.3 [facility] Comment on above: Order Comment: No: D o not add to previous draw Performed By: #### 5 0103 #### [facility] [address] [place] [address], [facility] Creatinine mass conc 0.91 mg/dL Normal 0.60-1.20 [facility] Comment on above: Order Comment: No: D o not add to previous draw Performed By: #### 5 0103 #### [facility] [address] [place] [address], [place] Urea nitrogen mass conc 16 mg/dL Normal 7-25 [facility] Comment on above: Order Comment: No: D o not add to previous draw Performed By: #### 5 0103 #### [facility] [address] [place] [address], [place] Potassium molar conc 4.6 mmol/L Normal 3.5-4.9 [facility] Comment on above: Order Comment: No: D o not add to previous draw Performed By: #### 5 0103 #### [facility] [address] [place] [address], [place] Performed By: #### 3 1018 #### [facility] [address] [place] [address], [place] Performed By: #### 8 5499 #### [facility] [address] [place] [address], [place] Calcium mass conc 6.1 mg/dL Low 8.6-10.3 [facility] Comment on above: Order Comment: No: D o not add to previous draw Performed By: #### 3 1488 #### [facility] [address] [place] [address], [place] Chloride molar conc 114 mmol/L High 98-107 [facility] Comment on above: Order Comment: No: D o not add to previous draw Performed By: #### 5 0103 #### [facility] [address] [place] [address], [place] Performed By: #### 3 1488 #### [facility] [address] [place] [address], [place] CO2 molar conc 22 mmol/L Normal 21-31 [facility] Comment on above: Order Comment: No: D o not add to previous draw Performed By: #### 5 0103 #### [facility] [address] [place] [address], [place] Performed By: #### 3 1488 #### [facility] [address] [place] [address], [place] Creatinine mass conc 0.90 mg/dL Normal 0.60-1.20 [facility] Comment on above: Order Comment: No: D o not add to previous draw Performed By: #### 3 1488 #### [facility] [address] [place] [address], [place] GFR/1.73 sq M predicted among blacks MDRD vol rate/area (S/P/Bld) mL/min/{1.73_m2} Normal >60 [facility] Comment on above: Order Comment: No: D o not add to previous draw Performed By: #### 5 0103 #### [facility] [address] [place] [address], [place] Performed By: #### 3 1488 #### [facility] [address] [place] [address], [place] GFR/1.73 sq M predicted among non-blacks MDRD vol rate/area (S/P/Bld) mL/min/{1.73_m2} Normal >60 [facility] Comment on above: Order Comment: No: D o not add to previous draw Performed By: #### 5 0103 #### [facility] [address] [place] [address], [place] Performed By: #### 3 1488 #### [facility] [address] [place] [address], [place] Glucose mass conc 169 mg/dL High 70-100 [facility] Comment on above: Order Comment: No: D o not add to previous draw Performed By: #### 3 1488 #### [facility] [address] [place] [address], [place] Potassium molar conc 5.1 mmol/L Normal 3.5-5.1 [facility] Comment on above: Order Comment: No: D o not add to previous draw Performed By: #### 3 1488 #### [facility] [address] [place] [address], [place] Sodium molar conc 140 mmol/L Normal 136-145 [facility] Comment on above: Order Comment: No: D o not add to previous draw Performed By: #### 3 1488 #### [facility] [address] [place] [address], [place] Urea nitrogen mass conc 15 mg/dL Normal 7-25 [facility] Comment on above: Order Comment: No: D o not add to previous draw Performed By: #### 3 1488 #### [facility] [address] [place] [address], [place] Sodium molar conc 141 mmol/L Normal 138-146 [facility] Comment on above: Order Comment: No: D o not add to previous draw Performed By: #### 5 0103 #### [facility] [address] [place] [address], [place] Performed By: #### 8 5499 #### [facility] [address] [place] [address], [place] Glucose mass conc 177 mg/dL High 70-105 [facility] Comment on above: Order Comment: No: D o not add to previous draw Performed By: #### 5 0103 #### [facility] [address] [place] [address], [place] Performed By: #### 8 5499 #### [facility] [address] [place] [address], [place] CBC COMPLETE BLOOD COUNTon 0 2- Erythrocyte distribution width Ratio (RBC) 15.5 % High 11.5-15.0 [facility] Comment on above: Order Comment: on ar rival to CVUNo: Do not add to previous draw Performed By: #### 3 1018 #### [facility] [address] [place] [address], [facility] Hematocrit Volume Fraction (Bld) 37.3 % Normal 36.0-45.0 [facility] Comment on above: Order Comment: on ar rival to CVUNo: Do not add to previous draw Performed By: #### 3 1018 #### [facility] [address] [place] [address], [facility] Hemoglobin mass conc (Bld) 12.3 g/dL Normal 12.0-15.0 [facility] Comment on above: Order Comment: on ar rival to CVUNo: Do not add to previous draw Performed By: #### 3 1018 #### [facility] [address] [place] [address], [facility] MCH Entitic mass (RBC) 27.0 pg Normal 27.0-33.0 [facility] Comment on above: Order Comment: on ar rival to CVUNo: Do not add to previous draw Performed By: #### 3 1018 #### [facility] [address] [place] [address], [facility] MCHC mass conc (RBC) 33.0 g/dL Normal 32.0-35.0 [facility] Comment on above: Order Comment: on ar rival to CVUNo: Do not add to previous draw Performed By: #### 3 1018 #### [facility] [address] [place] [id number], [facility] MCV Entitic volume (RBC) 82.0 fL Normal 82.0-98.0 [facility] Comment on above: Order Comment: on ar rival to CVUNo: Do not add to previous draw Performed By: #### 3 1018 #### [facility] [address] [place] [id number], [facility] PLAT CNT 137 10*3/uL Low 150-400 [facility] Comment on above: Order Comment: on ar rival to CVUNo: Do not add to previous draw Performed By: #### 3 1018 #### [facility] [address] [place] [address], [facility] RBC #/vol (Bld) 4.55 10*6/uL Normal 3.80-5.00 [facility] Comment on above: Order Comment: on ar rival to CVUNo: Do not add to previous draw Performed By: #### 3 1018 #### [facility] [address] [place] [address], [facility] WBC #/vol (Bld) 16.06 10*3/uL High 4.00-10.60 [facility] Comment on above: Order Comment: on ar rival to CVUNo: Do not add to previous draw Performed By: #### 3 1018 #### [facility] [address] [place] [address], [facility] Erythrocyte distribution width Ratio (RBC) 15.8 % High 11.5-15.0 [facility] Comment on above: Performed By: #### 3 1018 #### [facility] [address] [place] [address], [facility] Hematocrit Volume Fraction (Bld) 26.4 % Low 36.0-45.0 [facility] Comment on above: Performed By: #### 3 1018 #### [facility] [address] [place] [address], [facility] Hemoglobin mass conc (Bld) 8.9 g/dL Low 12.0-15.0 [facility] Comment on above: Performed By: #### 3 1018 #### [facility] [address] [place] [address], [facility] MCH Entitic mass (RBC) 27.7 pg Normal 27.0-33.0 [facility] Comment on above: Performed By: #### 3 1018 #### [facility] [address] [place] [address], [facility] MCHC mass conc (RBC) 33.7 g/dL Normal 32.0-35.0 [facility] Comment on above: Performed By: #### 3 1018 #### [facility] [address] [place] [address], [facility] MCV Entitic volume (RBC) 82.2 fL Normal 82.0-98.0 [facility] Comment on above: Performed By: #### 3 1018 #### [facility] [address] [place] [address], [facility] Nucleated RBC/100 WBC Ratio (Bld) 0 % Normal 0-0 [facility] Comment on above: Order Comment: on ar rival to CVUNo: Do not add to previous draw Performed By: #### 3 1018 #### [facility] [address] [place] [address], [facility] PLAT CNT 107 10*3/uL Low 150-400 [facility] Comment on above: Performed By: #### 3 1018 #### [facility] [address] [place] [address], [facility] RBC #/vol (Bld) 3.21 10*6/uL Low 3.80-5.00 [facility] Comment on above: Performed By: #### 3 1018 #### [facility] [address] [place] [id number], [facility] WBC #/vol (Bld) 12.82 10*3/uL High 4.00-10.60 [facility] Comment on above: Performed By: #### 3 1018 #### [facility] [address] [place] [id number], [facility] MAGNESIUM BLOODon 04-28-2018 Magnesium mass conc 2.8 mg/dL High 1.9-2.7 [facility] Comment on above: Order Comment: No: D o not add to previous draw Performed By: #### 5 0103 #### [facility] [address] [place] [id number], [facility] Magnesium mass conc 3.1 mg/dL High 1.9-2.7 [facility] Comment on above: Performed By: #### 3 1488 #### [facility] [address] [place] [address], [facility] PERFUSION BLOOD PANELon 04-15 BASE EXCESS -6.0 mmol/L Low -2.0-3.0 [facility] Comment on above: Performed By: #### 3 1018 #### [facility] [address] [place] [address], [facility] Glucose mass conc 141 mg/dL High 70-105 [facility] Comment on above: Performed By: #### 3 1018 #### [facility] [address] [place], [place] [id number] [place] [address] Hematocrit Volume Fraction (Bld) 31 % Low 38-51 [facility] Comment on above: Performed By: #### 3 1018 #### [facility] [address] [place] [address], [facility] Hemoglobin mass conc (Bld) 10.5 g/dL Low 12.0-17.0 [facility] Comment on above: Performed By: #### 3 1018 #### [facility] [address] [place] [address], [facility] IONIZED CALCIUM 1.10 mmol/L Low 1.12-1.32 [facility] Comment on above: Performed By: #### 3 1018 #### [facility] [address] [place] [address], [facility] Oxygen ppres (Bld) 194.0 mm[Hg] High 80.0-105.0 [facility] Comment on above: Performed By: #### 3 1018 #### [facility] [address] [place] [address], [facility] PCO2 38.8 mmHg Normal 35.0-45.0 [facility] Comment on above: Performed By: #### 3 1018 #### [facility] [address] [place] [address], [facility] pH (Bld) 7.32 [pH] Low 7.35-7.45 [facility] Comment on above: Performed By: #### 3 1018 #### [facility] [address] [place] [address], [facility] Potassium molar conc 4.3 mmol/L Normal 3.5-4.9 [facility] Comment on above: Performed By: #### 3 1018 #### [facility] [address] [place] [address], [facility] Sodium molar conc 144 mmol/L Normal 138-146 [facility] Comment on above: Performed By: #### 3 1018 #### [facility] [address] [place] [address], [facility] BASE EXCESS -15.0 mmol/L Low -2.0-3.0 [facility] Comment on above: Performed By: #### 3 1018 #### [facility] [address] [place] [address], [facility] Glucose mass conc 114 mg/dL High 70-105 [facility] Comment on above: Performed By: #### 3 1018 #### [facility] [address] [place] [address], [facility] Hematocrit Volume Fraction (Bld) 19 % Low 38-51 [facility] Comment on above: Performed By: #### 3 1018 #### [facility] [address] [place] [address], [facility] Hemoglobin mass conc (Bld) 6.5 g/dL Low 12.0-17.0 [facility] Comment on above: Performed By: #### 3 1018 #### [facility] [address] [place] [address], [facility] IONIZED CALCIUM 0.74 mmol/L Critically low 1.12-1.32 [facility] Comment on above: Performed By: #### 3 1018 #### [facility] [address] Oxygen ppres (Bld) 35.0 mm[Hg] Normal [facility] Comment on above: Performed By: #### 3 1018 #### [facility] [address] [facility]. [address] PCO2 23.7 mmHg Low 41.0-51.0 [facility] Comment on above: Performed By: #### 3 1018 #### [facility] [address] pH (Bld) 7.27 [pH] Low 7.31-7.41 [facility] Comment on above: Performed By: #### 3 1018 #### [facility] [address] Potassium molar conc 2.3 mmol/L Critically low 3.5-4.9 [facility] Comment on above: Performed By: #### 3 1018 #### [facility] [address] Sodium molar conc 151 mmol/L High 138-146 [facility] Comment on above: Performed By: #### 3 1018 #### [facility] [address] BASE EXCESS -5.0 mmol/L Low -2.0-3.0 [facility] Comment on above: Performed By: #### 3 1018 #### [facility] [address] Glucose mass conc 150 mg/dL High 70-105 [facility] Comment on above: Performed By: #### 3 1018 #### [facility] [address] Hematocrit Volume Fraction (Bld) 27 % Low 38-51 [facility] Comment on above: Performed By: #### 3 1018 #### [facility] [address] [facility] [place] [address], [facility] Hemoglobin mass conc (Bld) 9.2 g/dL Low 12.0-17.0 [facility] Comment on above: Performed By: #### 3 1018 #### [facility] [address] [facility] [address], [facility] IONIZED CALCIUM 1.17 mmol/L Normal 1.12-1.32 [facility] Comment on above: Performed By: #### 3 1018 #### [facility] [address] [facility] [address], [facility] Oxygen ppres (Bld) 25.0 mm[Hg] Normal [facility] Comment on above: Performed By: #### 3 1018 #### [facility] [address] [facility]. [address] PCO2 48.3 mmHg Normal 41.0-51.0 [facility] Comment on above: Performed By: #### 3 1018 #### [facility] [address] [facility] [place] [place] [address], [facility] pH (Bld) 7.26 [pH] Low 7.31-7.41 [facility] Comment on above: Performed By: #### 3 1018 #### [facility] [address] [facility] [place] [address], [facility] Sodium molar conc 143 mmol/L Normal 138-146 [facility] Comment on above: Performed By: #### 3 1018 #### [facility] [address] [facility] [place] [address], [facility] BASE EXCESS -3.0 mmol/L Low -2.0-3.0 [facility] Comment on above: Performed By: #### 8 5499 #### [facility] [address] [place] [address], [facility] Glucose mass conc 151 mg/dL High 70-105 [facility] Comment on above: Performed By: #### 8 5499 #### [facility] [address] [place] [address], [place] Hematocrit Volume Fraction (Bld) 22 % Low 38-51 [facility] Comment on above: Performed By: #### 8 5499 #### [facility] [address] [place] [address], [facility] Hemoglobin mass conc (Bld) 7.5 g/dL Low 12.0-17.0 [facility] Comment on above: Performed By: #### 8 5499 #### [facility] [address] [place] [address], [facility] IONIZED CALCIUM 1.22 mmol/L Normal 1.12-1.32 [facility] Comment on above: Performed By: #### 8 5499 #### [facility] [address] [place] [address], [facility] Oxygen ppres (Bld) 252.0 mm[Hg] High 80.0-105.0 [facility] Comment on above: Performed By: #### 8 5499 #### [facility] [address] [place] [address], [facility] PCO2 41.0 mmHg Normal 35.0-45.0 [facility] Comment on above: Performed By: #### 8 5499 #### [facility] [address] [place] [address], [place] pH (Bld) 7.35 [pH] Normal 7.35-7.45 [facility] Comment on above: Performed By: #### 8 5499 #### [facility] [address] [place] [address], [place] Potassium molar conc 4.5 mmol/L Normal 3.5-4.9 [facility] Comment on above: Performed By: #### 8 5499 #### [facility] [address] [place] [address], [facility] Sodium molar conc 143 mmol/L Normal 138-146 [facility] Comment on above: Performed By: #### 8 5499 #### [facility] [address] [place] [address], [facility] BASE EXCESS -4.0 mmol/L Low -2.0-3.0 [facility] Comment on above: Performed By: #### 3 1018 #### [facility] [address] [place] [address], [facility] Glucose mass conc 144 mg/dL High 70-105 [facility] Comment on above: Performed By: #### 3 1018 #### [facility] [address] Hematocrit Volume Fraction (Bld) 21 % Low 38-51 [facility] Comment on above: Performed By: #### 3 1018 #### [facility] [address] [place] [address], [facility] Hemoglobin mass conc (Bld) 7.1 g/dL Low 12.0-17.0 [facility] Comment on above: Performed By: #### 3 1018 #### [facility] [address] [place] [address], [facility] IONIZED CALCIUM 1.24 mmol/L Normal 1.12-1.32 [facility] Comment on above: Performed By: #### 3 1018 #### [facility] [address] [place] [address], [facility] Oxygen ppres (Bld) 25.0 mm[Hg] Normal [facility] Comment on above: Performed By: #### 3 1018 #### [facility] [address] [place] [address], [facility] PCO2 49.9 mmHg Normal 41.0-51.0 [facility] Comment on above: Performed By: #### 3 1018 #### [facility] [address] [place] [address], [facility] pH (Bld) 7.26 [pH] Low 7.31-7.41 [facility] Comment on above: Performed By: #### 3 1018 #### [facility] [address] [place] [address], [facility] Potassium molar conc 4.8 mmol/L Normal 3.5-4.9 [facility] Comment on above: Performed By: #### 3 1018 #### [facility] [address] [place] [address], [facility] Sodium molar conc 142 mmol/L Normal 138-146 [facility] Comment on above: Performed By: #### 3 1018 #### [facility] [address] BASE EXCESS -1.0 mmol/L Normal -2.0-3.0 [facility] Comment on above: Performed By: #### 3 1018 #### [facility] [address] [place] [address], [facility] Glucose mass conc 159 mg/dL High 70-105 [facility] Comment on above: Performed By: #### 3 1018 #### [facility] [address] Hematocrit Volume Fraction (Bld) 22 % Low 38-51 [facility] Comment on above: Performed By: #### 3 1018 #### [facility] [address] [facility] [address], [facility] Hemoglobin mass conc (Bld) 7.5 g/dL Low 12.0-17.0 [facility] Comment on above: Performed By: #### 3 1018 #### [facility] [address] [place] [address], [facility] IONIZED CALCIUM 1.46 mmol/L High 1.12-1.32 [facility] Comment on above: Performed By: #### 3 1018 #### [facility] [address] [place] [address], [facility] Oxygen ppres (Bld) 419.0 mm[Hg] High 80.0-105.0 [facility] Comment on above: Performed By: #### 3 1018 #### [facility] [address] [place] [address], [facility] PCO2 45.5 mmHg High 35.0-45.0 [facility] Comment on above: Performed By: #### 3 1018 #### [facility] [address] [place] [address], [facility] pH (Bld) 7.34 [pH] Low 7.35-7.45 [facility] Comment on above: Performed By: #### 3 1018 #### [facility] [address] [place] [address], [facility] Potassium molar conc 4.8 mmol/L Normal 3.5-4.9 [facility] Comment on above: Performed By: #### 3 1018 #### [facility] [address] [place] [address], [facility] Sodium molar conc 139 mmol/L Normal 138-146 [facility] Comment on above: Performed By: #### 3 1018 #### [facility] [address] [place] [address], [facility] BASE EXCESS 1.0 mmol/L Normal -2.0-3.0 [facility] Comment on above: Performed By: #### 8 5499 #### [facility] [address] [place] [address], [facility] Glucose mass conc 148 mg/dL High 70-105 [facility] Comment on above: Performed By: #### 8 5499 #### [facility] [address] [place] [address], [facility] Hematocrit Volume Fraction (Bld) 20 % Low 38-51 [facility] Comment on above: Performed By: #### 8 5499 #### [facility] [address] [place] [address], [facility] Hemoglobin mass conc (Bld) 6.8 g/dL Low 12.0-17.0 [facility] Comment on above: Performed By: #### 8 5499 #### [facility] [address] [place] [address], [facility] IONIZED CALCIUM 0.92 mmol/L Low 1.12-1.32 [facility] Comment on above: Performed By: #### 8 5499 #### [facility] [address] [place] [address], [facility] Oxygen ppres (Bld) 451.0 mm[Hg] High 80.0-105.0 [facility] Comment on above: Performed By: #### 8 5499 #### [facility] [address] [place] [address], [facility] PCO2 40.7 mmHg Normal 35.0-45.0 [facility] Comment on above: Performed By: #### 8 5499 #### [facility] [address] [place] [address], [facility] pH (Bld) 7.41 [pH] Normal 7.35-7.45 [facility] Comment on above: Performed By: #### 8 5499 #### [facility] [address] [place] [address], [facility] Potassium molar conc 4.9 mmol/L Normal 3.5-4.9 [facility] Comment on above: Performed By: #### 8 5499 #### [facility] [address] [place] [address], [facility] Sodium molar conc 140 mmol/L Normal 138-146 [facility] Comment on above: Performed By: #### 8 5499 #### [facility] [address] [facility]. [address] BASE EXCESS -3.0 mmol/L Low -2.0-3.0 [facility] Comment on above: Performed By: #### 8 5499 #### [facility] [address] [facility]. [address] Glucose mass conc 174 mg/dL High 70-105 [facility] Comment on above: Performed By: #### 8 5499 #### [facility] [address] Hematocrit Volume Fraction (Bld) 23 % Low 38-51 [facility] Comment on above: Performed By: #### 8 5499 #### [facility] [address] [facility]. [address] Hemoglobin mass conc (Bld) 7.8 g/dL Low 12.0-17.0 [facility] Comment on above: Performed By: #### 8 5499 #### [facility] [address] IONIZED CALCIUM 0.99 mmol/L Low 1.12-1.32 [facility] Comment on above: Performed By: #### 8 5499 #### [facility] [address] [facility]. [address] Oxygen ppres (Bld) 533.0 mm[Hg] High 80.0-105.0 [facility] Comment on above: Performed By: #### 8 5499 #### [facility] [address] PCO2 48.6 mmHg High 35.0-45.0 [facility] Comment on above: Performed By: #### 8 5499 #### [facility] [address] [facility] [address] pH (Bld) 7.29 [pH] Low 7.35-7.45 [facility] Comment on above: Performed By: #### 8 5499 #### [facility] [address] [facility] [address], [facility] Sodium molar conc 140 mmol/L Normal 138-146 [facility] Comment on above: Performed By: #### 8 5499 #### [facility] [address] BASE EXCESS -1.0 mmol/L Normal -2.0-3.0 [facility] Comment on above: Performed By: #### 8 5499 #### [facility] [address] Glucose mass conc 144 mg/dL High 70-105 [facility] Comment on above: Performed By: #### 8 5499 #### [facility] [address] Hematocrit Volume Fraction (Bld) 20 % Low 38-51 [facility] Comment on above: Performed By: #### 8 5499 #### [facility] [address] [place] [address], [facility] Hemoglobin mass conc (Bld) 6.8 g/dL Low 12.0-17.0 [facility] Comment on above: Performed By: #### 8 5499 #### [facility] [address] [place] [address], [facility] IONIZED CALCIUM 0.97 mmol/L Low 1.12-1.32 [facility] Comment on above: Performed By: #### 8 5499 #### [facility] [address] [place] [address], [facility] Oxygen ppres (Bld) 474.0 mm[Hg] High 80.0-105.0 [facility] Comment on above: Performed By: #### 8 5499 #### [facility] [address] [place] [address], [facility] PCO2 39.4 mmHg Normal 35.0-45.0 [facility] Comment on above: Performed By: #### 8 5499 #### [facility] [address] [place] [address], [facility] pH (Bld) 7.39 [pH] Normal 7.35-7.45 [facility] Comment on above: Performed By: #### 8 5499 #### [facility] [address] [place] [address], [facility] Potassium molar conc 5.0 mmol/L High 3.5-4.9 [facility] Comment on above: Performed By: #### 8 5499 #### [facility] [address] [place] [address], [facility] Sodium molar conc 138 mmol/L Normal 138-146 [facility] Comment on above: Performed By: #### 8 5499 #### [facility] [address] [place] [address], [facility] BASE EXCESS -1.0 mmol/L Normal -2.0-3.0 [facility] Comment on above: Performed By: #### 8 5499 #### [facility] [address] [place] [address], [facility] Glucose mass conc 151 mg/dL High 70-105 [facility] Comment on above: Performed By: #### 8 5499 #### [facility] [address] [place] [address], [place] Hematocrit Volume Fraction (Bld) 20 % Low 38-51 [facility] Comment on above: Performed By: #### 8 5499 #### [facility] [address] [place] [address], [place] Hemoglobin mass conc (Bld) 6.8 g/dL Low 12.0-17.0 [facility] Comment on above: Performed By: #### 8 5499 #### [facility] [address] [facility] IONIZED CALCIUM 1.05 mmol/L Low 1.12-1.32 [facility] Comment on above: Performed By: #### 8 5499 #### [facility] [address] [facility]. [address] Oxygen ppres (Bld) 480.0 mm[Hg] High 80.0-105.0 [facility] Comment on above: Performed By: #### 8 5499 #### [facility] [address] [facility]. [address] PCO2 43.9 mmHg Normal 35.0-45.0 [facility] Comment on above: Performed By: #### 8 5499 #### [facility] [address] [facility]. [address] pH (Bld) 7.36 [pH] Normal 7.35-7.45 [facility] Comment on above: Performed By: #### 8 5499 #### [facility] [address] [facility]. [address] Potassium molar conc 3.7 mmol/L Normal 3.5-4.9 [facility] Comment on above: Performed By: #### 8 5499 #### [facility] [address] [facility]. [address] BASE EXCESS -2.0 mmol/L Normal -2.0-3.0 [facility] Comment on above: Performed By: #### 8 5499 #### [facility] [address] [facility] [address], [facility] Glucose mass conc 156 mg/dL High 70-105 [facility] Comment on above: Performed By: #### 8 5499 #### [facility] [address] [facility] [place] [address], [facility] Hematocrit Volume Fraction (Bld) 17 % Low 38-51 [facility] Comment on above: Performed By: #### 8 5499 #### [facility] [address] [facility] [place] [address], [facility] Hemoglobin mass conc (Bld) 5.8 g/dL Critically low 12.0-17.0 [facility] Comment on above: Performed By: #### 8 5499 #### [facility] [address] [facility] [place] [address], [facility] IONIZED CALCIUM 0.95 mmol/L Low 1.12-1.32 [facility] Comment on above: Performed By: #### 8 5499 #### [facility] [address] [facility] [place] [place] [address], [facility] Oxygen ppres (Bld) 482.0 mm[Hg] High 80.0-105.0 The [facility] Comment on above: Performed By: #### 8 5499 #### [facility] [address] [facility] [place] [address], [facility] PCO2 42.4 mmHg Normal 35.0-45.0 [facility] Comment on above: Performed By: #### 8 5499 #### [facility] [address] [facility] [place] [place] [address], [facility] pH (Bld) 7.35 [pH] Normal 7.35-7.45 [facility] Comment on above: Performed By: #### 8 5499 #### [facility] [address] [facility] [place] [id number], [facility] Potassium molar conc 4.5 mmol/L Normal 3.5-4.9 [facility] Comment on above: Performed By: #### 8 5499 #### [facility] [address] [place] [address], [facility] Sodium molar conc 139 mmol/L Normal 138-146 [facility] Comment on above: Performed By: #### 8 5499 #### [facility] [address] [place] [address], [facility] BASE EXCESS -6.0 mmol/L Low -2.0-3.0 [facility] Comment on above: Performed By: #### 8 5499 #### [facility] [address] [place] [address], [facility] Glucose mass conc 181 mg/dL High 70-105 [facility] Comment on above: Performed By: #### 8 5499 #### [facility] [address] [place] [address], [facility] Hematocrit Volume Fraction (Bld) 22 % Low 38-51 [facility] Comment on above: Performed By: #### 8 5499 #### [facility] [address] [place] [address], [facility] Hemoglobin mass conc (Bld) 7.5 g/dL Low 12.0-17.0 [facility] Comment on above: Performed By: #### 8 5499 #### [facility] [address] [place] [address], [facility] IONIZED CALCIUM 1.14 mmol/L Normal 1.12-1.32 [facility] Comment on above: Performed By: #### 8 5499 #### [facility] [address] [place] [address], [facility] Oxygen ppres (Bld) 31.0 mm[Hg] Normal [facility] Comment on above: Performed By: #### 8 5499 #### [facility] [address] [place] [address], [facility] PCO2 49.4 mmHg Normal 41.0-51.0 [facility] Comment on above: Performed By: #### 8 5499 #### [facility] [address] [place] [address], [facility] pH (Bld) 7.24 [pH] Low 7.31-7.41 [facility] Comment on above: Performed By: #### 8 5499 #### [facility] [address] [place] [address], [facility] Sodium molar conc 142 mmol/L Normal 138-146 [facility] Comment on above: Performed By: #### 8 5499 #### [facility] [address] BASE EXCESS -5.0 mmol/L Low -2.0-3.0 [facility] Comment on above: Performed By: #### 8 5499 #### [facility] [address] [facility] [address] Hematocrit Volume Fraction (Bld) 23 % Low 38-51 [facility] Comment on above: Performed By: #### 8 5499 #### [facility] [address] Hemoglobin mass conc (Bld) 7.8 g/dL Low 12.0-17.0 [facility] Comment on above: Performed By: #### 8 5499 #### [facility] [address] [facility] [address] IONIZED CALCIUM 1.14 mmol/L Normal 1.12-1.32 [facility] Comment on above: Performed By: #### 8 5499 #### [facility] [address] Oxygen ppres (Bld) 326.0 mm[Hg] High 80.0-105.0 [facility] Comment on above: Performed By: #### 8 5499 #### [facility] [address] [place] [address], [facility] PCO2 39.6 mmHg Normal 35.0-45.0 [facility] Comment on above: Performed By: #### 8 5499 #### [facility] [address] [place] [address], [facility] pH (Bld) 7.33 [pH] Low 7.35-7.45 [facility] Comment on above: Performed By: #### 8 5499 #### [facility] [address] [place] [address], [facility] Potassium molar conc 4.7 mmol/L Normal 3.5-4.9 [facility] Comment on above: Performed By: #### 8 5499 #### [facility] [address] [place] [address], [facility] Sodium molar conc 140 mmol/L Normal 138-146 [facility] Comment on above: Performed By: #### 8 5499 #### [facility] [address] [place] [address], [facility] BASE EXCESS -4.0 mmol/L Low -2.0-3.0 [facility] Comment on above: Performed By: #### 3 1488 #### [facility] [address] [place] [address], [facility] Glucose mass conc 161 mg/dL High 70-105 [facility] Comment on above: Performed By: #### 3 1488 #### [facility] [address] [place] [address], [facility] Hematocrit Volume Fraction (Bld) 30 % Low 38-51 [facility] Comment on above: Performed By: #### 3 1488 #### [facility] [address] [place] [address], [facility] Hemoglobin mass conc (Bld) 10.2 g/dL Low 12.0-17.0 [facility] Comment on above: Performed By: #### 3 1488 #### [facility] [address] [place] [address], [facility] IONIZED CALCIUM 1.19 mmol/L Normal 1.12-1.32 [facility] Comment on above: Performed By: #### 3 1488 #### [facility] [address] [place] [address], [facility] Oxygen ppres (Bld) 250.0 mm[Hg] High 80.0-105.0 [facility] Comment on above: Performed By: #### 3 1488 #### [facility] [address] [place] [address], [facility] PCO2 47.1 mmHg High 35.0-45.0 [facility] Comment on above: Performed By: #### 3 1488 #### [facility] [address] [place] [address], [facility] pH (Bld) 7.29 [pH] Low 7.35-7.45 [facility] Comment on above: Performed By: #### 3 1488 #### [facility] [address] [place] [address], [facility] Potassium molar conc 4.5 mmol/L Normal 3.5-4.9 [facility] Comment on above: Performed By: #### 3 1488 #### [facility] [address] [place] [address], [facility] Sodium molar conc 139 mmol/L Normal 138-146 [facility] Comment on above: Performed By: #### 3 1488 #### [facility] [address] [place] [address], [facility] BASE EXCESS -4.0 mmol/L Low -2.0-3.0 [facility] Comment on above: Performed By: #### 8 5123 #### [facility] [address] [place] [address], [facility] Glucose mass conc 206 mg/dL High 70-105 [facility] Comment on above: Performed By: #### 8 5123 #### [facility] [address] [place] [address], [facility] Hematocrit Volume Fraction (Bld) 32 % Low 38-51 [facility] Comment on above: Performed By: #### 8 5123 #### [facility] [address] [place] [address], [facility] Hemoglobin mass conc (Bld) 10.9 g/dL Low 12.0-17.0 [facility] Comment on above: Performed By: #### 8 5123 #### [facility] [address] [facility] [place] [address], [facility] IONIZED CALCIUM 1.20 mmol/L Normal 1.12-1.32 [facility] Comment on above: Performed By: #### 8 5123 #### [facility] [address] [facility] [place] [address], [facility] Oxygen ppres (Bld) 108.0 mm[Hg] High 80.0-105.0 [facility] Comment on above: Performed By: #### 8 5123 #### [facility] [address] [facility] [place] [address], [facility] PCO2 41.2 mmHg Normal 35.0-45.0 [facility] Comment on above: Performed By: #### 8 5123 #### [facility] [address] [facility] [place] [address], [facility] pH (Bld) 7.33 [pH] Low 7.35-7.45 [facility] Comment on above: Performed By: #### 8 5123 #### [facility] [address] [place] [address], [facility] Potassium molar conc 4.3 mmol/L Normal 3.5-4.9 [facility] Comment on above: Performed By: #### 8 5123 #### [facility] [address] [facility] [place] [address], [facility] Sodium molar conc 139 mmol/L Normal 138-146 [facility] Comment on above: Performed By: #### 8 5123 #### [facility] [address] [place] [address], [facility] POC GLUCOSE LABon 04-28-2018 Glucose mass conc 167 mg/dL High 70-100 [facility] Comment on above: Performed By: #### 5 0103 #### [facility] [address] [facility] [place] [address], [facility] Glucose mass conc 161 mg/dL High 70-100 [facility] Comment on above: Performed By: #### 5 0103 #### [facility] [address] [facility] [place] [address], [facility] Glucose mass conc 160 mg/dL High 70-100 [facility] Comment on above: Performed By: #### 3 1018 #### [facility] [address] [facility] [place] [address], [facility] Glucose mass conc 230 mg/dL High 70-100 [facility] Comment on above: Performed By: #### 3 6901, 44599, 07850 #### [facility] [address] [facility] [place] [address], [facility] PORTABLE CHEST 1 VIEWon 04-15 PORTABLE CHEST 1 VIEW [facility] Department of Radiology [address] [place] [id number] ======== Patient Name: PATO CORRAL : 1960 Sex: F Age: Race: White Pt. Location: [id number] Patient Status: I Ordered Date: 04/28/2018 6:15:00 [...] stomach, in satisfactory position. Right IJ approach Houston-Jen catheter with tip in the main pulmonary [...] tube in satisfactory position. Right IJ approach Houston-Jen catheter with tip in the main pulmonary [...] findings. Electronically signed by:Jerry Charles. Transcribed by: [email or web address], User Resident: CHANTE HAINES Electronically Signed by: JERRY CHARLES @ 04/29/2018 07:53 AM I personally read this/these film(s) with this resident Normal [facility] Comment on above: Order Comment: No: D o not add to previous draw PROTHROMBIN TIMEon 9 INR Coag RelTime (PPP) 1.37 {INR} High 0.91-1.16 [facility] Comment on above: Result Comment: ACCC P [...] 1995;108:[id number]. Performed By: #### 5 0103 #### [facility] [address] [employer] Prothrombin time (PT) Coag time (PPP) 16.9 s High 12.3-14.8 [facility] Comment on above: Result Comment: ALL RESULTS MUST BE INTERPRETED WITH RESPECT TO BLOOD DRAWING ARTIFACT OR DILUTION ERROR OF ANTICOAGULANT AT THE TIME OF SAMPLING. Performed By: #### 5 0103 #### [facility] [address] [facility] [address], [facility] RBC'S 2 UNITSon 04-28-2018 CROSSMATCH INTERP 1 COMP Normal [facility] Comment on above: Performed By: #### 3 1488 #### [facility] [address] [place] [address], [place] CROSSMATCH INTERP 2 COMP Normal [facility] Comment on above: Performed By: #### 3 1488 #### [facility] [address] [place] [address], [place] Protein mass conc PT Normal [facility] Comment on above: Result Comment: Resu lt changed by IF on 04/29/2018 10:38. The previous value was XM. Result changed by IF on 04/30/2018 00:30. The previous value was IS. Performed By: #### 3 1488 #### [facility] [address] [place] [address], [place] Protein mass conc 336 g/dL Normal [facility] Comment on above: Performed By: #### 3 1488 #### [facility] [address] [place] [address], [place] Protein mass conc RE Normal [facility] Comment on above: Result Comment: Resu lt changed by IF on 05/01/2018 07:28. The previous value was XM. Performed By: #### 3 1488 #### [facility] [address] [place] [address], [place] UNIT ABO 1 O Normal [facility] Comment on above: Performed By: #### 3 1488 #### [facility] [address] [place] [address], [place] UNIT ABO 2 O Normal [facility] Comment on above: Performed By: #### 3 1488 #### [facility] [address] [place] [address], [place] UNIT ID 1 [id number] Normal [facility] Comment on above: Performed By: #### 3 1488 #### [facility] [address] [place] [address], [place] UNIT ID 2 [id number] Normal [facility] Comment on above: Performed By: #### 3 1488 #### [facility] [address] [place] [address], [place] UNIT RH 1 Positive Normal [facility] Comment on above: Performed By: #### 3 1488 #### [facility] [address] [place] [address], [place] UNIT RH 2 Positive Normal [facility] Comment on above: Performed By: #### 3 1488 #### [facility] [address] [place] [address], [place] CROSSMATCH INTERP 1 COMP Normal [facility] Comment on above: Performed By: #### 8 5123 #### [facility] [address] [place] [address], [place] CROSSMATCH INTERP 2 COMP Normal [facility] Comment on above: Performed By: #### 8 5123 #### [facility] [address] [place] [address], [place] Protein mass conc 336 g/dL Normal [facility] Comment on above: Performed By: #### 8 5123 #### [facility] [address] [place] [address], [place] Protein mass conc PT Normal [facility] Comment on above: Result Comment: Resu lt changed by IF on 04/28/2018 15:02. The previous value was XM. Result changed by IF on 04/29/2018 00:30. The previous value was IS. Performed By: #### 8 5123 #### [facility] [address] [place] [address], [place] UNIT ABO 1 O Normal [facility] Comment on above: Performed By: #### 8 5123 #### [facility] [address] [place] [address], [place] UNIT ABO 2 O Normal [facility] Comment on above: Performed By: #### 8 5123 #### [facility] [address] [place] [address], [facility] UNIT ID 1 [id number] Normal [facility] Comment on above: Performed By: #### 8 5123 #### [facility] [address] [place] [address], [facility] UNIT ID 2 [id number] Normal [facility] Comment on above: Performed By: #### 8 5123 #### [facility] [address] [place] [address], [facility] UNIT RH 1 Positive Normal [facility] Comment on above: Performed By: #### 8 5123 #### [facility] [address] [place] [address], [facility] UNIT RH 2 Positive Normal [facility] Comment on above: Performed By: #### 8 5123 #### [facility] [address] [place] [address], [facility] CROSSMATCH INTERP 1 COMP Normal [facility] Comment on above: Performed By: #### 8 5123 #### [facility] [address] [place] [address], [facility] CROSSMATCH INTERP 2 COMP Normal [facility] Comment on above: Performed By: #### 8 5123 #### [facility] [address] [place] [address], [facility] Protein mass conc 336 g/dL Normal [facility] Comment on above: Performed By: #### 8 5123 #### [facility] [address] [place] [address], [facility] Protein mass conc PT Normal [facility] Comment on above: Result Comment: Resu lt changed by IF on 04/28/2018 13:08. The previous value was XM. Result changed by IF on 04/29/2018 00:30. The previous value was IS. Performed By: #### 8 5123 #### [facility] [address] UNIT ABO 1 O Normal [facility] Comment on above: Performed By: #### 8 5123 #### [facility] [address] [place] [address], [facility] UNIT ABO 2 O Normal [facility] Comment on above: Performed By: #### 8 5123 #### [facility] [address] UNIT ID 1 [id number] Normal [facility] Comment on above: Performed By: #### 8 5123 #### [facility] [address] UNIT ID 2 [id number] Normal [facility] Comment on above: Performed By: #### 8 5123 #### [facility] [address] [facility] [address] UNIT RH 1 Positive Normal [facility] Comment on above: Performed By: #### 8 5123 #### [facility] [address] [facility]. [address] UNIT RH 2 Positive Normal [facility] Comment on above: Performed By: #### 8 5123 #### [facility] [address] [facility] [address] UFH HEPARIN ASSAYon 04-28-19 19 UNFRACTIONATED HEPARIN <0.10 Critically low 0.30-0.70 [facility] Comment on above: Result Comment: [place] roxaban and Apixaban will interfere with the anti Xa assay used to monitor UFH and LMWH. RESULTS CHECKED AND CALLED. ACCURATELY READ BACK BY BRADY JORDAN RN AT 07:41 Performed By: #### 8 5123 #### [facility] [address] ARTERIAL BLOOD GAS W/COOXon 04-27-2018 BASE EXCESS 0 mmol/L Normal -2-2 [facility] Comment on above: Performed By: #### 3 690, 90113, 19222 #### [facility] [address] [place] [address], [facility] COHB 1 % Normal 0-1 [facility] Comment on above: Performed By: #### 3 690, 82504, 66504 #### [facility] [address] [place] [address], [facility] [employer] ROOM AIR Normal [facility] Comment on above: Performed By: #### 3 690, 44247, 64608 #### [facility] [address] [facility] [place] [address], [facility] FIO2 21 % Normal 21-100 [facility] Comment on above: Performed By: #### 3 6900, 70376, 14605 #### [facility] [address] [place] [address], [facility] HCO3 molar conc (Bld) 25 mmol/L Normal 23-27 [facility] Comment on above: Performed By: #### 3 690, 96247, 04790 #### [facility] [address] [facility] [place] [address], [facility] METHB 0.2 % Normal 0.0-1.5 [facility] Comment on above: Performed By: #### 3 690, 60583, 25903 #### [facility] [address] [place] [address], [facility] Oxygen ppres (Bld) 76 mm[Hg] Normal 75-100 [facility] Comment on above: Performed By: #### 3 690, 18049, 89655 #### [facility] [address] [place] [address], [facility] Oxygen saturation in Blood 93.6 % Low 94.0-97.0 [facility] Comment on above: Performed By: #### 3 690, 22003, 27416 #### [facility] [address] [place] [address], [place] PCO2 41 mmHg Normal 35-45 [facility] Comment on above: Performed By: #### 3 784, 61234, 22449 #### [facility] [address] [place] [address], [facility] pH (Bld) 7.39 [pH] Normal 7.35-7.45 [facility] Comment on above: Performed By: #### 3 690, 10519, 19460 #### [facility] [address] [place] [address], [place] THB 13.8 g/dL Normal 12.0-15.0 [facility] Comment on above: Performed By: #### 3 291, 26459, 01242 #### [facility] [address] [place] [address], [place] BASIC METABOLIC PANELon - Calcium mass conc 8.7 mg/dL Normal 8.6-10.3 [facility] Comment on above: Order Comment: No: D o not add to previous draw Performed By: #### 3 189, 68384, 72337 #### [facility] [address] [place] [address], [place] Chloride molar conc 103 mmol/L Normal 98-107 [facility] Comment on above: Order Comment: No: D o not add to previous draw Performed By: #### 3 690, 52407, 00982 #### [facility] [address] [place] [address], [place] CO2 molar conc 26 mmol/L Normal 21-31 [facility] Comment on above: Order Comment: No: D o not add to previous draw Performed By: #### 3 690, 23074, 46621 #### [facility] [address] [place] [address], [place] Creatinine mass conc 0.65 mg/dL Normal 0.60-1.20 [facility] Comment on above: Order Comment: No: D o not add to previous draw Performed By: #### 3 6901, 61831, 17535 #### [facility] [address] [place] [address], [place] GFR/1.73 sq M predicted among blacks MDRD vol rate/area (S/P/Bld) mL/min/{1.73_m2} Normal >60 [facility] Comment on above: Order Comment: No: D o not add to previous draw Performed By: #### 3 6901, 49802, 06993 #### [facility] [address] [place] [address], [place] GFR/1.73 sq M predicted among non-blacks MDRD vol rate/area (S/P/Bld) mL/min/{1.73_m2} Normal >60 [facility] Comment on above: Order Comment: No: D o not add to previous draw Performed By: #### 3 690, 41556, 11370 #### [facility] [address] [place] [address], [place] Glucose mass conc 192 mg/dL High 70-100 [facility] Comment on above: Order Comment: No: D o not add to previous draw Performed By: #### 3 690, 54812, 38297 #### [facility] [address] [place] [address], [place] Potassium molar conc 3.8 mmol/L Normal 3.5-5.1 [facility] Comment on above: Order Comment: No: D o not add to previous draw Performed By: #### 3 6901, 37171, 57519 #### [facility] [address] [place] [address], [place] Sodium molar conc 135 mmol/L Low 136-145 [facility] Comment on above: Order Comment: No: D o not add to previous draw Performed By: #### 3 690, 15947, 39803 #### [facility] [address] [place] [address], [facility] Urea nitrogen mass conc 12 mg/dL Normal 7-25 [facility] Comment on above: Order Comment: No: D o not add to previous draw Performed By: #### 3 6901, 53224, 18169 #### [facility] [address] [place] [address], [facility] CBC COMPLETE BLOOD COUNTon - Erythrocyte distribution width Ratio (RBC) 14.0 % Normal 11.5-15.0 [facility] Comment on above: Order Comment: No: D o not add to previous draw Performed By: #### 3 2471, 78258, 42206 #### [facility] [address] [place] [id number], [facility] Hematocrit Volume Fraction (Bld) 35.3 % Low 36.0-45.0 [facility] Comment on above: Order Comment: No: D o not add to previous draw Performed By: #### 3 690, 68334, 47290 #### [facility] [address] [place] [address], [facility] Hemoglobin mass conc (Bld) 11.4 g/dL Low 12.0-15.0 [facility] Comment on above: Order Comment: No: D o not add to previous draw Performed By: #### 3 690, 66041, 59000 #### [facility] [address] [place] [address], [facility] MCH Entitic mass (RBC) 25.4 pg Low 27.0-33.0 [facility] Comment on above: Order Comment: No: D o not add to previous draw Performed By: #### 3 945, 43347, 28575 #### [facility] [address] [place] [address], [facility] MCHC mass conc (RBC) 32.3 g/dL Normal 32.0-35.0 [facility] Comment on above: Order Comment: No: D o not add to previous draw Performed By: #### 3 690, 57460, 93952 #### [facility] [address] [place] [address], [facility] MCV Entitic volume (RBC) 78.6 fL Low 82.0-98.0 [facility] Comment on above: Order Comment: No: D o not add to previous draw Performed By: #### 3 690, 32358, 06332 #### [facility] [address] [place] [address], [facility] Nucleated RBC/100 WBC Ratio (Bld) 0 % Normal 0-0 [facility] Comment on above: Order Comment: No: D o not add to previous draw Performed By: #### 3 690, 34802, 96471 #### [facility] [address] [place] [address], [facility] PLAT CNT 280 10*3/uL Normal 150-400 [facility] Comment on above: Order Comment: No: D o not add to previous draw Performed By: #### 3 690, , 85756 #### [facility] [address] [place] [address], [facility] RBC #/vol (Bld) 4.49 10*6/uL Normal 3.80-5.00 [facility] Comment on above: Order Comment: No: D o not add to previous draw Performed By: #### 3 690, 49271, 51986 #### [facility] [address] [place] [id number], [facility] WBC #/vol (Bld) 7.38 10*3/uL Normal 4.00-10.60 [facility] Comment on above: Order Comment: No: D o not add to previous draw Performed By: #### 3 690, 06085, 76481 #### [facility] [address] [place] [id number], [facility] Cardiovascular Lab Reporton 04-27-2018 Cardiovascular Lab Report [facility] MR #: [id number] Department of Physician: Martine [place] eDwayne Mcintosh M.D. Division of Service Date: 04/26/2018 Cardiology Birthdate: 1960 Adult Cardiovascular Room #: 3AB [id number] [facility] [address]u. [place] [id number] Cardiovascular Laboratory Report INDICATION: The patient is a 57-year-old woman, who is admitted with symptoms of unstable angina. A stress test yesterday showed apical maría elena-infarct ischemia. She was referred for cardiac catheterization. PROCEDURE: Bilateral selective coronary angiography from the right radial access. METHODS: Procedure was explained to the patient with the risks and benefits. She signed informed consent. 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 The right wrist area was prepped and draped in the usual fashion. Tong's test was favorable. Using micropuncture technique, the right radial artery was accessed. A 6-Maldivian x 11 cm Hydrophilic sheath was advanced. Verapamil was given through the sheath and heparin was administered intravenously. Bilateral selective coronary angiography was then performed using 6-Maldivian JL3.5 and JR5 diagnostic catheters. Catheters were [...] Mcintosh M.D. Date Trans: 04/27/2018 07:59 A/emily [id number] cc: Gianfranco Lau D.O. [facility] Nicolas Velazco [facility] [address] Normal [facility] LIVER BATTERYon 04-27-2018 Albumin mass conc 3.4 g/dL Low 3.5-5.7 [facility] Comment on above: Order Comment: No: D o not add to previous draw Performed By: #### 3 6901, 45819, 93170 #### [facility] [address] [facility] [place] [address], [facility] ALKALINE PHOSPH 103 IU/L Normal 34-104 [facility] Comment on above: Order Comment: No: D o not add to previous draw Performed By: #### 3 6901, 98741, 61231 #### [facility] [address] [place] [address], [place] ALT enzyme act/vol 9 U/L Normal 7-52 [facility] Comment on above: Order Comment: No: D o not add to previous draw Performed By: #### 3 6901, 60278, 09533 #### [facility] [address] [place] [address], [place] AST enzyme act/vol 9 U/L Low 13-39 [facility] Comment on above: Order Comment: No: D o not add to previous draw Performed By: #### 3 6901, 94106, 68316 #### [facility] [address] [place] [address], [facility] Bilirubin mass conc 0.2 mg/dL Low 0.3-1.0 [facility] Comment on above: Order Comment: No: D o not add to previous draw Performed By: #### 3 6901, 47261, 87939 #### [facility] [address] [place] [address], [facility] Bilirubin.direct mass conc 0.0 mg/dL Normal 0.0-0.2 [facility] Comment on above: Order Comment: No: D o not add to previous draw Performed By: #### 3 6901, 15194, 24728 #### [facility] [address] [place] [address], [facility] Protein mass conc 6.1 g/dL Normal 6.0-8.3 [facility] Comment on above: Order Comment: No: D o not add to previous draw Performed By: #### 3 6901, 00053, 59476 #### [facility] [address] [facility] [place] [address], [facility] MRI BRAIN W WO CONTRASTon MRI BRAIN W WO CONTRAST [facility] Department of Radiology [address] [place] [phone] ======== Patient Name: PATO CORRAL : 1960 Sex: F Age: Race: White Pt. Location: [id number] Patient Status: I Ordered Date: 04/27/2018 10:35:00 [...] findings. Electronically signed by:Ruth Yen. Transcribed by: [email or web address], User Resident: DIONY MOHR Electronically Signed by: RUTH YEN @ 04/28/2018 03:26 PM I personally read this/these film(s) with this resident Normal [facility] Comment on above: Order Comment: No: D o not add to previous draw POC GLUCOSE LABon 04-27-2018 Glucose mass conc 294 mg/dL High 70-100 [facility] Comment on above: Performed By: #### 3 6901, 96782, 84463 #### [facility] [address] [place] [address], [facility] Glucose mass conc 137 mg/dL High 70-100 [facility] Comment on above: Performed By: #### 3 6901, 92850, 03556 #### [facility] [address] [place] [address], [place] Glucose mass conc 172 mg/dL High 70-100 [facility] Comment on above: Performed By: #### 3 6901, 58837, 13148 #### [facility] [address] [place] [address], [place] TYPE AND SCREENon 04-27-2018 ABO INTERPRETATION O Normal [facility] Comment on above: Performed By: #### 3 6901, 30918, 67478 #### [facility] [address] [place] [address], [place] RH INTERPRETATION Positive Normal [facility] Comment on above: Performed By: #### 3 6901, 51937, 23143 #### [facility] [address] UFH HEPARIN ASSAYon 04-27-19 19 UNFRACTIONATED HEPARIN 0.15 IU/mL Critically low 0.30-0.70 [facility] Comment on above: Result Comment: Radha roxaban and Apixaban will interfere with the anti Xa assay used to monitor UFH and LMWH. RESULTS CHECKED AND CALLED. ACCURATELY READ BACK BY GRETTA EDWARDS RN AT 2238 Performed By: #### 3 1501, 98884, 94150 #### [facility] [address] [facility]. [address] UNFRACTIONATED HEPARIN <0.10 Critically low 0.30-0.70 [facility] Comment on above: Result Comment: Radha roxaban and Apixaban will interfere with the anti Xa assay used to monitor UFH and LMWH. result calld to RODRIGO MCCLURE RN 1455 Performed By: #### 3 6901, 51514, 64039 #### [facility] [address] [facility]. [address] UNFRACTIONATED HEPARIN <0.10 Critically low 0.30-0.70 [facility] Comment on above: Result Comment: Radha roxaban and Apixaban will interfere with the anti Xa assay used to monitor UFH and LMWH. RESULTS CHECKED AND CALLED. ACCURATELY READ BACK BY MADALYN DAO RN AT 620 Performed By: #### 3 6901, 44419, 77568 #### [facility] [address] [facility]. [address] USV ARTERIAL DUPLEX CAROTID BILATERAL COMPLETEon 04-27-2018 USV ARTERIAL DUPLEX CAROTID BILATERAL COMPLETE [facility] Department of Radiology [address] [place] [address] ======== Patient Name: PATO CORRAL : 1960 Sex: F Age: Race: White Pt. Location: [id number] Patient Status: I Ordered Date: 04/27/2018 8:00:00 AM Completed Date: 04/27/2018 10:29 AM Requesting Provider: KAREN RUVALCABA Attending Provider: FELIPE HUGO Report Copy To: Signs & Symptoms: CERVICAL BRUIT History: Patient history not available Comments: R/O Stenosis Exam: USV ARTERIAL DUPLEX CAROTID BILATERAL COMPLETE ======== Final Bilateral Cerebrovascular Duplex Scan Patient: PATO CORRAL : 1960 Study Date: 04/27/2018 08:17:37 Referring Physician: KAREN RUVALCABA Wood Panel Inspector: DIANA GARCIA RDMS Ordering Physician: KAREN RUVALCABA Primary Care Physician: GIANFRANCO LAU Patient Location: Inpatient Ordering Diagnosis: CERVICAL BRUIT Indications: CPT Code: 25608 Cerebrovascular Duplex Scan Technique: The carotid arteries, [...] Date: 04/27/2018 08:17:37 Page 2 of [address] [place], [place] [address] [place] [address] Noninvasive Vascular Laboratory Division of Vascular and Endovascular Surgery [facility] [phone] [facility] [phone] Transcribed by: JoeUseClarisse barajas Resident: Electronically Signed by: MAITEJANNET DELMIS @ 04/30/2018 03:37 PM Normal [facility] Comment on above: Order Comment: No: D o not add to previous draw USV VENOUS LOWER EXTREMITY M APPING BILATERALon 04-27-2018 USV VENOUS LOWER EXTREMITY MAPPING BILATERAL [facility] Department of Radiology [address] [place] [phone] ======== Patient Name: PATO CORRAL : 1960 Sex: F Age: Race: White Pt. Location: [id number] Patient Status: I Ordered Date: 04/27/2018 8:00:00 AM Completed Date: 04/27/2018 10:28 AM Requesting Provider: KAREN RUVALACBA Attending Provider: FELIPE HUGO Report Copy To: Signs & Symptoms: PERIPHERAL VASCULAR DISEASE History: Patient history not available Comments: R/O OBSTRUCTION, preop CABG Exam: USV VENOUS LOWER EXTREMITY MAPPING BILATERAL ======== Final Bilateral LE Saphenous Vein Mapping Patient: PATO CORRAL : 1960 Study Date: 04/27/2018 09:07:49 Referring Physician: KAREN RUVALCABA Wood Panel Inspector: DIANA GARCIA RDMS Ordering Physician: KAREN RUVALCABA Primary Care Physician: GIANFRANCO LAU Patient Location: Inpatient Ordering Diagnosis: PERIPHERAL VASCULAR DISEASE Indications: CPT Code: 05887E LE Saphenous Vein Mapping Technique: The greater [...] 09:07:49 Page 2 of 2 [address] [place] [address] Noninvasive Vascular Laboratory Division of Vascular and Endovascular Surgery [facility] [phone] Clinical [phone] Transcribed by: TanyarClarisse Resident: Electronically Signed by: SOHAIL TEJEDA @ 04/30/2018 02:46 PM Normal [facility] Comment on above: Order Comment: No: D o not add to previous draw *MRSA/MSSA DNA NASALon 04-26 *MRSA/MSSA DNA NASAL Clinical Report: (D) Specimen: NASAL SWAB Collected: 04/26/2018 17:30 Status: Final Last Updated: 04/27/2018 15:27 MSSA DNA (Final) Negative MRSA DNA (Final) Negative Normal [facility] Comment on above: Performed By: #### 3 6901, 71235, 42267 #### [facility] [address] [place] [address], [facility] APTTon 04-26-2018 aPTT Coag time (Bld) 168.6 s Critically high 25.0-35.0 [facility] Comment on above: Order Comment: [...] PRESENCE OF HEPARIN. Performed By: #### 3 6901, 96197, 06425 #### [facility] [address] [facility]. [address] CBC COMPLETE BLOOD COUNTon 0 - Erythrocyte distribution width Ratio (RBC) 14.2 % Normal 11.5-15.0 [facility] Comment on above: Order Comment: No: D o not add to previous draw Performed By: #### 3 732, 35113, 88575 #### [facility] [address] Hematocrit Volume Fraction (Bld) 36.5 % Normal 36.0-45.0 [facility] Comment on above: Order Comment: No: D o not add to previous draw Performed By: #### 3 7821, 54677, 45045 #### [facility] [address] [place] [address], [facility] Hemoglobin mass conc (Bld) 11.6 g/dL Low 12.0-15.0 [facility] Comment on above: Order Comment: No: D o not add to previous draw Performed By: #### 3 5011, 39927, 45742 #### [facility] [address] [place] [address], [facility] MCH Entitic mass (RBC) 25.1 pg Low 27.0-33.0 [facility] Comment on above: Order Comment: No: D o not add to previous draw Performed By: #### 3 690, , 65849 #### [facility] [address] MCHC mass conc (RBC) 31.8 g/dL Low 32.0-35.0 [facility] Comment on above: Order Comment: No: D o not add to previous draw Performed By: #### 3 6900, , 40016 #### [facility] [address] MCV Entitic volume (RBC) 79.0 fL Low 82.0-98.0 [facility] Comment on above: Order Comment: No: D o not add to previous draw Performed By: #### 3 6900, , 53132 #### [facility] [address] [facility] [address] Nucleated RBC/100 WBC Ratio (Bld) 0 % Normal 0-0 [facility] Comment on above: Order Comment: No: D o not add to previous draw Performed By: #### 3 6900, , 48006 #### [facility] [address] [facility] [address], [facility] PLAT CNT 289 10*3/uL Normal 150-400 [facility] Comment on above: Order Comment: No: D o not add to previous draw Performed By: #### 3 6900, 66885, 62999 #### [facility] [address] [facility] [place] [address], [facility] RBC #/vol (Bld) 4.62 10*6/uL Normal 3.80-5.00 [facility] Comment on above: Order Comment: No: D o not add to previous draw Performed By: #### 3 6900, 02983, 78302 #### [facility] [address] [place] [address], [facility] WBC #/vol (Bld) 7.32 10*3/uL Normal 4.00-10.60 [facility] Comment on above: Order Comment: No: D o not add to previous draw Performed By: #### 3 6901, 33509, 55227 #### [facility] [address] [place] [address], [facility] Erythrocyte distribution width Ratio (RBC) 14.4 % Normal 11.5-15.0 [facility] Comment on above: Order Comment: No: D o not add to previous draw Performed By: #### 3 690, 97378, 41266 #### [facility] [address] [place] [address], [facility] Hematocrit Volume Fraction (Bld) 35.6 % Low 36.0-45.0 [facility] Comment on above: Order Comment: No: D o not add to previous draw Performed By: #### 3 690, 59384, 04559 #### [facility] [address] [place] [address], [facility] Hemoglobin mass conc (Bld) 11.7 g/dL Low 12.0-15.0 [facility] Comment on above: Order Comment: No: D o not add to previous draw Performed By: #### 3 6900, 96658, 58646 #### [facility] [address] [place] [address], [place] MCH Entitic mass (RBC) 25.7 pg Low 27.0-33.0 [facility] Comment on above: Order Comment: No: D o not add to previous draw Performed By: #### 3 690, 70295, 59488 #### [facility] [address] [place] [address], [place] MCHC mass conc (RBC) 32.9 g/dL Normal 32.0-35.0 [facility] Comment on above: Order Comment: No: D o not add to previous draw Performed By: #### 3 690, 21836, 32768 #### [facility] [address] [place] [address], [place] MCV Entitic volume (RBC) 78.1 fL Low 82.0-98.0 [facility] Comment on above: Order Comment: No: D o not add to previous draw Performed By: #### 3 690, 88753, 26231 #### [facility] [address] Nucleated RBC/100 WBC Ratio (Bld) 0 % Normal 0-0 [facility] Comment on above: Order Comment: No: D o not add to previous draw Performed By: #### 3 690, 75193, 08203 #### [facility] [address] [facility] [address], [facility] PLAT CNT 284 10*3/uL Normal 150-400 [facility] Comment on above: Order Comment: No: D o not add to previous draw Performed By: #### 3 690, , 10775 #### [facility] [address] [facility] [place] [address], [facility] RBC #/vol (Bld) 4.56 10*6/uL Normal 3.80-5.00 [facility] Comment on above: Order Comment: No: D o not add to previous draw Performed By: #### 3 690, 15765, 45590 #### [facility] [address] [facility] [place] [address], [facility] WBC #/vol (Bld) 7.95 10*3/uL Normal 4.00-10.60 [facility] Comment on above: Order Comment: No: D o not add to previous draw Performed By: #### 3 690, 29634, 96327 #### [facility] [address] [facility] [address], [facility] CHEST AND LATERALon 04-26-19 19 CHEST AND LATERAL [facility] Department of Radiology [address] [place] [id number] ======== Patient Name: PATO CORRAL : 1960 Sex: F Age: Race: White Pt. Location: [address] [place] [address] Patient Status: I Ordered Date: 04/25/2018 8:55:00 [...] chest. Electronically signed by:Antwon Groves. Transcribed by: [email or web address], User Resident: Electronically Signed by: ANTWON GROVES @ 04/26/2018 08:21 AM Normal [facility] Comment on above: Order Comment: R/O C ardiomegaly, when patient is stable CT BRAIN WO CONTRASTon 04-26 CT BRAIN WO CONTRAST [facility] Department of Radiology [address] [place] [phone] ======== Patient Name: PATO CORRAL : 1960 Sex: F Age: Race: White Pt. Location: [id number] Patient Status: I Ordered Date: 04/26/2018 5:25:00 [...] findings. Electronically signed by:Ruth Yen. Transcribed by: [email or web address], User Resident: FERN JOSEPH Electronically Signed by: RUTH YEN @ 04/27/2018 03:17 PM I personally read this/these film(s) with this resident Normal [facility] Comment on above: Order Comment: No: D o not add to previous draw LIPID PROFILEon 04-26-2018 Cholesterol in HDL mass conc 39 mg/dL Normal 23-92 [facility] Comment on above: Result Comment: Slig ht variation in normal range could be due to gender and/or age. HDL CHOLESTEROL REFERENCE RANGE: 20 years and older Cardiovascular Risk > or =60 mg/dL Desirable 40 TO 59 mg/dL Low Risk <40 mg/dL High Risk Performed By: #### 3 6901, 88298, 79659 #### [facility] [address] [place] [address], [place] Cholesterol in LDL mass conc 54 mg/dL Normal 0-130 [facility] Comment on above: Result Comment: LDL IS A CALCULATION LDL IS ONLY VALID IF THE TRIG IS LESS THAN 400. Performed By: #### 3 6901, 37473, 57970 #### [facility] [address] [place] [address], [place] Cholesterol mass conc 279 mg/dL High 120-200 [facility] Comment on above: Result Comment: CHOL ESTEROL REFERENCE RANGE: 20 YEARS AND OLDER CARDIOVASCULAR RISK Less than 200 mg/dl Low Risk 200 to 239 mg/dl Borderline Risk 240 mg/dl and greater High Risk Performed By: #### 3 6901, 00418, 77698 #### [facility] [address] [place] [address], [place] Cholesterol.total/C holesterol in HDL mass ratio 7.2 {ratio} High .0-4.5 [facility] Comment on above: Performed By: #### 3 6901, 61466, 11254 #### [facility] [address] [place] [address], [place] NON-HDL CHOLESTEROL 240 mg/dL Normal [facility] Comment on above: Performed By: #### 3 690, 88175, 23542 #### [facility] [address] [place] [address], [place] Triglyceride mass conc 928 mg/dL High 40-149 [facility] Comment on above: Result Comment: TRIG LYCERIDE REFERENCE RANGE: 20 YEARS AND OLDER CARDIOVASCULAR RISK LESS THAN 150 mg/dl LOW RISK 150 TO 199 mg/dl BORDERLINE RISK 200 mg/dl AND GREATER HIGH RISK Performed By: #### 3 6901, 23116, 82501 #### [facility] [address] [place] [address], [place] VLDL CHOL 186 mg/dL High 0-40 [facility] Comment on above: Performed By: #### 3 6900, 06295, 06962 #### [facility] [address] [place] [address], [place] POC GLUCOSE LABon 04-26-2018 Glucose mass conc 190 mg/dL High 70-100 [facility] Comment on above: Performed By: #### 3 6900, 57512, 41333 #### [facility] [address] [place] [address], [place] Glucose mass conc 141 mg/dL High 70-100 [facility] Comment on above: Performed By: #### 3 6900, 70322, 96089 #### [facility] [address] [place] [address], [place] Glucose mass conc 154 mg/dL High 70-100 [facility] Comment on above: Performed By: #### 3 6900, 72326, 98895 #### [facility] [address] [place] [address], [place] Glucose mass conc 164 mg/dL High 70-100 [facility] Comment on above: Performed By: #### 3 6901, 86259, 60786 #### [facility] [address] [facility]. [address] PROTHROMBIN TIMEon 9 INR Coag RelTime (PPP) 1.01 {INR} Normal 0.91-1.16 [facility] Comment on above: Order Comment: [...] CHEST 1995;108:[id number]. Performed By: #### 3 6901, 88808, 82997 #### [facility] [address] Prothrombin time (PT) Coag time (PPP) 13.3 s Normal 12.3-14.8 [facility] Comment on above: Order Comment: No: D o not add to previous draw Result Comment: ALL RESULTS MUST BE INTERPRETED WITH RESPECT TO BLOOD DRAWING ARTIFACT OR DILUTION ERROR OF ANTICOAGULANT AT THE TIME OF SAMPLING. Performed By: #### 3 6901, 93505, 41048 #### [facility] [address] [place] [address], [facility] TROPONIN-Ion 04-26-2018 Troponin I.cardiac mass conc 0.01 ng/mL Normal 0.00-0.04 [facility] Comment on above: Order Comment: No: D o not add to previous draw Result Comment: REFE RENCE RANGES: 0.00 - 0.04 ng/ml NORMAL 0.05 - 0.50 ng/ml INDETERMINATE > 0.50 ng/ml CONSISTENT WITH AN M.I. Performed By: #### 3 6901, [id number], [id number] #### [facility] [address] [place] [address], [facility] Troponin I.cardiac mass conc 0.01 ng/mL Normal 0.00-0.04 [facility] Comment on above: Order Comment: No: D o not add to previous draw Result Comment: REFE RENCE RANGES: 0.00 - 0.04 ng/ml NORMAL 0.05 - 0.50 ng/ml INDETERMINATE > 0.50 ng/ml CONSISTENT WITH AN M.I. Performed By: #### 3 690, [id number], [id number] #### [facility] [address] UFH HEPARIN ASSAYon 04-26-19 19 UNFRACTIONATED HEPARIN <0.10 Critically low 0.30-0.70 [facility] Comment on above: Result Comment: [place] roxaban and Apixaban will interfere with the anti Xa assay used to monitor UFH and LMWH. RESULTS CHECKED AND CALLED. ACCURATELY READ BACK BY MADALYN HOLLIDAY RN AT 21:45 Performed By: #### 3 6901, [id number], [id number] #### [facility] [address] UNFRACTIONATED HEPARIN >1.00 Critically high 0.30-0.70 [facility] Comment on above: Order Comment: No: D o not add to previous draw Result Comment: [place] roxaban and Apixaban will interfere with the anti Xa assay used to monitor UFH and LMWH. UFH = 1.12 UFH added per protocol RESULTS CHECKED AND CALLED. ACCURATELY READ BACK BY ANDREAS BERNARD RN at 16:26 Performed By: #### 3 740, [id number], [id number] #### [facility] [address] [place] [address], [facility] UNFRACTIONATED HEPARIN 0.14 IU/mL Critically low 0.30-0.70 [facility] Comment on above: Result Comment: [place] roxaban and Apixaban will interfere with the anti Xa assay used to monitor UFH and LMWH. Results called. Accurately read back by ANDREAS BERNARD RN AT 0800 Performed By: #### 3 6901, [id number], [id number] #### [facility] [address] [place] [address], [facility] APTTon 04-25-2018 aPTT Coag time (Bld) 26.8 s Normal 25.0-35.0 [facility] Comment on above: Order Comment: [...] PURPOSE. Performed By: #### 1 0054 #### [facility] [address] [facility] [place] [address], [facility] BASIC METABOLIC PANELon 04-15 Calcium mass conc 9.1 mg/dL Normal 8.6-10.3 [facility] Comment on above: Order Comment: No: D o not add to previous draw Performed By: #### 1 0054 #### [facility] [address] [place] [address], [facility] Chloride molar conc 100 mmol/L Normal 98-107 [facility] Comment on above: Order Comment: No: D o not add to previous draw Performed By: #### 1 0054 #### [facility] [address] [place] [address], [facility] CO2 molar conc 24 mmol/L Normal 21-31 [facility] Comment on above: Order Comment: No: D o not add to previous draw Performed By: #### 1 0054 #### [facility] [address] [place] [address], [place] Creatinine mass conc 0.70 mg/dL Normal 0.60-1.20 [facility] Comment on above: Order Comment: No: D o not add to previous draw Performed By: #### 1 0054 #### [facility] [address] [place] [address], [place] GFR/1.73 sq M predicted among blacks MDRD vol rate/area (S/P/Bld) mL/min/{1.73_m2} Normal >60 [facility] Comment on above: Order Comment: No: D o not add to previous draw Performed By: #### 1 0054 #### [facility] [address] [place] [address], [place] GFR/1.73 sq M predicted among non-blacks MDRD vol rate/area (S/P/Bld) mL/min/{1.73_m2} Normal >60 [facility] Comment on above: Order Comment: No: D o not add to previous draw Performed By: #### 1 0054 #### [facility] [address] [place] [address], [place] Glucose mass conc 157 mg/dL High 70-100 [facility] Comment on above: Order Comment: No: D o not add to previous draw Performed By: #### 1 0054 #### [facility] [address] [place] [address], [place] Potassium molar conc 3.5 mmol/L Normal 3.5-5.1 [facility] Comment on above: Order Comment: No: D o not add to previous draw Performed By: #### 1 0054 #### [facility] [address] [place] [address], [place] Sodium molar conc 134 mmol/L Low 136-145 [facility] Comment on above: Order Comment: No: D o not add to previous draw Performed By: #### 1 0054 #### [facility] [address] Urea nitrogen mass conc 10 mg/dL Normal 7-25 [facility] Comment on above: Order Comment: No: D o not add to previous draw Performed By: #### 1 0054 #### [facility] [address] CBC W/DIFFon 04-25-2018 ABS BASOPHILS 0.0 10*3/uL Normal 0.0-0.2 [facility] Comment on above: Performed By: #### 1 0054 #### [facility] [address] ABS IMM GRANS 0.0 10*3/uL Normal 0.0-0.2 [facility] Comment on above: Performed By: #### 1 0054 #### [facility] [address] ABS NEUTROPHILS 5.2 10*3/uL Normal 1.6-7.6 [facility] Comment on above: Performed By: #### 1 0054 #### [facility] [address] Basophils #/vol (Bld) 0.4 % Normal 0.0-1.0 [facility] Comment on above: Performed By: #### 1 0054 #### [facility] [address] Eosinophils #/vol (Bld) 0.4 10*3/uL Normal 0.0-0.5 [facility] Comment on above: Performed By: #### 1 0054 #### [facility] [address] Eosinophils/100 WBC (Bld) 3.7 % Normal 0.0-6.0 [facility] Comment on above: Performed By: #### 1 0054 #### [facility] [address] Erythrocyte distribution width Ratio (RBC) 14.4 % Normal 11.5-15.0 [facility] Comment on above: Performed By: #### 1 0054 #### [facility] [address] Hematocrit Volume Fraction (Bld) 35.9 % Low 36.0-45.0 [facility] Comment on above: Performed By: #### 1 0054 #### [facility] [address] Hemoglobin mass conc (Bld) 11.7 g/dL Low 12.0-15.0 [facility] Comment on above: Performed By: #### 1 0054 #### [facility] [address] IMMATURE GRANS 0.2 % Normal 0.0-1.0 [facility] Comment on above: Performed By: #### 1 0054 #### [facility] [address] Lymphocytes #/vol (Bld) 3.4 10*3/uL Normal 1.2-4.0 [facility] Comment on above: Performed By: #### 1 0054 #### [facility] [address] Lymphocytes/100 WBC (Bld) 35.1 % Normal 20.0-45.0 [facility] Comment on above: Performed By: #### 1 0054 #### [facility] [address] MCH Entitic mass (RBC) 25.2 pg Low 27.0-33.0 [facility] Comment on above: Performed By: #### 1 0054 #### [facility] [address] [facility]. [address] MCHC mass conc (RBC) 32.6 g/dL Normal 32.0-35.0 [facility] Comment on above: Performed By: #### 1 0054 #### [facility] [address] [facility]. [address] MCV Entitic volume (RBC) 77.4 fL Low 82.0-98.0 [facility] Comment on above: Performed By: #### 1 0054 #### [facility] [address] Monocytes #/vol (Bld) 0.8 10*3/uL Normal 0.1-1.0 [facility] Comment on above: Performed By: #### 1 0054 #### [facility] [address] MONOS 7.7 % Normal 5.0-12.0 [facility] Comment on above: Performed By: #### 1 0054 #### [facility] [address] Neutrophils/100 WBC (Bld) 52.9 % Normal 40.0-72.0 [facility] Comment on above: Performed By: #### 1 0054 #### [facility] [address] Nucleated RBC/100 WBC Ratio (Bld) 0 % Normal 0-0 [facility] Comment on above: Performed By: #### 1 0054 #### [facility] [address] [facility] [address], [facility] PLAT CNT 277 10*3/uL Normal 150-400 [facility] Comment on above: Performed By: #### 1 0054 #### [facility] [address] [facility] [address], [facility] RBC #/vol (Bld) 4.64 10*6/uL Normal 3.80-5.00 [facility] Comment on above: Performed By: #### 1 0054 #### [facility] [address] WBC #/vol (Bld) 9.81 10*3/uL Normal 4.00-10.60 [facility] Comment on above: Performed By: #### 1 0054 #### [facility] [address] [facility]. [address] MAGNESIUM BLOODon 04-25-2018 Magnesium mass conc 1.7 mg/dL Low 1.9-2.7 [facility] Comment on above: Order Comment: No: D o not add to previous draw Performed By: #### 1 0054 #### [facility] [address] POC GLUCOSE LABon 04-25-2018 Glucose mass conc 125 mg/dL High 70-100 [facility] Comment on above: Performed By: #### 3 6901, [id number], [id number] #### [facility] [address] PROTHROMBIN TIMEon 9 INR Coag RelTime (PPP) 0.95 {INR} Normal 0.91-1.16 [facility] Comment on above: Order Comment: [...] 1995;[id number]. Performed By: #### 1 0054 #### [facility] [address] Prothrombin time (PT) Coag time (PPP) 12.7 s Normal 12.3-14.8 [facility] Comment on above: Order Comment: No: D o not add to previous draw Result Comment: ALL RESULTS MUST BE INTERPRETED WITH RESPECT TO BLOOD DRAWING ARTIFACT OR DILUTION ERROR OF ANTICOAGULANT AT THE TIME OF SAMPLING. Performed By: #### 1 0054 #### [facility] [address] TROPONIN-Ion 04-25-2018 Troponin I.cardiac mass conc 0.01 ng/mL Normal 0.00-0.04 [facility] Comment on above: Order Comment: No: D o not add to previous draw Result Comment: REFE RENCE RANGES: 0.00 - 0.04 ng/ml NORMAL 0.05 - 0.50 ng/ml INDETERMINATE > 0.50 ng/ml CONSISTENT WITH AN M.I. Performed By: #### 1 0054 #### [facility] [address] TSH3 WITH REFLEXon 9 T4 free mass conc 0.63 ng/dL Low 0.71-1.85 [facility] Comment on above: Performed By: #### 1 0054 #### [facility] [address] TSH 3RD GENERATION 0.85 uIU/mL Normal 0.34-5.60 [facility] Comment on above: Performed By: #### 1 0054 #### [facility] [address] POC GLUCOSE LABon 03-22-2018 Glucose mass conc 193 mg/dL High 70-100 [facility] Comment on above: Performed By: #### 1 0054 #### [facility] [address] Glucose mass conc 174 mg/dL High 70-100 [facility] Comment on above: Performed By: #### 1 0054 #### [facility] [address] CBC W/DIFFon 03-21-2018 ABS BASOPHILS 0.0 10*3/uL Normal 0.0-0.2 [facility] Comment on above: Order Comment: No: D o not add to previous draw Performed By: #### 5 0103 #### [facility] [address] ABS IMM GRANS 0.0 10*3/uL Normal 0.0-0.2 [facility] Comment on above: Order Comment: No: D o not add to previous draw Performed By: #### 5 0103 #### [facility] [address] ABS NEUTROPHILS 2.6 10*3/uL Normal 1.6-7.6 [facility] Comment on above: Order Comment: No: D o not add to previous draw Performed By: #### 5 0103 #### [facility] [address] Basophils #/vol (Bld) 0.4 % Normal 0.0-1.0 [facility] Comment on above: Order Comment: No: D o not add to previous draw Performed By: #### 5 0103 #### [facility] [address] Eosinophils #/vol (Bld) 0.3 10*3/uL Normal 0.0-0.5 [facility] Comment on above: Order Comment: No: D o not add to previous draw Performed By: #### 5 0103 #### [facility] [address] Eosinophils/100 WBC (Bld) 5.2 % Normal 0.0-6.0 [facility] Comment on above: Order Comment: No: D o not add to previous draw Performed By: #### 5 0103 #### [facility] [address] [facility] [address] Erythrocyte distribution width Ratio (RBC) 13.8 % Normal 11.5-15.0 [facility] Comment on above: Order Comment: No: D o not add to previous draw Performed By: #### 5 0103 #### [facility] [address] Hematocrit Volume Fraction (Bld) 36.1 % Normal 36.0-45.0 [facility] Comment on above: Order Comment: No: D o not add to previous draw Performed By: #### 5 0103 #### [facility] [address] Hemoglobin mass conc (Bld) 11.5 g/dL Low 12.0-15.0 [facility] Comment on above: Order Comment: No: D o not add to previous draw Performed By: #### 5 0103 #### [facility] [address] [place] [address], [facility] IMMATURE GRANS 0.4 % Normal 0.0-1.0 [facility] Comment on above: Order Comment: No: D o not add to previous draw Performed By: #### 5 0103 #### [facility] [address] Lymphocytes #/vol (Bld) 1.6 10*3/uL Normal 1.2-4.0 [facility] Comment on above: Order Comment: No: D o not add to previous draw Performed By: #### 5 0103 #### [facility] [address] Lymphocytes/100 WBC (Bld) 31.6 % Normal 20.0-45.0 [facility] Comment on above: Order Comment: No: D o not add to previous draw Performed By: #### 5 0103 #### [facility] [address] MCH Entitic mass (RBC) 25.7 pg Low 27.0-33.0 [facility] Comment on above: Order Comment: No: D o not add to previous draw Performed By: #### 5 0103 #### [facility] [address] [facility] [address] MCHC mass conc (RBC) 31.9 g/dL Low 32.0-35.0 [facility] Comment on above: Order Comment: No: D o not add to previous draw Performed By: #### 5 0103 #### [facility] [address] MCV Entitic volume (RBC) 80.6 fL Low 82.0-98.0 [facility] Comment on above: Order Comment: No: D o not add to previous draw Performed By: #### 5 3 #### [facility] [address] [facility]. [address] Monocytes #/vol (Bld) 0.5 10*3/uL Normal 0.1-1.0 [facility] Comment on above: Order Comment: No: D o not add to previous draw Performed By: #### 5 0103 #### [facility] [address] [facility] [address], [facility] MONOS 9.3 % Normal 5.0-12.0 [facility] Comment on above: Order Comment: No: D o not add to previous draw Performed By: #### 5 3 #### [facility] [address] [facility] [place] [address], [facility] Neutrophils/100 WBC (Bld) 53.1 % Normal 40.0-72.0 [facility] Comment on above: Order Comment: No: D o not add to previous draw Performed By: #### 5 0103 #### [facility] [address] [place] [address], [facility] Nucleated RBC/100 WBC Ratio (Bld) 0 % Normal 0-0 [facility] Comment on above: Order Comment: No: D o not add to previous draw Performed By: #### 5 0103 #### [facility] [address] [facility] [place] [address], [facility] PLAT CNT 204 10*3/uL Normal 150-400 [facility] Comment on above: Order Comment: No: D o not add to previous draw Performed By: #### 5 0103 #### [facility] [address] [facility] [place] [address], [facility] RBC #/vol (Bld) 4.48 10*6/uL Normal 3.80-5.00 [facility] Comment on above: Order Comment: No: D o not add to previous draw Performed By: #### 5 0103 #### [facility] [address] [facility] [place] [address], [facility] WBC #/vol (Bld) 4.97 10*3/uL Normal 4.00-10.60 [facility] Comment on above: Order Comment: No: D o not add to previous draw Performed By: #### 5 0103 #### [facility] [address] [facility] [place] [id number], [facility] HEMOGLOBIN A1Con 03-21-2018 Hemoglobin A1c/Hemoglobin.tota l mass fraction (Bld) 6.8 % High 4.0-6.0 [facility] Comment on above: Order Comment: No: D o not add to previous draw Performed By: #### 5 0103 #### [facility] [address] [facility] [place] [address], [facility] Hemoglobin A1c/Hemoglobin.tota l mass fraction (Bld) 148 mg/dL High 70-126 [facility] Comment on above: Order Comment: No: D o not add to previous draw Performed By: #### 5 0103 #### [facility] [address] [place] [address], [facility] MAGNESIUM BLOODon 03-21-2018 Magnesium mass conc 1.8 mg/dL Low 1.9-2.7 [facility] Comment on above: Performed By: #### 5 0103 #### [facility] [address] [place] [address], [facility] POC GLUCOSE LABon 03-21-2018 Glucose mass conc 186 mg/dL High 70-100 [facility] Comment on above: Performed By: #### 1 0054 #### [facility] [address] [place] [address], [facility] Glucose mass conc 129 mg/dL High 70-100 [facility] Comment on above: Performed By: #### 5 0103 #### [facility] [address] [place] [address], [facility] Glucose mass conc 179 mg/dL High 70-100 [facility] Comment on above: Performed By: #### 5 0103 #### [facility] [address] [place] [address], [facility] Glucose mass conc 159 mg/dL High 70-100 [facility] Comment on above: Performed By: #### 5 0103 #### [facility] [address] [place] [id number], [facility] TROPONIN-Ion 03-21-2018 Troponin I.cardiac mass conc 0.02 ng/mL Normal 0.00-0.04 [facility] Comment on above: Order Comment: No: D o not add to previous draw Result Comment: REFE RENCE RANGES: 0.00 - 0.04 ng/ml NORMAL 0.05 - 0.50 ng/ml INDETERMINATE > 0.50 ng/ml CONSISTENT WITH AN M.I. Performed By: #### 5 0103 #### [facility] [address] *BLOOD CULTUREon 03-20-2018 Bacteria identified Cx Nom (Bld) Clinical Report: (D) Specimen: BLOOD CULTURE Collected: 03/20/2018 11:20 Status: Final Last Updated: 03/26/2018 06:07 (1) x2 CULT RES (Final) No Growth Day 5 Normal [facility] Comment on above: Order Comment: No: D o not add to previous draw Performed By: #### 5 0103 #### [facility] [address] *RAPID FLU AANDB BY MOLECULA Ian 03-20-2018 *RAPID FLU AANDB BY MOLECULAR Clinical Report: (D) Specimen: NASAL SWAB Collected: 03/20/2018 16:00 Status: Final Last Updated: 03/20/2018 16:52 FLUA RNA (Final) Negative FLUB RNA (Final) Negative Normal [facility] Comment on above: Performed By: #### 3 1018 #### [facility] [address] BNP (B-TYPE NATRIURETIC PEPT ALICE)on 03-20-2018 Natriuretic peptide B mass conc (Bld) 40 pg/mL Normal 0-100 [facility] Comment on above: Order Comment: No: D o not add to previous draw Result Comment: Give n the appropriate clinical setting a BNP result of >100 pg/mL indicates congestive heart failure. Performed By: #### 8 5123 #### [facility] [address] [place] [address], [facility] CBC W/DIFFon 03-20-2018 ABS BASOPHILS 0.0 10*3/uL Normal 0.0-0.2 [facility] Comment on above: Order Comment: No: D o not add to previous draw Performed By: #### 5 0103 #### [facility] [address] [place] [address], [facility] ABS IMM GRANS 0.1 10*3/uL Normal 0.0-0.2 [facility] Comment on above: Order Comment: No: D o not add to previous draw Performed By: #### 5 0103 #### [facility] [address] [place] [address], [facility] ABS NEUTROPHILS 5.7 10*3/uL Normal 1.6-7.6 [facility] Comment on above: Order Comment: No: D o not add to previous draw Performed By: #### 5 0103 #### [facility] [address] [place] [address], [facility] Basophils #/vol (Bld) 0.3 % Normal 0.0-1.0 [facility] Comment on above: Order Comment: No: D o not add to previous draw Performed By: #### 5 0103 #### [facility] [address] [place] [address], [facility] Eosinophils #/vol (Bld) 0.1 10*3/uL Normal 0.0-0.5 [facility] Comment on above: Order Comment: No: D o not add to previous draw Performed By: #### 5 0103 #### [facility] [address] [place] [address], [facility] Eosinophils/100 WBC (Bld) 1.4 % Normal 0.0-6.0 [facility] Comment on above: Order Comment: No: D o not add to previous draw Performed By: #### 5 0103 #### [facility] [address] [place] [address], [facility] Erythrocyte distribution width Ratio (RBC) 14.0 % Normal 11.5-15.0 [facility] Comment on above: Order Comment: No: D o not add to previous draw Performed By: #### 5 0103 #### [facility] [address] Hematocrit Volume Fraction (Bld) 36.4 % Normal 36.0-45.0 [facility] Comment on above: Order Comment: No: D o not add to previous draw Performed By: #### 5 0103 #### [facility] [address] [facility]. [address] Hemoglobin mass conc (Bld) 11.6 g/dL Low 12.0-15.0 [facility] Comment on above: Order Comment: No: D o not add to previous draw Performed By: #### 5 0103 #### [facility] [address] [facility] [address], [facility] IMMATURE GRANS 0.7 % Normal 0.0-1.0 [facility] Comment on above: Order Comment: No: D o not add to previous draw Performed By: #### 5 0103 #### [facility] [address] [facility]. [address] Lymphocytes #/vol (Bld) 1.1 10*3/uL Low 1.2-4.0 [facility] Comment on above: Order Comment: No: D o not add to previous draw Performed By: #### 5 0103 #### [facility] [address] [facility]. [address] Lymphocytes/100 WBC (Bld) 14.5 % Low 20.0-45.0 [facility] Comment on above: Order Comment: No: D o not add to previous draw Performed By: #### 5 0103 #### [facility] [address] [facility] [address], [facility] MCH Entitic mass (RBC) 25.7 pg Low 27.0-33.0 [facility] Comment on above: Order Comment: No: D o not add to previous draw Performed By: #### 5 0103 #### [facility] [address] [facility] [place] [address], [facility] MCHC mass conc (RBC) 31.9 g/dL Low 32.0-35.0 [facility] Comment on above: Order Comment: No: D o not add to previous draw Performed By: #### 5 0103 #### [facility] [address] [facility] [address] MCV Entitic volume (RBC) 80.5 fL Low 82.0-98.0 [facility] Comment on above: Order Comment: No: D o not add to previous draw Performed By: #### 5 0103 #### [facility] [address] [facility]. [address] Monocytes #/vol (Bld) 0.4 10*3/uL Normal 0.1-1.0 [facility] Comment on above: Order Comment: No: D o not add to previous draw Performed By: #### 5 3 #### [facility] [address] MONOS 5.0 % Normal 5.0-12.0 [facility] Comment on above: Order Comment: No: D o not add to previous draw Performed By: #### 5 3 #### [facility] [address] [facility] [place] [address], [facility] Neutrophils/100 WBC (Bld) 78.1 % High 40.0-72.0 [facility] Comment on above: Order Comment: No: D o not add to previous draw Performed By: #### 5 0103 #### [facility] [address] [facility]. [address] Nucleated RBC/100 WBC Ratio (Bld) 0 % Normal 0-0 [facility] Comment on above: Order Comment: No: D o not add to previous draw Performed By: #### 5 0103 #### [facility] [address] [facility] [place] [address], [facility] PLAT CNT 230 10*3/uL Normal 150-400 [facility] Comment on above: Order Comment: No: D o not add to previous draw Performed By: #### 5 3 #### [facility] [address] [place] [address], [facility] RBC #/vol (Bld) 4.52 10*6/uL Normal 3.80-5.00 [facility] Comment on above: Order Comment: No: D o not add to previous draw Performed By: #### 5 0103 #### [facility] [address] [place] [address], [facility] WBC #/vol (Bld) 7.25 10*3/uL Normal 4.00-10.60 [facility] Comment on above: Order Comment: No: D o not add to previous draw Performed By: #### 5 3 #### [facility] [address] [place] [id number], [facility] COMP METABOLIC PANELon 03-20 Albumin mass conc 3.4 g/dL Low 3.5-5.7 [facility] Comment on above: Order Comment: No: D o not add to previous draw Performed By: #### 3 6901, 62638, 59840 #### [facility] [address] [place] [address], [facility] ALKALINE PHOSPH 72 IU/L Normal 34-104 [facility] Comment on above: Order Comment: No: D o not add to previous draw Performed By: #### 3 6901, 23022, 06872 #### [facility] [address] [place] [address], [facility] ALT enzyme act/vol 13 U/L Normal 7-52 [facility] Comment on above: Order Comment: No: D o not add to previous draw Performed By: #### 3 6901, 20976, 39838 #### [facility] [address] [place] [address], [facility] AST enzyme act/vol 10 U/L Low 13-39 [facility] Comment on above: Order Comment: No: D o not add to previous draw Performed By: #### 3 6901, 28091, 08488 #### [facility] [address] [place] [address], [place] Bilirubin mass conc 0.2 mg/dL Low 0.3-1.0 [facility] Comment on above: Order Comment: No: D o not add to previous draw Performed By: #### 3 6901, 16566, 36295 #### [facility] [address] [place] [address], [place] Calcium mass conc 8.4 mg/dL Low 8.6-10.3 [facility] Comment on above: Order Comment: No: D o not add to previous draw Performed By: #### 3 6901, 40110, 60902 #### [facility] [address] [place] [address], [place] Chloride molar conc 102 mmol/L Normal 98-107 [facility] Comment on above: Order Comment: No: D o not add to previous draw Performed By: #### 3 690, 34669, 84158 #### [facility] [address] [place] [address], [place] CO2 molar conc 23 mmol/L Normal 21-31 [facility] Comment on above: Order Comment: No: D o not add to previous draw Performed By: #### 3 690, 85332, 22200 #### [facility] [address] [place] [address], [place] Creatinine mass conc 0.83 mg/dL Normal 0.60-1.20 [facility] Comment on above: Order Comment: No: D o not add to previous draw Performed By: #### 3 6901, 32185, 85747 #### [facility] [address] [place] [address], [place] GFR/1.73 sq M predicted among blacks MDRD vol rate/area (S/P/Bld) mL/min/{1.73_m2} Normal >60 [facility] Comment on above: Order Comment: No: D o not add to previous draw Performed By: #### 3 2681, 28181, 48557 #### [facility] [address] [place] [address], [place] GFR/1.73 sq M predicted among non-blacks MDRD vol rate/area (S/P/Bld) mL/min/{1.73_m2} Normal >60 [facility] Comment on above: Order Comment: No: D o not add to previous draw Performed By: #### 3 690, 46852, 64538 #### [facility] [address] [place] [address], [place] Glucose mass conc 144 mg/dL High 70-100 [facility] Comment on above: Order Comment: No: D o not add to previous draw Performed By: #### 3 690, 88688, 41371 #### [facility] [address] [place] [address], [place] Potassium molar conc 3.7 mmol/L Normal 3.5-5.1 [facility] Comment on above: Order Comment: No: D o not add to previous draw Performed By: #### 3 690, , 63220 #### [facility] [address] [place] [address], [place] Protein mass conc 6.2 g/dL Normal 6.0-8.3 [facility] Comment on above: Order Comment: No: D o not add to previous draw Performed By: #### 3 690, 15995, 75738 #### [facility] [address] [place] [address], [place] Sodium molar conc 135 mmol/L Low 136-145 [facility] Comment on above: Order Comment: No: D o not add to previous draw Performed By: #### 3 690, 05170, 79241 #### [facility] [address] [place] [address], [place] Urea nitrogen mass conc 17 mg/dL Normal 7-25 [facility] Comment on above: Order Comment: No: D o not add to previous draw Performed By: #### 3 6901, 40852, 08377 #### [facility] [address] [place] [address], [facility] LACTATE BLOODon 03-20-2018 Lactate molar conc 1.3 mmol/L Normal 0.5-2.2 [facility] Comment on above: Order Comment: No: D o not add to previous draw Performed By: #### 1 0054 #### [facility] [address] [place] [address], [facility] LIPASE BLOODon 03-20-2018 Lipase enzyme act/vol 18 Units/L Normal 11-82 [facility] Comment on above: Performed By: #### 3 6901, 64548, 06984 #### [facility] [address] [place] [address], [facility] POC GLUCOSE LABon 03-20-2018 Glucose mass conc 219 mg/dL High 70-100 [facility] Comment on above: Performed By: #### 5 0103 #### [facility] [address] [place] [address], [facility] Glucose mass conc 128 mg/dL High 70-100 [facility] Comment on above: Performed By: #### 8 5499 #### [facility] [address] [place] [address], [facility] Glucose mass conc 165 mg/dL High 70-100 [facility] Comment on above: Performed By: #### 8 5499 #### [facility] [address] [place] [address], [facility] PROCALCITONINon 03-20-2018 Protein mass conc 0.44 ng/mL High 0.00-0.10 [facility] Comment on above: Order Comment: [...] PCT<0.5ng/mL Performed By: #### 3 1488 #### [facility] [address] [facility] [place] [address], [facility] TROPONIN-Ion 03-20-2018 Troponin I.cardiac mass conc 0.02 ng/mL Normal 0.00-0.04 [facility] Comment on above: Order Comment: No: D o not add to previous draw Result Comment: REFE RENCE RANGES: 0.00 - 0.04 ng/ml NORMAL 0.05 - 0.50 ng/ml INDETERMINATE > 0.50 ng/ml CONSISTENT WITH AN M.I. Performed By: #### 5 0103 #### [facility] [address] [place] [address], [facility] Troponin I.cardiac mass conc 0.03 ng/mL Normal 0.00-0.04 [facility] Comment on above: Order Comment: No: D o not add to previous draw Result Comment: REFE RENCE RANGES: 0.00 - 0.04 ng/ml NORMAL 0.05 - 0.50 ng/ml INDETERMINATE > 0.50 ng/ml CONSISTENT WITH AN M.I. Performed By: #### 3 6901, 56464, 60407 #### [facility] [address] Vital Signs Date Time Vital Sign Value Performing Clinician Gurpreet stubbs 04-28-2018 23:33-0500 Respiratory rate 14 /min DEFAULT PHYSICIAN [facility] Comment on above: Performed By: #### 5 0103 #### [facility] [address] [place] [address], [facility] 04-28-2018 22:19-0500 Respiratory rate 14 /min DEFAULT PHYSICIAN [facility] Comment on above: Order Comment: No: D o not add to previous draw Performed By: #### 5 0103 #### [facility] [address] [place] [address], [facility] 04-28-2018 20:34-0500 Respiratory rate 12 /min DEFAULT PHYSICIAN [facility] Comment on above: Performed By: #### 3 1018 #### [facility] [address] Encounters Encounter Date Encounter Type Care Provider Facility Start: 05-14-2025 ambulatory MD Dandre Burger Facil ity:[facility] Start: 03-29-2025 ambulatory JANET A BETTY Facili ty:[facility] Start: 11-02-2024 End: 11-02-2024 ambulatory RAJINDER ONEIDA [facility] Start: 09-28-2024 End: 09-28-2024 ambulatory JANET A BETTY Facility:[facility] Start: 09-04-2024 End: 09-04-2024 ambulatory JANET A BETTY Facility:[facility] Start: 09-04-2024 End: 09-04-2024 Patient encounter procedure JANET A BETTY [facility] Start: 08-31-2024 End: 08-31-2024 ambulatory JANET A BETTY Facility:[facility] Start: 06-29-2024 End: 06-29-2024 ambulatory Dandre Burger Facility:[facility] Start: 06-21-2024 End: 06-21-2024 ambulatory MD Dandre Burger Facility:[facility] Start: 06-21-2024 End: 06-21-2024 Patient encounter procedure Dandre Burger [facility] Start: 06-01-2024 End: 06-02-2024 ambulatory MD Dandre Burger Facility:[facility] Start: 06-01-2024 End: 06-02-2024 Patient encounter procedure Dandre Burger [facility] Start: 05-11-2024 End: 05-11-2024 ambulatory Dandre Burger Facility:[facility] Start: 04-06-2024 End: 04-06-2024 ambulatory Dandre Burger Facility:[facility] Start: 04-06-2024 End: 04-06-2024 Lab Drop off Dandre Burger [facility] Start: 04-06-2024 End: 04-06-2024 ambulatory Dandre Burger Facility: [facility] Start: 04-04-2024 End: 04-04-2024 ambulatory Dandre Burger Facility: [facility] Start: 01-04-2024 End: 01-04-2024 Lab Drop off Dandre Burger [facility] Start: 01-04-2024 End: 01-04-2024 ambulatory Dandre Burger Facility: [facility] Start: 10-04-2023 End: 10-04-2023 ambulatory Dandre Burger Facility: [facility] Start: 09-13-2023 End: 09-13-2023 ambulatory Dandre Burger Facility: [facility] Start: 08-27-2023 End: 08-27-2023 ambulatory JANET HERNÁNDEZ Facility:[facility] Start: 07-05-2023 End: 07-05-2023 ambulatory Dandre Buregr Facility:[facility] [place] Start: 06-22-2023 ambulatory Dandre Burger Facility :[facility] Start: 05-19-2023 End: 05-19-2023 ambulatory SEAN ROCCO Not Available Start: 05-05-2023 End: 05-05-2023 Lab Drop off Ivett Rios [facility] Start: 04-21-2023 End: 04-21-2023 ambulatory SEAN ROCCO Not Available Start: 04-21-2023 End: 04-21-2023 Patient encounter procedure [facility] Lalita Hyde [facility] Comment on above: Sensorineural hearin g loss (SNHL) of both ears (Primary Dx) Start: 04-05-2023 End: 04-05-2023 Lab Drop off Dandre Burger [facility] Start: 03-31-2023 End: 03-31-2023 ambulatory SEAN ROCCO Not Available Start: 02-10-2023 End: 02-10-2023 ambulatory SEAN A ROCCO Not Available Start: 02-10-2023 End: 02-10-2023 ambulatory SEAN A ROCCO Not Available Start: 12-14-2022 End: 12-14-2022 Lab Drop off Dandre Burger [facility] Start: 07-28-2022 End: 07-28-[address] LUIS FRIEDMAN Facility:[facility] Start: 07-20-2022 End: 07-21-[address] GIANFRANCO LAU Facility:[facility] Start: 04-20-2022 End: 04-21-[address] GIANFRANCO LAU Facility:[facility] Start: 10-10-2021 End: 10-11-[address] GIANFRANCO LAU Facility:[facility] Start: 08-18-2021 End: 08-19-2021 ambulatory RAJINDER MOHAMUD Facility: Start: 04-25-2018 End: 05-03-2018 Evaluation and management of inpatient WANG R OANH Facility:[facility] Start: 03-20-2018 End: 03-22-2018 Evaluation and management of inpatient James Live Facility:[facility] Start: 01-19-2018 End: 01-20-2018 Patient encounter procedure DEFAULT PHYSICIAN Facility:[facility] Procedures Date Procedure Procedure Detail Performing Clinician Start: 05-01-2018 Antibody screen DEFAULT PHYSICIAN Comment on above: Performed By: #### 5 0103 #### [facility] [address] [place] [address], [facility] Start: 04-28-2018 BYPASS 1 [...] on above: Performed By: #### 3 6901, 03994, 36799 #### [facility] [address] [place] [address], [facility] Start: 04-27-2018 MONITORING OF [...] Visit [facility] [address] [facility] [address] [place] [id number] [facility] Immunizations Immunization Date Immunization Notes Care Provider Fa [facility] 01-04-2024 influenza, high dose seasonal, preservative-free; Translations: [Fluzone High Dose Vaccine] Dandre Burger [facility] 12-28-2022 influenza, injectabl e, quadrivalent, preservative free Dandre Bugrer [facility] 10-21-2021 zoster vaccine recombinant Dandre Burger [facility] 05-29-2021 zoster vaccine recombinant Dandre Burger [facility] 03-01-2021 SARS-CoV-2 (COVID-19 ) mRNA BNT-162b2 vax Dandre Burger [facility] 06-28-2020 SARS-CoV-2 (COVID-19 ) mRNA BNT-162b2 vax Dandre Burger [facility] 05-31-2020 SARS-CoV-2 (COVID-19 ) mRNA BNT-162b2 vax Dandre Burger [facility] NEGATED: Highlighted row has not occurred!12-14-2022 influenza virus vaccine, unspecified formulation Dandre Burger [facility] Payers Date Payer Category Payer Unknown 2022 Medicare [id number] 2022 Medicare [id number] 2021 Medicaid [id number] 1959 Medicaid [id number] 1959 Unknown [id number] 1958 Unknown [id number] 2.16.8 40.1.828712.3.579.2.647 1958 Unknown [id number] 2.16.8 40.1.951295.3.579.2.647 1958 Unknown [id number] 2.16.8 40.1.575439.3.579.2.647 1958 Unknown [id number] 2.16.84 0.1.230377.3.579.2.593 1958 Unknown [id number] 2.16.84 0.1.445440.3.579.2.593 1958 Unknown [id number] 2.16.84 0.1.358798.3.579.2.593 1958 Unknown [id number] 2.16.84 0.1.909549.3.579.2.593 1958 Unknown [id number] 2.16.84 0.1.132818.3.579.2.593 1958 Unknown [id number] 2.16.84 0.1.899473.3.579.2.1259 1958 Unknown [id number] 2.16.84 0.1.319994.3.579.2.1259 1958 Unknown [id number] 2.16.84 0.1.221262.3.579.2.1259 1958 Unknown [id number] 2.16.840 .1.025944.3.579.2.1259 1958 Unknown [id number] 2.16.840 .1.264994.3.579.2.1259 1958 Unknown [id number] 2.16.8 40.1.305463.3.579.2.72 1958 Unknown [id number] 2.16.8 40.1.046972.3.579.2. 1958 Unknown [id number] 2.16.8 40.1.521414.3.579.2. 1958 Unknown [id number] 2.16.8 40.1.503915.3.579.2. 1958 Unknown [id number] 2.16.8 40.1.530572.3.579.2. 1958 Unknown [id number] 2.16.8 40.1.547533.3.579.2. 1958 Unknown [id number] 2.16.8 40.1.330357.3.579.2. 1958 Unknown [id number] 2.16.8 40.1.316882.3.579.2. 1958 Unknown [id number] 2.16.8 40.1.079935.3.579.2. 1958 Unknown [id number] 2.16.8 40.1.959196.3.579.2. 1958 Unknown [id number] 2.16.8 40.1.423096.3.579.2. 1958 Unknown [id number] 2.16.8 40.1.933981.3.579.2. 1958 Unknown [id number] 2.16.8 40.1.906957.3.579.2. 1958 Unknown [id number] 2.16.8 40.1.805748.3.579.2 1958 Unknown [id number] 2.16.8 40.1.080027.3.579.2.727 1958 Unknown [id number] 2.16.8 40.1.149439.3.579.2.727 1958 Unknown [id number] 2.16.8 40.1.704148.3.579.2.727 1958 Unknown [id number] 2.16.8 40.1.597631.3.579.2.727 1958 Unknown [id number] 2.16.8 40.1.001337.3.579.2.7 Unknown [id number] Social History Date Type Detail Facility Start: 12-14-2022 End: 04-05-2023 Tobacco smoking status Heavy tobacco smoker (finding) [facility] Tobacco smoking status Never [facility] Comment on above: Patient quit 03/2023 patient smokes 4-5 c igarettes a day. Smoked 1.5 ppd x 8 years, 1 ppd x 4 years, 11 years 1/2 ppd Sex Assigned At Female [facility] Tobacco smoking stat [facility] Tobacco smoking consumption unknown [facility] Start: 1960 Sex Assigned At Not on file [facility] Start: 05-05-2023 End: 08-31-2024 Tobacco smoking status Ex-smoker (finding) [facility] Comment on above: Patient quit 03/2023 patient smokes 4-5 c igarettes a day. Smoked 1.5 ppd x 8 years, 1 ppd x 4 years, 11 years 1/2 ppd Start: 04-06-2024 End: 05-11-2024 Tobacco smoking status Light tobacco smoker (finding) [facility] Comment on above: Patient quit 03/2023 patient smokes 4-5 c igarettes a day. Smoked 1.5 ppd x 8 years, 1 ppd x 4 years, 11 years 1/2 ppd Sexual Orientation [facility] Start: 06-26-2009 Sex Female (finding) [facility] Medical Equipment Procedure Code Equipment Code Equipment Origin al Text Equipment Identifier Dates [facility] Prescription, See Instructions, 60 Unspecified/Unknown, 3, Droplet 32G x 1/4 needles. Use to inject insulin sub q twice a day, [employer] [id number], Supply, 160, cm, 01/04/24 7:21:00 EDT, Height/Length Dosing, 78.7, kg, 01/04/24 7:21:00 EDT, Weight Dosing Start: 01-04-2024 [facility] D[facility] Prescription, See Instructions, 60 Unspecified/Unknown, 3, Droplet 32G x 1/4 needles. Use to inject insulin sub q twice a day, [employer] [id number], Supply, 160, cm, 01/04/24 7:21:00 EDT, Height/Length Dosing, 78.7, kg, 01/04/24 7:21:00 EDT, Weight Dosing Start: 01-04-2024 [facility] D[facility] Prescription, See Instructions, 60 Unspecified/Unknown, 3, Droplet 32G x 1/4 needles. Use to inject insulin sub q twice a day, [employer] [id number], Supply, 160, cm, 01/04/24 7:21:00 EDT, Height/Length Dosing, 78.7, kg, 01/04/24 7:21:00 EDT, Weight Dosing Start: 01-04-2024 [facility] D[facility] Prescription, See Instructions, 60 Unspecified/Unknown, 3, Droplet 32G x 1/4 needles. Use to inject insulin sub q twice a day, [employer] [id number], Supply, 160, cm, 01/04/24 7:21:00 EDT, Height/Length Dosing, 78.7, kg, 01/04/24 7:21:00 EDT, Weight Dosing Start: 01-04-2024 [facility] Prescription, See Instructions, 60 Unspecified/Unknown, 3, Droplet 32G x 1/4 needles. Use to inject insulin sub q twice a day E11.69, [employer] [id number], Supply, 161.5, cm, 06/29/24 7:50:00 EDT, Height/Length Dosing, 78.4, kg, 06/29/24 7:50:00 EDT, Weight Dosing Start: 07-20-2024 Clinical Notes 04-21-2023 to 11-02-2024 Lalita Hyde, LEANDRO - 04/21/2023 9:30 AM ESTRadiologyRadiology Note Date & Type Note Facility 11-02-2024 Note Cardiovascular Medic [facility] SUBJECTIVE Chief Complaint Patient presents with Coronary Artery Disease Hypertension Hyperlipidemia Pato Corral is a 64 y.o. female here for follow-up. PMHx: DM, CAD s/p CABG 2019, HTN, HLD HPI 11/02/2024 She denies any changes since last seen. She will be seeing nephrology with [facility] for her CKD stage III. She is working with PT for her arthritis. Denies c/o CP, dyspnea, orthopnea, PND, LE edema, dizziness/LH, palpitations, syncope. Not checking BP at home. Most recent A1C was 6.1 with her PCP. Problem List[1] Medical History[2] Family History[3] Social History[4] Allergies[5] OBJECTIVE Visit Vitals BP 139/75 (BP Location: Left arm, Patient Position: Sitting) Pulse 90 Ht 1.575 m (5' 2 ) Wt 79.8 kg (176 lb) SpO2 96% BMI 32.19 kg/m??? Smoking Status Former BSA 1.87 m??? Medications: Current Medications[6] Physical Exam Vitals reviewed. Constitutional: Appearance: Normal appearance. She is obese. HENT: Head: Normocephalic and atraumatic. Right Ear: External ear normal. Left Ear: External ear normal. Eyes: Extraocular Movements: Extraocular movements intact. Conjunctiva/sclera: Conjunctivae normal. Pupils: Pupils are equal, round, and reactive to light. Neck: Vascular: No carotid bruit. Cardiovascular: Rate and Rhythm: Normal rate and regular rhythm. Pulses: Normal pulses. Heart sounds: Normal heart sounds. Pulmonary: Effort: Pulmonary effort is normal. Breath sounds: Normal breath sounds. Abdominal: General: Bowel sounds are normal. Palpations: Abdomen is soft. Musculoskeletal: Cervical back: Neck supple. Right lower leg: No edema. Left lower leg: No edema. Skin: General: Skin is warm and dry. Neurological: General: No focal deficit present. Mental Status: She is alert and oriented to person, place, and time. Psychiatric: Mood and Affect: Mood normal. Behavior: Behavior normal. Thought Content: Thought content normal. Judgment: Judgment normal. Labs: Lab Results Component Value Date BNP 40 03/20/2018 No visits with results within 6 Month(s) from this visit. Latest known visit with results is: [facility] Encounter on 05/03/2018 Component Date Value Glucose POC 05/03/2018 223 (H) 12/17/2023 Hgb 12.2, plt 285 Cr 1.3, eGFR 45, K 4.6, Na 140, AST 17, ALT 19 HgbA1c 7.3 Chol 117, trig 266, HDL 36, LDL 47 Blood testing 12/14/2022: Hemoglobin 12.1, platelets 281, creatinine 1.4, EGFR 42, potassium 4.7, hemoglobin A1c 9%, cholesterol 96, triglycerides 233, HDL 36, LDL 30. Blood testing 12/05/2022: Hemoglobin 12, platelets 285, potassium 3.9, BUN 17, creatinine 1.16, EGFR 47. blood testing 07/28/2022: Hemoglobin 12.1, Platelets 273, potassium 4.7, BUN 15, creatinine 1.15, LFTs normal, at bedtime troponin normal 10.9, D-dimer 0.37 normal. Blood testing 07/25/2021: Chol 115, HDL 42, TG 237, LDL 26. Blood testing 07/28/2019: Hemoglobin 12.3, BUN 12, creatinine 1.05, potassium 4.0 Testing/Procedures: ECG 12/05/2022: Normal sinus rhythm, normal ECG. ECG 07/28/2032: Normal sinus rhythm, normal ECG. CT chest with contrast 07/28/2022: No evidence of pneumonia. Mild cardiomegaly. Mildly dilated main pulmonary artery suspicious for pulmonary hypertension. Stress test 08/18/2021: Fixed defect in the anterior wall likely representing breast attenuation artifact. No reversible ischemia. Normal exercise stress test. Echocardiogram 07/28/2021: Normal ventricular function, LVEF is 60%, right ventricle is mildly dilated, mild tricuspid regurgitation, normal right-sided pressures, no pericardial effusion. Prior testing: Cardiac cath 04/26/2018: Severe 3-vessel coronary artery disease. Echocardiogram 03/21/2018: Global left ventricular systolic function is normal (Visually estimated EF 60%). No regional wall motion abnormality. Grade 1, mild diastolic dysfunction (abnormal relaxation). Normal right ventricular systolic function. Lipomatous hypertrophy of the interatrial septum. The aortic valve is normal Aortic valve is tri-leaflet. Doppler studies suggest normal right sided pressures. No significant valvular abnormalities Echocardiogram 04/26/2018: Global left ventricular systolic function is normal (Visually estimated EF 60%). Normal right ventricular systolic function. Limited echocardiogram was done to assess left ventricular systolic function Carotid duplex 04/27/2018: 1. Antegrade flow of both vertebral arteries. 2. Stenosis in the range of 0-15% in both internal carotid arteries. [place] 04/28/2018 (post op): Global left ventricular systolic function is normal (Visually estimated EF 60%). The aortic root is normal in size. No pericardial effusion. CABG 04/28/2018: Coronary artery bypass grafting x4 with grafting of the: Left internal thoracic artery to the distal left anterior descending coronary artery. Saphenous vein graft into the (more content not included)... [facility] 11-02-2024 Note Patient is here toda y for a 1 year follow up. Patient states she has her days. Patient states she is going through therapy for her back. In 2 weeks she will be seeing nephrology for state 3 kidney failure. Patient states she started smoking again, between 2 to 7 cigarettes per day. Patient denies chest pain, SOB, leg swelling/pain, DAY, fatigue, palpitations/racing heart. Patient complains of left arm pain/numbness, denies injury, patient states its been on and off for months. Review of Systems Musculoskeletal: Positive for back pain and joint pain. [facility] 09-28-2024 Note Patient Education Nephrology Chronic Kidney Disease, Adult Chronic kidney disease (CKD) occurs when the kidneys are slowly and permanently damaged over a long period of time. The kidneys are a pair of organs that do many important jobs in the body, including: ??? Removing waste and extra fluid from the blood to make urine. ??? Making hormones that maintain the amount of fluid in tissues and blood vessels. ??? Maintaining the right amount of fluids and chemicals in the body. A small amount of kidney damage may not cause problems, but a large amount of damage may make it hard or impossible for the kidneys to work right. Steps must be taken to slow kidney damage or to stop it from getting worse. If steps are not taken, the kidneys may stop working permanently (end-stage renal disease, or ESRD). Most of the time, CKD does not go away, but it can often be controlled. People who have CKD are usually able to live full lives. What are the causes? The most common causes of this condition are diabetes and high blood pressure (hypertension). Other causes include: ??? Cardiovascular diseases. These affect the heart and blood vessels. ??? Kidney diseases. These include: ? Glomerulonephritis, or inflammation of the tiny filters in the kidneys. ? Interstitial nephritis. This is swelling of the small tubes of the kidneys and of the surrounding structures. ? Polycystic kidney disease, in which clusters of fluid-filled sacs form within the kidneys. ? Renal vascular disease. This includes disorders that affect the arteries and veins of the kidneys. ??? Diseases that affect the body's defense system (immune system). ??? A problem with urine flow. This may be caused by: ? Kidney stones. ? Cancer. ? An enlarged prostate, in males. ??? A kidney infection or urinary tract infection (UTI) that keeps coming back. ??? Vasculitis. This is swelling or inflammation of the blood vessels. What increases the risk? Your chances of having kidney disease increase with age. The following factors may make you more likely to develop this condition: ??? A family history of kidney disease or kidney failure. Kidney failure means the kidneys can no longer work right. ??? Certain genetic diseases. ??? Taking medicines often that are damaging to the kidneys. ??? Being around or being in contact with toxic substances. ??? Obesity. ??? A history of tobacco use. What are the signs or symptoms? Symptoms of this condition include: ??? Feeling very tired (lethargic) and having less energy. ??? Swelling, or edema, of the face, legs, ankles, or feet. ??? Nausea or vomiting, or loss of appetite. ??? Confusion or trouble concentrating. ??? Muscle twitches and cramps, especially in the legs. ??? Dry, itchy skin. ??? A metallic taste in the mouth. ??? Producing less urine, or producing more urine (especially at night). ??? Shortness of breath. ??? Trouble sleeping. CKD may also result in not having enough red blood cells or hemoglobin in the blood (anemia) or having weak bones (bone disease). Symptoms develop slowly and may not be obvious until the kidney damage becomes severe. It is possible to have kidney disease for years without having symptoms. How is this diagnosed? This condition may be diagnosed based on: ??? Blood tests. ??? Urine tests. ??? Imaging tests, such as an ultrasound or a CT scan. ??? A kidney biopsy. This involves removing a sample of kidney tissue to be looked at under a microscope. Results from these tests will help to determine how serious the CKD is. How is this treated? There is no cure for most cases of this condition, but treatment usually relieves symptoms and prevents or slows the worsening of the disease. Treatment may include: ??? Diet changes, which may require you to avoid alcohol and foods that are high in salt, potassium, phosphorous, and protein. ??? Medicines. These may: ? Lower blood pressure. ? Control blood sugar (glucose). ? Relieve anemia. ? Relieve swelling. ? Protect your bones. ? Improve the balance of salts and minerals in your blood (electrolytes). ??? Dialysis, which is a type of treatment that removes toxic waste from the body. It may be needed if you have kidney failure. ??? Managing any other conditions that are causing your CKD or making it worse. Follow these instructions at home: Medicines ??? Take nrwy-hpp-xugwtyi and prescription medicines only as told by your health care provider. The amount of some medicines that you take may need to be changed. ??? Do not take any new medicines unless approved by your health care provider. Many medicines can make kidney damage worse. ??? Do not take any vitamin and mineral supplements unless approved by your health care provider. Many nutritional supplements can make kidney damage worse. Lifestyle ??? Do not use any products that contain nicotine or tobac (more content not included)... [facility] 08-31-2024 Note Patient Education Orthopedics Chronic Back Pain Chronic back pain is back pain that lasts longer than 3 months. The pain may get worse at certain times (flare-ups). There are things you can do at home to manage your pain. Follow these instructions at home: Watch for any changes in your symptoms. Take these actions to help with your pain: Managing pain and stiffness ??? If told, put ice on the painful area. You may be told to use ice for 24?48 hours after a flare-up starts. ? Put ice in a plastic bag. ? Place a towel between your skin and the bag. ? Leave the ice on for 20 minutes, 2?3 times a day. ??? If told, put heat on the painful area. Do this as often as told by your doctor. Use the heat source that your doctor recommends, such as a moist heat pack or a heating pad. ? Place a towel between your skin and the heat source. ? Leave the heat on for 20?30 minutes. ??? If your skin turns bright red, take off the ice or heat right away to prevent skin damage. The risk of damage is higher if you cannot feel pain, heat, or cold. ??? Soak in a warm bath. This can help with pain. Activity ??? Avoid bending and other activities that make the pain worse. ??? When you stand: ? Keep your upper back and neck straight. ? Keep your shoulders pulled back. ? Avoid slouching. ??? When you sit: ? Keep your back straight. ? Relax your shoulders. Do not round your shoulders or pull them backward. ??? Do not sit or technology trainer one place for too long. ??? Take short rest breaks during the day. Lying down or standing is often better than sitting. Resting can help relieve pain. ??? When sitting or lying down for a long time, do some mild activity or stretching. This will help to prevent stiffness and pain. ??? Get regular exercise. Ask your doctor what activities are safe for you. ??? You may have to avoid lifting. Ask your provider how much you can safely lift. ??? If you lift things: ? Bend your knees. ? Keep the weight close to your body. ? Avoid twisting. Medicines ??? Take binl-sds-vpawqxi and prescription medicines only as told by your doctor. ? You may need to take medicines for pain and swelling. These may be taken by mouth or put on the skin. You may also be given muscle relaxants. ??? Ask your doctor if the medicine prescribed to you: ? Requires you to avoid driving or using machinery. ? Can cause trouble pooping (constipation). You may need to take these actions to prevent or treat trouble pooping: ? Drink enough fluid to keep your pee (urine) pale yellow. ? Take loll-jat-bhikkkh or prescription medicines. ? Eat foods that are high in fiber. These include beans, whole grains, and fresh fruits and vegetables. ? Limit foods that are high in fat and sugars. These include fried or sweet foods. General instructions ??? Sleep on a firm mattress. Try lying on your side with your knees slightly bent. If you lie on your back, put a pillow under your knees. ??? Do not smoke or use any products that contain nicotine or tobacco. If you need help quitting, ask your doctor. Contact a doctor if: ??? Your pain does not get better with rest or medicine. ??? You have new pain. ??? You have a fever. ??? You lose weight quickly. ??? You have trouble doing your normal activities. ??? One or both of your legs or feet feel weak. ??? One or both of your legs or feet lose feeling (have numbness). Get help right away if: ??? You are not able to control when you pee or poop. ??? You have bad back pain and: ? You feel like you may vomit (nauseous). ? You vomit. ? You have pain in your chest or your belly (abdomen). ? You have shortness of breath. ? You faint. These symptoms may be an emergency. Get help right away. Call 911. ??? Do not wait to see if the symptoms will go away. ??? Do not drive yourself to the hospital. This information is not intended to replace advice given to you by your health care provider. Make sure you discuss any questions you have with your health care provider. Document Revised: 10/19/2022 Document Reviewed: 10/19/2022 [employer] Patient Education ? 2023 [place]. [facility] 06-29-2024 Note Patient Education Nephrology Chronic Kidney Disease, Adult Chronic kidney disease (CKD) occurs when the kidneys are slowly and permanently damaged over a long period of time. The kidneys are a pair of organs that do many important jobs in the body, including: ??? Removing waste and extra fluid from the blood to make urine. ??? Making hormones that maintain the amount of fluid in tissues and blood vessels. ??? Maintaining the right amount of fluids and chemicals in the body. A small amount of kidney damage may not cause problems, but a large amount of damage may make it hard or impossible for the kidneys to work right. Steps must be taken to slow kidney damage or to stop it from getting worse. If steps are not taken, the kidneys may stop working permanently (end-stage renal disease, or ESRD). Most of the time, CKD does not go away, but it can often be controlled. People who have CKD are usually able to live full lives. What are the causes? The most common causes of this condition are diabetes and high blood pressure (hypertension). Other causes include: ??? Cardiovascular diseases. These affect the heart and blood vessels. ??? Kidney diseases. These include: ? Glomerulonephritis, or inflammation of the tiny filters in the kidneys. ? Interstitial nephritis. This is swelling of the small tubes of the kidneys and of the surrounding structures. ? Polycystic kidney disease, in which clusters of fluid-filled sacs form within the kidneys. ? Renal vascular disease. This includes disorders that affect the arteries and veins of the kidneys. ??? Diseases that affect the body's defense system (immune system). ??? A problem with urine flow. This may be caused by: ? Kidney stones. ? Cancer. ? An enlarged prostate, in males. ??? A kidney infection or urinary tract infection (UTI) that keeps coming back. ??? Vasculitis. This is swelling or inflammation of the blood vessels. What increases the risk? Your chances of having kidney disease increase with age. The following factors may make you more likely to develop this condition: ??? A family history of kidney disease or kidney failure. Kidney failure means the kidneys can no longer work right. ??? Certain genetic diseases. ??? Taking medicines often that are damaging to the kidneys. ??? Being around or being in contact with toxic substances. ??? Obesity. ??? A history of tobacco use. What are the signs or symptoms? Symptoms of this condition include: ??? Feeling very tired (lethargic) and having less energy. ??? Swelling, or edema, of the face, legs, ankles, or feet. ??? Nausea or vomiting, or loss of appetite. ??? Confusion or trouble concentrating. ??? Muscle twitches and cramps, especially in the legs. ??? Dry, itchy skin. ??? A metallic taste in the mouth. ??? Producing less urine, or producing more urine (especially at night). ??? Shortness of breath. ??? Trouble sleeping. CKD may also result in not having enough red blood cells or hemoglobin in the blood (anemia) or having weak bones (bone disease). Symptoms develop slowly and may not be obvious until the kidney damage becomes severe. It is possible to have kidney disease for years without having symptoms. How is this diagnosed? This condition may be diagnosed based on: ??? Blood tests. ??? Urine tests. ??? Imaging tests, such as an ultrasound or a CT scan. ??? A kidney biopsy. This involves removing a sample of kidney tissue to be looked at under a microscope. Results from these tests will help to determine how serious the CKD is. How is this treated? There is no cure for most cases of this condition, but treatment usually relieves symptoms and prevents or slows the worsening of the disease. Treatment may include: ??? Diet changes, which may require you to avoid alcohol and foods that are high in salt, potassium, phosphorous, and protein. ??? Medicines. These may: ? Lower blood pressure. ? Control blood sugar (glucose). ? Relieve anemia. ? Relieve swelling. ? Protect your bones. ? Improve the balance of salts and minerals in your blood (electrolytes). ??? Dialysis, which is a type of treatment that removes toxic waste from the body. It may be needed if you have kidney failure. ??? Managing any other conditions that are causing your CKD or making it worse. Follow these instructions at home: Medicines ??? Take qsif-eqd-nuxifgq and prescription medicines only as told by your health care provider. The amount of some medicines that you take may need to be changed. ??? Do not take any new medicines unless approved by your health care provider. Many medicines can make kidney damage worse. ??? Do not take any vitamin and mineral supplements unless approved by your health care provider. Many nutritional supplements can make kidney damage worse. Lifestyle ??? Do not use any products that contain nicotine or tobac (more content not included)... [facility] 05-11-2024 Note Patient Education Emergency Medicine Heart Attack A heart attack occurs when blood and oxygen supply to the heart is cut off. A heart attack can cause damage to the heart that cannot be fixed. A heart attack is also called a myocardial infarction, or AL. If you think you are having a heart attack, do not wait to see if the symptoms will go away. Get medical help right away. What are the causes? This condition may be caused by: ??? A fatty substance (plaque) in the blood vessels (arteries). This can block the flow of blood to the heart. ??? A blood clot in the blood vessels that go to the heart. The blood clot blocks blood flow. ??? An abnormal heartbeat. ??? Some diseases, such as problems in red blood cells (anemia)orproblems in breathing (respiratory failure). ??? Tightening (spasm) of a blood vessel that cuts off blood to the heart. ??? A tear in a blood vessel of the heart. Other causes may include: ??? Using drugs such as cocaine or methamphetamine. ??? Low blood pressure. What increases the risk? Aging. The risk gets higher as you get older. ??? Having a personal or family history of chest pain, heart attack, stroke, or narrowing of the arteries in the legs, arms, head, or stomach (peripheral vascular disease). ??? Having taken chemotherapy or immune-suppressing medicines. ??? Being male. ??? Being overweight or obese. ??? Having any of these conditions: ? High blood pressure. ? High cholesterol. ? Diabetes. ??? Making lifestyle choices such as: ? Drinking too much alcohol. ? Not getting regular exercise. ? Smoking. What are the signs or symptoms? Chest pain. It may feel like: ? Crushing or squeezing. ? Tightness, pressure, fullness, or heaviness. ??? Pain in the arm, neck, jaw, back, or upper body. ??? Heartburn. ??? Upset stomach (indigestion). ??? Shortness of breath. ??? Feeling like you may vomit (nauseous). ??? Cold sweats. ??? Sudden light-headedness, dizziness, or passing out. ??? Feeling tired. How is this treated? A heart attack must be treated as soon as possible. Treatment may include: ??? Medicines to: ? Break up or dissolve blood clots. ? Thin your blood and help prevent blood clots. ? Treat blood pressure. ? Improve blood flow to the heart. ? Reduce pain. ? Reduce cholesterol. ??? Procedures to widen a blocked artery and keep it open. ??? Open heart surgery. ??? Making your heart strong again (cardiac rehabilitation) through exercise, education, and counseling. Follow these instructions at home: Medicines ??? Take erna-vxx-vkliitz and prescription medicines only as told by your doctor. ??? Do not take these medicines unless your doctor says it is okay: ? NSAIDs, such as ibuprofen, naproxen, or celecoxib. ? Any vitamins or supplements. ? Hormone replacement therapy that has estrogen with or without progestin. ??? If you are taking blood thinners: ? Talk with your doctor before taking any medicines that have aspirin or NSAIDs, such as ibuprofen. ? Take medicines exactly as told. Take them at the same time each day. ? Avoid doing things that could hurt or bruise you. Take action to prevent falls. ? Wear an alert bracelet or carry a card that shows you are taking blood thinners. Lifestyle ??? Do not smoke or use any products that contain nicotine or tobacco. If you need help quitting, ask your doctor. ??? Avoid secondhand smoke. ??? Exercise regularly. Ask your doctor about a cardiac rehab program. ??? Eat heart-healthy foods. Your doctor will tell you what foods to eat. ??? Stay at a healthy weight. ??? Learn ways to lower your stress level. ??? Do not use illegal drugs. Alcohol use ??? Do not drink alcohol if: ? Your doctor tells you not to drink. ? You are , may be , or are planning to become . ??? If you drink alcohol: ? Limit how much you have to: ? 0?1 drink a day for women. ? 0?2 drinks a day for men. ? Know how much alcohol is in your drink. In the [place] one drink equals one 12 oz bottle of beer (355 mL), one 5 oz glass of wine (148 mL), or one 1? oz glass of hard liquor (44 mL). General instructions ??? Work with your doctor to treat other problems you may have, such as diabetes or high blood pressure. ??? Get screened for depression. Get treatment if needed. ??? Keep your vaccines up to date. Get the flu shot (influenza vaccine) every year. ??? Keep all follow-up visits. Contact a doctor if: ??? You feel very sad. ??? You have trouble doing your daily activities. ??? You get light-headed or dizzy. Get help right away if: ??? You have sudden, unexplained discomfort in your chest, arms, back, neck, jaw, or upper body. ??? You have shortness of breath. ??? You have sudden sweating or clammy skin. ??? You feel like you may vomit or you vomit. ??? You fe (more content not included)... [facility] 04-06-2024 Note Patient Education Nutrition BMI for Adults Body mass index (BMI) is a number found using a person's weight and height. BMI can help tell how much of a person's weight is made up of fat. BMI does not measure body fat directly. It is used instead of tests that directly measure body fat, which can be difficult and expensive. What are BMI measurements used for? BMI is useful to: ??? Find out if your weight puts you at higher risk for medical problems. ??? Help recommend changes, such as in diet and exercise. This can help you reach a healthy weight. BMI screening can be done again to see if these changes are working. How is BMI calculated? Your height and weight are measured. The BMI is found from those numbers. This can be done with [place] or metric measurements. Note that charts and online BMI calculators are available to help you find your BMI quickly and easily without doing these calculations. To calculate your BMI in [place] measurements: 1. Measure your weight in pounds (lb). 2. Multiply the number of pounds by 703. ??? So, for an adult who weighs 150 lb, multiply that number by 703: 150 x 703, which equals 105,450. 3. Measure your height in inches. Then multiply that number by itself to get a measurement called inches squared. ??? So, for an adult who is 70 inches tall, the inches squared measurement is 70 inches x 70 inches, which equals 4,900 inches squared. 4. Divide the total from step 2 (number of lb x 703) by the total from step 3 (inches squared): 105,450 ? 4,900 = 21.5. This is your BMI. To calculate your BMI in metric measurements: 1. Measure your weight in kilograms (kg). ??? For this example, the weight is 70 kg. 2. Measure your height in meters (m). Then multiply that number by itself to get a measurement called meters squared. ??? So, for an adult who is 1.75 m tall, the meters squared measurement is 1.75 m x 1.75 m, which equals 3.1 meters squared. 3. Divide the number of kilograms (your weight) by the meters squared number. In this example: 70 ? 3.1 = 22.6. This is your BMI. What do the results mean? BMI charts are used to see if you are underweight, normal weight, overweight, or obese. The following guidelines will be used: ??? Underweight: BMI less than 18.5. ??? Normal weight: BMI between 18.5 and 24.9. ??? Overweight: BMI between 25 and 29.9. ??? Obese: BMI of 30 or above. BMI is a tool and cannot diagnose a condition. Talk with your health care provider about what your BMI means for you. Keep these notes in mind: ??? Weight includes fat and muscle. Someone with a muscular build, such as an athlete, may have a BMI that is higher than 24.9. In cases like these, BMI is not a correct measure of body fat. ??? If you have a BMI of 25 or higher, your provider may need to do more testing to find out if excess body fat is the cause. ??? BMI is measured the same way for males and females. Females usually have more body fat than males of the same height and weight. Where to find more information For more information about BMI, including tools to quickly find your BMI, go to: ??? Centers for Disease Control and Prevention: cdc.gov ??? [place] Heart Association: heart.org ??? National Heart, Lung, and Blood [place]: nhlbi.nih.gov This information is not intended to replace advice given to you by your health care provider. Make sure you discuss any questions you have with your health care provider. Document Revised: 11/19/2022 Document Reviewed: 11/12/2022 [employer] Patient Education ? 2023 [place]. [facility] 09-13-2023 Note Patient Education Nutrition BMI for Adults What [...] numbers. This can be done either in [place] or metric measurements. Note that charts and online BMI calculators are available to help you find your BMI quickly and easily without having to do these calculations yourself. To calculate your BMI in [place] measurements: 1. Measure your weight in [...] for Disease Control and Prevention: www.cdc.gov ? [place] [employer]: www.heart.org ? National Heart, Lung, and Blood Salt [place]: www.nhlbi.nih.gov Summary ? Body mass index (BMI) is a number that is calculated from a person's weight and height. ? BMI may help estimate how much of a person's weight is composed of fat. BMI can help identify those who may be at higher risk for certain medical problems. ? BMI can be measured using [place] measurements or metric measurements. ? BMI charts are used to identify whether you are underweight, normal weight, overweight, or obese. This information is not intended to replace advice given to you by your health care provider. Make sure you discuss any questions you have with your health care provider. Document Revised: 11/22/2019 Document Reviewed: 09/29/2019 [employer] [facility] Patient Education ? 2022 [place]. [facility] 04-21-2023 History of Present illness Narrative Patient was in today for [...] KENN hearing aids. documented in this encounter [facility] Healthcare Evaluation + Plan note Future Appointments Appointment Date:12/28/2022 07:40:00 AM Scheduled Provider:Dandre Burger MD Location:[facility] Appointment Type: Open [facility] Evaluation + Plan note Future Appointments Appointment Date:04/12/2023 10:00:00 AM Scheduled Provider: [facility] App[facility]ment Type:CT Chest, Low Dose Screening (FT) Appointment Date:05/05/2023 11:00:00 AM Scheduled Provider: Location:[facility] Appointment Type:FM Medicare Wellness Subsequent Appointment Date:07/05/2023 09:15:00 AM Scheduled Provider:Dandre Burger MD [facility] App[facility] Type: Open Future Scheduled TestsCT Chest, Low Dose Screening 04/12/23 [facility] Evaluation + Plan note Future Appointments Appointment Date:07/05/2023 09:15:00 AM Scheduled Provider:Dandre Burger MD [facility] App[facility] Type: Open Appointment Date:05/05/2024 11:00:00 AM Scheduled Provider: Location:[facility] Appointment Type:FM Medicare Wellness Subsequent Diagnostic Tests PendingHCV Antibody RFX to Quant PCR 05/05/23 [facility] Evaluation + Plan note Future Appointments Appointment Date:04/04/2024 07:15:00 AM Scheduled Provider:Dandre Burger MD [facility] App[facility] Type: Open Appointment Date:05/11/2024 08:00:00 AM Scheduled Provider: Location:[facility] Appointment Type: Medicare Wellness Subsequent [facility] Evaluation + Plan note Future Appointments Appointment Date:05/11/2024 08:00:00 AM Scheduled Provider: Location:[facility] Appointment Type: Medicare Wellness Subsequent Appointment Date:06/29/2024 08:15:00 AM Scheduled Provider:Dandre Burger MD [facility] Appointment Type: Open [facility] Evaluation + Plan note Future Appointments Appointment Date:06/29/2024 08:15:00 AM Scheduled Provider:Dandre Burger MD [facility] Appointment Type: Open Appointment Date:05/14/2025 08:00:00 AM Scheduled Provider: Location:[facility] Appointment Type: Medicare Wellness Subsequent Future Scheduled TestsCT Chest, Low Dose Screening 05/16/24 [facility] Evaluation + Plan note Future Appointments Appointment Date:06/29/2024 08:15:00 AM Scheduled Provider:Dandre Burger MD [facility] Appoint[facility] Type: Open Appointment Date:05/14/2025 08:00:00 AM Scheduled Provider: [facility] Appointment Type: Medicare Wellness Subsequent [facility] Evaluation + Plan note Future Appointments Appointment Date:09/28/2024 07:40:00 AM Scheduled Provider:Dandre Burger MD [facility] Appointment Type: Open Appointment Date:05/14/2025 08:00:00 AM Scheduled Provider: [facility] App[facility] Type: Medicare Wellness Subsequent [facility] Evaluation note Diagnosis Sensorineural hearing loss (SNHL) of both ears- Primary [facility] No data available for this section [facility] No data available for this section [facility] No data available for this section [facility] Summary Purpose Family History No Family History Records FoundNo Family History Records Found No data available for this section No data available for this section No data available for this section No Family History Records Found No data available for this section No data available for this section No Family History Records Found No data available for this section No data available for this section No Family History Records Found No data available for this section No Family History Records FoundNo Family History Records Found Advance Directives No Advanced Directives Records FoundNo Advanced Directives Records FoundNo Advanced Directives Records FoundNo Advanced Directives Records FoundNo Advanced Directives Records FoundNo Advanced Directives Records FoundNo Advanced Directives Records Found Hospital Course Note MR#: [id number] [facility] Pt. Name: Pato Corral Admitted: 03/20/2018 Discharged: [...] (more content not included)... Note MR#: [id number] [facility] Pt. Name: Pato Corral Admitted: 04/25/2018 [...] and content) DATE CREATED AUTHOR 05/17/2018 [facility] DATE CREATED AUTHOR AUTHOR'S ORGANIZ ATION 07/29/2022 [facility] DATE CREATED AUTHOR AUTHOR'S ORGANIZ ATION 05/20/2023 [facility] dical [facility] DATE CREATED AUTHOR AUTHOR'S ORGANIZ ATION 05/13/2024 Van[place] [facility] DATE CREATED AUTHOR AUTHOR'S ORGANIZ ATION 07/01/2024 [place] [facility] DATE CREATED AUTHOR AUTHOR'S ORGANIZ ATION 09/30/2024 [place] [facility] DATE CREATED AUTHOR AUTHOR'S ORGANIZ ATION 11/04/2024 [facility] Patient Care team informatio n (unrecognized section and content) Hand Almond Blancher Relationship Specialty Start Date End Date Gianfranco Lau MD [address] [id number] PCP - General Family Medicine 09/08/22 Reason [...] BE BASED ON THE PRIMARY CLINICAL RECORDS. [facility] provides no warranty or guarantee of the accuracy or completeness of information in this document.
--- NOTE | 2024-11-29 07:00 | CA_ITS ---
Patient Name: PATO HAN MR#: [id number] : 1960 Exam Date: 11/29/2024 Ordering Doctor: RAJINDER MOHAMUD CNP ECHOCARDIOGRAM REPORT PROCEDURE: CA ECHO DOPPLER COMPLETE INDICATIONS: Hypertension, CABG COMPARISON: None. DESCRIPTION: COMPLETE ECHOCARDIOGRAM Real-time transthoracic echocardiography with 2D, M-mode, spectral and color flow Doppler performed. QUALITY: Technical quality was good. LEFT VENTRICLE: Normal chamber size. Thickened septal wall. LV EF: Global left ventricular systolic function is normal; visually estimated ejection fraction 55-60%. No wall motion abnormalities. DIASTOLIC: Normal diastolic function. ATRIAL SEPTUM: Inadequately seen. LEFT ATRIUM: Mild dilatation. RIGHT ATRIUM: Normal chamber size. RIGHT VENTRICLE: Normal chamber size. Normal right ventricular systolic function. TRICUSPID VALVE: Normal mobility and thickness. No stenosis with trivial regurgitation. Unable to assess right-sided pressures due to lack of measurable tricuspid regurgitation. MITRAL VALVE: Normal mobility and thickness. No evidence of mitral valve stenosis. There is no mitral annular calcification. Trivial mitral regurgitation. AORTIC VALVE: Normal trileaflet appearance. Thickened aortic valve. Normal leaflet mobility. No evidence of aortic valve stenosis. No aortic regurgitation. AORTIC ROOT: Normal diameter and appearance. PULMONIC VALVE: Normal thickness and mobility. No stenosis. Trivial regurgitation. PERICARDIUM: No evidence of pericardial effusion. IVC: Collapses with inspiration. Normal size. CONCLUSION: 1. Global left ventricular systolic function is normal; visually estimated ejection fraction is 55 to 60% 2. Normal right ventricular size and systolic function 3. Normal diastolic function 4. The left atrium is mildly dilated 5. No significant valvular abnormalities Adult Echocardiography Procedure Report Left Ventricle LVEDD (3.7 - 5.6 cm): 3.73 cm LVESD (2.2 - 4.0 cm): 2.65 cm LVIVS thickness (0.6 - 1.2 cm): 1.44 cm LVPW thickness (0.5 - 1.0 cm): 0.95 cm e': 0.12 m/s E - e': 5.55 LVOT Max Gradient: 3.84 mm[Hg] LVOT Area (cm2): 0.98 m/s Peak Velocity (LVOT): 0.98 m/s Mean Velocity (LVOT): 0.64 m/s LVOT Diameter 2.15 cm Left Ventricular Ejection Fraction: 58.87 % Left Atrium LA Volume Index (2D A2C): 45.00 ml/m2 Left Atrium Systolic Dimension: 3.93 cm Mitral Valve MV E to A Ratio: 0.67 Mitral Valve A-Wave Peak Velocity: 1.02 m/s Mitral Valve E-Wave Peak Velocity: 0.68 m/s Right Ventricle RV Internal Diastolic Dimension: 3.26 cm Aorta AO Root Diam: 3.06 cm Ascending Ao Diam: 3.01 cm Aortic Valve AoV Area (Peak Moy): 2.86 cm2, 2.86 cm2 AoV Area (VTI): 3.12 cm2, 3.12 cm2 Peak Velocity(Antegrade Flow): 1.24 m/s Peak Gradient(Antegrade Flow): 6.20 mm[Hg] Mean Velocity(Antegrade Flow): 0.82 m/s Mean Gradient(Antegrade Flow): 3.09 mm[Hg] Velocity Time Integral: 23.86 cm Tricuspid Valve Peak Velocity (Regurgitant Flow): Pulmonic Valve Mean Gradient: 1.79 mm[Hg], 2.09 mm[Hg] Mean Velocity: 0.63 m/s, 0.67 m/s Peak Velocity: 0.97 m/s Peak Gradient: 3.47 mm[Hg], 4.10 mm[Hg] Right Atrium Right Atrium Systolic Pressure: 37.92 ml, 37.92 ml Dictated by: Ayala Recio M.D. on 11/29/2024 at 12:29 Approved by: Ayala Recio M.D. on 11/29/2024 at 12:33
== END 2024-11-29 06:46 | disposition home or self-care (01) ==
LOC: CARD 06:45
PROVIDERS: PCP Nurse Practitioner Family; Visit Provider Nurse Practitioner Family
DX: I25.10 Atherosclerotic heart disease of native coronary artery without angina pectoris (principal); Z95.1 Presence of aortocoronary bypass graft; I10 Essential (primary) hypertension
CPT/HCPCS: 93306

== ENCOUNTER 2025-01-12 15:34 | Outpatient (OUT) | payer MEDICARE, MEDICAID, SELFPAY ==
--- OUTSIDE RECORDS SUMMARY | 2025-01-12 15:40 | XMS_ITS | Clinical Summary ---
Author Organization [employer] tem Address [id number] [place] [address] Care Team Providers Care Glass Sander Name Role Phone Gianfranco Baker DO Primary Care Provider [phone] Allergies No known active allergies Medications MedicationSigDispense QuantityRefillsLast FilledStart DateEnd DateStatus aspirin 81 mg Take 81 mg by mouth daily.Active lisinopril (PRINIVIL,ZESTRIL) 20 mg tablet Take 5 mg by mouth daily.Active amLODIPine (NORVASC) 10 mg tablet Take 10 mg by mouth daily.Active sitaGLIPtin-metFORMIN (JANUMET) 50-1,000 mg per tablet Take 1 tablet by mouth 2 (two) times a day with meals.Active venlafaxine XR (EFFEXOR-XR) 150 mg 24 hr capsule Take 150 mg by mouth daily.Active CYANOCOBALAMIN, VITAMIN B-12, INJ Inject as directed every 14 (fourteen) days.Active OXcarbazepine (TRILEPTAL) 300 mg tablet Take 600 mg by mouth 2 (two) times a day.Active DULoxetine (CYMBALTA) 60 mg capsule Take 60 mg by mouth daily.Active atorvastatin (LIPITOR) 80 mg tablet Take 80 mg by mouth daily.Active clopidogrel (PLAVIX) 75 mg tablet Take 75 mg by mouth daily.Active carvedilol (COREG) 12.5 mg tablet Take 12.5 mg by mouth 2 (two) times a day with meals.Active docusate sodium (COLACE) 100 mg capsule Take 100 mg by mouth daily.Active ferrous sulfate 325 (65 FE) mg tablet Take 325 mg by mouth 3 (three) times a day with meals.Active furosemide (LASIX) 40 mg tablet Take 40 mg by mouth daily.Active potassium chloride 20 mEq tablet extended release Take 20 mEq by mouth daily.Active amiodarone (PACERONE) 200 mg tablet Take 200 mg by mouth daily.Active Active Problems ProblemNoted DateDiagnosed DateFacial bones, closed sqjfcwym17/04/2018 Social History Tobacco UseTypesPacks/DayYears UsedDateSmoking Tobacco: Every DayCigarettes Smokeless Tobacco: Never Tobacco Cessation:Ready to Q uit: No Comments:pt declined resources, smoked 2 today Alcohol UseStandard Drinks/WeekCommentsNo0 (1 standard drink = 0.6 oz pure alcohol)AUDIT-CAnswerDate RecordedFrequency of Alcohol ConsumptionNever 08/15/2019Average Number of DrinksNot on file08/15/2019Frequency of Binge DrinkingNot on file08/15/2019ChildcareAnswerDate RecordedChildcareUnknown 08/24/2018EmploymentAnswerDate WrxqslgfDzppgcfrpsFvwcgld39/12/2019Purpose - Life AnswerDate RecordedPurpose and direction in qaydNxljbzx34/11/2021 CommentsNoSex and Gender InformationValueDate RecordedSex Assigned at BirthNot on fileLegal UhrKhycao36/06/2015 11:51 AM EDTGender IdentityNot on fileSexual OrientationNot on file Last Filed Vital Signs Vital SignReadingTime TakenCommentsBlood Aimwileu108/8006 10:29 AM EDT Iwwql8890 10:29 AM IOIMbqkiahpxmd32.1 ??C (98.7 ??F)08/16/2019 10:29 AM EDTRespiratory Cate8265 10:29 AM EDTOxygen Gdldtxulku04%08/16/2019 10:29 AM EDTInhaled Oxygen Concentration--Cniipv86.9 kg (185 lb)08/16/2019 10:29 AM ZGGTfjhmc763.9 cm (5' 1 )08/16/2019 10:29 AM EDTBody Mass Index34.9608/16/2019 10:29 AM EDT Plan of Treatment Health MaintenanceDue DateLast DoneCommentsDepression Qiqvfpouh47/21/1971Tobacco Suaykwgkp79/21/1971Adult BMI Qjvdjigpt25/21/1977DTaP,Tdap and Td Vaccines (1 - Tdap)1977Zoster (Shingles) Vaccine (1 of 2)2008Fall Risk Screening 07/04/2023Influenza Epvegsv7111/13/2024 Medical Devices Not on file Insurance Advance Directives * Full Code (Latest Code Status on File) Date ActivatedDate JydlmujamqtGftdquck16/4/2018 1:27 AM01/18/2018 7:48 PM Care Teams Team MemberRelationshipSpecialtyStart DateEnd Date Gianfranco Baker DO PCP - Ivorgob07/4/18
--- OUTSIDE RECORDS SUMMARY | 2025-01-12 15:40 | XMS_ITS | Clinical Summary ---
Author Organization [facility] Address [address] [place] [address] Care Team Providers Care Steel Worker Name Role Phone Gianfranco Baker MD Primary Care Provider [phone] Social History Tobacco UseTypesPacks/DayYears UsedDateSmoking Tobacco: Never Assessed CommentsUnknownSex and Gender InformationValueDate RecordedSex Assigned at Not on fileLegal LsnYwbbcu01/15/2023 6:43 PM EDTGender IdentityNot on fileSexual OrientationNot on file Last Filed Vital Signs Vital SignReadingTime TakenCommentsBlood Afmlaicw121/9010 12:00 PM EDT Pulse--Temperature--Respiratory Rate--Oxygen Saturation--Inhaled Oxygen Concentration--Vtohfd26 kg (183 lb)09/12/2019 12:00 PM NEZZvvmpx079.5 cm (5' 2 ) 12/26/2019 12:00 PM EDTBody Mass Index33.47009/12/2019 12:00 PM EDT Plan of Treatment Not on file Insurance * Guarantor: Jaclyn Corral TypeRelation to PatientDate of BirthPhone Billing AddressPersonal/LcrqyuBkiq02/21/1961 [address] [place] [address] Care Teams Team MemberRelationshipSpecialtyStart Date Gianfranco Baker MD [facility]09/08/22
--- OUTSIDE RECORDS SUMMARY | 2025-01-12 15:40 | XMS_ITS | Clinical Summary ---
Author Organization [facility] Address [address] [place] [address] Care Team Providers Care Fur Trimming Machine Operator Name Role Phone Magda Mccann PUNEET Primary Care Provider [phone] Allergies No known active allergies Medications MedicationSigDispense QuantityRefillsLast FilledStart DateEnd DateStatus isosorbide mononitrate ER (Imdur) 30 mg 24 hr tablet Indications:Chest pain, unspecified typetake 1 tablet by mouth once daily 90 tablet 07/22/2022ctive Janumet 50-1,000 mg tablet Take 1 tablet by mouth in the morning and at bedtime.08/31/2022ctive DULoxetine (Cymbalta) [address] capsule Take 60 mg by mouth in the morning.07/24/2022ctive buPROPion SR (Wellbutrin SR) 150 mg 12 hr tablet Take 150 mg by mouth in the morning.09/02/2022ctive atorvastatin (Lipitor) 80 mg tablet Take 80 mg by mouth in the morning.09/25/2022ctive amLODIPine (Norvasc) 5 mg tablet Take 5 mg by mouth.07/31/2022ctive gabapentin (Neurontin) 400 mg capsule Take 400 mg by mouth in the morning, at noon, and at bedtime.09/25/2022ctive aspirin 81 mg EC tablet Take 81 mg by mouth.07/31/2022ctive glimepiride (Amaryl) 4 mg tablet Take 4 mg by mouth in the morning and at bedtime.09/28/2022ctive Lantus Solostar U-100 Insulin 100 unit/mL (3 mL) pen Inject 100 mL under the skin in the morning and at bedtime.08/30/2022ctive carvedilol (Coreg) 25 mg tablet Indications:Essential hypertensionTake 1 and 1/2 tablets by mouth twice daily 270 tablet ctive dulaglutide (Trulicity) 1.5 mg/0.5 mL pen injector Inject 1.5 mg under the skin.06/08/2023ctive lisinopril 2.5 mg tablet Take 2.5 mg by mouth in the morning.04/10/2024tive alendronate (Fosamax) 70 mg tablet Take 70 mg by mouth every 7 (seven) days.08/08/2024tive traMADol (Ultram) 50 mg tablet Take 50 mg by mouth if needed.08/31/2024tive Active Problems ProblemNoted DateDiagnosed DateFormer gvzeio8608/23/2024Major depressive disorder, single episode, ihyuxeyb52/11/2025 Overview (08/23/2024): added per 09/30/2021 query response. Uaojvncqhcak07/11/2025ack pain09/13/2023igarette nicotine kjmrxornef25/01/2024 Diabetic xxqzugpvodv49/01/2024HA (headache)09/13/2023Long term current use of szpqzsn2909/13/2023 Overview (09/13/2023): Current Medication List includes Lantus. added per outpatient CDI policy. Jjjopgtwiugg40/01/2024ost-nasal drip09/13/2023MI 36.0-36.9,adult09/29/2022 09/29/2022hronic obstructive pulmonary bsfiokm98epression KD (chronic kidney disease)Family history of colon uyejgb13Hearing loss Ztquneunnoncuh02OSA (obstructive sleep apnea)09/29/2022 09/29/20222743Cummlybzjylvzl08/18/202307/18/7211Dxoainnecvo36 Screening for malignant neoplasm of colonSmoker09/29/2022 09/29/2022History of coronary artery bypass lnbttpn4808/09/2019Coronary artery disease involving pai[place]-shoshone coronary artery of pai[place]-shoshone heart without angina pectoris 08/09/2019History of renal gxginqw7404/11/2018Essential ssylccwqhyes62/28/2019 Diabetes djvondws36/28/2019Facial bones, closed oixverro93 Abnormal finding on MRI of brainNeuropathic pain05/12/2016 09/29/2022 Encounters DateTypeDepartmentCare JctqTogjxizulon67/08/2025Telephone [address] [facility] [place] [address] Isaura Moody MA 11/30/2024Results Follow-Up [address] [place] [address] Arina Whittaker CNP Complete Echo (TTE) w/wo Imaging Agent, Strain, 3D, Bubble Study11/29/2024Orders Only [address] [place] [facility] [place] [address] ProviderRadha MD 11/02/2024 9:00 AM EDTOffice Visit [address] [place] [address] Arina Whittaker, FOX Coronary artery disease involving pai[place]-shoshone coronary artery of paiute[place]shoshone heart without angina pectoris (Primary Dx); History of coronary artery bypass surgery; Essential hypertension; Mixed ovsnrdqbmojtrg99/21/2025Telephone [address] [place] [address] Jeane Driscoll MA from Last 3 Months Immunizations ImmunizationAdministration DatesNext Danny, Rwhglschewx94/09/2022,05/29/2021 Family History Medical HistoryRelationNameCommentsCoronary artery diseaseFatherRelationName StatusCommentsFatherDeceasedMotherAlive Social History Tobacco UseTypesPacks/DayYears UsedDateSmoking Tobacco: FormerCigarettes Smokeless Tobacco: Never Tobacco Cessation:Counseling Given: Not Answered Alcohol UseStandard Drinks/WeekCommentsNot Currently0 (1 standard drink = 0.6 oz pure alcohol)UT Safety & EnvironmentAnswerDate RecordedFear of Current or Ex-PartnerNot on file05/06/2023Emotionally AbusedNot on file05/06/2023hysically AbusedNot on file05/06/2023Sexually AbusedNot on file05/06/2023hysically or Sexually AbusedNot on file05/06/2023CommentsUnknownSex and Gender InformationValueDate RecordedSex Assigned at MdraaXtffkb03/14/2025 8:37 AM EDT Legal IdvQzthrm79/30/2022 12:09 AM EDTGender QyjuktcmElyirj13/14/2025 8:37 AM EDTSexual OrientationHeterosexual or Lgopiuhd98/14/2025 8:37 AM EDT Last Filed Vital Signs Vital SignReadingTime TakenCommentsBlood Tyifgutd945/75011/02/2024 8:55 AM EDT Imifw978811/02/2024 8:55 AM EYCGiubtoklich25.4 ??C (97.5 ??F)06/01/2018 9:38 AM EDTRespiratory Rate--Oxygen Ulewkjxdrk52%11/02/2024 8:55 AM EDTInhaled Oxygen Concentration--Anovzl25.8 kg (176 lb)11/02/2024 8:55 AM HNXUlfqgs957.5 cm (5' 2 )11/02/2024 8:55 AM EDTBody Mass Index32.19011/02/2024 8:55 AM EDT Plan of Treatment Health MaintenanceDue DateLast DoneCommentsCT Kragzyvtfayd39/21/1959FIT-DNA 1958FIT1958FOBT1958Medicare Annual Wellness (AWV)1960 Kqnfbychvssvg76/21/1959Diabetes: Retinopathy Izloofmsn37/21/1969Depression Ngjdtevit37/21/1971Pneumococcal Vaccine: 50+ Years (1 of 2 - PCV)1977Adult Wdcqopr8607/03/19807837Hfpeqpqlx85/21/1999Diabetes: Hemoglobin A1C Fall Risk Oggqqgelx04/21/2024COVID-19 Vaccine ( - season)2024 03/01/2021, 06/28/2020, 05/31/2020Influenza Vaccine (#1), 12/28/20220849Mqdidzwcuuw73Colorectal Cancer Nfzpqxzzn90/20/2027 Zoster YlpwdkyqFnoidfqbb25/09/2022, 05/29/2021HIB VaccinesAged OutNo longer eligible based on patient's age to complete this topicHPV VaccinesAged OutNo longer eligible based on patient's age to complete this topicIPV VaccinesAged OutNo longer eligible based on patient's age to complete this topicMeningococcal B VaccineAged OutNo longer eligible based on patient's age to complete this topicMeningococcal VaccineAged OutNo longer eligible based on patient's age to complete this topicRotavirus VaccinesAged OutNo longer eligible based on patient's age to complete this topic Procedures Procedure NamePriorityDate/TimeAssociated DiagnosisCommentsCOMPLETE TRANSTHORACIC ECHO (TTE) W/WO IMAGING AGENT, STRAIN, 3D, BUBBLE STUDYRoutine 11/29/2024 1:03 PM EDT HEMOGLOBIN L9SRqtmlbc02/07/2019 4:47 AM EST from Last 3 Months or Most Recently Relevant to Health Maintenance Results * Complete Echo (TTE) w/wo Imaging Agent, Strain, 3D, Bubble Study (11/29/2024 1:03 PM EDT)Anatomical RegionLateralityModalityUltrasound Narrative Authorizing ProviderResult TypeResult StatusHistorical Provider MDCV ECHO PROCEDURESFinal Result * (ABNORMAL) Hemoglobin A1C (03/21/2018 4:47 AM EST)ComponentValueRef RangeTest MethodAnalysis TimePerformed AtPathologist SignatureHemoglobin A1C6.8(H)4.0 - 6.0 %LAB CONVERSIONSEstimated Average Adidtyi065(H)70 - 126 mg/dLLAB CONVERSIONSSpecimen (Source)Anatomical Location / LateralityCollection Method / VolumeCollection TimeReceived Time03/21/2018 4:47 AM EST03/21/2018 8:41 AM EST Narrative LAB CONVERSIONS - 03/21/2018 1:14 PM EST Yes: Add to Previous draw if able Authorizing ProviderResult TypeResult StatusZohaib Alina MACIAS BLOOD ORDERABLES Final ResultPerforming OrganizationAddressCity/State/ZIP CodePhone Number LAB CONVERSIONS from Last 3 Months or Most Recently Relevant to Health Maintenance Insurance * Guarantor: Jaclyn CorralAccount TypeRelation to PatientDate of PhoneBilling AddressPersonal/QdmtimPleo90/21/1961 [address] [place] [address] Care Teams Team MemberRelationshipSpecialtyStart DateEnd Date Magda Mccann FNP [address] [place] [id number] PCP - GeneralNurse Practitioner11/01/24
--- OUTSIDE RECORDS SUMMARY | 2025-01-12 15:40 | XMS_ITS | Clinical Summary ---
Author Organization [facility] Address [address] [place] [id number] Care Team Providers Care Machine Sander Name Role Phone Samuel Swain DO, Charles P Primary Care Provider + Allergies No known active allergies Medications MedicationSigDispense QuantityRefillsLast FilledStart DateEnd DateStatus aspirin, enteric coated (ASPIRIN, ENTERIC COATED) 81 mg EC tablet Take 81 mg by mouth once daily.Active lisinopril (ZESTRIL, PRINIVIL) 20 mg tablet Take 20 mg by mouth once daily.Active amLODIPine (NORVASC) 10 mg tablet Take 10 mg by mouth once daily.Active meloxicam (MOBIC) 15 mg tablet Take 15 mg by mouth once daily.Active sitaGLIPtin-metFORMIN (JANUMET XR) 100-1,000 mg TM24 Take by mouth twice daily.Active venlafaxine XR (EFFEXOR XR) 150 mg 24 hr capsule Take 150 mg by mouth once daily.Active cyanocobalamin (VITAMIN B-12) 1,000 mcg/mL soln Inject 1,000 mcg intramuscularly once every month.Active OXcarbazepine (TRILEPTAL) 300 mg tablet Take 300 mg by mouth twice daily.Active SUMAtriptan (IMITREX) 50 mg tablet Take 50 mg by mouth as needed.Active Active Problems ProblemNoted DateDiagnosed DateNeuropathic pain05/12/2016Abnormal finding on MRI of brain05/12/2016 Family History Medical HistoryRelationCommentsHeartFatherdied of MIHypertensionFatherCancer Maternal Grandmothercolon and liverdiverticulitisMotherCancerOtherbrain, lung RelationStatusCommentsFatherMaternal GrandmotherMotherOther Social History Tobacco UseTypesPacks/DayYears UsedDateSmoking Tobacco: Every [id number] Smokeless Tobacco: NeverAlcohol UseStandard Drinks/WeekCommentsNo0 (1 standard drink = 0.6 oz pure alcohol)CommentsUnknownSex and Gender Information ValueDate RecordedSex Assigned at BirthNot on fileLegal HdpNuqpby69/24/2017 11:17 AM ESTGender IdentityNot on fileSexual OrientationNot on file Last Filed Vital Signs Vital SignReadingTime TakenCommentsBlood Qutxbxxi248/7305/12/2016 2:36 PM EST Dyzje801105/12/2016 2:36 PM ESTTemperature--Respiratory Zput525605/12/2016 2:36 PM ESTOxygen Saturation--Inhaled Oxygen Concentration--Uwbquy78.6 kg (177 lb 9.6 oz)05/12/2016 2:36 PM YSMTdeyng930.5 cm (5' 2 )05/12/2016 2:36 PM ESTBody Mass Index32.48005/12/2016 2:36 PM EST Plan of Treatment Health MaintenanceDue DateLast DoneCommentsAnxiety Xgnlhowil12/21/1977Depression Fjgnkxdsc82/21/1977Hepatitis C Oayoouvdb03/21/1977DTaP,Tdap,Td Vaccine (1 - Tdap)1977Mammogram Jqykcdzbn20/21/1999CT Hftzggqzlclr77/21/2004Cologuard (FIT-DNA)07/04/20039002Drrlcqujteq21/21/2004Colorectal Cancer Frouvmvyj93/21/2004 Diabetes Uqtdrfowo79/21/2004Fecal Occult Blood07/04/2003Lipid Screening 07/04/20037957Jrhpsgaeemgtn96/21/2004Pneumococcal Vaccine: 50+ (1 of 1 - PCV) 2008Shingrix Vaccine (1 of 2)2008one Density Poobxidms22/21/2024 Advance Directive Qxhjagqexj00/01/2025ovid-19 Vaccine (1 - 2024- season) 2024Influenza Vaccine (#1)2024RSV Vaccine (1 - 1-dose 75+ series) 2033 Insurance Care Teams Team MemberRelationshipSpecialtyStart DateEnd Gianfranco Baker Sr., DO PCP - GeneralFamily Medicine05/08/16
--- OUTSIDE RECORDS SUMMARY | 2025-01-12 15:40 | XMS_ITS | Clinical Summary ---
Author Organization [facility] Address [address], [address] [place] [address] Care Team Providers Care Scientific Advisor Name Role Phone Gianfranco Baker DO Primary Care Provider [phone] Allergies No known active allergies Medications MedicationSigDispense QuantityRefillsLast FilledStart DateEnd DateStatus sitaGLIPtan-metformin (JANUMET) 50-1000 MG per tablet Take 1 tablet by mouth 2 times daily (with meals).Active acetaminophen (TYLENOL) 325 MG tablet Take 650 mg by mouth every 6 hours as needed for Pain.Active Social History Tobacco UseTypesPacks/DayYears UsedDateSmoking Tobacco: Every DayCigarettes Alcohol UseStandard Drinks/WeekCommentsNo0 (1 standard drink = 0.6 oz pure alcohol)CommentsNoSex and Gender InformationValueDate RecordedSex Assigned at BirthNot on fileLegal OowKdibad58/03/2014 12:56 AM EDTGender IdentityNot on fileSexual OrientationNot on file Last Filed Vital Signs Vital SignReadingTime TakenCommentsBlood Wgvrcndz018/9110/15/2013 1:03 AM EDT Qtepa4917 1:03 AM JDJVtzapaxvxsa28.2 ??C (97.1 ??F)10/15/2013 1:03 AM EDTRespiratory Tdmo5465 1:03 AM EDTOxygen Boubmgbkfd07%10/15/2013 1:03 AM EDTInhaled Oxygen Concentration--Wfearc23.5 kg (173 lb)10/15/2013 1:03 AM EDT Vcvbcf414.5 cm (5' 2 )10/15/2013 1:03 AM EDTBody Mass Index31.64010/15/2013 1:03 AM EDT Plan of Treatment Not on file Care Teams Team MemberRelationshipSpecialtyStart DateEnd Date House, Gianfranco Ha DO [address] [place] [address] PCP - General10/15/13
--- OUTSIDE RECORDS SUMMARY | 2025-01-12 15:41 | XMS_ITS | CCD ---
Author Organization [facility] CliniSymn Care Team Providers Care Commercial Hvac Service Technician Name Role Phone PHYSICIAN, DEFAULT Admitting Unavailable PHYSICIAN, DEFAULT Attending Unavailable James Live Admitting Unavailable ANDREI TSE Referring Unavailable SYLACAUGA, GIANFRANCO Primary Care Unavailable CATE RAMIREZ Attending Unavailable FELIPE HUGO Admitting Unavailable HOUSE, GIANFRANCO Referring Unavailable HOUSE, GIANFRANCO Primary Care Unavailable Bernardo, Karen Attending Unavailable [place] Procedure Practitioner Unavailab le Azie, Karen Surgeon Unavailable [place] Procedure Practitioner Unavailab le UNKNOWN, PROVIDER Surgeon Unavailable [place] Procedure Practitioner Unavailab le OANH, WANG R Surgeon Unavailable [place] Procedure Practitioner Unavailab le PHILIPPE MIRANDA Surgeon Unavailable RAJINDER OMHAMUD Admitting Unavailable [place], DR ART June Consulting Unavailable SYLACAUGA, DR BECERRA Primary Care Unavailable RAJINDER MOHAMUD Attending Unavailable RAJINDER MOHAMUD Consulting Unavailable IDALIA, DR LUIS Santa Admitting Unavailabl e SID, DR BECERRA Primary Care Unavailable IDALIA, DR LUIS Santa Attending Unavailabl e IDALIA, DR LUIS Santa Consulting Unavailabl e NefPaolo mayer Consulting Unavailable UNLUSAVITA Consulting Unavailable SYLACAUGA, DR BECERRA Attending Unavailable SYLACAUGA, DR BECERRA Admitting Unavailable SYLACAUGA, DR BECERRA Consulting Unavailable SYLACAUGA, DR BECERRA Primary Care Unavailable ROMAN, DR ISI Barajas Consulting Unavailable SYLACAUGA, DR BECERRA Admitting Unavailable SYLACAUGA, DR BECERRA Attending Unavailable SYLACAUGA, DR BECERRA Consulting Unavailable SYLACAUGA, DR BECERRA Primary Care Unavailable SYLACAUGA, DR BECERRA Admitting Unavailable SYLACAUGA, DR BECERRA Attending Unavailable SYLACAUGA, DR BECERRA Consulting Unavailable SYLACAUGA, DR BECERRA Primary Care Unavailable Dandre Burger Primary Care Physician [phone] Gianfranco Lau MD Primary Care Provider SEAN VALIENTE Attending Unavailable SEAN VALIENTE Attending Unavailable Dandre Burger Attending Unavailable Dandre Burger Attending Unavailable Dandre Burger Attending Unavailable Dandre Burger Admitting Unavailable Dandre Burger Attending Unavailable Dandre Burger Attending Unavailable Dandre Burger Attending Unavailable JANET KEEN Attending Unavailable Dandre Burger Attending Unavailable Dandre Burger Attending Unavailable Dandre Burger Attending Unavailable Dandre Burger Admitting Unavailable Dandre Burger Attending Unavailable Dandre Burger Attending Unavailable Dandre Burger Admitting Unavailable Dandre Burger Attending Unavailable JANET KEEN Attending Unavailable MD Dandre Burger Attending Unavailable JANET KEEN A Attending Unavailable JANET KEEN A Attending Unavailable MD Dandre Burger Referring Unavailable MD Dandre Burger Admitting Unavailable MD Dandre Burger Attending Unavailable MD Dandre Burger Admitting Unavailable MD Dandre Burger Attending Unavailable MD Dandre Burger Referring Unavailable JANET KEEN A Admitting Unavailable JANET KEEN A Attending Unavailable MD Dandre Burger Admitting Unavailable MD Dandre Burger Attending Unavailable Hamzah Dereck [employer] Attending Provider [phone] [facility] Primary [facility] Provider RAJINDER MOHAMUD Attending Unavailable Janet Keen Primary Care Unavailable Dereck Goodson Attending Unavailable Dereck Goodson Admitting Unavailable Allergies Allergy ClassificationReported Allergen(s)Allergy TypeDate of OnsetReaction(s) Facility (3 sources)No Known Medication Allergies; Translations: [No Known Medication Allergies]Propensity to adverse reactions (disorder)[facility] Repository Medications Current Medications MedicationDrug Class(es)DatesSig (Normalized)Sig (Original)alendronic acid 70 mg oral tablet (5 sources)BisphosphonateStart: 89-72-8535qzjo 1 tablet by mouth every week Start: 12-82-5719ozykjolyqfj 70 mg Tab See Instructions, TAKE 1 TABLET BY MOUTH ONCE WEEKLY ON AN EMPTY STOMACH BEFORE BREAKFAST. REMAIN UPRIGHT FOR 30 MINUTES AND TAKE WITH 8 OUNCES OF WATER, # 12 tab(s), Refills(s)0, Pharmacy: [facility] [id number], 161.5, cm, 06/29/24 7:50:00 EDT, Height/Length Dosing, 78.4, kg, 06/29/24 7:50:00 EDT, Weight Dosing Start Date: 08/08/24 Status: Ordered Quantity: 12.0 Unit: tab(s) Repeat number: 1Start: 87-65-5672Rfeauiz 70 mg Tab 70 mg = 1 tab(s), Oral, q7day, # 12 tab(s), Refills(s) 0, Pharmacy: [facility] [id number], 161.5, cm, 05/11/24 8:32:00 EST, Height/Length Dosing, 79.8, kg, 05/11/24 8:32:00 EST, Weight Dosing Start Date: 05/11/24 Status: Ordered Quantity: 12.0 Unit: tab(s) Repeat number: 1 Indication: Age-related osteoporosis without current pathological fractureamLODIPine 5 mg oral tablet (3 sources)Dihydropyridine Calcium Channel BlockerStart: 35-88-3742sngh 1 tablet by mouth once dailyamLODIPine 5 mg Tab 5 mg = 1 tab(s), Oral, Daily, Refills(s) 0 Start Date: 07/31/22 Status: Orderedaspirin 81 mg delayed release oral tablet (10 sources)Platelet Aggregation Inhibitor, Nonsteroidal Anti-inflammatory Drug Start: 61-85-7066dwno 1 tablet by mouth once dailyStart: 96-86-8891wgca 1 tablet by mouth once dailyaspirin 81 mg Oral EC Tab 81 mg = 1 tab(s), Oral, Daily, Refills(s) 0 Start Date: 07/31/22 Status: Ordered Repeat number: 1atorvastatin 80 mg oral tablet (10 sources)HMG-CoA Reductase InhibitorStart: 47-68-7484zdna 1 tablet by mouth once dailyStart: 12-93-2913esdv 1 tablet by mouth once dailyatorvastatin 80 mg Tab 80 mg = 1 tab(s), Oral, Daily, # 90 tab(s), Refills(s) 3, Pharmacy: [facility] [id number], 160, cm, 10/04/23 8:29:00 EDT, Height/Length Dosing, 83, kg, 10/04/23 8:29:00 EDT,Weight Dosing Start Date: 12/28/23 Status: Ordered Quantity: 90.0 Unit: tab(s) Repeat number: 4Start: 59-00-8779ccfi 1 tablet by mouth once dailyatorvastatin 80 mg Tab 80 mg = 1 tab(s), Oral, Daily, Refills(s) 0 Start Date: 07/31/22 Status: Mmlzhqz59 hr buPROPion hydrochloride 150 mg extended release oral tablet (10 sources)AminoketoneStart: 36-50-5615ibrf 1 tablet by mouth once daily in the morningStart: 74-84-1432cgfp 1 tablet by mouth once dailyWellbutrin SR 150 mg Tab-ER 150 mg = 1 tab(s), Oral, Daily, # 90 tab(s), Refills(s) 1, [facility] [id number], 160, cm, 01/04/24 7:21:00 EDT, Height/Length Dosing, 78.7, kg, 01/04/24 7:21:00 EDT, Weight Dosing Start Date: 02/21/24 Status: Ordered Quantity: 90.0 Unit: tab(s) Repeat number: 2Start: 26-67-6734xgvp 1 tablet by mouth once dailyWellbutrin SR 150 mg Tab-ER 150 mg = 1 tab(s), Oral, Daily, # 90 tab(s), Refills(s) 1, Pharmacy: [facility] #[id number], 160, cm, 07/05/23 9:08:00 EDT, Height/Length Dosing, 87.5, kg, 07/05/23 9:08:00 EDT, Weight Dosing Start Date: 07/05/23 Status: OrderedStart: 78-09-5950hrwa 1 tablet by mouth once dailyWellbutrin SR 150 mg Tab-ER 150 mg = 1 tab(s), Oral, Daily, Refills(s) 0 Start Date: 07/31/22 Status: Orderedcarvedilol 25 mg oral tablet (10 sources)alpha-Adrenergic Connor, beta-Adrenergic BlockerStart: 12-07-2024 take 1 tablet by mouth twice daily at mealtimeStart: 77-57-3018yfibzvvybu 25 mg Tab See Instructions, TAKE 1 AND 1/2 TABLETS BY MOUTH TWO TIMES A DAY, # 270 tab(s), Refills(s) 0, Pharmacy: [facility] [id number], 161.5, cm, 05/11/24 8:32:00 EST, Height/Length Dosing, 79.8, kg, 05/11/24 8:32:00 EST, Weight Dosing Start Date: 06/26/24 Status: Ordered Quantity: 270.0 Unit: tab(s) Repeat number: 1Start: 38-56-2952rfcbarvsfc 25 mg Tab See Instructions, TAKE 1 AND 1/2 TABLETS BY MOUTH TWO TIMES A DAY, # 270 tab(s), Refills(s) 0, Pharmacy: [facility] [id number], 160, cm, 01/04/24 7:21:00 EDT, Height/Length Dosing, 78.7, kg, 01/04/24 7:21:00 EDT, Weight Dosing Start Date: 03/27/24 Status: Ordered Quantity: 270.0 Unit: tab(s) Repeat number: 1Start: 23-78-8742emut 5.5 tablets by mouth twice dailycarvedilol 25 mg Tab See Instructions, 1&1/2 orally twice a day, # 270 tab(s), Refills(s) 0, Pharmacy: [facility] [id number], 160, cm, 10/04/23 8:29:00 EDT, Height/Length Dosing, 83, kg, 10/04/23 8:29:00 EDT, Weight Dosing Start Date: 12/28/23 Status: OrderedStart: 46-62-4062onncmrntfr 25 mg Tab 37.5 mg = 1.5 tab(s), Oral, BID, Refills(s) 0 Start Date: 07/31/22 Status: Order edStart: 40-79-3646yynl 1 tablet by mouth twice dailycarvedilol 25 mg Tab 25 mg = 1 tab(s), Oral, BID, Refills(s) 0 Start Date: 07/31/22 Status: Ordereddocusate sodium 100 mg oral capsule (10 sources)Start: 54-16-0627rcyp 1 capsule by mouth once daily as neededStart: 83-86-3420ldhs 1 capsule by mouth once daily as needed for constipationColace 100 mg Cap 100 mg = 1 cap(s), Oral, Daily, PRN for constipation, Refills(s) 0 Start Date: 07/31/22 Status: Ordered Repeat number: 1Dulaglutide (10 sources)GLP-1 Receptor AgonistStart: 54-88-0233Uvznw: 85-95-8631Pgmuvonxnlm (Trulicity) 4.5 mg/0.5 mL pen injector Active 4.5 MG SUBCUT every week December 07, 2024 12:00am Complies with drug therapyStart: 65-28-1000rdqvzq 4.5 mg by subcutaneous injection every weekTrulicity Pen 4.5 mg/0.5 mL subcutaneous solution 4.5 mg, SubCutaneous, qWeek, # 4 EA, Refills(s) 1, Pharmacy: [facility] [id number], 161.5, cm, 06/29/24 7:50:00 EDT, Height/Length Dosing, 78.4, kg, 06/29/24 7:50:00 EDT, Weight Dosing Start Date: 07/19/24 Status: Ordered Quantity: 4.0 Unit: EA Repeat number: 2Start: 94-07-9660vvhaep 4.5 mg by subcutaneous injection every weekTrulicity Pen 4.5 mg/0.5 mL subcutaneous solution 4.5 mg, SubCutaneous, qWeek, # 4 EA, Refills(s) 1, Pharmacy: [facility] [id number], 161.5, cm, 05/11/24 8:32:00 EST, Height/Length Dosing, 79.8, kg, 05/11/24 8:32:00 EST, Weight Dosing Start Date: 05/18/24 Status: Ordered Quantity: 4.0 Unit: EA Repeat number: 2Start: 84-26-6993glwscc 4.5 mg by subcutaneous injection every weekTrulicity Pen 4.5 mg/0.5 mL subcutaneous solution 4.5 mg, SubCutaneous, qWeek, # 4 EA, Refills(s) 0, Pharmacy: [facility] [id number], 160, cm, 04/06/24 8:31:00 EST, Height/Length Dosing, 78.8, kg,04/06/24 8:31:00 EST, Weight Dosing Start Date: 04/06/24 Status: OrderedStart: 87-81-7086vxbwgn 3 mg by subcutaneous injection every weekTrulicity Pen 3 mg/0.5 mL subcutaneous solution 3 mg, SubCutaneous, qWeek, # 12 EA, Refills(s) 0, [facility] [id number], 160, cm, 10/04/23 8:29:00 EDT, Height/Length Dosing, 83, kg, 10/04/23 8:29:00 EDT, Weight Dosing Start Date: 10/04/23 Status: OrderedStart: 47-57-9380klbokj 1.5 mg by subcutaneous injection every week Trulicity Pen 1.5 mg/0.5 mL subcutaneous solution 1.5 mg, SubCutaneous, qWeek, # 12 EA, Refills(s) 0, Pharmacy: [facility] #[id number], 157.5, cm, 04/05/23 7:03:00 EST, Height/Length Dosing, 88.1, kg, 04/05/23 7:03:00 EST, Weight Dosing Start Date: 04/21/23 Status: OrderedStart: 48-14-6967nxoycm 0.75 mg by subcutaneous injection every weekTrulicity Pen 0.75 mg/0.5 mL subcutaneous solution See Instructions, inject 0.75 milligrams subcutaneously every week, # 2 mL, Refills(s) 0, Pharmacy: [facility] #[id number], 157.5, cm, 12/14/22 6:58:00 EDT, Height/Length Dosing, 88.4, kg, 12/14/22 6:58:00 EDT, Weight Dosing Start Date: 03/22/23 Status: OrderedStart: 50-72-8226gjftuh 0.75 mg by subcutaneous injection every week Trulicity Pen 0.75 mg/0.5 mL subcutaneous solution 0.75 mg, SubCutaneous, qWeek, # 4 EA, Refills(s)0, Pharmacy: [facility] #[id number], 157.5, cm, 12/14/22 6:58:00 EDT, Height/Length Dosing, 88.4, kg, 12/14/22 6:58:00 EDT, Weight Dosing Start Date: 12/14/22 Status: OrderedDULoxetine 60 mg delayed release oral capsule (7 sources)Serotonin and Norepinephrine Reuptake InhibitorStart: 36-67-5891wvlv 1 capsule by mouth once dailyStart: 73-17-4295tgtq 1 capsule by mouth once daily duloxetine 60 mg oral delayed release capsule See Instructions, TAKE 1 CAPSULE BY MOUTH DAILY, # 90cap(s), Refills(s) 0, Pharmacy: [facility] [id number], 161.5, cm, 06/29/24 7:50:00 EDT, Height/Length Dosing, 78.4, kg, 06/29/24 7:50:00 EDT, Weight Dosing Start Date: 08/21/24 Status: Ordered Quantity: 90.0 Unit: cap(s) Repeat number: 1Start: 87-64-8662rpxi 1 capsule by mouth once daily Cymbalta 60 mg oral delayed release capsule 60 mg = 1 cap(s), Oral, Daily, # 90 cap(s), Refills(s) 1, Pharmacy: [facility] [id number], 160, cm, 01/04/24 7:21:00 EDT, Height/Length Dosing, 78.7, kg, 01/04/24 7:21:00 EDT, Weight Dosing Start Date: 02/21/24 Status: Ordered Quantity: 90.0 Unit: cap(s) Repeat number: 2 Start: 34-11-3138mmkt 1 capsule by mouth once dailyCymbalta 60 mg oral delayed release capsule 60 mg = 1 cap(s), Oral, Daily, # 90 cap(s), Refills(s) 1, [id number], 160, cm, 07/05/23 9:08:00 EDT, Height/Length Dosing, 87.5, kg, 07/05/23 9:08:00 EDT, Weight Dosing Start Date: 07/05/23 Status: Orderedduloxetine 60 mg Cap-DR (3 sources)Start: 49-59-2797tlnc 1 capsule by mouth once dailyduloxetine 60 mg Cap-DR = 1 cap(s), Oral, Daily, Refills(s) 0 Start Date: 07/31/22 Status: Ordered FreeStyle Kailey 2 Sensor (5 sources)Start: 37-04-7542RxcjEfepb Kailey 2 Sensor FreeStyle Kailey 2 Sensor, See Instructions, 6 EA, 5, Apply new sensor to upper back arm q 14days, [facility] [id number], Supply, 160, cm, 01/04/24 7:21:00 EDT, Height/Length Dosing, 78.7, kg, 01/04/24 7:21:00 EDT, Weight Dosing Start Date: 03/22/24 Status: Ordered Quantity: 6.0 Unit: EA Repeat number: 6Start: 53-04-3682ZpieAmqoo Kailey 2 Sensor FreeStyle Kailey 2 Sensor, See Instructions, 6 EA, 5, Apply new sensor to upper back arm q 14days, [id number], Supply, 160, cm, 01/04/24 7:21:00 EDT, Height/Length Dosing, 78.7, kg, 01/04/24 7:21:00 EDT, Weight Dosing Start Date: 03/22/24 Status: OrderedStart: 04-46-3372WphjDaejz Kailey 2 Sensor FreeStyle Kailey 2 Sensor, See Instructions, 6 EA, 11, Apply new sensor to upper back arm q 14days, [facility] [id number], Supply, 160, cm, 09/13/23 7:24:00 EDT, Height/Length Dosing, 86, kg, 09/13/23 7:24:00 EDT, Weight Dosing Start Date: 09/23/23 Status: Orderedgabapentin 300 mg oral capsule (12 sources)Anti-epileptic AgentStart: 53-29-6189vtth 1 capsule by mouth three times dailyStart: 12-07-2024 End: 38-13-7600ypzr 1 capsule by mouth once dailyGabapentin 400 mg capsule Discontinued 400 MG PO Daily December 07, 2024 12:00am November 10:48amStart: 98-46-7736zcws 1 capsule by mouth three times dailygabapentin 400 mg Cap See Instructions, TAKE 1 CAPSULE BY MOUTH 3 TIMES A DAY, # 270 cap(s), Refills(s) 0, [facility]acy: [facility] [id number], 161.5, cm, 06/29/24 7:50:00 EDT, Height/Length Dosing, 78.4, kg, 06/29/24 7:50:00 EDT, Weight Dosing Start Date: 08/21/24 Status: Ordered Quantity: 270.0 Unit: cap(s) Repeat number: 1Start: 77-18-2196bnws 1 capsule by mouth three times dailygabapentin 400 mg Cap 400 mg = 1 cap(s), Oral, TID, # 270 cap(s), Refills(s) 0, Pharmacy: [facility] [id number], 160, cm, 04/06/24 8:31:00 EST, Height/Length Dosing, 78.8, kg, 04/06/24 8:31:00 EST, Weight Dosing Start Date: 04/06/24 Status: Ordered Quantity: 270.0 Unit: cap(s) Repeat number: 1Start: 73-77-1458wkcj 1 capsule by mouth three times dailygabapentin 400 mg Cap 400 mg = 1 cap(s), Oral, TID, # 270 cap(s), Refills(s) 0, Pharmacy: [facility] [id number], 160, cm, 01/04/24 7:21:00 EDT, Height/Length Dosing, 78.7, kg, 01/04/24 7:21:00 EDT, Weight Dosing Start Date: 01/04/24 Status: OrderedStart: 95-97-2784swpf 1 capsule by mouth three times dailygabapentin 400 mg Cap 400 mg = 1 cap(s), Oral, TID, # 270 cap(s), Refills(s) 0, [facility] #[id number], 157.5, cm, 12/14/22 6:58:00 EDT, Height/Length Dosing, 88.4, kg, 12/14/22 6:58:00 EDT, Weight Dosing Start Date: 12/28/22 Status: OrderedStart: 39-50-0253iwau 1 capsule by mouth three times dailygabapentin 400 mg Cap 400 mg = 1 cap(s), Oral, TID, Refills(s) 0 Start Date: 07/22/22 Status: Orderedglimepiride 4 mg oral tablet (5 sources)SulfonylureaStart: 45-24-2214vkln 1 tablet by mouth twice dailyStart: 95-14-5291efbc 1 tablet by mouth twice dailyAmaryl 4 mg Tab 4 mg = 1 tab(s), Oral, BID, Refills(s) 0 Start Date: 07/22/22 Status: Ordered3 ml insulin glargine 100 unt/ml pen injector (12 sources)Insulin AnalogStart: 32-93-9833Uzady: 12-07-2024 End: 16-62-2263mldsxa 10 [IU] by subcutaneous injection once daily in the eveningInsulin Glargine (Basaglar Kwikpen U-100 Insulin) 100 unit/mL (3 mL) insulin pen Discontinued 10 UNIT SUBCUT Every evening December 07, 2024 12:00am December 07, 2024 10:52amStart: 39-50-3310Mavwvhdd KwikPen 100 units/mL subcutaneous solution See Instructions, inject 15 units subcutaneously twice a day, # 54 mL, Refills(s) 1, Pharmacy: [facility] [id number], 160, cm, 01/04/24 7:21:00 EDT, Height/Length Dosing, 78.7, kg, 01/04/24 7:21:00 EDT, Weight Dosing Start Date: 03/22/24 Status: Ordered Quantity: 54.0 Unit: mL Repeat number: 2Start: 12-30-3355Hairzrto KwikPen 100 units/mL subcutaneous solution See Instructions, inject 15 units subcutaneously twice a day, # 54 mL, Refills(s) 0, [facility] #[id number], 160, cm, 09/13/23 7:24:00 EDT, Heigh t/Length Dosing, 86, kg, 09/13/23 7:24:00 EDT, Weight Dosing Start Date: 09/15/23 Status: OrderedStart: 37-25-3729dvsuve 30 [IU] by subcutaneous injection twice dailyLantus 100 units/mL Injection-Insulin See Instructions, 30 unit(s) SubCutaneous BID, Refills(s) 0 Start Date: 07/22/22 Status: OrderedStart: 59-75-0049whscak 27 [IU] by subcutaneous injection twice dailyLantus 100 units/mL Injection-Insulin 27 unit(s), SubCutaneous, BID, Refills(s) 0 Start Date: 07/22/22 Status: Jiterdf20 hr isosorbide mononitrate 30 mg extended release oral tablet (5 sources)Nitrate VasodilatorStart: 22-92-1936ungs 1 tablet by mouth once daily, then take 1 tablet by mouth every twenty-four hoursStart: 65-48-2474qpgw 1 tablet by mouth once dailyisosorbide mononitrate 30 mg ER Tab 30 mg = 1 tab(s), Oral, Daily, Refills(s) 0 Start Date: 12/14/22Status: Orderedlisinopril 2.5 mg oral tablet (6 sources)Angiotensin Converting Enzyme InhibitorStart: 36-97-6629vblx 1 tablet by mouth once dailyStart: 84-64-6863rttv 1 tablet by mouth once dailylisinopril 2.5 mg Tab See Instructions, TAKE 1 TABLET BY MOUTH DAILY, # 90 tab(s), Refills(s) 0, Pharmacy: [facility] [id number], 160, cm, 04/06/24 8:31:00 EST, Height/Length Dosing, 78.8, kg, 04/06/24 8:31:00 EST, Weight Dosing Start Date: 04/10/24 Status: Ordered Quantity: 90.0 Unit: tab(s) Repeat number: 1Start: 74-21-0640zdnh 1 tablet by mouth once dailylisinopril 2.5 mg Tab See Instructions, TAKE 1 TABLET BY MOUTH DAILY, # 90 tab(s), Refills(s) 0, Pharmacy: [facility] [id number], 160, cm, 01/04/24 7:21:00 EDT, Height/Length Dosing, 78.7, kg, 01/04/24 7:21:00 EDT, Weight Dosing Start Date: 03/27/24 Status: OrderedmetFORMIN hydrochloride 1000 mg / SITagliptin 50 mg oral tablet (10 sources)Biguanide, Dipeptidyl Peptidase 4 InhibitorStart: 48-47-5377juwt 1 tablet by mouth twice dailyStart: 74-20-5690jdpa 1 tablet by mouth twice daily Janumet 50 mg/1000 mg oral tablet 1 tab(s), Oral, BID, 180 tab(s), Refill(s) 1, [facility] [id number], 160, cm, 04/06/24 8:31:00 EST, Height/Length Dosing, 78.8, kg, 04/06/24 8:31:00 EST, Weight Dosing Start Date: 04/10/24 Status: Ordered Quantity: 180.0 Unit: tab(s) Repeat number: 2Start: 91-10-9865Kpjaacy 50 mg/1000 mg oral tablet 1 tab(s), Oral, BID, 180 tab(s), Refill(s) 1, [facility] #[id number], 160, cm, 07/05/23 9:08:00 EDT, Height/Length Dosing, 87.5, kg, 07/05/23 9:08:00 EDT, Weight Dosing Start Date: 07/05/23 Status: OrderedStart: 07-22-2022 take 1 tablet by mouth twice dailyJanumet 50 mg/1000 mg oral tablet 1 tab(s), Oral, BID, Refill(s) 0 Start Date: 07/22/22 Status: OrderedmethylPREDNISolone 4 mg oral tablet (1 source)CorticosteroidStart: 12-14-2022 End: 86-49-0237Ejbkeh Dosepack 4 mg Tab = 1 packet(s), Oral, As Directed, as directed on package labeling, X 6 day(s), # 21 tab(s), Refills(s) 0, Pharmacy: [facility] #[id number], 157.5, cm, 12/14/22 6:58:00 EDT, Height/Length Dosing, 88.4, kg, 12/14/22 6:58:00 EDT, Weight Dosing Start Date: 12/14/22 Stop Date: 12/20/22 Status: OrderedMulti Vitamins oral tablet (8 sources)Start: 20-29-2791zkkr 1 tablet by mouth once dailyMulti Vitamins oral tablet 1 tab(s), Oral, Daily, Refill(s) 0 Start Date: 07/31/22 Status: Ordered Repeat number: 1Start: 48-37-0965zash 1 tablet by mouth once dailyMulti Vitamins oral tablet 1 tab(s), Oral, Daily, Refill(s) 0 Start Date: 07/31/22 Status: OrderedMultivitamin (Daily Multi-Vitamin) tablet (2 sources)Start: 41-23-1673kjfn 1 tablet by mouth once dailyStart: 12-07-2024 take 1 tablet by mouth once dailyMultivitamin (Daily Multi-Vitamin) tablet Active 1 TAB PO Daily December 07, 2024 12:00am Complies with drug therapy traMADol hydrochloride 50 mg oral tablet (3 sources)Opioid AgonistStart: 08-13-0630byls 1 tablet by mouth every eight hours as neededStart: 72-92-5171zuye 1-2 tablets by mouth every eight hours as needed for paintraMADOL 50 mg Tab 1-2 tabs, Oral, q8hr, PRN Pain, # 24 tab(s), Refills(s) 0, Pharmacy: [facility] [id number], 161.5, cm, 08/31/24 11:23:00 EDT, Height/Length Dosing, 78.9, kg, 08/31/24 11:23:00 EDT, Weight Dosing Start Date: 08/31/24 Status: Ordered Quantity: 24.0 Unit: tab(s) Repeat number: 1 In dications: Low back pain, unspecified; Problems Active Problems Problem ClassificationProblemDateDocumented DateEpisodic/ChronicCalculus of urinary tract (1 source)Personal history of urinary calculi; Translations: [PERSONAL HISTORY OF URINARY CALCULI]Onset: 72-46-4224VgohwzfhQufsbb; other and unspecified primary (1 source)Personal history of malignant neoplasm of soft tissue; Translations: [PERSONAL HISTORY OF MALIGNANTNEOPLASM OF SOFT TISSUE]Onset: 66-57-1660Ahnxgnzi Cardiac dysrhythmias (1 source)Tachycardia, unspecified; Translations: [TACHYCARDIA, UNSPECIFIED] Onset: 89-88-1727KhevfkorInweqce kidney disease (20 sources)Chronic kidney disease, unspecified; Translations: [Chronic kidney disease]Onset: [id number] on above:linked HTN with CKD per OP CDI policy.Chronic kidney disease (1 source)Chronic kidney disease; Translations: [Chronic kidney disease, stage 3 unspecified]Onset: 43-58-7374Mwlcawl obstructive pulmonary disease and bronchiectasis (9 sources)Chronic obstructive pulmonary disease, unspecified; Translations: [Chronic obstructive lung disease]Onset: [id number] and hemorrhagic disorders (1 source)Thrombocytopenia, unspecified; Translations: [THROMBOCYTOPENIA, UNSPECIFIED]Onset: 35-90-0199TwrnausFmrwuwmy atherosclerosis and other heart disease (19 sources)Atherosclerotic heart disease of [place] coronary artery with unstable angina pectoris; Translations: [Preinfarction syndrome]Onset: [id number] atherosclerosis and other heart disease (2 sources)Presence of aortocoronary bypass graft; Translations: [Presence of aortocoronary bypass graft]Onset: 76-27-9453LfphnplcAealdmwmjb and other anemia (1 source)Iron deficiency anemia secondary to blood loss (chronic); Translations: [IRON DEFICIENCY ANEMIA SECONDARY TO BLOOD LOSS (CHRONIC)]Onset: 31-88-9635YlwoqwxPccvemnr mellitus with complications (16 sources)Type 2 diabetes mellitus with diabetic chronic kidney disease; Translations: [Disorder of kidney due to diabetes mellitus]Onset: 10-10-2021 ChronicDiabetes mellitus with complications (1 source)Type 2 diabetes mellitus with diabetic polyneuropathy; Translations: [TYPE 2 DIABETES MELLITUS WITHDIABETIC POLYNEUROPATHY]Onset: 25-20-7465Eogtnauf mellitus without complication (17 sources)Type 2 diabetes mellitus without complications; Translations: [Diabetes mellitus]Onset: 29-52-3635KfpzfgbYcxdsqz on above:linked DM with HLD per outpatient CDI policy.linked DM with CKD per OP CDI policy.Disorders of lipid metabolism (14 sources)Hyperlipidemia, unspecified; Translations: [Hyperlipidemia]Onset: 091859-44-0536FbewnmvBqopwnkuo hypertension (11 sources)Essential (primary) hypertension; Translations: [Essential hypertension]Onset: 381471-65-3425HmhdjafAnrpy and electrolyte disorders (1 source)Acidosis; Translations: [ACIDOSIS]Onset: 79-80-6564Bqdoruyz Genitourinary symptoms and ill-defined conditions (5 sources)Microalbuminuria; Translations: [Proteinuria, unspecified]Onset: 050157-50-8888ImyditbcNvognifr; including migraine (7 sources)Lhlmvujp73-88-3098VnagljtjAggmqqncpcgx with complications and secondary hypertension (5 sources)Chronic kidney disease due to hypertension; Translations: [Hypertensive chronic kidney disease withstage 1 through stage 4 chronic kidney disease, or unspecified chronic kidney disease]Onset: ChronicMood disorders (13 sources)Depressive disorder; Translations: [Moderate major depression, single episode]27-21-7840SmkzpkoMrzhron on above:added per 09/30/2021 query response.Noninfectious gastroenteritis (1 source)Noninfective gastroenteritis and colitis, unspecified; Translations: [NONINFECTIVE GASTROENTERITIS AND COLITIS, UNSPECIFIED]Onset: 33-10-4206Fayevhvx Nonspecific chest pain (5 sources)Chest pain, unspecified; Translations: [Other chest pain]Onset: 82-34-1538TqytepveMtciuadetgzg (3 sources)Avdamxdlivsu34-14-3517EmbvztrRapkl aftercare (2 sources)child care centre manager (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) use of aspirin; Translations: [HIGHWAY LANDSCAPE ARCHITECT (CURRENT) USE OF ASPIRIN]Onset: 84-79-3668FphjykgrTebqi aftercare (1 source)Other jail (current) drug therapy; Translations: [OTH HIGHWAY LANDSCAPE ARCHITECT CURRENT DRUG THERAPY]Onset: 02-56-7280PbrgojkfTbdfb aftercare (1 source)correction (current) use of insulin; Translations: [HIGHWAY LANDSCAPE ARCHITECT CURRENT USE OF INSULIN]Onset: 00-14-0119ToepqbdrHhwcw aftercare (1 source)correction (current) use of oral hypoglycemic drugs; Translations: [MCFP (CURRENT) USE OF ORAL HYPOGLYCEMIC DRUGS]Onset: 30-32-5973Gihmv diseases of kidney and ureters (4 sources)Secondary hyperparathyroidism; Translations: [Secondary hyperparathyroidism of renal origin]43-97-8215NjeskaoHdksg diseases of kidney and ureters (1 source)Secondary hyperparathyroidism of renal origin; Translations: [Secondary hyperparathyroidism of renal origin]Onset: 57-02-9051VdoncrdAvqui ear and sense organ disorders (8 sources)Hearing ashk31-09-1218IwuzmarNfusz ear and sense organ disorders (2 sources)Sensorineural hearing loss, bilateral; Translations: [Sensorineural hearing loss, bilateral]18-57-3279JfxzzlvCnila fractures (1 source)Multiple fractures of ribs, left side, subsequent encounter for fracture with routine healing; Translations: [MULTIPLE FX OF RIBS, LEFT SIDE, SUBS FOR FX W ROUTN HEAL]Onset: 58-00-3995TjyxohiqMxyhu hematologic conditions (7 sources)Bmlkxfbrmgbt83-01-4216BtlaicflBnmix lower respiratory disease (1 source)Hypoxemia; Translations: [HYPOXEMIA]Onset: 43-12-8406FckvgvfxTlwnd nervous system disorders (8 sources)Gjrmwbyctmlick85-66-3484PgpwkdcLjqqv nutritional; endocrine; and metabolic disorders (11 sources)Body mass index 30+ - cliytly49-47-4819QzflcogFwncc upper respiratory infections (5 sources)Posterior ohudljeqda95-21-8186PyhnheggCnxfcjtln (except that caused by tuberculosis or sexually transmitted disease) (1 source)Pneumonia, unspecified organism; Translations: [PNEUMONIA, UNSPECIFIED ORGANISM]Onset: 76-89-2453UyazfzanGolivtoe codes; unclassified (1 source)Obstructive sleep apnea (adult) (pediatric); Translations: [OBSTRUCTIVE SLEEP APNEA (ADULT) (PEDIATRIC)]Onset: 98-76-4828VvzqmttFfwjluxr codes; unclassified (8 sources)Obstructive sleep apnea byoyrhug51-70-8176FhplsztVovxqudj codes; unclassified (1 source)Acquired absence of other specified parts of digestive tract; Translations: [ACQUIRED ABSENCE OF OTHER SPECIFIED PARTS OF DIGESTIVE TRACT] Onset: 90-49-5986FzfazewlGsdnnwot codes; unclassified (1 source)Acquired absence of both cervix and uterus; Translations: [ACQUIRED ABSENCE OF BOTH CERVIX AND UTERUS]Onset: 91-68-0141UsatxywwSwuvbxye codes; unclassified (1 source)Family history of ischemic heart disease and other diseases of the circulatory system; Translations: [FAMILY HX OF ISCHEM HEART DIS AND OTH DIS OF THE CIRC SYS]Onset: 66-40-7775VxhmkxnoVxsscvkk codes; unclassified (8 sources)Family history of cancer of pyhmu19-43-5009BmbpgyqbWbdvdqeb codes; unclassified (3 sources)Smokes tobacco dhusf75-94-2762YscrloszThtjwex detachments; defects; vascular occlusion; and retinopathy (8 sources)Retinal zgytexoi42-15-3557CsfleumDtcuiaqjr and history of mental health and substance abuse codes (1 source)Ud-aghpgi73-55rxzjle16-04-9217LhlfovblKummrfufta (except in labor) (1 source)SepsisOnset: 51-53-4900EolyryorAtuwtgnhso (except in labor) (3 sources)Sepsis, unspecified organism; Translations: [SEPSIS, UNSPECIFIED ORGANISM]Onset: 73-27-0322Nmnbjfvydtw; intervertebral disc disorders; other back problems (8 sources)Zoyxbvrb03-84-8367RwkvqpqnTztrswbzl-jtrsdtb disorders (11 sources)Nicotine dependence, cigarettes, uncomplicated; Translations: [Smoker]Onset: 317490-99-0034UitojbjItbmfpxhvxkq (13 sources)Patient encounter -64-5965Kdrrmlecnpka (7 sources)Long-term current use of qhjshdo51-29-6435Rqmdcii on above:Current Medication List includes Lantus. added per outpatient CDI policy. Past or Other Problems Problem ClassificationProblemDateDocumented DateEpisodic/ChronicOther screening for suspected conditions (not mental disorders or infectious disease) (1 source)Encounter for screening mammogram for malignant neoplasm of breast; Translations: [ENC SCR MAMMO MALIG NEOPLASM BREAST]Onset: 52-19-7977Iwtniawv Residual codes; unclassified (1 source)Family history of malignant neoplasm of breast; Translations: [FAMILY HX MALIG NEOPLASM OF BREAST]Onset: 98-88-7555KbilkmfwPrvoigpx codes; unclassified (1 source)Family history of malignant neoplasm of digestive organs; Translations: [FAM HX MALIG NEOPLASM DIGESTIV ORGN]Onset: 41-30-1334Mpyaykaj Results Test NameValueInterpretationReference RangeFacilityUS renal BIon 82-86-3112HK renal [facility] [place] [address] Ultrasound Report Signed Patient: Pato Corral MR#: [id number] : 1960 Acct:[id number] Age/Sex: 64 / F ADM Date: 12/26/24 Loc: Room: Type: [facility] Attending Dr: Dereck Goodson MD Ordering Provider: Dereck Goodson MD Date of Service: 12/26/24 US/US renal BI: I25.10 - Atherosclerotic heart disease of [place] coronary... Copies to: Dereck Goodson MD BILATERAL RENAL AND BLADDER ULTRASOUND CLINICAL HISTORY: Stage III chronic kidney disease. COMPARISON: None FINDINGS: Estimation of renal size is approximately 10.29 cm on the right and 10.06 cm on the left. No contour deforming mass, shadowing stone or hydronephrosis. The urinary bladder is partially distended with a volume of 101.45 ml. No shadowing stone or focal lesion. US/US renal BI IMPRESSION: No acute findings. Impression dictated by: Júnior Yanez Jr., D.OMariia 12/26/2024 2:00 PM Dictation Location: [place] [address] Tech: Marlena Ivan Transcribed By: DIONY 12/26/24 1400 Dictated By: Júnior Yanez Jr, DO 12/26/24 1359 Signed By: 12/26/24 1400[facility] Phys[facility] Eiacn02gz 90-76-158957Iwzlk to patient to advise patient of Parvin Ramírez CNP recommendation to increase her amlodipine to 10 mg daily. Patient verbalized understanding and agreed with planNormalUniSt. Charles Hospital36Regarding PCP note from 12/07/2024: FOX Connolly MA Her BP was very high there. Recommend she increase her amlodipine to 10mg daily. Thank you Elsy TIPTON for her on 12/13. Can you try her again please? Thanks.NormalUnOhioHealth Mansfield HospitalTelephoneon [id number] Pato Corral 1960 F Date Provider Department Center 12/20/2024 [id number]-ANJU MADDOX [facility] Family History Problem Relation Age of Onset Coronary artery disease Father Family Status - Relation Status Age at Mother Alive Father DeceasedNormalUniSt. Charles Hospital36on 66-35-750802Fmn we see if she's seen' nephrology with [facility] or when her appt is and request a copy of their office note?NormalUnOhioHealth Mansfield Hospital Orders Onlyon 89-93-0441Zxlsdo [id number] Pato Corral 1960 F Date Provider Department Center 11/29/2024 [id number], HISTORICAL [facility] Family History Problem Relation Age of Onset Coronary artery disease Father Family Status - Relation Status Age at Mother Alive Father DeceasedNoMercy Health Fairfield HospitalOffice Visiton 64-84-2698Yagriv-up [id number] Pato Corral 1960 F Date Provider Department Center 11/02/2024 166-RAJINDER [facility] Family History Problem Relation Age of Onset Coronary artery disease Father Family Status - Relation Status Age at Mother Alive Father Level of Service:75321 [place] OFFICE/OUTPATIENT ESTABLISHED MOD MDM 30 MIN Reason for Visit and Comments: Coronary Artery Disease [187] Hypertension [581030] Hyperlipidemia [182]NormalTrinity Health System Twin City Medical CenterTelephoneon [id number] Pato Corral Antwon 1960 F Date Provider Department Center 11/02/2024 Sterling-ELSY TOWNSEND Family History Problem Relation Age of Onset Coronary artery disease Father Family Status - Relation Status Age at Mother Alive Father DeceasedNormalUniSt. Charles HospitalAmbulatory Visit Summary on 10-35-9765Dsxrkntryh Visit SummaryAmbulatory Visit Summary PATO CORRAL :1960 Visit Date:09/28/2024 Ambulatory Visit Instructions Your Diagnosis Type 2 diabetes mellitus with stage 3 chronic kidney disease Chronic obstructive pulmonary disease Benign hypertension with chronic kidney disease, stage III Diabetic nephropathy Chronic kidney disease, stage 3 unspecified Your Care Team Attending Physician - JANET KEEN CNP Primary Care Physician - Dandre Burger [...] Appointments 2025 8:40 AM EST With: JANET KEEN CNP Where: [address] [phone]- Wednesday2025 8:00 AM EST With: Where: [address] [phone]- You Need to Schedule the Following Appointments Follow Up with JANET KEEN CNP, FAM When: Within 6 months Comments: Diabetes Where: [address] [place] [phone] Business (1) Medications What How Much When [...] for breast cancer Scree (more content not included)...[facility] Medicine Office/Clinic Noteon 79-98-0485Ywxsjp Medicine Office/Clinic NoteFafree hospital for women Medicine Office/Clinic Note Chief Complaint 3m Diabetic Check up The patient presents for a follow-up on diabetes management and medication refills. [facility] Staff Pt presents today for 3m follow [...] for diabetes management. Her last hemoglobin A1c was6.1, indicating good control of her diabetes, and she is currently on Trulicity for management. Shereports neuropathy symptoms, with her last two toes frequently falling asleep, and experiences soreness in her feet attributed to neuropathy. She has consulted a legislative aide in the past and received dietary recommendations, although she misplaced the written plan. The patient has a history of hypertension and chronic obstructive pulmonary disease (COPD). She is scheduled to start physical therapy for back pain, which has been delayed. She has been taking Tylenol Arthritis intermittently for pain management, particularly during rainyweather, and is aware of the potential impact [...] Controlled - Continue current diabetes management with Trulicity, Lantus, & Janumet monitor A1c levels regularly [...] Current tobacco non-user 1036F Diabetic Foot Exam 2028F Functional status assessed 1170F HBA1C <7.0 Most Recent Level 3044F Medication list documented in medical record 1159F Most recent LDL-C < 100 mg/Dl 3048F Review of all meds by a prescribing practitioner or clinical pharmacist documented in EHR 1160F Follow-up With When Contact Information JANET KEEN CNP, FAM Within [address] [place] [phone] Business (1) Additional Instructions: Diabetes Patient Education Chronic Kidney Disease, Ad (more content not included)...[facility] HospitalComment on above:Result Comment: Electronically Signed By: JANET KEEN CNP\.br\Date and Time Signed: 09/28/24 10:56 EDTXR Spine Lumbosacral Minimum 4 Viewson 68-27-2227BF Spine Lumbosacral Minimum 4 ViewsExam Date/Time: 09/04/2024 08:50 EDT Reason for Exam: [...] of the abdominal aorta. Ordering Provider: JANET KEEN FINAL REPORT Dictated: 09/05/2024 9:57 am Julio César Castrejon DO Signed (Electronic Signature): 09/05/2024 9:57 am Signed by: Julio César Castrejon DO Transcribed by: VILLA Technologist: Huber [facility] Medicine Office/Clinic Noteon 57-52-6953Xrjlat Medicine Office/Clinic NoteFafree hospital for women Medicine Office/Clinic Note Chief Complaint bad kidney [...] and impacting daily activities. The pain is descri bed as burning and is exacerbated by certain [...] Pain, # 24 tab(s), Refills(s) 0, Pharmacy: [facility] [id number], 161.5, cm, 08/31/24 11:23:00 EDT, Height/Length Dosing, [...] Urnls Dip Stick Auto w/o Microscopy POC 98742 3. Former smoker (Z87.891: Personal history of [...] medical support in addressing this problem. Your BMIand weight management will be followed at subsequent visits. Follow-up With When Contact Information Dandre Burger Within 2 to [address] weeks [address] [place] [address] Business (2) Additional Instructions: Lumbar pain Patient Education Chronic Back Pain, Zhiv-qw-Jzwh Problem List/Past Medical History Ongoing Back pain Benign hypertension with chronic kidney disease, stage III BMI 30.0-30.9,adult Chronic obstructive pulmonary disease Cigarette nicotine dependence Coronary artery disease Current every day smoker Diabetic nephropathy Essential hypertension Family history of colo (more content not included)...[facility] HospitalComment on above:Result Comment: Electronically Signed By: JANET KEEN CNP\Date and Time Signed: 08/31/24 12:05 EDTAmbulatory Visit Summaryon 03-30-0071Ztizybzwlu Visit SummaryAmbulatory Visit Summary PATO CORRAL :1960 Visit Date:06/29/2024 [...] Follow-Up Appointments 2024 7:40 AM EDT With: Dandre Burger MD Where: [address] [address]- Wednesday2025 8:00 AM EST With: Where: [place] [address]- Medications What How Much When Why Instructions [...] Mouth Every day as needed for for constipationContact prescribing physician if questions or concerns Unchanged [...] stage III BMI 30.0-30.9,adult (more content not included)...[facility] Medicine Office/Clinic Noteon 63-83-4365Yfryhz Medicine Office/Clinic NoteFafree hospital for women Medicine Office/Clinic Note Chief Complaint 3m follow [...] Coronary artery disease under annual monitoring with milk sampler. No angina or shortness of breath. - Back pain: Recent occurrence, details of symptoms were not elaborated. - Diabetes management: Blood glucose monitoring with a recent morning glucose of 176 mg/dL. Advisedto target blood glucose levels between 145-165 mg/dL. [...] level of consciousness appropriate for age, CN II- XII intact, motor strength equal & normal bilaterally, [...] artery disease (I25.10: Atherosclerotic heart disease of [place] coronary artery withoutangina pectoris) - Continue annual milk sampler reviews. - Monitor cardiac medications. 5. Diabetic nephropathy (E11.21: Type 2 diabetes mellitus with diabetic nephropathy) - Will recheck at one year labs 6. Essential hypertension (I10: Essential (primary) hypertension) - Well controlled on meds. 7. Type 2 diabetes mellitus with hyperlipidemia (E11.69: Type 2 diabetes mellitus with other specified complication) - Blood glucose targets encouraged. - Lifestyle modifications reinforced. Ordered: A1c POC 14354 Body Mass Index (BMI) documented 3008F Current [...] Diet and exercise advised. (more content not included)...[facility] HospitalComment on above: Result Comment: Electronically Signed By: Tao GTZ, Dandre Taylor\.br\Date and Time Signed: 06/29/24 08:19 EDTCT Chest, Low Dose Screeningon 53-33-6565JW Chest, Low Dose ScreeningExam Date/Time: 06/21/2024 16:57 EDT Reason for Exam: [...] Diony Herrera MD Transcribed by: VILLA Technologist: MaxwellSt. [facility], Ironton CampusMA Mamm Screen w/CAD if perf and 3D Bilon 75-92-3561LU Mamm Screen w/CAD if perf and 3D BilExam Date/Time: 06/01/2024 12:02 EDT Reason for Exam: [...] IS VERY IMPORTANT TO YOUR HEALTH. THE [employer] GUIDELINES RECOMMEND THAT WOMEN 40 [...] REPORT Dictated: 06/02/2024 10:35 am Tristen Castañeda MD. Signed (Electronic Signature): 06/02/2024 10:35 am Signed by: Tristen Castañeda MD Transcribed by: VILLA Technologist: BUCK Assessment: BI-RADS Category 1-Negative Recommendation: Normal interval follow-upDunlap Memorial Hospital Ambulatory Visit Summaryon 25-55-3443Hawvjixjcm Visit SummaryAmbulatory Visit Summary PATO CORRAL :1960 Visit Date:05/11/2024 [...] FT Mammography 2024 8:15 AM EDT With: Dandre Burger MD Where: [facility] [address] [address]- Wednesday2025 8:00 AM EST With: Where: [facility] [place] [phone] [place] [address]- You Need to Complete the Following CT Chest, Low Dose Screening, 05/11/24, Routine, Order for future visit, Transport Mode: Ambulatory, Reason: Screening, Yes, Yes, Yes, 1, 35, Yes, 0, [id number], No, No, Yes, Current every day smoker, last LDCT 06/17/2023 at [facility]. [facility] are pushing images to [facility]. Please schedule aft... MA Mamm Screen w/CAD if perf and 3D [place], 05/18/24, Routine, Order for Future Visit, Transport Mode:Ambulatory, Reason: Screening, Reason: Z12.31, No, No, No, Breast cancer screening by mammogram, pp_set_radiology_subspecialty, Required & Missing, [facility] Medications What How Much When Instructions Unchanged [...] history of colon ca (more content not included)...[facility] Medicine Office/Clinic Noteon 99-84-4737Blqxtv Medicine Office/Clinic NoteWorcester State Hospital Medicine Office/Clinic Note Chief Complaint Subsequent Medicare Wellness Physical Exam Vitals & Measurements HR: 62(Peripheral) BP: 140/70 SpO2: 93% HT: 161.5 cm HT: 64 in WT: 79.8 kg WT: 175.929 lb BMI: 30.6 Procedure I was in the office and available for consultation and to provide direct supervision at the time ofthis visit. I have provided supervision of the [...] and all current CDC recommended immunizations, relevant riskrecommendations and the following patient brochures were given. Reviewed Medicare Prevention Services checklist. [facility]-Falls Prevention and home safety screening reviewed. Patient denies any falls in last 12 months, voices no worry about falling. Exhibits no problems with sitting, standing or ambulation. Patient aware with keeping walk way area free of clutter to prevent tripping and/or falling. [place] Advance Directives reviewed. See #13. Patient denies any problems with ADL???s and Instrumental ADL???s. Cognitive screening completed with memory and clock face drawing. No deficits noted. Immunization record reviewed, discussed Shingrix vaccine have been previously administered. 2 COVIDvaccines have been administered, with 1 Booster received. [...] reminded with the importance of continued Breast Self- Awareness at home. Easy to read demonstration on how to perform a self breast exam: What to look for and feel for was reviewed and provided topatient. Mammogram ordered and has been scheduled with [facility] 05/18/2024. Pt has been advised no deodorant, sprays or lotions. Patient previously has had mammograms at [facility], images have been requested to be pushed to [facility]. 3. Diabetic nephropathy (E11.21: Type 2 diabetes [...] which types of fo (more content not included)...[facility] HospitalComment on above: Result Comment: Electronically Signed By: JANET KEEN CNP\.br\Date and Time Signed: 05/11/24 10:34 EST\.br\Electronically Co-Signed By: Radha Claros\.br\Date and Time Co-Signed: 05/11/24 10:12ESTAmbulatory Visit Summaryon 07-79-4981Doommptfru Visit SummaryAmbulatory Visit Summary PATO CORRAL :1960 Visit Date:04/06/2024 Ambulatory Visit Instructions Your [...] Appointments 2024 8:00 AM EST With: Where: [address] [address] 2024 8:15 AM EDT With: Tao GTZ, Dandre Taylor Where: [address] [address]- You Need to Complete the Following HgbA1c, Blood, Routine collect, 04/06/24, Order for future visit, Lab Collect, Chronic obstructive pulmonary disease Diabetic nephropathy Kidney disease, chronic, stage III (moderate, EGFR 30-59 ml/min) Type 2 diabetes mellitus with hyperlipidemia Eliezer... Medications What How Much When Instructions Changed dulaglutide (Trulicity Pen 4.5 mg/ 0.5 mL subcutaneous solution) 4.5 Milligram SubcutaneousEvery week Pickup at [facility] [id number] Unchanged gabapentin (gabapentin 400 mg Cap) 1 Capsules By Mouth 3 times a day Pickup at [facility] [id number] Unchanged aspirin (aspirin 81 mg Oral EC [...] Mouth Every day as needed for for constipationContact prescribing physician if questions or concerns Unchanged [...] physician if questions or concerns Pharmacy Information [facility] [id number]: [address] [place], [place] [id number] [phone] Allergies No Known Medication Allergies Problems Ongoing - Any problem that you are currently receiving treatment for. Back pain Benign hypertension (more content not included)...[facility] HospitalCHEMISTRYOrdered By: Marlena Ramirez on 33-28-7206IsI5u (Bld) [Mass fraction]7.3 %High<=5.9%[facility] ChemAutoSSFamily Medicine Office/Clinic Noteon 98-10-0432Gqvrdq Medicine Office/Clinic NoteFafree hospital for women Medicine Office/Clinic Note Chief Complaint Concern about [...] over the last few months. Discussions noted theabsence of renal function results necessary for diabetic [...] level of consciousness appropriate for age, CN II- XII intact, motor strength equal & normal bilaterally, [...] Ordered: HgbA1c 5. 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 [...] follow-up on smoking habits and support strategies forcessation. Ordered: HgbA1c 8. BMI 30.0-30.9,adult (Z68.30: Body [...] qWeek, # 4 EA, Refills(s) 0, [facility] [id number],160, cm, 04/06/24 8:31:00 EST, Height/Lengt (more content not included)...[facility] HospitalComment on above:Result Comment: Electronically Signed By: Tao GTZ, Dandre Solano.br\Date and Time Signed: 04/06/24 08:48 AUROgsS8lsk 46-89-8796YoE3b (Bld) [Mass fraction]7.3 %High<=5.9[facility] Medical CenterComment on above:Performed By: #### [id number] #### [facility] [address] [place], [place] [address]Drvkwwihhl Visit Summaryon 13-34-0582Anfncseixy Visit Summary Ambulatory Visit Summary PATO CORRAL [...] physician if questions or concerns Misc Prescription (Storypanda Kailey 2 Sensor) aspirin (aspirin 81 mg [...] Follow-Up Appointments Wednesday 7:15 AM EST With: Dandre Burger MD Where: [facility] [address] [address] 2024 8:00 AM EST With: Where: [address] [address]- Medications What How Much When Instructions Unchanged gabapentin (gabapentin 400 mg Cap) 1 Capsules By Mouth 3 times a day Pickup at [facility] [id number] Unchanged Misc Prescription (Misc DME Prescription) See instructions Droplet 32G x 1/ 4 needles. Use to inject insulin sub q twice a day Pickup at [facility] [id number] Unchanged aspirin (aspirin 81 mg Oral EC [...] Mouth Every day as needed for for constipationContact prescribing physician if questions or concerns Unchanged [...] physician if questions or concerns Pharmacy Information [facility] [id number]: [address] [place], [place] [id number] [phone] Medications and Immunizations Administered Given Fluzone High-Dose [...] stage III (moderate, EGFR (more content not included)...NormalUniversity Hospitals Ahuja Medical CenterCHEMISTRYOrdered By: SYSTEM SYSTEM on 97-79-2293Noarpuv DL <= 20 mg/L (U) [Mass/Vol]19.0 mg/dLHigh0.0 - 1.9 mg/dL Remisol ChemAlbumin [Mass/Vol]4.1 g/dLNormal3.3 - 5.0 gm/dLRemisol Chem Albumin/Globulin [Mass ratio]1.5 {ratio}Normal1.1 - 2.2Remisol ChemALP [Catalytic activity/Vol]71 [iU]/tPlcppk08 - 98 Int._Unit/LRemisol ChemALT No additional P-5'-P [Catalytic activity/Vol]19 [iU]/dNormal6 - 46 Int._Unit/L Remisol ChemAnion gap [Moles/Vol]12 mmol/LNormal6 - 16 mEq/LRemisol ChemAST [Catalytic activity/Vol]17 [iU]/dNormal5 - 43 Int._Unit/LRemisol ChemBilirubin [Mass/Vol]0.5 mg/dLNormal0.0 - 1.1 mg/dLRemisol ChemCalcium [Mass/Vol]9.9 mg/dL Normal8.9 - 11.1 mg/dLRemisol ChemChloride [Moles/Vol]106 mmol/EYdknve041 - 111 mmol/LRemisol ChemCholesterol [Mass/Vol]117 mg/fCKtm341 - 200 mg/dLRemisol Chem Cholesterol in HDL [Mass/Vol]36 mg/dLInvalid Interpretation CodeRemisol Chem Comment on above:Result Comment: '>= 60 LOW RISK' '<= 40 HIGH RISK'Cholesterol in LDL [Mass/Vol]47 mg/dLNormal<=129mg/dLRemisol ChemCholesterol in VLDL [Mass/Vol]53 mg/dLHigh7 - 40 mg/dLRemisol ChemCO2 [Moles/Vol]27 mmol/RDjqvwe82 - 31 mmol/LRemisol ChemCreatinine [Mass/Vol]1.3 mg/dLNormal0.5 - 1.3 mg/dLRemisol ZynlpHNW68 mL/min/1.73 m2Low>=59mL/min/1.73 m2 Remisol ChemGlobulin (S) [Mass/Vol]2.7 g/dLNormal1.4 - 4.0 gm/dLRemisol Chem Glucose [Mass/Vol]137 mg/pILymfkg74 - 199 mg/dLRemisol ChemPotassium [Moles/Vol] 4.6 mmol/LNormal3.5 - 5.3 mmol/LRemisol ChemProtein [Mass/Vol]6.8 g/dLNormal6.0 - 7.8 gm/dLRemisol ChemSodium [Moles/Vol]140 mmol/FPhlbxb072 - 145 mmol/LRemisol ChemTriglyceride [Mass/Vol]266 mg/dLHigh<=149mg/dLRemisol ChemUrea nitrogen [Mass/Vol]21 mg/dLNormal5 - 21 mg/dLRemisol ChemUrea nitrogen/Creatinine [Mass ratio]16 mg/ueGxaxbb66 - 20Remisol ChemCHEMISTRYOrdered By: Marlena Ramirez on 10-63-3132IbY4q (Bld) [Mass fraction]7.3 %High<=5.9%[facility] ChemAutoSSFamily Medicine Office/Clinic Noteon [id number] Medicine Office/Clinic NoteFafree hospital for women Medicine Office/Clinic Note HPI Staff Pato is [...] daily. Concerns were raised about weight gain potentiallyassociated with her insulin therapy. Her blood glucose [...] partly to dietary factors. Past interventions and adviceon diet have been offered, with mixed adherence. [...] level of consciousness appropriate for age, CN II- XII intact, motor strength equal & normal bilaterally, [...] HgbA1c Influenza immunization administer (more content not included)...[facility] HospitalComment on above:Result Comment: Electronically Signed By: Tao GTZ, Dandre Taylor\.br\Date and Time Signed: 01/04/24 07:43 EDTHEMATOLOGYOrdered By: SYSTEM SYSTEM on 58-86-5563Ugkwefmen/100 WBC (Bld)0.5 %Normal0.0 - 2.0 % Remisol HemeBasophils/Leukocytes Auto (Bld) [Pure # fraction]0.1 E9/LNormal0.0 - 0.2 E9/LRemisol HemeEosinophils (Bld) [#/Vol]0.5 E9/LNormal0.0 - 0.5 E9/LRemisol HemeEosinophils/100 WBC (Bld)4.2 %Normal0.0 - 8.0 %Remisol HemeErythrocyte distribution width (RBC) [Ratio]17.0 %High10.9 - 14.2 %Remisol HemeHematocrit (Bld) [Volume fraction]37.0 %Corcmd54.0 - 46.0 %Remisol HemeHemoglobin (Bld) [Mass/Vol]12.2 g/pEJhealf76.0 - 16.0 gm/dLRemisol HemeLymphocytes (Bld) [#/Vol] 2.7 E9/LNormal1.0 - 4.0 E9/LRemisol HemeLymphocytes/100 WBC (Bld)23.7 %Normal 14.0 - 50.0 %Remisol HemeMCH (RBC) [Entitic mass]26.1 pgLow27.0 - 34.0 pgRemisol HemeMCHC (RBC) [Mass/Vol]33.0 g/rUWqbkwr28.4 - 36.0 gm/dLRemisol HemeMCV (RBC) [Entitic vol]79.3 fLLow80.0 - 100.0 fLRemisol HemeMonocytes (Bld) [#/Vol]0.8 E9/LNormal0.2 - 1.0 E9/LRemisol HemeMonocytes/100 WBC (Bld)7.1 %Normal4.0 - 14.0 %Remisol HemeNeutrophils (Bld) [#/Vol]7.4 E9/LNormal2.0 - 7.5 E9/LRemisol Heme Neutrophils/100 WBC (Bld)64.5 %Lbrnel10.0 - 75.0 %Remisol HemePlatelet mean volume (Bld) [Entitic vol]7.5 fLNormal6.4 - 10.8 fLRemisol HemePlatelets (Bld) [#/Vol]285.0 E9/TFobynw352.0 - 500.0 E9/LRemisol HemeRBC (Bld) [#/Vol]4.7 E12/L Normal4.3 - 5.9 E12/LRemisol HemeWBC corrected for nucl RBC Auto (Bld) [#/Vol] 11.5 E9/LHigh4.0 - 11.0 E9/LRemisol YhuqWjwU7oyj 74-77-8664WrI8g (Bld) [Mass fraction]7.3 %High<=5.9University Hospitals Ahuja Medical CenterComment on above:Performed By: #### [id number] #### [facility] [address], [place] [address]Yzoqdz Medicine Office/Clinic Noteon [id number] Medicine Office/Clinic NoteFami Medicine Office/Clinic Note HPI Staff Pato is [...] qWeek, # 12 EA, Refills(s) 0, Pharmacy: [facility] [id number], 160, cm, 10/04/23 8:29:00 EDT, Height/Length Dosing, [...] 12/28/2022 Given influenza virus (more content not included)...[facility] Comment on above:Result Comment: Electronically Signed By: Dandre Burger MD\.br\Date and Time Signed: 10/05/23 08:21 EDTPre-Visit Planningon 10-03-2023 Pre-Visit PlanningPre-Visit Planning From: Krupa Olivera To: Dandre Burger MD; Sent: 10/01/2023 14:28:53 EDT Subject: Pre-Visit Planning Due Date/Time: 10/01/2023 14:28:00 EDT Caller Name: PATO CORRAL; Caller Number: Hailey , M Ut Dr. Burger. During a pre-visit planning chart [...] feel free to contact me at extension [phone]. Thank you! Krupa Olivera LPN From: Tao GTZ, Dandre Taylor To: Krupa Olivera; Sent: 10/03/2023 12:30:22 EDT Subject: RE: Pre-Visit Planning Caller Name: PATO CORRAL; Caller Number: Hailey , M Major depressive disorder, single episode, moderate. Please gunBcbpsg750 [facility] HospitalInterdisciplinary Note - Social Workeron [id number] Note - Clinical Project Coordinator Interdisciplinary Note - Clinical Project Coordinator Consult for positive depression screen received. SW made a tc to patient and left a message for herwith SW's contact information should she wish to discuss concerns and/or needed resources. SW will remain available.[facility] HospitalAmbulatory Visit Summaryon 74-75-1236Itqdjmxiib Visit Summary Ambulatory Visit Summary PATO CORRAL [...] physician if questions or concerns Misc Prescription (Storypanda Kailey 2 Sensor) amlodipine (amLODIPine 5 mg [...] EDT With: Tao GTZ, Dandre Taylor Where: [facility] [address] [place] [address]- \.br\ Medications\.br\ What How Much When Why Instructions\.br\ Changed dulaglutide (Trulicity Pen 3 mg/ 0.5 mL subcutaneous solution) 3 Milligram Subcutaneous Every week Pickup at [facility] [id number]\.br\ Unchanged amlodipine (amLODIPine5 mg Tab) 1 Tablets By Mouth Every day Contact prescribing physician if questions or concerns \.br\ Unchanged aspirin (aspirin 81 mg Oral EC Tab) 1 Tablets By Mouth Every day Contact prescribing physician if questions or concerns \.br\ Unchanged atorvastatin (atorvastatin 80 mg Tab) 1 Tablets By Mouth Every day Contact prescribing physician if questions or concerns \.br\ Unchanged buPROPion (Wellb utrin SR 150 mg Tab-ER) 1 Tablets By Mouth Every day Contact prescribing physician if questions or concerns \.br\ Unchanged carvedilol (carvedilol 25 mg Tab) See instructions 1&1/ 2 orally twice a day Contact prescribing physician if questions or concerns \.br\ Unchanged clobetasol topical (Clobetasol (Eqv- Temovate E) 0.05% topical cream) 1 Application Topical [...] (Basaglar KwikPen 100 units/ mL subcutaneous solution) Seeinstructions inject 30 units subcutaneously twice a day Contact prescribing physician if questions or concerns \.br\ Unchanged metformin-sitagliptin (Janumet 50 mg/ 1000 mg [...] if questions or concerns \.br\ Pharmacy Information\.br\ [facility] [id number]: [address] [place], [place] [id number] [phone]\.br\ Allergies\.br\ No Known Medication Allergies\.br\ Problems\.br\ Ongoing - Any problem thatyou are currently receiving treatment for.\.br\ Back pain\.br\ BMI 36.0-36.9,adult\.br\ Chronic obstructive pulmonary disease\.br\ Cigarette nicotine dependence\.br\ Coronary artery disease\.br\ Depression\.br\ Diabetic nephropathy\.br\ Essential hypertension\.br\ Family history of colon cancer\.br\ CHRISTENSEN (headache)\.br\ Hearing loss\.br\ Hyperlipidemia\.br\ Kidney disease, chronic, stage III (moderate, EGFR 30-59 ml/min)\.br\ Long-term insulin use\.br\ Microcytosis\.br\ KELLY (obstructive sleep apnea)\.br\ Polyneuropathy\.br\ Post- nasal drip\.br\ Retinopathy\.br\ S/P CABG x 3\.br\ Screening for breast cancer\.br\ Screening for malignant neoplasm of colon\.br\ Type 2 diabetes mellitus with hyperlipidemia\.br\ Historical - Any problem that you are no longer receiving treatment for.\.br\ CKD (chronic kidney disease)\.br\ Patient Survey\.br\ You may receive a survey via text or e-mail asking about your office visit. Please share your experience with us by completing your survey. We appreciateyour feedback and thank you for choosing us for your care.\.br\ \.br\[facility] Ahuja Medical CenterFafree hospital for women Medicine Office/Clinic Noteon [phone] Medicine Office/Clinic NoteFafree hospital for women Medicine Office/Clinic Note HPI Staff Pato is [...] qWeek, # 12 EA, Refills(s) 1, Pharmacy: [facility] [id number], 160, cm, 09/13/23 7:24:00 EDT, Height/Length Dosing, [...] release capsule, 60 mg= (more content not included)...[facility] HospitalComment on above:Result Comment: Electronically Signed By: Dandre Burger MD\.br\Date and Time Signed: 09/13/23 07:54 EDTAmbulatory Visit Summaryon 82-38-9804Ytzfptqoqh Visit Summary PATO CORRAL :1960 Visit Date:08/27/2023 Ambulatory Visit Instructions Your Diagnosis Papular rash BMI 33.0-33.9,adult Former smoker Your Care Team Attending Physician - JANET KEEN CNP Primary Care Physician - Dandre Burger MD This Is Your Medications List [facility] Prescription (Storypanda Kailey 2 Sensor) amlodipine (amLODIPine 5 mg [...] EDT With: Tao GTZ, Dandre Taylor Where: [place] [phone]- \.br\ Medications\.br\ What How Much When Why Instructions\.br\ New clobetasol topical (Clobetasol (Eqv-Temovate E) 0.05% topical cream) 1 Application Topical 2 times a day Papular rash Refills: 1 Pickup at [facility] #[id number]\.br\ Unchanged amlodipine (amLODIPine 5 mg Tab) 1 [...] Mouth Every day as needed for for constipation\.br\ Unch anged dulaglutide (Trulicity Pen 1.5 mg/ 0.5 mL subcutaneous solution) 1.5 Milligram Subcutaneous Every week\.br\ Unchanged duloxetine (Cymbalta 60 mg oral delayed release capsule) 1 Capsules By Mouth Every day\.br\ Unchanged gabapentin (gabapentin 400 mg Cap) 1 Capsules By Mouth 3 times a day\.br\Unchanged glimepiride (Amaryl 4 mg Tab) 1 Tablets By Mouth 2 times a day\.br\ Unchanged insulin glargine (Basaglar KwikPen 100 units/ mL subcutaneous solution) See instructions inject 30 units subcutaneously twice a day \.br\ Unchanged isosorbide mononitrate (isosorbide mononitrate 30 mg ER Tab) 1 Tablets By Mouth Every day\.br\ Unchanged metformin-sitagliptin (Janumet 50 mg/ 1000 mg oral tablet)1 Tablets By Mouth 2 times a day\.br\ Unchanged Misc Prescription (FreeStyle Kailey 2 Sensor) See instructions Apply new sensor to upper back arm q 14days \.br\ Unchanged multivitamin (Multi Vitamins oral tablet) 1 Tablets By Mouth Every day\.br\ Pharmacy Information\.br\ [facility] #[id number]: [address] [place] [id number] [phone]\.br\ Allergies\.br\ No Known Medication Allergies\.br\ Problems\.br\ Ongoing - Any problem that you are currently receiving treatment for.\.br\ Back pain\.br\ BMI 36.0-36.9,adult\.br\ Chronic obstructive pulmonary disease\.br\ Cigarette nicotine dependence\.br\ Coronary artery disease\.br\ Depression\.br\ Diabetic nephropathy\.br\ Essential hypertension\.br\ Family history of colon cancer\.br\ CHRISTENSEN (headache)\.br\ Hearing loss\.br\ Hyperlipidemia\.br\ Kidney disease, chronic, stage III (moderate, EGFR 30-59 ml/min)\.br\ Long-term insulin use\.br\ Microcytosis\.br\ KELLY (obstructive sleep apnea)\.br\ Polyneuropathy\.br\ Post-nasal drip\.br\ Retinopathy\.br\ S/P CABG x 3\.br\ Screening for breast cancer\.br\ Screening for malignant neoplasm of colon\.br\Type 2 diabetes mellitus with hyperlipidemia\.br\ Historical - Any problem that you are no longer receiving treatment for.\.br\ CKD (chronic kidney disease)\.br\ Patient Survey\.br\ You may receive asurvey via text or e-mail asking about your office visit. Please share your experience with us by co mpleting your survey. We appreciate your feedback and thank you for choosing us for your care.\.br\ \.br\[facility] Medicine Office/Clinic Noteon [phone] Medicine Office/Clinic NoteHPI Staff Pato is a 63 year old [...] BID, 15 gm, Refill(s) 1, [facility] #[id number], 160, cm, 08/27/23 9:43:00 EDT, Height/Length Dosing, [...] medical support in addressing this problem. Your BMIand weight management will be followed at subsequent [...] Oral, TID isosorbide mon (more content not included)...[facility] Comment on above:Result Comment: Electronically Signed By: JANET KEEN CNP\.br\Date and Time Signed: 08/27/23 15:10 EDTPre-Visit Planningon 08-27-2023 Pre-Visit Planning From: Krupa Olivera To: JANET KEEN CNP; Sent: 08/26/2023 12:59:06 EDT Subject: Pre-Visit Planning Due Date/Time: 08/26/2023 12:59:00 EDT Caller Name: PATO CORRAL; Caller Number: Hailey , Miquel Александр Man. During a pre-visit planning chart [...] feel free to contact me at extension [phone]. Thank you! Krupa Olivera LPN From: JANET KEEN CNP To: Krupa Olivera; Sent: 08/27/2023 10:25:44 EDT Subject: RE: Pre-Visit Planning Caller Name: PATO CORRAL; Caller Number: H , M Please have the patient's pcp address at her next appointment. I saw her for an acute visit [address]-Visit Planning From: Krupa Olivera To: JANET KEEN CNP; Sent: 08/26/2023 13:07:11 EDT Subject: Pre-Visit Planning Due Date/Time: 08/26/2023 13:07:00 EDT Caller Name: ELLIS PATO Love; Caller Number: H , M Александр Man. During a pre-visit planning chart review, I noted the following documentation in the medical record: Current Problem List: Chronic kidney disease, unspecified. 12/14/2022 Office Visit Note: CKD (chronic kidney disease) (N18.9: Chronic kidney disease, unspecified) At this time I am unsure which type of his CKD the patient has. Labs have been ordered. We willfollow-up in 2 weeks. Glomerular filtration rate (GFR): [...] feel free to contact me at extension [phone]. Thank you! Krupa Olivera LPN From: JANET KEEN CNP To: Krupa Olivera; Sent: 08/27/2023 10:25:31 EDT Subject: RE: Pre-Visit Planning Caller Name: ELLISPATO; Caller Number: , Please have the patient's pcp address at her next appointment. I saw her for an acute visit [address]Ambulatory Visit Summaryon [id number] Visit Summary PATO CORRAL :1960 Visit Date:07/05/2023 [...] EDT With: Tao GTZ, Dandre Taylor Where: [facility] [place] [phone]- \.br\ Medications\.br\ What How Much When Instructions\.br\ Changed buPROPion (Wellbutrin SR 150 mg Tab-ER) 1 Tablets By Mouth Every day [facility]at [facility] #[id number]\.br\ Changed duloxetine (Cymbalta 60 mg oral delayed release capsule) 1 CapsulesBy Mouth Every day Pickup at [facility] #57871\.br\ Unchanged gabapentin (gabapentin 400 mg Cap) 1 Capsules By Mouth 3 times a day Pickup at [facility] #[id number]\.br\ Unchanged metformin-sitagliptin (Janumet 50 mg/ 1000 mg oral tablet) 1 Tablets By Mouth 2 times a day Pickup at [facility] #[id number]\.br\ Unchanged amlodipine (amLODIPine 5 mg Tab) 1 Tablets By Mouth Every day Contact prescribing physician if questions or concerns \.br\ Unchanged aspirin (aspirin 81 mg Oral EC Tab) 1 Tablets By Mouth Every day Contact prescribing physician if questions or concerns \.br\ Unchanged atorvastatin (atorvastatin 80 mg Tab) 1 Tablets By Mouth Every day Contact prescribing physician if questions or concerns \.br\Unchanged carvedilol (carvedilol 25 mg Tab) 1.5 Tablets By Mouth 2 times a day Contact prescribing p hysician if questions or concerns \.br\ Unchanged docusate [...] or concerns \.br\ Pharmacy Information\.br\ [facility] #[id number]: [address], [place] [id number] [phone]\.br\ \.br\ What How Much When Comments\.br\ Stop Taking insulin glargine (Basaglar KwikPen 100 units/ mL subcutaneous solution) See instructions inject 30 units subcutaneously twice a day \.br\ Allergies\.br\ No Known Medication Allergies\.br\ Problems\.br\ Ongoing - Any problem that you are currently receiving treatment for.\.br\ Back pain\.br\ BMI 36.0-36.9,adult\.br\ Chronic obstructive pulmonary disease\.br\ Cigarette nicotine dependence\.br\ CKD (chronic kidney disease)\.br\ Coronary artery disease\.br\Depression\.br\ Diabetic nephropathy\.br\ Essential hypertension\.br\ Family history of colon cancer\.br\ CHRISTENSEN (headache)\.br\ Hearing loss\.br\ Hyperlipidemia\.br\ Long-term insulin use\.br\ Microcytosis\.br\ KELLY (obstructive sleep apnea)\.br\ Polyneuropathy\.br\ Post-nasal drip\.br\ Retinopathy\.br\ S/P CABG x 3\.br\ Screening for breast cancer\.br\ Screening for malignant neoplasm of colon\.br\ Smoker\.br\ Type 2 diabetes mellitus with hyperlipidemia\.br\ Patient Survey\.br\ You may receive a survey via text or e- mail asking about your office visit. Please share your experience with us by com pleting your survey. We appreciate your feedback and thank you for choosing us for your care.\.br\ \.br\[facility] Medicine Office/Clinic Noteon [id number] Medicine Office/Clinic NoteHPI Staff Pato is a 62 year old [...] Recent) 3075F 5. 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 Mary's Medical Center, Ironton CampusPre-Certification Formon 92-55-1418Pjy-Certification Form [id number]#1.00TIFCleveland Clinic Lutheran HospitalDexa Scanson 75-51-3378Mkbf Scans [id number]#1.00TIFCleveland Clinic Lutheran HospitalDexa Scanson 79-59-6463Beus Scans [id number]#1.00TIFCleveland Clinic Lutheran HospitalCHEMISTRYOrdered By: Marlena Tse on 62-42-7565RgP9y (Bld) [Mass fraction]7.2 %High<=5.9%[facility] ChemAutoSSCHEMISTRYOrdered By: Edwin Sloan on 52-23-4611Fwxfdru DL <= 20 mg/L (U) [Mass/Vol]61.6 microgram/mLHigh0.0 - 19.0 mcg/mLFT RemisolAlbumin Elph (U) [Mass fraction]86.6 mg/dLInvalid Interpretation CodeST. ANTHONY HOSPITAL [facility] [place] RemisolComment on above:Interpretive Data: The reference range and other method performance specifications have not been established for this test; results should be integrated into the clinical context for interpretation.Creatinine (U) [Mass/Vol]214.9 mg/dLInvalid Interpretation Code [facility] RemisolComment on above:Interpretive Data: The reference range and other method performance specifications have not been established for this test; results should be integrated into the clinical context for interpretation.U Prot/Creat Wxmoh663.00 mg/gm CrHigh0.00 - 200.00 mg/gm CrFOK CENTER [facility] [place] RemisolCHEMISTRY Ordered By: SYSTEM SYSTEM on 32-96-2512Gcxydwr [Mass/Vol]3.6 g/dLNormal3.3 - 5.0 gm/dLFT RemisolAlbumin/Globulin [Mass ratio]1.0 {ratio}Low1.1 - 2.2FTMC RemisolALP [Catalytic activity/Vol]81 [iU]/sEttmij38 - 98 Int._Unit/LFTMC RemisolALT No additional P-5'-P [Catalytic activity/Vol]28 [iU]/dNormal6 - 46 Int._Unit/LFTMC RemisolAnion gap [Moles/Vol]11 mmol/LNormal6 - 16 mEq/LFTMC RemisolAST [Catalytic activity/Vol]25 [iU]/dNormal5 - 43 Int._Unit/LFTMC Remisol Bilirubin [Mass/Vol]0.3 mg/dLNormal0.0 - 1.1 mg/dLFT RemisolCalcium [Mass/Vol] 9.2 mg/dLNormal8.9 - 11.1 mg/dLFT RemisolChloride [Moles/Vol]110 mmol/LNormal 101 - 111 mmol/LFTMC RemisolCholesterol [Mass/Vol]96 mg/hIFly035 - 200 mg/dLFTMC RemisolCholesterol in HDL [Mass/Vol]36 mg/dLInvalid Interpretation CodeFTMC RemisolComment on above:Interpretive Data: HDL > or equal to 60 mg/dL: Low cardiovascular risk HDL < 40 mg/dL : High cardiovascular riskCholesterol in LDL [Mass/Vol]30 mg/dL Normal<=129mg/dLFT RemisolCholesterol in VLDL [Mass/Vol]47 mg/dLHigh7 - 40 mg/dLFT RemisolCO2 [Moles/Vol]23 mmol/ZLdgmpu21 - 31 mmol/LFTMC Remisol Creatinine [Mass/Vol]1.4 mg/dLHigh0.5 - 1.3 mg/dLFT RemisolGFR/1.73 sq M.predicted among non-blacks MDRD (S/P/Bld) [Vol rate/Area]42 mL/min/1.73 m2Low >=59mL/min/1.73 m2ST[facility] [place] Chem SComment on above:Interpretive Data: Chronic kidney disease could be indicated at eGFR's of less than 60 mL/min/1.73m2. Kidney failure is indicated at less than 15 mL/min/1.73m2.Globulin (S) [Mass/Vol]3.6 g/dLNormal1.4 - 4.0 gm/dLFT RemisolGlucose [Mass/Vol]167 mg/jYWmwkeg39 - 199 mg/dLFT RemisolComment on above:Interpretive Data: If this glucose result represents a fasting glucose, interpretation should referto the following reference range: 55-99 mg/dLPotassium [Moles/Vol]4.7 mmol/LNormal3.5 - 5.3 mmol/LFTMC RemisolProtein [Mass/Vol]7.2 g/dLNormal6.0 - 7.8 gm/dLFT Remisol Sodium [Moles/Vol]139 mmol/DLlvzcs514 - 145 mmol/LFTMC RemisolTriglyceride [Mass/Vol]233 mg/dLHigh<=149mg/dLFT RemisolTSH Qn3.07 m[IU]/LNormal0.34 - 5.60 mcIU/mLFTMC RemisolUrea nitrogen [Mass/Vol]22 mg/dLHigh5 - 21 mg/dLFT Remisol Urea nitrogen/Creatinine [Mass ratio]16 mg/mhRaayeg56 - 20FT RemisolCHEMISTRY Ordered By: Leigh Magana on 90-15-8381CuA6w (Bld) [Mass fraction]9.0 %High <=5.9%[facility] ChemAutoSSHEMATOLOGYOrdered By: SYSTEM SYSTEM on 12-14-2022 Basophils/100 WBC (Bld)0.6 %Normal0.0 - 2.0 %[facility] HemeAutoSSBasophils/Leukocytes Auto (Bld) [Pure # fraction]0.1 E9/LNormal0.0 - 0.2 E9/LFTMC HemeAutoSS Eosinophils/100 WBC (Bld)3.2 %Normal0.0 - 8.0 %[facility] HemeAutoSS Eosinophils/Leukocytes Auto (Bld) [Pure # fraction]0.3 E9/LNormal0.0 - 0.5 E9/L [facility] HemeAutoSSLymphocytes/100 WBC (Bld)28.8 %Vdkgcb67.0 - 50.0 %[facility] HemeAutoSS Lymphocytes/Leukocytes Auto (Bld) [Pure # fraction]2.8 E9/LNormal1.0 - 4.0 E9/L [facility] HemeAutoSSMonocytes/100 WBC (Bld)7.4 %Normal4.0 - 14.0 %[facility] HemeAutoSS Monocytes/Leukocytes Auto (Bld) [Pure # fraction]0.7 E9/LNormal0.2 - 1.0 E9/L [facility] HemeAutoSSNeutrophils/100 WBC (Bld)60.0 %Fcajbp08.0 - 75.0 %[facility] HemeAutoSS Neutrophils/Leukocytes Auto (Bld) [Pure # fraction]5.9 E9/LNormal2.0 - 7.5 E9/L [facility] HemeAutoSSHEMATOLOGYOrdered By: Lizbet Almeida on 61-46-1964Pgphsnrxkqy distribution width (RBC) [Ratio]15.8 %High10.9 - 14.2 %[facility] HemeAutoSSHematocrit (Bld) [Volume fraction]37.6 %Nxfhty35.0 - 46.0 %[facility] HemeAutoSSHemoglobin (Bld) [Mass/Vol]12.1 g/xHDfvlfk84.0 - 16.0 gm/dLFTMC HemeAutoSSMCH (RBC) [Entitic mass]25.7 pgLow27.0 - 34.0 pgFTMC HemeAutoSSMCHC (RBC) [Mass/Vol]32.3 g/dLNormal 31.4 - 36.0 gm/dLFTMC HemeAutoSSMCV (RBC) [Entitic vol]79.6 fLLow80.0 - 100.0 fL [facility] HemeAutoSSPlatelet mean volume (Bld) [Entitic vol]7.2 fLNormal6.4 - 10.8 fL [facility] HemeAutoSSPlatelets (Bld) [#/Vol]281.0 E9/DFnmiei697.0 - 500.0 E9/LFTMC HemeAutoSSRBC (Bld) [#/Vol]4.7 E12/LNormal4.3 - 5.9 E12/LFTMC HemeAutoSSWBC corrected for nucl RBC Auto (Bld) [#/Vol]9.8 E9/LNormal4.0 - 11.0 E9/LFTMC HemeAutoSSCBC AUTO DIFFon [id number] #0.1 103/ulNormal0.0-0.1The Children'S Hospital Of ColumbusComment on above:Performed By: #### CBC ####[facility] [address] [place], [place] [address]Dr.Yilan ChangBasophils/100 WBC (Bld)0.6 %Normal0.2-2.0The [facility]S Hospital Of ColumbusComment on above:Performed By: #### CBC ####[facility] [address] [place], [place] [address]Dr.Princesslan ChangEO #0.3 103/ulNormal0.0-0.7The [facility]S Hospital Of ColumbusComment on above:Performed By: #### CBC ####[facility] Avk[address]wtf[address] [place], [place] [address]Dr.Tremayne ChangEosinophils/100 WBC (Bld)3.9 %Normal 0.9-7.0The Children'S Hospital Of ColumbusComment on above:Performed By: #### CBC ####[facility] Jcoaffcyyq[address] [place], [place] [address]Dr.Tremayne Harrison Erythrocyte distribution width (RBC) [Ratio]14.6 %Ktqehy93.0-15.0The [facility]S Hospital Of ColumbusComment on above:Performed By: #### CBC ####[facility] Sixjeaboyn[address] [place], [place] [address]Dr.Tremayne ChangHematocrit (Bld) [Volume fraction]38.8 %Lflkdm69.0-48.0The [facility]S Hospital Of ColumbusComment on above:Performed By: #### CBC ####[facility] Kqcirgycgi[address] [place], [place] [address]Dr.Tremayne ChangHemoglobin (Bld) [Mass/Vol]12.1 g/dL Caepnu45.0-16.0The [facility] Hospital Of ColumbusComment on above:Performed By: #### CBC ####[facility] Ntjmoyfztx[address] [place], [place] [address]Dr. Trmeayne ChangIG #0.02 10e3/ulNormal0.00-0.03The [facility]S Hospital Of ColumbusComment on above: Performed By: #### CBC ####[facility] Ecqwugqklw[address] [place], [place] [address]Dr.Tremayne ChangIG %0.2 %Normal0.0-0.5The [facility]S Hospital Of ColumbusComment on above:Performed By: #### CBC ####[facility] Ceedqohouf[address] [place] [address].Tremayne HarrisonLYMPH #2.8 103/ulNormal1.2-3.8The [facility]S Hospital Of ColumbusComment on above:Performed By: #### CBC ####[facility] [address] [address]Dr. Tremayne HarrisonLymphocytes/100 WBC (Bld)31.6 %Kyrhym55.5-60.0The [facility] Comment on above:Performed By: #### CBC ####[facility] [address] [address]Dr.Tremayne HarrisonMANUAL DIFF REQNONormalThe Children'S Hospital Of ColumbusComment on above:Performed By: #### CBC ####[facility] Illvreuvbr[address] [place], [place] [address]Dr.Tremayne HarrisonMCH (RBC) [Entitic mass]25.2 pgCritically low26.7-34.0The [facility] Hospital Of ColumbusComment on above:Performed By: #### CBC ####[facility] Zebznaib[address] [place], [place] [address]Dr.Tremayne HarrisonMCHC (RBC) [Mass/Vol]31.2 g/dLNormal 29.9-35.2The [facility] Hospital Of ColumbusComment on above:Performed By: #### CBC ####[facility] Dbzvlticcs[address] [place], [place] [address]Dr. Tremayne HarrisonMCV (RBC) [Entitic vol]80.7 fLCritically low81.0-99.0The [facility]S Hospital Of ColumbusComment on above:Performed By: #### CBC ####[facility] Hvsxtifkne[address] [place], [place] [address]Dr.Tremayne HarrisonMONO #0.8 103/ulNormal0.3-0.8The [facility]S Hospital Of ColumbusComment on above:Performed By: #### CBC ####[facility] Uuiiowypup[address] [place], [place] [address]Dr. Tremayne ChangMonocytes/100 WBC (Bld)8.5 %Normal1.7-12.0The [facility] Comment on above:Performed By: #### CBC ####[facility] [address] [address]Dr.Tremayne HarrisonNEUT #4.9 103/ulNormal1.4-6.5 The [facility]S Hospital Of ColumbusComment on above:Performed By: #### CBC ####[facility] Ufldmdwxat[address] [place], [place] [address]Dr.Tremayne Harrison Neutrophils/100 WBC (Bld)55.2 %Rmijbv13.0-75.0The [facility]S Hospital Of ColumbusComment on above:Performed By: #### CBC ####[facility] Nxfjcvfhnw[address] [place], [place] [address]Dr.Tremayne HarrisonPlatelet mean volume (Bld) [Entitic vol] 8.5 fLCritically low9.5-13.5The [facility] Hospital Of ColumbusComment on above:Performed By: #### CBC ####[facility] Rgqxdxckuv[address] [place], [place] [address]Dr.Tremayne IilxjBXC713 103/zjFnkkpu916-182Jzs [facility] Hospital Of ColumbusComment on above:Performed By: #### CBC ####[facility] Gyacfcqppf[address] [place], [place] [address]Dr.Tremayne ChangRBC4.81 106/ulNormal4.20-5.40The [facility] on above:Performed By: #### CBC ####[facility] Lkslgsmqbr[address] [place], [place] [address]Dr.Tremayne HarrisonWBC8.8 103/ul Normal4.0-11.0The [facility] Valley Hospitalment on above:Performed By: #### CBC ####[facility] Cmdsldouvm[address] [place], [place] [address]Dr. Tremayne HarrisonCT CHEST W CONon 55-38-6066IB CHEST W CONEXAMINATION: CT CHEST W CON HISTORY: Chest pain. COMPARISON: XR [...] of liver is recommended. Electronically authenticated by: [facility] Date: 2022-07-28 17:05NoUniversity Hospitals Parma Medical CenterD-DIMERon 18-58-0847V-DIMER0.37 mg/L FEUNormal<=0.59The [facility] Hospital Of ColumbusComment on above:Performed By: #### DDIM #### [facility] [address] [place] [address] Dr. Tremayne Mendez-DIMER COMMENTSSEE BELOWLima Memorial Hospitalment on above:Result Comment: Increases in D-Dimer concentration observed with thromboembolic events [...] stress, and generalized hospitalization. Performed By: #### DDIM #### [facility] [address] [address] [address] Tremayne HarrisonPROF 14(COMP METB)on 98-93-5233Atgbiuv [Mass/Vol]3.2 g/dL Critically low3.4-5.0The [facility]S Hospital Of ColumbusComment on above:Performed By: #### CMP, HSTROPN #### [facility] [address] [address] [address] Tremayne HarrisonAlbumin/Globulin [Mass ratio]0.8 {ratio}NormalThe Children'S Hospital Of ColumbusComment on above:Performed By: #### CMP, HSTROPN #### [facility] [address] [place] [address] Dr. Tremayne Espitia [Catalytic activity/Vol]98 U/JFmnjjp81-129Qlp [facility] Hospital Of ColumbusComment on above:Performed By: #### CMP, HSTROPN #### [facility] [address] [place] [address] Dr. Tremayne Mccall [Catalytic activity/Vol]38 U/JCljuxy97-32Kbj [facility] Hospital Of ColumbusComment on above:Performed By: #### CMP, HSTROPN #### [facility] [address] [place] [address] Dr. Tremayne Navarro gap [Moles/Vol]12.2 mmol/LNormalThe [facility] Comment on above:Performed By: #### CMP, HSTROPN #### [facility] [address] [place] [address] Dr. Tremayne Salazar [Catalytic activity/Vol]19 U/MOumjat36-56Tdv [facility] Hospital Of ColumbusComment on above:Performed By: #### CMP, HSTROPN #### [facility] [address] [place] [address] Dr. Tremayne HarrisonBilirubin [Mass/Vol]0.5 mg/dLNormal0.2-1.0[facility] Comment on above:Performed By: #### CMP, HSTROPN #### [facility] [address] [place] [address] Dr. Tremayne HarrisonCalcium [Mass/Vol]9.6 mg/dLNormal8.5-10.1[facility] Comment on above:Performed By: #### CMP, HSTROPN #### [facility] [address] [place] [address] Dr. Tremayne HarrisonChloride [Moles/Vol]106 mmol/AAzhzie86-493Qmd [facility] Comment on above:Performed By: #### CMP, HSTROPN #### [facility] [address] [place] [address] Dr. Tremayne HarrisonCO2 [Moles/Vol]27.5 mmol/OXiihfb47.0-32.0The [facility] Comment on above:Performed By: #### CMP, HSTROPN #### [facility] [address] [place] [address] Dr. Tremayne HarrisonCreatinine [Mass/Vol]1.15 mg/dLCritically high0.55-1.02The [facility] Hospital Of ColumbusComment on above:Performed By: #### CMP, HSTROPN #### [facility] [address] [place] [address] Dr. Tremayne ChatmanGFR-AF GVDSARZF41 mL/min/1.66u2Trnbmsgamo low>=60The [facility]S Hospital Of ColumbusComment on above:Performed By: #### CMP, HSTROPN #### [facility] [address] [place] [address] Dr. Tremayne ChatmanGFR-NON AF MIUYACON10 mL/min/1.41a5Trbxmocbst low>=60The [facility] Hospital Of ColumbusComment on above:Performed By: #### CMP, HSTROPN #### [facility] [address] [place] [address] Dr. Tremayne HarrisonGlobulin (S) [Mass/Vol]4.1 g/dLNormalThe [facility]'S Hospital Of ColumbusComment on above:Performed By: #### CMP, HSTROPN #### [facility] [address] [address] [address] Tremayne HarrisonGlucose [Mass/Vol]145 mg/dLCritically kghf18-037Jfx [facility] Hospital Of ColumbusComment on above:Performed By: #### CMP, HSTROPN #### [facility] [address] [address] [address] Tremayne HarrisonPotassium [Moles/Vol]4.7 mmol/LNormal3.5-5.1The [facility] Comment on above:Performed By: #### CMP, HSTROPN #### [facility] [address] [address] [address] Tremayne HarrisonProtein [Mass/Vol]7.3 g/dLNormal6.4-8.2The [facility] Comment on above:Performed By: #### CMP, HSTROPN #### [facility] [address] [place] [address] Dr. Tremayne HarrisonSodium [Moles/Vol]141 mmol/DZnmniy671-573Lpq [facility] Comment on above:Performed By: #### CMP, HSTROPN #### [facility] [address] [address] [address] Tremayne HarrisonUrea nitrogen [Mass/Vol]15.0 mg/dLNormal7.0-18.0[facility] HospitalComment on above:Performed By: #### CMP, HSTROPN #### [facility] [address] [place] [address] Dr. Tremayne HarrisonUrea nitrogen/Creatinine [Mass ratio]13.0 mg/mgNormalThe [facility]S Hospital Of ColumbusComment on above:Performed By: #### CMP, HSTROPN #### [facility] [address] [place] [address] Dr. Tremayne Box, HIGH SENSITIVITYon 92-27-1933AZNKSB82.9 pg/mLNormal 4.0-51.3TBethesda North HospitalComment on above:Result Comment: CUT-OFF POINTS HAVE BEEN ESTABLISHED BASED ON THE FOURTH UNIVERSAL DEFINITIONS OF MYOCARDIAL INFARCTION. THE UPPER REFERENCE LIMIT (URL) OF TROPONIN, DEFINED THE 99TH PERCENTILE OF cTnI DISTRIBUTION IN A REFERENCE POPULATION, HAS BEEN CONFIRMED THE DECISION THRESHOLD FOR [place] DIAGNOSIS.Performed By: #### CMP, HSTROPN #### [facility] [address] [place] [address] Dr. Tremayne HarrisonXR CHEST 1 Von 03-99-7554MJ CHEST 1 VEXAM: XR CHEST 1 V at 1436 hours HISTORY: CHEST PAIN, UNSPECIFIED COMPARISON: [...] Electronically authenticated by: PAOLO PHAM Date: 2022-07-28 15:13NoUniversity Hospitals Parma Medical CenterGLYCOHEMOGLOBIN A1Con 87-10-1007BGJ RECOMMENDATIONSEE BELOW NormalThe Children'S Hospital Of ColumbusComment on above:Result Comment: ADA RECOMMENDED LIMIT 4.0 - 6.0 ADA THERAPEUTIC TARGET < 7.0 ACTION SUGGESTED > 7.0Performed By: #### A1C #### [facility] [address] [place] [address] Dr. Tremayne HarrisonGlucose [Mass/Vol]177 mg/dLNoAccess Hospital [place] on above:Performed By: #### A1C #### [facility] [address] [place] [address] Dr. Tremayne HarrisonHbA1c (Bld) [Mass fraction]7.8 %Critically high4.5-6.2The [facility] ColumbusCompromedica char[facility] on above:Performed By: #### A1C #### [facility] [address] [address] [address] Tremayne HarrisonGLYCOHEMOGLOBIN A1Con 33-39-2465CTF RECOMMENDATIONSEE BELOWNormal The [facility] Hospital Of ColumbusCompromedica char[facility] on above:Result Comment: ADA RECOMMENDED LIMIT 4.0 - 6.0 ADA THERAPEUTIC TARGET < 7.0 ACTION SUGGESTED > 7.0Performed By: #### A1C #### [facility] [address] [place] [address] Dr. Tremayne HarrisonGlucose [Mass/Vol]214 mg/dLNoUniversity Hospitals Parma Medical CenterComment on above:Performed By: #### A1C #### [facility] [address] [address] [address] Tremayne HarrisonHbA1c (Bld) [Mass fraction]9.1 %Critically high4.5-6.2The [facility] Hospital Of ColumbusComment on above:Performed By: #### A1C #### [facility] [address] [address] [address] Tremayne HarrisonGLYCOHEMOGLOBIN A1Con 85-07-7368SFA RECOMMENDATIONSEE BELOWNormal [facility] HospitalComment on above:Result Comment: ADA RECOMMENDED LIMIT 4.0 - 6.0 ADA THERAPEUTIC TARGET < 7.0 ACTION SUGGESTED > 7.0Performed By: #### A1C #### [facility] [address] [address] [address] Tremayne HarrisonGlucose [Mass/Vol]223 mg/dLNoUniversity Hospitals Parma Medical CenterComment on above:Performed By: #### A1C #### [facility] [address] [address] [address] Tremayne BarcenasA1c (Bld) [Mass fraction]9.4 %Critically high4.5-6.2The [facility]S Hospital Of ColumbusComment on above:Performed By: #### A1C #### [facility] [address] [address] [address] Tremayne HarrisonMG MAMM SCREEN 3D [place] CADon 91-20-8067BE MAMM SCREEN 3D [place] CAD Patient: PATO CORRAL Exam Date: 10/10/2021 : 1960 Gender:F Ordering : DR GIANFRANCO LAU D.O. Admission #: [id number] Family : Order #: [id number] CLICK HERE TO VIEW EXAM RADIOLOGY REPORT [...] colon cancer at age 57. LOCATION: [facility] BREAST COMPOSITION: Scattered areas fibroglandular density. FINDINGS: [...] by: Isi Danielle M.D. on 10/10/2021 at 11:14[facility] HospitalMICROALBUMIN, RAND URon 77-75-8784mAZB01.1 mg/LNormal<=30.0The [facility] Bl[facility] Hospitalment on above:Performed By: #### MALBR ####[facility] [address] [address]Dr. Tremayne HarrisonPROF 14(COMP METB)on 95-69-7375Xqtzaeq [Mass/Vol]3.2 g/dLCritically low3.4-5.0The [facility] Hospital Of ColumbusComment on above:Performed By: #### CMP #### [facility] [address] [address] [address] Tremayne HarrisonAlbumin/Globulin [Mass ratio]0.9 {ratio}NormalThe [facility]'S Hospital Of ColumbusCompromedica charles and [facility] on above:Performed By: #### CMP #### [facility] [address] [address] [address] Tremayne Espitia [Catalytic activity/Vol]103 U/NUiiuzf08-978Iie [facility] on above:Performed By: #### CMP #### [facility] [address] [address] [address] Tremayne Mccall [Catalytic activity/Vol]36 U/NOmrkfp67-44VzxAultman HospitalComment on above:Performed By: #### CMP #### [facility] [address] [address] [address] Tremayne Navarro gap [Moles/Vol]11.8 mmol/LNormalAultman Hospital Comment on above:Performed By: #### CMP #### [facility] [address] [address] [address] Tremayne HarrisonAST [Catalytic activity/Vol]18 U/PDpyiwt96-26Inn [facility] Hospital Of ColumbusComment on above:Performed By: #### CMP #### [facility] [address] [address] [address] Tremayne HarrisonBilirubin [Mass/Vol]0.3 mg/dLNormal0.2-1.0[facility] Comment on above:Performed By: #### CMP #### [facility] [address] [address] [address] Tremayne HarrisonCalcium [Mass/Vol]8.7 mg/dLNormal8.5-10.1[facility] Comment on above:Performed By: #### CMP #### [facility] [address] [address] [address] Tremayne HarrisonChloride [Moles/Vol]106 mmol/CIwdhgw33-074JcnAultman Hospital Comment on above:Performed By: #### CMP #### [facility] [address] [address] [address] Tremayne HarrisonCO2 [Moles/Vol]25.6 mmol/UVablev95.0-32.0[facility] Comment on above:Performed By: #### CMP #### [facility] [address] [address] [address] Tremayne HarrisonCreatinine [Mass/Vol]1.09 mg/dLCritically high0.55-1.02The [facility] Hospital Of ColumbusComment on above:Performed By: #### CMP #### [facility] [address] [address] [address] Casper ChangEGFR-AF MOLDOVAN>60Normal>=60The [facility]S Hospital Of ColumbusComment on above:Performed By: #### CMP #### [facility] [address] [address] [address] Tremayne ChatmanGFR-NON AF DEJGDECX17 mL/min/1.10k1Slfvqkelxg low>=60The [facility] Hospital Of ColumbusComment on above:Performed By: #### CMP #### [facility] [address] [address] [address] Tremayne HarrisonGlobulin (S) [Mass/Vol]3.6 g/dLNormUK HealthcareComment on above:Performed By: #### CMP #### [facility] [address] [address] [address] Tremayne HarrisonGlucose [Mass/Vol]210 mg/dLCritically jlmp92-352Ixf [facility] Hospital Of ColumbusComment on above:Performed By: #### CMP #### [facility] [address] [address] [address] Tremayne HarrisonPotassium [Moles/Vol]4.4 mmol/LNormal3.5-5.1The [facility] Comment on above:Performed By: #### CMP #### [facility] [address] [address] [address] Tremayne HarrisonProtein [Mass/Vol]6.8 g/dLNormal6.4-8.2The [facility] Comment on above:Performed By: #### CMP #### [facility] [address] [address] [address] Tremayne HarrisonSodium [Moles/Vol]139 mmol/FVsfifp574-501Klc [facility] Comment on above:Performed By: #### CMP #### [facility] [address] [address] [address] Tremayne HarrisonUrea nitrogen [Mass/Vol]15.0 mg/dLNormal7.0-18.0The [facility] Hospital Of ColumbusComment on above:Performed By: #### CMP #### [facility] [address] [address] [address] Tremayne HarrisonUrea nitrogen/Creatinine [Mass ratio]13.8 mg/mgNoUniversity Hospitals Parma Medical CenterComment on above:Performed By: #### CMP #### [facility] [address] [place], [place] [address] Dr. Tremayne Thomas STRESS TESTon 82-50-9377WEUVHXL STRESS TESTThe [place], [place] NAME: PATO CORRAL DATE OF : MEDICAL REC#: [id number] [employer]ARD[employer] OPERATOR FORMING: [address] [facility], TRANSADMIT DATE: 08/18/2021 09:35:00 [employer] DATE: 08/18/2021 19:00 DICTATING PHYSICIAN: MARTINE MCINTOSH [...] and Approved by: DR MARTINE MCINTOSH 08/24/2021 10:13:00[facility] HospitalNM STRESS/REST MULTIon 08-18-2021 NM STRESS/REST MULTIPatient: PATO CORRAL Exam Date: 08/18/2021 : 1960 Gender:F Ordering : RAJINDER MOHAMUD Admission #: [id number] Family : Order #: [id number] CLICK HERE TO VIEW EXAM RADIOLOGY REPORT [...] by: Art Cross MD on 08/18/2021 at 14:36[facility] Pulmonary Functionon 61-15-0936Piuvalesp FunctionMR #: [id number] [facility] PT. Name: Pato Corral Date: 04/25/2018 Date [...] P/Tierra Corral M.D. Date Trans: 05/14/2018 04:38 Dulce/emily DN_JN:[id number] cc: Gianfranco Lau D.O. [address] [facility] [address]XupdvhYupBarnesville Hospital GLUCOSE LABon 32-77-4892Frtjnsi mass vnqb671 mg/wHKwis51-534Xjp [facility] Medical CenterComment on above:Performed By: #### [id number] #### [address] [place] [address], [facility] HOSPITALGlucose mass ivbc872 mg/vRHyta97-810Zsy [facility] CenterComment on above:Order Comment: No: Do not add to previous drawPerformed By: #### [id number] #### [facility] [address] [place] [address], USAGlucose mass ucjs926 mg/mEPxri32-800Hhx [facility] CenterComment on above:Performed By: #### [id number] #### [facility] [address] [place] [address], USABASIC METABOLIC PANELon 21-63-8609Jbjoaew mass conc8.0 mg/dLLow8.6-10.3The [facility] Medical CenterComment on above:Order Comment: No: Do not add to previous drawPerformed By: #### [id number] #### [facility] [address] [place] [address], USAChloride molar djdw821 mmol/VGibdvy41-588Acl [facility] CenterComment on above:Order Comment: No: Do not add to previous drawPerformed By: #### [id number] #### [facility] [address] [place] [address], USACO2 molar conc29 mmol/FIysebt17-15Zyr [facility] CenterComment on above:Order Comment: No: Do not add to previous draw Performed By: #### [id number] #### [facility] [address] [place] [address], USACreatinine mass conc0.74 mg/dLNormal0.60-1.20The [facility] CenterComment on above:Order Comment: No: Do not add to previous drawPerformed By: #### [id number] #### [facility] [address] [place] [address], USAGFR/1.73 sq M predicted among blacks MDRD vol rate/area (S/P/Bld)mL/min/{1.73_m2}Normal>60The [facility] Medical CenterComment on above:Order Comment: No: Do not add to previous drawPerformed By: #### [id number] #### [facility] [address] [place] [address], USAGFR/1.73 sq M predicted among non-blacks MDRD vol rate/area (S/P/Bld)mL/min/{1.73_m2}Normal>60The [facility] CenterComment on above:Order Comment: No: Do not add to previous drawPerformed By: #### [id number] #### [facility] [address] [place] [address], USAGlucose mass wior829 mg/sHHhau83-126Hgb [facility] CenterComment on above:Order Comment: No: Do not add to previous drawPerformed By: #### [id number] #### [facility] [address] [place] [address], USAPotassium molar conc3.6 mmol/LNormal3.5-5.1The [facility] CenterComment on above:Order Comment: No: Do not add to previous drawPerformed By: #### [id number] #### [facility] [address] [place] [address], USASodium molar mivw546 mmol/OEnx448-967Hsv [facility] CenterComment on above:Order Comment: No: Do not add to previous drawPerformed By: #### [id number] #### [facility] [address] [place] [address], USAUrea nitrogen mass conc15 mg/dLNormal7-25The [facility] CenterComment on above:Order Comment: No: Do not add to previous drawPerformed By: #### [id number] #### [facility] [address] [place] [address], USACBC COMPLETE BLOOD COUNTon 94-08-3120Eamaacqtxyw distribution width Ratio (RBC)15.1 %High11.5-15.0The [facility] Medical CenterComment on above:Order Comment: No: Do not add to previous draw Performed By: #### [id number] #### [facility] [address] [place] [address], [facility] HOSPITALHematocrit Volume Fraction (Bld)23.7 %Low36.0-45.0The [facility] CenterComment on above:Order Comment: No: Do not add to previous drawPerformed By: #### [id number] #### [facility] [address] [place] [address], [facility] HOSPITALHemoglobin mass conc (Bld)8.0 g/dLLow12.0-15.0The [facility] CenterComment on above:Order Comment: No: Do not add to previous drawPerformed By: #### [id number] #### [facility] [address] [place] [address], [facility] Entitic mass (RBC)27.6 zdHwpluf49.0-33.0The [facility] CenterComment on above:Order Comment: No: Do not add to previous drawPerformed By: #### [id number] #### [facility] [address] [place] [address], [facility] HOSPITALMCHC mass conc (RBC)33.8 g/zUMdjvjo81.0-35.0The [facility] CenterComment on above:Order Comment: No: Do not add to previous drawPerformed By: #### [id number] #### [facility] [address] [place] [place] [address], [facility] Entitic volume (RBC)81.7 fLLow82.0-98.0The [facility] CenterComment on above:Order Comment: No: Do not add to previous drawPerformed By: #### [id number] #### [facility] [address] [place] [address], USANucleated RBC/100 WBC Ratio (Bld)0 %Normal0-0The [facility] CenterComment on above:Order Comment: No: Do not add to previous drawPerformed By: #### [id number] #### [facility] [address] [facility] [place] [address], USAPLAT RFW072 10*3/vWQvuazz040-592Liz [facility] CenterComment on above:Order Comment: No: Do not add to previous draw Performed By: #### [id number] #### [facility] [address] [place] [place] [address], USARBC #/vol (Bld)2.90 10*6/uLLow3.80-5.00The [facility] CenterComment on above:Order Comment: No: Do not add to previous drawPerformed By: #### [id number] #### [facility] [address] [facility] [place] [address], USAWBC #/vol (Bld)10.78 10*3/uLHigh4.00-10.60The [facility] CenterComment on above:Order Comment: No: Do not add to previous drawPerformed By: #### [id number] #### [facility] [address] [place] [address], USAMAGNESIUM BLOODon 04-17-9654Cjwuigzhu mass conc1.6 mg/dLLow 1.9-2.7The [facility] CenterComment on above:Order Comment: No: Do not add to previous drawPerformed By: #### [id number] #### [facility] [address] [place] [address], USAPOC GLUCOSE LABon 83-94-0082Avzhoai mass mesp842 mg/dLHigh 70-100The [facility] CenterComment on above:Performed By: #### [id number] #### [facility] [address] [place] [address], USAGlucose mass jara173 mg/fMSyec24-077Chu [facility] CenterComment on above:Performed By: #### [id number] #### [facility] [address] [place] [address], USAGlucose mass xqap307 mg/wWYnpg71-356Neu [facility] CenterComment on above:Performed By: #### [id number] #### [facility] [address] [place] [address], USAGlucose mass nbkg880 mg/kDDxwl07-866Mnp [facility] CenterComment on above:Performed By: #### 94905 #### [facility] [address] [place] [address], USAGlucose mass opxh200 mg/kLWpkg09-381Epa [facility] CenterComment on above:Performed By: #### [id number] #### [facility] [address] [place] [address], USAPORTABLE CHEST 1 VIEWon 85-46-9782ETRYVOWC CHEST 1 VIEW [facility] Department of Radiology [address] [place] [id number] Patient Name: PATO CORRAL : 1960 Sex: F Age: Race: White Pt. Location: [address] [place] [address] Patient Status: I Ordered Date: 05/02/2018 5:00:00 AM Completed Date: 05/02/2018 06:43 AM Requesting Provider: KAREN RUVALCABA Attending Provider: KAREN RUVALCABA Report Copy To: Signs & Symptoms: Post CABG History: Patient history not available Comments: R/O Atelectasis Exam: PORTABLE CHEST 1 VIEW PORTABLE CHEST 1 VIEW 05/02/2018 6:43 AM [...] unchanged. Electronically signed by:Antwon Groves. Transcribed by: [id number], User Resident: Electronically Signed by: ANTWON GROVES @ 05/02/2018 06:59 AMNormalThe [facility] CenterComment on above:Order Comment: No: Do not add to previous drawBASIC METABOLIC PANELon 80-90-3238Hhuqlzi mass conc8.0 mg/dL Low8.6-10.3The [facility] CenterComment on above:Order Comment: No: Do not add to previous drawPerformed By: #### [id number] #### [facility] [address] [place] [address], USAChloride molar wldp161 mmol/SMsfjtl79-970Yej [facility] CenterComment on above:Order Comment: No: Do not add to previous drawPerformed By: #### [id number] #### [facility] [address] [place] [address], USACO2 molar conc27 mmol/XJrmurc83-92Trq [facility] CenterComment on above:Order Comment: No: Do not add to previous draw Performed By: #### 77976 #### [facility] [address] [place] [address], USACreatinine mass conc0.84 mg/dLNormal0.60-1.20The [facility] CenterComment on above:Order Comment: No: Do not add to previous drawPerformed By: #### [id number] #### [facility] [address] [place] [address], USAGFR/1.73 sq M predicted among blacks MDRD vol rate/area (S/P/Bld)mL/min/{1.73_m2}Normal>60The [facility] CenterComment on above:Order Comment: No: Do not add to previous drawPerformed By: #### 20735 #### [facility] [address] [place] [address], USAGFR/1.73 sq M predicted among non-blacks MDRD vol rate/area (S/P/Bld)mL/min/{1.73_m2}Normal>60The [facility] CenterComment on above:Order Comment: No: Do not add to previous drawPerformed By: #### 69851 #### [facility] [address] [place] [address], USAGlucose mass vjzl441 mg/eSAsmn79-512Xjg [facility] CenterComment on above:Order Comment: No: Do not add to previous drawPerformed By: #### 73130 #### [facility] [address] [facility] [place] [address], USAPotassium molar conc4.2 mmol/LNormal3.5-5.1The [facility] CenterComment on above:Order Comment: No: Do not add to previous drawPerformed By: #### 69127 #### [facility] [address] [place] [address], USASodium molar ssjj120 mmol/VDpo462-396Ogg [facility] CenterComment on above:Order Comment: No: Do not add to previous drawPerformed By: #### 84213 #### [facility] [address] [place] [address], USAUrea nitrogen mass conc18 mg/dLNormal7-25The [facility] CenterComment on above:Order Comment: No: Do not add to previous drawPerformed By: #### 82408 #### [facility] [address] [place] [address], USACBC COMPLETE BLOOD COUNTon 77-58-8711Tnbnbqmspvj distribution width Ratio (RBC)15.4 %High11.5-15.0The [facility] CenterComment on above:Order Comment: No: Do not add to previous draw Performed By: #### 50947 #### [facility] [address] [place] [address], [facility] HOSPITALHematocrit Volume Fraction (Bld)21.5 %Low36.0-45.0The [facility] CenterComment on above:Order Comment: No: Do not add to previous drawPerformed By: #### 80306 #### [facility] [address] [place] [address], R[facility]AL HOSPITALHemoglobin mass conc (Bld)7.1 g/dLLow12.0-15.0The [facility] CenterComment on above:Order Comment: No: Do not add to previous drawPerformed By: #### 13298 #### [facility] [address] [place] [address], [facility] Entitic mass (RBC)27.7 fvZfyyfk64.0-33.0The [facility] CenterComment on above:Order Comment: No: Do not add to previous drawPerformed By: #### 91932 #### [facility] [address] [place] [address], R[facility] HOSPITALMCHC mass conc (RBC)33.0 g/hNZvkkqd05.0-35.0The [facility] CenterComment on above:Order Comment: No: Do not add to previous drawPerformed By: #### [id number] #### [facility] [address] [facility] [place] [address], [facility] Entitic volume (RBC)84.0 mMDzczxz67.0-98.0The [facility] CenterComment on above:Order Comment: No: Do not add to previous drawPerformed By: #### 24515 #### [facility] [address] [facility] [place] [address], USANucleated RBC/100 WBC Ratio (Bld)0 %Normal0-0The [facility] CenterComment on above:Order Comment: No: Do not add to previous drawPerformed By: #### 66095 #### [facility] [address] [place] [address], USAPLAT ZET754 10*3/xFJmt151-461Xkt [facility] CenterComment on above:Order Comment: No: Do not add to previous draw Performed By: #### 59432 #### [facility] [address] [place] [address], ROO[facility]AL HOSPITALRBC #/vol (Bld)2.56 10*6/uLLow3.80-5.00The [facility] CenterComment on above:Order Comment: No: Do not add to previous drawPerformed By: #### 95269 #### [facility] [address] [place] [address], ROO[facility]AL HOSPITALWBC #/vol (Bld)11.57 10*3/uLHigh4.00-10.60The [facility] CenterComment on above:Order Comment: No: Do not add to previous drawPerformed By: #### 83324 #### [facility] [address] [place] [address], R[facility] HOSPITALHEMOGLOBINon 74-92-5732Oxeydrqdqk mass conc (Bld)7.3 g/dL Low12.0-15.0The [facility] CenterComment on above:Order Comment: No: Do not add to previous drawPerformed By: #### [id number] #### [facility] [address] [place] [address], USAPOC GLUCOSE LABon 14-83-7529Hletzzm mass yxeo323 mg/dLHigh 70-100The [facility] CenterComment on above:Performed By: #### 45941 #### [facility] [address] [place] [address], USAGlucose mass hgcf444 mg/dLZaut13-777Umt [facility] CenterComment on above:Performed By: #### 18059 #### [facility] [address] [place] [address], USAGlucose mass hujk535 mg/aKKdgi99-603Vun [facility] CenterComment on above:Performed By: #### 57321 #### [facility] [address] [place] [address], USAGlucose mass olxc506 mg/jUEqux37-916Zez [facility] CenterComment on above:Performed By: #### 72446 #### [facility] [address] [place] [address], USAPORTABLE CHEST 1 VIEWon 37-66-6006IDUAHYSX CHEST 1 VIEW [facility] Department of Radiology [address] [place] [id number] Patient Name: PATO CORRAL : 1960 Sex: F Age: Race: White Pt. Location: [id number] Patient Status: I Ordered Date: 05/01/2018 5:00:00 AM Completed Date: 05/01/2018 05:25 AM Requesting Provider: KAREN RUVALCABA Attending Provider: KAREN RUVALCABA Report Copy To: Signs & Symptoms: Post OP History: Patient history not available Comments: R/O Atelectasis Exam: PORTABLE CHEST 1 VIEW PORTABLE CHEST 1 VIEW 05/01/2018 5:25 AM [...] findings. Electronically signed by:Jerry Charles. Transcribed by: [email or web address], User Resident: MACARIO PTAEL Electronically Signed by: JERRY CHARLES @ 05/01/2018 01:37 PM I personally read this/these film(s) with this [facility] HospitalComment on above:Order Comment: No: Do not add to previous drawRBC'S 1 UNITon 17-72-9119FZBFTCGFAC INTERP 1COhioHealth Riverside Methodist HospitalComment on above:Performed By: #### [id number] #### [facility] [address] [place] [address], USAProtein mass qlsd543 g/dLNoLima Memorial HospitalComment on above:Performed By: #### [id number] #### [facility] [address] [place] [address], USAProtein mass concPTNoLima Memorial HospitalComment on above:Result Comment: Result changed by IF on 05/01/2018 10:28. The previous value was XM. Result changed by IF on 05/02/2018 00:30. The previous value was IS.Performed By: #### [id number] #### [facility] [address] [place] [address], USAUNIT ABO 1[facility] Comment on above:Performed By: #### 25250 #### [facility] [address] [place] [address], USAUNIT ID [id number] Memorial HospitalComment on above:Performed By: #### 39659 #### [facility] [address] [place] [address], USAUNIT RH 1PositiveNoLima Memorial HospitalComment on above:Performed By: #### 39784 #### [facility] [address] [place] [address], USATYPE AND SCREENon 30-13-3495IUN INTERPRETATIONONoLima Memorial HospitalComment on above:Performed By: #### 59362 #### [facility] [address] [place] [address], USARH INTERPRETATIONPositiveNoLima Memorial HospitalComment on above:Performed By: #### 64844 #### [facility] [address] [place] [address], USABASIC METABOLIC PANELon 26-12-9244Tvcsmzc mass conc8.2 mg/dLLow8.6-10.3The [facility] CenterComment on above:Order Comment: No: Do not add to previous drawPerformed By: #### 85999 #### [facility] [address] [place] [address], USAChloride molar rkxw282 mmol/RElds76-501Twv [facility] CenterComment on above:Order Comment: No: Do not add to previous drawPerformed By: #### 71454 #### [facility] [address] [place] [address], USACO2 molar conc26 mmol/SAwkdat69-58Wxf [facility] CenterComment on above:Order Comment: No: Do not add to previous draw Performed By: #### 23790 #### [facility] [address] [place] [address], USACreatinine mass conc0.76 mg/dLNormal0.60-1.20The [facility] CenterComment on above:Order Comment: No: Do not add to previous drawPerformed By: #### 80355 #### [facility] [address] [place] [address], USAGFR/1.73 sq M predicted among blacks MDRD vol rate/area (S/P/Bld)mL/min/{1.73_m2}Normal>60The [facility] CenterComment on above:Order Comment: No: Do not add to previous drawPerformed By: #### 64431 #### [facility] [address] [place] [address], USAGFR/1.73 sq M predicted among non-blacks MDRD vol rate/area (S/P/Bld)mL/min/{1.73_m2}Normal>60The [facility] CenterComment on above:Order Comment: No: Do not add to previous drawPerformed By: #### 79627 #### [facility] [address] [place] [address], USAGlucose mass fiqz821 mg/sPMfsr31-703Sdb [facility] CenterComment on above:Order Comment: No: Do not add to previous drawPerformed By: #### 56095 #### [facility] [address] [place] [address], USAPotassium molar conc4.5 mmol/LNormal3.5-5.1The [facility] CenterComment on above:Order Comment: No: Do not add to previous drawPerformed By: #### [id number] #### [facility] [address] [place] [address], USASodium molar sbya179 mmol/ZZudxbi698-338Enk [facility] CenterComment on above:Order Comment: No: Do not add to previous drawPerformed By: #### 17782 #### [facility] [address] [place] [address], USAUrea nitrogen mass conc16 mg/dLNormal7-25The [facility] CenterComment on above:Order Comment: No: Do not add to previous drawPerformed By: #### 44361 #### [facility] [address] [place] [place] [address], [facility] HOSPITALCBC COMPLETE BLOOD COUNTon 42-90-1122Jbeiuswgcev distribution width Ratio (RBC)15.8 %High11.5-15.0The [facility] CenterComment on above:Order Comment: No: Do not add to previous draw Performed By: #### 55019 #### [facility] [address] [facility] [place] [address], ROO[facility] GENERAL HOSPITALHematocrit Volume Fraction (Bld)24.5 %Low36.0-45.0The [facility] CenterComment on above:Order Comment: No: Do not add to previous drawPerformed By: #### 55915 #### [facility] [address] [facility] [place] [address], ROO[facility] GENERAL HOSPITALHemoglobin mass conc (Bld)8.0 g/dLLow12.0-15.0The [facility] CenterComment on above:Order Comment: No: Do not add to previous drawPerformed By: #### 22046 #### [facility] [address] [facility] [place] [address], USAIMM PLATELET FRAC1.6 %Normal0.8-6.3The [facility] CenterComment on above:Order Comment: No: Do not add to previous draw Performed By: #### 60507 #### [facility] [address] [facility] [place] [address], ROO[facility] HOSPITALMC Entitic mass (RBC)27.8 qfEcufoq85.0-33.0The [facility] CenterComment on above:Order Comment: No: Do not add to previous drawPerformed By: #### 15321 #### [facility] [address] [place] [address], [facility] TULSAHC mass conc (RBC)32.7 g/zXIysypf84.0-35.0The [facility] CenterComment on above:Order Comment: No: Do not add to previous drawPerformed By: #### 20052 #### [facility] [address] [place] [address], [facility] Entitic volume (RBC)85.1 eRQmoiks10.0-98.0The [facility] CenterComment on above:Order Comment: No: Do not add to previous drawPerformed By: #### 23821 #### [facility] [address] [place] [address], ROO[facility] GENERAL HOSPITALNucleated RBC/100 WBC Ratio (Bld)0 %Normal0-0The [facility] CenterComment on above:Order Comment: No: Do not add to previous drawPerformed By: #### 29949 #### [facility] [address] [place] [address], R[facility] GENERAL HOSPITALPLAT CNT98 10*3/kTHag536-355Iuv [facility] CenterComment on above:Order Comment: No: Do not add to previous draw Performed By: #### 61088 #### [facility] [address] [place] [address], ROO[facility] GENERAL HOSPITALRBC #/vol (Bld)2.88 10*6/uLLow3.80-5.00The [facility] CenterComment on above:Order Comment: No: Do not add to previous drawPerformed By: #### 33558 #### [facility] [address] [place] [address], ROO[facility] GENERAL HOSPITALWBC #/vol (Bld)14.45 10*3/uLHigh4.00-10.60The [facility] CenterComment on above:Order Comment: No: Do not add to previous drawPerformed By: #### 91092 #### [facility] [address] [place] [address], USAMAGNESIUM BLOODon 10-87-2896Lizxvutna mass conc2.2 mg/dL Normal1.9-2.7The [facility] CenterComment on above:Performed By: #### 97728 #### [facility] [address] [place] [address], USAPOC GLUCOSE LABon 64-44-6448Vhnhane mass bwui820 mg/dLHigh 70-100The [facility] CenterComment on above:Performed By: #### 00001 #### [facility] [address] [place] [address], USAGlucose mass ezzc160 mg/uNBvky90-418Neh [facility] CenterComment on above:Performed By: #### 14992 #### [facility] [address] [place] [address], USAGlucose mass mill073 mg/mQWlnv55-511Iol [facility] CenterComment on above:Performed By: #### 85405 #### [facility] [address] [place] [address], USAGlucose mass tets843 mg/gCMgdm18-668Nxk [facility] CenterComment on above:Performed By: #### 33481 #### [facility] [address] [place] [address], USAGlucose mass lyne218 mg/mODmkj13-356Laf [facility] CenterComment on above:Performed By: #### 79613 #### [facility] [address] [place] [address], USAGlucose mass conc96 mg/kFOglkzs69-468Pdu [facility] CenterComment on above:Performed By: #### 98597 #### [facility] [address] [place] [address], USAGlucose mass lhbv744 mg/vXHjve30-363Bbc [facility] CenterComment on above:Performed By: #### 43200 #### [facility] [address] [place] [address], USAGlucose mass lvyp976 mg/hBAdjq09-669Usu [facility] CenterComment on above:Performed By: #### 76556 #### [facility] [address] [place] [address], USAGlucose mass utnj917 mg/iYVtcz75-454Cpr [facility] CenterComment on above:Performed By: #### 76090 #### [facility] [address] [place] [address], USAPORTABLE CHEST 1 VIEWon 51-28-1738VYWZSYRA CHEST 1 VIEW [facility] Department of Radiology [address] [place] [id number] Patient Name: PATO CORRAL : 1960 Sex: F Age: Race: White Pt. Location: [address] [place] [address] Patient Status: I Ordered Date: 04/30/2018 5:00:00 AM Completed Date: 04/30/2018 06:24 AM Requesting Provider: KAREN RUVALCABA Attending Provider: FELIPE HUGO Report Copy To: Signs & Symptoms: Post CABG History: Patient history not available Comments: R/O Atelectasis, cbc Exam: PORTABLE CHEST 1 VIEW PORTABLE CHEST 1 VIEW 04/30/2018 6:24 AM [...] are intact. Interval removal of right-sided IJ [place]Jen catheter. No significant change in positioning of [...] pulmonary vasculature. * Interval removal of right-sided [place]Jen catheter from prior study. Approved by:Rudy Quiñones on 04/30/2018 1:14 PM EST. I, Jerry Charles, have reviewed the images and report and concur with these findings. Electronically signed by:Jerry Charles. Transcribed by: [email or web address], User Resident: RUDY QUIÑONES Electronically Signed by: JERRY CHARLES @ 04/30/2018 01:32 PM I personally read this/these film(s) with this [facility] HospitalComment on above:Order Comment: No: Do not add to previous drawARTERIAL BLOOD GAS WITH ICAon 95-61-0422AKCG EXCESS-1 mmol/FPmwxmb-2-2Rzu [facility] CenterComment on above:Performed By: #### [id number] #### [facility] [address] [place] [address], USADELIVERY SYSTEMSNCSelect Medical Specialty Hospital - YoungstownComment on above:Performed By: #### 51442 #### [facility] [address] [facility] [place] [address], USAHCO3 molar conc (Bld)25 mmol/JYjtrhn17-85Kox [facility] CenterComment on above:Performed By: #### 44221 #### [facility] [address] [facility] [place] [address], USAIONIZED CALCIUM1.23 mmol/LNormal1.13-1.32The [facility] CenterComment on above:Performed By: #### 44924 #### [facility] [address] [place] [address], USALPM4.0 LPMNormal0.5-20.0The [facility] CenterComment on above:Performed By: #### 24280 #### [facility] [address] [place] [address], USAOxygen ppres (Bld)85 mm[Hg]Nnxyql47-952Rnj [facility] CenterComment on above:Performed By: #### 99811 #### [facility] [address] [facility] [place] [address], USAOxygen saturation in Blood96.2 %Ftijev58.0-97.0The [facility] CenterComment on above:Performed By: #### 33841 #### [facility] [address] [facility] [place] [address], CJCLPY422 dgKrDvdm05-18Uop [facility] Comment on above:Performed By: #### [id number] #### [facility] [address] [place] [address], USApH (Bld)7.33 [pH]Low7.35-7.45The [facility] CenterComment on above:Performed By: #### 82665 #### [facility] [facility] [address] [place] [address], USABASE EXCESS-2 mmol/KGdgpva-7-4Mxu [facility] CenterComment on above:Performed By: #### [id number] #### [facility] [address] [place] [address], USADELIVERY SYSTEMSZanesville City HospitalComment on above:Performed By: #### [id number] #### [facility] [address] [place] [address], NLBIIU027 %Kwuvbu81-441Kzg [facility] Comment on above:Performed By: #### [id number] #### [facility] [address] [place] [address], USAHCO3 molar conc (Bld)24 mmol/GTsgghd78-11Quo [facility] CenterComment on above:Performed By: #### 72290 #### [facility] [address] [place] [address], USAIONIZED CALCIUM1.18 mmol/LNormal1.13-1.32The [facility] CenterComment on above:Performed By: #### 41061 #### [facility] [address] [place] [address], USAMIN VOLUME7.6NoLima [facility] Comment on above:Performed By: #### 71320 #### [facility] [address] [place] [address], USAMODALITYSPONTNormSelect Medical [facility] Comment on above:Performed By: #### 75949 #### [facility] [address] [place] [address], USAOxygen ppres (Bld)95 mm[Hg]Hswlmj01-545Xgp [facility] CenterComment on above:Performed By: #### 06932 #### [facility] [address] [place] [address], USAOxygen saturation in Blood95.2 %Fyukil33.0-97.0The [facility] CenterComment on above:Performed By: #### 83030 #### [facility] [address] [place] [address], JDZFNE122 npGsFwuluc08-65Zwp [facility] CenterComment on above:Performed By: #### [id number] #### [facility] [address] [place] [address], USAPEEP8.0 WWJ63GponybAzaLima Memorial Hospital Comment on above:Performed By: #### 90753 #### [facility] [address] [place] [address], USApH (Bld)7.34 [pH]Low7.35-7.45The [facility] CenterComment on above:Performed By: #### 68602 #### [facility] [address] [place] [address], USAPRESSURE BFQQKYP74LrogvfMxo [facility] CenterComment on above:Performed By: #### 61755 #### [facility] [address] [place] [address], USABASIC METABOLIC PANELon 27-47-8862Uutiisf mass conc7.8 mg/dLLow8.6-10.3The [facility] CenterComment on above:Order Comment: No: Do not add to previous drawPerformed By: #### 39872 #### [facility] [address] [place] [address], USAChloride molar xdns679 mmol/FVjav12-235Fxi [facility] CenterComment on above:Order Comment: No: Do not add to previous drawPerformed By: #### 88724 #### [facility] [address] [place] [address], USACO2 molar conc26 mmol/WDjjaoc20-18Zbf [facility] CenterComment on above:Order Comment: No: Do not add to previous draw Performed By: #### 39670 #### [facility] [address] [place] [address], USACreatinine mass conc0.92 mg/dLNormal0.60-1.20The [facility] CenterComment on above:Order Comment: No: Do not add to previous drawPerformed By: #### 78808 #### [facility] [address] [place] [place] [address], USAGFR/1.73 sq M predicted among blacks MDRD vol rate/area (S/P/Bld)mL/min/{1.73_m2}Normal>60The [facility] CenterComment on above:Order Comment: No: Do not add to previous drawPerformed By: #### 40946 #### [facility] [address] [place] [address], USAGFR/1.73 sq M predicted among non-blacks MDRD vol rate/area (S/P/Bld)mL/min/{1.73_m2}Normal>60The [facility] Comment on above:Order Comment: No: Do not add to previous drawPerformed By: #### 57565 #### [facility] [address] [place] [address], USAGlucose mass tzca784 mg/ePNsls02-401Ely [facility] CenterComment on above:Order Comment: No: Do not add to previous drawPerformed By: #### 81624 #### [facility] [address] [place] [address], USAPotassium molar conc4.1 mmol/LNormal3.5-5.1The [facility] CenterComment on above:Order Comment: No: Do not add to previous drawPerformed By: #### 31497 #### [facility] [address] [place] [address], USASodium molar cers995 mmol/OTxzg865-080Crl [facility] CenterComment on above:Order Comment: No: Do not add to previous drawPerformed By: #### 34864 #### [facility] [address] [place] [address], USAUrea nitrogen mass conc19 mg/dLNormal7-25The [facility] CenterComment on above:Order Comment: No: Do not add to previous drawPerformed By: #### 89397 #### [facility] [address] [place] [address], USACARDIAC MAGNESIUM BLOODon 43-81-2603Dkcslfodt mass conc2.0 mg/dLNormal1.9-2.7The [facility] CenterComment on above: Performed By: #### 20309 #### [facility] [address] [place] [address], [facility] HOSPITALCBC COMPLETE BLOOD COUNTon 16-34-7060Wcehskdepnw distribution width Ratio (RBC)15.6 %High11.5-15.0The [facility] CenterComment on above:Order Comment: No: Do not add to previous draw Performed By: #### 60937 #### [facility] [address] [facility] [place] [address], R[facility] GENERAL HOSPITALHematocrit Volume Fraction (Bld)23.3 %Low36.0-45.0The [facility] CenterComment on above:Order Comment: No: Do not add to previous drawPerformed By: #### 96255 #### [facility] [address] [place] [place] [address], R[facility] GENERAL HOSPITALHemoglobin mass conc (Bld)7.9 g/dLLow12.0-15.0The [facility] CenterComment on above:Order Comment: No: Do not add to previous drawPerformed By: #### 98400 #### [facility] [address] [facility] [address], [facility]SAH Entitic mass (RBC)27.4 rmCishra09.0-33.0The [facility] CenterComment on above:Order Comment: No: Do not add to previous drawPerformed By: #### 47042 #### [facility] [address] [facility] [place] [address], [facility] – TULSAHC mass conc (RBC)33.9 g/bSVetlrz26.0-35.0The [facility] CenterComment on above:Order Comment: No: Do not add to previous drawPerformed By: #### 28334 #### [facility] [address] [place] [place] [address], USAMCV Entitic volume (RBC)80.9 fLLow82.0-98.0The [facility] CenterComment on above:Order Comment: No: Do not add to previous drawPerformed By: #### 71543 #### [facility] [address] [place] [address], USANucleated RBC/100 WBC Ratio (Bld)0 %Normal0-0The [facility] CenterComment on above:Order Comment: No: Do not add to previous drawPerformed By: #### 66872 #### [facility] [address] [place] [address], USAPLAT ISF304 10*3/kUNhu189-005Uqb [facility] CenterComment on above:Order Comment: No: Do not add to previous draw Performed By: #### 60091 #### [facility] [address] [place] [address], R[facility]VEL[facility] GENERAL HOSPITALRBC #/vol (Bld)2.88 10*6/uLLow3.80-5.00The [facility] CenterComment on above:Order Comment: No: Do not add to previous drawPerformed By: #### 84313 #### [facility] [address] [place] [address], USAWBC #/vol (Bld)10.49 10*3/uLNormal4.00-10.60The [facility] CenterComment on above:Order Comment: No: Do not add to previous drawPerformed By: #### 89373 #### [facility] [address] [place] [address], USACOOXIMETRYon 23-73-1009OKZV5 %NormalThe [facility] CenterComment on above:Performed By: #### 73633 #### [facility] [address] [place] [address], USAMETHB1 %NormalThe [facility] Comment on above:Performed By: #### 02504 #### [facility] [address] [place] [address], R[facility] GENERAL HOSPITALOxygen saturation in Blood58.9 %Low60.0-80.0The [facility] CenterComment on above:Performed By: #### 29318 #### [facility] [address] [place] [address], USATHB7.9 g/dLLow12.0-15.0The [facility] CenterComment on above:Performed By: #### 07705 #### [facility] [address] [place] [address], [facility] HOSPITALHEMOGLOBINon 31-41-5310Csqbziioxp mass conc (Bld)8.8 g/dL Low12.0-15.0The [facility] CenterComment on above:Order Comment: No: Do not add to previous drawPerformed By: #### 40564 #### [facility] [address] [place] [address], USAMAGNESIUM BLOODon 38-81-8041Jadabouxv mass conc2.3 mg/dL Normal1.9-2.7The [facility] CenterComment on above:Performed By: #### 14433 #### [facility] [address] [place] [address], USAOperative Reporton [id number] ReportMR#: [id number] I [facility] Pt. Name: Pato Corral Room #: [id number] Discharge Date: Birthdate: 1960 OPERATIVE REPORT DATE [...] consent was obtained. COMPLICATIONS: None. DRAINS: Four 19-Botswanan Jluis drains with 1 in the left [...] including radial arterial line, right internal jugular [place]-Jen catheter, and Strickland catheter were placed. General [...] Hemostasis was checked and was secured. Four 19-[place] Jluis drains were then brought into the field, 1 placed in the left pleural space, 1 in the right pleural space, and 2 in the mediastinum, and they were brought out through separate stab incisions and secured to the chest wall with silk sutures. The sternum was then closed with combination of interrupted and xvdhmk-qb-rjtez stainless steel wires. The soft tissues were [...] then checked and was secured, and a 10-B[place]an Jluis drain was then placed in the [...] Ruvalcaba MD Date Trans: 04/29/2018 05:36 A/emily DN_JN:[id number] cc: Gianfranco Lau D.O. [facility] David Nicolas Velazco [facility] [address]AvdiyxAdoBarnesville Hospital GLUCOSE LABon 68-17-6240Tiygifo mass mzlj383 mg/wAFlib85-281Rhi [facility] CenterComment on above:Performed By: #### 78631 #### [facility] [address] [facility] [place] [address], USAGlucose mass qpjh571 mg/rYDcxs90-536Lmv [facility] CenterComment on above:Performed By: #### 42615 #### [facility] [address] [facility] [place] [address], USAGlucose mass lmbo952 mg/lNQnyd31-226Bvv [facility] CenterComment on above:Performed By: #### 85263 #### [facility] [address] [place] [address], USAGlucose mass conc94 mg/wTJoepnv23-414Mhx [facility] CenterComment on above:Performed By: #### 70058 #### [facility] [address] [place] [address], USAGlucose mass lkvo081 mg/xKAslq16-994Saq [facility] CenterComment on above:Performed By: #### 43066 #### [facility] [address] [place] [address], USAGlucose mass zdre152 mg/dBHpkc02-525Lic [facility] CenterComment on above:Performed By: #### 19361 #### [facility] [address] [place] [address], USAGlucose mass vogd677 mg/mFOhtw49-080Fqo [facility] CenterComment on above:Performed By: #### 57988 #### [facility] [address] [place] [address], USAGlucose mass conc97 mg/cOPcmlpw40-794Sxe [facility] CenterComment on above:Performed By: #### 69914 #### [facility] [address] [place] [address], USAGlucose mass huuz268 mg/tPSeum55-061Olc [facility] CenterComment on above:Performed By: #### 09380 #### [facility] [address] [place] [address], USAGlucose mass dvly212 mg/mSUban74-065Nqb [facility] CenterComment on above:Performed By: #### 72157 #### [facility] [address] [place] [address], USAGlucose mass mprk351 mg/iUKqnf43-551Wvj [facility] CenterComment on above:Performed By: #### 94628 #### [facility] [address] [place] [address], USAGlucose mass vyjo713 mg/qUMmla89-229Bwu [facility] CenterComment on above:Performed By: #### 68101 #### [facility] [address] [place] [address], USAGlucose mass tncg890 mg/tEKfwh05-197Hue [facility] CenterComment on above:Performed By: #### 59404 #### [facility] [address] [place] [address], USAGlucose mass abtt389 mg/lCNlzk49-325Huk [facility] CenterComment on above:Performed By: #### 17737 #### [facility] [address] [place] [address], USAGlucose mass bwdk498 mg/rOUqso17-311Xsg [facility] CenterComment on above:Performed By: #### 26906 #### [facility] [address] [place] [place] [address], USAPORTABLE CHEST 1 VIEWon [id number] CHEST 1 VIEW [facility] Department of Radiology [address] [place] [address] Patient Name: PATO CORRAL : 1960 Sex: F Age: Race: White Pt. Location: [id number] Patient Status: I Ordered Date: 04/29/2018 5:00:00 AM Completed Date: 04/29/2018 05:48 AM Requesting Provider: KAREN RUVALCABA Attending Provider: FELIPE HUGO Report Copy To: Signs & Symptoms: Post CABG History: Patient history not available Comments: R/O Atelectasis Exam: PORTABLE CHEST 1 VIEW PORTABLE CHEST 1 VIEW 04/29/2018 5:48 AM EST SIGNS AND SYMPTOMS: Post CABG TECHNOLOGIST COMMENTS: Post CABG 04/28/18 r/o atelectasis per ordering physician QUESTION FOR THE RADIOLOGIST: R/O Atelectasis PROTOCOL: AP(PA) view was obtained. COMPARISON: April 28, 2018. FINDINGS: There is present. For complication crowding of the pulmonary vessels. Interval removal ET and NG tube. Stable positioning of bilateral nasopharynx. Right-sided IJ [place]-Jen with the tip in the main pulmonary [...] findings. Electronically signed by:Jerry Charles. Transcribed by: [id number], User Resident: BABS GAMEZ Electronically Signed by: JERRY CHARLES @ 04/29/2018 03:04 PM I personally read this/these film(s) with this residentSelect Medical Specialty Hospital - YoungstownComment on above:Order Comment: No: Do not add to previous drawPOTASSIUM BLOODon 97-89-0694Fghigfmct molar conc3.9 mmol/LNormal3.5-5.1The [facility] CenterComment on above:Order Comment: No: Do not add to previous drawPerformed By: #### 06363 #### [facility] [address] [place] [address], [facility] HOSPITALPROTHROMBIN TIMEon [id number] Coag RelTime (PPP)1.30 {INR}High0.91-1.16The [facility] CenterComment on above:Order Comment: No: Do not add to previous drawResult Comment: ACCCP RECOMMENDED INR FOR WARFARIN THERAPY ------- CONDITION INR PROPHYLAXIS OF VENOUS THROMBOSIS 2-3 (HIGH-RISK SURGERY) TREATMENT OF VENOUS THROMBOSIS 2-3 TREATMENT OF PULMONARY EMBOLISM 2-3 PREVENTION OF SYSTEMIC EMBOLISM: 2-3 ACUTE MYOCARDIAL INFARCTION TISSUE HEART VALVES VALVULAR HEART DISEASE ATRIAL FIBRILLATION RECURRENT SYSTEMIC EMBOLISM MECHANICAL HEART VALVE 2.5-3.5 FROM: ORAL ANTICOAGULANTS. MECHANISM OF ACTION, CLINICAL EFFECTIVENESS, AND OPTIMAL THERAPEUTIC RANGE. CHEST 1995;108:231S-246S.Performed By: #### [id number] #### [facility] [address] [place] [address], [facility] GENERAL HOSPITALProthrombin time (PT) Coag time (PPP)16.2 sHigh12.3-14.8The [facility] CenterComment on above:Order Comment: No: Do not add to previous drawResult Comment: ALL RESULTS MUST BE INTERPRETED WITH RESPECT TO BLOOD DRAWING ARTIFACT OR DILUTION ERROR OF ANTICOAGULANT AT THE TIME OF SAMPLING.Performed By: #### 46580 #### [facility] [address] [place] [address], USAACTIVATED CLOTTING TIMEon 11-66-5010GSNWBHKJL CLOTTING TIME 121 odjGtyxoq19-712Tkx [facility] CenterComment on above: Performed By: #### 39609 #### [facility] [address] [place] [address], USAACTIVATED CLOTTING [id number] [id number] [facility] CenterComment on above:Performed By: #### 47121 #### [facility] [address] [place] [address], USAACTIVATED CLOTTING [id number] [facility] CenterComment on above:Performed By: #### 71535 #### [facility] [address] [place] [address], USAACTIVATED CLOTTING [id number] [facility] CenterComment on above:Performed By: #### 69758 #### [facility] [address] [place] [address], USAACTIVATED CLOTTING [id number] [facility] CenterComment on above:Performed By: #### 30985 #### [facility] [address] [place] [address], USAACTIVATED CLOTTING [id number] [facility] CenterComment on above:Performed By: #### 16789 #### [facility] [address] [place] [address], USAACTIVATED CLOTTING [id number] [facility] CenterComment on above:Performed By: #### 57672 #### [facility] [address] [place] [address], USAACTIVATED CLOTTING [id number] [facility] CenterComment on above:Performed By: #### 18527 #### [facility] [address] [place] [address], USAACTIVATED CLOTTING [id number] [facility] CenterComment on above:Performed By: #### 53849 #### [facility] [address] [place] [address], USAACTIVATED CLOTTING [id number] [facility] CenterComment on above:Performed By: #### 43134 #### [facility] [address] [place] [address], USAACTIVATED CLOTTING [id number] [facility] CenterComment on above:Performed By: #### 96694 #### [facility] [address] [facility] [place] [address], [facility]AL HOSPITALACTIVATED CLOTTING [id number] [facility] CenterComment on above:Performed By: #### 73303 #### [facility] [address] [place] [place] [address], R[facility]AL HOSPITALACTIVATED CLOTTING [id number] [facility] CenterComment on above:Performed By: #### 25984 #### [facility] [address] [facility] [place] [address], R[facility]AL HOSPITALACTIVATED CLOTTING [id number] [id number] [facility] CenterComment on above:Performed By: #### 44569 #### [facility] [address] [facility] [address], [facility] GENERAL HOSPITALAPTTon 93-68-3749bUGC Coag time (Bld)36.9 sHigh25.0-35.0The [facility] CenterComment on above:Result Comment: ALL RESULTS MUST BE INTERPRETED WITH RESPECT TO BLOOD DRAWING ARTIFACT OR DILUTION ERROR OF ANTICOAGULANT AT THE TIME OF SAMPLING. THE APTT SHOULD NOT BE USED TO MONITOR UNFRACTIONATED HEPARIN THERAPY, THIS LABORATORY NO LONGER HAS AN ESTABLISHED THERAPEUTIC RANGE BASED ON THE APTT. IT IS RECOMMENDED THAT THE [facility] - HEPARIN ASSAY (ANTI-XA ACTIVITY) BE USED FOR THIS PURPOSE.Performed By: #### [id number] #### [facility] [address] [facility] [place] [address], R[facility]T GENERAL HOSPITALARTERIAL BLOOD GAS W/COOXon 69-52-8995YWZA EXCESS-6 mmol/L Low-2-2The [facility] CenterComment on above:Performed By: #### [id number] #### [facility] [address] [place] [place] [address], R[facility] GENERAL HOSPITALCOHB2 %High0-1The [facility] Comment on above:Performed By: #### 01877 #### [facility] [address] [place] [address], USADELIVERY SYSTEMSVENTNoLima Memorial HospitalComment on above:Performed By: #### 59664 #### [facility] [address] [place] [address], AOFXUP079 %Jptgtq57-144Zrr [facility] Comment on above:Performed By: #### 13357 #### [facility] [address] [place] [address], USAHCO3 molar conc (Bld)21 mmol/YQlx64-43Iez [facility] CenterComment on above:Performed By: #### 11415 #### [facility] [address] [place] [address], USAMETHB0.6 %Normal0.0-1.5The [facility] CenterComment on above:Performed By: #### 03612 #### [facility] [address] [place] [address], USAMIN VOLUME7.0NoLima Memorial Hospital Comment on above:Performed By: #### 36176 #### [facility] [address] [place] [address], USAMODALITYSIMVSelect Medical Specialty Hospital - [facility] Comment on above:Performed By: #### [id number] #### [facility] [address] [place] [address], USAOxygen ppres (Bld)82 mm[Hg]Uijqod07-595Vdb [facility] CenterComment on above:Performed By: #### 63062 #### [facility] [address] [place] [address], USAOxygen saturation in Blood93.6 %Low94.0-97.0The [facility] CenterComment on above:Performed By: #### 91383 #### [facility] [address] [place] [address], GIGKUM321 jzJdBxik08-25Vtr [facility] Comment on above:Performed By: #### 31224 #### [facility] [address] [place] [address], USAPEEP8.0 GFP23IrdbxiAxmLima Memorial Hospital Comment on above:Performed By: #### 26047 #### [facility] [address] [place] [address], USApH (Bld)7.25 [pH]Low7.35-7.45The [facility] CenterComment on above:Performed By: #### 83790 #### [facility] [address] [place] [address], USAPRESSURE HXSANBJ5UryjfbIiiSelect Medical Specialty Hospital - YoungstownComment on above:Performed By: #### 00229 #### [facility] [address] [place] [address], APGHHW22.0 g/jHDuxcnj26.0-15.0The [facility] CenterComment on above:Performed By: #### [id number] #### [facility] [address] [place] [address], USATIDAL VOLUME (VT) [id number] Memorial HospitalComment on above:Performed By: #### [id number] #### [facility] [address] [place] [address], USAARTERIAL BLOOD GAS WITH ICAon [id number] EXCESS-2 mmol/SYjklgm-5-0Zti [facility] CenterComment on above: Performed By: #### [id number] #### [facility] [address] [place] [address], USADELIVERY SYSTEMSMVNoLima Memorial HospitalComment on above:Performed By: #### [id number] #### [facility] [address] [place] [address], DITUWU619 %Axhdcd55-649Dqd [facility] Comment on above:Performed By: #### [id number] #### [facility] [address] [place] [address], USAHCO3 molar conc (Bld)24 mmol/IXuarcu83-74Bsh [facility] CenterComment on above:Performed By: #### [id number] #### [facility] [address] [place] [address], USAIONIZED CALCIUM1.14 mmol/LNormal1.13-1.32The [facility] CenterComment on above:Performed By: #### [id number] #### [facility] [address] [place] [address], USAMIN VOLUME7.1NormalThe [facility] Comment on above:Performed By: #### [id number] #### [facility] [address] [place] [address], USAMODALITYSIMVNoLima Memorial Hospital Comment on above:Performed By: #### [id number] #### [facility] [address] [place] [address], USAOxygen ppres (Bld)87 mm[Hg]Xdtpii85-735Eoq [facility] CenterComment on above:Performed By: #### 64836 #### [facility] [address] [place] [address], USAOxygen saturation in Blood94.8 %Sxuehk81.0-97.0The [facility] CenterComment on above:Performed By: #### [id number] #### [facility] [address] [place] [address], JJEVWO081 bzJtVaupnq49-15Oqe [facility] CenterComment on above:Performed By: #### [id number] #### [facility] [address] [place] [address], USAPEEP8.0 IRL10WyaebeWlhSelect Medical Specialty Hospital [facility] [place] Comment on above:Performed By: #### [id number] #### [facility] [address] [place] [address], USAPF KCQMC115 arIzLmltlq86-540Lwh [facility] CenterComment on above:Performed By: #### 06975 #### [facility] [address] [place] [address], USApH (Bld)7.34 [pH]Low7.35-7.45The [facility] CenterComment on above:Performed By: #### [id number] #### [facility] [address] [place] [address], USAPRESSURE WBUUWSV0PgioxkKqfSelect Medical Specialty Hospital - YoungstownComment on above:Performed By: #### [id number] #### [facility] [address] [place] [address], USATIDAL VOLUME (VT) [id number] Memorial HospitalComment on above:Performed By: #### [id number] #### [facility] [address] [place] [address], USABASE EXCESS-4 mmol/LLow-2-2The [facility] CenterComment on above:Order Comment: No: Do not add to previous drawPerformed By: #### [id number] #### [facility] [address] [place] [address], USADELIVERY SYSTEMSMVNoLima Memorial HospitalComment on above:Order Comment: No: Do not add to previous drawPerformed By: #### [id number] #### [facility] [address] [place] [address], GPNINI290 %Omybva62-040Gmt [facility] Comment on above:Order Comment: No: Do not add to previous drawPerformed By: #### [id number] #### [facility] [address] [place] [address], USAHCO3 molar conc (Bld)22 mmol/UQhv46-85Wtm [facility] CenterComment on above:Order Comment: No: Do not add to previous drawPerformed By: #### [id number] #### [facility] [address] [place] [address], USAIONIZED CALCIUM1.15 mmol/LNormal1.13-1.32The [facility] CenterComment on above:Order Comment: No: Do not add to previous drawPerformed By: #### [id number] #### [facility] [address] [place] [address], USAMIN VOLUME7.1NormalThe [facility] Comment on above:Order Comment: No: Do not add to previous drawPerformed By: #### [id number] #### [facility] [address] [place] [address], USAMODALITYSIMVNormalThe [facility] Comment on above:Order Comment: No: Do not add to previous drawPerformed By: #### [id number] #### [facility] [address] [place] [address], USAOxygen ppres (Bld)107 mm[Hg]Critically qrqc53-761Ajz [facility] CenterComment on above:Order Comment: No: Do not add to previous drawPerformed By: #### [id number] #### [facility] [address] [place] [address], USAOxygen saturation in Blood94.9 %Sioppt97.0-97.0The [facility] CenterComment on above:Order Comment: No: Do not add to previous drawPerformed By: #### [id number] #### [facility] [address] [place] [address], JBYQTP167 xhSdLpsafm36-74Klx [facility] CenterComment on above:Order Comment: No: Do not add to previous drawPerformed By: #### [id number] #### [facility] [address] [place] [address], USAPEEP8.0 IOD73YdpahwSvqLima Memorial Hospital Comment on above:Order Comment: No: Do not add to previous drawPerformed By: #### [id number] #### [facility] [address] [place] [address], USApH (Bld)7.33 [pH]Low7.35-7.45The [facility] CenterComment on above:Order Comment: No: Do not add to previous draw Performed By: #### [id number] #### [facility] [address] [place] [address], USAPRESSURE [id number] Memorial HospitalComment on above:Order Comment: No: Do not add to previous drawPerformed By: #### [id number] #### [facility] [address] [place] [address], USATIDAL VOLUME (VT) [id number] Memorial HospitalComment on above:Order Comment: No: Do not add to previous draw Performed By: #### [id number] #### [facility] [address] [place] [address], USABASIC METABOLIC PANELon 67-49-7434Fzpqdpt mass conc8.0 mg/dLLow8.6-10.3The [facility] CenterComment on above:Order Comment: No: Do not add to previous drawPerformed By: #### [id number] #### [facility] [address] [place] [address], USACreatinine mass conc0.91 mg/dLNormal0.60-1.20The [facility] CenterComment on above:Order Comment: No: Do not add to previous drawPerformed By: #### 95640 #### [facility] [address] [place] [address], USAUrea nitrogen mass conc16 mg/dLNormal7-25The [facility] CenterComment on above:Order Comment: No: Do not add to previous drawPerformed By: #### [id number] #### [facility] [address] [place] [address], USAPotassium molar conc4.6 mmol/LNormal3.5-4.9The [facility] CenterComment on above:Order Comment: No: Do not add to previous drawPerformed By: #### [id number] #### [facility] [address] [place] [address], USAPerformed By: #### 98760 #### [facility] [address] [place] [address], USAPerformed By: #### [id number] #### [facility] [address] [place] [address], USACalcium mass conc6.1 mg/dLLow8.6-10.3The [facility] CenterComment on above:Order Comment: No: Do not add to previous drawPerformed By: #### 44553 #### [facility] [address] [place] [address], USAChloride molar ehog314 mmol/TXlvs74-391Syq [facility] CenterComment on above:Order Comment: No: Do not add to previous drawPerformed By: #### [id number] #### [facility] [address] [place] [address], USAPerformed By: #### 91759 #### [facility] [address] [place] [address], USACO2 molar conc22 mmol/XTwzktn28-31Iox [facility] CenterComment on above:Order Comment: No: Do not add to previous draw Performed By: #### [id number] #### [facility] [address] [place] [address], USAPerformed By: #### [id number] #### [facility] [address] [place] [address], USACreatinine mass conc0.90 mg/dLNormal0.60-1.20The [facility] CenterComment on above:Order Comment: No: Do not add to previous drawPerformed By: #### 73774 #### [facility] [address] [place] [address], USAGFR/1.73 sq M predicted among blacks MDRD vol rate/area (S/P/Bld)mL/min/{1.73_m2}Normal>60The [facility] CenterComment on above:Order Comment: No: Do not add to previous drawPerformed By: #### 51259 #### [facility] [address] [place] [address], USAPerformed By: #### [id number] #### [facility] [address] [place] [address], USAGFR/1.73 sq M predicted among non-blacks MDRD vol rate/area (S/P/Bld)mL/min/{1.73_m2}Normal>60The [facility] Comment on above:Order Comment: No: Do not add to previous drawPerformed By: #### 55541 #### [facility] [address] [place] [address], USAPerformed By: #### [id number] #### [facility] [address] [place] [address], USAGlucose mass rhia599 mg/wXSixj13-569Wkt [facility] CenterComment on above:Order Comment: No: Do not add to previous drawPerformed By: #### [id number] #### [facility] [address] [place] [address], USAPotassium molar conc5.1 mmol/LNormal3.5-5.1The [facility] CenterComment on above:Order Comment: No: Do not add to previous drawPerformed By: #### 95212 #### [facility] [address] [place] [address], USASodium molar qhrs433 mmol/CNlbofu171-567Ior [facility] CenterComment on above:Order Comment: No: Do not add to previous drawPerformed By: #### [id number] #### [facility] [address] [place] [address], USAUrea nitrogen mass conc15 mg/dLNormal7-25The [facility] CenterComment on above:Order Comment: No: Do not add to previous drawPerformed By: #### 14574 #### [facility] [address] [place] [address], USASodium molar fjgg477 mmol/AOnysxg649-540Luc [facility] CenterComment on above:Order Comment: No: Do not add to previous drawPerformed By: #### 83588 #### [facility] [address] [place] [address], USAPerformed By: #### 83434 #### [facility] [address] [place] [address], USAGlucose mass gldg351 mg/sCAnkj58-652Gxa [facility] CenterComment on above:Order Comment: No: Do not add to previous drawPerformed By: #### [id number] #### [facility] [address] [place] [address], USAPerformed By: #### 63532 #### [facility] [address] [place] [address], USACBC COMPLETE BLOOD COUNTon 43-66-1474Iblxhcyjjnq distribution width Ratio (RBC)15.5 %High11.5-15.0The [facility] CenterComment on above:Order Comment: on arrival to [facility]: Do not add to previous drawPerformed By: #### 05455 #### [facility] [address] [place] [address], USAHematocrit Volume Fraction (Bld)37.3 %Pgplly02.0-45.0The [facility] CenterComment on above:Order Comment: on arrival to [facility]UNo: Do not add to previous drawPerformed By: #### [id number] #### [facility] [address] [place] [address], [facility] HOSPITALHemoglobin mass conc (Bld)12.3 g/sJImgezv68.0-15.0The [facility] CenterComment on above:Order Comment: on arrival to CVUNo: Do not add to previous drawPerformed By: #### [id number] #### [facility] [address] [place] [address], [facility] Entitic mass (RBC)27.0 cuItgter72.0-33.0The [facility] CenterComment on above:Order Comment: on arrival to CVUNo: Do not add to previous drawPerformed By: #### 31635 #### [facility] [address] [place] [address], [facility]SAHC mass conc (RBC)33.0 g/jAZlvfmy65.0-35.0The [facility] CenterComment on above:Order Comment: on arrival to CVUNo: Do not add to previous drawPerformed By: #### 24025 #### [facility] [address] [place] [address], [facility] Entitic volume (RBC)82.0 bXWuvfll69.0-98.0The [facility] CenterComment on above:Order Comment: on arrival to CVUNo: Do not add to previous drawPerformed By: #### [id number] #### [facility] [address] [place] [address], R[facility]AL HOSPITALPLAT JJT367 10*3/aTZaw098-966Slt [facility] CenterComment on above:Order Comment: on arrival to CVUNo: Do not add to previous drawPerformed By: #### [id number] #### [facility] [address] [place] [address], R[facility] HOSPITALRBC #/vol (Bld)4.55 10*6/uLNormal3.80-5.00The [facility] CenterComment on above:Order Comment: on arrival to CVUNo: Do not add to previous drawPerformed By: #### 47637 #### [facility] [address] [place] [address], [facility] HOSPITALWBC #/vol (Bld)16.06 10*3/uLHigh4.00-10.60The [facility] CenterComment on above:Order Comment: on arrival to CVUNo: Do not add to previous drawPerformed By: #### 01887 #### [facility] [address] [facility] [place] [address], ROO[facility]VELT GENERAL HOSPITALErythrocyte distribution width Ratio (RBC)15.8 %High 11.5-15.0The [facility] CenterComment on above:Performed By: #### 26868 #### [facility] [address] [facility] [address], ROO[facility]EL[facility] GENERAL HOSPITALHematocrit Volume Fraction (Bld)26.4 %Low36.0-45.0The [facility] CenterComment on above:Performed By: #### 15546 #### [facility] [address] [place] [place] [address], ROO[facility] GENERAL HOSPITALHemoglobin mass conc (Bld)8.9 g/dLLow12.0-15.0The [facility] CenterComment on above:Performed By: #### 77797 #### [facility] [address] [facility] [place] [address], ROOSEVELT GENERAL HOSPITALMCH Entitic mass (RBC)27.7 kfUzwdum35.0-33.0The [facility] CenterComment on above:Performed By: #### 06716 #### [facility] [address] [place] [address], ROO[facility] GENERAL HOSPITALMCHC mass conc (RBC)33.7 g/rCIitwai04.0-35.0The [facility] CenterComment on above:Performed By: #### 01710 #### [facility] [address] [place] [address], ROO[facility]VEL[facility] GENERAL HOSPITALMCV Entitic volume (RBC)82.2 hBSirmsd47.0-98.0The [facility] CenterComment on above:Performed By: #### [id number] #### [facility] [address] [place] [address], USANucleated RBC/100 WBC Ratio (Bld)0 %Normal0-0The [facility] CenterComment on above:Order Comment: on arrival to [facility]: Do not add to previous drawPerformed By: #### 46096 #### [facility] [address] [place] [address], USAPLAT CIP310 10*3/nBFoi543-079Iwg [facility] CenterComment on above:Performed By: #### 57589 #### [facility] [address] [place] [address], USARBC #/vol (Bld)3.21 10*6/uLLow3.80-5.00The [facility] CenterComment on above:Performed By: #### 61807 #### [facility] [address] [place] [address], USAWBC #/vol (Bld)12.82 10*3/uLHigh4.00-10.60The [facility] CenterComment on above:Performed By: #### 07986 #### [facility] [address] [place] [address], USAMAGNESIUM BLOODon 02-77-6055Vomjqveyb mass conc2.8 mg/dL High1.9-2.7The [facility] CenterComment on above:Order Comment: No: Do not add to previous drawPerformed By: #### 45551 #### [facility] [address] [place] [address], USAMagnesium mass conc3.1 mg/dLHigh1.9-2.7The [facility] CenterComment on above:Performed By: #### 68205 #### [facility] [address] [place] [address], USAPERFUSION BLOOD PANELon 88-00-4048NNZF EXCESS-6.0 mmol/LLow -2.0-3.0The [facility] CenterComment on above:Performed By: #### 03166 #### [facility] [address] [place] [address], R[facility] GENERAL HOSPITALGlucose mass rqss993 mg/pUXbha51-503Qii [facility] CenterComment on above:Performed By: #### 16726 #### [facility] [address] [place] [address], ROO[facility]VEL[facility] GENERAL HOSPITALHematocrit Volume Fraction (Bld)31 %Ntg63-13Qbg [facility] CenterComment on above:Performed By: #### 73349 #### [facility] [address] [place] [address], USAHemoglobin mass conc (Bld)10.5 g/dLLow12.0-17.0The [facility] CenterComment on above:Performed By: #### 54527 #### [facility] [address] [place] [address], USAIONIZED CALCIUM1.10 mmol/LLow1.12-1.32The [facility] CenterComment on above:Performed By: #### 30635 #### [facility] [address] [place] [address], USAOxygen ppres (Bld)194.0 mm[Hg]High80.0-105.0The [facility] CenterComment on above:Performed By: #### 01391 #### [facility] [address] [place] [address], BDSZDX178.8 cfTrPtgvfb74.0-45.0The [facility] CenterComment on above:Performed By: #### 35169 #### [facility] [address] [place] [address], USApH (Bld)7.32 [pH]Low7.35-7.45The [facility] CenterComment on above:Performed By: #### 05277 #### [facility] [address] [place] [address], USAPotassium molar conc4.3 mmol/LNormal3.5-4.9The [facility] CenterComment on above:Performed By: #### 23477 #### [facility] [address] [place] [address], USASodium molar ascx503 mmol/BMzchqc642-381Nmy [facility] CenterComment on above:Performed By: #### 25309 #### [facility] [address] [place] [address], USABASE EXCESS-15.0 mmol/LLow-2.0-3.0The [facility] CenterComment on above:Performed By: #### [id number] #### [facility] [address] [facility] [place] [address], USAGlucose mass pqct029 mg/xEDufg01-383Vdy [facility] CenterComment on above:Performed By: #### 14621 #### [facility] [address] [place] [address], USAHematocrit Volume Fraction (Bld)19 %Zoa96-95Yuv [facility] CenterComment on above:Performed By: #### 46588 #### [facility] [address] [place] [address], USAHemoglobin mass conc (Bld)6.5 g/dLLow12.0-17.0The [facility] CenterComment on above:Performed By: #### 93897 #### [facility] [address] [place] [address], USAIONIZED CALCIUM0.74 mmol/LCritically low1.12-1.32The [facility] CenterComment on above:Performed By: #### 05249 #### [facility] [address] [place] [address], USAOxygen ppres (Bld)35.0 mm[Hg]NormalThe [facility] CenterComment on above:Performed By: #### [id number] #### [facility] [address] [place] [address], GOXFZW199.7 agHfOjl20.0-51.0The [facility] CenterComment on above:Performed By: #### 41536 #### [facility] [address] [place] [address], USApH (Bld)7.27 [pH]Low7.31-7.41The [facility] CenterComment on above:Performed By: #### 79450 #### [facility] [address] [place] [address], USAPotassium molar conc2.3 mmol/LCritically low3.5-4.9The [facility] CenterComment on above:Performed By: #### [id number] #### [facility] [address] [place] [address], USASodium molar hqqe505 mmol/BPewy227-510Kxh [facility] CenterComment on above:Performed By: #### 60614 #### [facility] [address] [facility] [place] [address], USABASE EXCESS-5.0 mmol/LLow-2.0-3.0The [facility] CenterComment on above:Performed By: #### 64396 #### [facility] [address] [facility] [place] [address], USAGlucose mass fzhc250 mg/iNVawq88-445Tkh [facility] CenterComment on above:Performed By: #### 38157 #### [facility] [address] [place] [address], USAHematocrit Volume Fraction (Bld)27 %Rql98-68Txl [facility] CenterComment on above:Performed By: #### 75184 #### [facility] [address] [place] [address], USAHemoglobin mass conc (Bld)9.2 g/dLLow12.0-17.0The [facility] CenterComment on above:Performed By: #### 56205 #### [facility] [address] [place] [address], USAIONIZED CALCIUM1.17 mmol/LNormal1.12-1.32The [facility] CenterComment on above:Performed By: #### 08587 #### [facility] [address] [place] [address], USAOxygen ppres (Bld)25.0 mm[Hg]NormalThe [facility] CenterComment on above:Performed By: #### 68116 #### [facility] [address] [place] [address], CGMUES030.3 yoNzTmptbb48.0-51.0The [facility] CenterComment on above:Performed By: #### 30054 #### [facility] [address] [place] [address], USApH (Bld)7.26 [pH]Low7.31-7.41The [facility] CenterComment on above:Performed By: #### 82305 #### [facility] [address] [place] [address], USASodium molar eeyo743 mmol/MZjjztc668-488Utw [facility] CenterComment on above:Performed By: #### [id number] #### [facility] [address] [place] [address], USABASE EXCESS-3.0 mmol/LLow-2.0-3.0The [facility] Medical CenterComment on above:Performed By: #### [id number] #### [facility] [address] [place] [address], [facility] HOSPITALGlucose mass pivz114 mg/vJMbxo60-473Spd [facility] CenterComment on above:Performed By: #### [id number] #### [facility] [address] [place] [address], [facility] HOSPITALHematocrit Volume Fraction (Bld)22 %Cml74-29Cwe [facility] CenterComment on above:Performed By: #### [id number] #### [facility] [address] [place] [address], [facility] HOSPITALHemoglobin mass conc (Bld)7.5 g/dLLow12.0-17.0The [facility] CenterComment on above:Performed By: #### [id number] #### [facility] [address] [place] [address], [facility] HOSPITALIONIZED CALCIUM1.22 mmol/LNormal1.12-1.32The [facility] Medical CenterComment on above:Performed By: #### [id number] #### [facility] [address] [place] [address], USAOxygen ppres (Bld)252.0 mm[Hg]High80.0-105.0The [facility] CenterComment on above:Performed By: #### [id number] #### [facility] [address] [place] [address], TNPCKZ337.0 riJiXnszlj52.0-45.0The [facility] CenterComment on above:Performed By: #### [id number] #### [facility] [address] [facility] [address], USApH (Bld)7.35 [pH]Normal7.35-7.45The [facility] CenterComment on above:Performed By: #### [id number] #### [facility] [address] [place] [address], USAPotassium molar conc4.5 mmol/LNormal3.5-4.9The [facility] CenterComment on above:Performed By: #### [id number] #### [facility] [address] [place] [address], USASodium molar jyob850 mmol/IDopjfd202-254Acv [facility] CenterComment on above:Performed By: #### [id number] #### [facility] [address] [place] [address], USABASE EXCESS-4.0 mmol/LLow-2.0-3.0The [facility] Medical CenterComment on above:Performed By: #### [id number] #### [facility] [address] [place] [address], [facility] HOSPITALGlucose mass hrsr546 mg/aONzth18-576Vhn [facility] CenterComment on above:Performed By: #### [id number] #### [facility] [address] [place] [address], USAHematocrit Volume Fraction (Bld)21 %Mjs57-72Ujb [facility] CenterComment on above:Performed By: #### [id number] #### [facility] [address] [place] [address], USAHemoglobin mass conc (Bld)7.1 g/dLLow12.0-17.0The [facility] CenterComment on above:Performed By: #### 63825 #### [facility] [address] [place] [address], USAIONIZED CALCIUM1.24 mmol/LNormal1.12-1.32The [facility] CenterComment on above:Performed By: #### [id number] #### [facility] [address] [place] [address], USAOxygen ppres (Bld)25.0 mm[Hg]NormalThe [facility] CenterComment on above:Performed By: #### 94127 #### [facility] [address] [place] [address], VUNXAD959.9 zbTvTkzsfc49.0-51.0The [facility] CenterComment on above:Performed By: #### 55514 #### [facility] [address] [place] [address], USApH (Bld)7.26 [pH]Low7.31-7.41The [facility] CenterComment on above:Performed By: #### 47597 #### [facility] [address] [place] [address], [facility] HOSPITALPotassium molar conc4.8 mmol/LNormal3.5-4.9The [facility] CenterComment on above:Performed By: #### [id number] #### [facility] [address] [place] [address], USASodium molar tnxd181 mmol/OWrfovv496-319Kyi [facility] CenterComment on above:Performed By: #### 64576 #### [facility] [address] [place] [address], USABASE EXCESS-1.0 mmol/LNormal-2.0-3.0The [facility] CenterComment on above:Performed By: #### [id number] #### [facility] [address] [place] [address], USAGlucose mass hhqj679 mg/jWGuvw81-801Aij [facility] CenterComment on above:Performed By: #### [id number] #### [facility] [address] [place] [address], [facility] HOSPITALHematocrit Volume Fraction (Bld)22 %Rdo87-67Vkx [facility] CenterComment on above:Performed By: #### [id number] #### [facility] [address] [place] [address], USAHemoglobin mass conc (Bld)7.5 g/dLLow12.0-17.0The [facility] CenterComment on above:Performed By: #### 76606 #### [facility] [address] [place] [address], [facility] HOSPITALIONIZED CALCIUM1.46 mmol/LHigh1.12-1.32The [facility] CenterComment on above:Performed By: #### 70222 #### [facility] [address] [place] [address], USAOxygen ppres (Bld)419.0 mm[Hg]High80.0-105.0The [facility] CenterComment on above:Performed By: #### 56541 #### [facility] [address] [place] [place] [address], JSQSES906.5 awUkTbxp58.0-45.0The [facility] CenterComment on above:Performed By: #### [id number] #### [facility] [address] [place] [address], USApH (Bld)7.34 [pH]Low7.35-7.45The [facility] CenterComment on above:Performed By: #### 59677 #### [facility] [address] [place] [address], USAPotassium molar conc4.8 mmol/LNormal3.5-4.9The [facility] CenterComment on above:Performed By: #### 84977 #### [facility] [address] [place] [place] [address], USASodium molar posi211 mmol/HPanmwm884-946Fow [facility] CenterComment on above:Performed By: #### [id number] #### [facility] [address] [place] [address], USABASE EXCESS1.0 mmol/LNormal-2.0-3.0The [facility] CenterComment on above:Performed By: #### 92344 #### [facility] [address] [place] [address], [facility] HOSPITALGlucose mass sdbu309 mg/lXSisc64-030Ekg [facility] CenterComment on above:Performed By: #### [id number] #### [facility] [address] [place] [address], [facility] HOSPITALHematocrit Volume Fraction (Bld)20 %Zse82-01Ctg [facility] CenterComment on above:Performed By: #### 47668 #### [facility] [address] [place] [address], [facility] HOSPITALHemoglobin mass conc (Bld)6.8 g/dLLow12.0-17.0The [facility] CenterComment on above:Performed By: #### [id number] #### [facility] [address] [place] [address], USAIONIZED CALCIUM0.92 mmol/LLow1.12-1.32The [facility] CenterComment on above:Performed By: #### 30734 #### [facility] [address] [place] [address], USAOxygen ppres (Bld)451.0 mm[Hg]High80.0-105.0The [facility] CenterComment on above:Performed By: #### 38289 #### [facility] [address] [place] [address], MVEZUA718.7 vqQaHqnccb23.0-45.0The [facility] CenterComment on above:Performed By: #### 76752 #### [facility] [address] [place] [address], USApH (Bld)7.41 [pH]Normal7.35-7.45The [facility] CenterComment on above:Performed By: #### 41313 #### [facility] [address] [place] [address], [facility] HOSPITALPotassium molar conc4.9 mmol/LNormal3.5-4.9The [facility] CenterComment on above:Performed By: #### 71323 #### [facility] [address] [place] [address], [facility] HOSPITALSodium molar gkwr418 mmol/YUhytfw905-890Eck [facility] CenterComment on above:Performed By: #### 39067 #### [facility] [address] [facility] [place] [address], USABASE EXCESS-3.0 mmol/LLow-2.0-3.0The [facility] CenterComment on above:Performed By: #### [id number] #### [facility] [address] [place] [place] [address], [facility] HOSPITALGlucose mass gftx487 mg/qDRhrn11-076Bsn [facility] CenterComment on above:Performed By: #### [id number] #### [facility] [address] [place] [address], [facility] HOSPITALHematocrit Volume Fraction (Bld)23 %Cth00-16Hdn [facility] CenterComment on above:Performed By: #### [id number] #### [facility] [address] [place] [address], [facility] HOSPITALHemoglobin mass conc (Bld)7.8 g/dLLow12.0-17.0The [facility] CenterComment on above:Performed By: #### 66506 #### [facility] [address] [facility] [place] [address], USAIONIZED CALCIUM0.99 mmol/LLow1.12-1.32The [facility] CenterComment on above:Performed By: #### 65390 #### [facility] [address] [place] [place] [address], USAOxygen ppres (Bld)533.0 mm[Hg]High80.0-105.0The [facility] CenterComment on above:Performed By: #### 11414 #### [facility] [address] [place] [address], KASVMO594.6 tmJcMyyx80.0-45.0The [facility] CenterComment on above:Performed By: #### 98515 #### [facility] [address] [place] [address], USApH (Bld)7.29 [pH]Low7.35-7.45The [facility] CenterComment on above:Performed By: #### 56804 #### [facility] [address] [place] [address], [facility] HOSPITALSodium molar aqlz781 mmol/FJbxuup755-358Qru [facility] CenterComment on above:Performed By: #### 39672 #### [facility] [address] [place] [address], USABASE EXCESS-1.0 mmol/LNormal-2.0-3.0The [facility] CenterComment on above:Performed By: #### 52903 #### [facility] [address] [place] [address], [facility] HOSPITALGlucose mass rbez682 mg/jRFduy60-932Xzo [facility] CenterComment on above:Performed By: #### 07805 #### [facility] [address] [place] [address], [facility] HOSPITALHematocrit Volume Fraction (Bld)20 %Yoq09-38Czq [facility] CenterComment on above:Performed By: #### 74656 #### [facility] [address] [place] [address], [facility] HOSPITALHemoglobin mass conc (Bld)6.8 g/dLLow12.0-17.0The [facility] CenterComment on above:Performed By: #### 84466 #### [facility] [address] [place] [address], USAIONIZED CALCIUM0.97 mmol/LLow1.12-1.32The [facility] CenterComment on above:Performed By: #### 77009 #### [facility] [address] [place] [address], USAOxygen ppres (Bld)474.0 mm[Hg]High80.0-105.0The [facility] CenterComment on above:Performed By: #### 81227 #### [facility] [address] [place] [address], NAIHLZ183.4 nxLjRlqbjl61.0-45.0The [facility] CenterComment on above:Performed By: #### 79352 #### [facility] [address] [place] [address], USApH (Bld)7.39 [pH]Normal7.35-7.45The [facility] CenterComment on above:Performed By: #### 15391 #### [facility] [address] [place] [address], [facility] HOSPITALPotassium molar conc5.0 mmol/LHigh3.5-4.9The [facility] CenterComment on above:Performed By: #### [id number] #### [facility] [address] [place] [address], USASodium molar dcjw706 mmol/FPayejz059-639Vos [facility] CenterComment on above:Performed By: #### 66847 #### [facility] [address] [place] [address], USABASE EXCESS-1.0 mmol/LNormal-2.0-3.0The [facility] CenterComment on above:Performed By: #### 78106 #### [facility] [address] [address], [facility] HOSPITALGlucose mass rbaz710 mg/qOYfah60-378Wrt [facility] CenterComment on above:Performed By: #### 08759 #### [facility] [address] [place] [address], [facility] HOSPITALHematocrit Volume Fraction (Bld)20 %Vlk57-53Bqs [facility] CenterComment on above:Performed By: #### [id number] #### [facility] [address] [place] [address], [facility] HOSPITALHemoglobin mass conc (Bld)6.8 g/dLLow12.0-17.0The [facility] CenterComment on above:Performed By: #### 71818 #### [facility] [address] [facility] [place] [address], [facility] HOSPITALIONIZED CALCIUM1.05 mmol/LLow1.12-1.32The [facility] CenterComment on above:Performed By: #### 05637 #### [facility] [address] [place] [address], [facility] HOSPITALOxygen ppres (Bld)480.0 mm[Hg]High80.0-105.0The [facility] CenterComment on above:Performed By: #### [id number] #### [facility] [address] [place] [address], GLYVKP999.9 joRuIhuqew39.0-45.0The [facility] CenterComment on above:Performed By: #### 96811 #### [facility] [address] [place] [address], USApH (Bld)7.36 [pH]Normal7.35-7.45The [facility] CenterComment on above:Performed By: #### 37126 #### [facility] [address] [place] [address], [facility] HOSPITALPotassium molar conc3.7 mmol/LNormal3.5-4.9The [facility] CenterComment on above:Performed By: #### 84998 #### [facility] [address] [place] [address], USABASE EXCESS-2.0 mmol/LNormal-2.0-3.0The [facility] CenterComment on above:Performed By: #### 36009 #### [facility] [address] [place] [address], [facility] HOSPITALGlucose mass ayod095 mg/eDRvil93-567Pbb [facility] CenterComment on above:Performed By: #### 10355 #### [facility] [address] [facility] [place] [address], [facility] HOSPITALHematocrit Volume Fraction (Bld)17 %Cgk26-09Kle [facility] CenterComment on above:Performed By: #### [id number] #### [facility] [address] [facility] [place] [address], [facility] HOSPITALHemoglobin mass conc (Bld)5.8 g/dLCritically low12.0-17.0 The [facility] CenterComment on above:Performed By: #### 33151 #### [facility] [address] [facility] [place] [address], [facility] HOSPITALIONIZED CALCIUM0.95 mmol/LLow1.12-1.32The [facility] CenterComment on above:Performed By: #### 48344 #### [facility] [address] [place] [address], USAOxygen ppres (Bld)482.0 mm[Hg]High80.0-105.0The [facility] CenterComment on above:Performed By: #### [id number] #### [facility] [address] [facility] [place] [address], XCBRQN869.4 uwHgBsmtbv87.0-45.0The [facility] CenterComment on above:Performed By: #### 95714 #### [facility] [address] [facility] [place] [address], USApH (Bld)7.35 [pH]Normal7.35-7.45The [facility] CenterComment on above:Performed By: #### 91837 #### [facility] [address] [place] [address], USAPotassium molar conc4.5 mmol/LNormal3.5-4.9The [facility] CenterComment on above:Performed By: #### 65442 #### [facility] [address] [place] [address], USASodium molar ioxo801 mmol/WGwheqv205-844Xmf [facility] CenterComment on above:Performed By: #### [id number] #### [facility] [address] [facility] [place] [address], USABASE EXCESS-6.0 mmol/LLow-2.0-3.0The [facility] CenterComment on above:Performed By: #### 38867 #### [facility] [address] [facility] [place] [address], USAGlucose mass oyzn875 mg/gZCuup44-670Lks [facility] CenterComment on above:Performed By: #### 39441 #### [facility] [address] [place] [address], USAHematocrit Volume Fraction (Bld)22 %Uaa68-04Ndh [facility] CenterComment on above:Performed By: #### [id number] #### [facility] [address] [place] [address], USAHemoglobin mass conc (Bld)7.5 g/dLLow12.0-17.0The [facility] CenterComment on above:Performed By: #### [id number] #### [facility] [address] [place] [address], USAIONIZED CALCIUM1.14 mmol/LNormal1.12-1.32The [facility] CenterComment on above:Performed By: #### 51016 #### [facility] [address] [place] [address], USAOxygen ppres (Bld)31.0 mm[Hg]NormalThe [facility] CenterComment on above:Performed By: #### 54439 #### [facility] [address] [place] [address], KGENBJ643.4 reNzPjtbqt03.0-51.0The [facility] CenterComment on above:Performed By: #### 94064 #### [facility] [address] [place] [place] [address], USApH (Bld)7.24 [pH]Low7.31-7.41The [facility] CenterComment on above:Performed By: #### [id number] #### [facility] [address] [facility] [place] [address], USASodium molar rggq957 mmol/IGzkarz453-836Vip [facility] CenterComment on above:Performed By: #### 15223 #### [facility] [address] [facility] [place] [address], USABASE EXCESS-5.0 mmol/LLow-2.0-3.0The [facility] CenterComment on above:Performed By: #### [id number] #### [facility] [address] [facility] [place] [address], USAHematocrit Volume Fraction (Bld)23 %Dkp37-02Svp [facility] CenterComment on above:Performed By: #### [id number] #### [facility] [address] [facility] [place] [address], [facility] HOSPITALHemoglobin mass conc (Bld)7.8 g/dLLow12.0-17.0The [facility] CenterComment on above:Performed By: #### 43759 #### [facility] [address] [facility] [place] [address], USAIONIZED CALCIUM1.14 mmol/LNormal1.12-1.32The [facility] CenterComment on above:Performed By: #### 61906 #### [facility] [address] [place] [address], USAOxygen ppres (Bld)326.0 mm[Hg]High80.0-105.0The [facility] CenterComment on above:Performed By: #### 56342 #### [facility] [address] [place] [address], TKTZOF284.6 lzMkAutnft21.0-45.0The [facility] CenterComment on above:Performed By: #### 81772 #### [facility] [address] [place] [address], USApH (Bld)7.33 [pH]Low7.35-7.45The [facility] CenterComment on above:Performed By: #### 07175 #### [facility] [address] [facility] [place] [address], USAPotassium molar conc4.7 mmol/LNormal3.5-4.9The [facility] CenterComment on above:Performed By: #### 55942 #### [facility] [address] [place] [address], USASodium molar hwbf644 mmol/LMeubpq296-220Cwz [facility] CenterComment on above:Performed By: #### 52062 #### [facility] [address] [facility] [place] [address], USABASE EXCESS-4.0 mmol/LLow-2.0-3.0The [facility] CenterComment on above:Performed By: #### 68488 #### [facility] [address] [place] [address], USAGlucose mass seub650 mg/zQIxdq18-922Lkv [facility] CenterComment on above:Performed By: #### 25117 #### [facility] [address] [place] [address], [facility] HOSPITALHematocrit Volume Fraction (Bld)30 %Tpp65-35Oxd [facility] CenterComment on above:Performed By: #### 57005 #### [facility] [address] [place] [address], [facility] HOSPITALHemoglobin mass conc (Bld)10.2 g/dLLow12.0-17.0The [facility] CenterComment on above:Performed By: #### 93077 #### [facility] [address] [facility] [place] [address], [facility] HOSPITALIONIZED CALCIUM1.19 mmol/LNormal1.12-1.32The [facility] CenterComment on above:Performed By: #### 03150 #### [facility] [address] [place] [address], USAOxygen ppres (Bld)250.0 mm[Hg]High80.0-105.0The [facility] CenterComment on above:Performed By: #### 94813 #### [facility] [address] [facility] [place] [address], CAVOAP812.1 paDpUamj04.0-45.0The [facility] Medical CenterComment on above:Performed By: #### [id number] #### [facility] [address] [place] [address], USApH (Bld)7.29 [pH]Low7.35-7.45The [facility] Medical CenterComment on above:Performed By: #### 88409 #### [facility] [address] [place] [address], [facility] HOSPITALPotassium molar conc4.5 mmol/LNormal3.5-4.9The [facility] Medical CenterComment on above:Performed By: #### 80837 #### [facility] [address] [place] [address], USASodium molar mdeq763 mmol/KDfsxnh356-191Iup [facility] CenterComment on above:Performed By: #### 64424 #### [facility] [address] [facility] [place] [address], USABASE EXCESS-4.0 mmol/LLow-2.0-3.0The [facility] Medical CenterComment on above:Performed By: #### 82706 #### [facility] [address] [facility] [place] [address], [facility] HOSPITALGlucose mass iofp223 mg/jAVzxe02-862Lcq [facility] CenterComment on above:Performed By: #### 48419 #### [facility] [address] [facility] [place] [address], [facility] HOSPITALHematocrit Volume Fraction (Bld)32 %Phx22-98Cbi [facility] CenterComment on above:Performed By: #### 95555 #### [facility] [address] [facility] [place] [address], [facility] HOSPITALHemoglobin mass conc (Bld)10.9 g/dLLow12.0-17.0The [facility] CenterComment on above:Performed By: #### 26728 #### [facility] [address] [facility] [place] [address], USAIONIZED CALCIUM1.20 mmol/LNormal1.12-1.32The [facility] CenterComment on above:Performed By: #### 74097 #### [facility] [address] [facility] [place] [address], USAOxygen ppres (Bld)108.0 mm[Hg]High80.0-105.0The [facility] CenterComment on above:Performed By: #### 10007 #### [facility] [address] [facility] [place] [address], FLYPBA334.2 ymNkMshfoo61.0-45.0The [facility] CenterComment on above:Performed By: #### 58675 #### [facility] [address] [place] [address], USApH (Bld)7.33 [pH]Low7.35-7.45The [facility] Medical CenterComment on above:Performed By: #### 53094 #### [facility] [address] [place] [address], USAPotassium molar conc4.3 mmol/LNormal3.5-4.9The [facility] CenterComment on above:Performed By: #### 37716 #### [facility] [address] [place] [address], USASodium molar uhuf332 mmol/RSoqvks963-392Inf [facility] CenterComment on above:Performed By: #### 53076 #### [facility] [address] [place] [address], USAPOC GLUCOSE LABon 57-71-2662Bhifrdk mass nalw448 mg/dLHigh 70-100The [facility] CenterComment on above:Performed By: #### 61962 #### [facility] [address] [place] [address], USAGlucose mass gfgn945 mg/bFUdxp64-707Mne [facility] CenterComment on above:Performed By: #### 37409 #### [facility] [address] [place] [address], USAGlucose mass denv972 mg/vVKisi22-267Yyl [facility] CenterComment on above:Performed By: #### 23665 #### [facility] [address] [place] [address], USAGlucose mass elpm216 mg/kIIapt39-425Huz [facility] CenterComment on above:Performed By: #### 40182, 38523, 62041 #### [facility] [address] [place] [address], USAPORTABLE CHEST 1 VIEWon 66-65-9386NLJTXNTI CHEST 1 VIEW [facility] Department of Radiology [address] [place] [address] Patient Name: PATO CORRAL : 1960 Sex: F Age: Race: White Pt. Location: [id number] Patient Status: I Ordered Date: 04/28/2018 6:15:00 PM Completed Date: 04/28/2018 07:52 PM Requesting Provider: KAREN RUVALCABA Attending Provider: FELIPE HUGO Report Copy To: Signs & Symptoms: Post OP History: Patient history not available Comments: Check Chest Tube Position Exam: PORTABLE CHEST 1 VIEW PORTABLE CHEST 1 VIEW 04/28/2018 7:52 PM [...] stomach, in satisfactory position. Right IJ approach [place]Jen catheter with tip in the main pulmonary [...] tube in satisfactory position. Right IJ approach [place]Jen catheter with tip in the main pulmonary [...] findings. Electronically signed by:Jerry Charles. Transcribed by: [id number], User Resident: CHANTE HAINES Electronically Signed by: JERRY CHARLES @ 04/29/2018 07:53 AM I personally read this/these film(s) with this [facility] HospitalComment on above:Order Comment: No: Do not add to previous drawPROTHROMBIN TIMEon [id number] Coag RelTime (PPP)1.37 {INR}High0.91-1.16 The [facility] Medical CenterComment on above:Result Comment: ACCCP RECOMMENDED INR FOR WARFARIN THERAPY ------- CONDITION INR PROPHYLAXIS OF VENOUS THROMBOSIS 2-3 (HIGH-RISK SURGERY) TREATMENT OF VENOUS THROMBOSIS 2-3 TREATMENT OF PULMONARY EMBOLISM 2-3 PREVENTION OF SYSTEMIC EMBOLISM: 2-3 ACUTE MYOCARDIAL INFARCTION TISSUE HEART VALVES VALVULAR HEART DISEASE ATRIAL FIBRILLATION RECURRENT SYSTEMIC EMBOLISM MECHANICAL HEART VALVE 2.5-3.5 FROM: ORAL ANTICOAGULANTS. MECHANISM OF ACTION, CLINICAL EFFECTIVENESS, AND OPTIMAL THERAPEUTIC RANGE. CHEST 1995;108:231S-246S.Performed By: #### [id number] #### [facility] [address] [place] [address], USAProthrombin time (PT) Coag time (PPP)16.9 sHigh12.3-14.8The [facility] CenterComment on above:Result Comment: ALL RESULTS MUST BE INTERPRETED WITH RESPECT TO BLOOD DRAWING ARTIFACT OR DILUTION ERROR OF ANTICOAGULANT AT THE TIME OF SAMPLING.Performed By: #### 09595 #### [facility] [address] [place] [address], USARBC'S 2 UNITSon 70-27-7405VBVMWIEBMA INTERP 1COhioHealth Riverside Methodist HospitalComment on above:Performed By: #### 83896 #### [facility] [address] [place] [address], USACROSSMATCH INTERP 2COhioHealth Riverside Methodist HospitalComment on above:Performed By: #### 90113 #### [facility] [address] [place] [address], USAProtein mass concPTSelect Medical Specialty Hospital - YoungstownComment on above:Result Comment: Result changed by IF on 04/29/2018 10:38. The previous value was XM. Result changed by IF on 04/30/2018 00:30. The previous value was IS.Performed By: #### 39046 #### [facility] [address] [place] [address], USAProtein mass gpur474 g/dLNoLima Memorial HospitalComment on above:Performed By: #### 17395 #### [facility] [address] [place] [address], USAProtein mass concRENoLima Memorial HospitalComment on above:Result Comment: Result changed by IF on 05/01/2018 07:28. The previous value was XM.Performed By: #### 78654 #### [facility] [address] [place] [address], USAUNIT ABO 1[facility] Comment on above:Performed By: #### 12163 #### [facility] [address] [place] [address], USAUNIT ABO 2[facility] Comment on above:Performed By: #### 34845 #### [facility] [address] [place] [address], USAUNIT ID [id number]-OLrnjfsZueJoint Township District Memorial HospitalComment on above:Performed By: #### 07247 #### [facility] [address] [place] [address], USAUNIT ID [id number]-YEritqfYvcSamaritan HospitalComment on above:Performed By: #### 24380 #### [facility] [address] [place] [address], USAUNIT RH 1PThe [facility] HospitalComment on above:Performed By: #### 30633 #### [facility] [address] [place] [address], USAUNIT RH 2PThe [facility] HospitalComment on above:Performed By: #### 45489 #### [facility] [address] [place] [address], USACROSSMATCH INTERP 1COhioHealth Riverside Methodist HospitalComment on above:Performed By: #### 73991 #### [facility] [address] [place] [address], USACROSSMATCH INTERP 2COhioHealth Riverside Methodist HospitalComment on above:Performed By: #### 69781 #### [facility] [address] [place] [address], USAProtein mass kuia716 g/dLNoLima Memorial HospitalComment on above:Performed By: #### 31813 #### [facility] [address] [place] [address], USAProtein mass concPTNoLima Memorial HospitalComment on above:Result Comment: Result changed by IF on 04/28/2018 15:02. The previous value was XM. Result changed by IF on 04/29/2018 00:30. The previous value was IS.Performed By: #### 24543 #### [facility] [address] [place] [address], USAUNIT ABO [address] [place] [address] Comment on above:Performed By: #### 37523 #### [facility] [address] [place] [address], USAUNIT ABO 2[facility] Comment on above:Performed By: #### 76469 #### [facility] [address] [place] [address], USAUNIT ID [id number]-TEdtvokPxcProvidence HospitalComment on above:Performed By: #### 30961 #### [facility] [address] [place] [address], USAUNIT ID [id number]-RWdvtlfWalBlanchard Valley Health SystemComment on above:Performed By: #### 16072 #### [facility] [address] [place] [address], USAUNIT RH 1PThe [facility] HospitalComment on above:Performed By: #### 08669 #### [facility] [address] [place] [address], USAUNIT RH 2PosiCommunity Memorial HospitalComment on above:Performed By: #### 60612 #### [facility] [address] [place] [address], USACROSSMATCH INTERP 1COhioHealth Riverside Methodist HospitalComment on above:Performed By: #### 27064 #### [facility] [address] [place] [address], USACROSSMATCH INTERP 2COhioHealth Riverside Methodist HospitalComment on above:Performed By: #### 72324 #### [facility] [address] [place] [address], USAProtein mass xpxj707 g/dLSelect Medical Specialty Hospital - YoungstownComment on above:Performed By: #### 65274 #### [facility] [address] [place] [address], USAProtein mass concPTNoLima Memorial HospitalComment on above:Result Comment: Result changed by IF on 04/28/2018 13:08. The previous value was XM. Result changed by IF on 04/29/2018 00:30. The previous value was IS.Performed By: #### 86226 #### [facility] [address] [place] [address], USAUNIT ABO 1[facility] Comment on above:Performed By: #### 17255 #### [facility] [address] [place] [address], USAUNIT ABO 2[facility] Comment on above:Performed By: #### 31389 #### [facility] [address] [place] [address], USAUNIT ID [id number] Valley Health SystemComment on above:Performed By: #### 45357 #### [facility] [address] [place] [address], USAUNIT ID [id number]-DZryvtyQzePike Community HospitalComment on above:Performed By: #### 95035 #### [facility] [address] [place] [address], USAUNIT RH 1PThe [facility] HospitalComment on above:Performed By: #### 37682 #### [facility] [address] [place] [address], USAUNIT RH 2PThe [facility] HospitalComment on above:Performed By: #### 85965 #### [facility] [address] [place] [address], USAUFH HEPARIN ASSAYon 48-48-0987CNGZAJLZBVRESE HEPARIN<0.10 Critically low0.30-0.70The [facility] CenterComment on above: Result Comment: Rivaroxaban and Apixaban will interfere with the anti Xa assay used to monitor UFH and LMWH. RESULTS CHECKED AND CALLED. ACCURATELY READ BACK BY BRADY JORDAN RN AT 07:41Performed By: #### 79848 #### [facility] [address] [place] [address], USAARTERIAL BLOOD GAS W/COOXon 44-63-4646JQCB EXCESS0 mmol/L Yqdzej-7-0Ugy [facility] CenterComment on above:Performed By: #### 49591, 30709, 06903 #### [facility] [address] [place] [address], USACOHB1 %Normal0-1The [facility] Comment on above:Performed By: #### 22370, 06681, 90629 #### [facility] [address] [place] [address], USADELIVERY SYSTEMSROOM ACMC Healthcare System GlenbeighComment on above:Performed By: #### 05884, 76529, 03457 #### [facility] [address] [place] [address], BCAXPV332 %Fxpsma53-560Vag [facility] Comment on above:Performed By: #### 40964, 99471, 64401 #### [facility] [address] [place] [address], USAHCO3 molar conc (Bld)25 mmol/QWchmvd53-89Yed [facility] CenterComment on above:Performed By: #### 99436, 74428, 27749 #### [facility] [address] [place] [address], USAMETHB0.2 %Normal0.0-1.5The [facility] CenterComment on above:Performed By: #### 02623, 88810, 05170 #### [facility] [address] [place] [address], USAOxygen ppres (Bld)76 mm[Hg]Idwwdf38-928Oen [facility] CenterComment on above:Performed By: #### 45965, 30398, 13649 #### [facility] [address] [place] [address], USAOxygen saturation in Blood93.6 %Low94.0-97.0The [facility] CenterComment on above:Performed By: #### 04529, 30872, 65578 #### [facility] [address] [place] [address], TZMGAD973 uoZaIygygx82-32Grh [facility] CenterComment on above:Performed By: #### 02870, 15172, 30840 #### [facility] [address] [place] [address], USApH (Bld)7.39 [pH]Normal7.35-7.45The [facility] CenterComment on above:Performed By: #### 47215, 07800, 99905 #### [facility] [address] [place] [address], ZWDZOK29.8 g/xPJqvasg65.0-15.0The [facility] CenterComment on above:Performed By: #### 50737, 08940, 77076 #### [facility] [address] [place] [address], USABASIC METABOLIC PANELon 82-87-7236Fgeajkr mass conc8.7 mg/dLNormal8.6-10.3The [facility] CenterComment on above:Order Comment: No: Do not add to previous drawPerformed By: #### 52539, 89472, 28418 #### [facility] [address] [place] [address], USAChloride molar whvt130 mmol/OMksbsa29-081Yrc [facility] CenterComment on above:Order Comment: No: Do not add to previous drawPerformed By: #### 21205, 45569, 15290 #### [facility] [address] [place] [address], USACO2 molar conc26 mmol/YUkaegd15-47Xxq [facility] CenterComment on above:Order Comment: No: Do not add to previous draw Performed By: #### 83093, 79100, 86045 #### [facility] [address] [place] [address], USACreatinine mass conc0.65 mg/dLNormal0.60-1.20The [facility] CenterComment on above:Order Comment: No: Do not add to previous drawPerformed By: #### 54136, 77187, 24687 #### [facility] [address] [place] [address], USAGFR/1.73 sq M predicted among blacks MDRD vol rate/area (S/P/Bld)mL/min/{1.73_m2}Normal>60The [facility] CenterComment on above:Order Comment: No: Do not add to previous drawPerformed By: #### 13921, 25556, 94827 #### [facility] [address] [place] [address], USAGFR/1.73 sq M predicted among non-blacks MDRD vol rate/area (S/P/Bld)mL/min/{1.73_m2}Normal>60The [facility] Comment on above:Order Comment: No: Do not add to previous drawPerformed By: #### 45919, 05627, 54629 #### [facility] [address] [place] [address], USAGlucose mass uvkx321 mg/lHGair32-986Ypi [facility] CenterComment on above:Order Comment: No: Do not add to previous drawPerformed By: #### 20129, 89669, 17111 #### [facility] [address] [place] [address], USAPotassium molar conc3.8 mmol/LNormal3.5-5.1The [facility] CenterComment on above:Order Comment: No: Do not add to previous drawPerformed By: #### 11010, 72005, 59523 #### [facility] [address] [place] [address], USASodium molar zpht808 mmol/KNfq771-469Fca [facility] CenterComment on above:Order Comment: No: Do not add to previous drawPerformed By: #### 78469, 06110, 79982 #### [facility] [address] [place] [address], USAUrea nitrogen mass conc12 mg/dLNormal7-25The [facility] CenterComment on above:Order Comment: No: Do not add to previous drawPerformed By: #### 55975, 69626, 42759 #### [facility] [address] [place] [address], USACBC COMPLETE BLOOD COUNTon 46-56-6944Csdplxpunac distribution width Ratio (RBC)14.0 %Ebdkfg24.5-15.0The [facility] CenterComment on above:Order Comment: No: Do not add to previous draw Performed By: #### 87061, 37820, 41716 #### [facility] [address] [place] [address], USAHematocrit Volume Fraction (Bld)35.3 %Low36.0-45.0The [facility] CenterComment on above:Order Comment: No: Do not add to previous drawPerformed By: #### 38708, 55025, 68936 #### [facility] [address] [place] [address], USAHemoglobin mass conc (Bld)11.4 g/dLLow12.0-15.0The [facility] CenterComment on above:Order Comment: No: Do not add to previous drawPerformed By: #### 84158, 33816, 22601 #### [facility] [address] [place] [address], [facility] Entitic mass (RBC)25.4 pgLow27.0-33.0The [facility] CenterComment on above:Order Comment: No: Do not add to previous drawPerformed By: #### 43655, 75639, 76465 #### [facility] [address] [place] [address], [facility] HOSPITALMCHC mass conc (RBC)32.3 g/qSKvcxwv36.0-35.0The [facility] CenterComment on above:Order Comment: No: Do not add to previous drawPerformed By: #### 03769, 16464, 74903 #### [facility] [address] [place] [address], [facility] Entitic volume (RBC)78.6 fLLow82.0-98.0The [facility] CenterComment on above:Order Comment: No: Do not add to previous drawPerformed By: #### 32334, 85628, 98246 #### [facility] [address] [place] [address], USANucleated RBC/100 WBC Ratio (Bld)0 %Normal0-0The [facility] CenterComment on above:Order Comment: No: Do not add to previous drawPerformed By: #### 86157, 66719, 97292 #### [facility] [address] [place] [address], USAPLAT UDO945 10*3/aOKtwvdt904-471Qms [facility] CenterComment on above:Order Comment: No: Do not add to previous draw Performed By: #### 08437, 89766, 86063 #### [facility] [address] [place] [address], USARBC #/vol (Bld)4.49 10*6/uLNormal3.80-5.00The [facility] CenterComment on above:Order Comment: No: Do not add to previous drawPerformed By: #### 89583, 83304, 25832 #### [facility] [address] [place] [address], USAWBC #/vol (Bld)7.38 10*3/uLNormal4.00-10.60The [facility] CenterComment on above:Order Comment: No: Do not add to previous drawPerformed By: #### 52975, 00528, 09328 #### [facility] [address] [place] [place] [address], USACardiovascular Lab Reporton [id number] Lab ReportUnCleveland Clinic [facility] MR #: [id number] Department of Physician: Martine Roberto Dewayne Mcintosh M.D. Division of Service Date: 04/26/2018 Cardiology Birthdate: 1960 Adult Cardiovascular Room #: 3AB [id number] [address] [address] Cardiovascular Laboratory Report INDICATION: The patient is a 57-year-old woman, who is admitted with symptoms of unstable angina. A stress test yesterday showed apical maría elena-infarct ischemia. She was referred for cardiac catheterization. PROCEDURE: Bilateral selective coronary angiography from the right radial access. METHODS: Procedure was explained to the patient with the risks and benefits. She signed informed consent. She was brought to cardiac cath tech in a fasting state. The right wrist area was prepped and draped in the usual fashion. Tong's test was favorable. Using micropuncture technique, the right radial artery was accessed. A 6-[place]ots[place] x 11 cm Hydrophilic sheath was advanced. Verapamil was given through the sheath and heparin was administered intravenously. Bilateral selective coronary angiography was then performed using 6-[place] JL3.5 and JR5 diagnostic catheters. Catheters were [...] Mcintosh M.D. Date Trans: 04/27/2018 07:59 A/mmo DN_JN:[id number] cc: Gianfracno Lau D.O. [address] [facility] [place] [address]WjijiwXttLima Memorial HospitalLIVER BATTERYon 48-59-3279Qggdian mass conc3.4 g/dLLow3.5-5.7The [facility] CenterComment on above:Order Comment: No: Do not add to previous drawPerformed By: #### 67875, 68135, 16275 #### [facility] [address] [place] [address], USAALKALINE SBQFRD494 IU/QImtrxl08-461Bsy [facility] CenterComment on above:Order Comment: No: Do not add to previous draw Performed By: #### 42465, 83986, 20570 #### [facility] [address] [place] [address], USAALT enzyme act/vol9 U/LNormal7-52The [facility] CenterComment on above:Order Comment: No: Do not add to previous draw Performed By: #### 35813, 73424, 57394 #### [facility] [address] [place] [address], USAAST enzyme act/vol9 U/GYrp14-95Ybb [facility] CenterComment on above:Order Comment: No: Do not add to previous draw Performed By: #### 88308, 56166, 50247 #### [facility] [address] [place] [address], USABilirubin mass conc0.2 mg/dLLow0.3-1.0The [facility] CenterComment on above:Order Comment: No: Do not add to previous drawPerformed By: #### 17723, 43772, 81774 #### [facility] [address] [place] [address], USABilirubin.direct mass conc0.0 mg/dLNormal0.0-0.2The [facility] CenterComment on above:Order Comment: No: Do not add to previous drawPerformed By: #### 34718, 88015, 69551 #### [facility] [address] [facility] [place] [address], USAProtein mass conc6.1 g/dLNormal6.0-8.3The [facility] CenterComment on above:Order Comment: No: Do not add to previous drawPerformed By: #### 38370, 81974, 40551 #### [facility] [address] [facility]. [place] [address], USAMRI BRAIN W WO CONTRASTon [id number] BRAIN W WO CONTRAST [facility] Department of Radiology [address] [place], [place] [phone] Patient Name: PATO CORRAL : 1960 Sex: F Age: Race: White Pt. Location: [id number] Patient Status: I Ordered Date: 04/27/2018 10:35:00 AM Completed Date: 04/27/2018 04:58 PM Requesting Provider: KAREN RUVALCABA Attending Provider: FELIPE HUGO Report Copy To: Signs & Symptoms: Headaches History: Patient history not available Comments: R/O Tumor, pre op cabg. CT rec MRI. cabg thur am Exam: MRI BRAIN W WO CONTRAST MRI BRAIN W WO CONTRAST 04/27/2018 4:58 [...] findings. Electronically signed by:Ruth Yen. Transcribed by: [email or web address], User Resident: DIONY MOHR Electronically Signed by: RUTH YEN @ 04/28/2018 03:26 PM I personally read this/these film(s) with this [facility] HospitalComment on above:Order Comment: No: Do not add to previous drawPOC GLUCOSE LABon 27-06-2176Tcltkti mass khkz302 mg/zZJrtm64-671Dyh [facility] CenterComment on above:Performed By: #### 00287, 23539, 75679 #### [facility] [address] [place] [address], USAGlucose mass wrzo685 mg/iJIkcy35-200Thl [facility] CenterComment on above:Performed By: #### 45174, 57831, 45366 #### [facility] [address] [place] [address], USAGlucose mass otsy180 mg/hZKudh49-521Zrw [facility] CenterComment on above:Performed By: #### 47027, 83169, 06857 #### [facility] [address] [place] [address], USATYPE AND SCREENon 89-59-9126XMR INTERPRETATIONONoLima Memorial HospitalComment on above:Performed By: #### 55354, 83783, 94192 #### [facility] [address] [place] [address], USARH INTERPRETATIONPositiveSelect Medical Specialty Hospital - YoungstownComment on above:Performed By: #### 41616, 05725, 16457 #### [facility] [address] [place] [address], USAUFH HEPARIN ASSAYon 27-86-9036VQTPBUDTZKNZZL HEPARIN0.15 IU/mLCritically low0.30-0.70The [facility] CenterComment on above:Result Comment: Rivaroxaban and Apixaban will interfere with the anti Xa assay used to monitor UFH and LMWH. RESULTS CHECKED AND CALLED. ACCURATELY READ BACK BY GRETTA EDWARDS RN AT 2238Performed By: #### 99788, 68958, 08962 #### [facility] [address] [facility] [place] [address], USAUNFRACTIONATED HEPARIN<0.10Critically low0.30-0.70The [facility] CenterComment on above:Result Comment: Rivaroxaban and Apixaban will interfere with the anti Xa assay used to monitor UFH and LMWH. result calld to RODRIGO MCCLURE RN 1455Performed By: #### 29672, 61216, 45027 #### [facility] [address] [place] [address], USAUNFRACTIONATED HEPARIN<0.10Critically low0.30-0.70The [facility] CenterComment on above:Result Comment: Rivaroxaban and Apixaban will interfere with the anti Xa assay used to monitor UFH and LMWH. RESULTS CHECKED AND CALLED. ACCURATELY READ BACK BY MADALYN DAO RN AT 620Performed By: #### 39894, 55031, 51315 #### [facility] [address] [facility] [address], USAUSV ARTERIAL DUPLEX CAROTID BILATERAL COMPLETEon 04-27-2018 USV ARTERIAL DUPLEX CAROTID BILATERAL COMPLETEUnOhioHealth Mansfield Hospital Department of Radiology [address] [place] [phone] Patient Name: PATO CORRAL : 1960 Sex: F Age: Race: White Pt. Location: [id number] Patient Status: I Ordered Date: 04/27/2018 8:00:00 AM Completed Date: 04/27/2018 10:29 AM Requesting Provider: KAREN RUVALCABA Attending Provider: FELIPE HUGO Report Copy To: Signs & Symptoms: CERVICAL BRUIT History: Patient history not available Comments: R/O Stenosis Exam: USV ARTERIAL DUPLEX CAROTID BILATERAL COMPLETE Final Bilateral Cerebrovascular Duplex Scan Patient: PATO CORRAL : 1960 Study Date: 04/27/2018 08:17:37 Referring Physician: KAREN RUVALCABA Customer Records Division Supervisor: DIANA GARCIA RDMS Ordering Physician: KAREN RUVALCABA Primary Care Physician: GIANFRANCO LAU Patient Location: Inpatient Ordering Diagnosis: CERVICAL BRUIT Indications: CPT Code: 97991 Cerebrovascular Duplex Scan Technique: The carotid arteries, [...] Study Date: 04/27/2018 08:17:37 [address] [place] [address] Noninvasive Vascular Laboratory Division of Vascular and Endovascular Surgery [facility] [phone] Clinical [phone] Transcribed by: InterfaceUser, Result Resident: Electronically Signed by: SHIRA BENITES @ 04/30/2018 03:37 [facility] HospitalComment on above:Order Comment: No: Do not add to previous drawUSV VENOUS LOWER EXTREMITY MAPPING BILATERALon 58-00-7807ETW VENOUS LOWER EXTREMITY MAPPING BILATERALUnOhioHealth Mansfield Hospital Department of Radiology [address] [place] [phone] Patient Name: PATO CORRAL : 1960 Sex: F Age: Race: White Pt. Location: [id number] Patient Status: I Ordered Date: 04/27/2018 8:00:00 AM Completed Date: 04/27/2018 10:28 AM Requesting Provider: KAREN RUVALCABA Attending Provider: FELIPE HUGO Report Copy To: Signs & Symptoms: PERIPHERAL VASCULAR DISEASE History: Patient history not available Comments: R/O OBSTRUCTION, preop CABG Exam: USV VENOUS LOWER EXTREMITY MAPPING BILATERAL Final Bilateral LE Saphenous Vein Mapping Patient: PATO CORRAL : 1960 Study Date: 04/27/2018 09:07:49 Referring Physician: KAREN RUVALCABA Customer Records Division Supervisor: DIANA GARCIA [facility] Ordering Physician: KAREN RUVALCABA Primary Care Physician: GIANFRANCO LAU Patient Location: Inpatient Ordering Diagnosis: PERIPHERAL VASCULAR DISEASE Indications: CPT Code: 83596J LE Saphenous Vein Mapping Technique: The greater [...] Page 2 of 2 [address] [place] [address] Noninvasive Vascular Laboratory Division of Vascular and Endovascular Surgery [facility] [phone] Clinical [phone] Transcribed by: InterfaceUser, Clarisse Resident: Electronically Signed by: SOHAIL TEJEDA @ 04/30/2018 02:46 PMNormalThe [facility] CenterComment on above:Order Comment: No: Do not add to previous draw*MRSA/MSSA DNA NASALon 04-26-2018*MRSA/MSSA DNA NASAL Clinical Report: (D) Specimen: NASAL SWAB Collected: 04/26/2018 17:30 Status: Final Last Updated: 04/27/2018 15:27 MSSA DNA (Final) Negative MRSA DNA (Final) NegativeNoLima Memorial HospitalComment on above:Performed By: #### 54269, 12786, 53649 #### [facility] [address] [place] [address], [facility] HOSPITALAPTYavapai Regional Medical Center 35-45-9115cWQM Coag time (Bld)168.6 sCritically high 25.0-35.0The [facility] CenterComment on above:Order Comment: No: Do not add to previous drawResult Comment: ALL RESULTS MUST BE INTERPRETED WITH [...] RESULT IS QUESTIONABLE IN THE PRESENCE OF HEPARIN.Performed By: #### 08585, 25075, 88457 #### [facility] [address] [place] [address], [facility] HOSPITALCB COMPLETE BLOOD COUNTon 48-56-9571Pylxglaxvid distribution width Ratio (RBC)14.2 %Vyuxrm28.5-15.0The [facility] CenterComment on above:Order Comment: No: Do not add to previous draw Performed By: #### 75077, 92924, 70552 #### [facility] [address] [place] [address], [facility] HOSPITALHematocrit Volume Fraction (Bld)36.5 %Ccdgiv99.0-45.0The [facility] CenterComment on above:Order Comment: No: Do not add to previous drawPerformed By: #### 36127, 95266, 21005 #### [facility] [address] [place] [address], [facility] HOSPITALHemoglobin mass conc (Bld)11.6 g/dLLow12.0-15.0The [facility] CenterComment on above:Order Comment: No: Do not add to previous drawPerformed By: #### 29822, 77376, 10788 #### [facility] [address] [place] [address], [facility] Entitic mass (RBC)25.1 pgLow27.0-33.0The [facility] CenterComment on above:Order Comment: No: Do not add to previous drawPerformed By: #### 74908, 28535, 39162 #### [facility] [address] [place] [address], [facility] – TULSAHC mass conc (RBC)31.8 g/dLLow32.0-35.0The [facility] CenterComment on above:Order Comment: No: Do not add to previous drawPerformed By: #### 93059, 05365, 32267 #### [facility] [address] [place] [address], USAMCV Entitic volume (RBC)79.0 fLLow82.0-98.0The [facility] CenterComment on above:Order Comment: No: Do not add to previous drawPerformed By: #### 24465, 54747, 34015 #### [facility] [address] [place] [address], USANucleated RBC/100 WBC Ratio (Bld)0 %Normal0-0The [facility] CenterComment on above:Order Comment: No: Do not add to previous drawPerformed By: #### 10806, 53407, 42840 #### [facility] [address] [place] [address], USAPLAT PMX015 10*3/nWMexfqn085-835Nvn [facility] CenterComment on above:Order Comment: No: Do not add to previous draw Performed By: #### 14047, 42343, 43387 #### [facility] [address] [place] [address], [facility] HOSPITALRBC #/vol (Bld)4.62 10*6/uLNormal3.80-5.00The [facility] CenterComment on above:Order Comment: No: Do not add to previous drawPerformed By: #### 65877, 84652, 14183 #### [facility] [address] [place] [address], USAWBC #/vol (Bld)7.32 10*3/uLNormal4.00-10.60The [facility] CenterComment on above:Order Comment: No: Do not add to previous drawPerformed By: #### 46332, 44070, 96832 #### [facility] [address] [place] [address], USAErythrocyte distribution width Ratio (RBC)14.4 %Normal 11.5-15.0The [facility] CenterComment on above:Order Comment: No: Do not add to previous drawPerformed By: #### 29828, 73518, 25342 #### [facility] [address] [place] [address], USAHematocrit Volume Fraction (Bld)35.6 %Low36.0-45.0The [facility] CenterComment on above:Order Comment: No: Do not add to previous drawPerformed By: #### 79473, 90778, 65942 #### [facility] [address] [place] [address], USAHemoglobin mass conc (Bld)11.7 g/dLLow12.0-15.0The [facility] CenterComment on above:Order Comment: No: Do not add to previous drawPerformed By: #### 11810, 45772, 73311 #### [facility] [address] [place] [address], [facility] Entitic mass (RBC)25.7 pgLow27.0-33.0The [facility] CenterComment on above:Order Comment: No: Do not add to previous drawPerformed By: #### 21819, 97694, 67016 #### [facility] [address] [place] [address], [facility] HOSPITALMCHC mass conc (RBC)32.9 g/fMXnzhtr11.0-35.0The [facility] CenterComment on above:Order Comment: No: Do not add to previous drawPerformed By: #### 85098, 97686, 37688 #### [facility] [address] [place] [address], [facility]V Entitic volume (RBC)78.1 fLLow82.0-98.0The [facility] CenterComment on above:Order Comment: No: Do not add to previous drawPerformed By: #### 00029, 54501, 70588 #### [facility] [address] [place] [address], USANucleated RBC/100 WBC Ratio (Bld)0 %Normal0-0The [facility] CenterComment on above:Order Comment: No: Do not add to previous drawPerformed By: #### 41499, 63666, 46528 #### [facility] [address] [place] [address], USAPLAT LDF278 10*3/mZLyiujo506-579Nat [facility] CenterComment on above:Order Comment: No: Do not add to previous draw Performed By: #### 59623, 42562, 79967 #### [facility] [address] [place] [address], R[facility] HOSPITALRBC #/vol (Bld)4.56 10*6/uLNormal3.80-5.00The [facility] CenterComment on above:Order Comment: No: Do not add to previous drawPerformed By: #### 67869, 03930, 64660 #### [facility] [address] [place] [address], USAWBC #/vol (Bld)7.95 10*3/uLNormal4.00-10.60The [facility] CenterComment on above:Order Comment: No: Do not add to previous drawPerformed By: #### 22699, 29735, 90156 #### [facility] [address] [facility] [address], [facility] HOSPITALCHEST AND [facility] [id number] AND [facility] Department of Radiology [address] [place] [phone] Patient Name: PATO CORRAL : 1960 Sex: F Age: Race: White Pt. Location: [id number] Patient Status: I Ordered Date: 04/25/2018 8:55:00 PM Completed Date: 04/25/2018 10:36 PM Requesting Provider: ART CEBALLOS Attending Provider: FELIPE HUGO Report Copy To: Signs & Symptoms: Unstable Angina History: Patient history not available Comments: R/O Cardiomegaly, when patient is stable Exam: CHEST AND LATERAL CHEST AND LATERAL 04/25/2018 10:36 PM EST [...] chest. Electronically signed by:Antwon Groves. Transcribed by: [email or web address], User Resident: Electronically Signed by: ANTWON GROVES @ 04/26/2018 08:21 AMNormalBlanchard Valley Health SystemComment on above:Order Comment: R/O Cardiomegaly, when patient is stableCT BRAIN WO CONTRASTon 70-93-4151JW BRAIN WO CONTRASTUnOhioHealth Mansfield Hospital Department of Radiology [address] [place] [address] Patient Name: PATO CORRAL : 1960 Sex: F Age: Race: White Pt. Location: [id number] Patient Status: I Ordered Date: 04/26/2018 5:25:00 PM Completed Date: 04/26/2018 07:04 PM Requesting Provider: KAREN RUVALCABA Attending Provider: FELIPE HUGO Report Copy To: Signs & Symptoms: Headache History: Patient history not available Comments: Other Exam: CT BRAIN WO CONTRAST CT BRAIN WO CONTRAST 04/26/2018 7:04 PM EST SIGNS AND SYMPTOMS: Headache TECHNOLOGIST COMMENTS: Headache x3 months. QUESTION FOR THE RADIOLOGIST: Other PROTOCOL: Axial CT images of the head were obtained without IV contrast. TECHNIQUE:Multi-detector CT axial slices of the brain were [...] findings. Electronically signed by:Ruth Yen. Transcribed by: [email or web address], User Resident: FERN JOSEPH Electronically Signed by: MIRANDARAYMON YEN @ 04/27/2018 03:17 PM I personally read this/these film(s) with this residentNoLima Memorial HospitalComment on above:Order Comment: No: Do not add to previous drawLIPID PROFILEon 07-42-4294Mvaicyvbenm in HDL mass conc39 mg/bNXbseph60-18Mgm [facility] CenterComment on above:Result Comment: Slight variation in normal range could be due to gender and/or age. HDL CHOLESTEROL REFERENCE RANGE: 20 years and older Cardiovascular Risk > or =60 mg/dL Desirable 40 TO 59 mg/dL Low Risk <40 mg/dL High RiskPerformed By: #### 49382, 14040, 49914 #### [facility] [address] [place] [address], USACholesterol in LDL mass conc54 mg/dLNormal0-130The [facility] CenterComment on above:Result Comment: LDL IS A CALCULATION LDL IS ONLY VALID IF THE TRIG IS LESS THAN 400.Performed By: #### 11763, 03540, 44697 #### [facility] [address] [place] [address], USACholesterol mass hmzc110 mg/wDTjkv653-102Ghf [facility] CenterComment on above:Result Comment: CHOLESTEROL REFERENCE RANGE: 20 YEARS AND OLDER CARDIOVASCULAR RISK Less than 200 mg/dl Low Risk 200 to 239 mg/dl Borderline Risk 240 mg/dl and greater High RiskPerformed By: #### 73538, 52119, 45102 #### [facility] [address] [place] [address], USACholesterol.total/Cholesterol in HDL mass ratio7.2 {ratio} High.0-4.5The [facility] CenterComment on above:Performed By: #### 94229, 08067, 57321 #### [facility] [address] [place] [address], USANON-HDL MFIJKTRQRCC804 mg/dLNoBlanchard Valley Health System Bluffton Hospitale [facility] CenterComment on above:Performed By: #### 23932, 61136, 72451 #### [facility] [address] [place] [address], USATriglyceride mass hjmg130 mg/wRDaby15-350Uwh [facility] CenterComment on above:Result Comment: TRIGLYCERIDE REFERENCE RANGE: 20 YEARS AND OLDER CARDIOVASCULAR RISK LESS THAN 150 mg/dl LOW RISK 150 TO 199 mg/dl BORDERLINE RISK 200 mg/dl AND GREATER HIGH RISKPerformed By: #### 55257, 59334, 77825 #### [facility] [address] [place] [address], USAVLDL WPWD937 mg/dLHigh0-40The [facility] CenterComment on above:Performed By: #### 13870, 73702, 68334 #### [facility] [address] [place] [address], USAPOC GLUCOSE LABon 44-57-2111Trhaqeg mass gmnw017 mg/dLHigh 70-100The [facility] CenterComment on above:Performed By: #### 86257, 99424, 78771 #### [facility] [address] [place] [address], USAGlucose mass spwt756 mg/rZQxoh14-725Sds [facility] CenterComment on above:Performed By: #### 32007, 81376, 24234 #### [facility] [address] [place] [address], USAGlucose mass blql930 mg/bVUcxo08-248Vjx [facility] CenterComment on above:Performed By: #### 46207, 17041, 32119 #### [facility] [address] [place] [place] [address], USAGlucose mass gjvc616 mg/oFQyik09-031Dpj [facility] CenterComment on above:Performed By: #### 82254, 12563, 52533 #### [facility] [address] [place] [address], USAPROTHROMBIN TIMEon 66-38-0243BAL Coag RelTime (PPP)1.01 {INR}Normal0.91-1.16The [facility] CenterComment on above: Order Comment: No: Do not add to previous drawResult Comment: ACCCP RECOMMENDED INR FOR WARFARIN THERAPY ------- CONDITION INR PROPHYLAXIS OF VENOUS THROMBOSIS 2-3 (HIGH-RISK SURGERY) TREATMENT OF VENOUS THROMBOSIS 2-3 TREATMENT OF PULMONARY EMBOLISM 2-3 PREVENTION OF SYSTEMIC EMBOLISM: 2-3 ACUTE MYOCARDIAL INFARCTION TISSUE HEART VALVES VALVULAR HEART DISEASE ATRIAL FIBRILLATION RECURRENT SYSTEMIC EMBOLISM MECHANICAL HEART VALVE 2.5-3.5 FROM: ORAL ANTICOAGULANTS. MECHANISM OF ACTION, CLINICAL EFFECTIVENESS, AND OPTIMAL THERAPEUTIC RANGE. CHEST 1995;108:231S-246S.Performed By: #### 15702, 93678, 20572 #### [facility] [address] [place] [address], USAProthrombin time (PT) Coag time (PPP)13.3 cDchkfe90.3-14.8 The [facility] CenterComment on above:Order Comment: No: Do not add to previous drawResult Comment: ALL RESULTS MUST BE INTERPRETED WITH RESPECT TO BLOOD DRAWING ARTIFACT OR DILUTION ERROR OF ANTICOAGULANT AT THE TIME OF SAMPLING.Performed By: #### 01263, 80798, 40955 #### [facility] [address] [place] [address], USATROPONIN-Ion 38-35-6778Zbmbhekp I.cardiac mass conc0.01 ng/mLNormal0.00-0.04The [facility] CenterComment on above: Order Comment: No: Do not add to previous drawResult Comment: REFERENCE RANGES: 0.00 - 0.04 ng/ml NORMAL 0.05 - 0.50 ng/ml INDETERMINATE > 0.50 ng/ml CONSISTENT WITH AN M.I.Performed By: #### 97198, 96969, 07547 #### [facility] [address] [place] [address], USATroponin I.cardiac mass conc0.01 ng/mLNormal0.00-0.04The [facility] CenterComment on above:Order Comment: No: Do not add to previous drawResult Comment: REFERENCE RANGES: 0.00 - 0.04 ng/ml NORMAL 0.05 - 0.50 ng/ml INDETERMINATE > 0.50 ng/ml CONSISTENT WITH AN M.I.Performed By: #### 33852, 00388, 59047 #### [facility] [address] [place] [address], USAUFH HEPARIN ASSAYon 24-15-4062PJNLCTMHEKDWMX HEPARIN<0.10 Critically low0.30-0.70The [facility] CenterComment on above: Result Comment: Rivaroxaban and Apixaban will interfere with the anti Xa assay used to monitor UFH and LMWH. RESULTS CHECKED AND CALLED. ACCURATELY READ BACK BY MADALYN HOLLIDAY RN AT 21:45Performed By: #### 37064, 18199, 82097 #### [facility] [address] [place] [address], USAUNFRACTIONATED HEPARIN>1.00Critically high0.30-0.70The [facility] CenterComment on above:Order Comment: No: Do not add to previous drawResult Comment: Rivaroxaban and Apixaban will interfere with the anti Xa assay used to monitor UFH and LMWH. UFH = 1.12 UFH added per protocol RESULTS CHECKED AND CALLED. ACCURATELY READ BACK BY ANDREAS BERNARD RN at 16:26Performed By: #### 24066, 25296, 61342 #### [facility] [address] [place] [address], USAUNFRACTIONATED HEPARIN0.14 IU/mLCritically low0.30-0.70The [facility] CenterComment on above:Result Comment: Rivaroxaban and Apixaban will interfere with the anti Xa assay used to monitor UFH and LMWH. Results called. Accurately read back by ANDREAS BERNARD RN AT 0800Performed By: #### 39633, 22111, 63432 #### [facility] [address] [place] [address], USAAPTTon 68-86-3417rFMS Coag time (Bld)26.8 pXhrzzg61.0-35.0 The [facility] CenterComment on above:Order Comment: No: Do not add to previous drawResult Comment: ALL RESULTS MUST BE INTERPRETED WITH RESPECT TO BLOOD DRAWING ARTIFACT OR DILUTION ERROR OF ANTICOAGULANT AT THE TIME OF SAMPLING. THE APTT SHOULD NOT BE USED TO MONITOR UNFRACTIONATED HEPARIN THERAPY, THIS LABORATORY NO LONGER HAS AN ESTABLISHED THERAPEUTIC RANGE BASED ON THE APTT. IT IS RECOMMENDED THAT THE UFH - HEPARIN ASSAY (ANTI-XA ACTIVITY) BE USED FOR THIS PURPOSE.Performed By: #### 16191 #### [facility] [address] [place] [address], USABASIC METABOLIC PANELon 47-92-3788Dxaviqf mass conc9.1 mg/dLNormal8.6-10.3The [facility] CenterComment on above:Order Comment: No: Do not add to previous drawPerformed By: #### 02333 #### [facility] [address] [place] [place] [address], USAChloride molar sxdx284 mmol/VDjhowy54-394Phs [facility] CenterComment on above:Order Comment: No: Do not add to previous drawPerformed By: #### 19540 #### [facility] [address] [place] [address], USACO2 molar conc24 mmol/YSucfwk59-10Exs [facility] CenterComment on above:Order Comment: No: Do not add to previous draw Performed By: #### 35594 #### [facility] [address] [place] [address], USACreatinine mass conc0.70 mg/dLNormal0.60-1.20The [facility] CenterComment on above:Order Comment: No: Do not add to previous drawPerformed By: #### 44660 #### [facility] [address] [place] [address], USAGFR/1.73 sq M predicted among blacks MDRD vol rate/area (S/P/Bld)mL/min/{1.73_m2}Normal>60The [facility] CenterComment on above:Order Comment: No: Do not add to previous drawPerformed By: #### 42145 #### [facility] [address] [place] [address], USAGFR/1.73 sq M predicted among non-blacks MDRD vol rate/area (S/P/Bld)mL/min/{1.73_m2}Normal>60The [facility] Comment on above:Order Comment: No: Do not add to previous drawPerformed By: #### [id number] #### [facility] [address] [facility] [place] [address], USAGlucose mass onns595 mg/qAOfgj29-767Ihe [facility] CenterComment on above:Order Comment: No: Do not add to previous drawPerformed By: #### [id number] #### [facility] [address] [place] [address], USAPotassium molar conc3.5 mmol/LNormal3.5-5.1The [facility] Medical CenterComment on above:Order Comment: No: Do not add to previous drawPerformed By: #### [id number] #### [facility] [address] [place] [address], USASodium molar vkja124 mmol/JAdf354-863Hdx [facility] CenterComment on above:Order Comment: No: Do not add to previous drawPerformed By: #### [id number] #### [facility] [address] [facility] [place] [address], USAUrea nitrogen mass conc10 mg/dLNormal7-25The [facility] CenterComment on above:Order Comment: No: Do not add to previous drawPerformed By: #### [id number] #### [facility] [address] [facility] [place] [address], USACBC W/DIFFon [id number] BASOPHILS0.0 10*3/uLNormal 0.0-0.2The [facility] CenterComment on above:Performed By: #### [id number] #### [facility] [address] [facility] [place] [address], [facility]OSPITALABS IMM GRANS0.0 10*3/uLNormal0.0-0.2The [facility] CenterComment on above:Performed By: #### [id number] #### [facility] [address] [facility] [address], [facility] HOSPITALABS NEUTROPHILS5.2 10*3/uLNormal1.6-7.6The [facility] CenterComment on above:Performed By: #### [id number] #### [facility] [address] [facility] [place] [address], USABasophils #/vol (Bld)0.4 %Normal0.0-1.0The [facility] CenterComment on above:Performed By: #### [id number] #### [facility] [address] [facility] [place] [address], [facility] HOSPITALEosinophils #/vol (Bld)0.4 10*3/uLNormal0.0-0.5The [facility] CenterComment on above:Performed By: #### [id number] #### [facility] [address] [facility] [place] [address], USAEosinophils/100 WBC (Bld)3.7 %Normal0.0-6.0The [facility] CenterComment on above:Performed By: #### [id number] #### [facility] [address] [facility] [place] [address], [facility] HOSPITALErythrocyte distribution width Ratio (RBC)14.4 %Normal 11.5-15.0The [facility] CenterComment on above:Performed By: #### [id number] #### [facility] [address] [facility] [address], [facility] HOSPITALHematocrit Volume Fraction (Bld)35.9 %Low36.0-45.0The [facility] CenterComment on above:Performed By: #### [id number] #### [facility] [address] [facility] [address], [facility] HOSPITALHemoglobin mass conc (Bld)11.7 g/dLLow12.0-15.0The [facility] CenterComment on above:Performed By: #### [id number] #### [facility] [address] [facility] [place] [address], R[facility] HOSPITALIMMATURE GRANS0.2 %Normal0.0-1.0The [facility] CenterComment on above:Performed By: #### [id number] #### [facility] [address] [facility] [place] [address], [facility] HOSPITALLymphocytes #/vol (Bld)3.4 10*3/uLNormal1.2-4.0The [facility] CenterComment on above:Performed By: #### [id number] #### [facility] [address] [facility] [place] [address], USALymphocytes/100 WBC (Bld)35.1 %Piztfl43.0-45.0The [facility] CenterComment on above:Performed By: #### [id number] #### [facility] [address] [place] [address], [facility] HOSPITALMCH Entitic mass (RBC)25.2 pgLow27.0-33.0The [facility] CenterComment on above:Performed By: #### [id number] #### [facility] [address] [place] [address], [facility]HC mass conc (RBC)32.6 g/tONikwnm36.0-35.0The [facility] CenterComment on above:Performed By: #### [id number] #### [facility] [address] [place] [address], [facility]V Entitic volume (RBC)77.4 fLLow82.0-98.0The [facility] CenterComment on above:Performed By: #### [id number] #### [facility] [address] [facility] [address], [facility] HOSPITALMonocytes #/vol (Bld)0.8 10*3/uLNormal0.1-1.0The [facility] CenterComment on above:Performed By: #### [id number] #### [facility] [address] [facility] [address], [facility] HOSPITALMONOS7.7 %Normal5.0-12.0The [facility] CenterComment on above:Performed By: #### [id number] #### [facility] [address] [facility] [address], [facility] HOSPITALNeutrophils/100 WBC (Bld)52.9 %Tejagl86.0-72.0The [facility] CenterComment on above:Performed By: #### [id number] #### [facility] [address] [facility] [place] [address], [facility] HOSPITALNucleated RBC/100 WBC Ratio (Bld)0 %Normal0-0The [facility] CenterComment on above:Performed By: #### [id number] #### [facility] [address] [facility] [address], R[facility] GENERAL HOSPITALPLAT XDX576 10*3/fWWfgbqr504-124Tzw [facility] CenterComment on above:Performed By: #### [id number] #### [facility] [address] [facility] [address], R[facility]AL HOSPITALRBC #/vol (Bld)4.64 10*6/uLNormal3.80-5.00The [facility] CenterComment on above:Performed By: #### [id number] #### [facility] [address] [place] [address], USAWBC #/vol (Bld)9.81 10*3/uLNormal4.00-10.60The [facility] CenterComment on above:Performed By: #### [id number] #### [facility] [address] [place] [address], USAMAGNESIUM BLOODon 07-50-2425Daeuacljl mass conc1.7 mg/dLLow 1.9-2.7The [facility] CenterComment on above:Order Comment: No: Do not add to previous drawPerformed By: #### [id number] #### [facility] [address] [facility] [place] [address], USAPOC GLUCOSE LABon 54-47-9321Nacklhz mass mxcl169 mg/dLHigh 70-100The [facility] CenterComment on above:Performed By: #### [id number], [id number], [id number] #### [facility] [address] [place] [address], USAPROTHROMBIN TIMEon 41-66-0688INW Coag RelTime (PPP)0.95 {INR}Normal0.91-1.16The [facility] CenterComment on above: Order Comment: No: Do not add to previous drawResult Comment: ACCCP RECOMMENDED INR FOR WARFARIN THERAPY ------- CONDITION INR PROPHYLAXIS OF VENOUS THROMBOSIS 2-3 (HIGH-RISK SURGERY) TREATMENT OF VENOUS THROMBOSIS 2-3 TREATMENT OF PULMONARY EMBOLISM 2-3 PREVENTION OF SYSTEMIC EMBOLISM: 2-3 ACUTE MYOCARDIAL INFARCTION TISSUE HEART VALVES VALVULAR HEART DISEASE ATRIAL FIBRILLATION RECURRENT SYSTEMIC EMBOLISM MECHANICAL HEART VALVE 2.5-3.5 FROM: ORAL ANTICOAGULANTS. MECHANISM OF ACTION, CLINICAL EFFECTIVENESS, AND OPTIMAL THERAPEUTIC RANGE. CHEST 1995;108:231S-246S.Performed By: #### [id number] #### [facility] [address] [facility] [place] [address], USAProthrombin time (PT) Coag time (PPP)12.7 uTzjtke33.3-14.8 The [facility] CenterComment on above:Order Comment: No: Do not add to previous drawResult Comment: ALL RESULTS MUST BE INTERPRETED WITH RESPECT TO BLOOD DRAWING ARTIFACT OR DILUTION ERROR OF ANTICOAGULANT AT THE TIME OF SAMPLING.Performed By: #### [id number] #### [facility] [address] [place] [place] [address], USATROPONIN-Ion 15-82-1833Gabskbcy I.cardiac mass conc0.01 ng/mLNormal0.00-0.04The [facility] CenterComment on above: Order Comment: No: Do not add to previous drawResult Comment: REFERENCE RANGES: 0.00 - 0.04 ng/ml NORMAL 0.05 - 0.50 ng/ml INDETERMINATE > 0.50 ng/ml CONSISTENT WITH AN M.I.Performed By: #### [id number] #### [facility] [address] [facility] [place] [address], USATSH3 WITH REFLEXon 77-80-6371N8 free mass conc0.63 ng/dLLow 0.71-1.85The [facility] CenterComment on above:Performed By: #### [id number] #### [facility] [address] [facility] [place] [address], USATSH 3RD GENERATION0.85 uIU/mLNormal0.34-5.60The [facility] CenterComment on above:Performed By: #### [id number] #### [facility] [address] [place] [address], [facility] HOSPITALPO GLUCOSE LABon 87-17-4156Hlgmirh mass ycec030 mg/dLHigh 70-100The [facility] CenterComment on above:Performed By: #### [id number] #### [facility] [address] [facility] [place] [address], [facility] HOSPITALGlucose mass vway016 mg/eNFxpp33-096Ims [facility] CenterComment on above:Performed By: #### [id number] #### [facility] [address] [facility] [address], [facility] HOSPITALCB W/DIFFon 18-27-3509GSP BASOPHILS0.0 10*3/uLNormal 0.0-0.2The [facility] CenterComment on above:Order Comment: No: Do not add to previous drawPerformed By: #### [id number] #### [facility] [address] [facility] [address], [facility] HOSPITALABS IMM GRANS0.0 10*3/uLNormal0.0-0.2The [facility] CenterComment on above:Order Comment: No: Do not add to previous drawPerformed By: #### [id number] #### [facility] [address] [facility] [address], [facility] HOSPITALABS NEUTROPHILS2.6 10*3/uLNormal1.6-7.6The [facility] CenterComment on above:Order Comment: No: Do not add to previous drawPerformed By: #### [id number] #### [facility] [address] [place] [address], USABasophils #/vol (Bld)0.4 %Normal0.0-1.0The [facility] CenterComment on above:Order Comment: No: Do not add to previous drawPerformed By: #### [id number] #### [facility] [address] [place] [address], USAEosinophils #/vol (Bld)0.3 10*3/uLNormal0.0-0.5The [facility] CenterComment on above:Order Comment: No: Do not add to previous drawPerformed By: #### [id number] #### [facility] [address] [place] [address], USAEosinophils/100 WBC (Bld)5.2 %Normal0.0-6.0The [facility] CenterComment on above:Order Comment: No: Do not add to previous drawPerformed By: #### [id number] #### [facility] [address] [facility] [place] [address], USAErythrocyte distribution width Ratio (RBC)13.8 %Normal 11.5-15.0The [facility] CenterComment on above:Order Comment: No: Do not add to previous drawPerformed By: #### [id number] #### [facility] [address] [facility] [place] [address], [facility] HOSPITALHematocrit Volume Fraction (Bld)36.1 %Gijyah65.0-45.0The [facility] CenterComment on above:Order Comment: No: Do not add to previous drawPerformed By: #### [id number] #### [facility] [address] [facility] [place] [address], USAHemoglobin mass conc (Bld)11.5 g/dLLow12.0-15.0The [facility] CenterComment on above:Order Comment: No: Do not add to previous drawPerformed By: #### [id number] #### [facility] [address] [facility] [place] [address], USAIMMATURE GRANS0.4 %Normal0.0-1.0The [facility] CenterComment on above:Order Comment: No: Do not add to previous draw Performed By: #### [id number] #### [facility] [address] [place] [address], [facility] HOSPITALLymphocytes #/vol (Bld)1.6 10*3/uLNormal1.2-4.0The [facility] CenterComment on above:Order Comment: No: Do not add to previous drawPerformed By: #### [id number] #### [facility] [address] [place] [address], [facility] HOSPITALLymphocytes/100 WBC (Bld)31.6 %Pxtggx54.0-45.0The [facility] CenterComment on above:Order Comment: No: Do not add to previous drawPerformed By: #### [id number] #### [facility] [address] [place] [address], [facility] Entitic mass (RBC)25.7 pgLow27.0-33.0The [facility] CenterComment on above:Order Comment: No: Do not add to previous drawPerformed By: #### [id number] #### [facility] [address] [place] [id number], [facility]ULSAHC mass conc (RBC)31.9 g/dLLow32.0-35.0The [facility] CenterComment on above:Order Comment: No: Do not add to previous drawPerformed By: #### [id number] #### [facility] [address] [facility] [address], [facility]V Entitic volume (RBC)80.6 fLLow82.0-98.0The [facility] CenterComment on above:Order Comment: No: Do not add to previous drawPerformed By: #### [id number] #### [facility] [address] [place] [address], USAMonocytes #/vol (Bld)0.5 10*3/uLNormal0.1-1.0The [facility] CenterComment on above:Order Comment: No: Do not add to previous drawPerformed By: #### [id number] #### [facility] [address] [place] [address], USAMONOS9.3 %Normal5.0-12.0The [facility] CenterComment on above:Order Comment: No: Do not add to previous drawPerformed By: #### [id number] #### [facility] [address] [place] [address], USANeutrophils/100 WBC (Bld)53.1 %Pravna75.0-72.0The [facility] CenterComment on above:Order Comment: No: Do not add to previous drawPerformed By: #### [id number] #### [facility] [address] [place] [address], USANucleated RBC/100 WBC Ratio (Bld)0 %Normal0-0The [facility] CenterComment on above:Order Comment: No: Do not add to previous drawPerformed By: #### [id number] #### [facility] [address] [place] [address], USAPLAT RGT034 10*3/iXNoibgs723-280Stv [facility] CenterComment on above:Order Comment: No: Do not add to previous draw Performed By: #### [id number] #### [facility] [address] [place] [address], USARBC #/vol (Bld)4.48 10*6/uLNormal3.80-5.00The [facility] CenterComment on above:Order Comment: No: Do not add to previous drawPerformed By: #### [id number] #### [facility] [address] [place] [address], USAWBC #/vol (Bld)4.97 10*3/uLNormal4.00-10.60The [facility] CenterComment on above:Order Comment: No: Do not add to previous drawPerformed By: #### [id number] #### [facility] [address] [place] [address], USAHEMOGLOBIN A1Con 48-43-6103Xsuldkobaz A1c/Hemoglobin.total mass fraction (Bld)6.8 %High4.0-6.0The [facility] Comment on above:Order Comment: No: Do not add to previous drawPerformed By: #### [id number] #### [facility] [address] [place] [address], USAHemoglobin A1c/Hemoglobin.total mass fraction (Bld)148 mg/lSHdkn81-647Tpg [facility] CenterComment on above:Order Comment: No: Do not add to previous drawPerformed By: #### [id number] #### [facility] [address] [place] [address], USAMAGNESIUM BLOODon 81-57-9459Bymjurkct mass conc1.8 mg/dLLow 1.9-2.7The [facility] CenterComment on above:Performed By: #### [id number] #### [facility] [address] [place] [address], USAPOC GLUCOSE LABon 75-77-2323Xyuvhpl mass tjcy562 mg/dLHigh 70-100The [facility] CenterComment on above:Performed By: #### [id number] #### [facility] [address] [place] [address], USAGlucose mass sdfm396 mg/gHJjvx95-955Dph [facility] CenterComment on above:Performed By: #### [id number] #### [facility] [address] [place] [address], USAGlucose mass ovbu831 mg/nWOwvt42-164Ppc [facility] CenterComment on above:Performed By: #### [id number] #### [facility] [address] [place] [address], USAGlucose mass wjkn963 mg/xFFfhf65-665Dll [facility] CenterComment on above:Performed By: #### [id number] #### [facility] [address] [place] [address], [facility] HOSPITALTROPONIN-Ion 02-78-1850Jmhoupzs I.cardiac mass conc0.02 ng/mLNormal0.00-0.04The [facility] CenterComment on above: Order Comment: No: Do not add to previous drawResult Comment: REFERENCE RANGES: 0.00 - 0.04 ng/ml NORMAL 0.05 - 0.50 ng/ml INDETERMINATE > 0.50 ng/ml CONSISTENT WITH AN M.I.Performed By: #### [id number] #### [facility] [address]*BLOOD CULTUREon 78-41-7350Fkpngajo identified Cx Nom (Bld) Clinical Report: (D) Specimen: BLOOD CULTURE Collected: 03/20/2018 11:20 Status: Final Last Updated: 03/26/2018 06:07 (1) x2 CULT RES (Final) No Growth Day 5NoLima Memorial HospitalComment on above: Order Comment: No: Do not add to previous drawPerformed By: #### [id number] #### [address]*RAPID FLU AANDB BY MOLECULARon 03-20-2018*RAPID FLU AANDB BY MOLECULARClinical Report: (D) Specimen: NASAL SWAB Collected: 03/20/2018 16:00 Status: Final Last Updated: 03/20/2018 16:52 FLUA RNA (Final) Negative FLUB RNA (Final) NegativeNoLima Memorial HospitalComment on above:Performed By: #### [id number] #### [facility] [address] [place] [address], [facility] HOSPITALBNP (B-TYPE NATRIURETIC PEPTIDE)on 66-89-5045Tzgeaxqfulm peptide B mass conc (Bld)40 pg/mLNormal0-100The [facility] CenterComment on above:Order Comment: No: Do not add to previous drawResult Comment: Given the appropriate clinical setting a BNP result of >100 pg/mL indicates congestive heart failure.Performed By: #### [id number] #### [facility] [address] [facility] [place] [address], [facility] HOSPITALCBC W/DIFFon 60-69-6757QUC BASOPHILS0.0 10*3/uLNormal 0.0-0.2The [facility] CenterComment on above:Order Comment: No: Do not add to previous drawPerformed By: #### [id number] #### [facility] [address] [facility] [address], USAABS IMM GRANS0.1 10*3/uLNormal0.0-0.2The [facility] CenterComment on above:Order Comment: No: Do not add to previous drawPerformed By: #### [id number] #### [facility] [address] [facility] [place] [address], USAABS NEUTROPHILS5.7 10*3/uLNormal1.6-7.6The [facility] CenterComment on above:Order Comment: No: Do not add to previous drawPerformed By: #### [id number] #### [facility] [address] [place] [address], USABasophils #/vol (Bld)0.3 %Normal0.0-1.0The [facility] CenterComment on above:Order Comment: No: Do not add to previous drawPerformed By: #### [id number] #### [facility] [address] [facility] [place] [address], USAEosinophils #/vol (Bld)0.1 10*3/uLNormal0.0-0.5The [facility] CenterComment on above:Order Comment: No: Do not add to previous drawPerformed By: #### [id number] #### [facility] [address] [place] [address], USAEosinophils/100 WBC (Bld)1.4 %Normal0.0-6.0The [facility] CenterComment on above:Order Comment: No: Do not add to previous drawPerformed By: #### [id number] #### [facility] [address] [place] [address], USAErythrocyte distribution width Ratio (RBC)14.0 %Normal 11.5-15.0The [facility] CenterComment on above:Order Comment: No: Do not add to previous drawPerformed By: #### [id number] #### [facility] [address] [place] [address], USAHematocrit Volume Fraction (Bld)36.4 %Zxnzzp44.0-45.0The [facility] CenterComment on above:Order Comment: No: Do not add to previous drawPerformed By: #### [id number] #### [facility] [address] [address], USAHemoglobin mass conc (Bld)11.6 g/dLLow12.0-15.0The [facility] CenterComment on above:Order Comment: No: Do not add to previous drawPerformed By: #### [id number] #### [facility] [address] [facility] [place] [address], USAIMMATURE GRANS0.7 %Normal0.0-1.0The [facility] CenterComment on above:Order Comment: No: Do not add to previous draw Performed By: #### [id number] #### [facility] [address] [facility] [place] [address], USALymphocytes #/vol (Bld)1.1 10*3/uLLow1.2-4.0The [facility] CenterComment on above:Order Comment: No: Do not add to previous drawPerformed By: #### [id number] #### [facility] [address] [place] [address], USALymphocytes/100 WBC (Bld)14.5 %Low20.0-45.0The [facility] CenterComment on above:Order Comment: No: Do not add to previous drawPerformed By: #### [id number] #### [facility] [address] [place] [address], [facility] Entitic mass (RBC)25.7 pgLow27.0-33.0The [facility] CenterComment on above:Order Comment: No: Do not add to previous drawPerformed By: #### [id number] #### [facility] [address] [place] [address], [facility]HC mass conc (RBC)31.9 g/dLLow32.0-35.0The [facility] CenterComment on above:Order Comment: No: Do not add to previous drawPerformed By: #### [id number] #### [facility] [address] [place] [address], [facility] Entitic volume (RBC)80.5 fLLow82.0-98.0The [facility] CenterComment on above:Order Comment: No: Do not add to previous drawPerformed By: #### [id number] #### [facility] [address] [place] [address], USAMonocytes #/vol (Bld)0.4 10*3/uLNormal0.1-1.0The [facility] CenterComment on above:Order Comment: No: Do not add to previous drawPerformed By: #### [id number] #### [facility] [address] [place] [address], USAMONOS5.0 %Normal5.0-12.0The [facility] CenterComment on above:Order Comment: No: Do not add to previous drawPerformed By: #### [id number] #### [facility] [address] [place] [address], USANeutrophils/100 WBC (Bld)78.1 %High40.0-72.0The [facility] CenterComment on above:Order Comment: No: Do not add to previous drawPerformed By: #### [id number] #### [facility] [address] [place] [address], USANucleated RBC/100 WBC Ratio (Bld)0 %Normal0-0The [facility] CenterComment on above:Order Comment: No: Do not add to previous drawPerformed By: #### [id number] #### [facility] [address] [place] [address], USAPLAT JSO657 10*3/tHJarqay828-041Szk [facility] CenterComment on above:Order Comment: No: Do not add to previous draw Performed By: #### [id number] #### [facility] [address] [place] [address], [facility] HOSPITALRBC #/vol (Bld)4.52 10*6/uLNormal3.80-5.00The [facility] CenterComment on above:Order Comment: No: Do not add to previous drawPerformed By: #### [id number] #### [facility] [address] [place] [address], USAWBC #/vol (Bld)7.25 10*3/uLNormal4.00-10.60The [facility] CenterComment on above:Order Comment: No: Do not add to previous drawPerformed By: #### [id number] #### [facility] [address] [place] [id number], [facility] HOSPITALCOMP METABOLIC PANELon 54-07-5380Zmdtulm mass conc3.4 g/dL Low3.5-5.7The [facility] CenterComment on above:Order Comment: No: Do not add to previous drawPerformed By: #### 49211, 17246, 99814 #### [facility] [address] [place] [address], USAALKALINE IASOQE22 IU/RBsvutu10-180Puk [facility] CenterComment on above:Order Comment: No: Do not add to previous draw Performed By: #### 36111, 22964, 33079 #### [facility] [address] [place] [address], USAALT enzyme act/vol13 U/LNormal7-52The [facility] CenterComment on above:Order Comment: No: Do not add to previous draw Performed By: #### 43025, 94136, 55815 #### [facility] [address] [place] [address], USAAST enzyme act/vol10 U/UNko23-28Oyk [facility] CenterComment on above:Order Comment: No: Do not add to previous draw Performed By: #### 92197, 22202, 77865 #### [facility] [address] [place] [address], USABilirubin mass conc0.2 mg/dLLow0.3-1.0The [facility] CenterComment on above:Order Comment: No: Do not add to previous drawPerformed By: #### 66626, 55804, 45700 #### [facility] [address] [place] [address], USACalcium mass conc8.4 mg/dLLow8.6-10.3The [facility] CenterComment on above:Order Comment: No: Do not add to previous drawPerformed By: #### 97211, 14380, 82301 #### [facility] [address] [place] [address], USAChloride molar tbxp497 mmol/OVnllqy72-947Gda [facility] CenterComment on above:Order Comment: No: Do not add to previous drawPerformed By: #### 57239, 47535, 84820 #### [facility] [address] [place] [address], USACO2 molar conc23 mmol/PRmivuy48-28Waw [facility] CenterComment on above:Order Comment: No: Do not add to previous draw Performed By: #### 27891, 03606, 17889 #### [facility] [address] [place] [address], USACreatinine mass conc0.83 mg/dLNormal0.60-1.20The [facility] CenterComment on above:Order Comment: No: Do not add to previous drawPerformed By: #### 25322, 62207, 66087 #### [facility] [address] [place] [address], USAGFR/1.73 sq M predicted among blacks MDRD vol rate/area (S/P/Bld)mL/min/{1.73_m2}Normal>60The [facility] CenterComment on above:Order Comment: No: Do not add to previous drawPerformed By: #### 46836, 31309, 14946 #### [facility] [address] [place] [address], USAGFR/1.73 sq M predicted among non-blacks MDRD vol rate/area (S/P/Bld)mL/min/{1.73_m2}Normal>60The [facility] Comment on above:Order Comment: No: Do not add to previous drawPerformed By: #### 00743, 94839, 24745 #### [facility] [address] [place] [address], USAGlucose mass coph623 mg/sNBlhp49-125Idm [facility] CenterComment on above:Order Comment: No: Do not add to previous drawPerformed By: #### 77826, 85714, 50580 #### [facility] [address] [place] [address], USAPotassium molar conc3.7 mmol/LNormal3.5-5.1The [facility] CenterComment on above:Order Comment: No: Do not add to previous drawPerformed By: #### 59220, 47658, 85930 #### [facility] [address] [place] [address], USAProtein mass conc6.2 g/dLNormal6.0-8.3The [facility] CenterComment on above:Order Comment: No: Do not add to previous drawPerformed By: #### 68080, 39894, 76739 #### [facility] [address] [place] [address], USASodium molar dzmo748 mmol/ORka198-737Qza [facility] CenterComment on above:Order Comment: No: Do not add to previous drawPerformed By: #### 85619, 87290, 87318 #### [facility] [address] [place] [address], USAUrea nitrogen mass conc17 mg/dLNormal7-25The [facility] CenterComment on above:Order Comment: No: Do not add to previous drawPerformed By: #### 17821, 15941, 44493 #### [facility] [address] [place] [address], USALACTATE BLOODon 53-96-5749Yybtfso molar conc1.3 mmol/L Normal0.5-2.2The [facility] CenterComment on above:Order Comment: No: Do not add to previous drawPerformed By: #### 70852 #### [facility] [address] [place] [address], USALIPASE BLOODon 48-78-3319Jmrjcv enzyme act/vol18 Units/L Wzccoe36-75Mwf [facility] CenterComment on above:Performed By: #### 71361, 90058, 40215 #### [facility] [address] [place] [address], USAPOC GLUCOSE LABon 99-84-9340Pqrrcgo mass zndk857 mg/dLHigh 70-100The [facility] CenterComment on above:Performed By: #### 86973 #### [facility] [address] [place] [address], USAGlucose mass kmcx701 mg/nCPlpn16-213Ick [facility] CenterComment on above:Performed By: #### 78894 #### [facility] [address] [place] [address], USAGlucose mass pivr464 mg/tFQuxg90-122Lnp [facility] CenterComment on above:Performed By: #### 50419 #### [facility] [address] [place] [address], USAPROCALCITONINon 19-07-3196Bfezcsp mass conc0.44 ng/mLHigh 0.00-0.10The [facility] CenterComment on above:Order Comment: No: Do not add to previous drawResult Comment: Suspected Lower Respiratory Tract Infection: 0.1-0.25ng/mL- Low likelihood for bacterial infection;Antibiotics discouraged.* >0.25ng/mL- Increased likelihood bacterial infection;Antibiotics encouraged. Suspected Sepsis: Strongly consider initiating antibiotics in all unstable patients. 0.1-0.5ng/mL- Low likelihood for sepsis; Antibiotics discouraged.* >0.5ng/mL- Increased likelihood sepsis; Antibiotics encouraged. >2.0ng/mL- High risk of sepsis/septic shock; Antibiotics strongly encouraged. *Recommend retesting PCT within 6-12hours if clinically indicated and initial PCT<0.5ng/mLPerformed By: #### 21442 #### [facility] [address] [place] [address], USATROPONIN-Ion 72-72-1540Ffmqmzgf I.cardiac mass conc0.02 ng/mLNormal0.00-0.04The [facility] CenterComment on above: Order Comment: No: Do not add to previous drawResult Comment: REFERENCE RANGES: 0.00 - 0.04 ng/ml NORMAL 0.05 - 0.50 ng/ml INDETERMINATE > 0.50 ng/ml CONSISTENT WITH AN M.I.Performed By: #### 96878 #### [facility] [address] [place] [address], [facility] HOSPITALTroponin I.cardiac mass conc0.03 ng/mLNormal0.00-0.04The [facility] CenterComment on above:Order Comment: No: Do not add to previous drawResult Comment: REFERENCE RANGES: 0.00 - 0.04 ng/ml NORMAL 0.05 - 0.50 ng/ml INDETERMINATE > 0.50 ng/ml CONSISTENT WITH AN M.I.Performed By: #### 24487, 83225, 62425 #### [facility] [address] [place] [place] [address], [facility] Vital Signs Date TimeVital SignValuePerforming ZfcrotiglJfohsmxv16-75-6341 10:57-0400 Diastolic blood mm[Hg]Janet Keen MECHANICAL INTEGRITY SPECIALIST-BC Work Phone: [phone]09-25-2025 10:57-0400 Systolic blood vulvvvxh943 mm[Hg]Janet Keen MECHANICAL INTEGRITY SPECIALIST-BC Work Phone: [phone] [place], [place] 9595409-25-2025 10:46-0400 Body dpjzle911.02 cmSnovadaniel Leonila MECHANICAL INTEGRITY SPECIALIST-BC Work Phone: [phone] [place], [place] 9595409-25-2025 10:46-0400 Body mass index (BMI) [Ratio]30.9 kg/w8LfziswJanet Keen MECHANICAL INTEGRITY SPECIALIST-BC Work Phone: [phone]09-25-2025 10:46-0400 Body wbwmvoazwbf25.4 [degF]Janet Keen MECHANICAL INTEGRITY SPECIALIST-BC Work Phone: [phone]09-25-2025 10:46-0400 Body liyfcp38.37 kgJanet Keen MECHANICAL INTEGRITY SPECIALIST-BC Work Phone: [facility]09-25-2025 10:46-0400 Heart rate97 /Pola Keen MECHANICAL INTEGRITY SPECIALIST-BC Work Phone: [facility]09-25-2025 10:46-0400 Respiratory rate18 /Pola Keen MECHANICAL INTEGRITY SPECIALIST-BC Work Phone: [facility]09-25-2025 10:46-0400 SaO2% (BldA) [Mass fraction]98 %Janet Keen MECHANICAL INTEGRITY SPECIALIST-BC Work Phone: [phone]02-14-2019 23:33-0500 Respiratory rate14 /minDEFAULT PHYSICIANThe [facility] Comment on above:Performed By: #### 91211 #### [facility] [address] [place] [address], [id number] 22:19-0500Respiratory rate14 /minDEFAULT PHYSICIANThe [facility] CenterComment on above:Order Comment: No: Do not add to previous drawPerformed By: #### 36856 #### [facility] [address] [place] [address], [id number] 20:34-0500Respiratory rate12 /minDEFAULT PHYSICIANThe [facility] CenterComment on above:Performed By: #### 44568 #### [facility] [address] [facility]. [address] Encounters Encounter DateEncounter TypeCare ProviderFacilityStart: 64-16-9889fsrgmdqbwmJW Dandre BurgerFacility:[facility] CenterevueStart: 71-81-4157sadkvmtortNYLLUM A LEHMANN Facility:[facility] CenterevueStart: 12-26-2024 End: 62-14-8678Prkikfn encounter procedureDereck Goodson MD-Ultrasound [facility] Work Phone: Start: 12-26-2024 End: 60-37-7109oavyzrozpiRtwisr A Leonila MECHANICAL INTEGRITY SPECIALIST-BC Work Phone: [facility] Work Phone: Start: 12-07-2024 End: 27-94-7491kkcgjiluvsLuhhvt A Leonila MECHANICAL INTEGRITY SPECIALIST-BC Work Phone: [facility] Work Phone: Start: 12-07-2024 End: 19-13-8692Apgufbj encounter procedureDereck Goodson MD-[facility] [place] Work Phone: Start: 11-02-2024 End: 53-99-4741ftusdygghjHNBHOHE [facility] Centertart: 09-28-2024 End: 34-81-9561wzqnvowxbjRICKNH A LEHMANNFacility:[facility] BellevueStart: 09-04-2024 End: 98-04-0360lhupzpenrpNSTKCN A LEHMANNFacility:FTMCStart: 09-04-2024 End: 97-22-0803Cezyueu encounter procedureSISIS KEEN [facility] Start: 08-31-2024 End: 42-41-9382qloyxfcmmiWDNFFW A TESHAHMANNFacility:[facility] BellevueStart: 06-29-2024 End: 40-49-9499kcttisgtihTizbkn E. RossFacility:[facility] BellevueStart: 06-21-2024 End: 86-96-5459vbttkzlsykERAngel BurgerFacility:FTMCStart: 06-21-2024 End: 78-68-6090Odpbvqb encounter procedureSonofre Burger [facility] Start: 06-01-2024 End: 21-72-1402fovonjqplmXKAngel BurgerFacility:FTMCStart: 06-01-2024 End: 73-14-5044Dgeacjt encounter procedureSonofre Burger [facility] Start: 05-11-2024 End: 30-50-8636csqerusgypUdsrny E. RossFacility:[facility] BellevueStart: 04-06-2024 End: 60-98-3324dhadxwwgxsElmvgz E. RossFacility:FTMCStart: 04-06-2024 End: 23-83-4858Hfz Drop offSonofre Burger [facility] Start: 04-06-2024 End: 89-93-5769qljcdzgrhkPoaifm E. RossFacility:[facility] BellevueStart: 04-04-2024 End: 01-36-3393ipvnhveypeEqjgux Claudia BurgerFacility:[facility] BellevueStart: 01-04-2024 End: 55-62-6051Bjq Drop offSonofre Burger [facility] Start: 01-04-2024 End: 62-15-3000hdypuoqchfCafred E. RossFacility:[facility] BellevueStart: 10-04-2023 End: 70-29-0009kojycufoaiSjmlzb Claudia BurgerFacility:[facility] BellevueStart: 09-13-2023 End: 32-93-8386xixmoetoqyDsqrrw Claudia BurgerFacility:[facility] BellevueStart: 08-27-2023 End: 96-53-5654twphaikrtuFFTFND A LEHMANNFacility:[facility] BellevueStart: 07-05-2023 End: 37-17-7134splxvcqcxoFztnlw Claudia BurgerFacility:[facility] BellevueStart: 06-22-2023 ambulatorySamuwiley BurgerFacility:[facility] BellevueStart: 05-19-2023 End: 90-42-0072vfsveoorukUQWQAFR MCGILLNot AvailableStart: 05-05-2023 End: 37-77-6767Ufi Drop offChristinejose Rios [facility] Start: 04-21-2023 End: 74-63-1564rbqnijednkDWYLJFD MCGILLNot AvailableStart: 04-21-2023 End: 48-26-8871Vsxnbvd encounter procedureNoms Sh Aud Audiology [facility] - Lalita Barraza CI AUDComment on above:Sensorineural hearing loss (SNHL) of both ears (Primary Dx)Start: 04-05-2023 End: 54-69-4007Qxo Drop offSonofre Burger [facility] Start: 03-31-2023 End: 27-82-0185zxakfnavcgMKFOABU MCGILLNot AvailableStart: 02-10-2023 End: 89-79-1639jpviwaqvnfSGCVYEY A MCGILLNot AvailableStart: 02-10-2023 End: 09-79-2195mxzbxfxpwoJTSYRLV A MCGILLNot AvailableStart: 12-14-2022 End: 98-61-9042Crr Drop offSonofre Burger [facility] Start: 07-28-2022 End: 58-63-5048vwrkmfksllDR LUIS FRIEDMANFacility:X4Awdks: 07-20-2022 End: 88-07-4013otntstnprhFZ CHARLES HOUSEFacility:X1Ongpn: 04-20-2022 End: 76-22-1747uqliqcxvhlCV CHARLES HOUSEFacility:I8Eemnm: 10-10-2021 End: 35-92-4320yhhtzjwmolLD CHARLES HOUSEFacility:F3Tatel: 08-18-2021 End: 03-27-6342tugwunxlwsMPQCXDN TUCKERFacility:B1Nocru: 04-25-2018 End: 48-73-0491Waiohqpfzx and management of [facility] centerbFELIPE HUGO Facility:[facility]tart: 03-20-2018 End: 41-81-0334Rlctojksam and management of inpatientShahab Ud DinFacility:[facility] Start: 01-19-2018 End: 04-48-4185Ivoeaei encounter procedureDEFAULT PHYSICIANFacility:[facility] Procedures DateProcedureProcedure DetailPerforming ClinicianStart: 12-26-2024 Ultrasonography of bilateral kidneysJanet Keen MECHANICAL INTEGRITY SPECIALIST-BC Work Phone: Start: 04-20-3398Xbosrkch screenDEFAULT PHYSICIAN Comment on above:Performed By: #### [id number] #### [facility] [address] [place] [address], USAStart: 60-95-3059FAEJPN 1 COR ART FROM THOR ART, OPEN APPROACHNNAMDI AZIEStart: 94-05-0057DVMLPU 3 COR ART FROM AORTA WITH AUTOL VN, OPEN APPROACHNNAMDI AZIEStart: 92-10-6646VLLAKRJD OF LEFT SAPHENOUS VEIN, PERC ENDO APPROACHNNAMDI AZIEStart: 02-86-5709KQVITKHGH OF MONITOR DEV INTO PULM TRUNK, PERC APPROACHALI M HASSANStart: 23-60-5531Jleyadubiti of Cardiac Output, ContinuousNNAMDI AZIEStart: 09-05-4535EAVQLEFQP NONAUT RED BLOOD CELLS IN PERIPH VEIN, PERCALI M HASSANStart: 73-09-4909YDHIQBTSSWLJKSN OF HEART WITH AORTA, TRANSESOPHAGEALALI M HASSANStart: 08-41-7065Owusopgh screenDEFAULT PHYSICIAN Comment on above:Performed By: #### 71954, 38285, 87532 #### [facility] [address] [place] [address], USAStart: 52-69-7975YOUJRNGYGZ OF ARTERIAL SATURATION, PERIPHERAL, PERC APPROACHMUHAMMAD R FAISALStart: 40-30-1364CMOVMMVWWDM OF MULTIPLE CORONARY ARTERIES USING OTH CONTRASTGEORGE V MOUKARBELStart: 05-04-2016 ColonoscopySajohana Burger Cesarean sectionSonofre Burger CholecystectomySajohana Burger Coronary artery bypass grafts x 4Samwanda Burger Decompression of median nerveSonofre Burger Excision of lipoma of backDandre Burger History of coronary artery bypass graftingS/P CABG x 3 Dandre Burger Total hysterectomy via vaginal approachDandre Burger Plan of Treatment DateCare ActivityDetailAuthorStart: 05-05-2023 End: 21-08-9822Rywwral encounter rqijftwuv42/21/2024 8:30 AM EST Office Visit [facility] [address] [place] [address] [facility] CI AUDImmunofixation for UrineRiverview Health InstituteRenal function 2000 panel - Serum or PlasmaRiverview Health InstituteUS Kidney - bilateralAdventHealth Kissimmee Immunizations Immunization DateImmunizationNotesCare QcaxwxqmEkfpgxyj38-96-3105pmyzrumtt, high dose seasonal, preservative-free; Translations: [Fluzone High Dose Vaccine] Dandre Burger 452-7600Dhcrfw-BsdlkPromedica Memorial Hospital 75-51-2475akypbsaco, injectable, quadrivalent, preservative freeDandre Burger 216-1615Exgapt-RsfjcPromedica Memorial Hospital 36-55-6632zkdget vaccine recombinantSonofre Burger 616-4434Ryvrmq-SwrlrOur [facility] Of [facility]03-17-2022zoster vaccine recombinantSonofre Burger 029-8073Rgcmlr-BmhmiOur Lady Of Mercy [facility]12-18-2021 SARS-CoV-2 (COVID-19) mRNA BNT-162b2 vaDora Burger 143-0542Qjkwtt-BmwwcPromedica Memorial Hospital 53-84-6015XEVY-CoV-2 (COVID-19) mRNA BNT-162b2 vaDora Burger 222-7605Yahewu-JsflnPromedica Memorial Hospital 24-07-0510SIBB-CoV-2 (COVID-19) mRNA BNT-162b2 vaxSonofre Burger 278-2480Brhujx-OtiguPromedica Memorial Hospital NEGATED: Highlighted row has not occurred!95-13-6459odqhdttii virus vaccine, unspecified formulationSonofre Burger 844-8873Hddsee-VhtezOur Lady Of [facility]cy [facility] Payers DatePayer CategoryPayerPolicy AS21-22-2078Qknt-[id number] [id number] [id number] [id number] 1960Medicaid [id number] 2.16.840.1.183084.3.57[id number] 2.16.840.1.155604.3.579.[id number] 2.840.1.598901.3.579.2.59475-92-2549Vvjldqa0628977 2.16.840.1.852707.3.579.2.88424-24-0913Pqbmzar8433340 2.16.840.1.688273.3.579.2.86189-87-0705Dsttagh2548161 2.16.840.1.965429.3.579.2.89757-88-2839Dbvmguu8102456 2.16.840.1.674757.3.579.2.69107-12-2509Nfiwzkf7258900 2.16.840.1.157895.3.579.2.52954-84-1104Thfuqwc1500328 2.16.840.1.758468.3.579.2.094680-07-5762Xhixwgm7244755 2.16.840.1.119830.3.579.2.473098-47-6802Ymeyvnw3660184 2.16840.1.179732.3.579.2.130906-03-8069Tqtksjj028398 2.16.840.1.954388.3.579.2.330957-49-8909Fcbymes620328 2.840.1.574764.3.579.2.687881-52-2531Hdggsqr10771254 2.840.1.102530.3.579.2.28816-81-8884Sexfuea25014474 2.840.1.347149.3.579.[id number] 2.840.1.163238.3.579.2.87836-16-2504Vborfis20173909 2.840.1.062010.3.579.2.77645-04-3272Wlewrke95763822 2.840.1.611440.3.579.2.22173-85-4536Movmutp25209752 2..840.1.027475.3.579.2.27640-46-9696Bookuvu45832626 2.840.1.451282.3.579.2.4[id number] 2.16.840.1.355518.3.579.2.63045-84-5717Wpilxhj47827805 2.840.1.957094.3.579.2.32878-00-6492Bvpruti60999060 2.16.840.1.522222.3.579.2.08903-22-3164Kldchbi49944886 2.16.840.1.544811.3.579.2.47029-62-6121Qdysimm98669926 2.16.840.1.567633.3.579.2.99933-61-1251Hirjwzd39797506 2.16.840.1.146486.3.579.2.29762-86-9638Kumggbk70644113 2.16.840.1.482361.3.579.2.31005-14-8535Vplsvlw41126463 2.16.840.1.412091.3.579.2.80837-39-6152Mcljlfj04825160 2.16.840.1.269989.3.579.2.86112-58-6583Ztnuadj48990136 2.16.840.1.431702.3.579.2.17027-58-6477Yjxgkrx70323717 2.16.840.1.323045.3.579.2.96578-65-9445Teoufcz58342378 2.16.840.1.009759.3.579.2.267U[id number] 2.16.840.1.189224.3.579.2.531 Social History DateTypeDetailFacilityStart: 12-14-2022 End: 08-03-5810Rokagfe smoking statusHeavy tobacco smoker (finding)[facility] HealthueTobacco smoking statusNeverSt. Charles Hospital BellevueComment on above:Patient quit 4patient smokes 4-5 cigarettes a day. Smoked 1.5 ppd x 8 years, 1 ppd x 4 years, 11 years 1/2 ppdSex Assigned At [facility] HospitalTobacco smoking status NHISTobacco smoking consumption unknownLDS HOSPITAL HealthcareStart: 51-35-5488Emo Assigned At BirthNot on fileLDS HOSPITAL HealthcareStart: 05-05-2023 End: 20-85-3254Emzmtue smoking statusEx-smoker (finding)[facility] on above:Patient quit atient smokes 4-5 cigarettes a day. Smoked 1.5 ppd x 8 years, 1 ppd x 4 years, 11 years 1/2 ppdStart: 04-06-2024 End: 89-17-6785Njsxnbw smoking statusLight tobacco smoker (finding)[facility] on above:Patient quit 03/2023 patient smokes 4-5 cigarettes a day. Smoked 1.5 ppd x 8 years, 1 ppd x 4 years, 11 years 1/2 ppdSexual OrientationLakehealth Beachwood Medical Center Start: 59-27-1902XsfTusdlm (finding)[facility]ertart: 04-37-1310Ucffdnp smoking status NHISSmokes tobacco daily (finding)[facility] Hospitaltart: 23-45-4241Nfb Assigned At [facility] Medical Equipment Procedure CodeEquipment CodeEquipment Original TextEquipment IdentifierDatesMisc DME Prescription, See Instructions, 60 Unspecified/Unknown, 3, Droplet 32G x 1/4 needles. Useto inject insulin sub q twice a day, [facility] [id number], Supply, 160, cm, 01/04/24 7:21:00 EDT, Height/Length Dosing, 78.7, kg, 01/04/24 7:21:00 EDT, Weight DosingStart: 68-77-5430Ukhl DME Prescription, See Instructions, 60 Unspecified/Unknown, 3, Droplet 32G x 1/4 needles. Useto inject insulin sub q twice a day, [facility] [id number], Supply, 160, cm, 01/04/24 7:21:00 EDT, Height/Length Dosing, 78.7, kg, 01/04/24 7:21:00 EDT, Weight DosingStart: 04-74-2477Iqzc DME Prescription, See Instructions, 60 Unspecified/Unknown, 3, Droplet 32G x 1/4 needles. Useto inject insulin sub q twice a day, [facility] [id number], Supply, 160, cm, 01/04/24 7:21:00 EDT, Height/Length Dosing, 78.7, kg, 01/04/24 7:21:00 EDT, Weight DosingStart: 02-29-2248Pbml DME Prescription, See Instructions, 60 Unspecified/Unknown, 3, Droplet 32G x 1/4 needles. Useto inject insulin sub q twice a day, [facility] [id number], Supply, 160, cm, 01/04/24 7:21:00 EDT, Height/Length Dosing, 78.7, kg, 01/04/24 7:21:00 EDT, Weight DosingStart: 30-95-8468Zejq DME Prescription, See Instructions, 60 Unspecified/Unknown, 3, Droplet 32G x 1/4 needles. Useto inject insulin sub q twice a day E11.69, [facility] [id number], Supply, 161.5, cm, 06/29/24 7:50:00 EDT, Height/Length Dosing, 78.4, kg, 06/29/24 7:50:00 EDT, Weight DosingStart: 07-20-2024 Clinical Notes 04-21-2023 to 12-26-2024 Note Date & [id number] [facility]iology [facility] [place] [address] Ultrasound Report Signed Patient: Pato Corral MR#: [id number] : 1960 Acct:[id number] Age/Sex: 64 / F ADM Date: 5 Loc: Room: Type: [facility] Attending Dr: Dereck Goodson MD Ordering Provider: Dereck Goodson MD Date of Service: 12/26/24 US/US renal BI: I25.10 - Atherosclerotic heart disease of [place] coronary... Copies to: Dereck Goodson MD~ BILATERAL RENAL AND BLADDER ULTRASOUND CLINICAL HISTORY: Stage III chronic kidney disease. COMPARISON: None FINDINGS: Estimation of renal size is approximately 10.29 cm on the right and 10.06 cm onthe left. No contourdeforming mass, shadowing stone or hydronephrosis. The urinary bladder is partially distended with a volume of 101.45 ml. No shadowing stone or focal lesion. US/US renal BI IMPRESSION: No acute findings. Impression dictated by: Júnior Yanez Jr., D.OMariia 12/26/2024 2:00 PM Dictation Location: [place] [address] Tech: Marlena Marzena Transcribed By: DIONY 12/26/24 1400 Dictated By: Júnior Yanez Jr, DO 12/26/24 1359 Signed By: 12/26/24 1400 [facility]09-25-2025 Evaluation note* Diagnosis Onset Date Resolution Status Admit Date CAD (coronary artery disease) acuteSept2024 10:43amCKD (chronic kidney disease) stage 3, GFR 30-59 ml/minacuteSeptember 2024 10:43amHyperlipidemiaacuteSeptember 2024 10:43amHypertensive chronic kidney disease with stage 1 through stage 4 chronic kiacuteSeptember 2024 10:43amMicroalbuminuriaacuteSept2024 10:43amSecondary hyperparathyroidismacuteSept2024 10:43amType 2 diabetes mellitus with diabetic chronic kidney diseaseacuteSept2024 10:43am [facility] Work Phone: 1(168) 310-479709-24-2025 NoteShe told me she was scheduled to see them soon. I didn't place a referral.[facility] 11-30-2024 NotePlease let her know her ECHO looked good, normal pumping function, no significant valve issues.[facility]08-21-2025 Note Patient is here today for a 1 year follow up. Patient [...] Musculoskeletal: Positive for back pain and joint pain.[facility]08-21-2025 NoteCardiovascular Medicine [facility] SUBJECTIVE Chief Complaint Patient presents with Coronary Artery Disease Hypertension Hyperlipidemia Pato Corral is a 64 y.o. female here for follow-up. PMHx: DM, CAD s/p CABG 2018, HTN, HLD HPI 11/02/2024 She denies any changes since last seen. She will be seeing nephrology with [facility] for her CKD stage III. [...] vein graft into the (more content not included)...[facility]07-17-2025 NotePatient Education Nephrology Chronic Kidney Disease, Adult Chronic kidney disease (CKD) occurs when the kidneys are slowly and permanently damaged over a longperiod of time. The kidneys are a pair [...] taken to slow kidney damage or to stopit from getting worse. If steps are not [...] tubes of the kidneys and of the surroundingstructures. ? Polycystic kidney disease, in which clusters [...] waste from the body. It may be neededif you have kidney failure. ??? Managing any other conditions that are causing your CKD or making it worse. Follow these instructions at home: Medicines ??? Take keoy-xln-omrlkfo and prescription medicines only as told by your health care provider. Theamount of some medicines that you take may [...] contain nicotine or tobac (more content not included)...[facility]06-19-2025 NotePatient Education Orthopedics Chronic Back Pain Chronic back [...] them backward. ??? Do not sit or plate painter one place for too long. ??? Take short rest breaks during the day. Lying down or standing is often better than sitting. Resting can help relieve pain. ??? When sitting or lying down for a long time, do some mild activity or stretching. This will helpto prevent stiffness and pain. ??? Get regular exercise. Ask your doctor what activities are safe for you. ??? You may have to avoid lifting. Ask your provider how much you can safely lift. ??? If you lift things: ? Bend your knees. ? Keep the weight close to your body. ? Avoid twisting. Medicines ??? Take jmmu-ihw-hpspnke and prescription medicines only as told by [...] your pee (urine) pale yellow. ? Take dtmc-una-mubejlx or prescription medicines. ? Eat foods that [...] provider. Document Revised: 10/19/2022 Document Reviewed: 10/19/2022 [employer] Patient Education ? 2023 [employer].[facility] 06-29-2024 NotePatient Education Nephrology Chronic Kidney Disease, Adult Chronic kidney disease (CKD) occurs when the kidneys are slowly and permanently damaged over a longperiod of time. The kidneys are a pair [...] taken to slow kidney damage or to stopit from getting worse. If steps are not [...] tubes of the kidneys and of the surroundingstructures. ? Polycystic kidney disease, in which clusters [...] waste from the body. It may be neededif you have kidney failure. ??? Managing any other conditions that are causing your CKD or making it worse. Follow these instructions at home: Medicines ??? Take ihwa-wva-jjttwbk and prescription medicines only as told by your health care provider. Theamount of some medicines that you take may [...] contain nicotine or tobac (more content not included)...[facility]02-27-2025 NotePatient Education Emergency Medicine Heart Attack A heart attack occurs when blood and oxygen supply to the heart is cut off. A heart attack can cause damage to the heart that cannot be fixed. A heart attack is also called a myocardial infarction, or [place]. If you think you are having a heart attack, do not wait to see if the symptoms will go away. Get medical help right away. What are the causes? This condition may be caused by: ??? A fatty substance (plaque) in the blood vessels (arteries). This can block the flow of blood tothe heart. ??? A blood clot in the blood vessels that go to the heart. The blood clot blocks blood flow. ??? An abnormal heartbeat. ??? Some diseases, such as problems in red blood cells (anemia)orproblems in breathing (respiratoryfailure). ??? Tightening (spasm) of a blood vessel [...] these instructions at home: Medicines ??? Take rweg-pay-mkuhsad and prescription medicines only as told by [...] vomit. ??? You fe (more content not included)...[facility]01-23-2025 NotePatient Education Nutrition BMI for Adults Body mass [...] This can help you reach a healthy weight.BMI screening can be done again to see if these changes are working. How is BMI calculated? Your height and weight are measured. The BMI is found from those numbers. This can be done with [place] or metric measurements. Note that charts and online BMI calculators are available to help you findyour BMI quickly and easily without doing these [...] measurement is 1.75 m x 1.75 m, whichequals 3.1 meters squared. 3. Divide the number of kilograms (your weight) by the meters squared number. In this example: 70 ?3.1 = 22.6. This is your BMI. What [...] for Disease Control and Prevention: cdc.gov ??? [place] Heart Association: heart.org ??? National Heart, Lung, and Blood [place]: nhlbi.nih.gov This information is not intended to replace advice given to you by your health care provider. Make sure you discuss any questions you have with your health care provider. Document Revised: 11/19/2022 Document Reviewed: 11/12/2022 Elsevier Patient Education ? 2023 [employer].[facility] 09-13-2023 NotePatient Education Nutrition BMI for Adults What is BMI? Body mass index (BMI) is a number that is calculated from a person's weight and height. BMI can help estimate how much of a person's weight is composed of fat. BMI does not measure body fat directly.Rather, it is an alternative to procedures that [...] your height. Both height and weight are measured,and the BMI is calculated from those numbers. This can be done either in Japanese ([place] or metric measurements. Note that charts and online BMI calculators are available to help you find your BMI quickly and easily without having to do these calculations yourself. To calculate your BMI in Japanese ([place] measurements: 1. Measure your weight in [...] meters squared number. In this example: 70 ?3.1 = 22.6. This is your BMI. What [...] for Disease Control and Prevention: www.cdc.gov ? [place] Heart Association: www.heart.org ? National Heart, Lung, and Blood [place]: www.nhlbi.nih.gov Summary ? Body mass index (BMI) is a number that is calculated from a person's weight and height. ? BMI may help estimate how much of a person's weight is composed of fat. BMI can help identify those who may be at higher risk for certain medical problems. ? BMI can be measured using Japanese measurements or metric measurements. ? BMI charts are used to identify whether you are underweight, normal weight, overweight, or obese. This information is not intended to replace advice given to you by your health care provider. Make sure you discuss any questions you have with your health care provider. Document Revised: 11/22/2019 Document Reviewed: 09/29/2019 [employer] Patient Education ? 2022 [employer].[facility] 04-21-2023 History of Present illness Narrative* Lalita Hyde MA - 04/21/2023 9:30 AM EST Patient was in today for a follow up on new hearing aids. Patient arrived not wearing the aids. Shestates that the left aid is not comfortable and she is not hearing well. Patient has decided she would like to return the heairng aids and get KENN hearing aids which she has had in the past. Patient would like to proceed with Phonak KENN R hearing aids in color P7. Patient was scheduled in two weeksto be fit with the KENN hearing aids. documented in [facility] Future Appointments Appointment Date:12/28/2022 07:40:00 AM Scheduled Provider:Dandre Burger MD Location:[facility] Future Appointments Appointment Date:04/12/2023 10:00:00 AM Scheduled Provider: Location[facility] Appointment Type:CT Chest, Low Dose Screening (FT) Appointment Date:05/05/2023 11:00:00 AM Scheduled Provider: Location:[facility] Appointment Type:FM Medicare Wellness Subsequent Appointment Date:07/05/2023 09:15:00 AM Scheduled Provider:Dandre Burger MD Location:[facility] Appointment Type: Open Future Scheduled Tests Radiology* CT Chest, Low Dose Screening 04/12/23 [facility] Future Appointments Appointment Date:07/05/2023 09:15:00 AM Scheduled Provider:Dandre Burger MD Location:[facility] Appointment Type: Open Appointment Date:05/05/2024 11:00:00 AM Scheduled Provider: Location:[facility] Appointment Type:FM Medicare Wellness Subsequent Diagnostic Tests Pending * HCV Antibody RFX to Quant PCR 05/05/23 [facility] Future Appointments Appointment Date:04/04/2024 07:15:00 AM Scheduled Provider:Dandre Burger MD Location:[facility] Appointment Type: Open Appointment Date:05/11/2024 08:00:00 AM Scheduled Provider: [facility] Type:FM Medicare Wellness Subsequent [facility] evaluation + Plan note Future Appointments Appointment Date:05/11/2024 08:00:00 AM Scheduled Provider: [facility] Appoint[facility] Type: Medicare Wellness Subsequent Appointment Date:06/29/2024 08:15:00 AM Scheduled Provider:Dandre Burger MD Location:[facility] Appointment Type: Open [facility] evaluation + Plan note Future Appointments Appointment Date:06/29/2024 08:15:00 AM Scheduled Provider:Dandre Burger MD [facility] App[facility] Type: Open Appointment Date:05/14/2025 08:00:00 AM Scheduled Provider: Location:[facility] Appointment Type: Medicare Wellness Subsequent Future Scheduled Tests Radiology* CT Chest, Low Dose Screening 05/16/24 [facility] evaluation + Plan note Future Appointments Appointment Date:06/29/2024 08:15:00 AM Scheduled Provider:Dandre Burger MD [facility] Appoint[facility] Type: Open Appointment Date:05/14/2025 08:00:00 AM Scheduled Provider: [facility] Appointment Type: Medicare Wellness Subsequent [facility] evaluation + Plan note Future Appointments Appointment Date:09/28/2024 07:40:00 AM Scheduled Provider:Dandre Burger MD [facility] App[facility] Type:FM Open Appointment Date:05/14/2025 08:00:00 AM Scheduled Provider: [facility] Appointment Type: Medicare Wellness Subsequent [facility] evaluation note* Diagnosis Sensorineural hearing loss (SNHL) of both ears- Primary documented in this encounter [facility] Diagnosis Onset Date Resolution Status Admit Date CAD (coronary artery disease) acuteSeptember 2024 10:43amCKD (chronic kidney disease) stage 3, GFR 30-59 ml/minacuteSept2024 10:43amHyperlipidemiaacuteSept2024 10:43amHypertensive chronic kidney disease with stage 1 through stage 4 chronic kiacuteSept2024 10:43amMicroalbuminuriaacuteSept2024 10:43amSecondary hyperparathyroidismacuteSept2024 10:43amType 2 diabetes mellitus with diabetic chronic kidney diseaseacuteDecember 07, 2024 10:43am [facility] Work Phone: Hospital course Narrative No data available for this section [facility] Dis[facility] instructions No data available for this section [facility] CenterProgress note No data available for this section [facility] CenterReason for referral (narrative)No reason for referral information availableUniversity Hospitals [facility] Work Phone: Summary Purpose Family History No Family History Records Found Relationship Condition Age at Onset Recorded Date/T rambo mother Asthma Unknown fatherMyocardial infarctionUnknown Advance Directives No Advanced Directives Records Found Advance Directive Response Recorded Date/ Time Advance Directives No October 09 11:37am Hospital Course Note MR#: [id number] [facility] Pt. Name: Pato Corral Admitted: 03/20/2018 [...] content not included)... Note MR#: [id number] [facility] Pt. Name: Pato Corral Admitted: 04/25/2018 [...] She had 2D (more content not included)... Chief Complaint and Reason for Visit Chief Complaint Admit Date ckd 3 December 07, 2024 10:43am Reason for Visit Admit Date CAD (coronary artery disease) December 07, 2024 10:43am CKD (chronic kidney disease) stage 3, GF R 30-59 ml/min December 07, 2024 10:43am Hyperlipidemia December 07, 2024 10:43am Hypertensive chronic kidney disease with stage 1 through stage 4 chronic ki December 07, 2024 10:43am Microalbuminuria December 07, 2024 10:43am Secondary hyperparathyroidism December 07, 2024 10:43am Type 2 diabetes mellitus wit h diabetic chronic kidney disease December 07, 2024 10:43am Chief Complaint Admit Date ckd 3 December 07, 2024 10:43am I25.10 R80.9 E78.5 N25.81 I12.9 E11.22 N 18.30 December 26, 2024 1:15pm Additional Source Comments INFORMATION SOURCE (unrecogn ized section and content) DATE CREATED AUTHOR 05/17/2018 [facility] DATE CREATED AUTHOR AUTHOR'S ORGANIZ ATION 07/29/2022 [facility] DATE CREATED AUTHOR AUTHOR'S ORGANIZ ATION 05/20/2023 [facility] DATE CREATED AUTHOR AUTHOR'S ORGANIZ ATION 05/13/2024 [facility] DATE CREATED AUTHOR AUTHOR'S ORGANIZ ATION 07/01/2024 [facility] DATE CREATED AUTHOR AUTHOR'S ORGANIZ ATION 09/30/2024 [facility] DATE CREATED AUTHOR AUTHOR'S ORGANIZ ATION 12/22/2024 [facility] DATE CREATED AUTHOR AUTHOR'S ORGANIZ ATION 12/28/2024 [facility] Patient Care team informatio n (unrecognized section and content) Team MemberRelationshipSpecialtyStart DateEnd Date Gianfranco Lau MD [address] [place] [id number] PCP - GeneralFamily Medicine09/08/22 Team Status: Active Member Role Status Dates MALENA Barba Primary Care Provider Active Team Status: Inactive Member Role Status Dates Dereck Goodson MD Attending Provider Active Start : December 07, 2024 End: December 07, 2024MARYBEL [facility] Care ProviderActive Start: December 07, 2024 End: December 07, 2024 Team Status: Inactive Member Role Status Dates MALENA Barba Primary Care Provider Active Start: December 26, 2024 End: December 26myriam Goodson MDAttending ProviderActiveStart: December 26, 2024 End: December 26, 2024 Reason for Visit (unrecogniz ed section and content) ReasonCommentsHearing Aid Check Goals (unrecognized section and content) Goals may be documented in a n alternate section FOR RECORDS PERTAINING TO PATIENTS WHO ARE [...] BE BASED ON THE PRIMARY CLINICAL RECORDS. [facility]. provides no warranty or guarantee of the accuracy or completeness of information in this document.
[2025-01-12 16:04] LABS: Hematocrit 34.7 % (36.0-48.0); Hemoglobin 11.1 g/dL (12.0-16.0); Mean Corpuscular HGB Conc 32.0 g/dL (29.9-35.2); Mean Corpuscular Hemoglobin 26.3 pg (26.7-34.0); Mean Corpuscular Volume 82.2 fL (81.0-99.0); Platelet Count 221 10^3/uL (150-450); Red Blood Count 4.22 10^6/uL (4.20-5.40); White Blood Count 7.2 10^3/uL (4.0-11.0)
[2025-01-12 16:27] LABS: Glucose Urine UA >=1000 mg/dL (NEGATIVE)
[2025-01-12 16:29] LABS: Protein Creatinine Ratio Urine 0.74; Total Protein Urine Random 141.0 mg/dL (<=11.9)
[2025-01-12 16:34] LABS: Iron 29.0 ug/dL (50.0-170.0); Percent Iron Saturation 9.5 %; Total Iron Binding Capacity 304.0 ug/dL (250.0-450.0)
[2025-01-12 16:35] LABS: Albumin Level 3.1 g/dL (3.4-5.0); Anion Gap 13.0; Blood Urea Nitrogen 22.0 mg/dL (7.0-18.0); Calcium 9.3 mg/dL (8.5-10.1); Carbon Dioxide 26.3 mmol/L (21.0-32.0); Chloride 104 mmol/L (98-107); Estimated GFR (African America 41 (>=60 mL/min/1.73m^2); Estimated GFR (Non-African Ame 34 (>=60 mL/min/1.73m^2); Glucose 314 mg/dL (74-106); Magnesium 1.9 mg/dL (1.8-2.4); Potassium 4.3 mmol/L (3.5-5.1); Sodium 139 mmol/L (136-145); Uric Acid 5.3 mg/dL (2.6-6.0)
[2025-01-12 16:50] LABS: Cast Seen? NONE SEEN #/LPF (NONE SEEN); Crystals Seen? None Seen #/HPF (None Seen)
[2025-01-12 16:54] LABS: Ferritin 23.0 ng/mL (8.0-252.0)
[2025-01-16 15:08] LABS: Albumin 3.2 g/dL (2.9-4.4); Alpha-1-Globulin 0.3 g/dL (0.0-0.4); Alpha-2-Globulin 1.0 g/dL (0.4-1.0); Free Kappa Lt Chains,S 52.4 mg/L (3.3-19.4); Free Lambda Lt Chains,S 50.0 mg/L (5.7-26.3); Gamma Globulin 0.6 g/dL (0.4-1.8); Immunoglobulin A, Qn, Serum 277 mg/dL (87-352); Kappa/Lambda Ratio,S 1.05 (0.26-1.65)
== END 2025-01-12 15:35 | disposition home or self-care (01) ==
PROVIDERS: PCP Nurse Practitioner Family; Visit Provider Internal Medicine
DX: I25.10 Atherosclerotic heart disease of native coronary artery without angina pectoris (principal); R80.9 Proteinuria, unspecified; E78.5 Hyperlipidemia, unspecified; N25.81 Secondary hyperparathyroidism of renal origin; I12.9 Hypertensive chronic kidney disease with stage 1 through stage 4 chronic kidney disease, or unspecified chronic kidney disease; E11.22 Type 2 diabetes mellitus with diabetic chronic kidney disease
CPT/HCPCS: 36415; 80069; 81001; 82306; 82570; 82728; 82784; 83521; 83540; 83550; 83735; 83970; 84155; 84156; 84165; 84166; 84550; 85027; 86334; 86335

== ENCOUNTER 2025-02-23 11:35 | Emergency (ER) | payer MEDICARE, MEDICAID, SELFPAY ==
--- OUTSIDE RECORDS SUMMARY | 2025-02-22 10:43 | XMS_ITS | Continuity of Care Document ---
Author Organization [facility] Address [address] [place] [address] Phone Care Team Providers Care Grade Recorder Name Role Phone Marlo Goodson Attending Provider Magda Keen Primary Care Provider + Marlena Carver APRN Primary Care Provider Marlena Carver APRN Attending Provider Lyle Emmanuel APRN Attending Provider Care Teams Patient Care Team Team Status: Active Member Role/Relationship Status Dates Marlena Carver APRN SEXUAL ABUSE COUNSELLOR-C Primary Care Provider Active Visit Care Team Team Status: Inactive Member Role/Relationship Status Dates Dereck Goodson MD Attending Provider Active Start : December 07, 2024 End: December 07, 2024Luan Barba Care ProviderActive Start: December 07, 2024 End: December 07, 2024 Visit Care Team Team Status: Inactive Member Role/Relationship Status Dates MALENA Barba Primary Care Provider Active Start: December 26, 2024 End: December 26Pk Ashford ProviderActiveStart: December 26, 2024 End: December 26, 2024 Visit Care Team Team Status: Active Member Role/Relationship Status Dates MALENA Barba Primary Care Provider Active Start: January 12, 2025 Pk Monreal ProviderActiveStart: January 12, 2025 Visit Care Team Team Status: Inactive Member Role/Relationship Status Dates MALENA Barba Primary Care Provider Active Start: January 18, 2025 End: January 18Pk Ashford ProviderActiveStart: January 18, 2025 End: January 18, 2025 Visit Care Team Team Status: Inactive Member Role/Relationship Status Dates Marlena Carver APRN SEXUAL ABUSE COUNSELLOR-C Primary Care Provider Active Start: January 232024 End: January 23, 2025Marlena Carver APRN NP-Shirin ProviderActive Start: January 23, 2025 End: January 23, 2025 Patient Care Team Team Status: Inactive Member Role/Relationship Status Dates Marlena Carver APRN SEXUAL ABUSE COUNSELLOR-C Primary Care Provider Active Start: February 222024 End: February 22, 2025Julissa Huber ProviderActiveStart: February 22, 2025 End: February 22, 2025 Chief Complaint and Reason for Visit Chief Complaint Admit Date ckd 3 December 07, 2024 10:43am I25.10 R80.9 E78.5 N25.81 I12.9 E11.22 N 18.30 December 26, 2024 1:15pm RENAL 6 WEEK F/U January 18, 2025 2 :39pm Establish Care January 23, 2025 8:19am Carrieachebharat February 22, 2025 1:52pm Reason for Visit Admit Date CAD (coronary [...] chronic kidney disease December 07, 2024 10:43am Anemia of renal disease January 18 2:39pm CAD (coronary artery disease) January 182024 2:39pm CKD (chronic kidney disease) stage 3, GF R 30-59 ml/min January 18, 2025 2:39pm Hyperlipidemia January 18, 2025 2 :39pm Hypertensive chronic kidney disease with stage 1 through stage 4 chronic ki January 18, 2025 2:39pm Microalbuminuria January 18, 2025 2 :39pm Secondary hyperparathyroidism January 182024 2:39pm Type 2 diabetes mellitus wit h diabetic chronic kidney disease January 18, 2025 2:39pm CAD (coronary artery disease) January 132024 8:19am CKD (chronic kidney disease) stage 3, GF R 30-59 ml/min January 23, 2025 8:19am Diabetic neuropathy associat ed with type 2 diabetes mellitus January 23, 2025 8:19am Hyperlipidemia January 23, 2025 8:19am Hypertension January 23, 2025 8:19am Microalbuminuria January 23, 2025 8:19am Type 2 diabetes mellitus wit h diabetic chronic kidney disease January 23, 2025 8:19am CAD (coronary artery disease) February 122024 1:52pm Diabetic neuropathy associat ed with type 2 diabetes mellitus February 22, 2025 1:52pm Dietary counseling and surveillance Dece er 2024 1:52pm Hyperlipidemia February 22, 2025 1:52pm Hypertension February 22, 2025 1:52pm Type 2 diabetes mellitus wit h diabetic chronic kidney disease February 22, 2025 1:52pm Obstructive sleep apnea syndrome Decembe r 2024 1:52pm Allergies, Adverse Reactions, Alerts Allergen Type Severity Reaction Last Updated Verified Status No Known Allergies Allergy Unknown February 22, 2025 1:47pmYesActive Social History Smoking Status Status Start Date End Date Date of Observa tion Smokes tobacco daily (finding) February 22, 2025 2:17pm Observation Status Observation Response Date of Response Legal Sex Female (finding) [facility] 1960 Family History Relationship Condition Age at Onset Recorded Date/T rambo mother Asthma Unknown fatherMyocardial infarctionUnknown Problems Active Problems Problem Diagnosis/Recorded Date Onset Date Stat Type 2 diabetes mellitus wit h diabetic chronic kidney disease December 07, 2024 8:13am Unknown Active Secondary hyperparathyroidism December 07, 2024 8:1 3am Unknown Active Dietary counseling and surveillance February 22 8:01am Unknown Active CKD (chronic kidney disease) stage 3, GFR 30-59 ml/min December 07, 2024 8:13am Unknown Active CAD (coronary artery disease) December 07, 2024 8:1 4am Unknown Active Hypertensive chronic kidney disease with stage 1 through stage 4 chronic kidney disease, or unspecified chronic kidney disease December 07, 2024 8:13am Unknown Active Hyperlipidemia December 07, 2024 8:13am Unknown Active Microalbuminuria December 07, 2024 8:14am Unknown Active Diabetic neuropathy associat ed with type 2 diabetes mellitus January 24, 2025 9:03am Unknown Active Anemia of renal disease January 19, 2025 6:00pm Unkn own Active Hypertension January 23, 2025 8:32am Unknown A ctive Medications Medication Status Dose Units Route Directions Qty Days Refills S tart Date Stop Date End Date Reason(s) Instructions Adherence Multivitamin (Daily Multi-Vitamin) tablet Active 1 TAB PO Daily December 06, 2024 11:00pmComplies with drug therapyBupropion Hcl (Wellbutrin Sr) 150 mg tablet sustained-release 12 tkBjuhfb105JXNPTzmea morningSept2024 11:00pmComplies with drug therapyAtorvastatin 80 mg kojkivSoiolu65CU PODailySept2024 11:00pmComplies with drug therapyCarvedilol 25 mg spimbnUjdqdd59JMBHKjzvi dailySept2024 11:00pmmust administer with a meal/foodComplies with drug therapyAlendronate 70 mg dpczcjExsmfypshbzr10NKGZ every weekSept2024 11:00pmNov2024 8:27amGabapentin 400 mg rihrowbKczmfvgeczwl977QFDMZhtvfKorbaefgu 24th, 2025 11:00pmDecember 07, 2024 9:48amAspirin (Adult Aspirin Regimen) 81 mg tablet,delayed release (DR/EC) Lfhiyf44FENRFhjfeIwiairydu 24th, 2025 11:00pmComplies with drug therapyTramadol 50 mg tamwykGphult35EWPAVrmvo 8 hours as neededSe2024 11:00pm UnknownDocusate Sodium (Colace) 100 mg gublqdaQlhtol676AOIITfrgk as needed December 06, 2024 11:00pmComplies with drug therapyLisinopril 2.5 mg tablet Discontinued2.5MGPODailySept2024 11:00pmNov2024 3:17pm Duloxetine 60 mg capsule,delayed release(DR/EC)Utcqbu70LWFZKzoqfQfpkterhq 24th, 2025 11:00pmComplies with drug therapySitagliptin Phos-Metformin (Marumet) 50- 1,000 mg yvtbejYugkhoztaxvf7WUQRPQhztz dailySeptember 2024 11:00pmNov2024 3:00pmInsulin Glargine (Basaglar Kwikpen U-100 Insulin) 100 unit/mL (3 mL) insulin ymlPghjxcsgpzpd74ZJUCNWPBSRJiycn eveningSept2024 11:00pm December 07, 2024 9:52amDulaglutide (Trulicity) 4.5 mg/0.5 mL pen injector Discontinued4.5MGSUBCUTevery weekSept2024 11:00pmDe2024 2:58pmGabapentin 300 mg vfvqchzMsnsyvjoyjvl222BVHFUrijw times dailySept2024 11:00pmJanuary 23, 2025 8:28amIsosorbide Mononitrate 30 mg tablet extended release 24 mxMfhzxn02GUCDPgjtkKeotuglae 24th, 2025 11:00pmUnknown Glimepiride 4 mg mtpswhBzxqqcjeiggj5CFEUCxgpe dailySept2024 11:00pm February 22, 2025 2:04pmInsulin Glargine (Basaglar Kwikpen U-100 Insulin) 100 unit/mL (3 mL) insulin kizVkyiakwymvqj58PMYOONKKGMIiulm dailySept2024 9:49amNove2024 8:51amSitagliptin Phos-Metformin (Marumet) 50- 1,000 mg nzycyzFjcoflywdvsp1HLKTYEjjpUatubqgw 6th, 2025 2:59pmNov2024 3:18pmSitagliptin Phos-Metformin (Marumet) 50-1,000 mg pojqxrXqnneltpxgci1NRICP DailyNov2024 3:17pmDe2024 2:58pmLisinopril 2.5 mg tablet Xxevod4YEROQrfnaLaitmiij 6th, 2025 3:17pmComplies with drug therapyFerrous Sulfate 325 mg (65 mg iron) hyqjvbEqcydq634JETTMqobi 48 idvia790XxjztdhwJanuary 18, 2025 12:00amComplies with drug therapyGabapentin 400 mg rjlsdmzLmvwrj961ONGW Three times dailyNov[facility]20[facility] 12:00amComplies with drug therapyAmlodipine 5 mg gyfnewFfjeuw3PUYQTscijLxmutkeh 2024 12:00amUnknownInsulin Glargine (Basaglar Kwikpen U-100 Insulin) 100 unit/mL (3 mL) insulin ulvNjorjq54ISHF SUBCUTTwice nvqxm77925Ktqebsfg 2024 8:50amType 2 diabetes mellitus with diabetic chronic kidney disease Type 2 diabetes mellitus with diabetic chronic kidney diseaseComplies with drug therapyTirzepatide (Mounjaro) 5 mg/0.5 mL pen nqyqpmrlWbaukl9LBVNFJYDwtrae week2 1[facility] 2024 12:00amType 2 diabetes mellitus with diabetic chronic kidney disease Obstructive sleep apnea syndrome Type 2 diabetes mellitus with diabetic chronic kidney disease Chronic kidney disease, stage 3b watermaster (current) use of insulin Obstructive sleep apnea (adult) (pediatric)Complies with drug therapy Empagliflozin (Jardiance) 10 mg wqslgzSuqqkr19TCBYKswyd843Cxfijxqa 2024 12:00amType 2 diabetes mellitus with diabetic chronic kidney disease Type 2 diabetes mellitus with diabetic chronic kidney disease Chronic kidney disease, stage 3b group home (current) use of insulinComplies with drug therapy Procedures Procedure Date Performed Status US renal BI December 26, 2024 12:18pm compl eted Relevant Diagnostic Tests and/or Laboratory Data Laboratory Results Test Collection Date/Time Result Date/Time Result Interpretation Reference Range Result Comment Performing Site Urine Immunofixation January 12, 2025 2:43pm January 12, 2025 2:43pm Comment .No monoclonality detected.Performed at: [facility] [id number] Director: Luigi Perez PhD, Phone: [phone] Other CastsOctober 2024 2:43pmNONE SEEN #/LPFNONE SEENUrine Random CreatinineOctober 2024 2:43pmOct2024 2:38uk596.07 mg/dL 20.00-300.00Immunoglobulin GOct2024 2:55pmOct2024 2:55pm 718 mg/wF555-4708Ivytccglrba Hormone (Intact)January 12, 2025 2:55pmOct2024 2:55pm21 pg/xL59-19Qdaicnzeb at: - [facility] [address] [place], [place] [id number] Director: Luigi Perez PhD, Phone: [phone]- Hydroxy Vitamin D TotalOct2024 2:55pmOct2024 2:55pm34.8 ng/mL<20 ng/mL Vit D -<30 ng/mL Vit D ryicimbffjcd54-646 ng/mL Vit D sufficient>100ng/mL Potential ToxicityFerritinOct2024 2:55pmOct2024 2:55pm23.0 ng/mL8.0-252.0Magnesium LevelOct2024 2:55pm January 12, 2025 2:55pm1.9 mg/dL1.8-2.4Uric AcidJanuary 12, 2025 2:55pm January 12, 2025 2:55pm5.3 mg/dL2.6-6.0Anion GapOct2024 2:55pm January 12, 2025 2:55pm13.0Iron SaturationOct2024 2:55pmOct2024 2:55pm9.5 %HematocritOct2024 2:55pmOct2024 2:55pm34.7 %Below low sivwik71.0-48.0Bedside Hemoglobin F3eBrhfbjyl2024 8:49amNovemb2024 8:50am8.1 %Above high normalBedside GlucoseDece2024 2:27pmDecemb2024 2:48wr219Azrdfcx Hemoglobin Q4fOibyvxyb2024 2:28pmDecemb2024 2:28pm8.2 %Urine Other CrystalsOct2024 2:43pmNone Seen #/HPFNone SeenUrine Protein/Creatinine RatioOct2024 2:43pmOct2024 2:43pm0.74Protein Electrophoresis M-Edis January 12, 2025 2:55pmOct2024 2:55pmNot Observed g/dLNot Observed AlbuminJanuary 12, 2025 2:55pmOct2024 2:55pm3.1 g/dLBelow low normal3.4-5.0Iron LevelOct2024 2:55pmOct2024 2:55pm29.0 ug/dLBelow low fahkwb64.0-170.0HemoglobinOct2024 2:55pmOctober 2024 2:55pm11.1 g/dLBelow low aadhiz37.0-16.0Urine BacteriaJanuary 12, 2025 2:43pmTRACE #/HPFAbnormal (applies to non-numeric results)NONE SEENUrine Random Total ProteinOct2024 2:43pmOct2024 2:20um474.0 mg/dLAbove high normal<=11.9Globulin (PEP)January 12, 2025 2:55pmOctober 2024 2:55pm3.0 g/dL2.2-3.9BUN/Creatinine RatioOct2024 2:55pmOct2024 2:55pm14.4Total Iron Binding CapacityOct2024 2:55pmOct2024 2:88lr473.0 ug/dL250.0-450.0Mean Corpuscular HemoglobinOct2024 2:55pmOct2024 2:55pm26.3 pgBelow low pcvveo04.7-34.0Urine Bilirubin January 12, 2025 2:43pmNEGATIVENEGATIVEAlbumin/Globulin (PEP)January 12, 2025 2:55pmOctober 2024 2:55pm1.10.7-1.7Blood Urea NitrogenOct2024 2:55pmOct2024 2:55pm22.0 mg/dLAbove high normal7.0-18.0Mean Corpuscular Hemoglobin ConcentOctober 2024 2:55pmOctober 2024 2:55pm 32.0 g/dL29.9-35.2Urine Occult BloodOctober 2024 2:43pmNEGATIVENEGATIVE Serum Immunofixation InterpretationOctober 2024 2:55pmOctober 2024 2:55pmComment.No monoclonality detected.Calcium LevelOctober 2024 2:55pm January 12, 2025 2:55pm9.3 mg/dL8.5-10.1Mean Corpuscular VolumeOctober 2024 2:55pmOctober 2024 2:55pm82.2 fL81.0-99.0Urine AppearanceOctober 2024 2:43pmCLEARCLEARProtein Electrophoresis NoteOctober 2024 2:55pm January 12, 2025 2:55pmComment.Protein electrophoresis scan will follow via computer,mail, or dog breeder delivery.Chloride LevelOctober 2024 2:55pm January 12, 2025 2:75ja855 mmol/A51-250Yvln Platelet VolumeOctober 2024 2:55pmOctober 2024 2:55pm9.1 fLBelow low normal9.5-13.5Urine ColorOctober 2024 2:43pmYELLOWYELLOWFree [place] Light Chains, QuantOctober 2024 2:55pmOctober 2024 2:55pm52.4 mg/LAbnormal (applies to non-numeric results)3.3-19.4Carbon Dioxide LevelOctober 2024 2:55pmOctober 2024 2:55pm26.3 mmol/L21.0-32.0Platelet CountOctober 2024 2:55pmOctober 2024 2:36ia355 10 3/zA723-369Afnuw Glucose (UA)January 12, 2025 2:43pm>=1000 mg/dLAbnormal (applies to non-numeric results)NEGATIVEFree [place] Light Chains, QuantOctober 2024 2:55pmOctober 2024 2:55pm50.0 mg/LAbnormal (applies to non-numeric results)5.7-26.3CreatinineOctober 2024 2:55pm January 12, 2025 2:55pm1.53 mg/dLAbove high normal0.55-1.02Red Blood Count January 12, 2025 2:55pmOctober 2024 2:55pm4.22 10 6/uL4.20-5.40Urine KetonesOctober 2024 2:43pm15 mg/dLAbnormal (applies to non-numeric results)NEGATIVEFree [place]/Lambda Light Chain RatioOctober 2024 2:55pm January 12, 2025 2:55pm1.050.26-1.65Performed at: - [facility] [address] [id number] Director: Luigi Perez PhD, Phone: [phone] GFR ()January 12, 2025 2:55pmOctober 2024 2:64og69Avjnu low normal>=60 mL/min/1.73m 2Red Cell Distribution Width January 12, 2025 2:55pmOctober 2024 2:55pm14.4 %11.0-15.0Urine Leukocyte EsteraseOctober 2024 2:43pmNEGATIVENEGATIVEImmunoglobulin AOctober 2024 2:55pmOctober 2024 2:85qi887 mg/qP29-570Nkcokrman GFR (Non- AmericanOctober 2024 2:55pmOctober 2024 2:23nk22Lwgqz low normal>=60 mL/min/1.73m 2Corrected White Blood CountOctober 2024 2:55pmOctober 2024 2:55pm7.2 10 3/uL4.0-11.0Urine MucusOctober 2024 2:43pmNONE SEENNONE SEENImmunoglobulin MOctober 2024 2:55pmOctober 2024 2:55pm26 mg/dL 26-217Glucose LevelOct2024 2:55pmOctober 2024 2:45rv091 mg/dL Above high bhmejf02-234Cozxo NitriteOctober 2024 2:43pmNEGATIVENEGATIVE Serum Total ProteinOct2024 2:55pmOctober 2024 2:55pm6.2 g/dL 6.0-8.5Potassium LevelOct2024 2:55pmOctober 2024 2:55pm4.3 mmol/L3.5-5.1Urine pHOctober 2024 2:43pm5.55.0-9.0Albumin (Send Out) January 12, 2025 2:55pmOctober 2024 2:55pm3.2 g/dL2.9-4.4Sodium Level January 12, 2025 2:55pmOctober 2024 2:71zm248 mmol/O182-487Bsvbl Protein January 12, 2025 2:89rl508 mg/dLAbnormal (applies to non-numeric results) NEG/GVSQBKxqqg-1-DxlvakmyeTsceinq 2024 2:55pmOctober 2024 2:55pm0.3 g/dL0.0-0.4Phosphorus LevelOct2024 2:55pmOctober 2024 2:55pm3.6 mg/dL2.6-4.7Urine RBCOctober 2024 2:04fs7-3 #/SNO0-2Xctsr-9-Globulins January 12, 2025 2:55pmOctober 2024 2:55pm1.0 g/dL0.4-1.0Urine Specific GravityOct2024 2:43pm1.0251.005-1.025Beta GlobulinsOctober 2024 2:55pmOctober 2024 2:55pm1.1 g/dL0.7-1.3Urine Squamous Epithelial Cells January 12, 2025 2:43pmFEW #/LPFAbnormal (applies to non-numeric results) NONE/RAREGamma GlobulinsOctober 2024 2:55pmOctober 2024 2:55pm0.6 g/dL0.4-1.8Urine UrobilinogenOct2024 2:43pm0.2 EU/dL0.2-1.0Urine WBC January 12, 2025 2:51wg7-5 #/HPFAbnormal (applies to non-numeric results)NONE SEEN Diagnostic Imaging Reports Author Júnior Yanez [facility] HospitalAuthoredOctthe medical center 2024 1:59pmReportDictated Date/TimeDictated ByStatusRadiology ReportOctober 2024 1:59pmJoselucian Yanez Jr DOcompleteSt. [facility] [place] [address] [place] [address] Ultrasound Report Signed Patient: Jaclyn Corral MR#: [id number] : 1960 Acct:[id number] Age/Sex: 64 / F ADM Date: 5 Loc: Room: Type: [facility] Attending Dr: Dereck Goodson MD Ordering Provider: Dereck Goodson MD Date of Service: 12/26/24 US/US renal BI: I25.10 - Atherosclerotic heart disease of [place] coronary... Copies to: Dereck Goodson MD~ BILATERAL [...] findings. Impression dictated by: Júnior Yanez Jr., D.O. 12/26/2024 2:00 PM Dictation Location: [place] [address] Tech: Marlena Ivan Transcribed By: DIONY 12/26/24 1400 Dictated By: Júnior Yanez Jr, DO 12/26/24 1359 Signed By: <Electronically signed by Júnior Yanez Jr, DO in OV> 12/26/24 1400 Vital Signs Vital Reading Result Reference Range Collection Date/Time Height 63 [in_i] December 07, 2024 9:54cfSbsajo12.37 kgSeptember 2024 9:46amBody Uxlmxemoxrq97.4 [degF]97.6-99.0September 2024 9:46amHeart Rate97 /min 60-100September 2024 9:46amRespiratory rate18 /mcf02-21Afxubetni 2024 9:46amOxygen saturation by Pulse abmljouv76 %95-100September 2024 9:46amBP Btojzgtu342 mm[Hg]100-140September 2024 9:57amBP Voiilmuqr860 mm[Hg]60-100September 2024 9:57amBMI (Body Mass Index)30.9 kg/c5Esliblztc2024 9:48kfZmigjw25 [in_i]January 18, 2025 2:14bmDvkefd83.19 kgNov2024 2:54pmBody Dxryjlobsde60.4 [degF]97.6-99.0November 2024 2:54pm Heart Rate86 /xeg06-386Ejmhkznk 6th, 2025 2:54pmRespiratory rate18 /kwh74-61 January 18, 2025 2:54pmOxygen saturation by Pulse paxfbyya91 %95-100November 2024 2:54pmBP Ythjxhdy656 mm[Hg]100-140Nov2024 2:54pmBP Vmitneyrs89 mm[Hg]60-100November 2024 2:54pmBMI (Body Mass Index)31.6 kg/m2 January 18, 2025 2:90eyNucrzh23 [in_i]January 23, 2025 8:41qfWorvff04.64 kg January 23, 2025 8:22amBody Prjjavmwjvh93.7 [degF]97.6-99.0November 2024 8:22amHeart Rate80 /xrw31-553Xfvojmes 2024 8:22amOxygen saturation by Pulse yozemcbj59 %95-100Nov2024 8:22amBP Noxtbjue012 mm[Hg]100-140 January 23, 2025 8:22amBP Apeovxqtv41 mm[Hg]60-100January 23, 2025 8:22am BMI (Body Mass Index)31.8 kg/y5Ghwcvggj2024 8:44sqZokwtk02 [in_i]February 22, 2025 1:31piLocjmc85.20 kgce2024 1:57pmHeart Rate85 /min 60-100February 22, 2025 1:57pmRespiratory rate18 /ays03-16Rzxzvuyv 11th, 2025 1:57pmOxygen saturation by Pulse pmimegxv70 %95-100February 22, 2025 1:57pmBP Cqqqenoc987 mm[Hg]100-1402024 1:58pmBP Mtxaoupnk76 mm[Hg]60-100 February 22, 2025 1:58pmBMI (Body Mass Index)31.7 kg/m0Rqykoknl 2024 1:57pm Advance Directives Advance Directive Response Recorded Date/ Time Advance Directives No October 09 10:37am Insurance Providers Guarantor Jaclyn Corral Address [address] [facility] [address]Mvbqwve Info.Home Phone: Coverage Status Update:2024 Payer Group Member ID Coverage Type Subscriber Relationship to Subscriber Effective Date Expiration Date Medicaid [id number] L Hernandez Id: [id number] [address] [facility] [address] Home Phone: selfParamount [employer]vantage Id: [id number] L Hernandez Id: [id number] [address] [facility] [address] Home Phone: self Encounters Encounter Location(s) Arrival/Admit Date Discharge/Departure Date Discharge/Departure Disposition Provider(s) Departed Physician/ Provider Office Visit -[facility] [place] December 07, 2024 10:43am December 07, 2024 11:23am Discharged to home care or self care (routine discharge) Dereck Goodson MD Departed Clinical -Ultrasound [place] December 26, 2024 1:15pm December 26, 2024 1:16pm Discharged to home care or self care (routine discharge) Dereck Goodson MD Non-patient / Non-visit -[facility] ctober 2024 3:55pm MICHELE Monrealeparted Physician/Provider Office Visit-[facility] Nephrology [place] January 18, 2025 2:39pmJanuary 18, 2025 3:29pmDischarged to home care or self care (routine discharge)MICHELE Monrealeparted Physician/Provider [facility] 8:19amNove2024 9:24amDischarged to home care or self care (routine discharge)Marlena Carver APRN CNPDeparted Physician/Provider Office Visit-[facility] 2024 1:52pmDeceer 2024 3:42pmDischarged to home care or self care (routine discharge)OPAL Huber Recent Diagnosis Onset Date Admit Date CAD (coronary artery disease) Unknown Se pt2024 10:43am CKD (chronic kidney disease) stage 3, GFR 30-59 ml/min Unknown December 07, 2024 10:43am Hyperlipidemia Unknown December 07, 2024 10:43am Hypertensive chronic kidney disease with stage 1 through stage 4 chronic ki Unknown December 07 10:43am Microalbuminuria Unknown December 07, 2024 10:43am Secondary hyperparathyroidism Unknown Se pt2024 10:43am Type 2 diabetes mellitus wit h diabetic chronic kidney disease Unknown December 07, 2024 10:43am Anemia of renal disease Unknown January 18, 2025 2:39pm CAD (coronary artery disease) Unknown No vember 2024 2:39pm CKD (chronic kidney disease) stage 3, GFR 30-59 ml/min Unknown January 18, 2025 2:39pm Hyperlipidemia Unknown January 18 2:39pm Hypertensive chronic kidney disease with stage 1 through stage 4 chronic ki Unknown January 18, 2025 2:39pm Microalbuminuria Unknown January 18, 2 025 2:39pm Secondary hyperparathyroidism Unknown No 2024 2:39pm Type 2 diabetes mellitus wit h diabetic chronic kidney disease Unknown January 18, 2025 2:39pm CAD (coronary artery disease) Unknown No 2024 8:19am CKD (chronic kidney disease) stage 3, GFR 30-59 ml/min Unknown January 23, 2025 8:19am Diabetic neuropathy associat ed with type 2 diabetes mellitus Unknown January 23, 2025 8:19am Hyperlipidemia Unknown January 23, 2 025 8:19am Hypertension Unknown January 23, 2 025 8:19am Microalbuminuria Unknown January 23, 2025 8:19am Type 2 diabetes mellitus wit h diabetic chronic kidney disease Unknown January 23, 2025 8:19am CAD (coronary artery disease) Unknown De 2024 1:52pm Diabetic neuropathy associat ed with type 2 diabetes mellitus Unknown February 22, 2025 1:52pm Dietary counseling and surveillance Unknown February 22, 2025 1:52pm Hyperlipidemia Unknown February 22, 2 025 1:52pm Hypertension Unknown February 22, 2 025 1:52pm Type 2 diabetes mellitus wit h diabetic chronic kidney disease Unknown February 22, 2025 1:52pm Obstructive sleep apnea syndrome Unknown February 22, 2025 1:52pm Assessments Diagnosis Onset Date Resolution Status Admit Date CAD (coronary artery disease) acuteSeptember 2024 10:43amCKD (chronic kidney disease) stage 3, GFR 30-59 ml/minacuteSeptember 2024 10:43amHyperlipidemiaacuteSeptember 2024 10:43amHypertensive chronic kidney disease with stage 1 through stage 4 chronic kiacuteSeptember 2024 10:43amMicroalbuminuriaacuteSeptember 2024 10:43amSecondary hyperparathyroidismacuteSeptember 2024 10:43amType 2 diabetes mellitus with diabetic chronic kidney diseaseacuteSept2024 10:43amAnemia of renal diseaseacuteNovember 2024 2:39pmCAD (coronary artery disease)acuteNovember 2024 2:39pmCKD (chronic kidney disease) stage 3, GFR 30-59 ml/minacuteNovember 2024 2:39pmHyperlipidemiaacuteNovember 2024 2:39pmHypertensive chronic kidney disease with stage 1 through stage 4 chronic kiacuteNov2024 2:39pmMicroalbuminuriaacuteJanuary 18, 2025 2:39pm Secondary hyperparathyroidismacuteNov2024 2:39pmType 2 diabetes mellitus with diabetic chronic kidney diseaseacuteNov2024 2:39pmCAD (coronary artery disease)acuteNov2024 8:19amCKD (chronic kidney disease) stage 3, GFR 30-59 ml/minacuteNov2024 8:19amDiabetic neuropathy associated with type 2 diabetes mellitusacuteJanuary 23, 2025 8:19amHyperlipidemiaacuteNov2024 8:19amHypertensionacuteNov2024 8:19amMicroalbuminuriaacuteJanuary 23, 2025 8:19amType 2 diabetes mellitus with diabetic chronic kidney diseaseacuteNov2024 8:19amCAD (coronary artery disease)[facility]De[facility]2024 1:52pmDiabetic neuropathy associated with type 2 diabetes mellitusacuteDehavenwyck hospital2024 1:52pmDietary counseling and surveillanceacuteFebruary 22, 2025 1:52pmHyperlipidemiaacute February 22, 2025 1:52pmHypertensionacuteDeunited states [facility] 2024 1:52pmType 2 diabetes mellitus with diabetic chronic kidney diseaseacuteDece2024 1:52pmObstructive sleep apnea syndromenoneactiveDece2024 1:52pm Plan of Treatment Author Dereck Goodson [facility] HospitalAuthoredptember 2024 5:08pmIt was a pleasure to see Mrs. Corral in our office for evaluation and management of CKD. As you know she has a CKD due to the longstanding hypertension and diabetes mellitus. Her renal function has been declining due to history of CKD. I have ordered the kidney ultrasound to evaluate the renal anatomy. I have ordered a UA and UPCR to evaluate for hematuria and proteinuria. I discussed with the importance of good DM and HTN control to slow down the progression of CKD. Will continue current dose of the glimepiride, insulin Basaglar and Trulicity. I would recommend to reduce the dose of the sitagliptin/metformin to 25/500 mg twice daily. Will also continue the lisinopril for renal protection. She will benefit with SGLT2 inhibitors including Farxiga Jardiance or Invokana. I have advised to continue to work with PCP for DM control. Her blood pressure is high but she appears to be euvolemic. Will continue current dose of the carvedilol lisinopril and Imdur. Advised her to monitor blood pressure at home and call office if her blood pressure stays above 140 over 90 mmHg. Her serum calcium is within normal limit. Will check PTH and vitamin D. Will continue statins. Advised her to continue to follow-up with PCP for monitoring of LFTs and lipid profile. She is remarkably likely due to diabetic kidney disease and hypertensive nephrosclerosis. Will continue lisinopril. Will increase the dose of the lisinopril as tolerated depending on the proteinuria in the future. Will continue carvedilol, aspirin, statins and Imdur. Advised her to continue to follow with cardiology for CAD management. Author Dereck Goodson [facility]ored[facility] 2024 6:02pmShrocio has CKD due to the longstanding HTN with baseline serum creatinine 1.5 mg/dL. Her renal ultrasound showed unremarkable kidneys. I discussed with the importance of good DM and HTN control to slow down the progression of CKD. Will continue current dose of the glimepiride, insulin Basaglar and Trulicity. Will also continue the lisinopril for renal protection. She will benefit with SGLT2 inhibitors including Farxiga Jardiance or Invokana. I have advised to continue to work with PCP for DM control. Her blood pressure is high but she appears to be euvolemic. I have increased the dose of the lisinopril. Advised her to monitor blood pressure at home and call office if her blood pressure stays above 140 over 90 mmHg. Her MBD parameters including serum calcium, phosphorus, PTH and vitamin D are within the goal. No need for calcitriol. Will continue statins. Advised her to continue to follow-up with PCP for monitoring of LFTs and lipid profile. She has proteinuria likely due to diabetic kidney disease and hypertensive nephrosclerosis. Will continue lisinopril. She has negative workup for paraproteinemia. Will continue carvedilol, aspirin, statins and Imdur. Advised her to continue to follow with cardiology for CAD management. Her hemoglobin is within the target goal but she has a low iron stores. I will prescribe oral iron every other day. She will benefit with a colonoscopy if it has not been done in the recent past. Author Marlena Carriejulietbharat [facility] HospitalAuthoredNovbety 2024 9:19zgU1x 8.1 Increased Insulin to 20 BID Continue Trulicity Referral placed to youth career specialist Prior to your visit today we reviewed your chart and outlined the testing and treatment needed for your care. We discussed possible complications of diabetes including risk of heart disease, stroke, and kidney disease. Your goal is to keep your HgA1C below 7 (preferably <6.5) and your blood pressure less than 130/85 (and preferably < 120/80) and maintaining a healthy weight with a BMI less than 26. We are working together to achieve these goals with the following plan; healthier diet, understanding your medications, and your compliance. Barriers to these goals have been discussed. Elevated in office today, but improved since increased in the Lisinopril by Dr. Goodson. He is currently adjusting her medication to improve control of her blood pressure. Prior to your visit today we reviewed your chart and outlined the testing and treatment needed for your care. We discussed the possible complications of high blood pressure, including increased risk for heart disease, stroke, and kidney disease. Our goal is to keep your blood pressure below 130/85 (an preferably < 120/80) and maintain a healthy weight with a BMI less than 26. We are working together to achieve these goals with the following plan; healthier diet, increased activity and exercise, understanding your medications, and your compliance. Continue on Atorvastatin Following with nephrology- Dr. Goodson, reviewed last note. Following with Dr. Mckeon -- cardiology every 6 months Following with nephrology- Dr. Goodson, reviewed last note. Continue on Gabapentin Stable with use of Gabapentin Last filled in December. Does not need refill today Author Lyle Emmanuel [facility] HospitalAuthoredSkip 2024 2:27pmType 2 diabetes mellitus ? Clinical Notes: 1. Uncontrolled, a Type 2 diabetes with A1c of % 2. Blood glucose levels above target. According to GPal 2 cgm download 02/09- 02/22/25: Avg SG 165. >250-9%, >180-19%, 70-180-72%, <70-0%, <54-0%. CV-30.4%. Reviewed with pt progressive nature and pharmacologic management of type 2 Diabetes. Reviewed healthy eating plate. 3. Patient is alert, oriented and receptive to making changes or counseling Notes: Seen for an assessment of current glucose pattern, changes in treatment plan, this time was spent counseling and coordination of care related to diabetes, risks, and benefits of treatment, medications, and side effects. TOPICS REVIEWED: 1. Time was spent reviewing: a. Basic concepts of diabetes, progressive beta cell , concepts of basal/bolus/corrective insulin requirements. Basal: The goal is fasting blood glucose of 90-130mg. If fasting blood glucose starts to run under 100mg 3x's/ week, decrease dose by 10%. Bolus: The goal is to hold the blood glucose level steady meal to meal. If pt. is going to have increased physical activity after a meal, decrease the schedule meal dose prior to the activity by 30-50%. If pt. skips a meal do not take this dose. Correction: The goal is to correct an elevated glucose back into the 100-150mg range b. Nutrition: Concepts of healthy diet reviewed, encouraged to decrease saturated fat in diet and increase non-starchy vegetables and fruits in diet. BMI: Pt. needs to select one small change to decrease caloric intake or increase physical activity to help decrease weight. c. Correct treatment of hypoglycemia, carry a glucose source at all times on your person, in vehicles, and at bedside. Can use glucose tablets/4, four ounces of pop or juice equal to 15 G of carbohydrate. Blood glucose should be 100 mg/dl or higher when driving. d. ADA glucose goals for age and medical complexity reviewed e. Patient questions addressed 2. Activity/exercise: Encouraged to start any form of physical activity. Start low level and increase slowly to a minimal goal of 150 minutes/week. Limit activity to what is allowed by other issues such as cardiac, pulmonary or orthopedic restrictions. 3. Standards of care: Reminded to have an annual dilated eye exam, A1C every 3 months, urine testing for microalbumin once/year, check feet daily and report any cuts or sores that do not appear to be healing. 4. Meter: Plan to check blood glucose: Please check blood glucose levels 4 times/day. Back to back meals reveal effectiveness of bolus dosing. 5. [facility]. Contact office if any issues or concerns with patterns of hypoglycemia, hyperglycemia, or diabetes medication issues. 6. Prescriptions: 7. Prescriptions will not be filled unless you are compliant with follow up appointments or have a follow up appointment scheduled as ordered by your provider. Refills should be requested at the time of your visit. on arb-managed by pcp 2024 ADA Guidelines- target blood pressure < 130/80, if it can be safely attained. on statin- managed by pcp 2024 ADA guidelines- people with Diabetes age 40-75 at higher CV risk including those with one or more additional ASCVD risk factors, high intensity statin therapy recommended to reduce ldl by >50% of baseline and to obtain goal ldl <70 2024 ADA guidelines- people with Diabetes age 40-75 moderate-intensity statin therapy in those without ASCVD risk factors see above Future Tests Future scheduled test information is unavailable Pending Tests Test Name Ordered Date Scheduled Date Renal Function Panel December 07, 2024 10:16a m 6 Weeks Renal Function Panel January 18, 2025 3:23pm 3 Months Future Visits Future appointment information is unavailable Future Procedures Procedure Name Ordered Date Scheduled Date Dipstick and Microscopic December 07, 2024 10 :16am 6 Weeks Ferritin December 07, 2024 10:16am 6 W eeks Immunofixation,Serum December 07, 2024 10:16a m 6 Weeks Free K+L LT Chains, Qn, S December 07, 2024 1 0:16am 6 Weeks Prot Electrophoresis w/Interp December 07 10:16am 6 Weeks Protein Electrophoresis, Serum December 07, 2 025 10:16am 6 Weeks Uric Acid December 07, 2024 10:16am 6 W eeks Dipstick and Microscopic January 18, 2025 3:23 pm 3 Months Hemogram CBC Without Diff January 18, 2025 3:2 3pm 3 Months Iron and TIBC Profile January 18, 2025 3:23pm 3 Months Ferritin January 18, 2025 3:23pm 3 Jose Carlos hs Magnesium January 18, 2025 3:23pm 3 Jose Carlos hs Protein Creat Ratio Ur Random January 18, 2025 3:23pm 3 Months Parathyroid Hormone Intact January 18, 2025 3: 23pm 3 Months Uric Acid November 6th, 2025 3:23pm 3 Jose Carlos hs Vitamin D 25 Hydroxy Total January 18, 2025 3: 23pm 3 Months Future Medications Future medication information is unavailable Patient Instructions Patient instructions are unavailable
[2025-02-23 11:40] VITALS: BP 220/106; PULSE 83; TEMP 36.6; O2SAT 98; BMI 32.0
--- NOTE | 2025-02-23 11:58 | CT_ITS ---
The [address] [address] Patient Name: PATO HAN MRN: [id number] date: 1960 Sex: F Assigned Patient Location: ER Current Patient Location: .MAIN Accession/Order Number: [id number] Exam Date: 02/23/2025 12:08 Report Date: 02/23/2025 12:46 At the request of: HENRIK GARCIA MD Procedure: CT hip LT wo con CT LUMBAR SPINE AND LEFT HIP WITHOUT CONTRAST WITH 3-D RECONSTRUCTIONS CLINICAL DATA: Patient fell 3 days ago and has low back and left hip pain. COMPARISON: CT abdomen and pelvis 05/24/2021 Spiral images were obtained through the lumbar spine and left hip without contrast. Sagittal, coronal and 3-D volume rendered reconstructions were reviewed. This CT exam was performed using one or more following dose reduction techniques: Automated exposure control, adjustment of the mA and/or kV according to patient size, or use of iterative reconstruction technique. LUMBAR SPINE: Alignment is maintained on the sagittal reconstructions. No acute compression fractures are identified. No pars defects are seen. The disc spaces are uniform. There are small endplate spurs. There is lower lumbar facet hypertrophy. The sacrum and imaged bony pelvis show no acute fracture. The SI joints are maintained and there is minor sclerosis. No paraspinal soft tissue abnormalities are visualized. There is atherosclerotic plaque involving the aorta and its branches. A tiny left renal stone is visualized. There is no hydronephrosis. There are some sigmoid diverticula. LEFT HIP: No acute fracture is identified at the imaged proximal femur, acetabulum or pubic rami. There is no dislocation at the hip. The hip joint space is maintained and there is minimal hypertrophy. The musculotendinous structures in the [id number]-tw-exdm show no abnormalities. No hematoma is seen. There are sigmoid diverticula however no other intrapelvic abnormalities in the [id number]-sdkj. Atherosclerotic disease is seen. CT/CT hip LT wo con IMPRESSION: NO ACUTE BONY INJURY INVOLVING THE LUMBAR SPINE OR LEFT HIP. Impression dictated by: Jen King M.D. 02/23/2025 12:46 PM Dictation Location: [place] [address] Electronically authenticated by: [id number] Y Date: 02/23/2025 12:46
--- NOTE | 2025-02-23 11:58 | CT_ITS ---
The [address] [address] Patient Name: PATO HAN MRN: [id number] date: 1960 Sex: F Assigned Patient Location: ER Current Patient Location: ED.MAIN Accession/Order Number: [id number] Exam Date: 02/23/2025 12:08 Report Date: 02/23/2025 12:46 At the request of: HENRIK GARCIA MD Procedure: CT hip LT wo con CT LUMBAR SPINE AND LEFT HIP WITHOUT CONTRAST WITH 3-D RECONSTRUCTIONS CLINICAL DATA: Patient fell 3 days ago and has low back and left hip pain. COMPARISON: CT abdomen and pelvis 05/24/2021 Spiral images were obtained through the lumbar spine and left hip without contrast. Sagittal, coronal and 3-D volume rendered reconstructions were reviewed. This CT exam was performed using one or more following dose reduction techniques: Automated exposure control, adjustment of the mA and/or kV according to patient size, or use of iterative reconstruction technique. LUMBAR SPINE: Alignment is maintained on the sagittal reconstructions. No acute compression fractures are identified. No pars defects are seen. The disc spaces are uniform. There are small endplate spurs. There is lower lumbar facet hypertrophy. The sacrum and imaged bony pelvis show no acute fracture. The SI joints are maintained and there is minor sclerosis. No paraspinal soft tissue abnormalities are visualized. There is atherosclerotic plaque involving the aorta and its branches. A tiny left renal stone is visualized. There is no hydronephrosis. There are some sigmoid diverticula. LEFT HIP: No acute fracture is identified at the imaged proximal femur, acetabulum or pubic rami. There is no dislocation at the hip. The hip joint space is maintained and there is minimal hypertrophy. The musculotendinous structures in the vsnel-ys-gaiw show no abnormalities. No hematoma is seen. There are sigmoid diverticula however no other intrapelvic abnormalities in the xbttw-fm-aecp. Atherosclerotic disease is seen. CT/CT lumbar spine wo con IMPRESSION: NO ACUTE BONY INJURY INVOLVING THE LUMBAR SPINE OR LEFT HIP. Impression dictated by: Jen King M.D. 02/23/2025 12:46 PM Dictation Location: [place] [address] Electronically authenticated by: [id number] Y Date: 02/23/2025 12:46
--- NOTE | 2025-02-23 12:07 | ED.GENADUL1 ---
HPI HPI - General Adult General Chief complaint: Back Pain/Injury Stated complaint: FALL 02/20 LOWER BACK PAIN Time Seen by Provider: 02/23/25 11:55 Source: patient Mode of arrival: walk-in Limitations: no limitations History of Present Illness HPI narrative: 64-year-old female presented to the emergency department for a chief complaint of pain in her midline lower back and on her left side of her lower back. She fell 2 days ago on ice and hit this area. She did not hit her head. No weakness or numbness in her legs. No other injury was sustained. Related Data Home Medications ?Medication ?Instructions ?Recorded ?Confirmed Colace PO PRN constipation 08/17/22 aspirin 81 mg tablet,delayed 81 mg PO DAILY 08/17/22 02/23/25 release (Adult Aspirin Regimen) atorvastatin 80 mg tablet 80 mg PO DAILY 08/17/22 02/23/25 bupropion HCl 150 mg tablet,12 hr 150 mg PO DAILY 08/17/22 02/23/25 sustained-release (Wellbutrin SR) carvedilol 25 mg tablet (Coreg) 25 mg PO BID 08/17/22 02/23/25 duloxetine 60 mg capsule,delayed 60 mg PO DAILY 08/17/22 02/23/25 release (Cymbalta) gabapentin 400 mg capsule 400 mg PO TID 08/17/22 02/23/25 glimepiride 4 mg tablet 4 mg PO BID 08/17/22 02/23/25 insulin glargine 100 unit/mL 27 unit subcut BID 08/17/22 02/23/25 subcutaneous solution (Lantus U-100 Insulin) isosorbide mononitrate 30 mg 30 mg PO QAM 08/17/22 08/17/22 tablet,extended release 24 hr multivitamin with minerals-iron 1 ml PO 08/17/22 fumarate 9 mg iron/15 mL oral liquid (Complete Multivitamin-Multimineral) amlodipine 5 mg tablet (Norvasc) 5 mg PO DAILY 08/26/22 08/26/22 empagliflozin 10 mg tablet mg 02/23/25 (Jardiance) lisinopril 2.5 mg tablet 2.5 mg PO DAILY 02/23/25 02/23/25 tirzepatide 5 mg/0.5 mL mg subcut 02/23/25 subcutaneous pen injector (Roberto) Previous Rx's ?Medication ?Instructions ?Recorded acetaminophen 300 mg-codeine 30 mg 1 tab PO Q6H PRN pain 5 days #20 02/23/25 tablet tabs Allergies Allergy/AdvReac Type Severity Reaction Status Date / Time No Known Drug Allergies Allergy Verified 02/23/25 11:47 Opioid HPI Opioid Management Most Recent Opioid Data: Last Pain Scale 10 Today, 11:40 Review of Systems ROS Narrative A ten point review of systems is negative except as noted above. PFSH PFSH Medical History (Updated 02/23/25 @ 12:59 by Julian Severino MD) H/O nephrolithotomy with removal of calculi ?Z98.890 - Other specified postprocedural states (ICD-10) ?Z87.442 - Personal history of urinary calculi (ICD-10) Lipoma of back ?D17.1 - Benign lipomatous neoplasm of skin and subcutaneous tissue of trunk (ICD-10) Retinopathy ?H35.00 - Unspecified background retinopathy (ICD-10) Polyneuropathy ?G62.9 - Polyneuropathy, unspecified (ICD-10) Hyperlipidemia ?E78.5 - Hyperlipidemia, unspecified (ICD-10) Hearing loss ?H91.90 - Unspecified hearing loss, unspecified ear (ICD-10) Hypertension ?I10 - Essential (primary) hypertension (ICD-10) Diabetes ?E11.9 - Type 2 diabetes mellitus without complications (ICD-10) Depression ?F32.A - Depression, unspecified (ICD-10) Chronic kidney disease ?N18.9 - Chronic kidney disease, unspecified (ICD-10) COPD (chronic obstructive pulmonary disease) ?J44.9 - Chronic obstructive pulmonary disease, unspecified (ICD-10) Surgical History (Updated 08/17/22 @ 14:09 by Joana Wisdom RN) History of vaginal hysterectomy ?Z90.710 - Acquired absence of both cervix and uterus (ICD-10) Hx of cholecystectomy ?Z90.49 - Acquired absence of other specified parts of digestive tract (ICD-10) History of ?Z98.891 - History of uterine scar from previous surgery (ICD-10) History of carpal tunnel release ?Z98.890 - Other specified postprocedural states (ICD-10) S/P CABG x 4 ?Z95.1 - Presence of aortocoronary bypass graft (ICD-10) H/O colonoscopy ?Z98.890 - Other specified postprocedural states (ICD-10) Family History (Updated 08/17/22 @ 14:11 by Joana Wisdom RN) Brother Family history of hypertension Asthma Colon cancer Prostate cancer Father Family history of hypertension Family history of myocardial infarction Mother Family history of hypertension Asthma Social History (Updated 08/26/22 @ 09:07 by Sandy Nguyen) Within the past year, how often did you have a drink containing alcohol: never Score interpretation: A score less than 3 is consistent with normal alcohol consumption. Smoking status: Former smoker What tobacco products do you use: cigarettes Packs per day: 1 Cigarettes per day: 20 Smoking quit date/years: >15 years ago Little interest or pleasure in doing things: not at all Feeling down, depressed, or hopeless: not at all Exam Narrative Exam Narrative: Nurses note and vital signs reviewed General:The patient is standing when I walk into the room. Skin:Warm, dry, no pallor noted.There is no rash noted. Head:Normocephalic, atraumatic Eye: Normal conjunctiva, no drainage Ears, Nose, Mouth, and Throat: oral mucosa is moist. Nares patent. Cardiovascular:Regular Rate and Rhythm Respiratory:Patient is in no distress, no accessory muscle use, lungs are clear to auscultation, no wheezing, rales or rhonchi GI: Soft and nontender Musculoskeletal: She has scattered bruises on the midline lower back and on the left lower back. No tenderness in the rib area. No crepitus or break in the skin. Neurological:A&O, normal speech Psychiatric:Cooperative Constitutional Vital Signs, click to edit/add: Last Vital Signs Temp 97.8 F 02/23/25 11:40 Pulse 83 02/23/25 11:40 Resp 18 02/23/25 11:40 BP 220/106 H 02/23/25 11:40 Pulse Ox 98 02/23/25 11:40 O2 Del Method Room Air 02/23/25 11:40 Course Vital Signs Vital signs: Vital Signs Temperature 97.8 F 02/23/25 11:40 Pulse Rate 83 02/23/25 11:40 Respiratory Rate 18 02/23/25 11:40 Blood Pressure 220/106 H 02/23/25 11:40 Pulse Oximetry 98 02/23/25 11:40 Oxygen Delivery Method Room Air 02/23/25 11:40 Temperature 97.8 F 02/23/25 11:40 Pulse Rate 83 02/23/25 11:40 Respiratory Rate 18 02/23/25 11:40 Blood Pressure 220/106 H 02/23/25 11:40 Pulse Oximetry 98 02/23/25 11:40 Oxygen Delivery Method Room Air 02/23/25 11:40 Medical Decision Making MDM Narrative Medical decision making narrative: CTs are negative, no fractures. Should be treated symptomatically with Tylenol 3 and was recommended ice. Treatment diagnosis and follow-up were discussed with the patient. Differential Diagnosis Differential Diagnosis: Contusion, fracture Imaging Data CT hip, CT lumbar: Radiologist's impression: ITS Impressions Hip CT 02/23/25 11:58 IMPRESSION: NO ACUTE BONY INJURY INVOLVING THE LUMBAR SPINE OR LEFT HIP. Impression dictated by: Jen King M.D. 02/23/2025 12:46 PM Dictation Location: [facility] Electronically authenticated by: [id number] Y Date: 02/23/2025 12:[address] 02/23/25 11:58 IMPRESSION: NO ACUTE BONY INJURY INVOLVING THE LUMBAR SPINE OR LEFT HIP. Impression dictated by: Jen King M.D. 02/23/2025 12:46 PM Dictation Location: [facility] Electronically authenticated by: [id number] Y Date: 02/23/2025 12:46 Discharge Plan Discharge Chief Complaint: Back Pain/Injury Clinical Impression: Lumbar contusion Patient Disposition: Home, Self-Care Time of Disposition Decision: 12:59 Condition: Good Mode of Transportation: Private Vehicle Prescriptions / Home Meds: New acetaminophen-codeine 300-30 mg tablet 1 tab PO Q6H PRN (Reason: pain) 5 Days Qty: 20 0RF No Action glimepiride 4 mg tablet 4 mg PO BID isosorbide mononitrate 30 mg tablet extended release 24 hr 30 mg PO QAM aspirin [Adult Aspirin Regimen] 81 mg tablet,delayed release (DR/EC) 81 mg PO DAILY atorvastatin 80 mg tablet 80 mg PO DAILY carvedilol [Coreg] 25 mg tablet 25 mg PO BID Rx Instructions: must administer with a meal/food Colace PO PRN (Reason: constipation) duloxetine [Cymbalta] 60 mg capsule,delayed release(DR/EC) 60 mg PO DAILY gabapentin 400 mg capsule 400 mg PO TID insulin glargine [Lantus U-100 Insulin] 100 unit/mL solution 27 unit subcut BID Complete Multivitamin-Mineral 9 mg iron/15 mL liquid 1 ml PO bupropion HCl [Wellbutrin SR] 150 mg tablet sustained-release 12 hr 150 mg PO DAILY amlodipine [Norvasc] 5 mg tablet 5 mg PO DAILY lisinopril 2.5 mg tablet 2.5 mg PO DAILY Jardiance 10 mg tablet Mounjaro 5 mg/0.5 mL pen injector SUBCUT Print Language: Korean Instructions: Contusion in Adults (ED) Referrals: Magda Keen NP [Nurse Practitioner] - 1 week
--- OUTSIDE RECORDS SUMMARY | 2025-02-23 12:37 | XMS_ITS | CCD ---
Author Organization [facility] Care Team Providers Care Diver Helper Name Role Phone PHYSICIAN, DEFAULT Admitting Unavailable PHYSICIAN, DEFAULT Attending Unavailable James Live Admitting Unavailable ANDREI TSE Referring Unavailable OLDS, GIANFRANCO Primary Care Unavailable CATE RAMIREZ Attending Unavailable FELIPE UHGO Admitting Unavailable HOUSE, GIANFRANCO Referring Unavailable HOUSE, GIANFRANCO Primary Care Unavailable Bernardo, Karen Attending Unavailable PA Procedure Practitioner Unavailab le Azie, Karen Surgeon Unavailable PA Procedure Practitioner Unavailab le UNKNOWN, PROVIDER Surgeon Unavailable PA Procedure Practitioner Unavailab le OANH, WANG R Surgeon Unavailable PA Procedure Practitioner Unavailab le PHILIPPE MIRANDA Surgeon Unavailable RAJINDER MOHAMUD Admitting Unavailable [place], DR ART June Consulting Unavailable OLDS, DR BECERRA Primary Care Unavailable RAJINDER MOHAMUD Attending Unavailable RAJINDER MOHAMUD Consulting Unavailable IDALIA, DR LUIS Santa Admitting Unavailabl e SID, DR BECERRA Primary Care Unavailable IDALIA, DR LUIS Santa Attending Unavailabl e IDALIA, DR LUIS Santa Consulting Unavailabl e NefPaolo mayer Consulting Unavailable UNLUSAVITA Consulting Unavailable OLDS, DR BECERRA Attending Unavailable OLDS, DR BECERRA Admitting Unavailable OLDS, DR BECERRA Consulting Unavailable OLDS, DR BECERRA Primary Care Unavailable ROMAN, DR ISI Barajas Consulting Unavailable OLDS, DR BECERRA Admitting Unavailable OLDS, DR BECERRA Attending Unavailable OLDS, DR BECERRA Consulting Unavailable OLDS, DR BECERRA Primary Care Unavailable OLDS, DR BECERRA Admitting Unavailable OLDS, DR BECERRA Attending Unavailable OLDS, DR BECERRA Consulting Unavailable OLDS, DR BECERRA Primary Care Unavailable Dandre Burger Primary Care Physician [phone] Gianfranco Lau MD Primary Care Provider SEAN [...] Attending Unavailable MD Dandre Burger Attending Unavailable LEONILA, JANET A Attending Unavailable LEONILA, JANET A Attending Unavailable MD Dandre Burger Referring Unavailable MD Dandre Burger Admitting Unavailable MD Dandre Burger Attending Unavailable MD Dandre Burger Admitting Unavailable MD Dandre Burger Attending Unavailable MD Dandre Burger Referring Unavailable LEONILA, JANET A Admitting Unavailable JANET KEEN A Attending Unavailable MD Dandre Burger Admitting Unavailable MD Dandre Burger Attending Unavailable Dereck Goodson MD [facility] RAJINDER MOHAMUD Attending Unavailable Janet Keen Primary Care Unavailable Dereck Goodson Attending Unavailable Dereck Goodson Admitting Unavailable Dereck Goodson MD Attending Provider [phone] [facility] Marlena Carver APRN Primary Care Provider Marlena Carver APRN Attending Provider Allergies Allergy ClassificationReported Allergen(s)Allergy TypeDate of OnsetReaction(s) Facility (3 sources)No Known Medication Allergies; Translations: [No Known Medication Allergies]Propensity to adverse reactions (disorder)[facility] Repository Medications Current Medications MedicationDrug Class(es)DatesSig (Normalized)Sig (Original)amLODIPine 5 mg oral tablet (4 sources)Dihydropyridine Calcium Channel BlockerStart: 86-93-9543ccfm 1 tablet by mouth once dailyAmlodipine 5 mg tablet Active 5 MG PO Daily January 23, 2025 12:00am Complies with drug therapyStart: 61-23-0771jihw 1 tablet by mouth once dailyamLODIPine 5 mg Tab 5 mg = 1 tab(s), Oral, Daily, Refills(s) 0 Start Date: 07/31/22 Status: Orderedaspirin 81 mg delayed release oral tablet (12 sources)Platelet Aggregation Inhibitor, Nonsteroidal Anti-inflammatory Drug Start: 90-46-8736tuke 1 tablet by mouth once dailyAspirin (Adult Aspirin Regimen) 81 mg tablet,delayed release (DR/EC) Active 81 MG PO Daily December 06, 2024 11:00pm Complies with drug therapyStart: 38-26-1618rnyh 1 tablet by mouth once dailyaspirin 81 mg Oral EC Tab 81 mg = 1 tab(s), Oral, Daily, Refills(s) 0 Start Date: 07/31/22 Status: Ordered Repeat number: 1atorvastatin 80 mg oral tablet (12 sources)HMG-CoA Reductase InhibitorStart: 12-65-3971fnbj 1 tablet by mouth once dailyAtorvastatin 80 mg tablet Active 80 MG PO Daily December 06, 2024 11:00pm Complies with drug therapyStart: 65-17-1772ykxw 1 tablet by mouth once dailyatorvastatin 80 mg Tab 80 mg = 1 tab(s), Oral, Daily, # 90 tab(s), Refills(s) 3, Pharmacy: [facility] [id number], 160, cm, 10/04/23 8:29:00 EDT, Height/Length Dosing, 83, kg, 10/04/23 8:29:00 EDT,Weight Dosing Start Date: 12/28/23 Status: Ordered Quantity: 90.0 Unit: tab(s) Repeat number: 4Start: 34-06-3890fhxd 1 tablet by mouth once dailyatorvastatin 80 mg Tab 80 mg = 1 tab(s), Oral, Daily, Refills(s) 0 Start Date: 07/31/22 Status: Yxmoznn22 hr buPROPion hydrochloride 150 mg extended release oral tablet (12 sources)AminoketoneStart: 42-04-1290busa 1 tablet by mouth once daily in the morningBupropion Hcl (Wellbutrin Sr) 150 mg tablet sustained-release 12 hr Active 150 MG PO Every morning December 06, 2024 11:00pm Complies with drug therapyStart: 49-75-8823xors 1 tablet by mouth once dailyWellbutrin SR 150 mg Tab-ER 150 mg = 1 tab(s), Oral, Daily, # 90 tab(s), Refills(s) 1, Pharmacy: [facility] [id number], 160, cm, 01/04/24 7:21:00 EDT, Height/Length Dosing, 78.7, kg, 01/04/24 7:21:00 EDT, Weight Dosing Start Date: 02/21/24 Status: Ordered Quantity: 90.0 Unit: tab(s) Repeat number: 2Start: 17-79-7906zuea 1 tablet by mouth once dailyWellbutrin SR 150 mg Tab-ER 150 mg = 1 tab(s), Oral, Daily, # 90 tab(s), Refills(s) 1, [facility]acy: [facility] #[id number], 160, cm, 07/05/23 9:08:00 EDT, Height/Length Dosing, 87.5, kg, 07/05/23 9:08:00 EDT, Weight Dosing Start Date: 07/05/23 Status: OrderedStart: 76-96-3101eufb 1 tablet by mouth once dailyWellbutrin SR 150 mg Tab-ER 150 mg = 1 tab(s), Oral, Daily, Refills(s) 0 Start Date: 07/31/22 Status: Orderedcarvedilol 25 mg oral tablet (12 sources)alpha-Adrenergic Connor, beta-Adrenergic BlockerStart: 12-07-2024 take 1 tablet by mouth twice daily at mealtimeCarvedilol 25 mg tablet Active 25 MG PO Twice daily December 06, 2024 11:00pm must administer with a meal/food Complies with drug therapyStart: 94-02-2848cdfvzshxrh 25 mg Tab See Instructions, TAKE 1 AND 1/2 TABLETS BY MOUTH TWO TIMES A DAY, # 270 tab(s), Refills(s) 0, Pharmacy: [facility] [id number], 161.5, cm, 05/11/24 8:32:00 EST, Height/Length Dosing, 79.8, kg, 05/11/24 8:32:00 EST, Weight Dosing Start Date: 06/26/24 Status: Ordered Quantity: 270.0 Unit: tab(s) Repeat number: 1 Start: 07-23-8015dcqnelsapj 25 mg Tab See Instructions, TAKE 1 AND 1/2 TABLETS BY MOUTH TWO TIMES A DAY, # 270 tab(s), Refills(s) 0, Pharmacy: [facility] [id number], 160, cm, 01/04/24 7:21:00 EDT, Height/Length Dosing, 78.7, kg, 01/04/24 7:21:00 EDT, Weight Dosing Start Date: 03/27/24 Status: Ordered Quantity: 270.0 Unit: tab(s) Repeat number: 1Start: 33-60-8732zsff 5.5 tablets by mouth twice dailycarvedilol 25 mg Tab See Instructions, 1&1/2 orally twice a day, # 270 tab(s), Refills(s) 0, Pharmacy: [facility] [id number], 160, cm, 10/04/23 8:29:00 EDT, Height/Length Dosing, 83, kg, 10/04/23 8:29:00 EDT, Weight Dosing Start Date: 12/28/23 Status: OrderedStart: 18-07-0873xmrdpakqho 25 mg Tab 37.5 mg = 1.5 tab(s), Oral, BID, Refills(s) 0 Start Date: 07/31/22 Status: Order edStart: 55-41-3506bqck 1 tablet by mouth twice dailycarvedilol 25 mg Tab 25 mg = 1 tab(s), Oral, BID, Refills(s) 0 Start Date: 07/31/22 Status: Ordereddocusate sodium 100 mg oral capsule (12 sources)Start: 63-95-1169atqv 1 capsule by mouth once daily as needed Docusate Sodium (Colace) 100 mg capsule Active 100 MG PO Daily as needed December 06, 2024 11:00pm Complies with drug therapyStart: 26-07-5493jwks 1 capsule by mouth once daily as needed for constipationColace 100 mg Cap 100 mg = 1 cap(s), Oral, Daily, PRN for constipation, Refills(s) 0 Start Date: 07/31/22 Status: Ordered Repeat number: 1Dulaglutide (12 sources)GLP-1 Receptor AgonistStart: 88-98-5559Rysfvbyrrpl (Trulicity) 4.5 mg/0.5 mL pen injector Active 4.5 MG SUBCUT every week December 06, 2024 11:00pm Complies with drug therapyStart: 89-30-9112Gaddc: 82-61-9050Rxjetinzlxb (Trulicity) 4.5 mg/0.5 mL pen injector Active 4.5 MG SUBCUT every week December 07, 2024 12:00am Complies with drug therapyStart: 83-94-2138swokwr 4.5 mg by subcutaneous injection every weekTrulicity Pen 4.5 mg/0.5 mL subcutaneous solution 4.5 mg, SubCutaneous, qWeek, # 4 EA, Refills(s) 1, Pharmacy: [facility] [id number], 161.5, cm, 06/29/24 7:50:00 EDT, Height/Length Dosing, 78.4, kg, 06/29/24 7:50:00 EDT, Weight Dosing Start Date: 07/19/24 Status: Ordered Quantity: 4.0 Unit: EA Repeat number: 2Start: 92-11-9106fwfjaw 4.5 mg by subcutaneous injection every weekTrulicity Pen 4.5 mg/0.5 mL subcutaneous solution 4.5 mg, SubCutaneous, qWeek, # 4 EA, Refills(s) 1, Pharmacy: [facility] [id number], 161.5, cm, 05/11/24 8:32:00 EST, Height/Length Dosing, 79.8, kg, 05/11/24 8:32:00 EST, Weight Dosing Start Date: 05/18/24 Status: Ordered Quantity: 4.0 Unit: EA Repeat number: 2Start: 73-49-7335hagiqj 4.5 mg by subcutaneous injection every weekTrulicity Pen 4.5 mg/0.5 mL subcutaneous solution 4.5 mg, SubCutaneous, qWeek, # 4 EA, Refills(s) 0, Pharmacy: [facility] [id number], 160, cm, 04/06/24 8:31:00 EST, Height/Length Dosing, 78.8, kg,04/06/24 8:31:00 EST, Weight Dosing Start Date: 04/06/24 Status: OrderedStart: 26-53-8362xwmtyw 3 mg by subcutaneous injection every weekTrulicity Pen 3 mg/0.5 mL subcutaneous solution 3 mg, SubCutaneous, qWeek, # 12 EA, Refills(s) 0, [facility] [id number], 160, cm, 10/04/23 8:29:00 EDT, Height/Length Dosing, 83, kg, 10/04/23 8:29:00 EDT, Weight Dosing Start Date: 10/04/23 Status: OrderedStart: 27-59-9222jbspwv 1.5 mg by subcutaneous injection every week Trulicity Pen 1.5 mg/0.5 mL subcutaneous solution 1.5 mg, SubCutaneous, qWeek, # 12 EA, Refills(s) 0, Pharmacy: [facility] #[id number], 157.5, cm, 04/05/23 7:03:00 EST, Height/Length Dosing, 88.1, kg, 04/05/23 7:03:00 EST, Weight Dosing Start Date: 04/21/23 Status: OrderedStart: 55-90-8021yxvbds 0.75 mg by subcutaneous injection every weekTrulicity Pen 0.75 mg/0.5 mL subcutaneous solution See Instructions, inject 0.75 milligrams subcutaneously every week, # 2 mL, Refills(s) 0, Pharmacy: [facility] #[id number], 157.5, cm, 12/14/22 6:58:00 EDT, Height/Length Dosing, 88.4, kg, 12/14/22 6:58:00 EDT, Weight Dosing Start Date: 03/22/23 Status: OrderedStart: 00-79-6383aqlkct 0.75 mg by subcutaneous injection every week Trulicity Pen 0.75 mg/0.5 mL subcutaneous solution 0.75 mg, SubCutaneous, qWeek, # 4 EA, Refills(s)0, Pharmacy: [facility] #[id number], 157.5, cm, 12/14/22 6:58:00 EDT, Height/Length Dosing, 88.4, kg, 12/14/22 6:58:00 EDT, Weight Dosing Start Date: 12/14/22 Status: OrderedDULoxetine 60 mg delayed release oral capsule (9 sources)Serotonin and Norepinephrine Reuptake InhibitorStart: 46-71-8662rbjp 1 capsule by mouth once dailyDuloxetine 60 mg capsule,delayed release(DR/EC) Active 60 MG PO Daily December 06, 2024 11:00pm Complies with drug therapy Start: 45-06-0781rhzd 1 capsule by mouth once dailyduloxetine 60 mg oral delayed release capsule See Instructions, TAKE 1 CAPSULE BY MOUTH DAILY, # 90cap(s), Refills(s) 0, Pharmacy: [facility] [id number], 161.5, cm, 06/29/24 7:50:00 EDT, Height/Length Dosing, 78.4, kg, 06/29/24 7:50:00 EDT, Weight Dosing Start Date: 08/21/24 Status: Ordered Quantity: 90.0 Unit: cap(s) Repeat number: 1Start: 84-15-8882yvjz 1 capsule by mouth once dailyCymbalta 60 mg oral delayed release capsule 60 mg = 1 cap(s), Oral, Daily, # 90 cap(s), Refills(s) 1, Pharmacy: [facility] [id number], 160, cm, 01/04/24 7:21:00 EDT, Height/Length Dosing, 78.7, kg, 01/04/24 7:21:00 EDT, Weight Dosing Start Date: 02/21/24 Status: Ordered Quantity: 90.0 Unit: cap(s) Repeat number: 2Start: 07-31-5642nuff 1 capsule by mouth once dailyCymbalta 60 mg oral delayed release capsule 60 mg = 1 cap(s), Oral, Daily, # 90 cap(s), Refills(s) 1, Pharmacy: [facility] #[id number], 160, cm, 07/05/23 9:08:00 EDT, Height/Length Dosing, 87.5, kg, 07/05/23 9:08:00 EDT, Weight Dosing Start Date: 07/05/23 Status: Orderedduloxetine 60 mg Cap-DR (3 sources)Start: 93-86-2660wjam 1 capsule by mouth once dailyduloxetine 60 mg Cap-DR = 1 cap(s), Oral, Daily, Refills(s) 0 Start Date: 07/31/22 Status: Ordered ferrous sulfate 325 mg oral tablet (2 sources)Start: 14-13-8487Uayrwtp Sulfate 325 mg (65 mg iron) tablet Active 325 MG PO Every 48 hours 45 January 18, 2025 12:00am Complies with drug therapyFreeStyle Kailey 2 Sensor (5 sources)Start: 83-96-7994OsthGcgoj Kailey 2 Sensor FreeStyle Kailey 2 Sensor, See Instructions, 6 EA, 5, Apply new sensor to upper back arm q 14days, [employer] [id number], Supply, 160, cm, 01/04/24 7:21:00 EDT, Height/Length Dosing, 78.7, kg, 01/04/24 7:21:00 EDT, Weight Dosing Start Date: 03/22/24 Status: Ordered Quantity: 6.0 Unit: EA Repeat number: 6Start: 22-52-4281MlpqZrsuv Kailey 2 Sensor FreeStyle Kailey 2 Sensor, See Instructions, 6 EA, 5, Apply new sensor to upper back arm q 14days, [employer] [id number], Supply, 160, cm, 01/04/24 7:21:00 EDT, Height/Length Dosing, 78.7, kg, 01/04/24 7:21:00 EDT, Weight Dosing Start Date: 03/22/24 Status: OrderedStart: 27-65-7816TldaPvhtz Kailey 2 Sensor FreeStyle Kailey 2 Sensor, See Instructions, 6 EA, 11, Apply new sensor to upper back arm q 14days, [employer] [id number], Supply, 160, cm, 09/13/23 7:24:00 EDT, Height/Length Dosing, 86, kg, 09/13/23 7:24:00 EDT, Weight Dosing Start Date: 09/23/23 Status: Orderedgabapentin 400 mg oral capsule (17 sources)Anti-epileptic AgentStart: 46-58-5129bjyj 1 capsule by mouth three times dailyGabapentin 400 mg capsule Active 400 MG PO Three times daily January 23, 2025 12:00am Complies with drug therapyStart: 12-07-2024 End: 05-67-4473xeju 1 capsule by mouth three times dailyGabapentin 300 mg capsule Discontinued 300 MG PO Three times daily December 06, 2024 11:00pm January 23, 2025 8:28amStart: 12-07-2024 End: 37-16-6265ziez 1 capsule by mouth once dailyGabapentin 400 mg capsule Discontinued 400 MG PO Daily December 06, 2024 11:00pm November 9:48amStart: 59-15-4547eufo 1 capsule by mouth three times dailygabapentin 400 mg Cap See Instructions, TAKE 1 CAPSULE BY MOUTH 3 TIMES A DAY, # 270 cap(s), Refills(s) 0, Pharmacy: [facility] [id number], 161.5, cm, 06/29/24 7:50:00 EDT, Height/Length Dosing, 78.4, kg, 06/29/24 7:50:00 EDT, Weight Dosing Start Date: 08/21/24 Status: Ordered Quantity: 270.0 Unit: cap(s) Repeat number: 1Start: 60-43-5829smso 1 capsule by mouth three times dailygabapentin 400 mg Cap 400 mg = 1 cap(s), Oral, TID, # 270 cap(s), Refills(s) 0, Pharmacy: [facility] [id number], 160, cm, 04/06/24 8:31:00 EST, Height/Length Dosing, 78.8, kg, 04/06/24 8:31:00 EST, Weight Dosing Start Date: 04/06/24 Status: Ordered Quantity: 270.0 Unit: cap(s) Repeat number: 1Start: 21-85-0666qfkp 1 capsule by mouth three times dailygabapentin 400 mg Cap 400 mg = 1 cap(s), Oral, TID, # 270 cap(s), Refills(s) 0, Pharmacy: [facility] [id number], 160, cm, 01/04/24 7:21:00 EDT, Height/Length Dosing, 78.7, kg, 01/04/24 7:21:00 EDT, Weight Dosing Start Date: 01/04/24 Status: OrderedStart: 24-07-6787gvor 1 capsule by mouth three times dailygabapentin 400 mg Cap 400 mg = 1 cap(s), Oral, TID, # 270 cap(s), Refills(s) 0, Pharmacy: [facility] #[id number], 157.5, cm, 12/14/22 6:58:00 EDT, Height/Length Dosing, 88.4, kg, 12/14/22 6:58:00 EDT, Weight Dosing Start Date: 12/28/22 Status: OrderedStart: 46-90-1615zqhr 1 capsule by mouth three times dailygabapentin 400 mg Cap 400 mg = 1 cap(s), Oral, TID, Refills(s) 0 Start Date: 07/22/22 Status: Orderedglimepiride 4 mg oral tablet (7 sources)SulfonylureaStart: 96-58-9112vqeh 1 tablet by mouth twice daily Glimepiride 4 mg tablet Active 4 MG PO Twice daily December 06, 2024 11:00pm Complies with drug therapyStart: 94-48-4843qgjq 1 tablet by mouth twice daily Amaryl 4 mg Tab 4 mg = 1 tab(s), Oral, BID, Refills(s) 0 Start Date: 07/22/22 Status: Ordered3 ml insulin glargine 100 unt/ml pen injector (17 sources)Insulin AnalogStart: 43-61-0168Qvfflkj Glargine (Basaglar Kwikpen U- 100 Insulin) 100 unit/mL (3 mL) insulin pen Active 20 UNIT SUBCUT Twice daily 36 90 0 January 23, 2025 8:50am Type 2 diabetes mellitus with diabetic chronic kidney disease Type 2 diabetes mellitus with diabetic chronic kidney disease Complies with drug therapyStart: 12-07-2024 End: 02-95-3805Jxpajpt Glargine (Basaglar Kwikpen U-100 Insulin) 100 unit/mL (3 mL) insulin pen Discontinued 15 UNIT SUBCUT Twice daily December 07, 2024 9:49am January 23, 2025 8:51amStart: 12-07-2024 End: 76-88-7461zrhwzt 10 [IU] by subcutaneous injection once daily in the eveningInsulin Glargine (Basaglar Kwikpen U-100 Insulin) 100 unit/mL (3 mL) insulin pen Discontinued 10 UNIT SUBCUT Every evening December 06, 2024 11:00pm December 07, 2024 9:52amStart: 05-83-8000Cjyqhvtt KwikPen 100 units/mL subcutaneous solution See Instructions, inject 15 units subcutaneously twice a day, # 54 mL, Refills(s) 1, Pharmacy: [facility] [id number], 160, cm, 01/04/24 7:21:00 EDT, Height/Length Dosing, 78.7, kg, 01/04/24 7:21:00 EDT, Weight Dosing Start Date: 03/22/24 Status: Ordered Quantity: 54.0 Unit: mL Repeat number: 2Start: 90-38-8608Nlyhpuoc KwikPen 100 units/mL subcutaneous solution See Instructions, inject 15 units subcutaneously twice a day, # 54 mL, Refills(s) 0, Pharmacy: [facility] #[id number], 160, cm, 09/13/23 7:24:00 EDT, Heigh t/Length Dosing, 86, kg, 09/13/23 7:24:00 EDT, Weight Dosing Start Date: 09/15/23 Status: OrderedStart: 97-62-1050kphuaw 30 [IU] by subcutaneous injection twice dailyLantus 100 units/mL Injection-Insulin See Instructions, 30 unit(s) SubCutaneous BID, Refills(s) 0 Start Date: 07/22/22 Status: OrderedStart: 29-08-8864roaarp 27 [IU] by subcutaneous injection twice dailyLantus 100 units/mL Injection-Insulin 27 unit(s), SubCutaneous, BID, Refills(s) 0 Start Date: 07/22/22 Status: Teqepvp19 hr isosorbide mononitrate 30 mg extended release oral tablet (7 sources)Nitrate VasodilatorStart: 88-61-7027ufsp 1 tablet by mouth once daily, then take 1 tablet by mouth every twenty-four hoursIsosorbide Mononitrate 30 mg tablet extended release 24 hr Active 30 MG PO Daily December 06, 2024 11:00pm Complies with drug therapyStart: 18-94-8701kfjg 1 tablet by mouth once dailyisosorbide mononitrate 30 mg ER Tab 30 mg = 1 tab(s), Oral, Daily, Refills(s) 0 Start Date: 12/14/22Status: Orderedlisinopril 2.5 mg oral tablet (10 sources)Angiotensin Converting Enzyme InhibitorStart: 71-27-9779gdac 2 tablets by mouth once dailyLisinopril 2.5 mg tablet Active 5 MG PO Daily January 18, 2025 3:17pm Complies with drug therapyStart: 12-07-2024 End: 75-91-6479hkun 1 tablet by mouth once dailyLisinopril 2.5 mg tablet Discontinued 2.5 MG PO Daily December 06, 2024 11:00pm January 18, 2025 3:17pmStart: 71-97-6699lzot 1 tablet by mouth once dailylisinopril 2.5 mg Tab See Instructions, TAKE 1 TABLET BY MOUTH DAILY, # 90 tab(s), Refills(s) 0, Pha rmacy: [facility] [id number], 160, cm, 04/06/24 8:31:00 EST, Height/Length Dosing, 78.8, kg, 04/06/24 8:31:00 EST, Weight Dosing Start Date: 04/10/24 Status: Ordered Quantity: 90.0 Unit: tab(s) Repeat number: 1Start: 03-27-2024 take 1 tablet by mouth once dailylisinopril 2.5 mg Tab See Instructions, TAKE 1 TABLET BY MOUTH DAILY, # 90 tab(s), Refills(s) 0, Pharmacy: [facility] [id number], 160, cm, 01/04/24 7:21:00 EDT, Height/Length Dosing, 78.7, kg, 12/14 05/08 7:21:00 EDT, Weight Dosing Start Date: 03/27/24 Status: OrderedmetFORMIN hydrochloride 1000 mg / SITagliptin 50 mg oral tablet (16 sources)Biguanide, Dipeptidyl Peptidase 4 InhibitorStart: 14-75-3572iwku 1 tablet by mouth once dailySitagliptin Phos-Metformin (Janumet) 50-1,000 mg tablet Active 1 TAB PO Daily January 18, 2025 3:17pm Complies with drug therapyStart: 01-18-2025 End: 29-83-7179rybl 1 tablet by mouth onceSitagliptin Phos-Metformin (Janumet) 50-1,000 mg tablet Discontinued 1 TAB PO Once January 18, 2025 2:59pm January 18, 2025 3:18pmStart: 12-07-2024 End: 60-66-0706votk 1 tablet by mouth twice dailySitagliptin Phos-Metformin (Janumet) 50-1,000 mg tablet Discontinued 1 TAB PO Twice daily 2024 11:00pm January 18, 2025 3:00pmStart: 48-58-1570mghh 1 tablet by mouth twice dailyJanumet 50 mg/1000 mg oral tablet 1 tab(s), Oral, BID, 180 tab(s), Refill(s) 1, [facility] [id number], 160, cm, 04/06/24 8:31:00 EST, Height/Length Dosing, 78.8, kg, 04/06/24 8:31:00 EST, Weight Dosing Start Date: 04/10/24 Status: Ordered Quantity: 180.0 Unit: tab(s) Repeat number: 2Start: 33-48-2175Avhwhmt 50 mg/1000 mg oral tablet 1 tab(s), Oral, BID, 180 tab(s), Refill(s) 1, [facility] #[id number], 160, cm, 07/05/23 9:08:00 EDT, Height/Length Dosing, 87.5, kg, 07/05/23 9:08:00 EDT, Weight Dosing Start Date: 07/05/23 Status: OrderedStart: 85-48-3048sdru 1 tablet by mouth twice dailyJanumet 50 mg/1000 mg oral tablet 1 tab(s), Oral, BID, Refill(s) 0 Start Date: 07/22/22 Status: OrderedmethylPREDNISolone 4 mg oral tablet (1 source)CorticosteroidStart: 12-14-2022 End: 90-70-2961Mflfpg Dosepack 4 mg Tab = 1 packet(s), Oral, As Directed, as directed on package labeling, X 6 day(s), # 21 tab(s), Refills(s) 0, Pharmacy: [facility] #[id number], 157.5, cm, 12/14/22 6:58:00 EDT, Height/Length Dosing, 88.4, kg, 12/14/22 6:58:00 EDT, Weight Dosing Start Date: 12/14/22 Stop Date: 12/20/22 Status: OrderedMulti Vitamins oral tablet (8 sources)Start: 24-12-0937fafg 1 tablet by mouth once dailyMulti Vitamins oral tablet 1 tab(s), Oral, Daily, Refill(s) 0 Start Date: 07/31/22 Status: Ordered Repeat number: 1Start: 68-35-8291gijy 1 tablet by mouth once dailyMulti Vitamins oral tablet 1 tab(s), Oral, Daily, Refill(s) 0 Start Date: 07/31/22 Status: OrderedMultivitamin (Daily Multi-Vitamin) tablet (4 sources)Start: 70-68-9802jdqw 1 tablet by mouth once dailyMultivitamin (Daily Multi-Vitamin) tablet Active 1 TAB PO Daily December 06, 2024 11:00pm Complies with drug therapyStart: 86-94-7609enxq 1 tablet by mouth once daily Start: 70-00-3255vkpn 1 tablet by mouth once dailyMultivitamin (Daily Multi- Vitamin) tablet Active 1 TAB PO Daily December 07, 2024 12:00am Complies with drug therapytraMADol hydrochloride 50 mg oral tablet (5 sources)Opioid AgonistStart: 31-80-0789mivk 1 tablet by mouth every eight hours as neededTramadol 50 mg tablet Active 50 MG PO Every 8 hours as needed December 06, 2024 11:00pm Complieswith drug therapyStart: 04-73-4250quxb 1-2 tablets by mouth every eight hours as needed for paintraMADOL 50 mg Tab 1-2 tabs, Oral, q8hr, PRN Pain, # 24 tab(s), Refills(s) 0, Pharmacy: [facility] [id number], 161.5, cm, 08/31/24 11:23:00 EDT, Height/Length Dosing, 78.9, kg, 08/31/24 11:23:00 EDT, Weight Dosing Start Date: 08/31/24 Status: Ordered Quantity: 24.0 Unit: tab(s) Repeat number: 1 Indications: Low back pain, unspecified; Completed/Discontinued Medications MedicationDrug Class(es)DatesSig (Normalized)Sig (Original)alendronic acid 70 mg oral tablet (7 sources)BisphosphonateStart: 12-07-2024 End: 41-79-1645mhir 1 tablet by mouth every weekAlendronate 70 mg tablet Discontinued 70 MG PO every week December 06, 2024 11:00pm January 23, 2025 8:27amStart: 20-16-0525ifjgukljtht 70 mg Tab See Instructions, TAKE 1 TABLET BY MOUTH ONCE WEEKLY ON AN EMPTY STOMACH BEFORE BREAKFAST. REMAIN UPRIGHT FOR 30 MINUTES AND TAKE WITH 8 OUNCES OF WATER, # 12 tab(s), Refills(s)0, Pharmacy: [facility] [id number], 161.5, cm, 06/29/24 7:50:00 EDT, Height/Length Dosing, 78.4,kg, 06/29/24 7:50:00 EDT, Weight Dosing Start Date: 08/08/24 Status: Ordered Quantity: 12.0 Unit: tab(s) Repeat number: 1Start: 24-73-2863Duubdso 70 mg Tab 70 mg = 1 tab(s), Oral, q7day, # 12 tab(s), Refills(s) 0, Pharmacy: [facility] [id number], 161.5, cm, 05/11/24 8:32:00 EST, Height/Length Dosing, 79.8, kg, 05/11/24 8:32:00 EST, Weight Dosing Start Date: 05/11/24 Status: Ordered Quantity: 12.0 Unit: tab(s) Repeat number: 1 Indication: Age-related osteoporosis without current pathological fracture Problems Active Problems Problem ClassificationProblemDateDocumented DateEpisodic/ChronicCalculus of urinary tract (1 source)Personal history of urinary calculi; Translations: [PERSONAL HISTORY OF URINARY CALCULI]Onset: 85-93-1206AosojcxuMdydmw; other and unspecified primary (1 source)Personal history of malignant neoplasm of soft tissue; Translations: [PERSONAL HISTORY OF MALIGNANTNEOPLASM OF SOFT TISSUE]Onset: 63-98-2746Drhtxdpg Cardiac dysrhythmias (1 source)Tachycardia, unspecified; Translations: [TACHYCARDIA, UNSPECIFIED] Onset: 16-33-1417GtlbnvmkQchcyqr kidney disease (20 sources)Chronic kidney disease, unspecified; Translations: [Chronic kidney disease]Onset: 114331-70-3400LfajeahAyymxtx on above:linked HTN with CKD per OP CDI policy.Chronic kidney disease (1 source)Chronic kidney disease; Translations: [Chronic kidney disease, stage 3 unspecified]Onset: 92-77-3690Wpizfgg obstructive pulmonary disease and bronchiectasis (9 sources)Chronic obstructive pulmonary disease, unspecified; Translations: [Chronic obstructive lung disease]Onset: 119260-55-1565ZsijwtaFqtuhuxdvwd and hemorrhagic disorders (1 source)Thrombocytopenia, unspecified; Translations: [THROMBOCYTOPENIA, UNSPECIFIED]Onset: 34-65-8931TtqjysyPsqymtwi atherosclerosis and other heart disease (20 sources)Atherosclerotic heart disease of [place] coronary artery with unstable angina pectoris; Translations: [Preinfarction syndrome]Onset: 082472-89-7220PvqwztwStwsyxcd atherosclerosis and other heart disease (2 sources)Presence of aortocoronary bypass graft; Translations: [Presence of aortocoronary bypass graft]Onset: 10-98-4938TxhzznkmIdmrsdticb and other anemia (1 source)Iron deficiency anemia secondary to blood loss (chronic); Translations: [IRON DEFICIENCY ANEMIA SECONDARY TO BLOOD LOSS (CHRONIC)]Onset: 14-30-5804NhktirxLzbqgdmo mellitus with complications (20 sources)Type 2 diabetes mellitus with diabetic chronic kidney disease; Translations: [Disorder of kidney due to diabetes mellitus]Onset: 10-10-2021 ChronicDiabetes mellitus with complications (1 source)Type 2 diabetes mellitus with diabetic polyneuropathy; Translations: [TYPE 2 DIABETES MELLITUS WITHDIABETIC POLYNEUROPATHY]Onset: 29-03-6012Omuwykgo mellitus without complication (17 sources)Type 2 diabetes mellitus without complications; Translations: [Diabetes mellitus]Onset: 24-39-1976LfdvboeTejvcqf on above:linked DM with HLD per outpatient CDI policy.linked DM with CKD per OP CDI policy.Diabetes mellitus without complication (2 sources)Diabetes mellitus without complicationDisorders of lipid metabolism (20 sources)Hyperlipidemia, unspecified; Translations: [Hyperlipidemia]Onset: 489713-79-1646SmkcqjmXgcoebnde hypertension (12 sources)Essential (primary) hypertension; Translations: [Essential hypertension]Onset: 189481-98-0787AsfkwopSqwua and electrolyte disorders (1 source)Acidosis; Translations: [ACIDOSIS]Onset: 84-56-7350Zqcrhrsa Genitourinary symptoms and ill-defined conditions (11 sources)Microalbuminuria; Translations: [Proteinuria, unspecified]Onset: 238890-09-9241UhyexonjTdabcvho; including migraine (7 sources)Ygrayzoi06-39-8815ZnzxgdggUccdkzvykdvd with complications and secondary hypertension (11 sources)Chronic kidney disease due to hypertension; Translations: [Hypertensive chronic kidney disease withstage 1 through stage 4 chronic kidney disease, or unspecified chronic kidney disease]Onset: ChronicMood disorders (13 sources)Depressive disorder; Translations: [Moderate major depression, single episode]87-36-6189UjmvgblJxnykhy on above:added per 09/30/2021 query response.Noninfectious gastroenteritis (1 source)Noninfective gastroenteritis and colitis, unspecified; Translations: [NONINFECTIVE GASTROENTERITIS AND COLITIS, UNSPECIFIED]Onset: 83-59-3151Kaueqzqm Nonspecific chest pain (5 sources)Chest pain, unspecified; Translations: [Other chest pain]Onset: 37-11-4865IitoeidtWnajeeqjfowx (3 sources)Wxdlrrqatujn72-52-4016IhrvgobVirur aftercare (2 sources)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; Translations: [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' 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 (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) USE OF ASPIRIN]Onset: 41-84-2827XwvlqkkxRvume aftercare (1 source)Other assisted (current) drug therapy; Translations: [OTH CARE HOME CURRENT DRUG THERAPY]Onset: 51-58-4512WbjgaynpVrkss aftercare (1 source)alf (current) use of insulin; Translations: [CARE HOME CURRENT USE OF INSULIN]Onset: 17-43-2569WsrpaxgeCuiih aftercare (1 source)alf (current) use of oral hypoglycemic drugs; Translations: [CARE HOME (CURRENT) USE OF ORAL HYPOGLYCEMIC DRUGS]Onset: 14-54-6521Vhmzc diseases of kidney and ureters (10 sources)Secondary hyperparathyroidism; Translations: [Secondary hyperparathyroidism of renal origin]82-78-4024KqpjmiaDnubo diseases of kidney and ureters (1 source)Secondary hyperparathyroidism of renal origin; Translations: [Secondary hyperparathyroidism of renal origin]Onset: 76-76-6161VolryrtGahtb ear and sense organ disorders (8 sources)Hearing rbzf69-34-3377FonpekoTbmhy ear and sense organ disorders (2 sources)Sensorineural hearing loss, bilateral; Translations: [Sensorineural hearing loss, bilateral]23-41-0591JltmnesAnbct fractures (1 source)Multiple fractures of ribs, left side, subsequent encounter for fracture with routine healing; Translations: [MULTIPLE FX OF RIBS, LEFT SIDE, SUBS FOR FX W ROUTN HEAL]Onset: 49-11-3511IrmxgavsHbpnz hematologic conditions (7 sources)Xztmwsrhhaab67-35-5454KskezxgiYdbez lower respiratory disease (1 source)Hypoxemia; Translations: [HYPOXEMIA]Onset: 88-93-6383CbvxyuftLpytu nervous system disorders (8 sources)Aozyhsohtkwlja32-80-7913VuucwyfRrgoq nutritional; endocrine; and metabolic disorders (11 sources)Body mass index 30+ - -47-3835SjoqoqqNyqyt upper respiratory infections (5 sources)Posterior iddmdjwfpe72-12-2142UbvxgzgeGnwliypum (except that caused by tuberculosis or sexually transmitted disease) (1 source)Pneumonia, unspecified organism; Translations: [PNEUMONIA, UNSPECIFIED ORGANISM]Onset: 32-61-1827RsparfwfKgqexiai codes; unclassified (1 source)Obstructive sleep apnea (adult) (pediatric); Translations: [OBSTRUCTIVE SLEEP APNEA (ADULT) (PEDIATRIC)]Onset: 99-25-9466GgzvmgjLlrlkvyp codes; unclassified (8 sources)Obstructive sleep apnea mrtxrpyc22-61-1368FedeucjQoldqswy codes; unclassified (1 source)Acquired absence of other specified parts of digestive tract; Translations: [ACQUIRED ABSENCE OF OTHER SPECIFIED PARTS OF DIGESTIVE TRACT] Onset: 40-74-6271PuyefridXehngokc codes; unclassified (1 source)Acquired absence of both cervix and uterus; Translations: [ACQUIRED ABSENCE OF BOTH CERVIX AND UTERUS]Onset: 25-24-8893MjyinajjKhvkjldd codes; unclassified (1 source)Family history of ischemic heart disease and other diseases of the circulatory system; Translations: [FAMILY HX OF ISCHEM HEART DIS AND OTH DIS OF THE CIRC SYS]Onset: 14-13-4492PfdwzmnyTjnngupt codes; unclassified (8 sources)Family history of cancer of frlje20-16-5282OihbboumIgpvpkhq codes; unclassified (3 sources)Smokes tobacco yhler02-72-0380PqzefvzqFssbqmq detachments; defects; vascular occlusion; and retinopathy (8 sources)Retinal -10-8157KymyyncRkuddhfzt and history of mental health and substance abuse codes (1 source)Rv--39kvyzoc80-76-9613AnwzwvnwSlyeglkafr (except in labor) (1 source)SepsisOnset: 90-43-3720HbrtqbmlAtckzaazrc (except in labor) (3 sources)Sepsis, unspecified organism; Translations: [SEPSIS, UNSPECIFIED ORGANISM]Onset: 32-56-6908Zengzneaqoh; intervertebral disc disorders; other back problems (8 sources)Idnryvwp13-77-5278CjtdqfsfWoiwwuozl-gpoghma disorders (11 sources)Nicotine dependence, cigarettes, uncomplicated; Translations: [Smoker]Onset: 516336-26-8756RyowdpqNvavotfeiqeu (13 sources)Patient encounter uyosrn40-46-6062Wyfmccifeksr (7 sources)Long-term current use of zhzuhud79-02-6308Njaqegu on above:Current Medication List includes Lantus. added per outpatient CDI policy. Past or Other Problems Problem ClassificationProblemDateDocumented DateEpisodic/ChronicOther screening for suspected conditions (not mental disorders or infectious disease) (1 source)Encounter for screening mammogram for malignant neoplasm of breast; Translations: [ENC SCR MAMMO MALIG NEOPLASM BREAST]Onset: 94-32-8204Tvopbrsc Residual codes; unclassified (1 source)Family history of malignant neoplasm of breast; Translations: [FAMILY HX MALIG NEOPLASM OF BREAST]Onset: 63-43-8862JurspbtwTicflewr codes; unclassified (1 source)Family history of malignant neoplasm of digestive organs; Translations: [FAM HX MALIG NEOPLASM DIGESTIV ORGN]Onset: 38-82-9037Vqnvmnpb Results Test NameValueInterpretationReference QuuluAgyhdbqwVgH6d HPLC (Bld) [Mass fraction]Ordered By: Marlena Carver on 66-05-6673IzD9k (Bld) [Mass fraction]8.1 %[facility] HospitalAlbumin [Mass/volume] in Serum or PlasmaOrdered By: Dereck Goodson on 41-74-7430Vbtcekr [Mass/Vol]3.2 g/dL 2.9-4.4FAvita Health System Bucyrus HospitalErythrocyte distribution width Auto (RBC) [Ratio]Ordered By: Dereck Goodson on 83-70-3965Wskjlmxposc distribution width (RBC) [Ratio]14.4 %11.0-15.0The Christ HospitalGlomerular filtration rate (GFR) estimation in non- AmericanOrdered By: Dereck Goodson on 34-95-0802QJZ/1.73 sq M.predicted among non-blacks MDRD (S/P/Bld) [Vol rate/Area]34 mL/min/{1.73_m2}Low>=60 mL/min/1.73m 2FAvita Health System Bucyrus HospitalHematocrit Auto (Bld) [Volume fraction]Ordered By: Dereck Goodson on 13-04-6718Tpizsrlfyy (Bld) [Volume fraction]34.7 %Low36.0-48.0[facility] HospitalHemoglobin [Mass/volume] in BloodOrdered By: Dereck Goodson on 68-58-3786Chbcmljbsr (Bld) [Mass/Vol]11.1 g/dLLow12.0-16.0[facility] HospitalIgA [Mass/volume] in Serum or PlasmaOrdered By: Dereck Hamzah on 59-65-9288NjF [Mass/Vol]277 mg/wX98-758CpsxhmqipThe Christ HospitalIgG [Mass/volume] in Serum or PlasmaOrdered By: Dereck Hamzah on 07-60-6627JzT [Mass/Vol]718 mg/xD276-0519HiziblslzThe Christ HospitalIgM [Mass/volume] in Serum or PlasmaOrdered By: Dereck Hamzah on 48-99-6425XiY [Mass/Vol]26 mg/dL 26-217The [facility] HospitalImmunofixation for UrineOrdered By: Dereck Goodson on 92-92-1301Aqzzrgilofhpob Immunofixation (U) [Interp]Comment.[facility] HospitalComment on above:No monoclonality detected.Performed at: [facility] [id number] Director: Luigi Perez PhD, Phone: [phone] light chains.kappa.free [Mass/volume] in SerumOrdered By: Dereck Goodson on 95-73-9226Zrnqchrhvvhzeu light chains.kappa.free (S) [Mass/Vol]52.4 mg/LAbnormal3.3-19.4FAvita Health System Bucyrus HospitalImmunoglobulin light chains.kappa.free/Immunoglobulin light chains.lambda.free [MassOrdered By: Dereck Hamzah on 29-68-0865Dxcwcmlazmvkre light chains.kappa.free/Immunoglobulin light chains.lambda.free (S) [Mass ratio] 1.050.26-1.65The [facility] HospitalComment on above:Performed at: [facility] [id number] Director: Luigi Perez PhD, Phone: [phone] light chains.lambda.free [Mass/volume] in Serum or PlasmaOrdered By: Dereck Goodson on 01-12-2025 Immunoglobulin light chains.lambda.free [Mass/Vol]50.0 mg/LAbnormal5.7-26.3 [facility] HospitalIron binding capacity [Mass/volume] in Serum or PlasmaOrdered By: Dereck Hamzah on 23-78-2636Qeyj binding capacity [Mass/Vol] 304.0 ug/dL250.0-450.0The [facility] HospitalIron saturation [Mass Fraction] in Serum or PlasmaOrdered By: Dereck Hamzah on 26-80-4988Frcr saturation [Mass fraction]9.5 %[facility] HospitalLaboratory - Chemistry and Chemistry - challengeOrdered By: Dereck Goodson on 83-52-1732Rxmlviu [Mass/Vol]3.1 g/dLLow3.4-5.0[facility] HospitalCalcium [Mass/Vol]9.3 mg/dL 8.5-10.1FAvita Health System Bucyrus HospitalChloride [Moles/Vol]104 mmol/L98-107 [facility] HospitalCO2 [Moles/Vol]26.3 mmol/L21.0-32.0[facility] HospitalCreatinine [Mass/Vol]1.53 mg/dLHigh0.55-1.02[facility] HospitalFerritin [Mass/Vol]23.0 ng/mL8.0-252.0[facility] HospitalGFR/1.73 sq M.predicted MDRD (S/P/Bld) [Vol rate/Area]41 mL/min/{1.73_m2}Low>=60 mL/min/1.73m 2FAvita Health System Bucyrus HospitalGlucose [Mass/Vol]314 mg/pEXwjm44-876XeodgfssqThe Christ HospitalIron [Mass/Vol] 29.0 ug/dLLow50.0-170.0[facility] HospitalMagnesium [Mass/Vol]1.9 mg/dL1.8-2.4FAvita Health System Bucyrus HospitalPotassium [Moles/Vol]4.3 mmol/L 3.5-5.1FOhioHealth Grove City Methodist Hospitalodium [Moles/Vol]139 mmol/H168-566 [facility] HospitalUrate [Mass/Vol]5.3 mg/dL2.6-6.0[facility] HospitalUrea nitrogen [Mass/Vol]22.0 mg/dLHigh7.0-18.0[facility] HospitalUrea nitrogen/Creatinine [Mass ratio]14.4 mg/mgThe Christ HospitalBilirubin Ql (U)NegativeNEGATIVEThe Christ HospitalGlucose (U) [Mass/Vol]mg/dLAbnormalNEGATIVEThe Christ HospitalKetones Ql (U)15 mg/dLAbnormalNEGKettering Health TroypH (U)5.5 [pH]5.0-9.0Tuscarawas Hospitalpecific gravity (U) [Rel density]1.0251.005-1.025The [facility] HospitalUrobilinogen Qn (U)0.2 {Lola'U}/dL0.2-1.0[facility] HospitalLaboratory - Specimen informationOrdered By: Dereck Goodson on 85-99-3855Ejfzqydrhn (U)CLEAR CLEARThe Christ HospitalColor (U)YELLOWYELLOWThe Christ HospitalLaboratory - UrinalysisOrdered By: Dereck Goodson on 01-12-2025 Leukocyte esterase Test strip Ql (U)NegativeNEGATIVEThe Christ HospitalMucus Ql (Urine sed)NONE SEENNONE SEENThe [facility] Hospital Nitrite Ql (U)NegativeNEGATIVEThe Christ HospitalProtein (U) [Mass/Vol]141.0 mg/dLHigh<=11.9[facility] HospitalProtein Ql (U) 100 mg/dLAbnormalNEG/TRACEThe Christ HospitalLeukocytes [#/volume] corrected for nucleated erythrocytes in Blood by Automated counOrdered By: Dereck Goodson on 42-30-1249SLH corrected for nucl RBC Auto (Bld) [#/Vol]7.2 10 3/uL4.0-11.0[facility] HospitalH Auto (RBC) [Entitic mass] Ordered By: Dereck Goodson on 87-67-3659ZTK (RBC) [Entitic mass]26.3 pgLow26.7-34.0 [facility] HospitalMCHC Auto (RBC) [Mass/Vol]Ordered By: Dereck Goodson on 10-00-9072OKUX (RBC) [Mass/Vol]32.0 g/dL29.9-35.2FAvita Health System Bucyrus HospitalMCV Auto (RBC) [Entitic vol]Ordered By: Dereck Goodson on 01-12-2025 MCV (RBC) [Entitic vol]82.2 fL81.0-99.0[facility] HospitalNo Panel InformationOrdered By: Dereck Goodson on 760532-Ctqrbuf Vitamin D Total34.8 ng/mLThe Christ HospitalComment on above:<20 ng/mL Vit D kroxqabhk38-<30 ng/mL Vit D nupfugskhedw79-533 ng/mL Vit D sufficient>100 ng/mL Potential ToxicityParathyroid Hormone (Intact)21 pg/aL55-32FxvszvhzaThe Christ HospitalComment on above:Performed at: - [address] [id number] Director: Luigi Perez PhD, Phone: [phone] Phosphorus Level3.6 mg/dL2.6-4.7FAvita Health System Bucyrus HospitalProtein Electrophoresis M-SpikeNot Observed g/dLNot ObservedThe Christ HospitalProtein Electrophoresis NoteComment.[facility] Comment on above:Protein electrophoresis scan will follow via computer,mail, or converter skimmer delivery.Urine BacteriaTRACE #/HPFAbnormalNONE SEENThe Christ HospitalUrine Occult BloodNegativeNEGATIVEThe Christ HospitalUrine Other CastsNONE SEEN #/LPFNONE [facility] Urine Other CrystalsNone Seen #/HPFNone [facility] Urine Random Wuvwkgftrq078.07 mg/dL20.00-300.00[facility] Urine RBC0-2 #/HPF0-2FAvita Health System Bucyrus HospitalUrine Squamous Epithelial CellsFEW #/LPFAbnormalNONE/RAREThe Christ HospitalUrine WBC2-5 #/HPFAbnormalNONE [facility] Charles HospitalPlatelet mean volume Auto (Bld) [Entitic vol]Ordered By: Dereck Goodson on 01-73-6321Txappeqa mean volume (Bld) [Entitic vol]9.1 fLLow9.5-13.5FAvita Health System Bucyrus HospitalPlatelets Auto (Bld) [#/Vol]Ordered By: Dereck Goodson on 40-00-6983Kuzxvyndb (Bld) [#/Vol] 221 10 3/eQ468-991FxyduuytnThe Christ HospitalProtein [Mass/volume] in Serum or PlasmaOrdered By: Dereck Hamzah on 07-88-4271Noyrajl [Mass/Vol]6.2 g/dL 6.0-8.5FAvita Health System Bucyrus HospitalRBC Auto (Bld) [#/Vol]Ordered By: Dereck Hamzah on 90-28-1369GCV (Bld) [#/Vol]4.22 10 6/uL4.20-5.40Tuscarawas Hospitalerum globulin measurement (mass/volume)Ordered By: Dereck Chavezdir on 92-70-0110Kpspxfpw (S) [Mass/Vol]3.0 g/dL2.2-3.9Tuscarawas Hospitalerum or plasma albumin/globulin mass ratioOrdered By: Dereck Leer on 66-87-4278Usswcqr/Globulin [Mass ratio]1.1 {ratio}0.7-1.7FOhioHealth Grove City Methodist Hospitalerum or plasma alpha 1 globulin measurement by electrophoresis (mass/volume)Ordered By: Dereck Goodson on 78-92-9155Krapy 1 globulin Elph [Mass/Vol]0.3 g/dL0.0-0.4FOhioHealth Grove City Methodist Hospitalerum or plasma alpha 2 globulin measurement by electrophoresis (mass/volume)Ordered By: Dereck Goodson on 48-09-3235Prumi 2 globulin Elph [Mass/Vol]1.0 g/dL0.4-1.0Tuscarawas Hospitalerum or plasma anion gap determinationOrdered By: Dereck Goodson on 01-83-5668Sxewj gap [Moles/Vol]13.0 mmol/LFOhioHealth Grove City Methodist Hospitalerum or plasma beta globulin measurement by electrophoresis (mass/volume)Ordered By: Dereck Goodson on 80-39-6371Izqb globulin Elph [Mass/Vol]1.1 g/dL0.7-1.3FOhioHealth Grove City Methodist Hospitalerum or plasma gamma globulin measurement by electrophoresis (mass/volume)Ordered By: Dereck Goodson on 64-25-5238Dbuoz globulin Elph [Mass/Vol]0.6 g/dL0.4-1.8T[facility]carawas Hospitalerum or plasma immunoelectrophoresis interpretationOrdered By: Dereck Goodson on 01-12-2025 Interpretation IEP [Interp]Comment.[facility] HospitalComment on above:No monoclonality detected.Urine protein/creatinine ratioOrdered By: Dereck Goodson on 65-10-9160Lefqias/Creatinine (U) [Ratio]0.74The [facility] HospitalUS renal BIon 30-28-3496DV renal BIFJ.W. [facility]BY [place] [address] Ultrasound Report Signed Patient: Pato Corral MR#: [id number] : 1960 Acct:[id number] Age/Sex: 64 / F ADM Date: 12/26/24 Loc: Room: Type: [facility] Attending Dr: Dereck Goodson MD Ordering Provider: Dereck Goodson MD Date of Service: 12/26/24 US/US renal BI: I25.10 - Atherosclerotic heart disease of [place] coronary... Copies to: Dereck Goodson MD BILATERAL [...] Jr., D.OMariia 12/26/2024 2:00 PM Dictation Location: [place] [address] Tech: Marlena Ivan Transcribed By: DIONY 12/26/24 1400 Dictated By: Júnior Yanez Jr, DO 12/26/24 1359 Signed By: 12/26/24 1400[facility] Physician Uihmf45qw 03-27-740673Tzyig to patient to advise patient of Parvin Ramírez CNP recommendation to increase her amlodipine to 10 mg daily. Patient verbalized understanding and agreed with planNormalUniUniversity Hospitals Cleveland Medical Center36Regarding PCP note from 12/07/2024: FOX Connolly MA Her BP was very high there. Recommend she increase her amlodipine to 10mg daily. Thank you Elsy TIPTON for her on 12/13. Can you try her again please? Thanks.OrangeburgUnChildren's Hospital for RehabilitationTelephoneon [id number] Pato Corral 1960 F Date Provider Department Center 12/20/2024 [id number]-ANJU MADDOX ROBERT Hare Family History Problem Relation Age of Onset Coronary artery disease Father Family Status - Relation Status Age at Mother Alive Father DeceasedNormalUniUniversity Hospitals Cleveland Medical Center36on 82-87-743495Hrf we see if she's seen' nephrology with [facility] or when her appt is and request a copy of their office note?[facility]burgUnChildren's Hospital for Rehabilitation Orders Onlyon 19-39-2582Kzbpth [id number] Pato Corral 1960 F Date Provider Department Center 11/29/2024 [id number], HISTORICAL BH CARD [facility] Family History Problem Relation Age of Onset Coronary artery disease Father Family Status - Relation Status Age at Mother Alive Father DeceasedNormalUniUniversity Hospitals Cleveland Medical CenterOffice Visiton 01-94-4029Xzbbzs-up [id number] Pato Corral Antwon 1960 F Date Provider Department Center 11/02/2024 RAJINDER ALVAREZ ROBERT [facility] Family History Problem Relation Age of Onset Coronary artery disease Father Family Status - Relation Status Age at Mother Alive Father Level of Service:20098 PA OFFICE/OUTPATIENT ESTABLISHED MOD MDM 30 MIN Reason for Visit and Comments: Coronary Artery Disease [187] Hypertension [690061] Hyperlipidemia [182]NormalKettering Health – Soin Medical CenterTelephoneon [id number] Pato Corral 1960 F Date Provider Department Center 11/02/2024 ELSY SERNA ROBERT Hare Family History Problem Relation Age of Onset Coronary artery disease Father Family Status - Relation Status Age at Mother Alive Father DeceasedNormalUniUniversity Hospitals Cleveland Medical CenterAmbulatory Visit Summary on 14-65-9432Zptvlarsyz Visit SummaryAmbulatory Visit Summary PATO CORRAL Love :1960 Visit Date:09/28/2024 Ambulatory Visit Instructions Your [...] AM EST With: JANET KEEN CNP Where: [address] [id number]- Wednesday2025 8:00 AM EST With: Where: [address] [address]- You Need to Schedule the Following Appointments Follow Up with JANET KEEN CNP, FAM When: Within 6 months Comments: Diabetes Where: [address] [place] [phone] Business (1) Medications What How Much When [...] for breast cancer Scree (more content not included)...[facility] Medicine Office/Clinic Noteon 24-53-3070Sfkopj Medicine Office/Clinic NoteFashriners children's Medicine Office/Clinic Note Chief Complaint 3m Diabetic Check up The patient presents for a follow-up on diabetes management and medication refills. [facility] Staff Pt presents today for 3m follow up. Patient is here for follow up on Diabetes. How often are you checking your blood sugars? _ What are your average readings? _145 Paresthesias, Ulcerations or sores? no Lisinopril, aspirin, statin therapy? Yes Lisinopril therapy. Foot Exam: 07/05/23 Eye Exam: 08/2023 Does have upcoming appt in November Last A1c: Hgb A1C %: 7.3 % [...] attributed to neuropathy. She has consulted a television and radio repairer in the past and received dietary recommendations, [...] JANET KEEN CNP, FAM Within 6 months [address] [place] [address] Business (1) Additional Instructions: Diabetes Patient Education Chronic Kidney Disease, Ad (more content not included)...[facility] HospitalComment on above:Result Comment: Electronically Signed By: JANET KEEN CNP\.br\Date and Time Signed: 09/28/24 10:56 EDTXR Spine Lumbosacral Minimum 4 Viewson 37-91-4779KJ Spine Lumbosacral Minimum 4 ViewsExam Date/Time: 09/04/2024 [...] César Castrejon DO Transcribed by: VILLA Technologist: PatrickSelect Medical Specialty Hospital - CincinnatiFashriners children's Medicine Office/Clinic Noteon 28-19-3950Zccemv Medicine Office/Clinic NoteFami Medicine Office/Clinic Note Chief Complaint bad kidney [...] Pain, # 24 tab(s), Refills(s) 0, Pharmacy: [facility] [id number], 161.5, cm, 08/31/24 11:23:00 EDT, Height/Length Dosing, [...] Urnls Dip Stick Auto w/o Microscopy POC 59517 3. Former smoker (Z87.891: Personal history of [...] Burger Within 2 to 4 weeks [address] [place] [address]- Business (2) Additional Instructions: Lumbar pain Patient Education Chronic Back Pain, Ddii-qc-Aqsd Problem List/Past Medical History Ongoing Back pain Benign hypertension with chronic kidney disease, stage III BMI 30.0-30.9,adult Chronic obstructive pulmonary disease Cigarette nicotine dependence Coronary artery disease Current every day smoker Diabetic nephropathy Essential hypertension Family history of colo (more content not included)...[facility] HospitalComment on above:Result Comment: Electronically Signed By: JANET KEEN CNP\Date and Time Signed: 08/31/24 12:05 EDTAmbulatory Visit Summaryon 77-73-5932Cwiptffurg Visit SummaryAmbulatory Visit Summary PATO CORRAL :1960 [...] physician if questions or concerns Misc Prescription (Topgueste 2 Sensor) Misc Prescription (Misc DME Prescription) [...] EDT With: Tao GTZ, Dandre Taylor Where: [address] [address] Wednesday2025 8:00 AM EST With: Where: [address] [address] Medications What How Much When Why Instructions [...] stage III BMI 30.0-30.9,adult (more content not included)...[facility] Medicine Office/Clinic Noteon 11-29-1022Sexszl Medicine Office/Clinic NoteFashriners children's Medicine Office/Clinic Note Chief Complaint 3m follow [...] Coronary artery disease under annual monitoring with patient ambassador. No angina or shortness of breath. - [...] artery disease (I25.10: Atherosclerotic heart disease of [place] coronary artery withoutangina pectoris) - Continue annual patient ambassador reviews. - Monitor cardiac medications. 5. Diabetic nephropathy (E11.21: Type 2 diabetes mellitus with diabetic nephropathy) - Will recheck at one year labs 6. Essential hypertension (I10: Essential (primary) hypertension) - Well controlled on meds. 7. Type 2 diabetes mellitus with hyperlipidemia (E11.69: Type 2 diabetes mellitus with other specified complication) - Blood glucose targets encouraged. - Lifestyle modifications reinforced. Ordered: A1c POC 25571 Body Mass Index (BMI) documented 3008F Current [...] Diet and exercise advised. (more content not included)...[facility] HospitalComment on above: Result Comment: Electronically Signed By: Tao GTZ, Dandre Taylor\.br\Date and Time Signed: 06/29/24 08:19 EDTCT Chest, Low Dose Screeningon 32-95-4842ZK Chest, Low Dose ScreeningExam Date/Time: 06/21/2024 16:57 [...] Diony Herrera MD Transcribed by: VILLA Technologist: ShaunMartin General Hospitalportillo [facility] BaltimoreMA Mamm Screen w/CAD if perf and 3D Bilon 59-32-4970CM Mamm Screen w/CAD if perf and 3D [...] IS VERY IMPORTANT TO YOUR HEALTH. THE [place] GUIDELINES RECOMMEND THAT WOMEN 40 [...] Burger FINAL REPORT Dictated: 06/02/2024 10:35 am Maddy GTZ, Tristen Moore Signed (Electronic Signature): 06/02/2024 10:35 am Signed by: Tristen Castañeda MD Transcribed by: VILLA Technologist: BUCK Assessment: BI-RADS Category 1-Negative Recommendation: Normal interval follow-upMercy Health [facility] Hospital Ambulatory Visit Summaryon 68-48-5325Xyqkgpgxib Visit SummaryAmbulatory Visit Summary PATO CORRAL :1960 [...] This Is Your Medications List Misc Prescription (Compass-EOSStAirbiquity Kailey 2 Sensor) Misc Prescription (Misc DME [...] AM EDT With: Dandre Burger MD Where: [address] [address]- Wednesday2025 8:00 AM EST With: Where: [address] [address]- You Need to Complete the Following CT Chest, Low Dose Screening, 05/11/24, Routine, Order for future visit, Transport Mode: Ambulatory, Reason: Screening, Yes, Yes, Yes, 1, 35, Yes, 0, [id number], No, No, Yes, Current every day smoker, last LDCT 06/17/2023 at [facility]. [facility] are pushing images to [facility]. Please schedule aft... MA Mamm Screen w/CAD if perf and 3D [place], 05/18/24, Routine, Order for Future Visit, Transport Mode:Ambulatory, Reason: Screening, Reason: Z12.31, No, No, No, Breast cancer screening by mammogram, pp_set_radiology_subspecialty, Required & Missing, [facility] Medications What How Much When Instructions Unchanged [...] history of colon ca (more content not included)...[facility] Medicine Office/Clinic Noteon 79-07-8548Kvhcry Medicine Office/Clinic NoteFashriners children's Medicine Office/Clinic Note Chief Complaint Subsequent Medicare [...] were given. Reviewed Medicare Prevention Services checklist. CDC-Falls Prevention and home safety screening reviewed. Patient denies any falls in last 12 months, voices no worry about falling. Exhibits no problems with sitting, standing or ambulation. Patient aware with keeping walk way area free of clutter to prevent tripping and/or falling. [place] Advance Directives reviewed. See #13. Patient denies [...] Mammogram ordered and has been scheduled with [facility] 05/18/2024. Pt has been advised no deodorant, sprays or lotions. Patient previously has had mammograms at [facility], images have been requested to be pushed to [facility]. 3. Diabetic nephropathy (E11.21: [...] which types of fo (more content not included)...[facility] HospitalComment on above: Result Comment: Electronically Signed By: JANET KEEN CNP\.br\Date and Time Signed: 05/11/24 10:34 EST\.br\Electronically Co-Signed By: Radha Claros\.br\Date and Time Co-Signed: 05/11/24 10:12ESTAmbulatory Visit Summaryon 89-70-6276Xasflgcsgt Visit SummaryAmbulatory Visit Summary PATO CORRAL Love :1960 Visit Date:04/06/2024 Ambulatory Visit Instructions Your [...] physician if questions or concerns Misc Prescription (Compass-EOSStyle Kailey 2 Sensor) Misc Prescription ([facility] DME Prescription) aspirin (aspirin 81 mg Oral [...] Appointments 2024 8:00 AM EST With: Where: [address] [id number]- 2024 8:15 AM EDT With: Dandre Burger MD Where: [address] [address]- You Need to Complete the Following HgbA1c, Blood, Routine collect, 04/06/24, Order for future visit, Lab Collect, Chronic obstructive pulmonary disease Diabetic nephropathy Kidney disease, chronic, stage III (moderate, EGFR 30-59 ml/min) Type 2 diabetes mellitus with hyperlipidemia Eliezer... Medications What How Much When Instructions Changed dulaglutide (Trulicity Pen 4.5 mg/ 0.5 mL subcutaneous solution) 4.5 Milligram SubcutaneousEvery week Pickup at [facility] [id number] Unchanged gabapentin (gabapentin 400 mg Cap) 1 Capsules By Mouth 3 times a day Pickup at [facility] [id number] Unchanged aspirin (aspirin 81 mg Oral EC [...] physician if questions or concerns Pharmacy Information [facility] [id number]: [address], [place] [phone] Allergies No Known Medication Allergies Problems Ongoing - Any problem that you are currently receiving treatment for. Back pain Benign hypertension (more content not included)...[facility] HospitalCHEMISTRYOrdered By: Marlena Ramirez on 98-95-4371DfO2i (Bld) [Mass fraction]7.3 %High<=5.9%[facility] ChemAutoSSFashriners children's Medicine Office/Clinic Noteon 57-09-9583Ngnxjg Medicine Office/Clinic NoteFashriners children's Medicine Office/Clinic Note Chief Complaint Concern about [...] Ordered: HgbA1c 5. 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 [...] qWeek, # 4 EA, Refills(s) 0, Pharmacy: [facility] [id number],160, cm, 04/06/24 8:31:00 EST, Height/Lengt (more content not included)...NormalParkview Health Montpelier HospitalComment on above:Result Comment: Electronically Signed By: Tao GTZ, Dandre Taylor\.br\Date and Time Signed: 04/06/24 08:48 WJRNizQ5zpw 25-23-6967ApF5b (Bld) [Mass fraction]7.3 %High<=5.9Parkview Health Montpelier HospitalComment on above:Performed By: #### [id number] #### [facility] [address], [place] [address]Wtbvurmhph Visit Summaryon 25-53-6381Vpqabselnj Visit Summary Ambulatory Visit Summary PATO CORRAL Love :1960 Visit Date:01/04/2024 Ambulatory Visit Instructions Your [...] EST With: Tao GTZ, Dandre Taylor Where: [address] [address]- 2024 8:00 AM EST With: Where: [address] [address]- Medications What How Much When Instructions Unchanged gabapentin (gabapentin 400 mg Cap) 1 Capsules By Mouth 3 times a day Pickup at [facility] [id number] Unchanged Misc Prescription (Misc DME Prescription) See instructions Droplet 32G x 1/ 4 needles. Use to inject insulin sub q twice a day Pickup at [facility] [id number] Unchanged aspirin (aspirin 81 mg Oral EC [...] physician if questions or concerns Pharmacy Information [facility] [id number]: [address], [place] [phone] Medications and Immunizations Administered Given Fluzone High-Dose [...] stage III (moderate, EGFR (more content not included)...NormalParkview Health Montpelier HospitalCHEMISTRYOrdered By: SYSTEM SYSTEM on 13-60-2248Tbktwog DL <= 20 mg/L (U) [Mass/Vol]19.0 mg/dLHigh0.0 - 1.9 mg/dL Remisol ChemAlbumin [Mass/Vol]4.1 g/dLNormal3.3 - 5.0 gm/dLRemisol Chem Albumin/Globulin [Mass ratio]1.5 {ratio}Normal1.1 - 2.2Remisol ChemALP [Catalytic activity/Vol]71 [iU]/iZurmvf51 - 98 Int._Unit/LRemisol ChemALT No additional P-5'-P [Catalytic activity/Vol]19 [iU]/dNormal6 - 46 Int._Unit/L Remisol ChemAnion gap [Moles/Vol]12 mmol/LNormal6 - 16 mEq/LRemisol ChemAST [Catalytic activity/Vol]17 [iU]/dNormal5 - 43 Int._Unit/LRemisol ChemBilirubin [Mass/Vol]0.5 mg/dLNormal0.0 - 1.1 mg/dLRemisol ChemCalcium [Mass/Vol]9.9 mg/dL Normal8.9 - 11.1 mg/dLRemisol ChemChloride [Moles/Vol]106 mmol/LLlyqzj584 - 111 mmol/LRemisol ChemCholesterol [Mass/Vol]117 mg/vQAng323 - 200 mg/dLRemisol Chem Cholesterol in HDL [Mass/Vol]36 mg/dLInvalid Interpretation CodeRemisol Chem Comment on above:Result Comment: '>= 60 LOW RISK' '<= 40 HIGH RISK'Cholesterol in LDL [Mass/Vol]47 mg/dLNormal<=129mg/dLRemisol ChemCholesterol in VLDL [Mass/Vol]53 mg/dLHigh7 - 40 mg/dLRemisol ChemCO2 [Moles/Vol]27 mmol/ZWwofec16 - 31 mmol/LRemisol ChemCreatinine [Mass/Vol]1.3 mg/dLNormal0.5 - 1.3 mg/dLRemisol KmlggLNZ85 mL/min/1.73 m2Low>=59mL/min/1.73 m2 Remisol ChemGlobulin (S) [Mass/Vol]2.7 g/dLNormal1.4 - 4.0 gm/dLRemisol Chem Glucose [Mass/Vol]137 mg/yEIczpon60 - 199 mg/dLRemisol ChemPotassium [Moles/Vol] 4.6 mmol/LNormal3.5 - 5.3 mmol/LRemisol ChemProtein [Mass/Vol]6.8 g/dLNormal6.0 - 7.8 gm/dLRemisol ChemSodium [Moles/Vol]140 mmol/FRjffjr591 - 145 mmol/LRemisol ChemTriglyceride [Mass/Vol]266 mg/dLHigh<=149mg/dLRemisol ChemUrea nitrogen [Mass/Vol]21 mg/dLNormal5 - 21 mg/dLRemisol ChemUrea nitrogen/Creatinine [Mass ratio]16 mg/vrOpvljj17 - 20Remisol ChemCHEMISTRYOrdered By: Marlena Ramirez on 02-10-3982FyI3p (Bld) [Mass fraction]7.3 %High<=5.9%[facility] ChemAutoSSFamily Medicine Office/Clinic Noteon 02-37-2749Djcuxq Medicine Office/Clinic NoteFashriners children's Medicine Office/Clinic Note HPI Staff Anaya is a 63 year old female presenting [...] HgbA1c Influenza immunization administer (more content not included)...[facility] HospitalComment on above:Result Comment: Electronically Signed By: Tao GTZ, Dandre Solano.br\Date and Time Signed: 01/04/24 07:43 EDTHEMATOLOGYOrdered By: SYSTEM SYSTEM on 65-62-3309Dcnevycrw/100 WBC (Bld)0.5 %Normal0.0 - 2.0 % Remisol HemeBasophils/Leukocytes Auto (Bld) [Pure # fraction]0.1 E9/LNormal0.0 - 0.2 E9/LRemisol HemeEosinophils (Bld) [#/Vol]0.5 E9/LNormal0.0 - 0.5 E9/LRemisol HemeEosinophils/100 WBC (Bld)4.2 %Normal0.0 - 8.0 %Remisol HemeErythrocyte distribution width (RBC) [Ratio]17.0 %High10.9 - 14.2 %Remisol HemeHematocrit (Bld) [Volume fraction]37.0 %Gfcroh95.0 - 46.0 %Remisol HemeHemoglobin (Bld) [Mass/Vol]12.2 g/iBVrtzsw58.0 - 16.0 gm/dLRemisol HemeLymphocytes (Bld) [#/Vol] 2.7 E9/LNormal1.0 - 4.0 E9/LRemisol HemeLymphocytes/100 WBC (Bld)23.7 %Normal 14.0 - 50.0 %Remisol HemeMCH (RBC) [Entitic mass]26.1 pgLow27.0 - 34.0 pgRemisol HemeMCHC (RBC) [Mass/Vol]33.0 g/zGGzbhmq47.4 - 36.0 gm/dLRemisol HemeMCV (RBC) [Entitic vol]79.3 fLLow80.0 - 100.0 fLRemisol HemeMonocytes (Bld) [#/Vol]0.8 E9/LNormal0.2 - 1.0 E9/LRemisol HemeMonocytes/100 WBC (Bld)7.1 %Normal4.0 - 14.0 %Remisol HemeNeutrophils (Bld) [#/Vol]7.4 E9/LNormal2.0 - 7.5 E9/LRemisol Heme Neutrophils/100 WBC (Bld)64.5 %Vcaxhp87.0 - 75.0 %Remisol HemePlatelet mean volume (Bld) [Entitic vol]7.5 fLNormal6.4 - 10.8 fLRemisol HemePlatelets (Bld) [#/Vol]285.0 E9/BIbsuku307.0 - 500.0 E9/LRemisol HemeRBC (Bld) [#/Vol]4.7 E12/L Normal4.3 - 5.9 E12/LRemisol HemeWBC corrected for nucl RBC Auto (Bld) [#/Vol] 11.5 E9/LHigh4.0 - 11.0 E9/LRemisol LdnhKjuX2kdb 85-56-8894VpR0v (Bld) [Mass fraction]7.3 %High<=5.9Park[facility] Health Montpelier HospitalComment on above:Performed By: #### [id number] #### [facility] [address], [place] [address]Pchobo Medicine Office/Clinic Noteon 04-64-2011Crbsmn Medicine Office/Clinic NoteFashriners children's Medicine Office/Clinic Note HPI Staff Pato is [...] qWeek, # 12 EA, Refills(s) 0, Pharmacy: [facility] [id number], 160, cm, 10/04/23 8:29:00 EDT, Height/Length Dosing, [...] 12/28/2022 Given influenza virus (more content not included)...[facility] Comment on above:Result Comment: Electronically Signed By: Dandre Burger MD\.br\Date and Time Signed: 10/05/23 08:21 EDTPre-Visit Planningon 10-03-2023 Pre-Visit PlanningPre-Visit Planning From: Krupa Olivera To: Dandre Burger MD; Sent: 10/01/2023 14:28:53 EDT Subject: Pre-Visit Planning Due Date/Time: 10/01/2023 14:28:00 EDT Caller Name: PATO CORRAL; Caller Number: Hailey , Miquel Mi Dr. Burger. During a pre-visit planning chart [...] feel free to contact me at extension [phone]. Thank you! Krupa Olivera LPN From: Dandre Burger MD To: Krupa Olivera; Sent: 10/03/2023 12:30:22 EDT Subject: RE: Pre-Visit Planning Caller Name: PATO CORRAL; Caller Number: Hailey , Miquel Major depressive disorder, single episode, moderate. Please [id number] [facility] CenterInterdisciplinary Note - Social Workeron 06-34-7080Hkulpggxygfdcqkyl Note - Cloth Hand Interdisciplinary Note - Cloth Hand Consult for positive depression screen received. SW made a tc to patient and left a message for herwith SW's contact information should she wish to discuss concerns and/or needed resources. SW will remain available.[facility] HospitalAmbulatory Visit Summaryon 34-62-2777Egvsnvrgqs Visit Summary Ambulatory Visit Summary PATO CORRAL [...] physician if questions or concerns Misc Prescription (FreeCell Gate USAyle Kailey 2 Sensor) amlodipine (amLODIPine 5 mg [...] EDT With: Tao GTZ, Dandre Taylor Where: [place] [id number]- \.br\ Medications\.br\ What How Much When Why Instructions\.br\ Changed dulaglutide (Trulicity Pen 3 mg/ 0.5 mL subcutaneous solution) 3 Milligram Subcutaneous Every week Pickup at [facility] [id number]\.br\ Unchanged amlodipine (amLODIPine5 mg Tab) 1 Tablets [...] if questions or concerns \.br\ Pharmacy Information\.br\ [facility] [id number]: [address], [place] [phone]\.br\ Allergies\.br\ No Known Medication Allergies\.br\ Problems\.br\ Ongoing [...] for choosing us for your care.\.br\ \.br\Otf [facility] Medicine Office/Clinic Noteon 55-71-5047Ipehwd Medicine Office/Clinic NoteFramingham Union Hospital Medicine Office/Clinic Note HPI Staff Pato is [...] qWeek, # 12 EA, Refills(s) 1, Pharmacy: [facility] [id number], 160, cm, 09/13/23 7:24:00 EDT, Height/Length Dosing, [...] release capsule, 60 mg= (more content not included)...[facility] HospitalComment on above:Result Comment: Electronically Signed By: Tao GTZ, Dandre Taylor\.br\Date and Time Signed: 09/13/23 07:54 EDTAmbulatory Visit Summaryon 77-76-1316Omfeeicoti Visit Summary PATO CORRAL :1960 Visit Date:08/27/2023 Ambulatory Visit Instructions Your Diagnosis Papular rash BMI 33.0-33.9,adult Former smoker Your Care Team Attending Physician - JANET KEEN CNP Primary Care Physician - Dandre Burger MD This Is Your Medications List [facility] Prescription (FreeStyle Kailye 2 Sensor) amlodipine (amLODIPine 5 mg Tab) [...] EDT With: Tao GTZ, Dandre Taylor Where: [facility] [id number] [place] [id number]- \.br\ Medications\.br\ What How Much When Why Instructions\.br\ New clobetasol topical (Clobetasol (Eqv-Temovate E) 0.05% topical cream) 1 Application Topical 2 times a day Papular rash Refills: 1 Pickup at [facility] #[id number]\.br\ Unchanged amlodipine (amLODIPine 5 mg Tab) 1 [...] Mouth Every day\.br\ Pharmacy Information\.br\ [facility][id number]: [address] [place], [place] [phone]\.br\ Allergies\.br\ No Known Medication Allergies\.br\ Problems\.br\ Ongoing [...] for choosing us for your care.\.br\ \.br\Otf [facility] Medicine Office/Clinic Noteon 13-85-7858Settgs Medicine Office/Clinic NoteHPI Staff Pato is a [...] BID, 15 gm, Refill(s) 1, [facility] #[id number], 160, cm, 08/27/23 9:43:00 EDT, Height/Length Dosing, [...] Oral, TID isosorbide mon (more content not included)...[facility] Comment on above:Result Comment: Electronically Signed By: JANET KEEN CNP\.br\Date and Time Signed: 08/27/23 15:10 EDTPre-Visit Planningon 08-27-2023 Pre-Visit Planning From: Krupa Olivera To: JANET KEEN CNP; Sent: 08/26/2023 12:59:06 EDT Subject: Pre-Visit Planning Due Date/Time: 08/26/2023 12:59:00 EDT Caller Name: PATO CORRAL; Caller Number: , M Александр Man. During a pre-visit [...] please feel free to contact me at [phone]. Thank you! Krupa Olivera LPN From: JANET KEEN CNP To: Krupa Olivera; Sent: 08/27/2023 10:25:44 EDT Subject: RE: Pre-Visit Planning Caller Name: ELLISPATO MONTENEGRO; Caller Number: H , M Please have the patient's pcp address at her next appointment. I saw her for an acute visit [id number] [facility] CenterPre-Visit Planning From: Krupa Olivera To: JAENT KEEN CNP; Sent: 08/26/2023 13:07:11 EDT Subject: Pre-Visit Planning Due Date/Time: 08/26/2023 13:07:00 EDT Caller Name: ELLISPATO MONTENEGRO; Caller Number: H , M Александр Man. [...] feel free to contact me at extension [phone]. Thank you! Krupa Olivera LPN From: JANET KEEN CNP To: Krupa Olivera; Sent: 08/27/2023 10:25:31 EDT Subject: RE: Pre-Visit Planning Caller Name: MONALISA CORRALSA Love; Caller Number: , Please have the patient's pcp address at her next appointment. I saw her for an acute visit [id number] [facility] CenterAmbulatory Visit Summaryon 40-57-3007Wuyqhwjpos Visit Summary PATO CORRAL :1960 Visit Date:07/05/2023 [...] Follow-Up Appointments Wednesday 8:00 AM EDT With: Dandre Burger MD Where: [facility] [place] [phone]- \.br\ Medications\.br\ What How Much When Instructions\.br\ Changed buPROPion (Wellbutrin SR 150 mg Tab-ER) 1 Tablets By Mouth Every day [facility] #[id number]\.br\ Changed duloxetine (Cymbalta 60 mg oral delayed release capsule) 1 CapsulesBy Mouth Every day Pickup at [facility] #[id number]\.br\ Unchanged gabapentin (gabapentin 400 mg Cap) 1 Capsules By Mouth 3 times a day Pickup at [facility] #[id number]\.br\ Unchanged metformin-sitagliptin (Janumet 50 mg/ 1000 mg oral tablet) 1 Tablets By Mouth 2 times a day Pickup at [facility] #[id number]\.br\ Unchanged amlodipine (amLODIPine 5 mg Tab) 1 [...] or concerns \.br\ Pharmacy Information\.br\ [facility] #[id number]: [address], [place] [phone]\.br\ \.br\ What How Much When Comments\.br\ Stop [...] you for choosing us for your care.\.br\ \.br\[facility] Medicine Office/Clinic Noteon 83-88-8247Nljybv Medicine Office/Clinic NoteHPI Staff Pato is a [...] Recent) 3075F 5. Long-term insulin use (Z79.4: alf (current) use of insulin) - Basaglar - [...] 80-89 mm Hg 307 (more content not included)...[facility] HospitalComment on above:Result Comment: Electronically Signed By: Tao GTZ, Dandre Solano.br\Date and Time Signed: 07/05/23 09:[address] - [address] Reporton 82-23-8802DMO - CT Report [id number]#1.00TIFOhioHealth Shelby HospitalPre-Certification Formon 73-34-9273Euq-Certification Form [id number]#1.00TIFFMercy Health Perrysburg HospitalDexa Scanson 49-32-0624Zdrg Scans [id number]#1.00TIFOhioHealth Shelby HospitalDexa Scanson 97-80-0928Rnhz Scans [id number]#1.00TIFOhioHealth Shelby HospitalCHEMISTRYOrdered By: Marlena Tse on 71-72-4294LwI0s (Bld) [Mass fraction]7.2 %High<=5.9%[facility] ChemAutoSSCHEMISTRYOrdered By: Edwin Sloan on 49-37-8832Wrxhzql DL <= 20 mg/L (U) [Mass/Vol]61.6 microgram/mLHigh0.0 - 19.0 mcg/mLSURGICAL [facility] RemisolAlbumin Elph (U) [Mass fraction]86.6 mg/dLInvalid Interpretation CodeSURGICAL HOSPITAL OF [facility] RemisolComment on above:Interpretive Data: The reference range and other method performance specifications have not been established for this test; results should be integrated into the clinical context for interpretation.Creatinine (U) [Mass/Vol]214.9 mg/dLInvalid Interpretation Code [facility] RemisolComment on above:Interpretive Data: The reference range and other method performance specifications have not been established for this test; results should be integrated into the clinical context for interpretation.U Prot/Creat Kirfk455.00 mg/gm CrHigh0.00 - 200.00 mg/gm CrFC RemisolCHEMISTRY Ordered By: SYSTEM SYSTEM on 75-20-5791Pwnhkot [Mass/Vol]3.6 g/dLNormal3.3 - 5.0 gm/dLSURGICAL [facility] RemisolAlbumin/Globulin [Mass ratio]1.0 {ratio}Low1.1 - 2.2FTM RemisolALP [Catalytic activity/Vol]81 [iU]/bUmpvau57 - 98 Int._Unit/LFTMC RemisolALT No additional P-5'-P [Catalytic activity/Vol]28 [iU]/dNormal6 - 46 Int._Unit/LFTMC RemisolAnion gap [Moles/Vol]11 mmol/LNormal6 - 16 mEq/LFTMC RemisolAST [Catalytic activity/Vol]25 [iU]/dNormal5 - 43 Int._Unit/LFTMC Remisol Bilirubin [Mass/Vol]0.3 mg/dLNormal0.0 - 1.1 mg/dLSURGICAL [facility] RemisolCalcium [Mass/Vol] 9.2 mg/dLNormal8.9 - 11.1 mg/dLSURGICAL [facility] RemisolChloride [Moles/Vol]110 mmol/LNormal 101 - 111 mmol/LFTMC RemisolCholesterol [Mass/Vol]96 mg/wMBkp850 - 200 mg/dLFT RemisolCholesterol in HDL [Mass/Vol]36 mg/dLInvalid Interpretation CodeSURGICAL HOSPITAL [facility] RemisolComment on above:Interpretive Data: HDL > or equal to 60 mg/dL: Low cardiovascular risk HDL < 40 mg/dL : High cardiovascular riskCholesterol in LDL [Mass/Vol]30 mg/dL Normal<=129mg/dLSURGICAL HOSP[facility] RemisolCholesterol in VLDL [Mass/Vol]47 mg/dLHigh7 - 40 mg/dLSURGICAL HOS[facility] RemisolCO2 [Moles/Vol]23 mmol/AQfiydt79 - 31 mmol/LFTMC Remisol Creatinine [Mass/Vol]1.4 mg/dLHigh0.5 - 1.3 mg/dLSURGICAL [facility] RemisolGFR/1.73 sq M.predicted among non-blacks MDRD (S/P/Bld) [Vol rate/Area]42 mL/min/1.73 m2Low >=59mL/min/1.73 m2S[facility] Chem SComment on above:Interpretive Data: Chronic kidney disease could be indicated at eGFR's of less than 60 mL/min/1.73m2. Kidney failure is indicated at less than 15 mL/min/1.73m2.Globulin (S) [Mass/Vol]3.6 g/dLNormal1.4 - 4.0 gm/dLFTMC RemisolGlucose [Mass/Vol]167 mg/bWCpyrtg82 - 199 mg/dLFTMC RemisolComment on above:Interpretive Data: If this glucose result represents a fasting glucose, interpretation should referto the following reference range: 55-99 mg/dLPotassium [Moles/Vol]4.7 mmol/LNormal3.5 - 5.3 mmol/LFTMC RemisolProtein [Mass/Vol]7.2 g/dLNormal6.0 - 7.8 gm/dLFTMC Remisol Sodium [Moles/Vol]139 mmol/NJqewsa435 - 145 mmol/LFTMC RemisolTriglyceride [Mass/Vol]233 mg/dLHigh<=149mg/dLFT RemisolTSH Qn3.07 m[IU]/LNormal0.34 - 5.60 mcIU/mLFTMC RemisolUrea nitrogen [Mass/Vol]22 mg/dLHigh5 - 21 mg/dLFTMC Remisol Urea nitrogen/Creatinine [Mass ratio]16 mg/qnJvppjw83 - 20FTMC RemisolCHEMISTRY Ordered By: Leigh Magana on 54-26-9559SpV2n (Bld) [Mass fraction]9.0 %High <=5.9%[facility] ChemAutoSSHEMATOLOGYOrdered By: SYSTEM SYSTEM on 12-14-2022 Basophils/100 WBC (Bld)0.6 %Normal0.0 - 2.0 %[facility] HemeAutoSSBasophils/Leukocytes Auto (Bld) [Pure # fraction]0.1 E9/LNormal0.0 - 0.2 E9/LFTMC HemeAutoSS Eosinophils/100 WBC (Bld)3.2 %Normal0.0 - 8.0 %[facility] HemeAutoSS Eosinophils/Leukocytes Auto (Bld) [Pure # fraction]0.3 E9/LNormal0.0 - 0.5 E9/L [facility] HemeAutoSSLymphocytes/100 WBC (Bld)28.8 %Xwmxkn16.0 - 50.0 %[facility] HemeAutoSS Lymphocytes/Leukocytes Auto (Bld) [Pure # fraction]2.8 E9/LNormal1.0 - 4.0 E9/L [facility] HemeAutoSSMonocytes/100 WBC (Bld)7.4 %Normal4.0 - 14.0 %[facility] HemeAutoSS Monocytes/Leukocytes Auto (Bld) [Pure # fraction]0.7 E9/LNormal0.2 - 1.0 E9/L [facility] HemeAutoSSNeutrophils/100 WBC (Bld)60.0 %Nqemtf19.0 - 75.0 %FTMC HemeAutoSS Neutrophils/Leukocytes Auto (Bld) [Pure # fraction]5.9 E9/LNormal2.0 - 7.5 E9/L [facility] HemeAutoSSHEMATOLOGYOrdered By: Lizbet Almeida on 80-29-4395Cvvhqmzldvx distribution width (RBC) [Ratio]15.8 %High10.9 - 14.2 %[facility] HemeAutoSSHematocrit (Bld) [Volume fraction]37.6 %Vanwtg69.0 - 46.0 %[facility] HemeAutoSSHemoglobin (Bld) [Mass/Vol]12.1 g/yGVfzcir24.0 - 16.0 gm/dLFT[facility] HemeAutoSSMCH (RBC) [Entitic mass]25.7 pgLow27.0 - 34.0 pgFTMC HemeAutoSSMCHC (RBC) [Mass/Vol]32.3 g/dLNormal 31.4 - 36.0 gm/dL[facility] HemeAutoSSMCV (RBC) [Entitic vol]79.6 fLLow80.0 - 100.0 fL [facility] HemeAutoSSPlatelet mean volume (Bld) [Entitic vol]7.2 fLNormal6.4 - 10.8 fL [facility] HemeAutoSSPlatelets (Bld) [#/Vol]281.0 E9/NEdfepx857.0 - 500.0 E9/L[facility] HemeAutoSSRBC (Bld) [#/Vol]4.7 E12/LNormal4.3 - 5.9 E12/L[facility] HemeAutoSSWBC corrected for nucl RBC Auto (Bld) [#/Vol]9.8 E9/LNormal4.0 - 11.0 E9/L[facility] HemeAutoSSCBC AUTO DIFFon 05-15-6600PKSR #0.1 103/ulNormal0.0-0.1The [facility] Centerment on above:Performed By: #### CBC ####[facility] [address] [place] [address]Dr.Tremayne ChangBasophils/100 WBC (Bld)0.6 %Normal0.2-2.0The [facility] SystemComment on above:Performed By: #### CBC ####[facility] W[address]jarcf[address] [place], [place] [address]Dr.Princesslan ChangEO #0.3 103/ulNormal0.0-0.7The [facility] SystemComment on above:Performed By: #### CBC ####[facility] Jaolknotqy[address] [place], [place] [address]Dr.Tremayne ChangEosinophils/100 WBC (Bld)3.9 %Normal 0.9-7.0The [facility] SystemComment on above:Performed By: #### CBC ####[facility] Srxewabcmr[address] [place], [place] [address]Dr.Tremayne Harrison Erythrocyte distribution width (RBC) [Ratio]14.6 %Iikctd61.0-15.0The [facility] Centerment on above:Performed By: #### CBC ####[facility] Iuuddgexwg[address] [place], [place] [address]Dr.Tremayne HarrisonHematocrit (Bld) [Volume fraction]38.8 %Lbihny17.0-48.0The [facility] SystemComment on above:Performed By: #### CBC ####[facility] P[address]ozxeawo[address] [place], [place] [address]Dr.Tremayne ChangHemoglobin (Bld) [Mass/Vol]12.1 g/dL Kytdlh52.0-16.0The [facility] SystemComment on above:Performed By: #### CBC ####[facility] [address] [place], [place] [address]Dr. Tremayne ChangIG #0.02 10e3/ulNormal0.00-0.03The [facility] SystemComment on above: Performed By: #### CBC ####[facility] [address] [place] [address]Dr.Tremayne HarrisonIG %0.2 %Normal0.0-0.5The [facility] SystemComment on above:Performed By: #### CBC ####[facility] Eslzyqlp[address] [place], [place] [address]Dr.Tremayne HarrisonLYMPH #2.8 103/ulNormal1.2-3.8The [facility] SystemComment on above:Performed By: #### CBC ####[facility] Dozfmpnexc[address] [place], [place] [address]Dr. Tremayne HarrisonLymphocytes/100 WBC (Bld)31.6 %Apuniu94.5-60.0The [facility] Comment on above:Performed By: #### CBC ####[facility] Simzomqsge[address] [place], [place] [address]Dr.Tremayne HarrisonMANUAL DIFF REQNONormalThe [facility] SystemComment on above:Performed By: #### CBC ####[facility] Iubaycjdss[address] [place], [place] [address]Dr.Tremayne HarrisonH (RBC) [Entitic mass]25.2 pgCritically low26.7-34.0The [facility] SystemComment on above:Performed By: #### CBC ####[facility] Tmlifckeoq[address] [place], [place] [address]Dr.Tremayne HarrisonMCHC (RBC) [Mass/Vol]31.2 g/dLNormal 29.9-35.2The [facility] SystemComment on above:Performed By: #### CBC ####[facility] B[address]vaxjfzs[address] [place], [place] [address]Dr. Tremayne HarrisonMCV (RBC) [Entitic vol]80.7 fLCritically low81.0-99.0[facility], BeachwoodComment on above:Performed By: #### CBC ####[facility] Pkpzngqhol4[address] [place], [place] [address]Dr.Yilan ChangMONO #0.8 103/ulNormal0.3-0.8The [facility] HospitalComment on above:Performed By: #### CBC ####[facility] Lvwbtkwsts[address] [place], [place] [address]Dr. Tremayne HarrisonMonocytes/100 WBC (Bld)8.5 %Normal1.7-12.0The [facility] Comment on above:Performed By: #### CBC ####[facility] Ztxhyaphqj[address] [place], [place] [address]Dr.Tremayne ChangNEUT #4.9 103/ulNormal1.4-6.5 The [facility] HospitalComment on above:Performed By: #### CBC ####[facility] Eodwrfdvpi[address] [place], [place] [address]Dr.Tremayne Harrison Neutrophils/100 WBC (Bld)55.2 %Paenmp64.0-75.0The [facility] SystemComment on above:Performed By: #### CBC ####[facility] Ihbbsdifij[address] [place], [place] [address]Dr.Tremayne HarrisonPlatelet mean volume (Bld) [Entitic vol] 8.5 fLCritically low9.5-13.5The [facility] SystemComment on above:Performed By: #### CBC ####[facility] Czvibmxrtl[address] [place], [place] [address]Dr.Tremayne FqzlkBFG921 103/otTmxyjs700-467Hmt [facility] HospitalComment on above:Performed By: #### CBC ####[facility] Lvlqopozwc[address] [place], [place] [address]Dr.Tremayne ChangRBC4.81 106/ulNormal4.20-5.40The [facility] SystemComment on above:Performed By: #### CBC ####[facility] Efbxwfqkua[address] [place], [place] [address]Dr.Tremayne ChangWBC8.8 103/ul Normal4.0-11.0The [facility] SystemComment on above:Performed By: #### CBC ####[facility] Hearjdyhcm[address] [place], [place] [address]Dr. Yilan ChangCT CHEST W CONon 42-31-4755SQ CHEST W CONEXAMINATION: CT CHEST W CON [...] Electronically authenticated by: SAVITA UNLU Date: 2022-07-28 17:05NoMemorial Health System [facility]etta Memorial HospitalD-DIMERon 67-47-4476F-DIMER0.37 mg/L FEUNormal<=0.59The [facility] SystemComment on above:Performed By: #### DDIM #### [facility] [address] [place] [address] Dr. Tremayne HarrisonD-DIMER COMMENTSSEE [facility] Toledo HospitalComment on above:Result Comment: Increases in D-Dimer concentration [...] generalized hospitalization. Performed By: #### DDIM #### [facility] [address] [place] [address] Dr. Tremayne Castañeda 14(COMP METB)on 06-09-5908Fqjihei [Mass/Vol]3.2 g/dL Critically low3.4-5.0The [facility] SystemComment on above:Performed By: #### CMP, HSTROPN #### [facility] [address] [place] [address] Dr. Tremayne HarrisonAlbumin/Globulin [Mass ratio]0.8 {ratio}NormalThe [facility] SystemComment on above:Performed By: #### CMP, HSTROPN #### [facility] [address] [place] [address] Dr. Tremayne Espitia [Catalytic activity/Vol]98 U/RHwnqzu65-711Qpn [facility] SystemComment on above:Performed By: #### CMP, HSTROPN #### [facility] [address] [place] [address] Dr. Tremayne Mccall [Catalytic activity/Vol]38 U/NUdpuvw19-10Pwe [facility] SystemComment on above:Performed By: #### CMP, HSTROPN #### [facility] [address] [place] [address] Dr. Tremayne Navarro gap [Moles/Vol]12.2 mmol/LNormalThe [facility] Comment on above:Performed By: #### CMP, HSTROPN #### [facility] [address] [address] [address] Tremayne HarrisnoAST [Catalytic activity/Vol]19 U/EUczueg46-42Xqd [facility] SystemComment on above:Performed By: #### CMP, HSTROPN #### [facility] [address] [address] [address] Tremayne HarrisonBilirubin [Mass/Vol]0.5 mg/dLNormal0.2-1.0The [facility] Comment on above:Performed By: #### CMP, HSTROPN #### [facility] [address] [address] [address] Tremayne HarrisonCalcium [Mass/Vol]9.6 mg/dLNormal8.5-10.1The [facility] Comment on above:Performed By: #### CMP, HSTROPN #### [facility] [address] [address] [address] Tremayne HarrisonChloride [Moles/Vol]106 mmol/WVqbzlt31-068Lpr [facility] Comment on above:Performed By: #### CMP, HSTROPN #### [facility] [address] [address] [address] Tremayne HarrisonCO2 [Moles/Vol]27.5 mmol/OTfxmrq04.0-32.0The [facility] Comment on above:Performed By: #### CMP, HSTROPN #### [facility] [address] [address] [address] Tremayne HarrisonCreatinine [Mass/Vol]1.15 mg/dLCritically high0.55-1.02The [facility] SystemComment on above:Performed By: #### CMP, HSTROPN #### [facility] [address] [address] [address] Casper ChangEGFR-AF CUDDAOTZ68 mL/min/1.87h6Akslnahexi low>=60The [facility] SystemComment on above:Performed By: #### CMP, HSTROPN #### [facility] [address] [address] [address] Tremayne ChatmanGFR-NON AF MUTAZVTF27 mL/min/1.71k1Wmztkjgfkb low>=60The [facility] SystemComment on above:Performed By: #### CMP, HSTROPN #### [facility] [address] [place] [address] Dr. Tremayne HarrisonGlobulin (S) [Mass/Vol]4.1 g/dLNormMetroHealth Parma Medical CenterComment on above:Performed By: #### CMP, HSTROPN #### [facility] [address] [address] [address] Tremayne HarrisonGlucose [Mass/Vol]145 mg/dLCritically hjxu36-048Pxs [facility] SystemComment on above:Performed By: #### CMP, HSTROPN #### [facility] [address] [place] [address] Dr. Tremayne HarrisonPotassium [Moles/Vol]4.7 mmol/LNormal3.5-5.1The [facility] Comment on above:Performed By: #### CMP, HSTROPN #### [facility] [address] [place] [address] Dr. Tremayne HarrisonProtein [Mass/Vol]7.3 g/dLNormal6.4-8.2[facility] [place] Comment on above:Performed By: #### CMP, HSTROPN #### [facility] [address] [place] [address] Dr. Tremayne HarrisonSodium [Moles/Vol]141 mmol/BCjntun227-729Wwl [facility] Comment on above:Performed By: #### CMP, HSTROPN #### [facility] [address] [place] [address] Dr. Tremayne HarrisonUrea nitrogen [Mass/Vol]15.0 mg/dLNormal7.0-18.0The [facility] SystemComment on above:Performed By: #### CMP, HSTROPN #### [facility] [address] [place] [address] Dr. Tremayne HarrisonUrea nitrogen/Creatinine [Mass ratio]13.0 mg/mgNoMemorial Health System Marietta Memorial HospitalComment on above:Performed By: #### CMP, HSTROPN #### [facility] [address] [address] [address] Tremayne Box, HIGH SENSITIVITYon 06-86-5025CCZLML47.9 pg/mLNormal 4.0-51.3The [facility] on above:Result Comment: CUT-OFF POINTS HAVE BEEN ESTABLISHED BASED ON THE FOURTH UNIVERSAL DEFINITIONS OF MYOCARDIAL INFARCTION. THE UPPER REFERENCE LIMIT (URL) OF TROPONIN, DEFINED THE 99TH PERCENTILE OF cTnI DISTRIBUTION IN A REFERENCE POPULATION, HAS BEEN CONFIRMED THE DECISION THRESHOLD FOR RI DIAGNOSIS.Performed By: #### CMP, HSTROPN #### [facility] [address] [address] [address] Tremayne HarrisonXR CHEST 1 Von 99-33-7012MX CHEST 1 VEXAM: XR CHEST 1 V [...] Electronically authenticated by: PAOLO PHAM Date: 2022-07-28 15:13[facility] HospitalGLYCOHEMOGLOBIN A1Con 22-70-0716NTD RECOMMENDATIONSEE BELOW NormalThe [facility] SystemComchelsea hospital on above:Result Comment: ADA RECOMMENDED LIMIT 4.0 - 6.0 ADA THERAPEUTIC TARGET < 7.0 ACTION SUGGESTED > 7.0Performed By: #### A1C #### [facility] [address] [address] [address] Tremayne HarrisonGlucose [Mass/Vol]177 mg/dLNoMemorial Health System Mari[facility] Memorial HospitalComchelsea hospital on above:Performed By: #### A1C #### [facility] [address] [address] [address] Tremayne HarrisonHbA1c (Bld) [Mass fraction]7.8 %Critically high4.5-6.2The [facility] SystemComchelsea hospital on above:Performed By: #### A1C #### [facility] [address] [place] [address] Dr. Tremayne HarrisonGLYCOHEMOGLOBIN A1Con 69-15-4241WHN RECOMMENDATIONSEE BELOWNoOhio State Harding HospitalComchelsea hospital on above:Result Comment: ADA RECOMMENDED LIMIT 4.0 - 6.0 ADA THERAPEUTIC TARGET < 7.0 ACTION SUGGESTED > 7.0Performed By: #### A1C #### [facility] [address] [place] [address] Dr. Tremayne HarrisonGlucose [Mass/Vol]214 mg/dLNoMemorial Health System Marietta Memorial HospitalComment on above:Performed By: #### A1C #### [facility] [address] [place] [address] Dr. Tremayne BarcenasA1c (Bld) [Mass fraction]9.1 %Critically high4.5-6.2The [facility] SystemComment on above:Performed By: #### A1C #### [facility] [address] [place] [address] Dr. Tremayne HarrisonGLYCOHEMOGLOBIN A1Con 37-29-0670PFE RECOMMENDATIONSEE BELOWNormMemorial Health System [facility] HospitalComchelsea hospital on above:Result Comment: ADA RECOMMENDED LIMIT 4.0 - 6.0 ADA THERAPEUTIC TARGET < 7.0 ACTION SUGGESTED > 7.0Performed By: #### A1C #### [facility] [address] [place] [address] Dr. Tremayne HarrisonGlucose [Mass/Vol]223 mg/dLOhioHealth Hardin Memorial HospitalComment on above:Performed By: #### A1C #### [facility] [address] [place] [address] Dr. Tremayne BarcenasA1c (Bld) [Mass fraction]9.4 %Critically high4.5-6.2The [facility] SystemComment on above:Performed By: #### A1C #### [facility] [address] [place] [address] Dr. Tremayne HarrisonMG MAMM SCREEN 3D [place] CADon 20-81-6768BK MAMM SCREEN 3D [place] CAD Patient: PATO CORRAL Exam Date: 10/10/2021 : 1960 Gender:F Ordering : DR GIANFRANCO LAU D.O. Admission #: [id number] Family : Order #: [id number] CLICK HERE TO VIEW EXAM RADIOLOGY REPORT [...] colon cancer at age 57. LOCATION: [facility] BREAST COMPOSITION: Scattered areas fibroglandular density. FINDINGS: [...] by: Isi Danielle M.D. on 10/10/2021 at 11:14NoMemorial Health System Marietta Memorial HospitalMICROALBUMIN, RAND URon 56-71-3948sRZE98.1 mg/LNormal<=30.0The [facility] SystemComment on above:Performed By: #### MALBR ####[facility] [address] [place], [place] [address]RtDr. Tremayne HarrisonPROF 14(COMP METB)on 33-45-3422Utgrolm [Mass/Vol]3.2 g/dLCritically low3.4-5.0The [facility] SystemComment on above:Performed By: #### CMP #### [facility] [address] [place], [place] [address] Dr. Tremayne HarrisonAlbumin/Globulin [Mass ratio]0.9 {ratio}NormalThe [facility] on above:Performed By: #### CMP #### [facility] [address] [address] [address] Tremayne Espitia [Catalytic activity/Vol]103 U/GTwmxwn64-716Gzo [facility] SystemComment on above:Performed By: #### CMP #### [facility] [address] [address] [address] Tremayne CamarilloT [Catalytic activity/Vol]36 U/FCsnmdr43-51Qrw [facility] SystemComment on above:Performed By: #### CMP #### [facility] [address] [address] [address] Tremayne Talberton gap [Moles/Vol]11.8 mmol/LNormalThe [facility] Comment on above:Performed By: #### CMP #### [facility] [address] [place] [address] Dr. Tremayne HarrisonAST [Catalytic activity/Vol]18 U/YLomypn65-24Gzj [facility] SystemComment on above:Performed By: #### CMP #### [facility] [address] [place] [address] Dr. Tremayne HarrisonBilirubin [Mass/Vol]0.3 mg/dLNormal0.2-1.0The [facility] Comment on above:Performed By: #### CMP #### [facility] [address] [place] [address] Dr. Tremayne HarrisonCalcium [Mass/Vol]8.7 mg/dLNormal8.5-10.1The [facility] Comment on above:Performed By: #### CMP #### [facility] [address] [place] [address] Dr. Tremayne HarrisonChloride [Moles/Vol]106 mmol/ZXzwgyp33-244Tka [facility] Comment on above:Performed By: #### CMP #### [facility] [address] [place] [address] Dr. Tremayne HarrisonCO2 [Moles/Vol]25.6 mmol/RNkvyll23.0-32.0The [facility] Comment on above:Performed By: #### CMP #### [facility] [address] [address] [address] Tremayne HarrisonCreatinine [Mass/Vol]1.09 mg/dLCritically high0.55-1.02The [facility] SystemComment on above:Performed By: #### CMP #### [facility] [address] [address] [address] Casper ChangEGFR-AF MACANESE>60Normal>=60The [facility] SystemComment on above:Performed By: #### CMP #### [facility] [address] [address] [address] Tremayne ChatmanGFR-NON AF KISYOLNM71 mL/min/1.57u4Tdnqlmrbru low>=60The [facility] SystemComment on above:Performed By: #### CMP #### [facility] [address] [place] [address] Dr. Tremayne HarrisonGlobulin (S) [Mass/Vol]3.6 g/dLNormalThe [facility] SystemComment on above:Performed By: #### CMP #### [facility] [address] [place] [address] Dr. Tremayne HarrisonGlucose [Mass/Vol]210 mg/dLCritically hwtp66-872Pps [facility] SystemComment on above:Performed By: #### CMP #### [facility] [address] [place] [address] Dr. Tremayne HarrisonPotassium [Moles/Vol]4.4 mmol/LNormal3.5-5.1The [facility] Comment on above:Performed By: #### CMP #### [facility] [address] [place] [address] Dr. Tremayne HarrisonProtein [Mass/Vol]6.8 g/dLNormal6.4-8.2The [facility] Comment on above:Performed By: #### CMP #### [facility] [address] [place] [address] Dr. Tremayne HarrisonSodium [Moles/Vol]139 mmol/LBxvnwg326-980Wul [facility] Comment on above:Performed By: #### CMP #### [facility] [address] [place] [address] Dr. Tremayne Lazar nitrogen [Mass/Vol]15.0 mg/dLNormal7.0-18.0The [facility] SystemComment on above:Performed By: #### CMP #### [facility] [address], [place] [address] Dr. Tremayne Lazar nitrogen/Creatinine [Mass ratio]13.8 mg/mgNormalThe [facility] SystemComment on above:Performed By: #### CMP #### [facility] [address], [place] [address] Dr. Tremayne HarrisonCARDIAC STRESS TESTon 04-83-4972AFHSSFJ STRESS TESTThe [place], [place] NAME: PATO CORRAL DATE OF : MEDICAL REC#: [id number] PERFORATOR: [address] [facility], TRANSADMIT DATE: 08/18/2021 09:35:00 SENIOR [employer] APPLICATIONS DEVELOPER DATE: 08/18/2021 19:00 DICTATING PHYSICIAN: MARTINE MCINTOSH [...] and Approved by: DR MARTINE MCINTOSH 08/24/2021 10:13:00[facility] HospitalNM STRESS/REST MULTIon 08-18-2021 NM STRESS/REST MULTIPatient: PATO CORRAL Exam Date: 08/18/2021 : 1960 Gender:F Ordering : RAJINDER KarlMariia MOHAMUD Admission #: [id number] Family : Order #: [id number] CLICK HERE TO VIEW EXAM RADIOLOGY REPORT [...] by: Art Cross MD on 08/18/2021 at 14:36[facility] Pulmonary Functionon 62-04-7256Psjonutmo FunctionMR #: [id number] [facility] PT. Name: Pato Corral Date: [...] Corral M.D. Date Trans: 05/14/2018 04:38 A/emily DN_JN:[id number] cc: Gianfranco Lau D.O. [address] [place] [address] [facility] [address]UagzrpRmh [facility] CenterPOC GLUCOSE LABon 21-54-7669Caubfun mass uzni216 mg/pJAvbf58-024Mse [facility] CenterComment on above:Performed By: #### 13745 #### [facility] [address] [place] [address], USAGlucose mass vmji423 mg/iWKtrq60-479Bmv [facility] CenterComment on above:Order Comment: No: Do not add to previous drawPerformed By: #### 72069 #### [facility] [address] [place] [address], USAGlucose mass eziz009 mg/mGElvc67-024Ouu [facility] CenterComment on above:Performed By: #### 35230 #### [facility] [address] [place] [address], USABASIC METABOLIC PANELon 88-62-5694Ymyxwnc mass conc8.0 mg/dLLow8.6-10.3The [facility] CenterComment on above:Order Comment: No: Do not add to previous drawPerformed By: #### 72315 #### [facility] [address] [place] [address], USAChloride molar pofi510 mmol/LLabncx54-885Utv [facility] CenterComment on above:Order Comment: No: Do not add to previous drawPerformed By: #### 23076 #### [facility] [address] [place] [address], USACO2 molar conc29 mmol/QGqcbmx76-42Glz [facility] CenterComment on above:Order Comment: No: Do not add to previous draw Performed By: #### [id number] #### [facility] [address] [place] [address], USACreatinine mass conc0.74 mg/dLNormal0.60-1.20The [facility] CenterComment on above:Order Comment: No: Do not add to previous drawPerformed By: #### 70855 #### [facility] [address] [place] [address], USAGFR/1.73 sq M predicted among blacks MDRD vol rate/area (S/P/Bld)mL/min/{1.73_m2}Normal>60The [facility] CenterComment on above:Order Comment: No: Do not add to previous drawPerformed By: #### 01303 #### [facility] [address] [place] [address], USAGFR/1.73 sq M predicted among non-blacks MDRD vol rate/area (S/P/Bld)mL/min/{1.73_m2}Normal>60The [facility] CenterComment on above:Order Comment: No: Do not add to previous drawPerformed By: #### 79534 #### [facility] [address] [place] [address], USAGlucose mass crux786 mg/wCOrir50-856Oti [facility] CenterComment on above:Order Comment: No: Do not add to previous drawPerformed By: #### 35261 #### [facility] [address] [place] [address], USAPotassium molar conc3.6 mmol/LNormal3.5-5.1The [facility] CenterComment on above:Order Comment: No: Do not add to previous drawPerformed By: #### 90234 #### [facility] [address] [place] [address], USASodium molar wmuk037 mmol/VZal218-986Ogg [facility] CenterComment on above:Order Comment: No: Do not add to previous drawPerformed By: #### 25324 #### [facility] [address] [place] [address], USAUrea nitrogen mass conc15 mg/dLNormal7-25The [facility] CenterComment on above:Order Comment: No: Do not add to previous drawPerformed By: #### 28515 #### [facility] [address] [place] [address], [facility] HOSPITALCBC COMPLETE BLOOD COUNTon 25-91-2925Zaxxbjkmqar distribution width Ratio (RBC)15.1 %High11.5-15.0The [facility] CenterComment on above:Order Comment: No: Do not add to previous draw Performed By: #### 26966 #### [facility] [address] [place] [address], USAHematocrit Volume Fraction (Bld)23.7 %Low36.0-45.0The [facility] CenterComment on above:Order Comment: No: Do not add to previous drawPerformed By: #### 36165 #### [facility] [address] [place] [address], [facility] HOSPITALHemoglobin mass conc (Bld)8.0 g/dLLow12.0-15.0The [facility] CenterComment on above:Order Comment: No: Do not add to previous drawPerformed By: #### 03231 #### [facility] [address] [place] [address], [facility] ELK CITYH Entitic mass (RBC)27.6 prVbcdfq59.0-33.0The [facility] CenterComment on above:Order Comment: No: Do not add to previous drawPerformed By: #### 93772 #### [facility] [address] [place] [address], [facility] EL[facility] CITYHC mass conc (RBC)33.8 g/bTWhfqzv77.0-35.0The [facility] CenterComment on above:Order Comment: No: Do not add to previous drawPerformed By: #### 96051 #### [facility] [address] [place] [address], [facility] EL[facility] CITYV Entitic volume (RBC)81.7 fLLow82.0-98.0The [facility] CenterComment on above:Order Comment: No: Do not add to previous drawPerformed By: #### 95559 #### [facility] [address] [place] [address], USANucleated RBC/100 WBC Ratio (Bld)0 %Normal0-0The [facility] So[facility] CenterComment on above:Order Comment: No: Do not add to previous drawPerformed By: #### [id number] #### [facility] [address] [place] [address], USAPLAT JJR661 10*3/fBVtjiex015-891Cjs [facility] CenterComment on above:Order Comment: No: Do not add to previous draw Performed By: #### [id number] #### [facility] [address] [place] [address], USARBC #/vol (Bld)2.90 10*6/uLLow3.80-5.00The [facility] CenterComment on above:Order Comment: No: Do not add to previous drawPerformed By: #### [id number] #### [facility] [address] [place] [address], USAWBC #/vol (Bld)10.78 10*3/uLHigh4.00-10.60The [facility] CenterComment on above:Order Comment: No: Do not add to previous drawPerformed By: #### [id number] #### [facility] [address] [place] [address], USAMAGNESIUM BLOODon 39-98-1975Mvcfnxalr mass conc1.6 mg/dLLow 1.9-2.7The [facility] CenterComment on above:Order Comment: No: Do not add to previous drawPerformed By: #### [id number] #### [facility] [address] [place] [address], USAPOC GLUCOSE LABon 10-72-0283Zyyxott mass fsgq903 mg/dLHigh 70-100The [facility] CenterComment on above:Performed By: #### [id number] #### [facility] [address] [place] [address], USAGlucose mass dqtj654 mg/hFSzts35-386Mxt [facility] CenterComment on above:Performed By: #### 95502 #### [facility] [address] [place] [address], USAGlucose mass twmu364 mg/gCLtvn42-133Jzp [facility] CenterComment on above:Performed By: #### [id number] #### [facility] [address] [place] [address], USAGlucose mass eaoa274 mg/qGIqdh54-883Zwq [facility] CenterComment on above:Performed By: #### 45914 #### [facility] [address] [place] [address], USAGlucose mass tnff349 mg/lNLjwi56-001Uzk [facility] CenterComment on above:Performed By: #### 37738 #### [facility] [address] [place] [address], USAPORTABLE CHEST 1 VIEWon 89-03-2573MACQEFWY CHEST 1 VIEW [facility] Department of Radiology [address] [place] [address] Patient Name: PATO CORRAL : 1960 Sex: F Age: Race: White Pt. Location: [id number] Patient Status: I Ordered Date: 05/02/2018 5:00:00 [...] unchanged. Electronically signed by:Antwon Groves. Transcribed by: [email or web address], User Resident: Electronically Signed by: ANTWON GROVES @ 05/02/2018 06:59 AMNormalThe [facility] CenterComment on above:Order Comment: No: Do not add to previous drawBASIC METABOLIC PANELon 50-29-1866Ddfysmx mass conc8.0 mg/dL Low8.6-10.3The [facility] CenterComment on above:Order Comment: No: Do not add to previous drawPerformed By: #### [id number] #### [facility] [address] [place] [address], USAChloride molar spfx932 mmol/JYkpumh26-827Krk [facility] CenterComment on above:Order Comment: No: Do not add to previous drawPerformed By: #### [id number] #### [facility] [address] [place] [address], USACO2 molar conc27 mmol/IJbezoh67-21Ufk [facility] CenterComment on above:Order Comment: No: Do not add to previous draw Performed By: #### 97526 #### [facility] [address] [place] [address], USACreatinine mass conc0.84 mg/dLNormal0.60-1.20The [facility] CenterComment on above:Order Comment: No: Do not add to previous drawPerformed By: #### 31116 #### [facility] [address] [place] [address], USAGFR/1.73 sq M predicted among blacks MDRD vol rate/area (S/P/Bld)mL/min/{1.73_m2}Normal>60The [facility] CenterComment on above:Order Comment: No: Do not add to previous drawPerformed By: #### 44896 #### [facility] [address] [place] [address], USAGFR/1.73 sq M predicted among non-blacks MDRD vol rate/area (S/P/Bld)mL/min/{1.73_m2}Normal>60The [facility] CenterComment on above:Order Comment: No: Do not add to previous drawPerformed By: #### 60729 #### [facility] [address] [place] [address], USAGlucose mass fgjp629 mg/rYAvej00-881Dac [facility] CenterComment on above:Order Comment: No: Do not add to previous drawPerformed By: #### [id number] #### [facility] [address] [place] [address], USAPotassium molar conc4.2 mmol/LNormal3.5-5.1The [facility] CenterComment on above:Order Comment: No: Do not add to previous drawPerformed By: #### [id number] #### [facility] [address] [place] [address], USASodium molar ashl645 mmol/VWld491-266Ozx [facility] CenterComment on above:Order Comment: No: Do not add to previous drawPerformed By: #### [id number] #### [facility] [address] [place] [address], USAUrea nitrogen mass conc18 mg/dLNormal7-25The [facility] CenterComment on above:Order Comment: No: Do not add to previous drawPerformed By: #### [id number] #### [facility] [address] [place] [address], USACBC COMPLETE BLOOD COUNTon 20-92-7092Xuosawcmvvk distribution width Ratio (RBC)15.4 %High11.5-15.0The [facility] CenterComment on above:Order Comment: No: Do not add to previous draw Performed By: #### 61505 #### [facility] [address] [place] [address], [facility]AL HOSPITALHematocrit Volume Fraction (Bld)21.5 %Low36.0-45.0The [facility] CenterComment on above:Order Comment: No: Do not add to previous drawPerformed By: #### 69550 #### [facility] [address] [place] [address], [facility] HOSPITALHemoglobin mass conc (Bld)7.1 g/dLLow12.0-15.0The [facility] CenterComment on above:Order Comment: No: Do not add to previous drawPerformed By: #### 66540 #### [facility] [address] [place] [address], [facility] EL[facility] CITYH Entitic mass (RBC)27.7 hlKsvlce61.0-33.0The [facility] CenterComment on above:Order Comment: No: Do not add to previous drawPerformed By: #### 46849 #### [facility] [address] [place] [address], [facility] EL[facility] CITYHC mass conc (RBC)33.0 g/xJRoepru64.0-35.0The [facility] CenterComment on above:Order Comment: No: Do not add to previous drawPerformed By: #### [id number] #### [facility] [address] [place] [address], USAMCV Entitic volume (RBC)84.0 tOQmpisy84.0-98.0The [facility] CenterComment on above:Order Comment: No: Do not add to previous drawPerformed By: #### 83555 #### [facility] [address] [place] [address], USANucleated RBC/100 WBC Ratio (Bld)0 %Normal0-0The [facility] CenterComment on above:Order Comment: No: Do not add to previous drawPerformed By: #### 50257 #### [facility] [address] [place] [address], USAPLAT FCC163 10*3/vTEqw217-371Doh [facility] CenterComment on above:Order Comment: No: Do not add to previous draw Performed By: #### [id number] #### [facility] [address] [place] [address], [facility] HOSPITALRBC #/vol (Bld)2.56 10*6/uLLow3.80-5.00The [facility] CenterComment on above:Order Comment: No: Do not add to previous drawPerformed By: #### 86083 #### [facility] [address] [place] [address], USAWBC #/vol (Bld)11.57 10*3/uLHigh4.00-10.60The [facility] CenterComment on above:Order Comment: No: Do not add to previous drawPerformed By: #### 80500 #### [facility] [address] [place] [address], USAHEMOGLOBINon 82-83-6401Fnppddieqn mass conc (Bld)7.3 g/dL Low12.0-15.0The [facility] CenterComment on above:Order Comment: No: Do not add to previous drawPerformed By: #### 91463 #### [facility] [address] [place] [address], USAPOC GLUCOSE LABon 50-27-2982Hgvsiuo mass kmpg969 mg/dLHigh 70-100The [facility] CenterComment on above:Performed By: #### 51406 #### [facility] [address] [facility] [place] [address], USAGlucose mass unbl188 mg/yOVqbn50-197Nve [facility] CenterComment on above:Performed By: #### 03404 #### [facility] [address] [place] [address], USAGlucose mass nbrj803 mg/yWVyul77-216Uji [facility] CenterComment on above:Performed By: #### 54262 #### [facility] [address] [facility] [place] [address], USAGlucose mass mwgq031 mg/fLIxrb49-348Pqm [facility] CenterComment on above:Performed By: #### [id number] #### [facility] [address] [facility] [place] [address], USAPORTABLE CHEST 1 VIEWon 53-86-8927QOTBQTPU CHEST 1 VIEW [facility] Department of Radiology [address] [place] [address] Patient Name: PATO CORRAL : 1960 Sex: F Age: Race: White Pt. Location: [id number] Patient Status: I Ordered Date: 05/01/2018 5:00:00 [...] findings. Electronically signed by:Jerry Charles. Transcribed by: [email or web address], User Resident: MACARIO PATEL Electronically Signed by: JERRY CHARLES @ 05/01/2018 01:37 PM I personally read this/these film(s) with this [facility] HospitalComment on above:Order Comment: No: Do not add to previous drawRB'S 1 UNITon 48-20-5603WOEKYXZEJV INTERP 1CUniversity Hospitals Elyria Medical CenterComment on above:Performed By: #### [id number] #### [facility] [address] [place] [address], USAProtein mass yren452 g/dLNoOhioHealth Hardin Memorial HospitalComment on above:Performed By: #### [id number] #### [facility] [address] [place] [address], USAProtein mass concPTNoOhioHealth Hardin Memorial HospitalComment on above:Result Comment: Result changed by IF on 05/01/2018 10:28. The previous value was XM. Result changed by IF on 05/02/2018 00:30. The previous value was IS.Performed By: #### [id number] #### [facility] [address] [place] [address], USAUNIT ABO 1[facility] Comment on above:Performed By: #### 72003 #### [facility] [address] [place] [address], USAUNIT ID [id number] Health Lorain HospitalComment on above:Performed By: #### [id number] #### [facility] [address] [place] [address], USAUNIT RH 1PositiveMercy Health Lorain HospitalComment on above:Performed By: #### [id number] #### [facility] [address] [place] [address], USATYPE AND SCREENon 26-16-4934FTU INTERPRETATIONAultman Alliance Community HospitalComment on above:Performed By: #### 01584 #### [facility] [address] [place] [address], USARH INTERPRETATIONPositiveMercy Health Lorain HospitalComment on above:Performed By: #### [id number] #### [facility] [address] [place] [address], USABASIC METABOLIC PANELon 78-49-8305Ffkfcke mass conc8.2 mg/dLLow8.6-10.3The [facility] CenterComment on above:Order Comment: No: Do not add to previous drawPerformed By: #### 43577 #### [facility] [address] [place] [address], USAChloride molar fzjk816 mmol/BUedx68-800Vms [facility] CenterComment on above:Order Comment: No: Do not add to previous drawPerformed By: #### [id number] #### [facility] [address] [place] [address], USACO2 molar conc26 mmol/KIpznww87-17Dnl [facility] CenterComment on above:Order Comment: No: Do not add to previous draw Performed By: #### 52441 #### [facility] [address] [place] [address], USACreatinine mass conc0.76 mg/dLNormal0.60-1.20The [facility] CenterComment on above:Order Comment: No: Do not add to previous drawPerformed By: #### 72411 #### [facility] [address] [place] [address], USAGFR/1.73 sq M predicted among blacks MDRD vol rate/area (S/P/Bld)mL/min/{1.73_m2}Normal>60The [facility] CenterComment on above:Order Comment: No: Do not add to previous drawPerformed By: #### 22640 #### [facility] [address] [place] [address], USAGFR/1.73 sq M predicted among non-blacks MDRD vol rate/area (S/P/Bld)mL/min/{1.73_m2}Normal>60The [facility] CenterComment on above:Order Comment: No: Do not add to previous drawPerformed By: #### 58387 #### [facility] [address] [place] [address], USAGlucose mass tgmk495 mg/bXJcss85-193Lzv [facility] CenterComment on above:Order Comment: No: Do not add to previous drawPerformed By: #### 75795 #### [facility] [address] [place] [address], USAPotassium molar conc4.5 mmol/LNormal3.5-5.1The [facility] CenterComment on above:Order Comment: No: Do not add to previous drawPerformed By: #### 19439 #### [facility] [address] [place] [address], USASodium molar sebm836 mmol/ROaooix270-994Suo [facility] CenterComment on above:Order Comment: No: Do not add to previous drawPerformed By: #### 91712 #### [facility] [address] [place] [address], USAUrea nitrogen mass conc16 mg/dLNormal7-25The [facility] CenterComment on above:Order Comment: No: Do not add to previous drawPerformed By: #### 60153 #### [facility] [address] [place] [address], USACBC COMPLETE BLOOD COUNTon 23-43-7978Fdurktpzttm distribution width Ratio (RBC)15.8 %High11.5-15.0The [facility] CenterComment on above:Order Comment: No: Do not add to previous draw Performed By: #### 74223 #### [facility] [address] [facility] [place] [address], USAHematocrit Volume Fraction (Bld)24.5 %Low36.0-45.0The [facility] CenterComment on above:Order Comment: No: Do not add to previous drawPerformed By: #### 91439 #### [facility] [address] [place] [address], USAHemoglobin mass conc (Bld)8.0 g/dLLow12.0-15.0The [facility] CenterComment on above:Order Comment: No: Do not add to previous drawPerformed By: #### 90782 #### [facility] [address] [facility] [place] [address], USAIMM PLATELET FRAC1.6 %Normal0.8-6.3The [facility] CenterComment on above:Order Comment: No: Do not add to previous draw Performed By: #### 38009 #### [facility] [address] [place] [address], [facility] CITYH Entitic mass (RBC)27.8 jgRttpet12.0-33.0The [facility] CenterComment on above:Order Comment: No: Do not add to previous drawPerformed By: #### 22310 #### [facility] [address] [place] [address], [facility] CITYHC mass conc (RBC)32.7 g/zLAgdmvh20.0-35.0The [facility] CenterComment on above:Order Comment: No: Do not add to previous drawPerformed By: #### 86612 #### [facility] [address] [place] [address], [facility] EL[facility] CITYV Entitic volume (RBC)85.1 wQWsdfqf58.0-98.0The [facility] CenterComment on above:Order Comment: No: Do not add to previous drawPerformed By: #### 71826 #### [facility] [address] [place] [address], USANucleated RBC/100 WBC Ratio (Bld)0 %Normal0-0The [facility] CenterComment on above:Order Comment: No: Do not add to previous drawPerformed By: #### 43607 #### [facility] [address] [place] [address], USAPLAT CNT98 10*3/yHImd145-668Vho [facility] CenterComment on above:Order Comment: No: Do not add to previous draw Performed By: #### 54655 #### [facility] [address] [place] [address], [facility] HOSPITALRBC #/vol (Bld)2.88 10*6/uLLow3.80-5.00The [facility] CenterComment on above:Order Comment: No: Do not add to previous drawPerformed By: #### 39571 #### [facility] [address] [place] [address], USAWBC #/vol (Bld)14.45 10*3/uLHigh4.00-10.60The [facility] CenterComment on above:Order Comment: No: Do not add to previous drawPerformed By: #### 90614 #### [facility] [address] [place] [address], USAMAGNESIUM BLOODon 87-69-5613Himrsafaw mass conc2.2 mg/dL Normal1.9-2.7The [facility] CenterComment on above:Performed By: #### 10744 #### [facility] [address] [place] [address], USAPOC GLUCOSE LABon 71-56-0164Ccztqri mass wdey332 mg/dLHigh 70-100The [facility] CenterComment on above:Performed By: #### 00490 #### [facility] [address] [place] [address], USAGlucose mass nwsa271 mg/jJLdlb98-479Xmk [facility] CenterComment on above:Performed By: #### 26911 #### [facility] [address] [place] [address], USAGlucose mass dejk840 mg/uDUjla56-490Xct [facility] CenterComment on above:Performed By: #### 59042 #### [facility] [address] [place] [address], USAGlucose mass joml817 mg/gOHrii49-272Vvk [facility] CenterComment on above:Performed By: #### 71223 #### [facility] [address] [place] [address], USAGlucose mass kwzd072 mg/vNBapn89-645Kbn [facility] CenterComment on above:Performed By: #### 76198 #### [facility] [address] [place] [address], USAGlucose mass conc96 mg/fDCyxate62-884Fdx [facility] CenterComment on above:Performed By: #### 54599 #### [facility] [address] [place] [address], USAGlucose mass buue261 mg/mNDepd66-884Kql [facility] CenterComment on above:Performed By: #### 70532 #### [facility] [address] [place] [address], USAGlucose mass stqm833 mg/gPSkhq25-842Ihx [facility] CenterComment on above:Performed By: #### 16241 #### [facility] [address] [place] [address], USAGlucose mass usia439 mg/dCGrdv11-000Enw [facility] CenterComment on above:Performed By: #### 77808 #### [facility] [address] [facility] [place] [address], USAPORTABLE CHEST 1 VIEWon 06-75-5939XOKNUUMP CHEST 1 VIEW [facility] Department of Radiology [address] [place] [address] Patient Name: PATO CORRAL : 1960 Sex: F Age: Race: White Pt. Location: [id number] Patient Status: I Ordered Date: 04/30/2018 5:00:00 [...] are intact. Interval removal of right-sided IJ Morrison-Jen catheter. No significant change in positioning of [...] pulmonary vasculature. * Interval removal of right-sided Morrison-Jen catheter from prior study. Approved by:Rudy Quiñones on 04/30/2018 1:14 PM EST. I, Jerry Charles, have reviewed the images and report and concur with these findings. Electronically signed by:Jerry Charles. Transcribed by: [email or web address], User Resident: RUDY QUIÑONES Electronically Signed by: JERRY CHARLES @ 04/30/2018 01:32 PM I personally read this/these film(s) with this [facility] HospitalComment on above:Order Comment: No: Do not add to previous drawARTERIAL BLOOD GAS WITH ICAon 54-33-6386HSQS EXCESS-1 mmol/CAdtrhf-1-3Rvt [facility] CenterComment on above:Performed By: #### 85058 #### [facility] [address] [place] [address], USADELIVERY SYSTEMSSalem City HospitalComment on above:Performed By: #### 21546 #### [facility] [address] [place] [address], [facility] HOSPITALHCO3 molar conc (Bld)25 mmol/AZmwizl86-73Mdo [facility] CenterComment on above:Performed By: #### 93085 #### [facility] [address] [place] [address], USAIONIZED CALCIUM1.23 mmol/LNormal1.13-1.32The [facility] CenterComment on above:Performed By: #### 35016 #### [facility] [address] [place] [address], USALPM4.0 LPMNormal0.5-20.0The [facility] CenterComment on above:Performed By: #### 81736 #### [facility] [address] [place] [address], USAOxygen ppres (Bld)85 mm[Hg]Vkphkt35-597Xti [facility] CenterComment on above:Performed By: #### 75295 #### [facility] [address] [place] [address], [facility] HOSPITALOxygen saturation in Blood96.2 %Jcvnox90.0-97.0The [facility] CenterComment on above:Performed By: #### 29567 #### [facility] [address] [place] [address], RZJKOS257 jlFiBfks96-38Fdx [facility] Comment on above:Performed By: #### 59537 #### [facility] [address] [place] [address], USApH (Bld)7.33 [pH]Low7.35-7.45The [facility] CenterComment on above:Performed By: #### 90526 #### [facility] [address] [place] [address], USABASE EXCESS-2 mmol/DZxpopn-9-4Qsq [facility] CenterComment on above:Performed By: #### 44000 #### [facility] [address] [place] [address], USADELIVERY SYSTEMSMVNoOhioHealth Hardin Memorial HospitalComment on above:Performed By: #### 11142 #### [facility] [address] [place] [address], IYEALB848 %Sluzii36-718Ugm [facility] Comment on above:Performed By: #### 61268 #### [facility] [address] [place] [address], USAHCO3 molar conc (Bld)24 mmol/ZDuqvfe84-35Kiz [facility] CenterComment on above:Performed By: #### 06905 #### [facility] [address] [place] [address], USAIONIZED CALCIUM1.18 mmol/LNormal1.13-1.32The [facility] CenterComment on above:Performed By: #### 02005 #### [facility] [address] [place] [address], USAMIN VOLUME7.6NoOhioHealth Hardin Memorial Hospital Comment on above:Performed By: #### 45011 #### [facility] [address] [place] [address], USAMODALITYSPONTNoOhioHealth Hardin Memorial Hospital Comment on above:Performed By: #### 00851 #### [facility] [address] [place] [address], USAOxygen ppres (Bld)95 mm[Hg]Cmcxpm09-139Wbo [facility] CenterComment on above:Performed By: #### 13309 #### [facility] [address] [place] [address], USAOxygen saturation in Blood95.2 %Vygtby93.0-97.0The [facility] CenterComment on above:Performed By: #### 82903 #### [facility] [address] [place] [address], IWOXFF567 qpPkKpfdgm66-31Rjy [facility] CenterComment on above:Performed By: #### 37845 #### [facility] [address] [place] [address], USAPEEP8.0 IGM64DexfwzYleFairfield Medical Center Comment on above:Performed By: #### 71306 #### [facility] [address] [place] [address], USApH (Bld)7.34 [pH]Low7.35-7.45The [facility] CenterComment on above:Performed By: #### 48619 #### [facility] [address] [place] [address], USAPRESSURE HXLQDOE31OkayulSunOhioHealth Hardin Memorial HospitalComment on above:Performed By: #### 18333 #### [facility] [address] [place] [address], USABASIC METABOLIC PANELon 51-11-4226Tiwtwey mass conc7.8 mg/dLLow8.6-10.3The [facility] CenterComment on above:Order Comment: No: Do not add to previous drawPerformed By: #### [id number] #### [facility] [address] [place] [address], USAChloride molar bpmo223 mmol/YLvkb24-418Ygt [facility] CenterComment on above:Order Comment: No: Do not add to previous drawPerformed By: #### [id number] #### [facility] [address] [place] [address], USACO2 molar conc26 mmol/MLiudbf32-95Fue [facility] CenterComment on above:Order Comment: No: Do not add to previous draw Performed By: #### 70376 #### [facility] [address] [place] [address], USACreatinine mass conc0.92 mg/dLNormal0.60-1.20The [facility] CenterComment on above:Order Comment: No: Do not add to previous drawPerformed By: #### 52460 #### [facility] [address] [place] [address], USAGFR/1.73 sq M predicted among blacks MDRD vol rate/area (S/P/Bld)mL/min/{1.73_m2}Normal>60The [facility] [facility] CenterComment on above:Order Comment: No: Do not add to previous drawPerformed By: #### [id number] #### [facility] [address] [place] [address], USAGFR/1.73 sq M predicted among non-blacks MDRD vol rate/area (S/P/Bld)mL/min/{1.73_m2}Normal>60The [facility] Comment on above:Order Comment: No: Do not add to previous drawPerformed By: #### 80910 #### [facility] [address] [place] [address], USAGlucose mass zray217 mg/jPSskb93-370Xrz [facility] CenterComment on above:Order Comment: No: Do not add to previous drawPerformed By: #### [id number] #### [facility] [address] [place] [address], USAPotassium molar conc4.1 mmol/LNormal3.5-5.1The [facility] CenterComment on above:Order Comment: No: Do not add to previous drawPerformed By: #### [id number] #### [facility] [address] [place] [address], USASodium molar uiuy158 mmol/SFkwb313-654Vxk [facility] CenterComment on above:Order Comment: No: Do not add to previous drawPerformed By: #### 45780 #### [facility] [address] [place] [address], USAUrea nitrogen mass conc19 mg/dLNormal7-25The [facility] CenterComment on above:Order Comment: No: Do not add to previous drawPerformed By: #### 05926 #### [facility] [address] [place] [address], USACARDIAC MAGNESIUM BLOODon 99-73-3132Wenpkfbui mass conc2.0 mg/dLNormal1.9-2.7The [facility] CenterComment on above: Performed By: #### 90520 #### [facility] [address] [place] [address], USACBC COMPLETE BLOOD COUNTon 14-58-1454Aylukrjanpu distribution width Ratio (RBC)15.6 %High11.5-15.0The [facility] CenterComment on above:Order Comment: No: Do not add to previous draw Performed By: #### [id number] #### [facility] [address] [place] [address], [facility] HOSPITALHematocrit Volume Fraction (Bld)23.3 %Low36.0-45.0The [facility] CenterComment on above:Order Comment: No: Do not add to previous drawPerformed By: #### 13395 #### [facility] [address] [place] [address], [facility] HOSPITALHemoglobin mass conc (Bld)7.9 g/dLLow12.0-15.0The [facility] CenterComment on above:Order Comment: No: Do not add to previous drawPerformed By: #### 16240 #### [facility] [address] [place] [address], USAMCH Entitic mass (RBC)27.4 kyMxsdpl50.0-33.0The [facility] CenterComment on above:Order Comment: No: Do not add to previous drawPerformed By: #### 97947 #### [facility] [address] [place] [address], [facility] ELK CITYHC mass conc (RBC)33.9 g/rHGewuao75.0-35.0The [facility] CenterComment on above:Order Comment: No: Do not add to previous drawPerformed By: #### [id number] #### [facility] [address] [place] [address], [facility] – ELK CITYV Entitic volume (RBC)80.9 fLLow82.0-98.0The [facility] CenterComment on above:Order Comment: No: Do not add to previous drawPerformed By: #### 30433 #### [facility] [address] [place] [address], [facility] HOSPITALNucleated RBC/100 WBC Ratio (Bld)0 %Normal0-0The [facility] CenterComment on above:Order Comment: No: Do not add to previous drawPerformed By: #### 77790 #### [facility] [address] [place] [address], [facility] HOSPITALPLAT JIJ430 10*3/tKFjp757-783Lja [facility] CenterComment on above:Order Comment: No: Do not add to previous draw Performed By: #### 04963 #### [facility] [address] [place] [address], [facility] HOSPITALRBC #/vol (Bld)2.88 10*6/uLLow3.80-5.00The [facility] CenterComment on above:Order Comment: No: Do not add to previous drawPerformed By: #### 73233 #### [facility] [address] [place] [address], [facility] HOSPITALWBC #/vol (Bld)10.49 10*3/uLNormal4.00-10.60The [facility] CenterComment on above:Order Comment: No: Do not add to previous drawPerformed By: #### 77819 #### [facility] [address] [place] [address], USACOOXIMETRYon 74-25-5335OBDB8 %NormalThe [facility] CenterComment on above:Performed By: #### 69506 #### [facility] [address] [place] [address], USAMETHB1 %NormalThe [facility] Comment on above:Performed By: #### 78112 #### [facility] [address] [place] [address], USAOxygen saturation in Blood58.9 %Low60.0-80.0The [facility] CenterComment on above:Performed By: #### 04254 #### [facility] [address] [place] [address], USATHB7.9 g/dLLow12.0-15.0The [facility] CenterComment on above:Performed By: #### 26649 #### [facility] [address] [place] [address], [facility] HOSPITALHEMOGLOBINon 31-77-3574Yajmhvbclo mass conc (Bld)8.8 g/dL Low12.0-15.0The [facility] CenterComment on above:Order Comment: No: Do not add to previous drawPerformed By: #### 74959 #### [facility] [address] [place] [address], USAMAGNESIUM BLOODon 94-62-4519Xalwyggok mass conc2.3 mg/dL Normal1.9-2.7The [facility] CenterComment on above:Performed By: #### 09822 #### [facility] [address] [place] [address], [facility] HOSPITALOperative Reporton 50-80-5450Fmjpzofai ReportMR#: [id number] I [facility] Pt. Name: Pato Corral Antwon Room #: 3CD [id number] Discharge Date: Birthdate: 1960 OPERATIVE REPORT DATE [...] consent was obtained. COMPLICATIONS: None. DRAINS: Four 19-Kyrgyz Jluis drains with 1 in the left [...] including radial arterial line, right internal jugular Morrison-Jen catheter, and Strickland catheter were placed. General [...] Hemostasis was checked and was secured. Four 19-Kyrgyz Jluis drains were then brought into the field, 1 placed in the left pleural space, 1 in the right pleural space, and 2 in the mediastinum, and they were brought out through separate stab incisions and secured to the chest wall with silk sutures. The sternum was then closed with combination of interrupted and moaeps-lz-klgid stainless steel wires. The soft tissues were [...] then checked and was secured, and a 10-Kyrgyz Jluis drain was then placed in the [...] Ruvalcaba MD Date Trans: 04/29/2018 05:36 A/emily DN_JN:[id number] cc: Gianfranco Lau D.O. [address] [place] [address]673TsmjcjKfcMercy Memorial Hospital GLUCOSE LABon 56-43-1861Txnrrsk mass hlhr674 mg/zWKzbv28-717Nuq [facility] CenterComment on above:Performed By: #### 51181 #### [facility] [address] [place] [address], [facility] HOSPITALGlucose mass mjve714 mg/hMIdro61-033Pic [facility] CenterComment on above:Performed By: #### 84276 #### [facility] [address] [place] [address], USAGlucose mass nljw280 mg/qGIumi75-234Nhf [facility] CenterComment on above:Performed By: #### 54101 #### [facility] [address] [place] [address], USAGlucose mass conc94 mg/aSRzwdzt63-824Egp [facility] CenterComment on above:Performed By: #### 23568 #### [facility] [address] [place] [address], USAGlucose mass meka931 mg/gPTpky67-820Dtd [facility] CenterComment on above:Performed By: #### 32043 #### [facility] [address] [place] [address], USAGlucose mass copm469 mg/kAJuve69-170Jhg [facility] CenterComment on above:Performed By: #### 44572 #### [facility] [address] [place] [address], USAGlucose mass asgy199 mg/oCHsfg49-488Rai [facility] CenterComment on above:Performed By: #### 76625 #### [facility] [address] [place] [address], USAGlucose mass conc97 mg/kVEraqxr88-053Ikt [facility] CenterComment on above:Performed By: #### 57094 #### [facility] [address] [place] [address], USAGlucose mass ciou702 mg/sPYnas76-741Fsd [facility] CenterComment on above:Performed By: #### 81011 #### [facility] [address] [place] [address], USAGlucose mass dlcn231 mg/dGTfov07-715Jlf [facility] CenterComment on above:Performed By: #### 34826 #### [facility] [address] [place] [address], USAGlucose mass eaxi886 mg/tIEgme93-497Lbz [facility] CenterComment on above:Performed By: #### 71924 #### [facility] [address] [place] [address], USAGlucose mass ygsi884 mg/oCZjeo62-391Ant [facility] CenterComment on above:Performed By: #### 56511 #### [facility] [address] [place] [address], USAGlucose mass fxsu014 mg/dPNlxq94-090Rbl [facility] CenterComment on above:Performed By: #### 75398 #### [facility] [address] [place] [address], USAGlucose mass wvoi191 mg/eRVtfc81-587Aha [facility] CenterComment on above:Performed By: #### 05208 #### [facility] [address] [place] [address], USAGlucose mass zres286 mg/hOKgol06-410Ofy [facility] CenterComment on above:Performed By: #### 36488 #### [facility] [address] [place] [address], USAPORTABLE CHEST 1 VIEWon 80-21-1212YFXLVASG CHEST 1 VIEW [facility] Department of Radiology [address] [place] [address] Patient Name: PATO CORRAL : 1960 Sex: F Age: Race: White Pt. Location: [id number] Patient Status: I Ordered Date: 04/29/2018 5:00:00 [...] Stable positioning of bilateral nasopharynx. Right-sided IJ Morrison-Jen with the tip in the main pulmonary [...] findings. Electronically signed by:Jerry Charles. Transcribed by: [email or web address], User Resident: [email or web address] Electronically Signed by: JERRY CHARLES @ 04/29/2018 03:04 PM I personally read this/these film(s) with this [facility] HospitalComment on above:Order Comment: No: Do not add to previous drawPOTASSIUM BLOODon 13-99-7418Rzsjyepfr molar conc3.9 mmol/LNormal3.5-5.1The [facility] CenterComment on above:Order Comment: No: Do not add to previous drawPerformed By: #### 25736 #### [facility] [address] [facility] [place] [address], [facility] HOSPITALPROTHROMBIN TIMEon 62-14-6198WKB Coag RelTime (PPP)1.30 {INR}High0.91-1.16The [facility] CenterComment on above:Order Comment: No: Do [...] OPTIMAL THERAPEUTIC RANGE. CHEST 1995;108:231S-246S.Performed By: #### 23753 #### [facility] [address] [facility] [place] [address], [facility] HOSPITALProthrombin time (PT) Coag time (PPP)16.2 sHigh12.3-14.8The [facility] CenterComment on above:Order Comment: No: Do not add to previous drawResult Comment: ALL RESULTS MUST BE INTERPRETED WITH RESPECT TO BLOOD DRAWING ARTIFACT OR DILUTION ERROR OF ANTICOAGULANT AT THE TIME OF SAMPLING.Performed By: #### 94681 #### [facility] [address] [facility] [place] [address], USAACTIVATED CLOTTING TIMEon 65-83-1494JBWJREAEK CLOTTING TIME 121 laaSlnomm94-366Acz [facility] CenterComment on above: Performed By: #### 22559 #### [facility] [address] [place] [address], USAACTIVATED CLOTTING RDKS061 kfuRyju82-694Dbo [facility] CenterComment on above:Performed By: #### 13676 #### [facility] [address] [place] [address], USAACTIVATED CLOTTING ILYT302 ansVziu05-385Yog [facility] CenterComment on above:Performed By: #### 55134 #### [facility] [address] [place] [address], USAACTIVATED CLOTTING RJJE155 dgoYnvx24-066Ard [facility] CenterComment on above:Performed By: #### 03333 #### [facility] [address] [place] [address], USAACTIVATED CLOTTING RSCB525 pcqDcjj14-091Jsy [facility] CenterComment on above:Performed By: #### 51493 #### [facility] [address] [place] [address], USAACTIVATED CLOTTING LCMQ995 rbhQatk60-745Kya [facility] CenterComment on above:Performed By: #### 30719 #### [facility] [address] [place] [address], USAACTIVATED CLOTTING EQFH280 sbzMwmb94-102Pxa [facility] CenterComment on above:Performed By: #### 97839 #### [facility] [address] [place] [address], USAACTIVATED CLOTTING YQOG859 ppjZcdh00-410Gks [facility] CenterComment on above:Performed By: #### 74492 #### [facility] [address] [place] [address], USAACTIVATED CLOTTING WIRA139 ggdEbnp69-819Ubw [facility] CenterComment on above:Performed By: #### 68748 #### [facility] [address] [place] [address], [facility] HOSPITALACTIVATED CLOTTING TFNW593 cgmCunv98-243Iuh [facility] CenterComment on above:Performed By: #### 52231 #### [facility] [address] [place] [address], USAACTIVATED CLOTTING DGUK641 wqxQaev08-432Osj [facility] CenterComment on above:Performed By: #### 09133 #### [facility] [address] [place] [address], [facility] HOSPITALACTIVATED CLOTTING MBYC717 tvaZiby77-610Bfe [facility] CenterComchelsea hospital on above:Performed By: #### 39000 #### [facility] [address] [place] [address], [facility] HOSPITALACTIVATED CLOTTING XJLO892 vytNlrd11-716Gpb [facility] CenterComment on above:Performed By: #### 51198 #### [facility] [address] [place] [address], [facility] HOSPITALACTIVATED CLOTTING HSOO114 fnwUujldi05-755Jsk [facility] CenterComchelsea hospital on above:Performed By: #### 82966 #### [facility] [address] [place] [address], [facility] HOSPITALAPTTon 88-03-2467aGHR Coag time (Bld)36.9 sHigh25.0-35.0The [facility] CenterComment on above:Result Comment: ALL RESULTS [...] BE USED FOR THIS PURPOSE.Performed By: #### 05337 #### [facility] [address] [place] [address], USAARTERIAL BLOOD GAS W/COOXon 67-81-8614BYBT EXCESS-6 mmol/L Low-2-2[facility] CenterComment on above:Performed By: #### 66682 #### [facility] [address] [place] [address], USACOHB2 %High0-1The [facility] Comment on above:Performed By: #### 03409 #### [facility] [address] [place] [address], USADELIVERY SYSTEMSVENTNoOhioHealth Hardin Memorial HospitalComment on above:Performed By: #### 72448 #### [facility] [address] [place] [address], AMGICC299 %Ljvttk96-507Nqt [facility] Comment on above:Performed By: #### 43192 #### [facility] [address] [place] [address], USAHCO3 molar conc (Bld)21 mmol/PUwd40-36Avi [facility] CenterComment on above:Performed By: #### 69262 #### [facility] [address] [place] [address], USAMETHB0.6 %Normal0.0-1.5The [facility] CenterComment on above:Performed By: #### 37558 #### [facility] [address] [place] [address], USAMIN VOLUME7.0NormFairfield Medical Center Comment on above:Performed By: #### 45577 #### [facility] [address] [facility] [place] [address], USAMODALITYSIMVNoOhioHealth Hardin Memorial Hospital Comment on above:Performed By: #### 18713 #### [facility] [address] [place] [address], USAOxygen ppres (Bld)82 mm[Hg]Unzqvp12-502Cnd [facility] CenterComment on above:Performed By: #### 11433 #### [facility] [address] [place] [address], USAOxygen saturation in Blood93.6 %Low94.0-97.0The [facility] CenterComment on above:Performed By: #### 36948 #### [facility] [address] [place] [address], KVWBPC388 dpAaUzat56-06Kpm [facility] Comment on above:Performed By: #### 88795 #### [facility] [address] [place] [address], USAPEEP8.0 EPM17WcnonxUntOhioHealth Hardin Memorial Hospital Comment on above:Performed By: #### 65605 #### [facility] [address] [place] [address], USApH (Bld)7.25 [pH]Low7.35-7.45The [facility] CenterComment on above:Performed By: #### 41086 #### [facility] [address] [place] [address], USAPRESSURE KHEUFBL6WottmoAxrOhioHealth Hardin Memorial HospitalComment on above:Performed By: #### 20365 #### [facility] [address] [place] [address], MVIPBC52.0 g/bTIojxtx21.0-15.0The [facility] CenterComment on above:Performed By: #### 53526 #### [facility] [address] [place] [address], USATIDAL VOLUME (VT) [id number] Hardin Memorial HospitalComment on above:Performed By: #### 87241 #### [facility] [address] [place] [address], USAARTERIAL BLOOD GAS WITH ICAon 70-60-9231XJWV EXCESS-2 mmol/VXfygpd-2-4Mgz [facility] CenterComment on above: Performed By: #### 13315 #### [facility] [address] [place] [address], USADELIVERY SYSTEMSFirelands Regional Medical Center South CampusComment on above:Performed By: #### 59000 #### [facility] [address] [place] [address], SPHDUT908 %Mjybuv02-952Kgr [facility] Comment on above:Performed By: #### 80039 #### [facility] [address] [place] [address], USAHCO3 molar conc (Bld)24 mmol/DOzhvob96-81Gfh [facility] CenterComment on above:Performed By: #### 14454 #### [facility] [address] [place] [address], USAIONIZED CALCIUM1.14 mmol/LNormal1.13-1.32The [facility] CenterComment on above:Performed By: #### 11795 #### [facility] [address] [place] [address], USAMIN VOLUME7.1NormalThe [facility] Comment on above:Performed By: #### 81898 #### [facility] [address] [place] [address], USAMODALITYSIFirelands Regional Medical Center South Campus Comment on above:Performed By: #### 83137 #### [facility] [address] [place] [address], USAOxygen ppres (Bld)87 mm[Hg]Cwiwkx82-007Agv [facility] CenterComment on above:Performed By: #### 73629 #### [facility] [address] [place] [address], USAOxygen saturation in Blood94.8 %Fpmwbl56.0-97.0The [facility] CenterComment on above:Performed By: #### 08244 #### [facility] [address] [place] [address], IZTFZK912 zmZfPgdnll64-54Alk [facility] CenterComment on above:Performed By: #### 67774 #### [facility] [address] [place] [address], USAPEEP8.0 GIW31ItjypcWcxOhioHealth Hardin Memorial Hospital Comment on above:Performed By: #### 73054 #### [facility] [address] [place] [address], USAPF BTPCB015 yxHpUakygm59-498Iip [facility] CenterComment on above:Performed By: #### 02743 #### [facility] [address] [place] [address], USApH (Bld)7.34 [pH]Low7.35-7.45The [facility] CenterComment on above:Performed By: #### 15630 #### [facility] [address] [place] [address], USAPRESSURE BIGYCYR4AyobypUlyMercy Health Lorain HospitalComment on above:Performed By: #### 89120 #### [facility] [address] [place] [address], USATIDAL VOLUME ([place]) [id number] Hardin Memorial HospitalComment on above:Performed By: #### 26603 #### [facility] [address] [place] [address], USABASE EXCESS-4 mmol/LLow-2-2The [facility] CenterComment on above:Order Comment: No: Do not add to previous drawPerformed By: #### 36178 #### [facility] [address] [place] [address], USADELIVERY SYSTEMSMVMercy Health Lorain HospitalComment on above:Order Comment: No: Do not add to previous drawPerformed By: #### 91572 #### [facility] [address] [place] [address], ADDEYB496 %Oakxpl01-185Lde [facility] Comment on above:Order Comment: No: Do not add to previous drawPerformed By: #### 73438 #### [facility] [address] [place] [address], USAHCO3 molar conc (Bld)22 mmol/VJas02-70Uui [facility] CenterComment on above:Order Comment: No: Do not add to previous drawPerformed By: #### 88692 #### [facility] [address] [place] [address], USAIONIZED CALCIUM1.15 mmol/LNormal1.13-1.32The [facility] CenterComment on above:Order Comment: No: Do not add to previous drawPerformed By: #### 55404 #### [facility] [address] [place] [address], USAMIN VOLUME7.1NormalThe [facility] Comment on above:Order Comment: No: Do not add to previous drawPerformed By: #### 90679 #### [facility] [address] [place] [address], USAMODALITYSIMVNormalThe [facility] Comment on above:Order Comment: No: Do not add to previous drawPerformed By: #### 47003 #### [facility] [address] [place] [address], USAOxygen ppres (Bld)107 mm[Hg]Critically wjom11-980Jnb [facility] CenterComment on above:Order Comment: No: Do not add to previous drawPerformed By: #### 00230 #### [facility] [address] [place] [address], USAOxygen saturation in Blood94.9 %Gwbhll09.0-97.0The [facility] CenterComment on above:Order Comment: No: Do not add to previous drawPerformed By: #### 51380 #### [facility] [address] [place] [address], QSASTP240 pbBrMeyifu13-68Ukz [facility] CenterComment on above:Order Comment: No: Do not add to previous drawPerformed By: #### 83740 #### [facility] [address] [place] [address], USAPEEP8.0 XJU25LppnhpAhsOhioHealth Hardin Memorial Hospital Comment on above:Order Comment: No: Do not add to previous drawPerformed By: #### 84781 #### [facility] [address] [place] [address], USApH (Bld)7.33 [pH]Low7.35-7.45The [facility] CenterComment on above:Order Comment: No: Do not add to previous draw Performed By: #### 62752 #### [facility] [address] [place] [address], USAPRESSURE XJMDUXP2OmvwumViiOhioHealth Hardin Memorial HospitalComment on above:Order Comment: No: Do not add to previous drawPerformed By: #### 50823 #### [facility] [address] [place] [address], USATIDAL VOLUME ([place]) [id number] Hardin Memorial HospitalComment on above:Order Comment: No: Do not add to previous draw Performed By: #### 45272 #### [facility] [address] [place] [address], USABASIC METABOLIC PANELon 88-42-7411Rndwnxt mass conc8.0 mg/dLLow8.6-10.3The [facility] CenterComment on above:Order Comment: No: Do not add to previous drawPerformed By: #### 94823 #### [facility] [address] [place] [address], USACreatinine mass conc0.91 mg/dLNormal0.60-1.20The [facility] CenterComment on above:Order Comment: No: Do not add to previous drawPerformed By: #### [id number] #### [facility] [address] [place] [address], USAUrea nitrogen mass conc16 mg/dLNormal7-25The [facility] CenterComment on above:Order Comment: No: Do not add to previous drawPerformed By: #### 22256 #### [facility] [address] [place] [address], USAPotassium molar conc4.6 mmol/LNormal3.5-4.9The [facility] CenterComment on above:Order Comment: No: Do not add to previous drawPerformed By: #### 28342 #### [facility] [address] [place] [address], USAPerformed By: #### 14277 #### [facility] [address] [place] [address], USAPerformed By: #### 78852 #### [facility] [address] [place] [address], USACalcium mass conc6.1 mg/dLLow8.6-10.3The [facility] CenterComment on above:Order Comment: No: Do not add to previous drawPerformed By: #### [id number] #### [facility] [address] [place] [address], USAChloride molar xalc430 mmol/RNvur76-398Cav [facility] CenterComment on above:Order Comment: No: Do not add to previous drawPerformed By: #### [id number] #### [facility] [address] [place] [address], USAPerformed By: #### [id number] #### [facility] [address] [place] [address], USACO2 molar conc22 mmol/ZCeblum97-98Lzr [facility] CenterComment on above:Order Comment: No: Do not add to previous draw Performed By: #### [id number] #### [facility] [address] [place] [address], USAPerformed By: #### [id number] #### [facility] [address] [place] [address], USACreatinine mass conc0.90 mg/dLNormal0.60-1.20The [facility] CenterComment on above:Order Comment: No: Do not add to previous drawPerformed By: #### [id number] #### [facility] [address] [place] [address], USAGFR/1.73 sq M predicted among blacks MDRD vol rate/area (S/P/Bld)mL/min/{1.73_m2}Normal>60The [facility] CenterComment on above:Order Comment: No: Do not add to previous drawPerformed By: #### [id number] #### [facility] [address] [place] [address], USAPerformed By: #### [id number] #### [facility] [address] [place] [address], USAGFR/1.73 sq M predicted among non-blacks MDRD vol rate/area (S/P/Bld)mL/min/{1.73_m2}Normal>60The [facility] Comment on above:Order Comment: No: Do not add to previous drawPerformed By: #### [id number] #### [facility] [address] [place] [address], USAPerformed By: #### 87800 #### [facility] [address] [place] [address], USAGlucose mass uuco320 mg/iFFxlz52-779Zbx [facility] CenterComment on above:Order Comment: No: Do not add to previous drawPerformed By: #### [id number] #### [facility] [address] [place] [address], USAPotassium molar conc5.1 mmol/LNormal3.5-5.1The [facility] CenterComment on above:Order Comment: No: Do not add to previous drawPerformed By: #### 58725 #### [facility] [address] [place] [address], USASodium molar qozd410 mmol/ZDgckvs390-482Zti [facility] CenterComment on above:Order Comment: No: Do not add to previous drawPerformed By: #### [id number] #### [facility] [address] [place] [address], USAUrea nitrogen mass conc15 mg/dLNormal7-25The [facility] CenterComment on above:Order Comment: No: Do not add to previous drawPerformed By: #### 76861 #### [facility] [address] [place] [address], USASodium molar nggn195 mmol/UKanfvc381-722Zmi [facility] CenterComment on above:Order Comment: No: Do not add to previous drawPerformed By: #### 82070 #### [facility] [address] [place] [address], USAPerformed By: #### [id number] #### [facility] [address] [place] [address], USAGlucose mass zltf190 mg/rCEzqz96-593Ewi [facility] CenterComment on above:Order Comment: No: Do not add to previous drawPerformed By: #### 84136 #### [facility] [address] [place] [address], USAPerformed By: #### 64766 #### [facility] [address] [place] [address], USACBC COMPLETE BLOOD COUNTon [id number] distribution width Ratio (RBC)15.5 %High11.5-15.0The [facility] CenterComment on above:Order Comment: on arrival to CVUNo: Do not add to previous drawPerformed By: #### 51572 #### [facility] [address] [place] [address], [facility] HOSPITALHematocrit Volume Fraction (Bld)37.3 %Jriibd02.0-45.0The [facility] CenterComment on above:Order Comment: on arrival to CVUNo: Do not add to previous drawPerformed By: #### 14127 #### [facility] [address] [place] [address], USAHemoglobin mass conc (Bld)12.3 g/rJEiwgxk91.0-15.0The [facility] CenterComment on above:Order Comment: on arrival to CVUNo: Do not add to previous drawPerformed By: #### [id number] #### [facility] [address] [place] [address], [facility] EL[facility] CITYH Entitic mass (RBC)27.0 ksZgmzaa23.0-33.0The [facility] CenterComment on above:Order Comment: on arrival to CVUNo: Do not add to previous drawPerformed By: #### [id number] #### [facility] [address] [place] [address], [facility] EL[facility] CITYHC mass conc (RBC)33.0 g/kTBbyaju23.0-35.0The [facility] CenterComment on above:Order Comment: on arrival to CVUNo: Do not add to previous drawPerformed By: #### 80120 #### [facility] [address] [place] [address], [facility] EL[facility] CITYV Entitic volume (RBC)82.0 cQOqvpuo38.0-98.0The [facility] CenterComment on above:Order Comment: on arrival to CVUNo: Do not add to previous drawPerformed By: #### 91866 #### [facility] [address] [place] [address], USAPLAT USP681 10*3/rCUnx550-060Vif [facility] CenterComment on above:Order Comment: on arrival to CVUNo: Do not add to previous drawPerformed By: #### [id number] #### [facility] [address] [place] [address], USARBC #/vol (Bld)4.55 10*6/uLNormal3.80-5.00The [facility] CenterComment on above:Order Comment: on arrival to CVUNo: Do not add to previous drawPerformed By: #### [id number] #### [facility] [address] [place] [address], USAWBC #/vol (Bld)16.06 10*3/uLHigh4.00-10.60The [facility] CenterComment on above:Order Comment: on arrival to CVUNo: Do not add to previous drawPerformed By: #### [id number] #### [facility] [address] [place] [address], [facility] HOSPITALErythrocyte distribution width Ratio (RBC)15.8 %High 11.5-15.0The [facility] CenterComment on above:Performed By: #### 16025 #### [facility] [address] [place] [address], [facility] HOSPITALHematocrit Volume Fraction (Bld)26.4 %Low36.0-45.0The [facility] CenterComment on above:Performed By: #### [id number] #### [facility] [address] [place] [address], [facility] HOSPITALHemoglobin mass conc (Bld)8.9 g/dLLow12.0-15.0The [facility] CenterComment on above:Performed By: #### 13740 #### [facility] [address] [place] [address], USAMCH Entitic mass (RBC)27.7 oeWvekpj38.0-33.0The [facility] CenterComment on above:Performed By: #### 46431 #### [facility] [address] [place] [address], [facility] EL[facility] CITYHC mass conc (RBC)33.7 g/aQKeeidi67.0-35.0The [facility] CenterComment on above:Performed By: #### 24098 #### [facility] [address] [place] [address], [facility] Entitic volume (RBC)82.2 yFEgdkrw97.0-98.0The [facility] CenterComment on above:Performed By: #### 25783 #### [facility] [address] [place] [address], [facility] HOSPITALNucleated RBC/100 WBC Ratio (Bld)0 %Normal0-0The [facility] CenterComment on above:Order Comment: on arrival to [facility]: Do not add to previous drawPerformed By: #### [id number] #### [facility] [address] [facility] [place] [address], [facility] HOSPITALPLAT KYF339 10*3/gVGnv741-805Xjk [facility] CenterComment on above:Performed By: #### 25294 #### [facility] [address] [facility] [place] [address], [facility] HOSPITALRBC #/vol (Bld)3.21 10*6/uLLow3.80-5.00The [facility] CenterComment on above:Performed By: #### 64469 #### [facility] [address] [facility] [place] [address], [facility] HOSPITALWBC #/vol (Bld)12.82 10*3/uLHigh4.00-10.60The [facility] CenterComment on above:Performed By: #### 62935 #### [facility] [address] [facility] [place] [address], USAMAGNESIUM BLOODon 24-70-1441Voukquexa mass conc2.8 mg/dL High1.9-2.7The [facility] CenterComment on above:Order Comment: No: Do not add to previous drawPerformed By: #### 48165 #### [facility] [address] [place] [address], USAMagnesium mass conc3.1 mg/dLHigh1.9-2.7The [facility] CenterComment on above:Performed By: #### 48137 #### [facility] [address] [place] [address], USAPERFUSION BLOOD PANELon 31-51-6841ZSLH EXCESS-6.0 mmol/LLow -2.0-3.0The [facility] CenterComment on above:Performed By: #### 55159 #### [facility] [address] [place] [address], [facility] HOSPITALGlucose mass hkxa171 mg/bJUoti19-419Nfc [facility] CenterComment on above:Performed By: #### 11849 #### [facility] [address] [place] [address], USAHematocrit Volume Fraction (Bld)31 %Ecu40-87Uok [facility] CenterComment on above:Performed By: #### 29152 #### [facility] [address] [place] [address], [facility] HOSPITALHemoglobin mass conc (Bld)10.5 g/dLLow12.0-17.0The [facility] CenterComment on above:Performed By: #### 71674 #### [facility] [address] [place] [address], USAIONIZED CALCIUM1.10 mmol/LLow1.12-1.32The [facility] CenterComment on above:Performed By: #### 76337 #### [facility] [address] [place] [address], USAOxygen ppres (Bld)194.0 mm[Hg]High80.0-105.0The [facility] CenterComment on above:Performed By: #### 33094 #### [facility] [address] [place] [address], YQGLID163.8 wlAiAawaee61.0-45.0The [facility] CenterComment on above:Performed By: #### 48429 #### [facility] [address] [address], USApH (Bld)7.32 [pH]Low7.35-7.45The [facility] CenterComment on above:Performed By: #### 20025 #### [facility] [address] [facility] [address], USAPotassium molar conc4.3 mmol/LNormal3.5-4.9The [facility] CenterComment on above:Performed By: #### 72827 #### [facility] [address] [place] [place] [address], USASodium molar czah170 mmol/KFdlvow092-439Kki [facility] CenterComment on above:Performed By: #### 77663 #### [facility] [address] [place] [address], USABASE EXCESS-15.0 mmol/LLow-2.0-3.0The [facility] CenterComment on above:Performed By: #### 43374 #### [facility] [address] [place] [address], USAGlucose mass vtfh672 mg/xAYejw60-777Rkt [facility] CenterComment on above:Performed By: #### 70413 #### [facility] [address] [facility] [place] [address], USAHematocrit Volume Fraction (Bld)19 %Mfb73-06Wib [facility] CenterComment on above:Performed By: #### 49282 #### [facility] [address] [place] [address], [facility] HOSPITALHemoglobin mass conc (Bld)6.5 g/dLLow12.0-17.0The [facility] CenterComment on above:Performed By: #### 41780 #### [facility] [address] [place] [address], [facility] HOSPITALIONIZED CALCIUM0.74 mmol/LCritically low1.12-1.32The [facility] CenterComment on above:Performed By: #### 93680 #### [facility] [address] [place] [address], USAOxygen ppres (Bld)35.0 mm[Hg]NormalThe [facility] CenterComment on above:Performed By: #### 23662 #### [facility] [address] [place] [address], KEJXGA564.7 qbGnVac77.0-51.0The [facility] CenterComment on above:Performed By: #### 47541 #### [facility] [address] [place] [address], USApH (Bld)7.27 [pH]Low7.31-7.41The [facility] CenterComment on above:Performed By: #### 52865 #### [facility] [address] [place] [address], USAPotassium molar conc2.3 mmol/LCritically low3.5-4.9The [facility] CenterComment on above:Performed By: #### 67868 #### [facility] [address] [place] [address], [facility] HOSPITALSodium molar uuef572 mmol/CNnle939-832Kyu [facility] CenterComment on above:Performed By: #### 60093 #### [facility] [address] [place] [address], USABASE EXCESS-5.0 mmol/LLow-2.0-3.0The [facility] CenterComment on above:Performed By: #### 26879 #### [facility] [address] [place] [address], [facility] HOSPITALGlucose mass jycw918 mg/hCSldf88-249Nfp [facility] CenterComment on above:Performed By: #### 74723 #### [facility] [address] [place] [address], [facility] HOSPITALHematocrit Volume Fraction (Bld)27 %Amw10-39Zze [facility] CenterComment on above:Performed By: #### 92037 #### [facility] [address] [facility] [place] [address], [facility] HOSPITALHemoglobin mass conc (Bld)9.2 g/dLLow12.0-17.0The [facility] CenterComment on above:Performed By: #### 16179 #### [facility] [address] [facility] [place] [address], [facility] HOSPITALIONIZED CALCIUM1.17 mmol/LNormal1.12-1.32The [facility] CenterComment on above:Performed By: #### 65583 #### [facility] [address] [facility] [place] [address], USAOxygen ppres (Bld)25.0 mm[Hg]NormalThe [facility] CenterComment on above:Performed By: #### 50493 #### [facility] [address] [facility] [place] [address], WSEONN263.3 bcVbAlnaek69.0-51.0The [facility] CenterComment on above:Performed By: #### 61880 #### [facility] [address] [facility] [place] [address], [facility] HOSPITALpH (Bld)7.26 [pH]Low7.31-7.41The [facility] CenterComment on above:Performed By: #### 02188 #### [facility] [address] [place] [address], USASodium molar zbad027 mmol/XTqtlzv836-358Tbd [facility] CenterComment on above:Performed By: #### 99281 #### [facility] [address] [place] [address], USABASE EXCESS-3.0 mmol/LLow-2.0-3.0The [facility] CenterComment on above:Performed By: #### 63313 #### [facility] [address] [place] [address], USAGlucose mass djxb900 mg/eYOdxm76-221Sua [facility] CenterComment on above:Performed By: #### 10115 #### [facility] [address] [place] [address], USAHematocrit Volume Fraction (Bld)22 %Bre77-35Wpy [facility] CenterComment on above:Performed By: #### 03014 #### [facility] [address] [place] [address], USAHemoglobin mass conc (Bld)7.5 g/dLLow12.0-17.0The [facility] CenterComment on above:Performed By: #### 10994 #### [facility] [address] [place] [address], USAIONIZED CALCIUM1.22 mmol/LNormal1.12-1.32The [facility] CenterComment on above:Performed By: #### 18463 #### [facility] [address] [place] [address], USAOxygen ppres (Bld)252.0 mm[Hg]High80.0-105.0The [facility] CenterComment on above:Performed By: #### 76563 #### [facility] [address] [place] [address], LIOXUA645.0 ehRqFjupjv28.0-45.0The [facility] CenterComment on above:Performed By: #### 77468 #### [facility] [address] [facility] [place] [address], [facility] HOSPITALpH (Bld)7.35 [pH]Normal7.35-7.45The [facility] CenterComment on above:Performed By: #### 21997 #### [facility] [address] [facility] [place] [address], [facility]OSPITALPotassium molar conc4.5 mmol/LNormal3.5-4.9The [facility] CenterComment on above:Performed By: #### 47882 #### [address] [place] [address], [facility] HOSPITALSodium molar ppeb632 mmol/FXkawpq628-236Mqe [facility] CenterComment on above:Performed By: #### 22788 #### [place] [address], USABASE EXCESS-4.0 mmol/LLow-2.0-3.0The [facility] CenterComment on above:Performed By: #### 92699 #### [place] [address], [facility] HOSPITALGlucose mass iuxx032 mg/fPNqwz64-950Opo [facility] CenterComment on above:Performed By: #### [id number] #### [facility] [address] [place] [address], [facility] HOSPITALHematocrit Volume Fraction (Bld)21 %Fvj37-59Fhd [facility] CenterComment on above:Performed By: #### 11780 #### [facility] [address] [place] [address], [facility] HOSPITALHemoglobin mass conc (Bld)7.1 g/dLLow12.0-17.0The [facility] CenterComment on above:Performed By: #### 59919 #### [address] [place] [address], USAIONIZED CALCIUM1.24 mmol/LNormal1.12-1.32The [facility] CenterComment on above:Performed By: #### 34851 #### [facility] [address] [place] [address], USAOxygen ppres (Bld)25.0 mm[Hg]NormalThe [facility] CenterComment on above:Performed By: #### 82559 #### [facility] [address] [place] [address], JXXLHN500.9 pqUyTadfob73.0-51.0The [facility] CenterComment on above:Performed By: #### 59053 #### [facility] [address] [place] [address], USApH (Bld)7.26 [pH]Low7.31-7.41The [facility] CenterComment on above:Performed By: #### 55472 #### [facility] [address] [place] [address], USAPotassium molar conc4.8 mmol/LNormal3.5-4.9The [facility] CenterComment on above:Performed By: #### 73104 #### [facility] [address] [place] [address], USASodium molar yvbd540 mmol/YRxviyc024-241Azz [facility] CenterComment on above:Performed By: #### 99104 #### [facility] [address] [place] [address], USABASE EXCESS-1.0 mmol/LNormal-2.0-3.0The [facility] CenterComment on above:Performed By: #### 21391 #### [facility] [address] [place] [address], USAGlucose mass iarw679 mg/rOXuhf34-538Hqb [facility] CenterComment on above:Performed By: #### 89350 #### [facility] [address] [place] [address], [facility] HOSPITALHematocrit Volume Fraction (Bld)22 %Tfv36-07Ynk [facility] CenterComment on above:Performed By: #### 40267 #### [facility] [address] [place] [address], [facility] HOSPITALHemoglobin mass conc (Bld)7.5 g/dLLow12.0-17.0The [facility] CenterComment on above:Performed By: #### 20575 #### [facility] [address] [place] [address], [facility] HOSPITALIONIZED CALCIUM1.46 mmol/LHigh1.12-1.32The [facility] CenterComment on above:Performed By: #### 10039 #### [facility] [address] [place] [address], USAOxygen ppres (Bld)419.0 mm[Hg]High80.0-105.0The [facility] CenterComment on above:Performed By: #### 39236 #### [facility] [address] [place] [address], WRFGCK844.5 qnGoZpbt36.0-45.0The [facility] CenterComment on above:Performed By: #### 10160 #### [facility] [address] [place] [address], USApH (Bld)7.34 [pH]Low7.35-7.45The [facility] CenterComment on above:Performed By: #### 92449 #### [facility] [address] [place] [address], USAPotassium molar conc4.8 mmol/LNormal3.5-4.9The [facility] CenterComment on above:Performed By: #### 23304 #### [facility] [address] [place] [address], USASodium molar udfm650 mmol/SPwhohw314-013Jcp [facility] CenterComment on above:Performed By: #### 17490 #### [facility] [address] [place] [address], [facility]OSPITALBASE EXCESS1.0 mmol/LNormal-2.0-3.0The [facility] CenterComment on above:Performed By: #### 84767 #### [facility] [address] [facility] [place] [address], [facility] HOSPITALGlucose mass qdwa104 mg/tSGbgz60-129Xcn [facility] CenterComment on above:Performed By: #### 89913 #### [facility] [address] [facility] [place] [place] [address], USAHematocrit Volume Fraction (Bld)20 %Ygu62-43Xcr [facility] CenterComment on above:Performed By: #### 13329 #### [facility] [address] [facility] [place] [address], [facility] HOSPITALHemoglobin mass conc (Bld)6.8 g/dLLow12.0-17.0The [facility] CenterComment on above:Performed By: #### 06978 #### [facility] [address] [facility] [place] [address], USAIONIZED CALCIUM0.92 mmol/LLow1.12-1.32The [facility] CenterComment on above:Performed By: #### 27565 #### [facility] [address] [facility] [place] [address], USAOxygen ppres (Bld)451.0 mm[Hg]High80.0-105.0The [facility] CenterComment on above:Performed By: #### [id number] #### [facility] [address] [facility] [place] [address], NANPNY248.7 igQqIiftdj69.0-45.0The [facility] CenterComment on above:Performed By: #### 50176 #### [facility] [address] [place] [address], USApH (Bld)7.41 [pH]Normal7.35-7.45The [facility] CenterComment on above:Performed By: #### 44493 #### [facility] [address] [place] [address], [facility]OSPITALPotassium molar conc4.9 mmol/LNormal3.5-4.9The [facility] CenterComment on above:Performed By: #### 02186 #### [facility] [address] [place] [address], [facility]OSPITALSodium molar eyat097 mmol/ICmorwb560-823Fyl [facility] CenterComment on above:Performed By: #### 52709 #### [facility] [address] [place] [address], USABASE EXCESS-3.0 mmol/LLow-2.0-3.0The [facility] CenterComment on above:Performed By: #### 68831 #### [facility] [address] [place] [address], [facility] HOSPITALGlucose mass gdli311 mg/dEOmow24-055Mwh [facility] CenterComment on above:Performed By: #### 27568 #### [facility] [address] [place] [address], [facility] HOSPITALHematocrit Volume Fraction (Bld)23 %Ney45-09Rgb [facility] CenterComment on above:Performed By: #### 04501 #### [facility] [address] [place] [address], [facility] HOSPITALHemoglobin mass conc (Bld)7.8 g/dLLow12.0-17.0The [facility] CenterComment on above:Performed By: #### 23537 #### [facility] [address] [place] [address], USAIONIZED CALCIUM0.99 mmol/LLow1.12-1.32The [facility] CenterComment on above:Performed By: #### [id number] #### [facility] [address] [place] [address], USAOxygen ppres (Bld)533.0 mm[Hg]High80.0-105.0The [facility] CenterComment on above:Performed By: #### [id number] #### [facility] [address] [place] [address], YUIMFS865.6 tyImSkoj85.0-45.0The [facility] CenterComment on above:Performed By: #### [id number] #### [facility] [address] [place] [address], USApH (Bld)7.29 [pH]Low7.35-7.45The [facility] CenterComment on above:Performed By: #### [id number] #### [facility] [address] [place] [address], USASodium molar ticm567 mmol/WIatcrv423-317Icw [facility] CenterComment on above:Performed By: #### [id number] #### [facility] [address] [place] [address], USABASE EXCESS-1.0 mmol/LNormal-2.0-3.0The [facility] CenterComment on above:Performed By: #### [id number] #### [facility] [address] [place] [address], USAGlucose mass abmp101 mg/uGXmmc53-902Hbo [facility] CenterComment on above:Performed By: #### [id number] #### [facility] [address] [place] [address], USAHematocrit Volume Fraction (Bld)20 %Ykm32-15Srh [facility] CenterComment on above:Performed By: #### 01490 #### [facility] [address] [place] [address], [facility] HOSPITALHemoglobin mass conc (Bld)6.8 g/dLLow12.0-17.0The [facility] CenterComment on above:Performed By: #### 84056 #### [facility] [address] [place] [address], [facility] HOSPITALIONIZED CALCIUM0.97 mmol/LLow1.12-1.32The [facility] CenterComment on above:Performed By: #### [id number] #### [facility] [address] [place] [address], USAOxygen ppres (Bld)474.0 mm[Hg]High80.0-105.0The [facility] CenterComment on above:Performed By: #### 00534 #### [facility] [address] [facility] [place] [address], COCBVC634.4 osXcWjdcty06.0-45.0The [facility] CenterComment on above:Performed By: #### 24560 #### [facility] [address] [facility] [place] [address], USApH (Bld)7.39 [pH]Normal7.35-7.45The [facility] CenterComment on above:Performed By: #### 51282 #### [facility] [address] [facility] [place] [address], [facility] HOSPITALPotassium molar conc5.0 mmol/LHigh3.5-4.9The [facility] CenterComment on above:Performed By: #### 06866 #### [facility] [address] [facility] [place] [address], [facility] HOSPITALSodium molar msgc438 mmol/KTnvgbj409-877Gsh [facility] CenterComment on above:Performed By: #### 41461 #### [facility] [address] [place] [address], USABASE EXCESS-1.0 mmol/LNormal-2.0-3.0The [facility] CenterComment on above:Performed By: #### 65637 #### [facility] [address] [place] [address], [facility] HOSPITALGlucose mass jsni707 mg/cYEtcq58-247Yud [facility] CenterComment on above:Performed By: #### 47270 #### [facility] [address] [place] [address], [facility] HOSPITALHematocrit Volume Fraction (Bld)20 %Jfx98-62Mms [facility] CenterComment on above:Performed By: #### 46477 #### [facility] [address] [place] [address], [facility] HOSPITALHemoglobin mass conc (Bld)6.8 g/dLLow12.0-17.0The [facility] CenterComment on above:Performed By: #### 22531 #### [facility] [address] [place] [address], USAIONIZED CALCIUM1.05 mmol/LLow1.12-1.32The [facility] CenterComment on above:Performed By: #### 98079 #### [facility] [address] [place] [address], USAOxygen ppres (Bld)480.0 mm[Hg]High80.0-105.0The [facility] CenterComment on above:Performed By: #### 21747 #### [facility] [address] [place] [address], QIYZDK314.9 oiYiAtiiec00.0-45.0The [facility] CenterComment on above:Performed By: #### 43549 #### [facility] [address] [place] [address], USApH (Bld)7.36 [pH]Normal7.35-7.45The [facility] CenterComment on above:Performed By: #### 98116 #### [facility] [address] [facility] [place] [address], [facility] HOSPITALPotassium molar conc3.7 mmol/LNormal3.5-4.9The [facility] CenterComment on above:Performed By: #### 00486 #### [facility] [address] [facility] [place] [address], [facility] HOSPITALBASE EXCESS-2.0 mmol/LNormal-2.0-3.0The [facility] CenterComment on above:Performed By: #### 40027 #### [facility] [address] [facility] [place] [address], [facility] HOSPITALGlucose mass lenz218 mg/cWIuay73-012Ury [facility] CenterComment on above:Performed By: #### 23646 #### [facility] [address] [facility] [place] [address], [facility] HOSPITALHematocrit Volume Fraction (Bld)17 %Wet03-39Ila [facility] CenterComment on above:Performed By: #### 47967 #### [facility] [address] [facility] [place] [address], [facility] HOSPITALHemoglobin mass conc (Bld)5.8 g/dLCritically low12.0-17.0 The [facility] CenterComment on above:Performed By: #### 70704 #### [facility] [address] [facility] [place] [address], [facility] HOSPITALIONIZED CALCIUM0.95 mmol/LLow1.12-1.32The [facility] CenterComment on above:Performed By: #### 82419 #### [facility] [address] [facility] [place] [address], [facility] HOSPITALOxygen ppres (Bld)482.0 mm[Hg]High80.0-105.0The [facility] CenterComment on above:Performed By: #### 60326 #### [facility] [address] [place] [address], VLIYHC255.4 yjSuHxicqx82.0-45.0The [facility] CenterComment on above:Performed By: #### 12220 #### [facility] [address] [place] [address], USApH (Bld)7.35 [pH]Normal7.35-7.45The [facility] CenterComment on above:Performed By: #### 33247 #### [facility] [address] [place] [address], USAPotassium molar conc4.5 mmol/LNormal3.5-4.9The [facility] CenterComment on above:Performed By: #### 57444 #### [facility] [address] [place] [address], USASodium molar eubg406 mmol/TLttlro530-666Ayx [facility] CenterComment on above:Performed By: #### 39822 #### [facility] [address] [place] [address], USABASE EXCESS-6.0 mmol/LLow-2.0-3.0The [facility] CenterComment on above:Performed By: #### 46686 #### [facility] [address] [place] [address], USAGlucose mass xzsh526 mg/cBSege60-400Crg [facility] CenterComment on above:Performed By: #### 03905 #### [facility] [address] [place] [address], USAHematocrit Volume Fraction (Bld)22 %Btg38-70Dka [facility] CenterComment on above:Performed By: #### 92522 #### [facility] [address] [place] [address], USAHemoglobin mass conc (Bld)7.5 g/dLLow12.0-17.0The [facility] CenterComment on above:Performed By: #### 68553 #### [facility] [address] [place] [address], USAIONIZED CALCIUM1.14 mmol/LNormal1.12-1.32The [facility] CenterComment on above:Performed By: #### 57116 #### [facility] [address] [address], USAOxygen ppres (Bld)31.0 mm[Hg]NormalThe [facility] CenterComment on above:Performed By: #### 45869 #### [facility] [address] [place] [address], YERPQL778.4 mtTqYxqoye36.0-51.0The [facility] CenterComment on above:Performed By: #### 83202 #### [facility] [address] [place] [address], USApH (Bld)7.24 [pH]Low7.31-7.41The [facility] CenterComment on above:Performed By: #### 55856 #### [facility] [address] [place] [address], USASodium molar gzkj560 mmol/MHmujdy799-918Wck [facility] CenterComment on above:Performed By: #### 42507 #### [facility] [address] [place] [address], USABASE EXCESS-5.0 mmol/LLow-2.0-3.0The [facility] CenterComment on above:Performed By: #### 28356 #### [facility] [address] [place] [address], USAHematocrit Volume Fraction (Bld)23 %Evg68-45Fpz [facility] CenterComment on above:Performed By: #### 59647 #### [facility] [address] [place] [address], [facility] HOSPITALHemoglobin mass conc (Bld)7.8 g/dLLow12.0-17.0The [facility] CenterComment on above:Performed By: #### 66807 #### [facility] [address] [place] [address], [facility] HOSPITALIONIZED CALCIUM1.14 mmol/LNormal1.12-1.32The [facility] CenterComment on above:Performed By: #### 70788 #### [facility] [address] [place] [address], [facility] HOSPITALOxygen ppres (Bld)326.0 mm[Hg]High80.0-105.0The [facility] CenterComment on above:Performed By: #### 00483 #### [facility] [address] [place] [address], KZUVFN685.6 nhXsHvombi07.0-45.0The [facility] CenterComment on above:Performed By: #### 00440 #### [facility] [address] [place] [address], USApH (Bld)7.33 [pH]Low7.35-7.45The [facility] CenterComment on above:Performed By: #### 69443 #### [facility] [address] [place] [address], [facility]OSPITALPotassium molar conc4.7 mmol/LNormal3.5-4.9The [facility] CenterComment on above:Performed By: #### 99379 #### [facility] [address] [place] [address], [facility] HOSPITALSodium molar sxpn051 mmol/QYgqymg164-583Otx [facility] CenterComment on above:Performed By: #### 23277 #### [facility] [address] [place] [address], USABASE EXCESS-4.0 mmol/LLow-2.0-3.0The [facility] CenterComment on above:Performed By: #### 44900 #### [facility] [address] [place] [address], [facility] HOSPITALGlucose mass njrv991 mg/wRFhqn28-297Mjo [facility] CenterComment on above:Performed By: #### 86513 #### [facility] [address] [place] [address], USAHematocrit Volume Fraction (Bld)30 %Wpe09-19Xfr [facility] CenterComment on above:Performed By: #### 13905 #### [facility] [address] [place] [address], [facility] HOSPITALHemoglobin mass conc (Bld)10.2 g/dLLow12.0-17.0The [facility] CenterComment on above:Performed By: #### 47341 #### [facility] [address] [place] [address], USAIONIZED CALCIUM1.19 mmol/LNormal1.12-1.32The [facility] CenterComment on above:Performed By: #### 34937 #### [facility] [address] [place] [address], USAOxygen ppres (Bld)250.0 mm[Hg]High80.0-105.0The [facility] CenterComment on above:Performed By: #### 03585 #### [facility] [address] [facility] [place] [address], IQKQQN741.1 vsVaAhvj99.0-45.0The [facility] CenterComment on above:Performed By: #### 23093 #### [facility] [address] [place] [address], USApH (Bld)7.29 [pH]Low7.35-7.45The [facility] CenterComment on above:Performed By: #### 80455 #### [facility] [address] [place] [address], [facility] HOSPITALPotassium molar conc4.5 mmol/LNormal3.5-4.9The [facility] CenterComment on above:Performed By: #### 98281 #### [facility] [address] [place] [address], [facility] HOSPITALSodium molar dzen059 mmol/UJkpfsa986-442Cxk [facility] CenterComment on above:Performed By: #### 62644 #### [facility] [address] [place] [address], USABASE EXCESS-4.0 mmol/LLow-2.0-3.0The [facility] CenterComment on above:Performed By: #### 89114 #### [facility] [address] [place] [address], [facility] HOSPITALGlucose mass zfzh171 mg/tFWnzf41-132Acu [facility] CenterComment on above:Performed By: #### 58888 #### [facility] [address] [place] [address], [facility] HOSPITALHematocrit Volume Fraction (Bld)32 %Tyr61-18Gvc [facility] CenterComment on above:Performed By: #### 35537 #### [facility] [address] [place] [address], [facility] HOSPITALHemoglobin mass conc (Bld)10.9 g/dLLow12.0-17.0The [facility] CenterComment on above:Performed By: #### 43688 #### [facility] [address] [place] [address], USAIONIZED CALCIUM1.20 mmol/LNormal1.12-1.32The [facility] CenterComment on above:Performed By: #### 33553 #### [facility] [address] [place] [address], USAOxygen ppres (Bld)108.0 mm[Hg]High80.0-105.0The [facility] CenterComment on above:Performed By: #### 32672 #### [facility] [address] [place] [address], NADOXW465.2 zzWpGgjops97.0-45.0The [facility] CenterComment on above:Performed By: #### 41602 #### [facility] [address] [place] [address], USApH (Bld)7.33 [pH]Low7.35-7.45The [facility] CenterComment on above:Performed By: #### 79900 #### [facility] [address] [place] [address], USAPotassium molar conc4.3 mmol/LNormal3.5-4.9The [facility] CenterComment on above:Performed By: #### 23878 #### [facility] [address] [place] [address], USASodium molar tjvk461 mmol/FRpmzjx725-280Wwh [facility] CenterComment on above:Performed By: #### 30977 #### [facility] [address] [place] [address], USAPOC GLUCOSE LABon 64-79-1586Pcmlobu mass lsyp053 mg/dLHigh 70-100The [facility] CenterComment on above:Performed By: #### 81608 #### [facility] [address] [place] [address], USAGlucose mass zczp302 mg/wVPzjw99-934Muu [facility] CenterComment on above:Performed By: #### 76483 #### [facility] [address] [place] [address], USAGlucose mass nmgp281 mg/oFVlcw42-780Fzz [facility] CenterComment on above:Performed By: #### 30283 #### [facility] [address] [facility] [place] [address], USAGlucose mass llke392 mg/gMXdfi27-812Jlo [facility] CenterComment on above:Performed By: #### 20967, 87486, 69245 #### [facility] [address] [facility] [place] [address], USAPORTABLE CHEST 1 VIEWon [id number] CHEST 1 VIEW [facility] Department of Radiology [address] [place] [address] [id number] Patient Name: PATO CORRAL : 1960 Sex: F Age: Race: White Pt. Location: [address] [place] [address] Patient Status: I Ordered Date: 04/28/2018 6:15:00 [...] stomach, in satisfactory position. Right IJ approach Morrison-Jen catheter with tip in the main pulmonary [...] tube in satisfactory position. Right IJ approach Morrison-Jen catheter with tip in the main pulmonary [...] findings. Electronically signed by:Jerry Charles. Transcribed by: [email or web address], User Resident: CHANTE HAINES Electronically Signed by: JERRY CHARLES @ 04/29/2018 07:53 AM I personally read this/these film(s) with this [facility] HospitalComment on above:Order Comment: No: Do not add to previous drawPROTHROMBIN TIMEon [id number] Coag RelTime (PPP)1.37 {INR}High0.91-1.16 The [facility] CenterComment on above:Result Comment: ACCCP RECOMMENDED [...] OPTIMAL THERAPEUTIC RANGE. CHEST 1995;108:231S-246S.Performed By: #### 73275 #### [facility] [address] [place] [address], [facility] HOSPITALProthrombin time (PT) Coag time (PPP)16.9 sHigh12.3-14.8The [facility] CenterComment on above:Result Comment: ALL RESULTS MUST BE INTERPRETED WITH RESPECT TO BLOOD DRAWING ARTIFACT OR DILUTION ERROR OF ANTICOAGULANT AT THE TIME OF SAMPLING.Performed By: #### 78970 #### [facility] [address] [place] [address], [facility] HOSPITALRBC'S 2 UNITSon 77-16-1355CWOWOPIDDE INTERP 1CUniversity Hospitals Elyria Medical CenterComment on above:Performed By: #### 81104 #### [facility] [address] [place] [address], USACROSSMATCH INTERP 2CUniversity Hospitals Elyria Medical CenterComment on above:Performed By: #### 30171 #### [facility] [address] [place] [address], USAProtein mass concPTNoOhioHealth Hardin Memorial HospitalComment on above:Result Comment: Result changed by IF on 04/29/2018 10:38. The previous value was XM. Result changed by IF on 04/30/2018 00:30. The previous value was IS.Performed By: #### 01173 #### [facility] [address] [place] [address], USAProtein mass sakz658 g/dLMercy Health Lorain HospitalComment on above:Performed By: #### 89116 #### [facility] [address] [place] [address], USAProtein mass concREMercy Health Lorain HospitalComment on above:Result Comment: Result changed by IF on 05/01/2018 07:28. The previous value was XM.Performed By: #### 34297 #### [facility] [address] [place] [address], USAUNIT ABO 1[facility] Comment on above:Performed By: #### 55148 #### [facility] [address] [place] [address], USAUNIT ABO 2[facility] Comment on above:Performed By: #### 87107 #### [facility] [address] [place] [address], USAUNIT ID [id number] County HospitalComment on above:Performed By: #### 92533 #### [facility] [address] [place] [address], USAUNIT ID [id number] Regional Medical CenterComment on above:Performed By: #### 93031 #### [facility] [address] [place] [address], USAUNIT RH 1PTriHealth Bethesda Butler HospitalComment on above:Performed By: #### 01484 #### [facility] [address] [place] [address], USAUNIT RH 2PosiOhio Valley Surgical HospitalComment on above:Performed By: #### 25531 #### [facility] [address] [place] [address], USACROSSMATCH INTERP 1CUniversity Hospitals Elyria Medical CenterComment on above:Performed By: #### 84099 #### [facility] [address] [place] [address], USACROSSMATCH INTERP 2CUniversity Hospitals Elyria Medical CenterComment on above:Performed By: #### 28004 #### [facility] [address] [place] [address], USAProtein mass hwcb119 g/dLNoOhioHealth Hardin Memorial HospitalComment on above:Performed By: #### 76618 #### [facility] [address] [place] [address], USAProtein mass concPTNoOhioHealth Hardin Memorial HospitalComment on above:Result Comment: Result changed by IF on 04/28/2018 15:02. The previous value was XM. Result changed by IF on 04/29/2018 00:30. The previous value was IS.Performed By: #### 07439 #### [facility] [address] [place] [address], USAUNIT ABO 1[facility] Comment on above:Performed By: #### 81981 #### [facility] [address] [place] [address], USAUNIT ABO 2[facility] Comment on above:Performed By: #### 08939 #### [facility] [address] [place] [address], USAUNIT ID [id number] HospitalComment on above:Performed By: #### 74181 #### [facility] [address] [place] [address], USAUNIT ID [id number] HospitalComment on above:Performed By: #### 42067 #### [facility] [address] [place] [address], USAUNIT RH 1PTriHealth Bethesda Butler HospitalComment on above:Performed By: #### 93880 #### [facility] [address] [place] [address], USAUNIT RH 2PosiOhio Valley Surgical HospitalComment on above:Performed By: #### 72540 #### [facility] [address] [place] [address], USACROSSMATCH INTERP 1CUniversity Hospitals Elyria Medical CenterComment on above:Performed By: #### 70073 #### [facility] [address] [place] [address], USACROSSMATCH INTERP 2CUniversity Hospitals Elyria Medical CenterComment on above:Performed By: #### 12252 #### [facility] [address] [place] [address], USAProtein mass xhpl601 g/dLNoOhioHealth Hardin Memorial HospitalComment on above:Performed By: #### 21921 #### [facility] [address] [place] [address], USAProtein mass concPTNoOhioHealth Hardin Memorial HospitalComment on above:Result Comment: Result changed by IF on 04/28/2018 13:08. The previous value was XM. Result changed by IF on 04/29/2018 00:30. The previous value was IS.Performed By: #### 61837 #### [facility] [address] [place] [address], USAUNIT ABO 1[facility] Comment on above:Performed By: #### 82172 #### [facility] [address] [place] [address], USAUNIT ABO 2[facility] Comment on above:Performed By: #### 66055 #### [facility] [address] [place] [address], USAUNIT ID [id number] [facility] CenterComment on above:Performed By: #### 69269 #### [facility] [address] [place] [address], USAUNIT ID [id number] HealthComment on above:Performed By: #### 39606 #### [facility] [address] [place] [address], USAUNIT RH 1PTriHealth Bethesda Butler HospitalComment on above:Performed By: #### 20358 #### [facility] [address] [place] [address], USAUNIT RH 2PTriHealth Bethesda Butler HospitalComment on above:Performed By: #### 74460 #### [facility] [address] [place] [address], USAUFH HEPARIN ASSAYon 97-47-6571YGTTETKHFXRLFT HEPARIN<0.10 Critically low0.30-0.70The [facility] CenterComment on above: Result Comment: Rivaroxaban and Apixaban will interfere with the anti Xa assay used to monitor UFH and LMWH. RESULTS CHECKED AND CALLED. ACCURATELY READ BACK BY BRADY JORDAN RN AT 07:41Performed By: #### 17591 #### [facility] [address] [place] [address], USAARTERIAL BLOOD GAS W/COOXon 08-00-7881LOVF EXCESS0 mmol/L Hugtor-8-9Gvg [facility] CenterComment on above:Performed By: #### 69596, 28942, 65980 #### [facility] [address] [place] [address], USACOHB1 %Normal0-1The [facility] Comment on above:Performed By: #### 42764, 46575, 46962 #### [facility] [address] [place] [address], USADELIVERY SYSTEMSKettering Health Washington TownshipComment on above:Performed By: #### 59675, 32408, 62087 #### [facility] [address] [place] [address], LHVOIV735 %Wpijeg74-397Dpb [facility] Comment on above:Performed By: #### 40979, 28276, 88725 #### [facility] [address] [place] [address], USAHCO3 molar conc (Bld)25 mmol/LCkqams85-85Ksg [facility] CenterComment on above:Performed By: #### 45142, 87313, 94363 #### [facility] [address] [place] [address], USAMETHB0.2 %Normal0.0-1.5The [facility] CenterComment on above:Performed By: #### 26991, 84011, 30168 #### [facility] [address] [place] [address], USAOxygen ppres (Bld)76 mm[Hg]Tpjdtn07-292Gor [facility] CenterComment on above:Performed By: #### 47979, 99413, 77987 #### [facility] [address] [place] [address], USAOxygen saturation in Blood93.6 %Low94.0-97.0The [facility] CenterComment on above:Performed By: #### [id number], [id number], [id number] #### [facility] [address] [place] [address], [id number] [id number] [facility] CenterComment on above:Performed By: #### [id number], [id number], [id number] #### [facility] [address] [place] [address], USApH (Bld)7.39 [pH]Normal7.35-7.45The [facility] CenterComment on above:Performed By: #### [id number], [id number], [id number] #### [facility] [address] [place] [address], ACEOFB31.8 g/sXJdlsbs50.0-15.0The [facility] CenterComment on above:Performed By: #### [id number], [id number], [id number] #### [facility] [address] [place] [address], USABASIC METABOLIC PANELon [id number] mass conc8.7 mg/dLNormal8.6-10.3The [facility] CenterComment on above:Order Comment: No: Do not add to previous drawPerformed By: #### 69972, 74055, 55739 #### [facility] [address] [place] [address], USAChloride molar zwdw645 mmol/SBikpmv97-351Qqq [facility] CenterComment on above:Order Comment: No: Do not add to previous drawPerformed By: #### 91735, 64384, 68580 #### [facility] [address] [place] [address], USACO2 molar conc26 mmol/TOovjir99-54Wit [facility] CenterComment on above:Order Comment: No: Do not add to previous draw Performed By: #### 47940, 12303, 34596 #### [facility] [address] [place] [address], USACreatinine mass conc0.65 mg/dLNormal0.60-1.20The [facility] CenterComment on above:Order Comment: No: Do not add to previous drawPerformed By: #### 68012, 20760, 22901 #### [facility] [address] [place] [address], USAGFR/1.73 sq M predicted among blacks MDRD vol rate/area (S/P/Bld)mL/min/{1.73_m2}Normal>60The [facility] CenterComment on above:Order Comment: No: Do not add to previous drawPerformed By: #### 21453, 35434, 25423 #### [facility] [address] [place] [address], USAGFR/1.73 sq M predicted among non-blacks MDRD vol rate/area (S/P/Bld)mL/min/{1.73_m2}Normal>60The [facility] Comment on above:Order Comment: No: Do not add to previous drawPerformed By: #### 08170, 57219, 00859 #### [facility] [address] [place] [address], USAGlucose mass imin435 mg/yHIoya61-227Bjm [facility] CenterComment on above:Order Comment: No: Do not add to previous drawPerformed By: #### 46910, 90939, 09318 #### [facility] [address] [place] [address], USAPotassium molar conc3.8 mmol/LNormal3.5-5.1The [facility] CenterComment on above:Order Comment: No: Do not add to previous drawPerformed By: #### 42649, 81766, 21435 #### [facility] [address] [place] [address], USASodium molar sdcc413 mmol/PCww868-374Qmv [facility] CenterComment on above:Order Comment: No: Do not add to previous drawPerformed By: #### 02925, 11610, 20412 #### [facility] [address] [place] [address], USAUrea nitrogen mass conc12 mg/dLNormal7-25The [facility] CenterComment on above:Order Comment: No: Do not add to previous drawPerformed By: #### 06430, 25884, 05924 #### [facility] [address] [place] [address], [facility] COMPLETE BLOOD COUNTon 14-05-0503Pxhocmwcmup distribution width Ratio (RBC)14.0 %Wbvkgm86.5-15.0The [facility] CenterComment on above:Order Comment: No: Do not add to previous draw Performed By: #### 76233, 82872, 11950 #### [facility] [address] [place] [address], USAHematocrit Volume Fraction (Bld)35.3 %Low36.0-45.0The [facility] CenterComment on above:Order Comment: No: Do not add to previous drawPerformed By: #### 28038, 79021, 62760 #### [facility] [address] [place] [address], [facility] HOSPITALHemoglobin mass conc (Bld)11.4 g/dLLow12.0-15.0The [facility] CenterComment on above:Order Comment: No: Do not add to previous drawPerformed By: #### 87900, 82727, 69722 #### [facility] [address] [place] [address], [facility] Entitic mass (RBC)25.4 pgLow27.0-33.0The [facility] CenterComment on above:Order Comment: No: Do not add to previous drawPerformed By: #### 86454, 21636, 32149 #### [facility] [address] [place] [address], [facility] HOSPITALMCHC mass conc (RBC)32.3 g/aTDtvmjp57.0-35.0The [facility] CenterComment on above:Order Comment: No: Do not add to previous drawPerformed By: #### 43584, 74967, 99537 #### [facility] [address] [place] [address], [facility] CITYV Entitic volume (RBC)78.6 fLLow82.0-98.0The [facility] CenterComment on above:Order Comment: No: Do not add to previous drawPerformed By: #### 70481, 21123, 15604 #### [facility] [address] [place] [address], USANucleated RBC/100 WBC Ratio (Bld)0 %Normal0-0The [facility] CenterComment on above:Order Comment: No: Do not add to previous drawPerformed By: #### 64247, 65875, 35812 #### [facility] [address] [place] [address], USAPLAT SQE432 10*3/jDDyhrjj660-588Ded [facility] CenterComment on above:Order Comment: No: Do not add to previous draw Performed By: #### 83629, 83100, 61954 #### [facility] [address] [place] [address], USARBC #/vol (Bld)4.49 10*6/uLNormal3.80-5.00The [facility] CenterComment on above:Order Comment: No: Do not add to previous drawPerformed By: #### 22057, 61124, 05714 #### [facility] [address] [place] [address], USAWBC #/vol (Bld)7.38 10*3/uLNormal4.00-10.60The [facility] CenterComment on above:Order Comment: No: Do not add to previous drawPerformed By: #### 31545, 55521, 06234 #### [facility] [address] [place] [address], USACardiovascular Lab Reporton [id number] Lab ReportUnCrystal Clinic Orthopedic Center [facility] MR #: [id number] Department of Physician: Martine Roberto Dewayne Mcintosh M.D. Division of Service Date: 04/26/2018 Cardiology Birthdate: 1960 Adult Cardiovascular Room #: 3AB 225177 [facility] [address] [place] [address] Cardiovascular Laboratory Report INDICATION: The patient is a 57-year-old woman, who is admitted with symptoms of unstable angina. A stress test yesterday showed apical maría elena-infarct ischemia. She was referred for cardiac catheterization. PROCEDURE: Bilateral selective coronary angiography from the right radial access. METHODS: Procedure was explained to the patient with the risks and benefits. She signed informed consent. She was brought to laboratory courier in a fasting state. The right wrist area was prepped and draped in the usual fashion. Tong's test was favorable. Using micropuncture technique, the right radial artery was accessed. A 6-Kyrgyz x 11 cm Hydrophilic sheath was advanced. Verapamil was given through the sheath and heparin was administered intravenously. Bilateral selective coronary angiography was then performed using 6-Kyrgyz JL3.5 and JR5 diagnostic catheters. Catheters were [...] Mcintosh M.D. Date Trans: 04/27/2018 07:59 A/emily DN_JN:[id number] cc: Gianfranco Lau D.O. [address] [facility] [address]GlmnplVldOhioHealth Hardin Memorial HospitalLIVER BATTERYon 75-72-1262Xrscqld mass conc3.4 g/dLLow3.5-5.7The [facility] CenterComment on above:Order Comment: No: Do not add to previous drawPerformed By: #### 32820, 93660, 58299 #### [facility] [address] [place] [address], USAALKALINE ITWIYF315 IU/BIduupp41-656Yym [facility] CenterComment on above:Order Comment: No: Do not add to previous draw Performed By: #### 58712, 15314, 36738 #### [facility] [address] [place] [address], USAALT enzyme act/vol9 U/LNormal7-52The [facility] CenterComment on above:Order Comment: No: Do not add to previous draw Performed By: #### 65046, 86017, 22721 #### [facility] [address] [place] [address], USAAST enzyme act/vol9 U/IIbn50-08Jld [facility] CenterComment on above:Order Comment: No: Do not add to previous draw Performed By: #### 65607, 22247, 88510 #### [facility] [address] [place] [address], USABilirubin mass conc0.2 mg/dLLow0.3-1.0The [facility] CenterComment on above:Order Comment: No: Do not add to previous drawPerformed By: #### 59696, 40703, 46033 #### [facility] [address] [place] [address], USABilirubin.direct mass conc0.0 mg/dLNormal0.0-0.2The [facility] CenterComment on above:Order Comment: No: Do not add to previous drawPerformed By: #### 19564, 02973, 53960 #### [facility] [address] [place] [address], USAProtein mass conc6.1 g/dLNormal6.0-8.3The [facility] CenterComment on above:Order Comment: No: Do not add to previous drawPerformed By: #### 40965, 21932, 46518 #### [facility] [address] [facility] [place] [address], USAMRI BRAIN W WO CONTRASTon 13-73-8286MRA BRAIN W WO CONTRAST [facility] Department of Radiology [address] [place] [id number] Patient Name: PATO CORRAL : 1960 Sex: F Age: Race: White Pt. Location: [id number] Patient Status: I Ordered Date: 04/27/2018 10:35:00 [...] findings. Electronically signed by:Ruth Yen. Transcribed by: [email or web address], User Resident: DIONY MOHR Electronically Signed by: RUTH YEN @ 04/28/2018 03:26 PM I personally read this/these film(s) with this [facility] HospitalComment on above:Order Comment: No: Do not add to previous drawPOC GLUCOSE LABon 16-86-4221Hgaoafu mass bbbn209 mg/oWPkdv63-268Xpo [facility] CenterComment on above:Performed By: #### 93982, 62185, 86089 #### [facility] [address] [place] [address], USAGlucose mass zvai313 mg/fLWrce23-468Iyf [facility] CenterComment on above:Performed By: #### 28251, 42792, 13527 #### [facility] [address] [place] [address], USAGlucose mass poel031 mg/aOFmba94-336Yoa [facility] CenterComment on above:Performed By: #### 80503, 62621, 62839 #### [facility] [address] [place] [address], USATYPE AND SCREENon 31-38-5081KNE INTERPRETATIONONoOhioHealth Hardin Memorial HospitalComment on above:Performed By: #### 72302, 33357, 19310 #### [facility] [address] [place] [address], USARH INTERPRETATIONPositiveNoOhioHealth Hardin Memorial HospitalComment on above:Performed By: #### 17361, 30566, 65587 #### [facility] [address] [place] [address], USAUFH HEPARIN ASSAYon 11-58-7116XQRXOROUZIJZLQ HEPARIN0.15 IU/mLCritically low0.30-0.70The [facility] CenterComment on above:Result Comment: Rivaroxaban and Apixaban will interfere with the anti Xa assay used to monitor UFH and LMWH. RESULTS CHECKED AND CALLED. ACCURATELY READ BACK BY GRETTA EDWARDS RN AT 2238Performed By: #### 10352, 85602, 60172 #### [facility] [address] [facility] [place] [address], USAUNFRACTIONATED HEPARIN<0.10Critically low0.30-0.70The [facility] CenterComment on above:Result Comment: Rivaroxaban and Apixaban will interfere with the anti Xa assay used to monitor UFH and LMWH. result calld to RODRIGO MCCLURE RN 1455Performed By: #### 83765, 16280, 85977 #### [facility] [address] [facility] [place] [address], USAUNFRACTIONATED HEPARIN<0.10Critically low0.30-0.70The [facility] CenterComment on above:Result Comment: Rivaroxaban and Apixaban will interfere with the anti Xa assay used to monitor UFH and LMWH. RESULTS CHECKED AND CALLED. ACCURATELY READ BACK BY MADALYN DAO RN AT 620Performed By: #### 78452, 44028, 55082 #### [facility] [address] [facility] [place] [address], USAUSV ARTERIAL DUPLEX CAROTID BILATERAL COMPLETEon 04-27-2018 USV ARTERIAL DUPLEX CAROTID BILATERAL COMPLETEUnChildren's Hospital for Rehabilitation Department of Radiology [address] [place] [address] Patient Name: PATO CORRAL : 1960 Sex: F Age: Race: White Pt. Location: [id number] Patient Status: I Ordered Date: 04/27/2018 8:00:00 AM Completed Date: 04/27/2018 10:29 AM Requesting Provider: KAREN RUVALCABA Attending Provider: FELIPE HUGO Report Copy To: Signs & Symptoms: CERVICAL BRUIT History: Patient history not available Comments: R/O Stenosis Exam: USV ARTERIAL DUPLEX CAROTID BILATERAL COMPLETE Final Bilateral Cerebrovascular Duplex Scan Patient: PATO CORRAL : 1960 Study Date: 04/27/2018 08:17:37 Referring Physician: KAREN RUVALCABA Key Attendant: DIANA GARCIA RDMS Ordering Physician: KAREN RUVALCABA Primary Care Physician: GIANFRANCO LAU Patient Location: Inpatient Ordering Diagnosis: CERVICAL BRUIT Indications: CPT Code: 34503 Cerebrovascular Duplex Scan Technique: The carotid arteries, [...] Date: 04/27/2018 08:17:37 Page 2 of 2 [address] [place] [address] Noninvasive Vascular Laboratory Division of Vascular and Endovascular Surgery [facility] [phone] [facility] [phone] Transcribed by: InterfaceUserClarisse Resident: Electronically Signed by: SHIRA BENITES @ 04/30/2018 03:37 [facility] ClinicComment on above:Order Comment: No: Do not add to previous drawUSV VENOUS LOWER EXTREMITY MAPPING BILATERALon 82-82-5765FGY VENOUS LOWER EXTREMITY MAPPING BILATERALKettering Health – Soin Medical Center Department of Radiology [address] [place] [id number] Patient Name: PATO CORRAL : 1960 Sex: F Age: Race: White Pt. Location: [address] [place] [address] Patient Status: I Ordered Date: 04/27/2018 8:00:00 [...] Date: 04/27/2018 09:07:49 Referring Physician: KAREN RUVALCABA Key Attendant: DIANA GARCIA RDMS Ordering Physician: KAREN RUVALCABA Primary Care Physician: GIANFRANCO LAU Patient Location: Inpatient Ordering Diagnosis: PERIPHERAL VASCULAR DISEASE Indications: CPT Code: 51452J LE Saphenous Vein Mapping Technique: The greater [...] Page 2 of 2 [address] [place] [address] Noninvasive Vascular Laboratory Division of Vascular and Endovascular Surgery [facility] [phone] Clinical [phone] Transcribed by: InterfaceUser, Clarisse Resident: Electronically Signed by: SOHAIL TEJEDA @ 04/30/2018 02:46 PMNormalThe [facility] CenterComment on above:Order Comment: No: Do not add to previous draw*MRSA/MSSA DNA NASALon 04-26-2018*MRSA/MSSA DNA NASAL Clinical Report: (D) Specimen: NASAL SWAB Collected: 04/26/2018 17:30 Status: Final Last Updated: 04/27/2018 15:27 MSSA DNA (Final) Negative MRSA DNA (Final) NegativeNoOhioHealth Hardin Memorial HospitalComment on above:Performed By: #### 56102, 00016, 67299 #### [facility] [address] [place] [address], [facility] HOSPITALAPTBanner [facility]ayson [facility] 10-49-6737pZSJ Coag time (Bld)168.6 sCritically high 25.0-35.0The [facility] CenterComment on above:Order Comment: No: Do [...] IN THE PRESENCE OF HEPARIN.Performed By: #### 71685, 18527, 78077 #### [facility] [address] [place] [address], [facility] COMPLETE BLOOD COUNTon 37-04-0955Ybnrtbvjngr distribution width Ratio (RBC)14.2 %Nxtkdc22.5-15.0The [facility] CenterComment on above:Order Comment: No: Do not add to previous draw Performed By: #### 37682, 82607, 71717 #### [facility] [address] [place] [address], [facility] HOSPITALHematocrit Volume Fraction (Bld)36.5 %Jnrnev27.0-45.0The [facility] CenterComment on above:Order Comment: No: Do not add to previous drawPerformed By: #### 55094, 13952, 01097 #### [facility] [address] [place] [address], [facility] HOSPITALHemoglobin mass conc (Bld)11.6 g/dLLow12.0-15.0The [facility] CenterComment on above:Order Comment: No: Do not add to previous drawPerformed By: #### 51627, 95722, 33111 #### [facility] [address] [place] [address], [facility] HOSPITALMCH Entitic mass (RBC)25.1 pgLow27.0-33.0The [facility] CenterComment on above:Order Comment: No: Do not add to previous drawPerformed By: #### 64891, 41746, 13248 #### [facility] [address] [place] [address], [facility] EL[facility] CITYHC mass conc (RBC)31.8 g/dLLow32.0-35.0The [facility] CenterComment on above:Order Comment: No: Do not add to previous drawPerformed By: #### 75727, 11716, 39389 #### [facility] [address] [place] [address], [facility] EL[facility] CITYV Entitic volume (RBC)79.0 fLLow82.0-98.0The [facility] CenterComment on above:Order Comment: No: Do not add to previous drawPerformed By: #### 19143, 55949, 94497 #### [facility] [address] [place] [address], [facility] HOSPITALNucleated RBC/100 WBC Ratio (Bld)0 %Normal0-0The [facility] CenterComment on above:Order Comment: No: Do not add to previous drawPerformed By: #### 58962, 60212, 57333 #### [facility] [address] [place] [address], [facility] HOSPITALPLAT SXK035 10*3/lYBquchh734-358Xdi [facility] CenterComment on above:Order Comment: No: Do not add to previous draw Performed By: #### 36568, 02831, 83434 #### [facility] [address] [place] [address], [facility] HOSPITALRBC #/vol (Bld)4.62 10*6/uLNormal3.80-5.00The [facility] CenterComment on above:Order Comment: No: Do not add to previous drawPerformed By: #### 62821, 00286, 82815 #### [facility] [address] [place] [address], [facility] HOSPITALWBC #/vol (Bld)7.32 10*3/uLNormal4.00-10.60The [facility] CenterComment on above:Order Comment: No: Do not add to previous drawPerformed By: #### 35168, 14102, 08882 #### [facility] [address] [place] [address], [facility] HOSPITALErythrocyte distribution width Ratio (RBC)14.4 %Normal 11.5-15.0The [facility] CenterComment on above:Order Comment: No: Do not add to previous drawPerformed By: #### 11847, 53335, 19848 #### [facility] [address] [place] [address], [facility] HOSPITALHematocrit Volume Fraction (Bld)35.6 %Low36.0-45.0The [facility] CenterComment on above:Order Comment: No: Do not add to previous drawPerformed By: #### 86704, 24670, 79719 #### [facility] [address] [place] [address], [facility] HOSPITALHemoglobin mass conc (Bld)11.7 g/dLLow12.0-15.0The [facility] CenterComment on above:Order Comment: No: Do not add to previous drawPerformed By: #### 19729, 11052, 20312 #### [facility] [address] [place] [address], [facility] CITYH Entitic mass (RBC)25.7 pgLow27.0-33.0The [facility] CenterComment on above:Order Comment: No: Do not add to previous drawPerformed By: #### 61253, 80912, 09567 #### [facility] [address] [place] [address], [facility] HOSPITALMCHC mass conc (RBC)32.9 g/hAAnmadf47.0-35.0The [facility] CenterComment on above:Order Comment: No: Do not add to previous drawPerformed By: #### 81212, 29572, 10993 #### [facility] [address] [place] [address], USAMCV Entitic volume (RBC)78.1 fLLow82.0-98.0The [facility] CenterComment on above:Order Comment: No: Do not add to previous drawPerformed By: #### 20601, 15610, 55692 #### [facility] [address] [place] [address], USANucleated RBC/100 WBC Ratio (Bld)0 %Normal0-0The [facility] CenterComment on above:Order Comment: No: Do not add to previous drawPerformed By: #### 56036, 40316, 65990 #### [facility] [address] [facility] [place] [address], USAPLAT JJP449 10*3/nQVkeqfo035-125Xia [facility] CenterComment on above:Order Comment: No: Do not add to previous draw Performed By: #### 43195, 86848, 27510 #### [facility] [address] [facility] [place] [address], [facility] HOSPITALRBC #/vol (Bld)4.56 10*6/uLNormal3.80-5.00The [facility] CenterComment on above:Order Comment: No: Do not add to previous drawPerformed By: #### 43358, 04800, 41270 #### [facility] [address] [facility] [place] [address], USAWBC #/vol (Bld)7.95 10*3/uLNormal4.00-10.60The [facility] CenterComment on above:Order Comment: No: Do not add to previous drawPerformed By: #### 22852, 56036, 25534 #### [facility] [address] [facility] [place] [address], USACHEST AND LATERALon 43-81-5492JQGPR AND [facility] Department of Radiology [address] [place] [phone] Patient Name: PATO CORRAL : 1960 Sex: F Age: Race: White Pt. Location: [id number] Patient Status: I Ordered Date: 04/25/2018 8:55:00 [...] chest. Electronically signed by:Antwon Groves. Transcribed by: [email or web address], User Resident: Electronically Signed by: ANTWON GROVES @ 04/26/2018 08:21 AMNormalSycamore Medical CenterComment on above:Order Comment: R/O Cardiomegaly, when patient is stableCT BRAIN WO CONTRASTon 94-18-4784JU BRAIN WO CONTRASTUnChildren's Hospital for Rehabilitation Department of Radiology [address] [place] [phone] Patient Name: PATO CORRAL : 1960 Sex: F Age: Race: White Pt. Location: [id number] Patient Status: I Ordered Date: 04/26/2018 5:25:00 [...] findings. Electronically signed by:Ruth Yen. Transcribed by: [email or web address], User Resident: FERN JOSEPH Electronically Signed by: RUTH YEN @ 04/27/2018 03:17 PM I personally read this/these film(s) with this residentMercy Health Lorain HospitalComment on above:Order Comment: No: Do not add to previous drawLIPID PROFILEon 12-55-9999Tdwezggkdth in HDL mass conc39 mg/jNYbnjxv82-91SmlSycamore Medical CenterComment on above:Result Comment: Slight variation in normal range could be due to gender and/or age. HDL CHOLESTEROL REFERENCE RANGE: 20 years and older Cardiovascular Risk > or =60 mg/dL Desirable 40 TO 59 mg/dL Low Risk <40 mg/dL High RiskPerformed By: #### 88793, 55389, 45074 #### [facility] [address] [place] [address], USACholesterol in LDL mass conc54 mg/dLNormal0-130Sycamore Medical CenterComment on above:Result Comment: LDL IS A CALCULATION LDL IS ONLY VALID IF THE TRIG IS LESS THAN 400.Performed By: #### 26546, 84935, 87219 #### [facility] [address] [place] [address], USACholesterol mass bdxi901 mg/tBHstp845-327Swr [facility] CenterComment on above:Result Comment: CHOLESTEROL REFERENCE RANGE: 20 YEARS AND OLDER CARDIOVASCULAR RISK Less than 200 mg/dl Low Risk 200 to 239 mg/dl Borderline Risk 240 mg/dl and greater High RiskPerformed By: #### 05097, 63114, 34784 #### [facility] [address] [place] [address], USACholesterol.total/Cholesterol in HDL mass ratio7.2 {ratio} High.0-4.5The [facility] CenterComment on above:Performed By: #### 42661, 53099, 30310 #### [facility] [address] [place] [address], USANON-HDL SCVMDWSCSLA230 mg/dLNormalThe [facility] CenterComment on above:Performed By: #### 37752, 62325, 70731 #### [facility] [address] [place] [address], USATriglyceride mass phoq178 mg/fSZsyw88-301Sur [facility] CenterComment on above:Result Comment: TRIGLYCERIDE REFERENCE RANGE: 20 YEARS AND OLDER CARDIOVASCULAR RISK LESS THAN 150 mg/dl LOW RISK 150 TO 199 mg/dl BORDERLINE RISK 200 mg/dl AND GREATER HIGH RISKPerformed By: #### 15016, 86669, 92707 #### [facility] [address] [facility] [place] [address], USAVLDL UPDH062 mg/dLHigh0-40The [facility] CenterComment on above:Performed By: #### 26938, 38801, 99288 #### [facility] [address] [facility] [place] [address], USAPOC GLUCOSE LABon 21-91-0894Vlfkmus mass thwx944 mg/dLHigh 70-100The [facility] CenterComment on above:Performed By: #### 79891, 14206, 91252 #### [facility] [address] [facility] [place] [address], USAGlucose mass zcsa981 mg/eMEmvn68-537Zuq [facility] CenterComment on above:Performed By: #### 02577, 61711, 87379 #### [facility] [address] [facility] [place] [address], USAGlucose mass wwmn619 mg/gLLuuy59-857Uls [facility] [facility] CenterComment on above:Performed By: #### 96296, 54628, 05157 #### [facility] [address] [place] [address], USAGlucose mass zzhg237 mg/eLUnho19-649Ohf [facility] CenterComment on above:Performed By: #### 58565, 66888, 50970 #### [facility] [address] [place] [address], USAPROTHROMBIN TIMEon 30-60-0533PMK Coag RelTime (PPP)1.01 {INR}Normal0.91-1.16The [facility] CenterComment on above: Order Comment: No: [...] OPTIMAL THERAPEUTIC RANGE. CHEST 1995;108:231S-246S.Performed By: #### 55395, 28206, 47514 #### [facility] [address] [place] [address], USAProthrombin time (PT) Coag time (PPP)13.3 aAskipt35.3-14.8 The [facility] CenterComment on above:Order Comment: No: Do not add to previous drawResult Comment: ALL RESULTS MUST BE INTERPRETED WITH RESPECT TO BLOOD DRAWING ARTIFACT OR DILUTION ERROR OF ANTICOAGULANT AT THE TIME OF SAMPLING.Performed By: #### 84548, 42005, 69943 #### [facility] [address] [place] [address], USATROPONIN-Ion 41-67-6886Ofnsaifl I.cardiac mass conc0.01 ng/mLNormal0.00-0.04The [facility] CenterComment on above: Order Comment: No: Do not add to previous drawResult Comment: REFERENCE RANGES: 0.00 - 0.04 ng/ml NORMAL 0.05 - 0.50 ng/ml INDETERMINATE > 0.50 ng/ml CONSISTENT WITH AN M.I.Performed By: #### 82960, 12573, 24520 #### [facility] [address] [place] [address], USATroponin I.cardiac mass conc0.01 ng/mLNormal0.00-0.04The [facility] CenterComment on above:Order Comment: No: Do not add to previous drawResult Comment: REFERENCE RANGES: 0.00 - 0.04 ng/ml NORMAL 0.05 - 0.50 ng/ml INDETERMINATE > 0.50 ng/ml CONSISTENT WITH AN M.I.Performed By: #### 79162, 55439, 08666 #### [facility] [address] [facility] [place] [address], USAUFH HEPARIN ASSAYon 39-32-9860RYGHDHSAKGMGGX HEPARIN<0.10 Critically low0.30-0.70The [facility] CenterComment on above: Result Comment: Rivaroxaban and Apixaban will interfere with the anti Xa assay used to monitor UFH and LMWH. RESULTS CHECKED AND CALLED. ACCURATELY READ BACK BY MADALYN HOLLIDAY RN AT 21:45Performed By: #### 59695, 65041, 10873 #### [facility] [address] [facility] [place] [address], USAUNFRACTIONATED HEPARIN>1.00Critically high0.30-0.70The [facility] CenterComment on above:Order Comment: No: Do not add to previous drawResult Comment: Rivaroxaban and Apixaban will interfere with the anti Xa assay used to monitor UFH and LMWH. UFH = 1.12 UFH added per protocol RESULTS CHECKED AND CALLED. ACCURATELY READ BACK BY ANDREAS BERNARD RN at 16:26Performed By: #### 22382, 16348, 06152 #### [facility] [address] [place] [address], USAUNFRACTIONATED HEPARIN0.14 IU/mLCritically low0.30-0.70The [facility] CenterComment on above:Result Comment: Rivaroxaban and Apixaban will interfere with the anti Xa assay used to monitor UFH and LMWH. Results called. Accurately read back by ANDREAS BERNARD RN AT 0800Performed By: #### 83746, 06822, 71077 #### [facility] [address] [place] [address], USAAPTTon 66-25-4594dTEZ Coag time (Bld)26.8 aPkhhui70.0-35.0 The [facility] CenterComment on above:Order Comment: No: Do [...] BE USED FOR THIS PURPOSE.Performed By: #### 35117 #### [facility] [address] [place] [address], USABASIC METABOLIC PANELon 12-65-5877Ydhxycz mass conc9.1 mg/dLNormal8.6-10.3The [facility] CenterComment on above:Order Comment: No: Do not add to previous drawPerformed By: #### 48657 #### [facility] [address] [place] [address], USAChloride molar oukv951 mmol/MIaulos26-860Nnr [facility] CenterComment on above:Order Comment: No: Do not add to previous drawPerformed By: #### 62519 #### [facility] [address] [place] [address], USACO2 molar conc24 mmol/BZokltq31-69Tou [facility] CenterComment on above:Order Comment: No: Do not add to previous draw Performed By: #### 32995 #### [facility] [address] [place] [address], USACreatinine mass conc0.70 mg/dLNormal0.60-1.20The [facility] CenterComment on above:Order Comment: No: Do not add to previous drawPerformed By: #### 77355 #### [facility] [address] [place] [address], USAGFR/1.73 sq M predicted among blacks MDRD vol rate/area (S/P/Bld)mL/min/{1.73_m2}Normal>60The [facility] CenterComment on above:Order Comment: No: Do not add to previous drawPerformed By: #### 53200 #### [facility] [address] [place] [address], USAGFR/1.73 sq M predicted among non-blacks MDRD vol rate/area (S/P/Bld)mL/min/{1.73_m2}Normal>60The [facility] Comment on above:Order Comment: No: Do not add to previous drawPerformed By: #### 06888 #### [facility] [address] [place] [address], USAGlucose mass mezi436 mg/vLVyhp71-474Fhk [facility] CenterComment on above:Order Comment: No: Do not add to previous drawPerformed By: #### 05178 #### [facility] [address] [place] [address], USAPotassium molar conc3.5 mmol/LNormal3.5-5.1The [facility] CenterComment on above:Order Comment: No: Do not add to previous drawPerformed By: #### 90780 #### [facility] [address] [facility] [place] [address], USASodium molar zqxa595 mmol/HZlq726-118Qfm [facility] CenterComment on above:Order Comment: No: Do not add to previous drawPerformed By: #### 22410 #### [facility] [address] [place] [address], USAUrea nitrogen mass conc10 mg/dLNormal7-25The [facility] CenterComment on above:Order Comment: No: Do not add to previous drawPerformed By: #### 50318 #### [facility] [address] [facility] [place] [address], [facility]PITALCBC W/DIFFon 28-84-7818XBX BASOPHILS0.0 10*3/uLNormal 0.0-0.2The [facility] CenterComment on above:Performed By: #### 25325 #### [facility] [address] [facility] [place] [address], [facility] HOSPITALABS IMM GRANS0.0 10*3/uLNormal0.0-0.2The [facility] CenterComment on above:Performed By: #### 07726 #### [facility] [address] [facility] [place] [address], [facility] HOSPITALABS NEUTROPHILS5.2 10*3/uLNormal1.6-7.6The [facility] CenterComment on above:Performed By: #### 39437 #### [facility] [address] [facility] [place] [address], USABasophils #/vol (Bld)0.4 %Normal0.0-1.0The [facility] CenterComment on above:Performed By: #### 58219 #### [facility] [address] [facility] [place] [address], USAEosinophils #/vol (Bld)0.4 10*3/uLNormal0.0-0.5The [facility] CenterComment on above:Performed By: #### 62430 #### [facility] [address] [place] [address], USAEosinophils/100 WBC (Bld)3.7 %Normal0.0-6.0The [facility] CenterComment on above:Performed By: #### 10705 #### [facility] [address] [facility] [place] [address], USAErythrocyte distribution width Ratio (RBC)14.4 %Normal 11.5-15.0The [facility] CenterComment on above:Performed By: #### 30191 #### [facility] [address] [place] [address], [facility] HOSPITALHematocrit Volume Fraction (Bld)35.9 %Low36.0-45.0The [facility] CenterComment on above:Performed By: #### 08988 #### [facility] [address] [facility] [place] [address], [facility] HOSPITALHemoglobin mass conc (Bld)11.7 g/dLLow12.0-15.0The [facility] CenterComment on above:Performed By: #### 07039 #### [facility] [address] [facility] [place] [address], USAIMMATURE GRANS0.2 %Normal0.0-1.0The [facility] CenterComment on above:Performed By: #### 17539 #### [facility] [address] [facility] [place] [address], USALymphocytes #/vol (Bld)3.4 10*3/uLNormal1.2-4.0The [facility] CenterComment on above:Performed By: #### 10135 #### [facility] [address] [place] [address], USALymphocytes/100 WBC (Bld)35.1 %Rzgqnp86.0-45.0The [facility] CenterComment on above:Performed By: #### 06768 #### [facility] [address] [place] [address], [facility] Entitic mass (RBC)25.2 pgLow27.0-33.0The [facility] CenterComment on above:Performed By: #### 50631 #### [facility] [address] [place] [address], [facility] EL[facility] CITYHC mass conc (RBC)32.6 g/xLMgrwlh51.0-35.0The [facility] CenterComment on above:Performed By: #### 06914 #### [facility] [address] [place] [address], [facility] Entitic volume (RBC)77.4 fLLow82.0-98.0The [facility] CenterComment on above:Performed By: #### 42478 #### [facility] [address] [place] [address], [facility] HOSPITALMonocytes #/vol (Bld)0.8 10*3/uLNormal0.1-1.0The [facility] CenterComment on above:Performed By: #### 89406 #### [facility] [address] [place] [address], USAMONOS7.7 %Normal5.0-12.0The [facility] CenterComment on above:Performed By: #### 03145 #### [facility] [address] [place] [address], [facility] HOSPITALNeutrophils/100 WBC (Bld)52.9 %Uwgznd22.0-72.0The [facility] CenterComment on above:Performed By: #### 61845 #### [facility] [address] [place] [address], USANucleated RBC/100 WBC Ratio (Bld)0 %Normal0-0The [facility] CenterComment on above:Performed By: #### 63009 #### [facility] [address] [place] [address], [facility] HOSPITALPLAT VLF019 10*3/bAHkabrg400-674Ihc [facility] CenterComment on above:Performed By: #### 28169 #### [facility] [address] [place] [address], [facility] HOSPITALRBC #/vol (Bld)4.64 10*6/uLNormal3.80-5.00The [facility] CenterComment on above:Performed By: #### 26440 #### [facility] [address] [place] [address], [facility] HOSPITALWBC #/vol (Bld)9.81 10*3/uLNormal4.00-10.60The [facility] CenterComment on above:Performed By: #### 88709 #### [facility] [address] [place] [address], [facility] HOSPITALMAGNESIUM BLOODon 67-43-1528Wcligzjky mass conc1.7 mg/dLLow 1.9-2.7The [facility] CenterComment on above:Order Comment: No: Do not add to previous drawPerformed By: #### 08653 #### [facility] [address] [facility] [place] [address], [facility] HOSPITALPOC GLUCOSE LABon 61-04-3593Apactpa mass xvsf686 mg/dLHigh 70-100The [facility] CenterComment on above:Performed By: #### 32140, 60019, 18701 #### [facility] [address] [place] [address], [facility] HOSPITALPROTHROMBIN TIMEon 26-36-9134OXZ Coag RelTime (PPP)0.95 {INR}Normal0.91-1.16The [facility] CenterComment on above: Order Comment: No: [...] OPTIMAL THERAPEUTIC RANGE. CHEST 1995;108:231S-246S.Performed By: #### [id number] #### [facility] [address] [facility] [place] [address], [facility] HOSPITALProthrombin time (PT) Coag time (PPP)12.7 yYetopr42.3-14.8 The [facility] CenterComment on above:Order Comment: No: Do not add to previous drawResult Comment: ALL RESULTS MUST BE INTERPRETED WITH RESPECT TO BLOOD DRAWING ARTIFACT OR DILUTION ERROR OF ANTICOAGULANT AT THE TIME OF SAMPLING.Performed By: #### 92378 #### [facility] [address] [facility] [place] [address], USATROPONIN-Ion 20-19-2067Bezdpcgw I.cardiac mass conc0.01 ng/mLNormal0.00-0.04The [facility] CenterComment on above: Order Comment: No: Do not add to previous drawResult Comment: REFERENCE RANGES: 0.00 - 0.04 ng/ml NORMAL 0.05 - 0.50 ng/ml INDETERMINATE > 0.50 ng/ml CONSISTENT WITH AN M.I.Performed By: #### 31902 #### [facility] [address] [facility] [place] [address], USATSH3 WITH REFLEXon 60-55-3627G0 free mass conc0.63 ng/dLLow 0.71-1.85The [facility] CenterComment on above:Performed By: #### 58248 #### [facility] [address] [place] [id number], USATSH 3RD GENERATION0.85 uIU/mLNormal0.34-5.60The [facility] CenterComment on above:Performed By: #### 99594 #### [facility] [address] [place] [address], USAPOC GLUCOSE LABon 03-16-4872Dpwstxm mass xjlu669 mg/dLHigh 70-100The [facility] CenterComment on above:Performed By: #### 56601 #### [facility] [address] [facility] [place] [address], USAGlucose mass pdlz554 mg/wSTquu28-673Oxo [facility] CenterComment on above:Performed By: #### 60909 #### [facility] [address] [facility] [place] [address], USACBC W/DIFFon 65-12-5421CKP BASOPHILS0.0 10*3/uLNormal 0.0-0.2The [facility] CenterComment on above:Order Comment: No: Do not add to previous drawPerformed By: #### 84470 #### [facility] [address] [facility] [place] [address], USAABS IMM GRANS0.0 10*3/uLNormal0.0-0.2The [facility] CenterComment on above:Order Comment: No: Do not add to previous drawPerformed By: #### 15407 #### [facility] [address] [facility] [place] [address], USAABS NEUTROPHILS2.6 10*3/uLNormal1.6-7.6The [facility] CenterComment on above:Order Comment: No: Do not add to previous drawPerformed By: #### 97211 #### [facility] [address] [place] [address], USABasophils #/vol (Bld)0.4 %Normal0.0-1.0The [facility] CenterComment on above:Order Comment: No: Do not add to previous drawPerformed By: #### 82851 #### [facility] [address] [place] [address], USAEosinophils #/vol (Bld)0.3 10*3/uLNormal0.0-0.5The [facility] CenterComment on above:Order Comment: No: Do not add to previous drawPerformed By: #### 32030 #### [facility] [address] [place] [address], USAEosinophils/100 WBC (Bld)5.2 %Normal0.0-6.0The [facility] CenterComment on above:Order Comment: No: Do not add to previous drawPerformed By: #### 60480 #### [facility] [address] [facility] [place] [address], USAErythrocyte distribution width Ratio (RBC)13.8 %Normal 11.5-15.0The [facility] CenterComment on above:Order Comment: No: Do not add to previous drawPerformed By: #### 27720 #### [facility] [address] [facility] [place] [address], USAHematocrit Volume Fraction (Bld)36.1 %Nynqzv51.0-45.0The [facility] CenterComment on above:Order Comment: No: Do not add to previous drawPerformed By: #### 28606 #### [facility] [address] [facility] [place] [address], USAHemoglobin mass conc (Bld)11.5 g/dLLow12.0-15.0The [facility] CenterComment on above:Order Comment: No: Do not add to previous drawPerformed By: #### 01821 #### [facility] [address] [place] [address], USAIMMATURE GRANS0.4 %Normal0.0-1.0The [facility] CenterComment on above:Order Comment: No: Do not add to previous draw Performed By: #### 75655 #### [facility] [address] [place] [address], USALymphocytes #/vol (Bld)1.6 10*3/uLNormal1.2-4.0The [facility] CenterComment on above:Order Comment: No: Do not add to previous drawPerformed By: #### 38801 #### [facility] [address] [place] [address], USALymphocytes/100 WBC (Bld)31.6 %Ogighx49.0-45.0The [facility] CenterComment on above:Order Comment: No: Do not add to previous drawPerformed By: #### 66012 #### [facility] [address] [place] [address], [facility] Entitic mass (RBC)25.7 pgLow27.0-33.0The [facility] CenterComment on above:Order Comment: No: Do not add to previous drawPerformed By: #### 91363 #### [facility] [address] [place] [address], [facility] EL[facility] CITYHC mass conc (RBC)31.9 g/dLLow32.0-35.0The [facility] CenterComment on above:Order Comment: No: Do not add to previous drawPerformed By: #### 94207 #### [facility] [address] [place] [address], [facility] EL[facility] CITYV Entitic volume (RBC)80.6 fLLow82.0-98.0The [facility] CenterComment on above:Order Comment: No: Do not add to previous drawPerformed By: #### 28798 #### [facility] [address] [place] [address], USAMonocytes #/vol (Bld)0.5 10*3/uLNormal0.1-1.0The [facility] CenterComment on above:Order Comment: No: Do not add to previous drawPerformed By: #### 62148 #### [facility] [address] [place] [address], USAMONOS9.3 %Normal5.0-12.0The [facility] CenterComment on above:Order Comment: No: Do not add to previous drawPerformed By: #### 53352 #### [facility] [address] [place] [address], USANeutrophils/100 WBC (Bld)53.1 %Ndagle36.0-72.0The [facility] CenterComment on above:Order Comment: No: Do not add to previous drawPerformed By: #### 23638 #### [facility] [address] [place] [address], USANucleated RBC/100 WBC Ratio (Bld)0 %Normal0-0The [facility] CenterComment on above:Order Comment: No: Do not add to previous drawPerformed By: #### 47101 #### [facility] [address] [place] [address], USAPLAT UVI075 10*3/yTQkrlij604-178Sum [facility] CenterComment on above:Order Comment: No: Do not add to previous draw Performed By: #### 85277 #### [facility] [address] [place] [address], USARBC #/vol (Bld)4.48 10*6/uLNormal3.80-5.00The [facility] CenterComment on above:Order Comment: No: Do not add to previous drawPerformed By: #### 55271 #### [facility] [address] [place] [address], USAWBC #/vol (Bld)4.97 10*3/uLNormal4.00-10.60The [facility] CenterComment on above:Order Comment: No: Do not add to previous drawPerformed By: #### 89190 #### [facility] [address] [place] [address], USAHEMOGLOBIN A1Con 22-00-3912Tukjjlwapg A1c/Hemoglobin.total mass fraction (Bld)6.8 %High4.0-6.0The [facility] Comment on above:Order Comment: No: Do not add to previous drawPerformed By: #### 51096 #### [facility] [address] [place] [address], USAHemoglobin A1c/Hemoglobin.total mass fraction (Bld)148 mg/mIWmdw61-685Cgq [facility] CenterComment on above:Order Comment: No: Do not add to previous drawPerformed By: #### 55178 #### [facility] [address] [place] [address], USAMAGNESIUM BLOODon 62-59-7711Gpsgutwtr mass conc1.8 mg/dLLow 1.9-2.7The [facility] CenterComment on above:Performed By: #### 86189 #### [facility] [address] [place] [address], USAPOC GLUCOSE LABon 71-22-5272Ouxblak mass feje696 mg/dLHigh 70-100The [facility] CenterComment on above:Performed By: #### 46251 #### [facility] [address] [place] [address], USAGlucose mass qodl104 mg/sDCkkr42-444Crc [facility] CenterComment on above:Performed By: #### 69860 #### [facility] [address] [place] [address], USAGlucose mass zbqi180 mg/wEGxpb03-981Olg [facility] CenterComment on above:Performed By: #### 78112 #### [facility] [address] [place] [address], [facility] HOSPITALGlucose mass gqxg298 mg/rGOxbi99-268Kkz [facility] CenterComment on above:Performed By: #### 03288 #### [facility] [address] [place] [address], USATROPONIN-Ion 50-29-2180Mrftunpy I.cardiac mass conc0.02 ng/mLNormal0.00-0.04The [facility] CenterComment on above: Order Comment: No: Do not add to previous drawResult Comment: REFERENCE RANGES: 0.00 - 0.04 ng/ml NORMAL 0.05 - 0.50 ng/ml INDETERMINATE > 0.50 ng/ml CONSISTENT WITH AN M.I.Performed By: #### 88077 #### [facility] [address]*BLOOD CULTUREon 77-08-6614Seasetmp identified Cx Nom (Bld) Clinical Report: (D) Specimen: BLOOD CULTURE Collected: 03/20/2018 11:20 Status: Final Last Updated: 03/26/2018 06:07 (1) x2 CULT RES (Final) No Growth Day 5NoOhioHealth Hardin Memorial HospitalComment on above: Order Comment: No: Do not add to previous drawPerformed By: #### [id number] #### [facility] [address] [place] [address], [facility]*RAPID FLU AANDB BY MOLECULARon 03-20-2018*RAPID FLU AANDB BY MOLECULARClinical Report: (D) Specimen: NASAL SWAB Collected: 03/20/2018 16:00 Status: Final Last Updated: 03/20/2018 16:52 FLUA RNA (Final) Negative FLUB RNA (Final) NegativeNoOhioHealth Hardin Memorial HospitalComment on above:Performed By: #### [id number] #### [facility] [address] [place] [id number], USABNP (B-TYPE NATRIURETIC PEPTIDE)on 15-80-4130Zsaorntvtrn peptide B mass conc (Bld)40 pg/mLNormal0-100The [facility] CenterComment on above:Order Comment: No: Do not add to previous drawResult Comment: Given the appropriate clinical setting a BNP result of >100 pg/mL indicates congestive heart failure.Performed By: #### [id number] #### [facility] [address] [facility] [place] [place] [address], [facility]OSPITALCBC W/DIFFon 59-54-1811QNH BASOPHILS0.0 10*3/uLNormal 0.0-0.2The [facility] CenterComment on above:Order Comment: No: Do not add to previous drawPerformed By: #### [id number] #### [facility] [address] [place] [address], [facility] HOSPITALABS IMM GRANS0.1 10*3/uLNormal0.0-0.2The [facility] CenterComment on above:Order Comment: No: Do not add to previous drawPerformed By: #### 69251 #### [facility] [address] [place] [address], USAABS NEUTROPHILS5.7 10*3/uLNormal1.6-7.6The [facility] CenterComment on above:Order Comment: No: Do not add to previous drawPerformed By: #### 61794 #### [facility] [address] [place] [address], USABasophils #/vol (Bld)0.3 %Normal0.0-1.0The [facility] CenterComment on above:Order Comment: No: Do not add to previous drawPerformed By: #### 01400 #### [facility] [address] [facility] [place] [address], USAEosinophils #/vol (Bld)0.1 10*3/uLNormal0.0-0.5The [facility] CenterComment on above:Order Comment: No: Do not add to previous drawPerformed By: #### 86960 #### [facility] [address] [facility] [place] [address], USAEosinophils/100 WBC (Bld)1.4 %Normal0.0-6.0The [facility] CenterComment on above:Order Comment: No: Do not add to previous drawPerformed By: #### [id number] #### [facility] [address] [facility] [place] [address], USAErythrocyte distribution width Ratio (RBC)14.0 %Normal 11.5-15.0The [facility] CenterComment on above:Order Comment: No: Do not add to previous drawPerformed By: #### [id number] #### [facility] [address] [place] [address], USAHematocrit Volume Fraction (Bld)36.4 %Pnmwep00.0-45.0The [facility] CenterComment on above:Order Comment: No: Do not add to previous drawPerformed By: #### [id number] #### [facility] [address] [facility] [place] [address], USAHemoglobin mass conc (Bld)11.6 g/dLLow12.0-15.0The [facility] CenterComment on above:Order Comment: No: Do not add to previous drawPerformed By: #### [id number] #### [facility] [address] [facility] [place] [address], USAIMMATURE GRANS0.7 %Normal0.0-1.0The [facility] CenterComment on above:Order Comment: No: Do not add to previous draw Performed By: #### [id number] #### [facility] [address] [facility] [place] [place] [address], USALymphocytes #/vol (Bld)1.1 10*3/uLLow1.2-4.0The [facility] CenterComment on above:Order Comment: No: Do not add to previous drawPerformed By: #### 24659 #### [facility] [address] [place] [address], USALymphocytes/100 WBC (Bld)14.5 %Low20.0-45.0The [facility] CenterComment on above:Order Comment: No: Do not add to previous drawPerformed By: #### 85090 #### [facility] [address] [place] [address], [facility]H Entitic mass (RBC)25.7 pgLow27.0-33.0The [facility] CenterComment on above:Order Comment: No: Do not add to previous drawPerformed By: #### 77724 #### [facility] [address] [place] [address], [facility] CITYHC mass conc (RBC)31.9 g/dLLow32.0-35.0The [facility] CenterComment on above:Order Comment: No: Do not add to previous drawPerformed By: #### 65553 #### [facility] [address] [place] [address], [facility] CITYV Entitic volume (RBC)80.5 fLLow82.0-98.0The [facility] CenterComment on above:Order Comment: No: Do not add to previous drawPerformed By: #### 04924 #### [facility] [address] [place] [address], USAMonocytes #/vol (Bld)0.4 10*3/uLNormal0.1-1.0The [facility] CenterComment on above:Order Comment: No: Do not add to previous drawPerformed By: #### 60324 #### [facility] [address] [place] [address], USAMONOS5.0 %Normal5.0-12.0The [facility] CenterComment on above:Order Comment: No: Do not add to previous drawPerformed By: #### 52448 #### [facility] [address] [place] [address], USANeutrophils/100 WBC (Bld)78.1 %High40.0-72.0The [facility] CenterComment on above:Order Comment: No: Do not add to previous drawPerformed By: #### 70136 #### [facility] [address] [place] [address], USANucleated RBC/100 WBC Ratio (Bld)0 %Normal0-0The [facility] CenterComment on above:Order Comment: No: Do not add to previous drawPerformed By: #### 23158 #### [facility] [address] [place] [address], USAPLAT IVC784 10*3/fVHzorao881-495Qdk [facility] CenterComment on above:Order Comment: No: Do not add to previous draw Performed By: #### 62386 #### [facility] [address] [place] [address], USARBC #/vol (Bld)4.52 10*6/uLNormal3.80-5.00The [facility] CenterComment on above:Order Comment: No: Do not add to previous drawPerformed By: #### 89575 #### [facility] [address] [place] [address], USAWBC #/vol (Bld)7.25 10*3/uLNormal4.00-10.60The [facility] CenterComment on above:Order Comment: No: Do not add to previous drawPerformed By: #### 14379 #### [facility] [address] [place] [address], USACOMP METABOLIC PANELon 05-35-9909Fxofzrf mass conc3.4 g/dL Low3.5-5.7The [facility] CenterComment on above:Order Comment: No: Do not add to previous drawPerformed By: #### 47144, 21442, 90885 #### [facility] [address] [place] [address], USAALKALINE KNYNLN06 IU/GSfutfc96-445Xzg [facility] CenterComment on above:Order Comment: No: Do not add to previous draw Performed By: #### 12905, 93021, 14624 #### [facility] [address] [place] [address], USAALT enzyme act/vol13 U/LNormal7-52The [facility] CenterComment on above:Order Comment: No: Do not add to previous draw Performed By: #### 75180, 57094, 20555 #### [facility] [address] [place] [address], USAAST enzyme act/vol10 U/MXqz82-09Plo [facility] CenterComment on above:Order Comment: No: Do not add to previous draw Performed By: #### 73123, 30742, 71653 #### [facility] [address] [place] [address], USABilirubin mass conc0.2 mg/dLLow0.3-1.0The [facility] CenterComment on above:Order Comment: No: Do not add to previous drawPerformed By: #### 54460, 75881, 58485 #### [facility] [address] [place] [address], USACalcium mass conc8.4 mg/dLLow8.6-10.3The [facility] CenterComment on above:Order Comment: No: Do not add to previous drawPerformed By: #### 55075, 37205, 89178 #### [facility] [address] [place] [address], USAChloride molar weyd424 mmol/ULvvgwy43-603Jkt [facility] CenterComment on above:Order Comment: No: Do not add to previous drawPerformed By: #### 04789, 76122, 59468 #### [facility] [address] [place] [address], USACO2 molar conc23 mmol/POmabjh95-83Jqt [facility] CenterComment on above:Order Comment: No: Do not add to previous draw Performed By: #### 51300, 88155, 83850 #### [facility] [address] [place] [address], USACreatinine mass conc0.83 mg/dLNormal0.60-1.20The [facility] CenterComment on above:Order Comment: No: Do not add to previous drawPerformed By: #### 55059, 64084, 29647 #### [facility] [address] [place] [address], USAGFR/1.73 sq M predicted among blacks MDRD vol rate/area (S/P/Bld)mL/min/{1.73_m2}Normal>60The [facility] CenterComment on above:Order Comment: No: Do not add to previous drawPerformed By: #### 28497, 57892, 41800 #### [facility] [address] [place] [address], USAGFR/1.73 sq M predicted among non-blacks MDRD vol rate/area (S/P/Bld)mL/min/{1.73_m2}Normal>60The [facility] Comment on above:Order Comment: No: Do not add to previous drawPerformed By: #### 23376, 94460, 04135 #### [facility] [address] [place] [address], USAGlucose mass vkwn817 mg/xFPqwn98-901Ntx [facility] CenterComment on above:Order Comment: No: Do not add to previous drawPerformed By: #### 50216, 58516, 36157 #### [facility] [address] [place] [address], USAPotassium molar conc3.7 mmol/LNormal3.5-5.1The [facility] CenterComment on above:Order Comment: No: Do not add to previous drawPerformed By: #### 38670, 36162, 47586 #### [facility] [address] [place] [address], USAProtein mass conc6.2 g/dLNormal6.0-8.3The [facility] CenterComment on above:Order Comment: No: Do not add to previous drawPerformed By: #### 50088, 22120, 18388 #### [facility] [address] [place] [address], USASodium molar rqeq491 mmol/PVmb728-175Pcn [facility] CenterComment on above:Order Comment: No: Do not add to previous drawPerformed By: #### 37794, 25046, 21755 #### [facility] [address] [place] [address], USAUrea nitrogen mass conc17 mg/dLNormal7-25The [facility] CenterComment on above:Order Comment: No: Do not add to previous drawPerformed By: #### 61362, 20706, 28738 #### [facility] [address] [place] [address], USALACTATE BLOODon 16-66-8217Kxcppkm molar conc1.3 mmol/L Normal0.5-2.2The [facility] CenterComment on above:Order Comment: No: Do not add to previous drawPerformed By: #### 72591 #### [facility] [address] [place] [address], USALIPASE BLOODon 61-71-3503Eospee enzyme act/vol18 Units/L Vrpryj71-58Uxn [facility] CenterComment on above:Performed By: #### 97738, 60507, 31822 #### [facility] [address] [place] [address], USAPOC GLUCOSE LABon 51-86-2780Nviheuf mass pelh995 mg/dLHigh 70-100The [facility] CenterComment on above:Performed By: #### 16574 #### [facility] [address] [place] [address], USAGlucose mass puoh687 mg/sRFygi76-027Jri [facility] CenterComment on above:Performed By: #### 68328 #### [facility] [address] [place] [address], USAGlucose mass uttf644 mg/sANlhn10-455Tss [facility] CenterComment on above:Performed By: #### 56375 #### [facility] [address] [place] [address], USAPROCALCITONINon 80-58-5656Vmkwqwo mass conc0.44 ng/mLHigh 0.00-0.10The [facility] CenterComment on above:Order Comment: No: Do [...] clinically indicated and initial PCT<0.5ng/mLPerformed By: #### 44573 #### [facility] [address] [place] [address], USATROPONIN-Ion 52-74-6601Hqckmhki I.cardiac mass conc0.02 ng/mLNormal0.00-0.04The [facility] CenterComment on above: Order Comment: No: Do not add to previous drawResult Comment: REFERENCE RANGES: 0.00 - 0.04 ng/ml NORMAL 0.05 - 0.50 ng/ml INDETERMINATE > 0.50 ng/ml CONSISTENT WITH AN M.I.Performed By: #### 59379 #### [facility] [address] [place] [address], USATroponin I.cardiac mass conc0.03 ng/mLNormal0.00-0.04The [facility] CenterComment on above:Order Comment: No: Do not add to previous drawResult Comment: REFERENCE RANGES: 0.00 - 0.04 ng/ml NORMAL 0.05 - 0.50 ng/ml INDETERMINATE > 0.50 ng/ml CONSISTENT WITH AN M.I.Performed By: #### 51016, 46878, 99040 #### [facility] [address] [place] [address], [facility] Vital Signs Date TimeVital SignValuePerforming RizcxqxoyBiohzxpw75-70-1960 08:22-0500Body hqoelv252.02 Van Keen [facility]- Work Phone: [facility]11-11-2025 08:22-0500 Body mass index (BMI) [Ratio]31.8 kg/w7JhacxpJanet Keen [facility]- Work Phone: [facility]11-11-2025 08:22-0500 Body vdasqvqbspd25.7 [degF]Janet Leonila [facility]- Work Phone: [facility]11-11-2025 08:22-0500 Body udhufg72.64 kgShelly Leonila HAZMAT TECHNICIAN-BC Work Phone: [phone] [place], [place] 1253811-11-2025 08:22-0500 Diastolic blood tavmrwvp11 mm[Hg]Janet Keen HAZMAT TECHNICIAN-BC Work Phone: 1([phone] [place], [place] 1253811-11-2025 08:22-0500 Heart rate80 /minSisis Keen HAZMAT TECHNICIAN-BC Work Phone: 1([phone] [place], [place] 1253811-11-2025 08:22-0500 SaO2% (BldA) [Mass fraction]98 %Janet Keen HAZMAT TECHNICIAN-BC Work Phone: 1([phone] [place], [place] 1253811-11-2025 08:22-0500 Systolic blood snyanvpf590 mm[Hg]Janet Keen HAZMAT TECHNICIAN-BC Work Phone: 1(110)[address] [place], [place] 1253811-06-2025 14:54-0500 Body .02 cmSisis Keen HAZMAT TECHNICIAN-BC Work Phone: [phone] [place], [place] 1253811-06-2025 14:54-0500 Body mass index (BMI) [Ratio]31.6 kg/h1KqlpmcJanet Keen HAZMAT TECHNICIAN-BC Work Phone: 1([phone] [place], [place] 1253811-06-2025 14:54-0500 Body frtxriwbrjc28.4 [degF]Janet Keen HAZMAT TECHNICIAN-BC Work Phone: 1(585)[address] [place], [place] 1253811-06-2025 14:54-0500 Body tanbqu75.19 kgJanet Keen HAZMAT TECHNICIAN-BC Work Phone: 1(165)[address] [place], [place] 1253811-06-2025 14:54-0500 Diastolic blood noxiwqri08 mm[Hg]Janet Keen HAZMAT TECHNICIAN-BC Work Phone: 1(701)[address] [place], [place] 1253811-06-2025 14:54-0500 Heart rate86 /Pola Keen HAZMAT TECHNICIAN-BC Work Phone: 1(257)[address] [place], [place] 1253811-06-2025 14:54-0500 Respiratory rate18 /Pola Keen HAZMAT TECHNICIAN-BC Work Phone: 1([phone] [place], [place] 1253811-06-2025 14:54-0500 SaO2% (BldA) [Mass fraction]96 %Janet Keen HAZMAT TECHNICIAN-BC Work Phone: 1(488)[address] [place], [place] 1253811-06-2025 14:54-0500 Systolic blood xdkmkbta242 mm[Hg]Janet Keen HAZMAT TECHNICIAN-BC Work Phone: 1(123)[address] [place], [place] 1253809-25-2025 10:57-0400 Diastolic blood mbhjbzle927 mm[Hg]Janet Keen HAZMAT TECHNICIAN-BC Work Phone: 1(682)[address] [place], [place] 1253809-25-2025 10:57-0400 Systolic blood gwgvnack778 mm[Hg]Janet Keen HAZMAT TECHNICIAN-BC Work Phone: 1(777)[address] [place], [place] 1253809-25-2025 10:46-0400 Body abccjo878.02 cmSisis Keen HAZMAT TECHNICIAN-BC Work Phone: 1(051)[address] [place], [place] 1253809-25-2025 10:46-0400 Body mass index (BMI) [Ratio]30.9 kg/x7WprttqJanet Keen HAZMAT TECHNICIAN-BC Work Phone: 1(013)[address] [place], [place] 1253809-25-2025 10:46-0400 Body xoeopxhfgdz18.4 [degF]Janet Keen HAZMAT TECHNICIAN-BC Work Phone: 1(620)[address] [place], [place] 1253809-25-2025 10:46-0400 Body .37 kgJanet Keen HAZMAT TECHNICIAN-BC Work Phone: 1(660)[address] [place], [place] 1253809-25-2025 10:46-0400 Heart rate97 /Ezhelly Leonila HAZMAT TECHNICIAN-BC Work Phone: 1(497)[address] [place], [place] 1253809-25-2025 10:46-0400 Respiratory rate18 /Ezheldaniel Liangann HAZMAT TECHNICIAN-BC Work Phone: 1(455)[address] [place], [place] 1253809-25-2025 10:46-0400 SaO2% (BldA) [Mass fraction]98 %Janet Keen HAZMAT TECHNICIAN-BC Work Phone: [facility]02-14-2019 23:33-0500 Respiratory rate14 /minDEFAULT PHYSICIANThe [facility] Comment on above:Performed By: #### [id number] #### [facility] [address] [place] [address], [id number] 22:19-0500Respiratory rate14 /minDEFAULT PHYSICIANThe [facility] CenterComment on above:Order Comment: No: Do not add to previous drawPerformed By: #### [id number] #### [facility] [address] [place] [address], [id number] 20:34-0500Respiratory rate12 /minDEFAULT PHYSICIANThe [facility] CenterComment on above:Performed By: #### 59929 #### [facility] [address] [place], [place] [address] [place] [address] Encounters Encounter DateEncounter TypeCare ProviderFacilityStart: 23-78-3293jvjijqnoukCJAngel BurgerFacility:[facility]ueStart: 32-07-8546yklyoygehoXJHKWM A LEHMANN Facility:[facility]ueStart: 01-23-2025 End: 23-82-1505hjzicyiugkRsxfwc A Lehmann HAZMAT TECHNICIAN-BC Work Phone: [facility]: 01-23-2025 End: 21-61-5792Fgdbmpz encounter procedureMarlena Carver APRN [facility] Work Phone: Start: 01-18-2025 End: 60-85-9776rlixeynqjrDyprzh A Lehmann HAZMAT TECHNICIAN-BC Work Phone: -[facility] ClydeStart: 01-18-2025 End: 05-85-7807Wlsdzul encounter procedureDereck Goodson MD-[facility] [place] Work Phone: Start: 26-09-7846Ema-patient / Non-visitDereck Goodson MD -[facility] Work Phone: Start: 12-26-2024 End: 46-00-6364Shflxpl encounter procedureDereck Goodson MD-[facility] [place] Work Phone: Start: 12-26-2024 End: 58-66-5573ctvcmvqybuFafobr A Lehmann HAZMAT TECHNICIAN- Work Phone: [facility] Work Phone: Start: 12-07-2024 End: 83-69-8097ooatohatpaYzsysj A Lehmann HAZMAT TECHNICIAN- Work Phone: [facility] Work Phone: Start: 12-07-2024 End: 21-13-9194Mwbxneo encounter procedureDereck Goodson MD-[facility] [place] Work Phone: Start: 11-02-2024 End: 19-35-0812yxutvhnzhzNFFGHNF [facility] Centertart: 09-28-2024 End: 10-86-9921oewimmtgzvSUKXUJ A LEHMANNFacility:[facility] BellevueStart: 09-04-2024 End: 26-09-1381jsmrukowtqWOVGTS A LEHMANNFacility:FTMCStart: 09-04-2024 End: 83-04-8939Axqeygs encounter procedureSISIS KEEN [facility] Start: 08-31-2024 End: 55-73-3393zjrpiqemqjWPUIPR A LEHMANNFacility:[facility] BellevueStart: 06-29-2024 End: 99-21-5499gxlopxejeyLaunaa E. RossFacility:[facility] BellevueStart: 06-21-2024 End: 06-00-0551qwnzhpjyygUC Samuel E. RossFacility:FTMCStart: 06-21-2024 End: 80-29-1560Qunfzzx encounter procedureSonofre Burger [facility] Start: 06-01-2024 End: 87-20-9043kbphlsavglLP Dandre Taylor TaoFacility:FTMCStart: 06-01-2024 End: 86-57-1269Siybbhw encounter procedureSonofre Burger [facility] Start: 05-11-2024 End: 96-52-9602noclfjtqiwMyqgox E. RossFacility:[facility] BellevueStart: 04-06-2024 End: 20-97-5798wldwntapfeJxuagz E. RossFacility:FTMCStart: 04-06-2024 End: 22-23-3455Brm Drop offSonofre Burger [facility] Start: 04-06-2024 End: 93-87-5893uvlphkybbmSfshdp E. RossFacility:[facility] BellevueStart: 04-04-2024 End: 37-71-2049dnuzbebnckDqkjkb E. RossFacility:[facility] BellevueStart: 01-04-2024 End: 00-00-5560Gza Drop offSonofre Burger [facility] Start: 01-04-2024 End: 55-24-1250aawfnjjpffPyzdzo E. RossFacility:[facility] BellevueStart: 10-04-2023 End: 34-38-6751ctjhisevvvDtsbwl E. RossFacility:[facility] BellevueStart: 09-13-2023 End: 29-53-2623zwqqzopsyrAtivkd E. RossFacility:[facility] FM BellevueStart: 08-27-2023 End: 30-53-1347pykvvzcqccUEQVWA A LEHMANNFacility:FT BellevueStart: 07-05-2023 End: 16-46-7249undqaffuurPpsdib E. RossFacility:FT BellevueStart: 06-22-2023 ambulatorySajohana BurgerFacility:FT BellevueStart: 05-19-2023 End: 65-45-5965acwnwpkgeyMPPILKN MCGILLNot AvailableStart: 05-05-2023 End: 03-83-2633Ieo Drop offIvett Vazquezab [facility] Start: 04-21-2023 End: 01-88-1634qynxsjzazpAZOHWJK MCGILLNot AvailableStart: 04-21-2023 End: 54-95-3493Woizbpn encounter procedureNoms Sh [facility] - Lalita Barraza CI AUDComment on above:Sensorineural hearing loss (SNHL) of both ears (Primary Dx)Start: 04-05-2023 End: 45-65-7042Fad Drop Carmen Burger [facility] Start: 03-31-2023 End: 77-31-3442reymtgjeomWXQXAKE MCGILLNot AvailableStart: 02-10-2023 End: 13-69-8788cerknnejzwCCMHJCX A MCGILLNot AvailableStart: 02-10-2023 End: 45-46-1478znslhrvtqcNQCYJWB A MCGILLNot AvailableStart: 12-14-2022 End: 88-73-7569Eht Drop offSonofre Burger [facility] Start: 07-28-2022 End: 96-70-2074lsxdmgbhwvTN STEPHEN G REINECKFacility:Y0Mmazi: 07-20-2022 End: 46-57-1107kjiosfjhniLR CHARLES HOUSEFacility:Z7Duros: 04-20-2022 End: 66-15-6777qzamloaktiYN GIANFRANCO HOUSEFacility:J2Akjsl: 10-10-2021 End: 85-82-8096oghclnnbnrWB GIANFRANCO HOUSEFacility:I4Zgelf: 08-18-2021 End: 81-51-5350uvbjosjurzYOGHBCA TUCKERFacility:M4Yusyv: 04-25-2018 End: 43-55-2420Cmbcihdbkf and management of inpatientMUHAMMAD R OANH Facility:[facility]: 03-20-2018 End: 81-02-1384Pbvizctatq and management of inpatientShahab Ud DinFacility:[facility] Start: 01-19-2018 End: 01-60-5891Jnxngpj encounter procedureDEFAULT PHYSICIANFacility:[facility] Procedures DateProcedureProcedure DetailPerforming ClinicianStart: 12-26-2024 Ultrasonography of bilateral kidneysJanet Keen HAZMAT TECHNICIAN-BC Work Phone: Start: 52-89-3255Hddalrvg screenDEFAULT PHYSICIAN Comment on above:Performed By: #### [id number] #### [facility] [address] [place] [address], USAStart: 09-82-7641TKIWNA 1 COR ART FROM THOR ART, OPEN APPROACHNNAMDI AZIEStart: 52-19-7905ORAZNG 3 COR ART FROM AORTA WITH AUTOL VN, OPEN APPROACHNNAMDI AZIEStart: 40-73-4274GETIALDN OF LEFT SAPHENOUS VEIN, PERC ENDO APPROACHNNAMDI AZIEStart: 16-31-2110UBTWXRDLJ OF MONITOR DEV INTO PULM TRUNK, PERC APPROACHALI M HASSANStart: 81-52-6479Hbmxrnlxpug of Cardiac Output, ContinuousNNAMDI AZIEStart: 86-46-7101TONHHFMPB NONAUT RED BLOOD CELLS IN PERIPH VEIN, PERCALI M HASSANStart: 88-25-7286GUZELOSPMJLCQEV OF HEART WITH AORTA, TRANSESOPHAGEALALI M HASSANStart: 50-47-8544Dgffxcmn screenDEFAULT PHYSICIAN Comment on above:Performed By: #### 47428, 48595, 46230 #### [facility] [address] [place] [address], USAStart: 47-62-5720MZCAELKNNU OF ARTERIAL SATURATION, PERIPHERAL, PERC APPROACHMUHAMMAD R FAISALStart: 69-85-3959NEQQZLNCXBT OF MULTIPLE CORONARY ARTERIES USING OTH CONTRASTSAVAGEORSAVAGE LYNCHtart: 05-04-2016 ColonoscopySajohana Burger Cesarean sectionSonofre Burger CholecystectomyDandre Burger Coronary artery bypass grafts x 4Sonofre Burger Decompression of median nerveSonofre Burger Excision of lipoma of backDandre Burger History of coronary artery bypass graftingS/P CABG x 3 Dandre Burger Total hysterectomy via vaginal approachDandre Burger Plan of Treatment DateCare ActivityDetailAuthorStart: 05-05-2023 End: 51-04-7339Uepqyen encounter waqivifca98/21/2024 8:30 AM EST Office Visit [facility] [address] [place] [address] [facility] CI AUDImmunofixation for UrineThe Christ HospitalRenal function 1999 panel - Serum or PlasmaThe Christ HospitalRenal function 1999 panel - Serum or PlasmaThe Christ HospitalUS Kidney - bilateral [facility] Immunizations Immunization DateImmunizationNotesCare PoajuqejTztbdsby39-87-3429jiahyoriy, high dose seasonal, preservative-free; Translations: [Fluzone High Dose Vaccine] Dandre Burger [phone]-LhcbqMer[facility] 09-21-1083cosnilzku, injectable, quadrivalent, preservative freeDandre Burger [phone]-FtnqvMercy Health – The [facility] Hospital 56-72-5896bdfttr vaccine recombinantSonofre Burger [phone]-GshhqSelect Medical [facility]03-17-2022zoster vaccine Chanel Burger 310-1506Mvbpsl-BdkphSelect Medical [facility]health Rehabilitation Hospital12-18-2021 SARS-CoV-2 (COVID-19) mRNA BNT-162b2 James Burger [phone]-MafmcMercy Health – The Jewish Hospital 91-82-0619SOWY-CoV-2 (COVID-19) mRNA BNT-162b2 James Burger 409-6839Sgdrmn-TrnmkMercy Health – The Jewish Hospital 28-64-5184NMBG-CoV-2 (COVID-19) mRNA BNT-162b2 James Burger 544-3996Gifakr-RznmpMercy Health – The Jewish Hospital NEGATED: Highlighted row has not occurred!75-09-6711tkkqqsxsm virus vaccine, unspecified formulationSonofre Burger [phone]-ZrkfkSelect Medical [facility] Hospital Payers DatePayer CategoryPayerPolicy [id number] [id number] [id number] [id number] 1960Medicaid [id number] 2.840.1.668311.3.57[id number] 2.840.1.762026.3.57[id number] 2.840.1.798704.3.57[id number] 2.16.840.1.552570.3.57[id number] 2.16.840.1.980850.3.57[id number] 2.16.840.1.658558.3.579.2.00970-34-4141Jrqpepf7350602 2.16.840.1.590851.3.579.2.18117-99-2185Wtszyxn2541607 2.16.840.1.511385.3.579.2.02384-33-4643Bqqytun6825289 2.16.840.1.725188.3.579.2.958786-02-4234Litssae2930266 2.840.1.589816.3.579.2.746132-55-2883Sjtztli2466806 2.840.1.259080.3.579.2.801296-31-1034Mlfando222817 2.840.1.087970.3.579.2.002675-26-2109Ohduyfj682513 2.16840.1.354971.3.579.2.278484-77-4175Cymmqie05813818 2.16840.1.067916.3.579.2.39925-31-8621Inoxjzo32336773 2.16840.1.667256.3.579.2.84958-00-4675Ecjvvqd19805099 2.16840.1.634450.3.579.2.26286-55-0305Sfdgepa66077777 2.16840.1.361674.3.579.2.68788-35-7812Vcyljlg75544883 2.16840.1.071432.3.579.2.87664-19-8646Iznddsg49048098 2.16.840.1.909837.3.579.2.68964-57-9531Covrwen77310646 2.16.840.1.196748.3.579.2.55915-57-5082Dscckyb49774713 2.16.840.1.144768.3.579.2.94314-50-3036Xeexoec31683425 2.16.840.1.202909.3.579.2.67360-62-6799Pyhsaut75736048 2.16.840.1.305184.3.579.2.98619-27-5558Hblxmcy02830248 2.16840.1.235383.3.579.2.85814-36-8355Ampxfpp23652801 2.840.1.157324.3.579.2.49902-82-2370Iryfamo51698009 2.16.840.1.962955.3.579.2.20140-87-0224Hiqngij37118350 2.16.840.1.314172.3.579.2.69726-12-4594Qjixqmx16733567 2.16840.1.279413.3.579.2.72126-36-3515Gkuwctx75650871 2.16.840.1.265605.3.579.2.82728-91-2508Thbqybk92353940 2.16.840.1.590838.3.579.2.33611-03-6564Fgexzvi25618109 2.16.840.1.207701.3.579.2.51630-92-0950Nxwtzbw40836320 2.16.840.1.694686.3.579.2.906CmmgeulN9718512956Lscdbnh62516036 2.16.840.1.757852.3.579.2.531 Social History DateTypeDetailFacilityStart: 12-14-2022 End: 80-31-5935Qykyrwi smoking statusHeavy tobacco smoker (finding)[facility] smoking statusNeverSelect Medical Trihealth Rehabilitation HospitalComment on above:Patient quit 4patient smokes 4-5 cigarettes a day. Smoked 1.5 ppd x 8 years, 1 ppd x 4 years, 9 years 1/[address] [facility] status NHISTobacco smoking consumption unknownDAVIS [facility] HealthcareStart: [id number] Assigned At BirthNot on fileDAVIS HOSPITAL AND MEDICAL CENTER HealthcareStart: 05-05-2023 End: [id number] smoking statusEx-smoker (finding)[facility] HospitalComment on above:Patient quit 4patient smokes 4-5 cigarettes a day. Smoked 1.5 ppd x 8 years, 1 ppd x 4 years, 11 years 1/2 ppdStart: 04-06-2024 End: 10-52-0300Ngssnkc smoking statusLight tobacco smoker (finding)[facility] HospitalComment on above:Patient quit 03/2023 patient smokes 4-5 cigarettes a day. Smoked 1.5 ppd x 8 years, 1 ppd x 4 years, 11 years 1/2 ppdSexual OrientationMary Rutan Hospital Start: [id number] (finding)[facility] 12-07-2024 End: 04-39-1970Cglifdi smoking status NHISSmokes tobacco daily (finding) [facility]: [id number] Assigned At BirthFeOhio State East [facility] Medical Equipment Procedure CodeEquipment CodeEquipment Original TextEquipment IdentifierDatesMisc DME Prescription, See Instructions, 60 Unspecified/Unknown, 3, Droplet 32G x 1/4 needles. Useto inject insulin sub q twice a day, [facility] [id number], Supply, 160, cm, 01/04/24 7:21:00 EDT, Height/Length Dosing, 78.7, kg, 01/04/24 7:21:00 EDT, Weight DosingStart: 56-84-2872Kodu DME Prescription, See Instructions, 60 Unspecified/Unknown, 3, Droplet 32G x 1/4 needles. Useto inject insulin sub q twice a day, [facility] [id number], Supply, 160, cm, 01/04/24 7:21:00 EDT, Height/Length Dosing, 78.7, kg, 01/04/24 7:21:00 EDT, Weight DosingStart: 28-84-3721Sjcs DME Prescription, See Instructions, 60 Unspecified/Unknown, 3, Droplet 32G x 1/4 needles. Useto inject insulin sub q twice a day, [facility] [id number], Supply, 160, cm, 01/04/24 7:21:00 EDT, Height/Length Dosing, 78.7, kg, 01/04/24 7:21:00 EDT, Weight DosingStart: 46-89-1957Bwpr DME Prescription, See Instructions, 60 Unspecified/Unknown, 3, Droplet 32G x 1/4 needles. Useto inject insulin sub q twice a day, [facility] [id number], Supply, 160, cm, 01/04/24 7:21:00 EDT, Height/Length Dosing, 78.7, kg, 01/04/24 7:21:00 EDT, Weight DosingStart: 34-62-4586Ihxv DME Prescription, See Instructions, 60 Unspecified/Unknown, 3, Droplet 32G x 1/4 needles. Useto inject insulin sub q twice a day E11.69, [facility] [id number], Supply, 161.5, cm, 06/29/24 7:50:00 EDT, Height/Length Dosing, 78.4, kg, 06/29/24 7:50:00 EDT, Weight DosingStart: 07-20-2024 Clinical Notes 04-21-2023 to 12-26-2024 Note Date & [id number] Radiology [facility] [place] [address] [place] [address] Ultrasound Report Signed Patient: Pato Corral MR#: [id number] : 1960 Acct:[id number] Age/Sex: 64 / F ADM Date: 5 Loc: Room: Type: [facility] Attending Dr: Dereck Goodson MD Ordering Provider: Dereck Goodson MD Date of Service: 12/26/24 US/US renal BI: I25.10 - Atherosclerotic heart disease of [place] coronary... Copies to: Dereck Goodson MD~ BILATERAL [...] Jr., D.OMariia 12/26/2024 2:00 PM Dictation Location: [place] [address] Tech: Marlena Ivan Transcribed By: DIONY 12/26/24 1400 Dictated By: Júnior Yanez Jr, DO 12/26/24 1359 Signed By: 12/26/[address] [place], [place] 3399009-25-2025 Evaluation note* Diagnosis Onset Date Resolution Status Admit Date CAD (coronary artery disease) acuteSeptember 2024 10:43amCKD (chronic kidney disease) stage 3, GFR 30-59 ml/minacuteSeptember 2024 10:43amHyperlipidemiaacuteSeptember 2024 10:43amHypertensive chronic kidney disease with stage 1 through stage 4 chronic kiacuteSeptember 2024 10:43amMicroalbuminuriaacuteSeptember 2024 10:43amSecondary hyperparathyroidismacuteSept2024 10:43amType 2 diabetes mellitus with diabetic chronic kidney diseaseacuteSept2024 10:43am [facility] Work Phone: 1(373) 275-945209-25-2025 Evaluation note* Diagnosis Onset Date Resolution Status Admit Date CAD (coronary artery disease) acuteSeptember 2024 10:43amCKD (chronic kidney disease) stage 3, GFR 30-59 ml/minacuteSeptember 2024 10:43amHyperlipidemiaacuteSeptember 2024 10:43amHypertensive chronic kidney disease with stage 1 through stage 4 chronic kiacuteSeptember 2024 10:43amMicroalbuminuriaacuteSeptember 2024 10:43amSecondary hyperparathyroidismacuteSept2024 10:43amType 2 diabetes mellitus with diabetic chronic kidney diseaseacuteSept2024 10:43amCAD (coronary artery disease)acuteNov2024 2:39pmCKD (chronic kidney disease) stage 3, GFR 30-59 ml/minacuteNov2024 2:39pm HyperlipidemiaacuteNov2024 2:39pmHypertensive chronic kidney disease with stage 1 through stage 4 chronic kiacuteNovember 2024 2:39pm MicroalbuminuriaacuteNov2024 2:39pmSecondary hyperparathyroidismacute January 18, 2025 2:39pmType 2 diabetes mellitus with diabetic chronic kidney diseaseacuteNov2024 2:39pm [facility] Work Phone: 1(396) 898-139409-25-2025 Evaluation note* Diagnosis Onset Date Resolution Status Admit Date CAD (coronary artery disease) acuteSept2024 10:43amCKD (chronic kidney disease) stage 3, GFR 30-59 ml/minacuteSeptember 2024 10:43amHyperlipidemiaacuteSeptember 2024 10:43amHypertensive chronic kidney disease with stage 1 through stage 4 chronic kiacuteSeptember 2024 10:43amMicroalbuminuriaacuteSeptember 2024 10:43amSecondary hyperparathyroidismacuteSept2024 10:43amType 2 diabetes mellitus with diabetic chronic kidney diseaseacuteSept2024 10:43amAnemia of renal diseaseacuteNov2024 2:39pmCAD (coronary artery disease)acuteNov2024 2:39pmCKD (chronic kidney disease) stage 3, GFR 30-59 ml/minacuteNovember 2024 2:39pmHyperlipidemiaacuteNovember 2024 2:39pmHypertensive chronic kidney disease with stage 1 through stage 4 chronic kiacuteNovember 2024 2:39pmMicroalbuminuriaacuteNovember 2024 2:39pm Secondary hyperparathyroidismacuteNovember 2024 2:39pmType 2 diabetes mellitus with diabetic chronic kidney diseaseacuteNov2024 2:39pmType 2 diabetes mellitus with diabetic chronic kidney diseaseacuteNov2024 8:19am [facility] Work Phone: 1(539) 921-429509-24-2025 NoteShe told me she was scheduled to see them soon. I didn't place a referral.[facility] 11-30-2024 NotePlease let her know her ECHO looked good, normal pumping function, no significant valve issues.[facility]08-21-2025 Note Patient is here today [...] Musculoskeletal: Positive for back pain and joint pain.[facility]08-21-2025 NoteCardiovascular Medicine [facility] SUBJECTIVE Chief Complaint Patient presents with Coronary Artery Disease Hypertension Hyperlipidemia Pato Corral is a 64 y.o. female here for follow-up. PMHx: DM, CAD s/p CABG 2018, HTN, HLD HPI 11/02/2024 She denies any changes since last seen. She will be seeing nephrology with [facility] soon for her CKD stage III. She is [...] vein graft into the (more content not included)...[facility]07-17-2025 NotePatient Education Nephrology Chronic Kidney [...] these instructions at home: Medicines ??? Take kcpw-euk-kpspewt and prescription medicines only as told by [...] contain nicotine or tobac (more content not included)...[facility]06-19-2025 NotePatient Education Orthopedics Chronic Back Pain Chronic [...] them backward. ??? 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 ??? Take [...] body. ? Avoid twisting. Medicines ??? Take plok-xqd-qcdfkak and prescription medicines only as told by [...] your pee (urine) pale yellow. ? Take pdhg-bii-ioaycuk or prescription medicines. ? Eat foods that [...] provider. Document Revised: 10/19/2022 Document Reviewed: 10/19/2022 [employer] Patient Education ? 2023 [employer].[facility] 06-29-2024 NotePatient Education Nephrology Chronic Kidney Disease, [...] these instructions at home: Medicines ??? Take pptb-ibn-nycdxav and prescription medicines only as told by [...] contain nicotine or tobac (more content not included)...[facility]02-27-2025 NotePatient Education Emergency Medicine Heart Attack A heart attack occurs when blood and oxygen supply to the heart is cut off. A heart attack can cause damage to the heart that cannot be fixed. A heart attack is also called a myocardial infarction, or RI. If you think you are having a [...] these instructions at home: Medicines ??? Take cjcg-cpk-cpxvuvi and prescription medicines only as told by [...] vomit. ??? You fe (more content not included)...[facility]01-23-2025 NotePatient Education Nutrition BMI for Adults Body [...] for Disease Control and Prevention: cdc.gov ??? [place] Heart Association: heart.org ??? National Heart, Lung, and Blood Kenneth: nhlbi.nih.gov This information is not intended to replace advice given to you by your health care provider. Make sure you discuss any questions you have with your health care provider. Document Revised: 11/19/2022 Document Reviewed: 11/12/2022 [employer] Patient Education ? 2023 [employer].[facility] 09-13-2023 NotePatient Education Nutrition BMI for Adults [...] numbers. This can be done either in [place] or metric measurements. Note that charts and online BMI calculators are available to help you find your BMI quickly and easily without having to do these calculations yourself. To calculate your BMI in [place] measurements: 1. Measure your weight in [...] for Disease Control and Prevention: www.cdc.gov ? [place] Heart Association: www.heart.org ? National Heart, Lung, and Blood Kenneth: www.nhlbi.nih.gov Summary ? Body mass index (BMI) is a number that is calculated from a person's weight and height. ? BMI may help estimate how much of a person's weight is composed of fat. BMI can help identify those who may be at higher risk for certain medical problems. ? BMI can be measured using [place] measurements or metric measurements. ? BMI charts are used to identify whether you are underweight, normal weight, overweight, or obese. This information is not intended to replace advice given to you by your health care provider. Make sure you discuss any questions you have with your health care provider. Document Revised: 11/22/2019 Document Reviewed: 09/29/2019 [employer] Patient Education ? 2022 [employer].[facility] 04-21-2023 History of Present illness Narrative* Lalita [...] the [employer] hearing aids. documented in this encounterNOUT HealthcareEvaluation + Plan note Future Appointments Appointment Date:12/28/2022 07:40:00 AM Scheduled Provider:Dandre Burger MD [facility] Future Appointments Appointment Date:04/12/2023 10:00:00 AM Scheduled Provider: [facility] Type:CT Chest, Low Dose Screening (FT) Appointment Date:05/05/2023 11:00:00 AM Scheduled Provider: Location:[facility] Appointment Type: Medicare Wellness Subsequent Appointment Date:07/05/2023 09:15:00 AM Scheduled Provider:Dandre Burger MD [facility] Appoint[facility] Type: Open Future Scheduled Tests Radiology* CT Chest, Low Dose Screening 04/12/23 [facility] Future Appointments Appointment Date:07/05/2023 09:15:00 AM Scheduled Provider:Dandre Burger MD Location[facility] Appointment Type: Open Appointment Date:05/05/2024 11:00:00 AM Scheduled Provider: Location:[facility] Appointment Type:FM Medicare Wellness Subsequent Diagnostic Tests Pending * HCV Antibody RFX to Quant PCR 05/05/23 [facility] Future Appointments Appointment Date:04/04/2024 07:15:00 AM Scheduled Provider:Dandre Burger MD Location:[facility] Appointment Type: Open Appointment Date:05/11/2024 08:00:00 AM Scheduled Provider: Location:[facility] Appointment Type: Medicare Wellness Subsequent [facility] Evaluation + Plan note Future Appointments Appointment Date:05/11/2024 08:00:00 AM Scheduled Provider: Location:[facility] Appointment Type: Medicare Wellness Subsequent Appointment Date:06/29/2024 08:15:00 AM Scheduled Provider:Dandre Burger MD Location:[facility] Appointment Type: Open [facility] Evaluation + Plan note Future Appointments Appointment Date:06/29/2024 08:15:00 AM Scheduled Provider:Dandre Burger MD Location:[facility] Appointment Type: Open Appointment Date:05/14/2025 08:00:00 AM Scheduled Provider: Location:[facility] Appointment Type: Medicare Wellness Subsequent Future Scheduled Tests Radiology* CT Chest, Low Dose Screening 05/16/24 [facility] Evaluation + Plan note Future Appointments Appointment Date:06/29/2024 08:15:00 AM Scheduled Provider:[facility] Type:FM Open Appointment Date:05/14/2025 08:00:00 AM Scheduled Provider: [facility] App[facility] Type: Medicare Wellness Subsequent [facility] Evaluation + Plan note Future Appointments Appointment Date:09/28/2024 07:40:00 AM Scheduled Provider:Dandre Burger MD [facility] Appointment Type: Open Appointment Date:05/14/2025 08:00:00 AM Scheduled Provider: [facility] Appoint[facility] Type: Medicare Wellness Subsequent [facility] evaluation note* Diagnosis Sensorineural hearing loss (SNHL) [...] 2 diabetes mellitus with diabetic chronic kidney diseaseacuteSeptember 2024 10:43am [facility] Work Phone: Hospital course Narrative No data available for this section [facility] HospitalHospital Discharge instructions No data available for this section [facility] HospitalHospital Discharge instructionsAmbulatory Orders* Referral to Diabetes Management Time Frame: 01/23/25, Location: None [facility] Work Phone: Progress note No data available for this section [facility] HospitalReason for referral (narrative)No reason for referral information availableLouis [facility] Work Phone: Summary Purpose Family History Relationship Condition Age at Onset Recorded Date/T rambo mother Asthma Unknown fatherMyocardial infarctionUnknown Advance Directives Advance Directive Response Recorded Date/ Time Advance Directives No October 09 11:37am Advance Directive Response Recorded Date/ Time Advance Directives No October 09 10:37am Hospital Course Note MR#: [id number] [facility] Pt. Name: Pato Corral Admitted: 03/20/2018 Discharged: [...] (more content not included)... Note MR#: [id number] [facility] Pt. Name: Pato Corral Admitted: 04/25/2018 Discharged: [...] E11.22 N 18.30 December 26, 2024 1:15pm Chief Complaint Admit Date ckd 3 December 07, 2024 10:43am I25.10 R80.9 E78.5 N25.81 I12.9 E11.22 N 18.30 December 26, 2024 1:15pm RENAL 6 WEEK F/U January 18, 2025 2 :39pm Reason for Visit Admit Date CAD (coronary [...] chronic kidney disease December 07, 2024 10:43am CAD (coronary artery disease) January 182024 2:39pm [...] chronic kidney disease January 18, 2025 2:39pm Chief Complaint Admit Date ckd 3 December 07, 2024 10:43am I25.10 R80.9 E78.5 N25.81 I12.9 E11.22 N 18.30 December 26, 2024 1:15pm RENAL 6 WEEK F/U January 18, 2025 2 :39pm Establish Care January 23, 2025 8:19am Reason for Visit Admit Date CAD (coronary [...] chronic kidney disease January 18, 2025 2:39pm Type 2 diabetes mellitus wit h diabetic chronic kidney disease January 23, 2025 8:19am Additional Source Comments INFORMATION SOURCE (unrecogn ized section and content) DATE CREATED AUTHOR 05/17/2018 [facility] DATE CREATED AUTHOR AUTHOR'S ORGANIZ ATION 07/29/2022 [facility] DATE CREATED AUTHOR AUTHOR'S ORGANIZ ATION 05/20/2023 [facility] DATE CREATED AUTHOR AUTHOR'S ORGANIZ ATION 05/13/2024 [facility] DATE CREATED AUTHOR AUTHOR'S ORGANIZ ATION 07/01/2024 [facility] DATE CREATED AUTHOR AUTHOR'S ORGANIZ ATION 09/30/2024 [facility] DATE CREATED AUTHOR AUTHOR'S ORGANIZ ATION 12/22/2024 [facility] DATE CREATED AUTHOR AUTHOR'S ORGANIZ ATION 12/28/2024 [facility] Patient Care team informatio n (unrecognized section and content) Team MemberRelationshipSpecialtyStart DateEnd Date Gianfranco Lau MD [address] [place] [address] PCP - [facility]Mercyone [facility] Centerly Medicine09/08/22 Team Status: Active Member Role Status Dates MALENA Barba Primary Care Provider Active Team Status: Inactive Member Role Status Dates Dereck oGodson MD Attending Provider Active Start : December 07, 2024 End: December 07, 2024David Barbay Care ProviderActive Start: December 07, 2024 End: December 07, 2024 Team Status: Inactive Member Role Status Dates MALENA Barba Primary Care Provider Active Start: December 26, 2024 End: December 26bdlidia Hamzah , MDAttending ProviderActiveStart: December 26, 2024 End: December 26, 2024 Team Status: Active Member Role/Relationship Status Dates MALENA Barba Primary Care Provider Active Team Status: Inactive Member Role/Relationship Status Dates Dereck Goodson MD Attending Provider Active Start : December 07, 2024 End: December 07, 2024David Barbay Care ProviderActive Start: December 07, 2024 End: December 07, 2024 Team Status: Inactive Member Role/Relationship Status Dates MALENA Barba Primary Care Provider Active Start: December 26, 2024 End: December 26bdul Hamzah , MDAttending ProviderActiveStart: December 26, 2024 End: December 26, 2024 Team Status: Active Member Role/Relationship Status Dates Janet Keen [facility] Primary Care Provider Active Start: January 12, 2025 Pk Monreal ProviderActiveStart: January 12, 2025 Team Status: Inactive Member Role/Relationship Status Dates Janet Keen [facility] Primary Care Provider Active Start: January 18, 2025 End: January 18Pk Ashford ProviderActiveStart: January 18, 2025 End: January 18, 2025 Team Status: Active Member Role/Relationship Status Dates Marlena Carver APRN [employer] Primary Care Provider Active Team Status: Inactive Member Role/Relationship Status Dates Marlena Carver APRN [employer] Primary Care Provider Active Start: January 232024 End: January 23, 2025Marlena Carver APRN [employer]-CAttending ProviderActive Start: January 23, 2025 End: January 23, 2025 Reason for Visit (unrecogniz ed section and [...] BE BASED ON THE PRIMARY CLINICAL RECORDS. [facility] [employer] [facility]. provides no warranty or guarantee of the accuracy or completeness of information in this document.
[2025-02-23 13:06] VITALS: BP 163/97; PULSE 82; O2SAT 98
[2025-02-23] MEDS: ACETAMINOPHEN 300 MG/ 30 MG CODEINE TABLET 1 TAB PO (13:13)
== END 2025-02-23 13:14 | disposition home or self-care (01) ==
PROVIDERS: Emergency Provider Emergency Medicine; PCP Nurse Practitioner Family
DX: S30.0XXA Contusion of lower back and pelvis, initial encounter (principal); W00.9XXA Unspecified fall due to ice and snow, initial encounter
CPT/HCPCS: 72131; 73700; 76376; 99284